=== PATIENT | female | born 1930 | race Caucasian/White ===

== ENCOUNTER → 2016-05-30 | Outpatient (CLI) | payer MEDICARE, OTHER ==
[~2016-05-30] MED LIST: AMLO5TAB2 PO; ASPI-587 PO; ATOR20TA66 PO; CARV25TA PO; CEFD300C3 PO; CHOL50003 PO; CYAN10007 PO; INDA1.25 PO; LINE600T5 PO; LISI-597 PO; LISI10TA2 PO; SIMV20TA3 PO
--- NOTE | 2016-05-31 19:24 | Diagnostic Imaging Report ---
INDICATION: Bilateral diagnostic mammogram. This study was compared to the prior exams of 11/12/15, 05/07/15 and 09/24/13. At this time, there are no current complaints. The current study was also evaluated with a Computer Aided Detection (CAD) system. FINDINGS: The screening mammogram performed on 05/07/15 noted increasing calcifications in the upper-outer aspect of the left breast. The subsequent diagnostic mammogram on 05/19/15 indicated that these calcifications did not have an aggressive appearance and are most likely benign. On this study, the calcifications in question do not seem to have changed significantly. I do suspect that they are benign. I would recommend that a six-month followup exam of both breasts be performed for continued evaluation, however. There are scattered fibroglandular densities in each breast which could obscure a lesion. When compared to the prior exam, there has been no significant change, however. There is no primary or secondary sign of malignancy noted. IMPRESSION: The calcifications in the upper-outer quadrants of each breast seen previously are again evident and do not appear to have changed significantly. Most likely, these are benign. Recommendations as above. ACR BI-RADS Category 3: Probably benign findings. Result letter will be mailed to the patient. Note: At least 10% of breast cancer is not imaged by mammography. Dictated by: Dictated on workstation # [id number]
== END ==
LOC: RAD 11:58
PROVIDERS: ATTEND Nurse Practitioner Family
DX: R92.1 Mammographic calcification found on diagnostic imaging of breast (principal)
CPT/HCPCS: 77066

== ENCOUNTER → 2016-12-19 | Outpatient (CLI) | payer MEDICARE, OTHER ==
--- NOTE | 2016-12-19 13:59 | Diagnostic Imaging Report ---
EXAMINATION: Bilateral diagnostic mammogram. The current study was also evaluated with a Computer Aided Detection (CAD) system. A tomographic evaluation was also performed. INDICATION: Calcifications in the upper outer aspect of each breast. COMPARISON: 05/30/2016. FINDINGS: The calcifications in the upper outer aspect of each breast appear unchanged from the prior exam with no focal mass identified. Allowing for technique and positional differences, no suspicious change is seen. IMPRESSION: No significant change. ACR BI-RADS Category 2: Benign findings. Result letter will be mailed to the patient. Note: At least 10% of breast cancer is not imaged by mammography. Dictated by: Dictated on workstation # [id number]
== END ==
LOC: RAD 12:36
PROVIDERS: ATTEND Family Medicine
DX: R92.8 Other abnormal and inconclusive findings on diagnostic imaging of breast (principal)
CPT/HCPCS: 77066

== ENCOUNTER 2017-02-19 16:31 | Emergency (ER) | payer MEDICARE, OTHER ==
[~2017-02-19] VITALS: Ht 157.5 cm; Wt 58.5 kg
--- OUTSIDE RECORDS SUMMARY | 2017-02-19 16:35 | XMS REPORT | Clinical Summary ---
Author Author [facility] Organization [facility] Address Unknown Phone Unavailable Care Team Providers Care Dry Cleaning Checker Name Role Phone PCP Unavailable Source Comments Some departments are not documenting in the electronic medical record. If you do not see the information that you expected, contact Release of Information in the Health Information Management department at [phone] for further assistance in locating additional records.[facility] Allergies Active Allergy Reactions Severity Noted Date Comments Amoxicillin-Pot RASH Medium 10/14/2014 Rash about 20-30 years Clavulanate ago per patient, tolerated ertapenem Nitrofurantoin UNKNOWN Low 09/05/2014 Macrocrystalline Current Medications Prescription Sig. Disp. Refills Start End Date Status Date fluticasone (FLONASE) 50 Apply 1 [place] to each Active mcg/actuation nasal spray nostril as directed daily. carvedilol (COREG) 25 mg Take 1 Tab by mouth twice 60 Tab 3 09/15/19 Active tablet daily. 15 amLODIPine (NORVASC) 5 mg Take 2 Tabs by mouth 30 Tab 3 09/15/19 Active tablet daily. 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 No evidence of recurrent retention. Voiding well. F/u w/ [facility] prn. Family History Medical History Relation Name Comments Heart Attack Mother Hypertension Mother Relation Name Status Comments Mother Social History Tobacco Use Types Packs/Day Years Used Date Never Smoker Smokeless Tobacco: Never Used Alcohol Use Drinks/Week oz/Week Comments No Sex Assigned at Date Recorded Not on file Last Filed Vital Signs Vital Sign Reading Time Taken Blood Pressure 150/62 10/14/2014 2:29 PM CDT Pulse 66 10/14/2014 2:29 PM CDT Temperature 36.5 C (97.7 F) 10/14/2014 1:08 PM CDT Respiratory Rate 12 10/14/2014 1:08 PM CDT Oxygen Saturation 94% 09/14/2014 3:15 PM CDT Inhaled Oxygen - - Concentration Weight 61.2 kg (135 lb) 10/14/2014 2:29 PM CDT Height 154.9 cm (5' 1") 10/14/2014 2:29 PM CDT Body Mass Index 25.51 10/14/2014 2:29 PM CDT Plan of Treatment Health Maintenance Due Date Last Done Comments PHYSICAL (COMPREHENSIVE) 04/29/1937 EXAM PERTUSSIS VACCINE 04/29/1942 TETANUS VACCINE 04/29/1948 SHINGLES VACCINE 1991 OSTEOPOROSIS SCREENING 04/29/1996 PREVNAR/PNEUMOVAX (#1) 04/29/1996 INFLUENZA VACCINE 09/27/2016 Results Not on filefrom Last 3 Months
--- OUTSIDE RECORDS SUMMARY | 2017-02-19 16:37 | XMS REPORT | Continuity of Care Document ---
Author Author [facility] Organization [facility] Address Unknown Phone Unavailable Allergies Active Description Code Type Severity Reaction Onset Reported/Identified Relationship to Patient Clinical Status Yes nitrofurantoin [id number] Drug Allergy Unknown N/A 10/28/2013 Medications There is no data. Problems Date Dx Coded Attending Type Code Diagnosis Diagnosed By 10/28/2013 YASMEEN TAYLOR APRN Ot 459.89 CIRCULATORY DISEASE NEC 10/28/2013 YASMEEN TAYLOR APRN Ot 729.5 PAIN IN LIMB 08/16/2014 TERRANCE NIEVES, LAKESHA Ewing Ot 288.60 LEUKOCYTOSIS, UNSPECIFIED 08/16/2014 LAKESHA CARLOS MD Ot 780.60 FEVER, UNSPECIFIED 08/16/2014 LAKESHA CARLOS MD Ot 784.0 HEADACHE 08/18/2014 MICHELE NIEVES, NELY Alves Ot 401.9 08/18/2014 MICHELE NIEVES, NELY Alves Ot 572.0 08/18/2014 MICHELE NIEVES, NELY Alves Ot V10.83 08/18/2014 MICHELE NIEVES, NELY A Ot V13.02 08/18/2014 MICHELE NIEVES, NELY A Ot 401.9 08/18/2014 MICHELE NIEVES, NELY Alves Ot 572.0 08/18/2014 MICHELE NIEVES, NELY A Ot V10.83 08/18/2014 MICHELE NIEVES, NELY A Ot V13.02 08/21/2014 MICHELE NIEVES, NELY A Ot 401.9 08/21/2014 MICHELE NIEVES, NELY Alves Ot 572.0 08/21/2014 MICHELE NIEVES, NELY A Ot V10.83 08/21/2014 MICHELE NIEVES, NLEY A Ot V13.02 08/22/2014 MICHELE NIEVES, NELY Alves Ot 401.9 HYPERTENSION NOS 08/22/2014 MICHELE NIEVES, NELY Alves Ot 572.0 ABSCESS OF LIVER 08/22/2014 MICHELE NIEVES, NELY A Ot V10.83 HX-SKIN MALIGNANCY NEC 08/22/2014 MICHELE NIEVES, NELY A Ot V13.02 PERSONAL HISTORY, URINARY (TRACT) INFECT 08/25/2014 MICHELE NIEVES, NELY A Ot 401.9 08/25/2014 MICHELE NIEVES, NELY A Ot 572.0 08/25/2014 MICHELE NIEVES, NELY A Ot V10.83 08/25/2014 MICHELE NIEVES, NELY A Ot V13.02 08/26/2014 MICHELE NIEVES, NELY A Ot 401.9 08/26/2014 MICHELE NIEVES, NELY A Ot 572.0 08/26/2014 MICHELE NIEVES, NELY A Ot V10.83 08/26/2014 MICHELE NIEVES, NELY A Ot V13.02 08/26/2014 MICHELE NIEVES, NELY A Ot 401.9 08/26/2014 MICHELE NIEVES, NELY A Ot 572.0 08/26/2014 MICHELE NIEVES, NELY A Ot V10.83 08/26/2014 MICHELE NIEVES, NELY A Ot V13.02 09/01/2014 MICHELE NIEVES, NELY A Ot 041.04 STREPTOCOCCUS INFECTION NOS, GROUP D (EN 09/01/2014 MICHELE NIEVES, NELY A Ot 276.8 HYPOPOTASSEMIA 09/01/2014 MICHELE NIEVES, NELY A Ot 285.9 ANEMIA NOS 09/01/2014 MICHELE NIEVES, NELY A Ot 401.9 HYPERTENSION NOS 09/01/2014 MICHELE NIEVES, NELY A Ot 572.0 ABSCESS OF LIVER 09/01/2014 MICHELE NIEVES, NELY A Ot V10.83 HX-SKIN MALIGNANCY NEC 09/01/2014 MICHELE NIEVES, NELY A Ot V13.02 PERSONAL HISTORY, URINARY (TRACT) INFECT 09/05/2014 TIKI NIEVES, JUAN DAVID T Ot 038.9 SEPTICEMIA NOS 09/05/2014 TIKI NIEVES, JUAN DAVID T Ot 401.9 HYPERTENSION NOS 09/05/2014 TIKI NIEVES, JUAN DAVID T Ot 572.0 ABSCESS OF LIVER 09/05/2014 JUAN DAVID FAIRBANKS MD T Ot 780.60 FEVER, UNSPECIFIED 09/05/2014 JUAN DAVID FAIRBANKS MD T Ot 784.0 HEADACHE 09/05/2014 TIKI NIEVES, JUAN DAVID Morales Ot 995.91 SEPSIS 09/05/2014 TIKI NIEVES, JUAN DAVID Morales Ot V58.69 OT MED,LT,CURRENT USE 09/18/2014 MICHELE NIEVES, NELY Alves Ot 285.9 ANEMIA NOS 09/18/2014 NELY BAUTISTA MD Ot 572.0 ABSCESS OF LIVER 10/14/2014 KIRK BROWN MD Ot 572.0 10/15/2014 KIRK BROWN MD Ot 572.0 10/16/2014 KARLA NIEVES, DONTRELL Alves Ot 572.0 10/16/2014 KARLA NIEVES, DONTRELL Alves Ot V58.62 10/24/2014 KARLA NIEVES, DONTRELL Alves Ot 572.0 10/24/2014 KARLA NIEVES, DONTRELL A Ot V58.62 10/28/2014 MICHELE NIEVES, NELY Alves Ot 285.9 10/28/2014 NELY BAUTISTA MD Ot 572.0 10/30/2014 KIRK BROWN MD Ot 285.9 10/30/2014 KIRK BROWN MD Ot 572.0 11/10/2014 KIRK BROWN MD Ot 572.0 11/11/2014 KARLA NIEVES, DONTRELL Alves Ot 572.0 11/13/2014 KARLA NIEVES, DONTRELL Alves Ot 572.0 11/13/2014 KARLA NIEVES, DONTRELL A Ot V58.62 01/01/2015 NELY BAUTISTA MD Ot M79.671 02/24/2015 ALBERT HUDDLESTON MD Ot S93.401A 02/24/2015 ALBERT HUDDLESTON MD Ot W18.49XA 02/24/2015 ALBERT HUDDLESTON MD Ot Y99.8 03/20/2015 ALBERT HUDDLESTON MD Ot S93.401A SPRAIN OF UNSPECIFIED LIGAMENT OF RIGHT 03/20/2015 ALBERT HUDDLESTON MD Ot W18.49XA OTH SLIPPING, TRIPPING AND STUMBLING W/O 03/20/2015 ALBERT HUDDLESTON MD Ot Y99.8 OTHER EXTERNAL CAUSE STATUS 05/07/2015 Ot V10.02 05/07/2015 Ot V76.12 05/07/2015 JACKI NIEVES, MICHAEL Mcconnell Ot 733.00 05/07/2015 JACKI NIEVES, MICHAEL M Ot V76.12 05/07/2015 JACKI NIEVES, MICHAEL M Ot 786.05 05/07/2015 JACKI NIEVES, MICAHEL M Ot V76.12 05/07/2015 STEPHANIE NIEVES, KIRK J Ot 572.0 05/07/2015 STEPHANIE NIEVES, KIRK J Ot 572.0 05/07/2015 KARLA NIEVES, DONTRELL A Ot 572.0 05/07/2015 KARLA NIEVES, DONTRELL A Ot V58.62 05/07/2015 KARLA NIEVES, DONTRELL A Ot 572.0 05/07/2015 KARLA NIEVES, DONTRELL A Ot V58.62 05/07/2015 STEPHANIE NIEVES, KIRK J Ot 285.9 05/07/2015 STEPHANIE NIEVES, KIRK J Ot 572.0 05/07/2015 MICHELE NIEVES, NELY A Ot 285.9 05/07/2015 MICHELE NIEVES, NELY A Ot 572.0 05/07/2015 STEPHANIE NIEVES, KIRK J Ot 572.0 05/07/2015 KARLA NIEVES, DONTRELL A Ot 572.0 05/07/2015 KARLA NIEVES, DONTRELL A Ot 572.0 05/07/2015 KARLA NIEVES, DONTRELL A Ot V58.62 05/07/2015 MICHELE NIEVES, NELY A Ot M79.671 05/11/2015 MICHELE NIEVES, NELY A Ot I51.7 05/11/2015 MICHELE NIEVES, NELY A Ot M85.80 05/11/2015 MICHELE NIEVES, NELY A Ot R92.8 05/11/2015 MICHELE NIEVES, NELY A Ot Z12.31 05/11/2015 MICHELE NIEVES, NELY A Ot I51.7 05/11/2015 MICHELE NIEVES, NELY A Ot M85.80 05/11/2015 MICHELE NIEVES, NELY A Ot R92.8 05/11/2015 MICHELE NIEVES, NELY A Ot Z12.31 05/20/2015 ANGELA BENDER Ot R92.8 06/02/2015 MICHELE NIEVES, NELY A Ot I51.7 06/02/2015 NELY BAUTISTA MD Ot M85.80 06/02/2015 NELY BAUTISTA MD A Ot R92.8 06/02/2015 NELY BAUTISTA MD Ot Z12.31 06/09/2015 YULIA ANGELA CONNORS Ot R92.8 08/28/2015 LAKESHA CARLOS MD Ot 288.60 LEUKOCYTOSIS, UNSPECIFIED 08/28/2015 LAKESHA CARLOS MD Ot 780.60 FEVER, UNSPECIFIED 08/28/2015 LAKESHA CARLOS MD Ot 784.0 HEADACHE 09/28/2015 KIRK BROWN MD Ot 285.9 ANEMIA NOS 09/28/2015 KIRK BROWN MD Ot 572.0 ABSCESS OF LIVER 11/12/2015 NELY BAUTISTA MD A Ot R92.2 INCONCLUSIVE MAMMOGRAM 11/13/2015 NELY BAUTISTA MD Ot R92.2 INCONCLUSIVE MAMMOGRAM 11/16/2015 NELY BAUTISTA MD Ot R92.2 INCONCLUSIVE MAMMOGRAM 11/25/2015 NELY BAUTISTA MD Ot R92.2 INCONCLUSIVE MAMMOGRAM 12/29/2015 LAKESHA CARLOS MD Ot 288.60 LEUKOCYTOSIS, UNSPECIFIED 12/29/2015 LAKESHA CARLOS MD Ot 780.60 FEVER, UNSPECIFIED 12/29/2015 LAKESHA CARLOS MD Ot 784.0 HEADACHE 05/30/2016 Ot V10.02 HX-ORAL/ PHARYNX MALG NEC 05/30/2016 Ot V76.12 OTH SCREEN MAMMO-MALIGN NEOPLASM OF RAJANI 05/30/2016 MICHAEL ECHEVERRIA MD Ot 733.00 OSTEOPOROSIS NOS 05/30/2016 MICHAEL ECHEVERRIA MD Ot V76.12 OTH SCREEN MAMMO-MALIGN NEOPLASM OF RAJANI 05/30/2016 MICHAEL ECHEVERRIA MD Ot 786.05 SHORTNESS OF BREATH 05/30/2016 MICHAEL ECHEVERRIA MD Ot V76.12 OTH SCREEN MAMMO-MALIGN NEOPLASM OF RAJANI 05/30/2016 KIRK BROWN MD Ot 572.0 ABSCESS OF LIVER 05/30/2016 KIRK BROWN MD Ot 572.0 ABSCESS OF LIVER 05/30/2016 DONTRELL ACOSTA MD A Ot 572.0 ABSCESS OF LIVER 05/30/2016 DONTRELL ACOSTA MD A Ot V58.62 ENCOUNT FOR LONG-TERM(CURRENT) USE OF AN 05/30/2016 DONTRELL ACOSTA MD A Ot 572.0 ABSCESS OF LIVER 05/30/2016 DONTRELL ACOSTA MD Ot V58.62 ENCOUNT FOR LONG-TERM(CURRENT) USE OF AN 05/30/2016 KIRK BROWN MD Ot 285.9 ANEMIA NOS 05/30/2016 KIRK BROWN MD J Ot 572.0 ABSCESS OF LIVER 05/30/2016 NELY BAUTISTA MD Ot 285.9 ANEMIA NOS 05/30/2016 NELY BAUTISTA MD Ot 572.0 ABSCESS OF LIVER 05/30/2016 KIRK BROWN MD Ot 572.0 ABSCESS OF LIVER 05/30/2016 DONTRELL ACOSTA MD A Ot 572.0 ABSCESS OF LIVER 05/30/2016 DONTRELL ACOSTA MD Ot 572.0 ABSCESS OF LIVER 05/30/2016 DONTRELL ACOSTA MD A Ot V58.62 ENCOUNT FOR LONG-TERM(CURRENT) USE OF AN 05/30/2016 NELY BAUTISTA MD Ot M79.671 PAIN IN RIGHT FOOT 05/30/2016 NELY BAUTISTA MD Ot I51.7 CARDIOMEGALY 05/30/2016 NELY BAUTISTA MD Ot M85.80 OTH DISRD OF BONE DENSITY AND STRUCTURE, 05/30/2016 NELY BAUTISTA MD Ot R92.8 OTH ABN AND INCONCLUSIVE FINDINGS ON DX 05/30/2016 NELY BAUTISTA MD Ot Z12.31 ENCNTR SCREEN MAMMOGRAM FOR MALIGNANT NE 05/30/2016 ANGELA BENDER Ot R92.8 OTH ABN AND INCONCLUSIVE FINDINGS ON DX 05/30/2016 NELY BAUTISTA MD Ot R92.2 INCONCLUSIVE MAMMOGRAM 05/30/2016 ANTHONY OROZCO APRN Ot R92.1 MAMMOGRAPHIC CALCIFCN FOUND ON DIAGNOSTI 05/30/2016 ANTHONY OROZCO APRN Ot R92.1 MAMMOGRAPHIC CALCIFCN FOUND ON DIAGNOSTI 05/31/2016 ANTHONY OROZCO APRN Ot R92.1 MAMMOGRAPHIC CALCIFCN FOUND ON DIAGNOSTI 07/01/2016 PAM ANTHONY Jayesh DIALYSIS CLINICAL MANAGER Ot R92.1 MAMMOGRAPHIC CALCIFCN FOUND ON DIAGNOSTI 12/19/2016 Ot V10.02 HX-ORAL/ PHARYNX MALG NEC 12/19/2016 Ot V76.12 OTH SCREEN MAMMO-MALIGN NEOPLASM OF RAJANI 12/19/2016 MICHAEL ECHEVERRIA MD Ot 733.00 OSTEOPOROSIS NOS 12/19/2016 MICHAEL ECHEVERRIA MD Ot V76.12 OTH SCREEN MAMMO-MALIGN NEOPLASM OF RAJANI 12/19/2016 MCIHAEL ECHEVERRIA MD Ot 786.05 SHORTNESS OF BREATH 12/19/2016 MICHAEL ECHEVERRIA MD Ot V76.12 OTH SCREEN MAMMO-MALIGN NEOPLASM OF RAJANI 12/19/2016 KIRK BROWN MD Ot 572.0 ABSCESS OF LIVER 12/19/2016 KIRK BROWN MD Ot 572.0 ABSCESS OF LIVER 12/19/2016 DONTRELL ACOSTA MD Ot 572.0 ABSCESS OF LIVER 12/19/2016 DONTRELL ACOSTA MD A Ot V58.62 ENCOUNT FOR LONG-TERM(CURRENT) USE OF AN 12/19/2016 DONTRELL ACOSTA MD Ot 572.0 ABSCESS OF LIVER 12/19/2016 DONTRELL ACOSTA MD Ot V58.62 ENCOUNT FOR LONG-TERM(CURRENT) USE OF AN 12/19/2016 KIRK BROWN MD Ot 285.9 ANEMIA NOS 12/19/2016 KIRK BROWN MD Ot 572.0 ABSCESS OF LIVER 12/19/2016 NELY BAUTISTA MD Ot 285.9 ANEMIA NOS 12/19/2016 NELY BAUTISTA MD Ot 572.0 ABSCESS OF LIVER 12/19/2016 KIRK BROWN MD Ot 572.0 ABSCESS OF LIVER 12/19/2016 DONTRELL ACOSTA MD A Ot 572.0 ABSCESS OF LIVER 12/19/2016 DONTRELL ACOSTA MD A Ot 572.0 ABSCESS OF LIVER 12/19/2016 DONTRELL ACOSTA MD A Ot V58.62 ENCOUNT FOR LONG-TERM(CURRENT) USE OF AN 12/19/2016 NELY BAUTISTA MD Ot M79.671 PAIN IN RIGHT FOOT 12/19/2016 NELY BAUTISTA MD Ot I51.7 CARDIOMEGALY 12/19/2016 NELY BAUTISTA MD Ot M85.80 OTH DISRD OF BONE DENSITY AND STRUCTURE, 12/19/2016 NELY BAUTISTA MD Ot R92.8 OTH ABN AND INCONCLUSIVE FINDINGS ON DX 12/19/2016 NELY BAUTISTA MD Ot Z12.31 ENCNTR SCREEN MAMMOGRAM FOR MALIGNANT NE 12/19/2016 ANGELA BENDER Ot R92.8 OTH ABN AND INCONCLUSIVE FINDINGS ON DX 12/19/2016 NELY BAUTISTA MD Ot R92.2 INCONCLUSIVE MAMMOGRAM 12/19/2016 ANTHONY OROZCO APRN Ot R92.1 MAMMOGRAPHIC CALCIFCN FOUND ON DIAGNOSTI 12/19/2016 NELY BAUTISTA MD Ot R92.8 OTH ABN AND INCONCLUSIVE FINDINGS ON DX 01/10/2017 NELY BAUTISTA MD Ot R92.8 OTH ABN AND INCONCLUSIVE FINDINGS ON DX Procedures Code Description Performed By Performed On 50.91 PERCUTAN LIVER ASPIRAT 08/18/2014 54.91 PERCUTANEOUS ABDOMINAL DRAINAGE 08/26/2014 Results There is no data. Encounters ACCT No. Visit Date/Time Discharge Status Pt. Type Provider Facility Loc./Unit Complaint [id number] 12/19/2016 12:36:00 12/19/2016 23:59:59 CLS Outpatient NELY BAUTISTA MD [facility] RAD 6 MO FOLLOW UP-ABN MAMMOGRAM [id number] 05/30/2016 11:58:00 05/30/2016 23:59:59 CLS Outpatient ANTHONY OROZCO APRN [facility] RAD 6 MO FOLLOW UP [id number] 11/12/2015 08:35:00 11/12/2015 23:59:59 CLS Outpatient NELY BAUTISTA MD [facility] RAD FOLLOW UP ABNORMAL MAMMO [id number] 05/19/2015 08:12:00 05/19/2015 23:59:59 CLS Outpatient ANGELA BENDER [facility] RAD ABNORMAL MAMMO [id number] 05/07/2015 10:11:00 05/07/2015 23:59:59 CLS Outpatient NELY BAUTISTA MD [facility] RAD SCREENING, OSTEOPENIA , [id number] 03/20/2015 12:56:00 03/20/2015 23:59:59 CLS Outpatient ALBERT HUDDLESTON MD [facility] REHAB SPRAIN OF LIGAMENT OF RIGHT ANKLE [id number] 12/10/2014 18:58:00 12/10/2014 23:59:59 CLS Outpatient NELY BAUTISTA MD [facility] RAD FOOT PAIN [id number] 10/23/2014 16:10:00 10/23/2014 23:59:59 CLS Outpatient DONTRELL ACOSTA MD [facility] LIVER ABSCESS, ANTIBIOTIC TX,KIDNEY AND LYTES EVIN [id number] 10/20/2014 14:53:00 10/20/2014 23:59:59 CLS Outpatient DONTRELL ACOSTA MD [facility] LIVER ABSCESS [id number] 10/13/2014 13:05:00 10/13/2014 23:59:59 CLS Outpatient KIRK BROWN MD [facility] LIVER ABSCESS [id number] 10/06/2014 13:40:00 10/06/2014 23:59:59 CLS Outpatient KIRK BROWN MD [facility] LIVER ABSCESS [id number] 10/06/2014 13:40:00 10/06/2014 23:59:59 CLS Outpatient ENLY BAUTISTA MD [facility] HH ANEMIA [id number] 09/29/2014 13:40:00 09/29/2014 23:59:59 CLS Outpatient DONTRELL ACOSTA MD [facility] LIVER ABSCESS, IV ABX [id number] 09/25/2014 17:00:00 09/25/2014 23:59:59 CLS Outpatient DONTRELL ACOSTA MD [facility] LIVER ABSCESS [id number] 09/23/2014 13:07:00 09/23/2014 23:59:59 CLS Outpatient KIRK BROWN MD [facility] LIVER ABSCESS [id number] 09/17/2014 17:07:00 09/18/2014 15:00:00 DIS Outpatient NELY BAUTISTA MD [facility] SDC ANEMIA [id number] 09/15/2014 13:00:00 09/15/2014 23:59:59 CLS Outpatient KIRK BROWN MD [facility] HH LIVER ABSCESS [id number] 09/04/2014 21:00:00 09/05/2014 03:07:00 DIS Emergency TIKI NIEVES, JUAN DAVID Morales [facility] ER WEAKNESS,FEVER, VOMITING [id number] 08/22/2014 09:37:00 09/01/2014 10:58:00 DIS Inpatient NELY BAUTISTA MD [facility] SURGICAL SWB HEPATIC ABSCESS [id number] 08/17/2014 19:14:00 08/22/2014 09:33:00 DIS Inpatient NELY BAUTISTA MD [facility] SURGICAL LIVER ABCESS/ LEUKOCYTOSIS [id number] 08/16/2014 15:07:00 08/16/2014 19:12:00 DIS Emergency TERRANCE NIEVES, LAKESHA Ewing [facility] ER FEVER,HEADACHE [id number] 10/28/2013 16:32:00 10/28/2013 18:51:00 DIS Emergency YASMEEN TAYLOR APRN [facility] ER R KNEE BRUISING [id number] 09/24/2013 10:20:00 09/24/2013 23:59:59 CLS Outpatient MCIHAEL ECHEVERRIA MD [facility] RAD SCREENING,SOB [id number] 08/10/2012 09:37:00 08/10/2012 23:59:59 CLS Outpatient MICHAEL ECHEVERRIA MD [facility] RAD SCREENING, OSTEOPOROSIS [id number] 07/18/2011 11:18:00 Document Registration
[2017-02-19] MEDS ORDERED: TETANUS,DIPTH,PERTUSS P/F (BOOSTRIX) 0.5 ML VIAL IM ONE (18:45)
--- NOTE | 2017-02-19 18:52 | Diagnostic Imaging Report ---
INDICATION: Trauma, second digit injury COMPARISON: None FINDINGS: 3 views of the hand second digit demonstrate no fracture or dislocation. Articular surfaces are age-appropriate. Diffuse osteopenia is noted. No bony erosion seen. No foreign body. IMPRESSION: No fracture or dislocation. Dictated by: Dictated on workstation # [id number]
--- NOTE | 2017-02-19 19:13 | ED Upper Extremity ---
General Chief Complaint: Upper Extremity Stated Complaint: R HAND FINGERS LAC Nursing Triage Note: Pt cut her right index finger in a spray blender. Laceration to distal finger noted. Nursing Sepsis Screen: No Definite Risk Allergies and Home Medications Allergies Coded Allergies: nitrofurantoin (Unverified Allergy, Unknown, 10/28/13) Home Medications Amlodipine Besylate 5 Mg Tablet, 10 MG PO DAILY, (Reported) Carvedilol 25 Mg Tablet, 25 MG PO BID, (Reported) Linezolid 600 Mg Tab, 600 MG PO BID, (Reported) Past Phrrztn-[id number]-Bbaetc Hx Patient Social History Alcohol Use: Denies Use Recreational Drug Use: No Smoking Status: Never a Smoker 2nd Hand Smoke Exposure: No Recent Foreign Travel: No Contact w/Someone Who Travel: No Recent Infectious Disease Expo: No Immunizations Up To Date Tetanus Booster (TDap): Less than 5yrs Date of Pneumonia Vaccine: Sep 04, 2014 Seasonal Allergies Seasonal Allergies: Yes Surgeries History of Surgeries: Yes (facial- cheek cancer) Surgeries: Section, Hysterectomy, Tonsillectomy Respiratory History of Respiratory Disorde: No Cardiovascular History of Cardiac Disorders: Yes Cardiac Disorders: Hypertension Neurological History of Neurological Disord: No Reproductive System Hx Reproductive Disorders: No Sexually Transmitted Disease: No HIV/AIDS: No Genitourinary Genitourinary Disorders: UTI-Chronic Gastrointestinal History of Gastrointestinal Di: No Musculoskeletal History of Musculoskeletal Dis: Yes (CARPUL TUNNEL ) Endocrine History of Endocrine Disorders: No HEENT HEENT Disorders: Cataract Cancer History of Cancer: Yes (skin inside of cheek) Cancer: Melanoma Psychosocial History of Psychiatric Problem: No Integumentary History of Skin or Integumenta: No Blood Transfusions History of Blood Disorders: No Adverse Reaction to a Blood Tr: No Family Medical History Significant Family History: No Pertinent Family Hx Family Medial History: Arthritis Cataracts Deafness or hearing loss Diabetes mellitus Hypertension Myocardial infarction Respiratory disorder No Family History of: AIDS Abdominal aortic aneurysm [place]'s disease Alcoholism Alzheimer's disease Aphasia Asthma Cancer of mouth Cardiovascular disease Colon cancer Completed stroke Congenital disease Congenital heart disease Coronary thrombosis Cystic fibrosis Dementia Drug abuse Dysphasia Fibrocystic disease of breast Gastroenteritis Glaucoma Headache disorder Hypercholesterolemia Infertility Kidney disease Neoplasm Not obtainable due to adoption Osteoporosis Parkinson's disease Prostate cancer Psychosocial problem Severe allergy Thyroid disease Tuberculosis Visual disorder Physical Exam Vital Signs Vital Sign - Last 12Hours 02/19/17 17:50 Temp 98.2 Pulse 82 Resp 16 B/P (MAP) 194/84 (120) Pulse Ox 98 Capillary Refill : Less Than 3 Seconds Progress/Results/Core Measures Results/Orders My Orders Orders - JUAN DAVID FAIRBANKS MD Finger(S) (02/19/17 18:33) Dipht,Pertuss(Acell),Tet Adult (Boostrix (02/19/17 18:45) Vital Signs/I&O Vital Sign - Last 12Hours 02/19/17 17:50 Temp 98.2 Pulse 82 Resp 16 B/P (MAP) 194/84 (120) Pulse Ox 98 Blood Pressure Mean: 120 Departure Impression Impression: Primary Impression: Laceration of finger Qualified Codes: S61.210A - Laceration without foreign body of right index finger without damage to nail, initial encounter Disposition: 01 HOME, SELF-CARE Condition: Improved Departure-Patient Inst. Decision time for Depature: 19:00 Referrals: NELY BAUTISTA MD (PCP/Family) Primary Care Physician Patient Instructions: Laceration Repair With Nicolette (DC) Add. Discharge Instructions: Monitor your wound for signs of infection such as increasing redness, swelling, pus-like swelling, increasing pain or fever greater than 100F. Return to care if you notice these symptoms. Cover with a bandaid to protect the wound. Keep clean and dry except for handwashing and showering. Do not submerge until stitches are removed. Have the stitches removed in 7-10 days. Return to care if you have any other problems or concerns. You may use antibiotic ointment to keep the wound from sticking to the bandaid. Your x-rays showed no injury to the bones. All discharge instructions reviewed with patient and/or family. Voiced understanding. JUAN DAVID FAIRBANKS MD Feb 19, 2017 19:13
[2017-02-19 19:25] VITALS: BP 162/90
== END 2017-02-19 19:25 | disposition home or self-care (01) ==
LOC: EDUNIT# 16:31 → ER 16:32
DX: S61.210A Laceration without foreign body of right index finger without damage to nail, initial encounter (principal); I10 Essential (primary) hypertension; Z87.440 Personal history of urinary (tract) infections; Z90.710 Acquired absence of both cervix and uterus; Z82.49 Family history of ischemic heart disease and other diseases of the circulatory system; Z23 Encounter for immunization; Z90.89 Acquired absence of other organs; Z87.59 Personal history of other complications of pregnancy, childbirth and the puerperium; Z85.820 Personal history of malignant melanoma of skin; W29.8XXA Contact with other powered hand tools and household machinery, initial encounter
CPT/HCPCS: 12001; 73140

== ENCOUNTER 2017-03-01 16:59 | Emergency (ER) | payer MEDICARE, OTHER ==
[~2017-03-01] VITALS: Ht 160 cm; Wt 61.2 kg
[2017-03-01 17:47] VITALS: BP 140/78
== END 2017-03-01 17:36 | disposition home or self-care (01) ==
LOC: EDUNIT# 16:59 → ER 17:00
DX: S61.211A Laceration without foreign body of left index finger without damage to nail, initial encounter (principal); X58.XXXA Exposure to other specified factors, initial encounter

== ENCOUNTER 2017-11-02 10:03 | Outpatient (RCR) | payer MEDICARE, OTHER | END 2017-11-26 | disposition home or self-care (01) | LOC: DSME 10:03 | PROVIDERS: ATTEND Allergy & Immunology | DX: E11.65 Type 2 diabetes mellitus with hyperglycemia (principal); I10 Essential (primary) hypertension; E66.9 Obesity, unspecified ==

== ENCOUNTER → 2017-12-28 | Outpatient (CLI) | payer MEDICARE, OTHER ==
--- NOTE | 2017-12-28 19:14 | Diagnostic Imaging Report ---
INDICATION: Routine screening. COMPARISON: Comparison is made with prior mammograms from 12/19/2016 and 05/30/2016 as well as 11/12/2015. TECHNIQUE: 2D and 3D bilateral screening mammography was performed with computer-aided detection (CAD) system. FINDINGS: Scattered fibroglandular densities are identified bilaterally. The parenchymal pattern is stable. Benign calcifications appear stable bilaterally. No mass or malignant appearing microcalcifications are seen. The axillae are unremarkable. IMPRESSION: No mammographic features suspicious for malignancy are identified. ACR BI-RADS Category 2: Benign findings. Result letter will be mailed to the patient. Note: At least 10% of breast cancer is not imaged by mammography. Dictated by: Dictated on workstation # [id number]
== END ==
LOC: RAD 11:01
PROVIDERS: ATTEND Nurse Practitioner Family
DX: Z12.31 Encounter for screening mammogram for malignant neoplasm of breast (principal)
CPT/HCPCS: 77067

== ENCOUNTER 2018-02-01 11:15 | Outpatient (RCR) | payer MEDICARE, OTHER | END 2018-03-13 | disposition home or self-care (01) | PROVIDERS: ATTEND Nurse Practitioner Family | DX: R29.898 Other symptoms and signs involving the musculoskeletal system (principal); M17.0 Bilateral primary osteoarthritis of knee ==

== ENCOUNTER → 2018-05-31 | Outpatient (CLI) | payer MEDICARE, OTHER | LOC: CARD 13:27 | PROVIDERS: ATTEND Internal Medicine Cardiovascular Disease | DX: E78.2 Mixed hyperlipidemia (principal); I10 Essential (primary) hypertension; Z83.3 Family history of diabetes mellitus; Z82.49 Family history of ischemic heart disease and other diseases of the circulatory system; I35.0 Nonrheumatic aortic (valve) stenosis | CPT/HCPCS: 93306 ==

== ENCOUNTER 2018-06-30 13:37 | Emergency (ER) | payer OTHER, MEDICARE ==
[~2018-06-30] VITALS: Ht 160 cm; Wt 58.2 kg
--- OUTSIDE RECORDS SUMMARY | 2018-06-30 13:42 | XMS REPORT | Clinical Summary ---
Author Author [facility] Organization [facility] Address Unknown Phone Unavailable Care Team Providers Care Web[employer] Commerce Developer Name Role Phone Berenice Cohen MD PCP Ericka Jaimes MD Unavailable Darren Power MD Unavailable Leyda Freire DO Unavailable Unavailable Tad Davis MD Unavailable Darvin Galvin PA-C Unavailable Nakita Michaud DO Unavailable Scott Xiong MD Unavailable Source Comments Some departments are not documenting in the electronic medical record. If you do not see the information that you expected, contact Release of Information in the Health Information Management department at [phone] for further assistance in locating additional records.[facility] Allergies Comments Active Allergy Reactions Severity Noted Date Rash about 20-30 years ago per patient, tolerated ertapenem Amoxicillin-Pot RASH Medium 10/14/2014 Clavulanate Nitrofurantoin UNKNOWN Low 09/05/2014 Macrocrystalline Medications End Date Status Medication Sig Dispensed Refills Start Date Active fluticasone (FLONASE) 50 Apply 1 [place] 0 mcg/actuation nasal spray to each nostril as directed daily. Active carvedilol (COREG) 25 mg Take 1 Tab by 60 Tab 3 tablet mouth twice 5 daily. Active amLODIPine (NORVASC) 5 mg Take 2 Tabs 30 Tab 3 tablet by mouth 5 daily. 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 No evidence of recurrent retention. Voiding well. F/u w/ [facility] prn. Family History Medical History Relation Name Comments Heart Attack Mother Hypertension Mother Relation Name Status Comments Mother Social History Date Tobacco Use Types Packs/Day Years Used Never Smoker Smokeless Tobacco: Never Used Alcohol Use Drinks/Week oz/Week Comments No Sex Assigned at Date Recorded Not on file Industry Job Start Date Occupation Not on file Not on file Not on file Travel End Travel History Travel Start No recent travel history available. Last Filed Vital Signs Time Taken Vital Sign Reading 10/14/2014 2:29 PM CDT Blood Pressure 150/62 10/14/2014 2:29 PM CDT Pulse 66 10/14/2014 1:08 PM CDT Temperature 36.5 C (97.7 F) 10/14/2014 1:08 PM CDT Respiratory Rate 12 09/14/2014 3:15 PM CDT Oxygen Saturation 94% - Inhaled Oxygen - Concentration 10/14/2014 2:29 PM CDT Weight 61.2 kg (135 lb) 10/14/2014 2:29 PM CDT Height 154.9 cm (5' 1") 10/14/2014 2:29 PM CDT Body Mass Index 25.51 Plan of Treatment Health Maintenance Due Date Last Done Comments PHYSICAL (COMPREHENSIVE) 04/29/1937 EXAM DTAP/TDAP VACCINES (1 - 04/29/1949 Tdap) SHINGLES RECOMBINANT 04/29/1981 VACCINE (1 of 2) OSTEOPOROSIS 04/29/1996 SCREENING/MONITORING PNEUMONIA (PCV13/PPSV23) 04/29/1996 VACCINES (1 of 2 - PCV13) INFLUENZA VACCINE 11/27/2018 Results Not on filefrom Last 3 Months Insurance Type Payer Benefit Subscriber ID Effective Phone Address Plan / Dates Group Indemnity GENERIC COMMERCIAL GENERIC xxxxxxxxx 1996-P COMMERCIAL resent Advance Directives Patient has advance care planning documents, and code status on file. For more information, please contact: [facility] [address] [place] [address] Date Inactivated Comments Code Status Date Activated 09/14/2014 6:41 PM Full Code 09/05/2014 6:28 AM Provider has discussed Code Status No, more discussion w/Patient or Family? needed
--- OUTSIDE RECORDS SUMMARY | 2018-06-30 13:45 | XMS REPORT | CCD ---
Author Author Berenice Cohen Organization Berenice Cohen MD, [facility] Address [address] [place] [address] Phone Care Team Providers Care Precision Machinist Name Role Phone PP Unavailable CCM Unavailable Summary Purpose Interface Exchange Insurance Providers Payer name Policy type / Coverage type Covered democrat ID Effective Begin Date Effective End Date eziCONEX Commercial Insurance [id number] Unknown Unknown Family history Son Diagnosis Age At Onset Hypertension Unknown Brother Diagnosis Age At Onset Diabetes Unknown Renal cell carcinoma Unknown Hypertension Unknown Brother Diagnosis Age At Onset Heart disease Unknown Father Diagnosis Age At Onset Hypertension Unknown Brother Diagnosis Age At Onset Heart disease Unknown Social History Social History Element Codes Description Effective Dates Marital status Unknown 08/14/2014 Number of children Unknown 2 08/14/2014 Employment Unknown Retired 08/14/[address]: 152513505 Never smoker 08/14/[address]: 645257537 Never drinks alcohol 08/14/2014 Allergies, Adverse Reactions, Alerts Substance Reaction Codes Entered Date Inactivated Date Status AUGMENTIN hives RxNorm: 408118 08/14/2014 No Inactive Date Active HEGPWZX-MRN-ASV REDUCTASE INHIBITORS myalgias Unknown 2015 No Inactive Date Active Past Medical History Illness Codes Condition Status Onset Date Resolved Date Otalgia, bilateral ICD -9: 388.70 ICD-10: H92.03 Active 08/02/2016 Unknown Other acute sinusitis ICD-9: 461.8 ICD-10: J01.80 Active 12/17/2015 Unknown Other allergic rhinitis ICD-9: 477.8 ICD-10: J30.89 Active 12/17/2015 Unknown Acute recurrent maxillary sinusitis ICD-9: 461.0 ICD-10: J01.01 Active 07/21/2016 Unknown Otalgia, right ear ICD -9: 388.70 ICD-10: H92.01 Active 07/21/2016 Unknown Dysuria ICD-9: 788.1 ICD-10: R30.0 Active 11/19/2015 Unknown Essential (primary) hypertension ICD-9: 401.1 ICD-10: I10 Active 12/23/2015 Unknown Mixed hyperlipidemia ICD-9: 272.2 ICD-10: E78.2 Active 06/14/2015 Unknown Essential (primary) hypertension ICD-9: 401.9 ICD-10: I10 Active 06/11/2015 04/06/2016 Laceration without foreign body of left hand, subsequent encounter ICD-9: V58.89 ICD-10: S61.412D Active 04/06/2016 Unknown Encounter for general adult medical examination with abnormal findings ICD-9: V70.0 ICD-10: Z00.01 Active 01/31/2016 Unknown 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 Active 01/24/2016 Unknown Encounter for immunization ICD-9: V04.81 ICD-10: Z23 Active 11/25/2015 Unknown Other abnormal glucose ICD-9: 790.29 ICD-10: R73.09 Active 11/25/2015 Unknown Bitten by dog, initial encounter ICD-9: 879.8 ICD-10: W54.0XXA Active 10/28/2015 Unknown Cellulitis of face ICD -9: 682.0 ICD-10: L03.211 Active 10/20/2015 Unknown Dry mouth, unspecified ICD-9: 527.7 ICD-10: R68.2 Active 06/14/2015 Unknown Edema, unspecified ICD -9: 782.3 ICD-10: R60.9 Active 05/18/2015 Unknown Mammographic microcalcification found on diagnostic imaging of breast ICD-9: 793.81 ICD-10: R92.0 Active 05/18/2015 Unknown Acute nasopharyngitis [common cold] ICD-9: 460 ICD-10: J00 Active 04/23/2015 Unknown Localized edema ICD-9 : 782.3 ICD-10: R60.0 Active 04/23/2015 Unknown Abscess of liver ICD-9 : 572.0 ICD-10: K75.0 Active 03/11/2015 Unknown Anemia, unspecified ICD-9: 285.9 ICD-10: D64.9 Active 03/11/2015 Unknown Candidal stomatitis ICD-9: 112.0 ICD-10: B37.0 Active 01/11/2015 Unknown Pain in unspecified knee ICD-9: 719.46 ICD-10: M25.569 Active 01/11/2015 Unknown Pain in right foot ICD -9: 729.5 ICD-10: M79.671 Active 12/10/2014 Unknown Hypo-osmolality and hyponatremia ICD-9: 276.1 ICD-10: E87.1 Active 11/30/2014 Unknown Hypertension Unknown Active 08/14/2014 Unknown Chronic maxillary sinusitis ICD-9: 473.0 Active 08/13/2014 Unknown ESSENTIAL HYPERTENSION ICD-9: 401.9 Active 08/13/2014 Unknown Problems Condition Codes Effective Dates Condition Status Otalgia, bilateral ICD -9: 388.70 ICD-10: H92.03 08/02/2016 Active Other acute sinusitis ICD-9: 461.8 ICD-10: J01.80 12/17/2015 Active Other allergic rhinitis ICD-9: 477.8 ICD-10: J30.89 12/17/2015 Active Acute recurrent maxillary sinusitis ICD-9: 461.0 ICD-10: J01.01 07/21/2016 Active Otalgia, right ear ICD -9: 388.70 ICD-10: H92.01 07/21/2016 Active Dysuria ICD-9: 788.1 ICD-10: R30.0 11/19/2015 Active Essential (primary) hypertension ICD-9: 401.1 ICD-10: I10 12/23/2015 Active Mixed hyperlipidemia ICD-9: 272.2 ICD-10: E78.2 06/14/2015 Active Essential (primary) hypertension ICD-9: 401.9 ICD-10: I10 06/11/2015 Active Laceration without foreign body of left hand, subsequent encounter ICD-9: V58.89 ICD-10: S61.412D 04/06/2016 Active Encounter for general adult medical examination with abnormal findings ICD-9: V70.0 ICD-10: Z00.01 01/31/2016 Active 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 01/24/2016 Active Encounter for immunization ICD-9: V04.81 ICD-10: Z23 11/25/2015 Active Other abnormal glucose ICD-9: 790.29 ICD-10: R73.09 11/25/2015 Active Bitten by dog, initial encounter ICD-9: 879.8 ICD-10: W54.0XXA 10/28/2015 Active Cellulitis of face ICD -9: 682.0 ICD-10: L03.211 10/20/2015 Active Dry mouth, unspecified ICD-9: 527.7 ICD-10: R68.2 06/14/2015 Active Edema, unspecified ICD -9: 782.3 ICD-10: R60.9 05/18/2015 Active Mammographic microcalcification found on diagnostic imaging of breast ICD-9: 793.81 ICD-10: R92.0 05/18/2015 Active Acute nasopharyngitis [common cold] ICD-9: 460 ICD-10: J00 04/23/2015 Active Localized edema ICD-9 : 782.3 ICD-10: R60.0 04/23/2015 Active Abscess of liver ICD-9 : 572.0 ICD-10: K75.0 03/11/2015 Active Anemia, unspecified ICD-9: 285.9 ICD-10: D64.9 03/11/2015 Active Candidal stomatitis ICD-9: 112.0 ICD-10: B37.0 01/11/2015 Active Pain in unspecified knee ICD-9: 719.46 ICD-10: M25.569 01/11/2015 Active Pain in right foot ICD -9: 729.5 ICD-10: M79.671 12/10/2014 Active Hypo-osmolality and hyponatremia ICD-9: 276.1 ICD-10: E87.1 11/30/2014 Active Hypertension Unknown 08/14/2014 Active Chronic maxillary sinusitis ICD-9: 473.0 08/13/2014 Active ESSENTIAL HYPERTENSION ICD-9: 401.9 08/13/2014 Active Medications Medication Codes Instructions Start Date Stop Date Status Fill Instructions guaifenesin 400 mg tablet RxNorm: 121300 1 Tablet(s) PO BID as needed 08/04/2016 No Stop Date Active cefdinir 300 mg capsule RxNorm: 395061 1 Capsule(s) PO BID started by Dr. Davila 08/04/2016 08/13/2016 Active amlodipine 10 mg tablet RxNorm: 420842 1 Tablet(s) PO daily 07/201607/27/2017 Active Keflex 500 mg capsule RxNorm: 766801 1 Capsule(s) PO TID 201607/27/2016 Inactive Xanax 0.25 mg tablet RxNorm: 907039 1 Tablet(s) PO TID as needed anxiety 07/01/2016 08/27/2016 Active Zyrtec 10 mg tablet RxNorm: 6012905 1 Tablet(s) PO daily 07/0107/30/2016 Inactive amlodipine 5 mg tablet RxNorm: 908242 1 Tablet(s) PO daily 06/201607/30/2016 Inactive Keflex 500 mg capsule RxNorm: 094500 1 Capsule(s) PO TID 201607/03/2016 Inactive Keflex 500 mg capsule RxNorm: 777473 1 Capsule(s) PO TID 201606/23/2016 Inactive Keflex 500 mg capsule RxNorm: 238656 1 Capsule(s) PO TID 201606/30/2016 Inactive Flonase Allergy Relief 50 mcg/actuation nasal spray, suspension RxNorm: 6108619 USE ONE SPRAY(S) IN EACH NOSTRIL TWICE DAILY 06/20/2016 05/15/2017 Active amlodipine 10 mg tablet RxNorm: 339859 1 Tablet(s) PO daily 04/201606/28/2016 Inactive Lipitor 10 mg tablet RxNorm: 509585 1 Tablet(s) PO QHS 201609/12/2016 Active Flonase Allergy Relief 50 mcg/actuation nasal spray, suspension RxNorm: 6921882 USE ONE SPRAY(S) IN EACH NOSTRIL TWICE DAILY 04/18/2016 05/17/2016 Inactive cephalexin 500 mg capsule RxNorm: 923376 1 Capsule(s) PO TID 04/05/2016 Inactive take with probiotics BID amlodipine 10 mg tablet RxNorm: 457686 1 Tablet(s) PO daily 02/201605/29/2016 Inactive Bactroban 2 % topical cream RxNorm: 167357 1 Application TOP BID 03/30/2016 04/08/2016 Inactive Zithromax Z-Dylan 250 mg tablet RxNorm: 710821 1 Tablet(s) PO UD 03/10/2016 05/15/2016 Inactive z pack as directed Keflex 500 mg capsule RxNorm: 507653 1 Capsule(s) PO TID 201502/25/2016 Inactive take with probiotics BID acyclovir 800 mg tablet RxNorm: 746777 1 Tablet(s) PO TID 01/2402/21/2016 Inactive Zithromax Z-Dylan 250 mg tablet RxNorm: 496390 1 Tablet(s) PO UD 01/19/2016 01/24/2016 Inactive z pack Flonase Allergy Relief 50 mcg/actuation nasal spray, suspension RxNorm: 0381648 USE ONE SPRAY(S) IN EACH NOSTRIL TWICE DAILY 12/28/2015 02/25/2016 Inactive Kenalog 40 mg/mL suspension for injection RxNorm: 3434898 Milliliter(s) Inj 12/18/2015 12/18/2015 Inactive Keflex 500 mg capsule RxNorm: 342199 1 Capsule(s) PO TID 201512/24/2015 Inactive meclizine 25 mg tablet RxNorm: 147369 1 Tablet(s) PO TID as needed 12/09/2015 02/26/2016 Inactive Zithromax Z-Dylan 250 mg tablet RxNorm: 387130 1 Tablet(s) PO UD 12/09/2015 12/23/2015 Inactive z pack meclizine 25 mg tablet RxNorm: 155887 1 Tablet(s) PO TID as needed 12/09/2015 12/08/2015 Inactive Keflex 500 mg capsule RxNorm: 963360 1 Capsule(s) PO TID 201511/22/2015 Inactive Cipro 500 mg tablet RxNorm: 824188 1 Tablet(s) PO BID 201511/13/2015 Inactive Keflex 500 mg capsule RxNorm: 858788 1 Capsule(s) PO TID 201510/30/2015 Inactive Xanax 0.25 mg tablet RxNorm: 584690 1 Tablet(s) PO TID as needed anxiety 09/18/2015 11/13/2015 Inactive Keflex 500 mg capsule RxNorm: 755222 1 Capsule(s) PO TID 201508/19/2015 Inactive losartan 50 mg tablet RxNorm: 889328 1 Tablet(s) PO daily 201507/07/2015 Inactive Pepcid 20 mg tablet RxNorm: 519411 1 Tablet(s) PO BID 201507/07/2015 Inactive Pepcid 20 mg tablet RxNorm: 667200 1 Tablet(s) PO BID 201501/31/2016 Inactive losartan 50 mg tablet RxNorm: 163904 1 Tablet(s) PO daily 201501/31/2016 Inactive prednisone 20 mg tablet RxNorm: 019574 2 Tablet(s) PO daily 06/22/2015 Inactive prednisone 20 mg tablet RxNorm: 699014 2 Tablet(s) PO daily 12/23/2015 Inactive Diflucan 100 mg tablet RxNorm: 913393 TAKE ONE TABLET BY MOUTH ONCE DAILY 06/12/2015 12/23/2015 Inactive Zithromax Z-Dylan 250 mg tablet RxNorm: 393625 1 Tablet(s) PO UD 06/05/2015 07/06/2015 Inactive z pack amlodipine 5 mg tablet RxNorm: 671894 1 Tablet(s) PO daily 03/29/2016 Inactive Zetia 10 mg tablet RxNorm: 642121 1 Tablet(s) PO daily 201506/14/2015 Inactive valsartan 160 mg tablet RxNorm: 056699 1 Tablet(s) PO daily 07/07/2015 Inactive Lipitor 10 mg tablet RxNorm: 087005 1 Tablet(s) PO QHS 201505/18/2015 Inactive Lipitor 10 mg tablet RxNorm: 147177 1 Tablet(s) PO QHS 201504/27/2015 Inactive Zithromax 250 mg tablet RxNorm: 411956 Tablet(s) PO UD 201504/28/2015 Inactive Keflex 500 mg capsule RxNorm: 989906 1 Capsule(s) PO TID 201503/22/2015 Inactive Keflex 500 mg capsule RxNorm: 941778 1 Capsule(s) PO TID 201504/01/2015 Inactive Xanax 0.25 mg tablet RxNorm: 619636 1 Tablet(s) PO TID as needed anxiety 03/12/2015 07/04/2016 Inactive carvedilol 25 mg tablet RxNorm: 790455 1 Tablet(s) PO BID 03/1201/31/2016 Inactive amlodipine 5 mg tablet RxNorm: 137918 1 Tablet(s) PO BID 201505/18/2015 Inactive Diflucan 100 mg tablet RxNorm: 689805 1 Tablet(s) PO daily 03/21/2015 Inactive Diflucan 100 mg tablet RxNorm: 852008 1 Tablet(s) PO daily 02/14/2015 Inactive Diflucan 100 mg tablet RxNorm: 087676 1 Tablet(s) PO daily 06/201401/05/2015 Inactive Diflucan 100 mg tablet RxNorm: 264534 1 Tablet(s) PO daily 06/201412/31/2014 Inactive nystatin 100,000 unit/mL oral suspension RxNorm: 011968 5 Milliliter(s) PO QID 12/24/2014 06/14/2015 Inactive nystatin 100,000 unit/mL oral suspension RxNorm: 505273 5 Milliliter(s) PO QID 12/24/2014 12/23/2014 Inactive Zithromax 250 mg tablet RxNorm: 843333 1 Tablet(s) PO daily 12/19/2014 Inactive Zithromax 250 mg tablet RxNorm: 313305 1 Tablet(s) PO daily 12/14/2014 Inactive Flonase Allergy Relief 50 mcg/actuation nasal spray, suspension RxNorm: 1 [place] NASAL BID 12/11/2014 12/10/2014 Inactive Flonase Allergy Relief 50 mcg/actuation nasal spray, suspension RxNorm: 9084083 1 [place] NASAL BID 12/11/20142015 Inactive amlodipine 5 mg tablet RxNorm: 651535 2 Tablet(s) PO daily 11/13/2014 Inactive amlodipine 5 mg tablet RxNorm: 896344 2 Tablet(s) PO daily 03/11/2015 Inactive Lotrisone 1 %-0.05 % topical cream RxNorm: 110058 1 TOP BID until healed 10/17/2014 10/30/2014 Inactive Lotrisone 1 %-0.05 % topical cream RxNorm: 446925 1 TOP BID until healed 10/16/2014 10/16/2014 Inactive Lotrisone 1 %-0.05 % topical cream RxNorm: 549708 1 TOP BID until healed 10/06/2014 10/15/2014 Inactive Keflex 500 mg capsule RxNorm: 251534 1 Capsule(s) PO TID 201408/11/2014 Inactive Keflex 500 mg capsule RxNorm: 655667 1 Capsule(s) PO TID 201408/18/2014 Inactive clotrimazole 1 % topical solution RxNorm: 744106 1 Drop(s) TOP BID No Start Date Active Vitamin D3 5,000 unit tablet RxNorm: 332335 1 Tablet(s) PO daily No Start Date Active aspirin 81 mg tablet RxNorm: 853074 1 Tablet(s) PO daily No Start Date Active guaifenesin 400 mg tablet RxNorm: 820283 1 Tablet(s) PO BID as needed No Start Date 08/03/2016 Inactive Lotrisone 1 %-0.05 % topical cream RxNorm: 296439 1 TOP BID until healed No Start Date 10/05/2014 Inactive lisinopril 40 mg tablet RxNorm: 648057 1 Tablet(s) PO daily No Start Date 05/18/2015 Inactive amlodipine 5 mg tablet RxNorm: 076296 1 Tablet(s) PO daily No Start Date 11/13/2014 Inactive indapamide 1.25 mg tablet RxNorm: 676212 1 Tablet(s) PO daily No Start Date 01/31/2016 Inactive Medication Administered Medication Codes Instructions Start Date Status Kenalog 40 mg/mL suspension for injection RxNorm: 1821343 Milliliter 12/18/2015 No longer Active Immunizations Vaccine Codes Date Status Influenza CVX: 141 11/26/2015 completed PPD Unknown 06/05/2015 completed Influenza CVX: 141 12/01/2014 completed Influenza CVX: 141 11/27/2012 completed Pneumococcal CVX: 33 11/28/2011 completed Assessments Condition Codes Effective Dates Other acute sinusitis ICD-10: J01.80 ICD-9: 461.8 08/02/2016 Other allergic rhinitis ICD-10: J30.89 ICD-9: 477.8 08/02/2016 Otalgia, bilateral ICD-10: H92.03 ICD-9: 388.70 08/02/2016 Acute recurrent maxillary sinusitis ICD-10: J01.01 ICD-9: 461.0 07/21/2016 Otalgia, right ear ICD-10: H92.01 ICD-9: 388.70 07/21/2016 Dysuria ICD-10: R30.0 ICD-9: 788.1 07/01/2016 Mixed hyperlipidemia ICD-10: E78.2 ICD-9: 272.2 05/16/2016 Essential (primary) hypertension ICD-10: I10 ICD-9: 401.1 05/16/2016 Essential (primary) hypertension ICD-10: I10 ICD-9: 401.9 04/06/2016 Laceration without foreign body of left hand, subsequent encounter ICD-10: S61.412D ICD-9: V58.89 04/06/2016 Encounter for general adult medical examination with abnormal findings ICD-10: Z00.01 ICD-9: V70.0 02/01/2016 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 01/25/2016 Encounter for immunization ICD-10: Z23 ICD-9: V04.81 11/26/2015 Other abnormal glucose ICD-10: R73.09 ICD-9: 790.29 11/26/2015 Bitten by dog, initial encounter ICD-10: W54.0XXA ICD-9: 879.8 10/29/2015 Cellulitis of face ICD-10: L03.211 ICD-9: 682.0 10/21/2015 Dry mouth, unspecified ICD-10: R68.2 ICD-9: 527.7 06/15/2015 Edema, unspecified ICD-10: R60.9 ICD-9: 782.3 05/19/2015 Mammographic microcalcification found on diagnostic imaging of breast ICD-10: R92.0 ICD-9: 793.81 05/19/2015 Localized edema ICD-10: R60.0 ICD-9: 782.3 04/24/2015 Acute nasopharyngitis [common cold] ICD-10: J00 ICD-9: 460 04/24/2015 Abscess of liver ICD-10: K75.0 ICD-9: 572.0 03/12/2015 Anemia, unspecified ICD-10: D64.9 ICD-9: 285.9 03/12/2015 Candidal stomatitis ICD-10: B37.0 ICD-9: 112.0 01/12/2015 Pain in unspecified knee ICD-10: M25.569 ICD-9: 719.46 01/12/2015 Pain in right foot ICD-10: M79.671 ICD-9: 729.5 12/11/2014 Hypo-osmolality and hyponatremia ICD-10: E87.1 ICD-9: 276.1 12/01/2014 ESSENTIAL HYPERTENSION ICD-9: 401.9 08/14 Chronic maxillary sinusitis ICD-9: 473.0 08/14/2014 Reason For Visit Reason For Visit Effective Dates Notes sinus congestion 08/02/2016 earache 07/21/2016 urinary urgency 07/01/2016 hypertension 05/16/2016 wound follow up 04/06/2016 earache 03/30/2016 Annual Medicare Wellness Exam 02/01/2016 earache 01/25/2016 hypertension 12/24/2015 cough 12/18/2015 hypertension 11/26/2015 skin lesion 10/21/2015 hypertension 06/15/2015 abnormal test results 05/19/2015 cough 04/24/2015 hypertension 03/12/2015 edema 01/12/2015 bone pain 12/11/2014 _ 12/01/2014 white spot in mouths sinus congestion 08/14/2014 Results Observation Observation Code Item Item Code Result Date Urine Culture Ucult Complete >100,000 col/ml aerobic growth sent to ref lab 06/25/2016 Urinalysis Ord28 U-Color Yellow 06/24/2016 Urinalysis Ord28 U-Clarity Cloudy 06/24/2016 Urinalysis Ord28 U-Gluc Negative 06/24/2016 Urinalysis Ord28 U-Bili Negative 06/24/2016 Urinalysis Ord28 U-Ketone Negative 06/24/2016 Urinalysis Ord28 U-SG 1.020 06/24/2016 Urinalysis Ord28 U-Blood Small 06/24/2016 Urinalysis Ord28 U-pH 5.5 06/24/2016 Urinalysis Ord28 U-Protein 100 mg/dL 06/24/2016 Urinalysis Ord28 U-Urobilin 0.2 E.U./dL E.U./dL 06/24/2016 Urinalysis Ord28 U-Nitrites Positive 06/24/2016 Urinalysis Ord28 U-Leuk Small 06/24/2016 Urinalysis Ord28 U-Bact 4+ 06/24/2016 Urinalysis Ord28 U-Squamous Epi None per/HPF 06/24/2016 Urinalysis Ord28 U-Crystal None per/HPF 06/24/2016 Urinalysis Ord28 U-Mucus None 06/24/2016 Urinalysis Ord28 U-Renal tubular epi None 06/24/2016 Urinalysis Ord28 U-RBC 5-10 per/HPF 06/24/2016 Urinalysis Ord28 U-Transitional epi None per/HPF 06/24/2016 Urinalysis Ord28 U-WBC TNTC per/HPF 06/24/2016 Urinalysis Ord28 U-Cast None per/HPF 06/24/2016 Urinalysis Ord28 U-VOL VOLUME SUFFICIENT (10mL) 06/24/2016 Urinalysis Ord28 U-Com Culture to follow 06/24/2016 Urinalysis Ord28 U-Yeast NEGATIVE 06/24/2016 Cbc With Differential Ord2 WBC 8.04 K/ul 04/12/2016 Cbc With Differential Ord2 RBC 4.16 M/ul 04/12/2016 Cbc With Differential Ord2 HGB 13.0 g/dl 04/12/2016 Cbc With Differential Ord2 Neut% 49.2 % 04/12/2016 Cbc With Differential Ord2 HCT 38.8 % 04/12/2016 Cbc With Differential Ord2 MCV 93.3 fl 04/12/2016 Cbc With Differential Ord2 Lymph% 35.4 % 04/12/2016 Cbc With Differential Ord2 MCH 31.3 pg 04/12/2016 Cbc With Differential Ord2 [place]% 13.3 % 04/12/2016 Cbc With Differential Ord2 MCHC 33.5 pg 04/12/2016 Cbc With Differential Ord2 Eos% 1.6 % 04/12/2016 Cbc With Differential Ord2 PLT 209 K/ul 04/12/2016 Cbc With Differential Ord2 Baso% 0.5 % 04/12/2016 Cbc With Differential Ord2 RDW 13.7 % 04/12/2016 Cbc With Differential Ord2 Neut ABS# 3.95 K/ul 04/12/2016 Cbc With Differential Ord2 Lymph ABS# 2.85 K/ul 04/12/2016 Cbc With Differential Ord2 [place] ABS# 1.1 K/ul 04/12/2016 Cbc With Differential Ord2 Eos ABS# 0.1 K/ul 04/12/2016 Cbc With Differential Ord2 Baso ABS# 0.0 K/ul 04/12/2016 Comp Metabolic Ici255 NA 129 mEq/L 04/12/2016 Comp Metabolic Lwi182 K 4.0 mEq/L 04/12/2016 Comp Metabolic Oxh436 CL 93 mEq/L 04/12/2016 Comp Metabolic Tmx154 CO2 29.0 mEq/L 04/12/2016 Comp Metabolic Ptr966 ANION GAP 11 04/12/2016 Comp Metabolic Ior215 GLUCOSE 100 mg/dL 04/12/2016 Comp Metabolic Fby224 Creat 1.0 mg/dL 04/12/2016 Comp Metabolic Ear575 eGFR 55 ml/min/1.73m2 04/12/2016 Comp Metabolic Njc138 BUN 19 mg/dL 04/12/2016 Comp Metabolic Cgk514 B/C Ratio 18.8 Ratio 04/12/2016 Comp Metabolic Fhc931 CALCIUM 9.3 mg/dL 04/12/2016 Comp Metabolic Sjm617 ALK PHOS 38 U/L 04/12/2016 Comp Metabolic Lxj071 AST(SGOT) 17 U/L 04/12/2016 Comp Metabolic Xgm656 ALT(SGPT) 11 U/L 04/12/2016 Comp Metabolic Rfb001 BILI T 1.0 mg/dL 04/12/2016 Comp Metabolic Jxs389 ALBUMIN 4.2 g/dL 04/12/2016 Comp Metabolic Age409 TPRO 6.6 g/dL 04/12/2016 Comp Metabolic Own765 GLOB 2.4 g/dL 04/12/2016 Comp Metabolic Wml573 A/G Ratio 1.8 Ratio 04/12/2016 Comp Metabolic Jhq286 Osmo 261 mOsmo 04/12/2016 Lipid Ord30 CHOL 265 mg/dL 04/12/2016 Lipid Ord30 HDL 42.0 mg/dl 04/12/2016 Lipid Ord30 TRIG 246 mg/dL 04/12/2016 Lipid Ord30 LDL 174 mg/dL 04/12/2016 Lipid Ord30 C/HDL 6.3 Ratio 04/12/2016 Tsh Ord6 hTSH II 2.49 uIU/mL 04/12/2016 Tsh Ord6 hTSH II 1.83 uIU/mL 06/12/2015 Comp Metabolic Joo384 NA 137 mEq/L 06/12/2015 Comp Metabolic Yqj659 K 4.4 mEq/L 06/12/2015 Comp Metabolic Ohz597 CL 103 mEq/L 06/12/2015 Comp Metabolic Yll486 CO2 27.0 mEq/L 06/12/2015 Comp Metabolic Uss450 ANION GAP 11 06/12/2015 Comp Metabolic Yri662 GLUCOSE 87 mg/dL 06/12/2015 Comp Metabolic Eal571 Creat 1.3 mg/dL 06/12/2015 Comp Metabolic Frq339 eGFR 43 ml/min/1.73m2 06/12/2015 Comp Metabolic Mpw809 BUN 32 mg/dL 06/12/2015 Comp Metabolic Fjf367 B/C Ratio 25.4 Ratio 06/12/2015 Comp Metabolic Akm938 CALCIUM 9.5 mg/dL 06/12/2015 Comp Metabolic Eew133 ALK PHOS 36 U/L 06/12/2015 Comp Metabolic Kfe828 AST(SGOT) 16 U/L 06/12/2015 Comp Metabolic Ndk426 ALT(SGPT) 17 U/L 06/12/2015 Comp Metabolic Qyn017 BILI T 1.0 mg/dL 06/12/2015 Comp Metabolic Ojy890 ALBUMIN 4.1 g/dL 06/12/2015 Comp Metabolic Nta791 TPRO 6.5 g/dL 06/12/2015 Comp Metabolic Ffz110 GLOB 2.5 g/dL 06/12/2015 Comp Metabolic Rej989 A/G Ratio 1.7 Ratio 06/12/2015 Comp Metabolic Qdp276 Osmo 280 mOsmo 06/12/2015 Lipid Ord30 CHOL 250 mg/dL 06/12/2015 Lipid Ord30 HDL 56.0 mg/dl 06/12/2015 Lipid Ord30 TRIG 144 mg/dL 06/12/2015 Lipid Ord30 LDL 165 mg/dL 06/12/2015 Lipid Ord30 C/HDL 4.5 Ratio 06/12/2015 Cbc With Differential Ord2 WBC 8.01 K/ul 06/12/2015 Cbc With Differential Ord2 RBC 3.96 M/ul 06/12/2015 Cbc With Differential Ord2 HGB 12.1 g/dl 06/12/2015 Cbc With Differential Ord2 HCT 36.6 % 06/12/2015 Cbc With Differential Ord2 Neut% 61.9 % 06/12/2015 Cbc With Differential Ord2 MCV 92.4 fl 06/12/2015 Cbc With Differential Ord2 Lymph% 24.5 % 06/12/2015 Cbc With Differential Ord2 MCH 30.6 pg 06/12/2015 Cbc With Differential Ord2 [place]% 11.0 % 06/12/2015 Cbc With Differential Ord2 MCHC 33.1 pg 06/12/2015 Cbc With Differential Ord2 Eos% 2.1 % 06/12/2015 Cbc With Differential Ord2 Baso% 0.5 % 06/12/2015 Cbc With Differential Ord2 PLT 191 K/ul 06/12/2015 Cbc With Differential Ord2 RDW 13.7 % 06/12/2015 Cbc With Differential Ord2 Neut ABS# 4.96 K/ul 06/12/2015 Cbc With Differential Ord2 Lymph ABS# 1.96 K/ul 06/12/2015 Cbc With Differential Ord2 [place] ABS# 0.9 K/ul 06/12/2015 Cbc With Differential Ord2 Eos ABS# 0.2 K/ul 06/12/2015 Cbc With Differential Ord2 Baso ABS# 0.0 K/ul 06/12/2015 Cbc With Differential Ord2 New Analyzer Notice Please note new ref ranges starting 03-11-2015 due to implemntation of new five part differential hematolgy analyzer. 06/12/2015 Cbc With Differential Ord2 WBC 9.13 K/ul 03/12/2015 Cbc With Differential Ord2 RBC 4.02 M/ul 03/12/2015 Cbc With Differential Ord2 HGB 12.2 g/dl 03/12/2015 Cbc With Differential Ord2 Neut% 66.2 % 03/12/2015 Cbc With Differential Ord2 HCT 38.0 % 03/12/2015 Cbc With Differential Ord2 MCV 94.5 fl 03/12/2015 Cbc With Differential Ord2 Lymph% 21.9 % 03/12/2015 Cbc With Differential Ord2 MCH 30.3 pg 03/12/2015 Cbc With Differential Ord2 [place]% 10.7 % 03/12/2015 Cbc With Differential Ord2 MCHC 32.1 pg 03/12/2015 Cbc With Differential Ord2 Eos% 1.0 % 03/12/2015 Cbc With Differential Ord2 PLT 244 K/ul 03/12/2015 Cbc With Differential Ord2 Baso% 0.2 % 03/12/2015 Cbc With Differential Ord2 RDW 14.2 % 03/12/2015 Cbc With Differential Ord2 Neut ABS# 6.04 K/ul 03/12/2015 Cbc With Differential Ord2 Lymph ABS# 2.00 K/ul 03/12/2015 Cbc With Differential Ord2 [place] ABS# 1.0 K/ul 03/12/2015 Cbc With Differential Ord2 Eos ABS# 0.1 K/ul 03/12/2015 Cbc With Differential Ord2 Baso ABS# 0.0 K/ul 03/12/2015 Cbc With Differential Ord2 New Analyzer Notice Please note new ref ranges starting 03-11-2015 due to implemntation of new five part differential hematolgy analyzer. 03/12/2015 Comp Metabolic Ery562 NA 139 mEq/L 03/12/2015 Comp Metabolic Kdc650 K 4.2 mEq/L 03/12/2015 Comp Metabolic Ikh796 CL 101 mEq/L 03/12/2015 Comp Metabolic Pxt939 CO2 28.0 mEq/L 03/12/2015 Comp Metabolic Nxk198 ANION GAP 14 03/12/2015 Comp Metabolic Txk839 GLUCOSE 78 mg/dL 03/12/2015 Comp Metabolic Emm961 Creat 1.1 mg/dL 03/12/2015 Comp Metabolic Fkd838 eGFR 51 ml/min/1.73m2 03/12/2015 Comp Metabolic Znr805 BUN 17 mg/dL 03/12/2015 Comp Metabolic Osv808 B/C Ratio 15.6 Ratio 03/12/2015 Comp Metabolic Pgn996 CALCIUM 9.4 mg/dL 03/12/2015 Comp Metabolic Sdt516 ALK PHOS 46 U/L 03/12/2015 Comp Metabolic Iwg423 AST(SGOT) 16 U/L 03/12/2015 Comp Metabolic Qgv035 ALT(SGPT) 12 U/L 03/12/2015 Comp Metabolic Dwm876 BILI T 0.8 mg/dL 03/12/2015 Comp Metabolic Cmp825 ALBUMIN 4.1 g/dL 03/12/2015 Comp Metabolic Mmm388 TPRO 6.6 g/dL 03/12/2015 Comp Metabolic Vhd378 GLOB 2.6 g/dL 03/12/2015 Comp Metabolic Yni027 A/G Ratio 1.6 Ratio 03/12/2015 Comp Metabolic Jwq780 Osmo 278 mOsmo 03/12/2015 Lipid Ord30 CHOL 289 mg/dL 03/12/2015 Lipid Ord30 HDL 52.0 mg/dl 03/12/2015 Lipid Ord30 TRIG 154 mg/dL 03/12/2015 Lipid Ord30 LDL 206 mg/dL 03/12/2015 Lipid Ord30 C/HDL 5.6 Ratio 03/12/2015 Cbc With Differential Ord2 WBC 6.7 K/uL 01/12/2015 Cbc With Differential Ord2 LYM 1.8 K/uL 01/12/2015 Cbc With Differential Ord2 LYM% 27.1 % 01/12/2015 Cbc With Differential Ord2 NEUT/GRAN 4.3 K/uL 01/12/2015 Cbc With Differential Ord2 NEUT/GRAN % 64.4 % 01/12/2015 Cbc With Differential Ord2 MID 0.6 K/uL 01/12/2015 Cbc With Differential Ord2 MID% 8.5 % 01/12/2015 Cbc With Differential Ord2 RBC 3.72 M/uL 01/12/2015 Cbc With Differential Ord2 HGB 11.1 g/dL 01/12/2015 Cbc With Differential Ord2 HCT 34.1 % 01/12/2015 Cbc With Differential Ord2 MCV 92 fL 01/12/2015 Cbc With Differential Ord2 MCH 30 pg 01/12/2015 Cbc With Differential Ord2 MCHC 33 g/dL 01/12/2015 Cbc With Differential Ord2 PLT 228 K/uL 01/12/2015 Cbc With Differential Ord2 RDW 14.2 % 01/12/2015 Cbc With Differential Ord2 WBC 11.8 K/uL 12/01/2014 Cbc With Differential Ord2 LYM 2.2 K/uL 12/01/2014 Cbc With Differential Ord2 LYM% 18.6 % 12/01/2014 Cbc With Differential Ord2 NEUT/GRAN 8.7 K/uL 12/01/2014 Cbc With Differential Ord2 NEUT/GRAN % 73.8 % 12/01/2014 Cbc With Differential Ord2 MID 0.9 K/uL 12/01/2014 Cbc With Differential Ord2 MID% 7.6 % 12/01/2014 Cbc With Differential Ord2 RBC 3.89 M/uL 12/01/2014 Cbc With Differential Ord2 HGB 11.1 g/dL 12/01/2014 Cbc With Differential Ord2 HCT 36.0 % 12/01/2014 Cbc With Differential Ord2 MCV 93 fL 12/01/2014 Cbc With Differential Ord2 MCH 29 pg 12/01/2014 Cbc With Differential Ord2 MCHC 31 g/dL 12/01/2014 Cbc With Differential Ord2 PLT 202 K/uL 12/01/2014 Cbc With Differential Ord2 RDW 17.7 % 12/01/2014 Tsh Ord6 hTSH II 3.15 uIU/mL 12/01/2014 Comp Metabolic Ydx580 NA 132 mEq/L 12/01/2014 Comp Metabolic Pwv380 K 4.4 mEq/L 12/01/2014 Comp Metabolic Ksa431 CL 99 mEq/L 12/01/2014 Comp Metabolic Tci802 CO2 27.0 mEq/L 12/01/2014 Comp Metabolic Tem690 ANION GAP 10 12/01/2014 Comp Metabolic Vph080 GLUCOSE 86 mg/dL 12/01/2014 Comp Metabolic Vho112 Creat 1.2 mg/dL 12/01/2014 Comp Metabolic Csn317 eGFR 46 ml/min/1.73m2 12/01/2014 Comp Metabolic Moo207 BUN 32 mg/dL 12/01/2014 Comp Metabolic Kxu699 B/C Ratio 27.1 Ratio 12/01/2014 Comp Metabolic Geb565 CALCIUM 9.4 mg/dL 12/01/2014 Comp Metabolic Ikk797 ALK PHOS 35 U/L 12/01/2014 Comp Metabolic Djp305 AST(SGOT) 14 U/L 12/01/2014 Comp Metabolic Iox199 ALT(SGPT) 13 U/L 12/01/2014 Comp Metabolic Zxx265 BILI T 0.8 mg/dL 12/01/2014 Comp Metabolic Iid399 ALBUMIN 4.0 g/dL 12/01/2014 Comp Metabolic Wjj392 TPRO 6.8 g/dL 12/01/2014 Comp Metabolic Tjx237 GLOB 2.8 g/dL 12/01/2014 Comp Metabolic Fws325 A/G Ratio 1.4 Ratio 12/01/2014 Comp Metabolic Jec942 Osmo 271 mOsmo 12/01/2014 Review of Systems System Result Effective Dates Constitutional recent illness 08/02/2016 Constitutional No chills 08/02/2016 Constitutional No diaphoresis 08/02/2016 Constitutional fatigue 08/02/2016 Constitutional No fever 08/02/2016 Eyes No eye erythema 08/02/2016 Ears/Nose/Throat/Neck nasal allergies 07/2016 Ears/Nose/Throat/Neck nasal discharge 07/2016 Ears/Nose/Throat/Neck otalgia 08/02/2016 Ears/Nose/Throat/Neck sinus congestion Ears/Nose/Throat/Neck postnasal drip 07/2016 Cardiovascular No chest pain/pressure 07/2016 Respiratory No dyspnea 08/02/2016 Gastrointestinal No abdominal pain 2016 Neurologic No alteration of consciousness 08/02/2016 Neurologic No mental status change 2016 Constitutional recent illness 07/21/2016 Constitutional No anorexia 07/21/2016 Constitutional No night sweats 2016 Constitutional No chills 07/21/2016 Constitutional No diaphoresis 07/21/2016 Constitutional fatigue 07/21/2016 Constitutional No fever 07/21/2016 Constitutional No insomnia 07/21/2016 Constitutional No malaise 07/21/2016 Constitutional No weight loss 07/21/2016 Constitutional No weight gain 07/21/2016 Eyes No blindness 07/21/2016 Ears/Nose/Throat/Neck nasal allergies Ears/Nose/Throat/Neck nasal discharge Ears/Nose/Throat/Neck postnasal drip Ears/Nose/Throat/Neck sinus congestion Cardiovascular No chest pain/pressure Respiratory No cough 07/21/2016 Neurologic No alteration of consciousness 07/21/2016 Neurologic No mental status change 2016 Ears/Nose/Throat/Neck otalgia 07/21/2016 Gastrointestinal No abdominal pain 2016 Genitourinary/Nephrology No dysuria 07/21 Musculoskeletal No joint complaint 2016 Dermatologic No rash 07/21/2016 Constitutional recent illness 07/01/2016 Constitutional No chills 07/01/2016 Constitutional No diaphoresis 07/01/2016 Constitutional No fever 07/01/2016 Eyes No eye erythema 07/01/2016 Ears/Nose/Throat/Neck nasal allergies 06/2016 Cardiovascular No chest pain/pressure 06/2016 Respiratory No cough 07/01/2016 Respiratory No dyspnea 07/01/2016 Gastrointestinal abdominal pain 2016 Genitourinary/Nephrology dysuria 2016 Neurologic No alteration of consciousness 07/01/2016 Neurologic No mental status change 2016 Constitutional No chills 05/16/2016 Constitutional No fatigue 05/16/2016 Constitutional No fever 05/16/2016 Constitutional No insomnia 05/16/2016 Constitutional No malaise 05/16/2016 Eyes No eye discharge 05/16/2016 Eyes No eye erythema 05/16/2016 Eyes No vision change 05/16/2016 Ears/Nose/Throat/Neck dental pain 2016 Ears/Nose/Throat/Neck No headache 2016 Ears/Nose/Throat/Neck No nasal discharge 05/16/2016 Ears/Nose/Throat/Neck postnasal drip Cardiovascular No chest pain/pressure Cardiovascular No dyspnea 05/16/2016 Cardiovascular edema 05/16/2016 Cardiovascular No near-syncope/dizziness 05/16/2016 Respiratory No chest congestion 2016 Respiratory No chest tightness 2016 Respiratory No cigarette smoking 2016 Respiratory No cough 05/16/2016 Gastrointestinal No abdominal pain 2016 Gastrointestinal No constipation 2016 Gastrointestinal No diarrhea 05/16/2016 Gastrointestinal No nausea 05/16/2016 Gastrointestinal No vomiting 05/16/2016 Musculoskeletal No stiffness 05/16/2016 Musculoskeletal No arthralgia(s) 2016 Dermatologic No rash 05/16/2016 Dermatologic No scar 05/16/2016 Neurologic No alteration of consciousness 05/16/2016 Psychiatric No anxiety 05/16/2016 Psychiatric No depression 05/16/2016 Constitutional No recent illness 2016 Constitutional No fever 04/06/2016 Eyes No eye erythema 04/06/2016 Ears/Nose/Throat/Neck No nasal allergies 04/06/2016 Ears/Nose/Throat/Neck No nasal discharge 04/06/2016 Cardiovascular No chest pain/pressure 09/2016 Cardiovascular No dyspnea 04/06/2016 Respiratory No cough 04/06/2016 Respiratory No dyspnea 04/06/2016 Dermatologic No erythema 04/06/2016 Dermatologic laceration 04/06/2016 Neurologic No alteration of consciousness 04/06/2016 Neurologic No mental status change 2016 Ears/Nose/Throat/Neck dental pain 2016 Ears/Nose/Throat/Neck postnasal drip 02/2016 Constitutional No chills 03/30/2016 Constitutional No fatigue 03/30/2016 Constitutional No fever 03/30/2016 Constitutional No insomnia 03/30/2016 Constitutional No malaise 03/30/2016 Eyes No eye discharge 03/30/2016 Eyes No eye erythema 03/30/2016 Eyes No vision change 03/30/2016 Ears/Nose/Throat/Neck No headache 2016 Ears/Nose/Throat/Neck No nasal discharge 03/30/2016 Cardiovascular No chest pain/pressure 02/2016 Cardiovascular No dyspnea 03/30/2016 Cardiovascular edema 03/30/2016 Cardiovascular No near-syncope/dizziness 03/30/2016 Respiratory No chest congestion 2016 Respiratory No chest tightness 2016 Respiratory No cigarette smoking 2016 Respiratory No cough 03/30/2016 Gastrointestinal No abdominal pain 2016 Gastrointestinal No constipation 2016 Gastrointestinal No diarrhea 03/30/2016 Gastrointestinal No nausea 03/30/2016 Gastrointestinal No vomiting 03/30/2016 Musculoskeletal No stiffness 03/30/2016 Musculoskeletal No arthralgia(s) 2016 Dermatologic No rash 03/30/2016 Dermatologic No scar 03/30/2016 Neurologic No alteration of consciousness 03/30/2016 Psychiatric No anxiety 03/30/2016 Psychiatric No depression 03/30/2016 Constitutional No diaphoresis 02/01/2016 Constitutional No chills 02/01/2016 Constitutional No fever 02/01/2016 Eyes No eye erythema 02/01/2016 Ears/Nose/Throat/Neck nasal allergies 06/2015 Cardiovascular No chest pain/pressure 06/2015 Cardiovascular No dyspnea 02/01/2016 Respiratory No cough 02/01/2016 Respiratory No chest congestion 2015 Gastrointestinal No abdominal pain 2015 Gastrointestinal No constipation 2015 Gastrointestinal No diarrhea 02/01/2016 Gastrointestinal No vomiting 02/01/2016 Gastrointestinal No nausea 02/01/2016 Musculoskeletal No joint complaint 2015 Dermatologic No rash 02/01/2016 Neurologic No alteration of consciousness 02/01/2016 Neurologic No mental status change 2015 Constitutional recent illness 01/25/2016 Constitutional No chills 01/25/2016 Constitutional No diaphoresis 01/25/2016 Eyes No blindness 01/25/2016 Ears/Nose/Throat/Neck nasal allergies Ears/Nose/Throat/Neck postnasal drip Ears/Nose/Throat/Neck sinus congestion Cardiovascular No chest pain/pressure Respiratory cough 01/25/2016 Neurologic No mental status change 2015 Ears/Nose/Throat/Neck dental pain 2015 Constitutional No chills 12/24/2015 Constitutional No fatigue 12/24/2015 Constitutional No fever 12/24/2015 Constitutional No insomnia 12/24/2015 Constitutional No malaise 12/24/2015 Eyes No eye discharge 12/24/2015 Eyes No eye erythema 12/24/2015 Eyes No vision change 12/24/2015 Ears/Nose/Throat/Neck No headache 2015 Ears/Nose/Throat/Neck No nasal discharge 12/24/2015 Cardiovascular No chest pain/pressure Cardiovascular No dyspnea 12/24/2015 Cardiovascular edema 12/24/2015 Cardiovascular No near-syncope/dizziness 12/24/2015 Respiratory No chest congestion 2015 Respiratory No chest tightness 2015 Respiratory No cigarette smoking 2015 Respiratory No cough 12/24/2015 Gastrointestinal No abdominal pain 2015 Gastrointestinal No constipation 2015 Gastrointestinal No diarrhea 12/24/2015 Gastrointestinal No nausea 12/24/2015 Gastrointestinal No vomiting 12/24/2015 Musculoskeletal No stiffness 12/24/2015 Musculoskeletal No arthralgia(s) 2015 Dermatologic No rash 12/24/2015 Dermatologic No scar 12/24/2015 Neurologic No alteration of consciousness 12/24/2015 Psychiatric No anxiety 12/24/2015 Psychiatric No depression 12/24/2015 Constitutional recent illness 12/18/2015 Constitutional No chills 12/18/2015 Constitutional No diaphoresis 12/18/2015 Eyes No eye erythema 12/18/2015 Ears/Nose/Throat/Neck nasal allergies Ears/Nose/Throat/Neck nasal discharge Ears/Nose/Throat/Neck sinus congestion Ears/Nose/Throat/Neck postnasal drip Cardiovascular No chest pain/pressure Respiratory cough 12/18/2015 Neurologic No alteration of consciousness 12/18/2015 Neurologic No mental status change 2015 Constitutional No chills 11/26/2015 Constitutional No fatigue 11/26/2015 Constitutional No fever 11/26/2015 Constitutional No insomnia 11/26/2015 Constitutional No malaise 11/26/2015 Eyes No eye discharge 11/26/2015 Eyes No eye erythema 11/26/2015 Eyes No vision change 11/26/2015 Ears/Nose/Throat/Neck No headache 2015 Ears/Nose/Throat/Neck No nasal discharge 11/26/2015 Cardiovascular No chest pain/pressure Cardiovascular No dyspnea 11/26/2015 Cardiovascular edema 11/26/2015 Cardiovascular No near-syncope/dizziness 11/26/2015 Respiratory No chest congestion 2015 Respiratory No chest tightness 2015 Respiratory No cigarette smoking 2015 Respiratory No cough 11/26/2015 Gastrointestinal No abdominal pain 2015 Gastrointestinal No constipation 2015 Gastrointestinal No diarrhea 11/26/2015 Gastrointestinal No nausea 11/26/2015 Gastrointestinal No vomiting 11/26/2015 Musculoskeletal No stiffness 11/26/2015 Musculoskeletal No arthralgia(s) 2015 Musculoskeletal joint complaint 2015 Dermatologic No rash 11/26/2015 Dermatologic No scar 11/26/2015 Neurologic No alteration of consciousness 11/26/2015 Psychiatric No anxiety 11/26/2015 Psychiatric No depression 11/26/2015 Constitutional No chills 10/21/2015 Constitutional No fever 10/21/2015 Eyes No eye discharge 10/21/2015 Eyes No eye erythema 10/21/2015 Cardiovascular No chest pain/pressure Cardiovascular No dyspnea 10/21/2015 Dermatologic No scar 10/21/2015 Neurologic No alteration of consciousness 10/21/2015 Constitutional No diaphoresis 10/21/2015 Ears/Nose/Throat/Neck facial pain 2015 Respiratory No cough 10/21/2015 Gastrointestinal No nausea 10/21/2015 Dermatologic sores 10/21/2015 Neurologic No mental status change 2015 Constitutional No chills 06/15/2015 Constitutional No fatigue 06/15/2015 Constitutional No fever 06/15/2015 Constitutional No insomnia 06/15/2015 Constitutional No malaise 06/15/2015 Eyes No eye discharge 06/15/2015 Eyes No eye erythema 06/15/2015 Eyes No vision change 06/15/2015 Ears/Nose/Throat/Neck No headache 2015 Ears/Nose/Throat/Neck No nasal discharge 06/15/2015 Ears/Nose/Throat/Neck oral pain 2015 Ears/Nose/Throat/Neck sore throat 2015 Cardiovascular No chest pain/pressure Cardiovascular No dyspnea 06/15/2015 Cardiovascular edema 06/15/2015 Cardiovascular No near-syncope/dizziness 06/15/2015 Respiratory No chest congestion 2015 Respiratory No chest tightness 2015 Respiratory No cigarette smoking 2015 Respiratory No cough 06/15/2015 Gastrointestinal No abdominal pain 2015 Gastrointestinal No constipation 2015 Gastrointestinal No diarrhea 06/15/2015 Gastrointestinal No nausea 06/15/2015 Gastrointestinal No vomiting 06/15/2015 Musculoskeletal No stiffness 06/15/2015 Musculoskeletal No arthralgia(s) 2015 Musculoskeletal joint complaint 2015 Dermatologic No rash 06/15/2015 Dermatologic No scar 06/15/2015 Neurologic No alteration of consciousness 06/15/2015 Psychiatric No anxiety 06/15/2015 Psychiatric No depression 06/15/2015 Constitutional No chills 05/19/2015 Constitutional No fatigue 05/19/2015 Constitutional No fever 05/19/2015 Constitutional No insomnia 05/19/2015 Constitutional No malaise 05/19/2015 Eyes No eye discharge 05/19/2015 Eyes No eye erythema 05/19/2015 Eyes No vision change 05/19/2015 Ears/Nose/Throat/Neck No headache 2015 Ears/Nose/Throat/Neck No nasal discharge 05/19/2015 Ears/Nose/Throat/Neck sore throat 2015 Ears/Nose/Throat/Neck oral pain 2015 Cardiovascular No chest pain/pressure Cardiovascular No dyspnea 05/19/2015 Cardiovascular edema 05/19/2015 Cardiovascular No near-syncope/dizziness 05/19/2015 Respiratory No chest congestion 2015 Respiratory No chest tightness 2015 Respiratory No cigarette smoking 2015 Respiratory No cough 05/19/2015 Gastrointestinal No abdominal pain 2015 Gastrointestinal No constipation 2015 Gastrointestinal No diarrhea 05/19/2015 Gastrointestinal No nausea 05/19/2015 Gastrointestinal No vomiting 05/19/2015 Musculoskeletal No stiffness 05/19/2015 Musculoskeletal No arthralgia(s) 2015 Dermatologic No rash 05/19/2015 Dermatologic No scar 05/19/2015 Neurologic No alteration of consciousness 05/19/2015 Psychiatric No anxiety 05/19/2015 Psychiatric No depression 05/19/2015 Musculoskeletal No joint complaint 2015 Constitutional No chills 04/24/2015 Constitutional No fatigue 04/24/2015 Constitutional No fever 04/24/2015 Constitutional No insomnia 04/24/2015 Constitutional No malaise 04/24/2015 Eyes No eye discharge 04/24/2015 Eyes No eye erythema 04/24/2015 Eyes No vision change 04/24/2015 Ears/Nose/Throat/Neck headache 2015 Ears/Nose/Throat/Neck nasal discharge Cardiovascular No chest pain/pressure Cardiovascular No dyspnea 04/24/2015 Respiratory chest congestion 04/24/2015 Respiratory chest tightness 04/24/2015 Respiratory cough 04/24/2015 Gastrointestinal No abdominal pain 2015 Gastrointestinal No constipation 2015 Gastrointestinal No diarrhea 04/24/2015 Gastrointestinal No nausea 04/24/2015 Gastrointestinal No vomiting 04/24/2015 Dermatologic No rash 04/24/2015 Dermatologic No scar 04/24/2015 Psychiatric No anxiety 04/24/2015 Psychiatric No depression 04/24/2015 Constitutional recent illness 04/24/2015 Ears/Nose/Throat/Neck nasal allergies Ears/Nose/Throat/Neck sinus congestion Ears/Nose/Throat/Neck postnasal drip Neurologic No mental status change 2015 Neurologic No alteration of consciousness 04/24/2015 Constitutional No chills 03/12/2015 Constitutional No fatigue 03/12/2015 Constitutional No fever 03/12/2015 Constitutional No insomnia 03/12/2015 Constitutional No malaise 03/12/2015 Eyes No eye discharge 03/12/2015 Eyes No eye erythema 03/12/2015 Eyes No vision change 03/12/2015 Ears/Nose/Throat/Neck No headache 2015 Ears/Nose/Throat/Neck No nasal discharge 03/12/2015 Ears/Nose/Throat/Neck oral pain 2015 Ears/Nose/Throat/Neck sore throat 2015 Cardiovascular No chest pain/pressure Cardiovascular No dyspnea 03/12/2015 Cardiovascular edema 03/12/2015 Cardiovascular No near-syncope/dizziness 03/12/2015 Respiratory No chest congestion 2015 Respiratory No chest tightness 2015 Respiratory No cigarette smoking 2015 Respiratory No cough 03/12/2015 Gastrointestinal No abdominal pain 2015 Gastrointestinal No constipation 2015 Gastrointestinal No diarrhea 03/12/2015 Gastrointestinal No nausea 03/12/2015 Gastrointestinal No vomiting 03/12/2015 Musculoskeletal No stiffness 03/12/2015 Musculoskeletal No arthralgia(s) 2015 Musculoskeletal joint complaint 2015 Dermatologic No rash 03/12/2015 Dermatologic No scar 03/12/2015 Neurologic No alteration of consciousness 03/12/2015 Psychiatric No anxiety 03/12/2015 Psychiatric No depression 03/12/2015 Constitutional No fatigue 01/12/2015 Constitutional No fever 01/12/2015 Constitutional No insomnia 01/12/2015 Constitutional No malaise 01/12/2015 Gastrointestinal No abdominal pain 2014 Gastrointestinal No constipation 2014 Gastrointestinal No diarrhea 01/12/2015 Psychiatric No anxiety 01/12/2015 Psychiatric No depression 01/12/2015 Eyes No eye discharge 01/12/2015 Eyes No eye erythema 01/12/2015 Ears/Nose/Throat/Neck No headache 2014 Ears/Nose/Throat/Neck oral pain 2014 Cardiovascular No chest pain/pressure Cardiovascular No dyspnea 01/12/2015 Cardiovascular edema 01/12/2015 Respiratory No cough 01/12/2015 Respiratory No chest congestion 2014 Musculoskeletal joint complaint 2014 Neurologic No alteration of consciousness 01/12/2015 Constitutional No chills 01/12/2015 Eyes No vision change 01/12/2015 Ears/Nose/Throat/Neck No nasal discharge 01/12/2015 Ears/Nose/Throat/Neck sore throat 2014 Cardiovascular No near-syncope/dizziness 01/12/2015 Respiratory No chest tightness 2014 Respiratory No cigarette smoking 2014 Musculoskeletal No stiffness 01/12/2015 Musculoskeletal No arthralgia(s) 2014 Dermatologic No rash 01/12/2015 Dermatologic No scar 01/12/2015 Gastrointestinal No nausea 01/12/2015 Gastrointestinal No vomiting 01/12/2015 Constitutional No recent illness 2014 Constitutional No chills 12/11/2014 Constitutional No fatigue 12/11/2014 Constitutional No fever 12/11/2014 Constitutional No insomnia 12/11/2014 Constitutional No malaise 12/11/2014 Psychiatric No anxiety 12/11/2014 Psychiatric No depression 12/11/2014 Gastrointestinal No hemorrhoids 2014 Gastrointestinal No abdominal pain 2014 Gastrointestinal No constipation 2014 Gastrointestinal No diarrhea 12/11/2014 Gastrointestinal No gastroesophageal reflux 12/11/2014 Gastrointestinal No melena 12/11/2014 Gastrointestinal No nausea 12/11/2014 Gastrointestinal No vomiting 12/11/2014 Constitutional recent illness 12/01/2014 Constitutional No anorexia 12/01/2014 Constitutional No chills 12/01/2014 Constitutional fatigue 12/01/2014 Constitutional No fever 12/01/2014 Constitutional No malaise 12/01/2014 Eyes No blindness 12/01/2014 Eyes No vision change 12/01/2014 Ears/Nose/Throat/Neck No facial pain 06/2014 Ears/Nose/Throat/Neck No headache 2014 Ears/Nose/Throat/Neck No hoarseness 12/01 Ears/Nose/Throat/Neck No nasal lesion 06/2014 Ears/Nose/Throat/Neck No nasal discharge 12/01/2014 Ears/Nose/Throat/Neck sore throat 2014 Ears/Nose/Throat/Neck oral lesion 2014 Cardiovascular No chest pain/pressure 06/2014 Cardiovascular No dyspnea 12/01/2014 Cardiovascular No edema 12/01/2014 Cardiovascular No exercise intolerance Cardiovascular No fatigue 12/01/2014 Cardiovascular No near-syncope/dizziness 12/01/2014 Respiratory No chest tightness 2014 Respiratory No cigarette smoking 2014 Respiratory No cough 12/01/2014 Respiratory No dyspnea 12/01/2014 Respiratory No pedal edema 12/01/2014 Respiratory No snoring 12/01/2014 Respiratory No wheezing 12/01/2014 Gastrointestinal No abdominal pain 2014 Gastrointestinal No anorexia 12/01/2014 Gastrointestinal No constipation 2014 Gastrointestinal No diarrhea 12/01/2014 Genitourinary/Nephrology No dysuria 12/01 Genitourinary/Nephrology No nocturia 06/2014 Genitourinary/Nephrology No urinary incontinence 12/01/2014 Musculoskeletal No stiffness 12/01/2014 Musculoskeletal No arthralgia(s) 2014 Dermatologic No rash 12/01/2014 Dermatologic No scar 12/01/2014 Neurologic No dizziness 12/01/2014 Neurologic No headache 12/01/2014 Neurologic No neck pain 12/01/2014 Neurologic No syncope 12/01/2014 Constitutional No recent illness 2014 Constitutional No chills 08/14/2014 Constitutional No fatigue 08/14/2014 Constitutional No fever 08/14/2014 Constitutional No insomnia 08/14/2014 Constitutional No malaise 08/14/2014 Eyes No blindness 08/14/2014 Eyes No vision change 08/14/2014 Ears/Nose/Throat/Neck No dental pain Ears/Nose/Throat/Neck No dizziness 2014 Ears/Nose/Throat/Neck No dysphagia 2014 Ears/Nose/Throat/Neck headache 2014 Ears/Nose/Throat/Neck No hearing loss Ears/Nose/Throat/Neck No nasal allergies 08/14/2014 Ears/Nose/Throat/Neck No sore throat Ears/Nose/Throat/Neck No postnasal drip 08/14/2014 Ears/Nose/Throat/Neck No sinus congestion 08/14/2014 Cardiovascular No chest pain/pressure Cardiovascular No dyspnea 08/14/2014 Cardiovascular No edema 08/14/2014 Cardiovascular No exercise intolerance Cardiovascular No fatigue 08/14/2014 Cardiovascular No near-syncope/dizziness 08/14/2014 Respiratory No chest tightness 2014 Respiratory No cough 08/14/2014 Respiratory No dyspnea 08/14/2014 Respiratory No pedal edema 08/14/2014 Gastrointestinal No abdominal pain 2014 Gastrointestinal No constipation 2014 Gastrointestinal No diarrhea 08/14/2014 Gastrointestinal No gastroesophageal reflux 08/14/2014 Gastrointestinal No nausea 08/14/2014 Gastrointestinal No vomiting 08/14/2014 Genitourinary/Nephrology No dysuria 08/14 Genitourinary/Nephrology No nocturia Genitourinary/Nephrology No urinary incontinence 08/14/2014 Musculoskeletal No stiffness 08/14/2014 Musculoskeletal No swelling 08/14/2014 Musculoskeletal No muscle weakness 2014 Musculoskeletal No myalgias 08/14/2014 Dermatologic No rash 08/14/2014 Dermatologic No sores 08/14/2014 Dermatologic No scar 08/14/2014 Neurologic No dizziness 08/14/2014 Neurologic No headache 08/14/2014 Neurologic No neck pain 08/14/2014 Neurologic No syncope 08/14/2014 Psychiatric No anxiety 08/14/2014 Psychiatric No depression 08/14/2014 Ears/Nose/Throat/Neck facial pain 2014 Physical Exam Exam Name System Name Item Name Status Result Effective Dates Notes Full Exam - ENT Constitutional general appearance Overall: well nourished 08/02/2016 None Full Exam - ENT Constitutional general appearance Overall: well developed 08/02/2016 None Full Exam - ENT Constitutional general appearance Overall: in no acute distress 08/02/2016 None Full Exam - ENT Ears/Nose/Throat lips/ teeth/gingiva Overall: benign lips 08/02/2016 None Full Exam - ENT Ears/Nose/Throat oropharynx Overall: oral mucosa clear 08/02/2016 None Full Exam - ENT Ears/Nose/Throat oropharynx Oral mucosa: dry 08/02/2016 None Full Exam - ENT Respiratory inspection Overall: no retractions 08/02/2016 None Full Exam - ENT Respiratory inspection Overall: normal rate 07/2016 None Full Exam - ENT Respiratory auscultation Overall: breath sounds clear bilaterally 08/02/2016 None Full Exam - ENT Cardiovascular auscultation of heart Overall: regular rate 08/02/2016 None Full Exam - ENT Cardiovascular auscultation of heart Overall: normal heart sounds 08/02/2016 None Full Exam - ENT Face and Head palpation Left maxillary sinus: tender 08/02/2016 None Full Exam - ENT Face and Head palpation Right maxillary sinus: tender 08/02/2016 None Full Exam - ENT Lymphatic palpation of lymph nodes Overall: anterior cervical chain benign 08/02/2016 None Full Exam - ENT Lymphatic palpation of lymph nodes Overall: posterior cervical chain benign 08/02/2016 None Full Exam - ENT Neurologic mood and affect Overall: normal mood 08/02/2016 None Full Exam - ENT Neurologic mood and affect Overall: normal affect 08/02/2016 None Full Exam - ENT Neurologic orientation Overall: oriented to person, place and time 08/02/2016 None Full Exam - ENT Ears/Nose/Throat otoscopic exam Overall: external auditory canals normal 08/02/2016 None Full Exam - ENT Ears/Nose/Throat otoscopic exam Left tympanic membrane: erythematous 08/02/2016 mild Full Exam - ENT Ears/Nose/Throat otoscopic exam Right tympanic membrane: erythematous 08/02/2016 mild Full Exam - ENT Constitutional general appearance Overall: well nourished 07/21/2016 None Full Exam - ENT Constitutional general appearance Overall: well developed 07/21/2016 None Full Exam - ENT Constitutional general appearance Overall: in no acute distress 07/21/2016 None Full Exam - ENT Ears/Nose/Throat oropharynx Overall: oral mucosa clear 07/21/2016 None Full Exam - ENT Ears/Nose/Throat oropharynx Posterior Pharynx: clear post nasal drainage 07/21/2016 None Full Exam - ENT Face and Head palpation Left maxillary sinus: tender 07/21/2016 None Full Exam - ENT Face and Head palpation Right maxillary sinus: tender 07/21/2016 None Full Exam - ENT Respiratory inspection Overall: no retractions 07/21/2016 None Full Exam - ENT Respiratory inspection Overall: normal rate None Full Exam - ENT Respiratory auscultation Overall: breath sounds clear bilaterally 07/21/2016 None Full Exam - ENT Cardiovascular auscultation of heart Overall: regular rate 07/21/2016 None Full Exam - ENT Cardiovascular auscultation of heart Overall: normal heart sounds 07/21/2016 None Full Exam - ENT Lymphatic palpation of lymph nodes Overall: anterior cervical chain benign 07/21/2016 None Full Exam - ENT Lymphatic palpation of lymph nodes Overall: posterior cervical chain benign 07/21/2016 None Full Exam - ENT Neurologic mood and affect Overall: normal mood 07/21/2016 None Full Exam - ENT Neurologic mood and affect Overall: normal affect 07/21/2016 None Full Exam - ENT Neurologic orientation Overall: oriented to person, place and time 07/21/2016 None Full Exam - ENT Ears/Nose/Throat otoscopic exam Left tympanic membrane: not visualized 07/21/2016 None Full Exam - ENT Ears/Nose/Throat otoscopic exam Right tympanic membrane: not visualized 07/21/2016 None Full Exam - ENT Ears/Nose/Throat otoscopic exam Left external auditory canal: partial cerumen occlusion 07/21/2016 None Full Exam - ENT Ears/Nose/Throat otoscopic exam Right external auditory canal: complete cerumen impaction 07/21/2016 None Full Exam - General 1994 Constitutional general appearance Overall: well developed 07/01/2016 None Full Exam - General 1994 Constitutional general appearance Overall: in no acute distress 07/01/2016 None Full Exam - General 1994 Constitutional general appearance Overall: well nourished 07/01/2016 None Full Exam - General 1994 Eyes conjunctiva /eyelids Overall: conjunctiva clear 07/01/2016 None Full Exam - General 1994 Eyes conjunctiva /eyelids Overall: eyelids normal 07/01/2016 None Full Exam - General 1994 Respiratory auscultation Overall: breath sounds clear bilaterally 07/01/2016 None Full Exam - General 1994 Respiratory respiratory effort/rhythm Overall: no retractions 07/01/2016 None Full Exam - General 1994 Respiratory respiratory effort/rhythm Overall: normal rate 07/01/2016 None Full Exam - General 1994 Cardiovascular auscultation of heart Overall: regular rate 07/01/2016 None Full Exam - General 1994 Cardiovascular auscultation of heart Overall: normal heart sounds 07/01/2016 None Full Exam - General 1994 Cardiovascular extremities Edema present: pitting 07/01/2016 None Full Exam - General 1994 Cardiovascular extremities Edema present: severity 1+ - 4 +: 1-2+ 07/01/2016 None Full Exam - General 1994 Cardiovascular extremities Edema present: bilateral 07/01/2016 None Full Exam - General 1994 Cardiovascular extremities Edema present: to leg 07/01/2016 None Full Exam - General 1994 Abdomen abdominal exam Suprapubic: tender to palpation 07/01/2016 None Full Exam - General 1994 Abdomen abdominal exam Suprapubic: dull pain 07/01/2016 None Full Exam - General 1994 Abdomen abdominal exam Suprapubic: no guarding 07/01/2016 None Full Exam - General 1994 Abdomen abdominal exam Suprapubic: no rebound tenderness 07/01/2016 None Full Exam - General 1994 Abdomen abdominal exam Suprapubic: soft 07/01/2016 None Full Exam - General 1994 Neurologic cranial nerves Overall: crainial nerves 2 - 12 grossly intact 07/01/2016 None Full Exam - General 1994 Psychiatric orientation/consciousness Overall: oriented to person, place and time 07/01/2016 None Full Exam - General 1994 Psychiatric mood and affect Overall: normal mood and affect 07/01/2016 None Full Exam - General 1994 Constitutional general appearance Development: appears stated age 0305/16/2016 None Full Exam - General 1994 Constitutional general appearance Overall: well developed 05/16/2016 None Full Exam - General 1994 Constitutional general appearance Overall: in no acute distress 05/16/2016 None Full Exam - General 1994 Constitutional general appearance Overall: well nourished 05/16/2016 None Full Exam - General 1994 Constitutional general appearance Hygiene/Attention to Grooming: good hygiene 05/16/2016 None Full Exam - General 1994 Eyes conjunctiva /eyelids Overall: conjunctiva clear 05/16/2016 None Full Exam - General 1994 Eyes conjunctiva /eyelids Overall: cornea clear 05/16/2016 None Full Exam - General 1994 Eyes conjunctiva /eyelids Overall: eyelids normal 05/16/2016 None Full Exam - General 1994 Eyes pupils and irises Overall: pupils equal, round, reactive to light and accomodation 05/16/2016 None Full Exam - General 1994 Ears/Nose/Throat otoscopic exam Overall: external auditory canals clear 05/16/2016 None Full Exam - General 1994 Ears/Nose/Throat otoscopic exam Overall: tympanic membranes clear 05/16/2016 None Full Exam - General 1994 Ears/Nose/Throat lips/teeth/gingiva Lips: ulceration 05/16/2016 None Full Exam - General 1994 Ears/Nose/Throat oral cavity/pharynx/larynx Overall: tonsils benign 05/16/2016 None Full Exam - General 1994 Ears/Nose/Throat oral cavity/pharynx/larynx Overall: no masses 05/16/2016 None Full Exam - General 1994 Ears/Nose/Throat oral cavity/pharynx/larynx Oral mucosa: dry 05/16/2016 None Full Exam - General 1994 Ears/Nose/Throat oral cavity/pharynx/larynx Oral mucosa: thrush 05/16/2016 None Full Exam - General 1994 Respiratory auscultation Overall: breath sounds clear bilaterally 05/16/2016 None Full Exam - General 1994 Respiratory respiratory effort/rhythm Overall: no retractions 05/16/2016 None Full Exam - General 1994 Respiratory respiratory effort/rhythm Overall: normal rate 05/16/2016 None Full Exam - General 1994 Cardiovascular extremities Overall: no clubbing 05/16/2016 None Full Exam - General 1994 Cardiovascular extremities Edema present: severity 1+ - 4 +: trace to 1 05/16/2016 None Full Exam - General 1994 Cardiovascular extremities Edema present: bilateral 05/16/2016 None Full Exam - General 1994 Cardiovascular extremities Edema present: to leg 05/16/2016 None Full Exam - General 1994 Cardiovascular auscultation of heart Overall: regular rate 05/16/2016 None Full Exam - General 1994 Cardiovascular auscultation of heart Overall: normal heart sounds 05/16/2016 None Full Exam - General 1994 Abdomen abdominal exam Overall: no tenderness 05/16/2016 None Full Exam - General 1994 Abdomen abdominal exam Overall: normal bowel sounds 05/16/2016 None Full Exam - General 1994 Musculoskeletal head and neck Overall: head atraumatic 05/16/2016 None Full Exam - General 1994 Musculoskeletal head and neck Overall: cervical spine benign 05/16/2016 None Full Exam - General 1994 Neurologic cranial nerves Overall: crainial nerves 2 - 12 grossly intact 05/16/2016 None Full Exam - General 1994 Psychiatric orientation/consciousness Overall: oriented to person, place and time 05/16/2016 None Full Exam - General 1994 Psychiatric mood and affect Overall: normal mood and affect 05/16/2016 None Full Exam - General 1994 Psychiatric appearance Overall: well-groomed, good eye contact 05/16/2016 None Full Exam - Dermatology Constitutional general appearance Overall: well nourished 04/06/2016 None Full Exam - Dermatology Constitutional general appearance Overall: well developed 04/06/2016 None Full Exam - Dermatology Constitutional general appearance Overall: in no acute distress 04/06/2016 None Full Exam - Dermatology Ears/Nose/Throat lips/teeth/gingiva Overall: benign lips 04/06/2016 None Full Exam - Dermatology Eyes conjunctiva/ eyelids Overall: clear conjunctiva bilaterally 04/06/2016 None Full Exam - Dermatology Respiratory respiratory effort/rhythm Overall: no retractions 04/06/2016 None Full Exam - Dermatology Respiratory respiratory effort/rhythm Overall: normal rate 04/06/2016 None Full Exam - Dermatology Integument insp & palp - left upper extremity Location: on the fingers 04/06/2016 healing laceration - no erythema, warmth, edema, or drainage noted. Full Exam - Dermatology Psychiatric orientation Overall: oriented to person, place and time 04/06/2016 None Full Exam - Dermatology Psychiatric mood and affect Overall: normal mood and affect 04/06/2016 None Full Exam - General 1994 Constitutional general appearance Development: appears stated age 0203/30/2016 None Full Exam - General 1994 Constitutional general appearance Overall: well developed 03/30/2016 None Full Exam - General 1994 Constitutional general appearance Overall: in no acute distress 03/30/2016 None Full Exam - General 1994 Constitutional general appearance Overall: well nourished 03/30/2016 None Full Exam - General 1994 Constitutional general appearance Hygiene/Attention to Grooming: good hygiene 03/30/2016 None Full Exam - General 1994 Eyes conjunctiva /eyelids Overall: conjunctiva clear 03/30/2016 None Full Exam - General 1994 Eyes conjunctiva /eyelids Overall: cornea clear 03/30/2016 None Full Exam - General 1994 Eyes conjunctiva /eyelids Overall: eyelids normal 03/30/2016 None Full Exam - General 1994 Eyes pupils and irises Overall: pupils equal, round, reactive to light and accomodation 03/30/2016 None Full Exam - General 1994 Ears/Nose/Throat otoscopic exam Overall: external auditory canals clear 03/30/2016 None Full Exam - General 1994 Ears/Nose/Throat otoscopic exam Overall: tympanic membranes clear 03/30/2016 None Full Exam - General 1994 Ears/Nose/Throat oral cavity/pharynx/larynx Overall: tonsils benign 03/30/2016 None Full Exam - General 1994 Ears/Nose/Throat oral cavity/pharynx/larynx Overall: no masses 03/30/2016 None Full Exam - General 1994 Ears/Nose/Throat oral cavity/pharynx/larynx Oral mucosa: dry 03/30/2016 None Full Exam - General 1994 Ears/Nose/Throat oral cavity/pharynx/larynx Oral mucosa: thrush 03/30/2016 None Full Exam - General 1994 Respiratory auscultation Overall: breath sounds clear bilaterally 03/30/2016 None Full Exam - General 1994 Respiratory respiratory effort/rhythm Overall: no retractions 03/30/2016 None Full Exam - General 1994 Respiratory respiratory effort/rhythm Overall: normal rate 03/30/2016 None Full Exam - General 1994 Cardiovascular extremities Overall: no clubbing 03/30/2016 None Full Exam - General 1994 Cardiovascular extremities Edema present: severity 1+ - 4 +: trace to 1 03/30/2016 None Full Exam - General 1994 Cardiovascular extremities Edema present: bilateral 03/30/2016 None Full Exam - General 1994 Cardiovascular extremities Edema present: to leg 03/30/2016 None Full Exam - General 1994 Cardiovascular auscultation of heart Overall: regular rate 03/30/2016 None Full Exam - General 1994 Cardiovascular auscultation of heart Overall: normal heart sounds 03/30/2016 None Full Exam - General 1994 Abdomen abdominal exam Overall: no tenderness 03/30/2016 None Full Exam - General 1994 Abdomen abdominal exam Overall: normal bowel sounds 03/30/2016 None Full Exam - General 1994 Lymphatic neck nodes Overall: anterior cervical chain benign 03/30/2016 None Full Exam - General 1994 Lymphatic neck nodes Overall: posterior cervical chain benign 03/30/2016 None Full Exam - General 1994 Musculoskeletal head and neck Overall: head atraumatic 03/30/2016 None Full Exam - General 1994 Musculoskeletal head and neck Overall: cervical spine benign 03/30/2016 None Full Exam - General 1994 Integument inspection of skin Overall: few scattered moles, no gross abnormalities 03/30/2016 None Full Exam - General 1994 Neurologic cranial nerves Overall: crainial nerves 2 - 12 grossly intact 03/30/2016 None Full Exam - General 1994 Psychiatric orientation/consciousness Overall: oriented to person, place and time 03/30/2016 None Full Exam - General 1994 Psychiatric mood and affect Overall: normal mood and affect 03/30/2016 None Full Exam - General 1994 Psychiatric appearance Overall: well-groomed, good eye contact 03/30/2016 None Full Exam - General 1994 Ears/Nose/Throat lips/teeth/gingiva Lips: ulceration 03/30/2016 None Full Exam - General 1994 Constitutional general appearance Overall: well developed 02/01/2016 None Full Exam - General 1994 Constitutional general appearance Overall: in no acute distress 02/01/2016 None Full Exam - General 1994 Constitutional general appearance Overall: well nourished 02/01/2016 None Full Exam - General 1994 Eyes conjunctiva /eyelids Overall: conjunctiva clear 02/01/2016 None Full Exam - General 1994 Eyes conjunctiva /eyelids Overall: eyelids normal 02/01/2016 None Full Exam - General 1994 Ears/Nose/Throat lips/teeth/gingiva Overall: benign lips 02/01/2016 None Full Exam - General 1994 Ears/Nose/Throat oral cavity/pharynx/larynx Oral mucosa: ulceration 02/01/2016 None Full Exam - General 1994 Respiratory auscultation Overall: breath sounds clear bilaterally 02/01/2016 None Full Exam - General 1994 Respiratory respiratory effort/rhythm Overall: no retractions 02/01/2016 None Full Exam - General 1994 Respiratory respiratory effort/rhythm Overall: normal rate 02/01/2016 None Full Exam - General 1994 Cardiovascular auscultation of heart Overall: regular rate 02/01/2016 None Full Exam - General 1994 Cardiovascular auscultation of heart Overall: normal heart sounds 02/01/2016 None Full Exam - General 1994 Cardiovascular extremities Overall: no clubbing 02/01/2016 None Full Exam - General 1994 Abdomen abdominal exam Overall: normal bowel sounds 02/01/2016 None Full Exam - General 1994 Musculoskeletal gait and station Overall: normal gait 02/01/2016 None Full Exam - General 1994 Musculoskeletal gait and station Overall: normal station 02/01/2016 None Full Exam - General 1994 Musculoskeletal head and neck Overall: head atraumatic 02/01/2016 None Full Exam - General 1994 Neurologic cranial nerves Overall: crainial nerves 2 - 12 grossly intact 02/01/2016 None Full Exam - General 1994 Psychiatric orientation/consciousness Overall: oriented to person, place and time 02/01/2016 None Full Exam - General 1994 Psychiatric mood and affect Overall: normal mood and affect 02/01/2016 None Full Exam - General 1994 Psychiatric appearance Overall: well-groomed, good eye contact 02/01/2016 None Full Exam - General 1994 Constitutional general appearance Development: appears stated age 1101/25/2016 None Full Exam - General 1994 Constitutional general appearance Overall: well developed 01/25/2016 None Full Exam - General 1994 Constitutional general appearance Overall: in no acute distress 01/25/2016 None Full Exam - General 1994 Constitutional general appearance Overall: well nourished 01/25/2016 None Full Exam - General 1994 Constitutional general appearance Hygiene/Attention to Grooming: good hygiene 01/25/2016 None Full Exam - General 1994 Eyes conjunctiva /eyelids Overall: conjunctiva clear 01/25/2016 None Full Exam - General 1994 Eyes conjunctiva /eyelids Overall: cornea clear 01/25/2016 None Full Exam - General 1994 Eyes conjunctiva /eyelids Overall: eyelids normal 01/25/2016 None Full Exam - General 1994 Eyes pupils and irises Overall: pupils equal, round, reactive to light and accomodation 01/25/2016 None Full Exam - General 1994 Ears/Nose/Throat otoscopic exam Overall: external auditory canals clear 01/25/2016 None Full Exam - General 1994 Ears/Nose/Throat otoscopic exam Overall: tympanic membranes clear 01/25/2016 None Full Exam - General 1994 Ears/Nose/Throat lips/teeth/gingiva Overall: benign lips 01/25/2016 deformity on the left lower jaw Full Exam - General 1994 Ears/Nose/Throat oral cavity/pharynx/larynx Overall: tonsils benign 01/25/2016 None Full Exam - General 1994 Ears/Nose/Throat oral cavity/pharynx/larynx Overall: no masses 01/25/2016 None Full Exam - General 1994 Ears/Nose/Throat oral cavity/pharynx/larynx Oral mucosa: dry 01/25/2016 None Full Exam - General 1994 Respiratory auscultation Overall: breath sounds clear bilaterally 01/25/2016 None Full Exam - General 1994 Respiratory respiratory effort/rhythm Overall: no retractions 01/25/2016 None Full Exam - General 1994 Respiratory respiratory effort/rhythm Overall: normal rate 01/25/2016 None Full Exam - General 1994 Cardiovascular extremities Overall: no clubbing 01/25/2016 None Full Exam - General 1994 Cardiovascular extremities Edema present: severity 1+ - 4 +: trace to 1 01/25/2016 None Full Exam - General 1994 Cardiovascular extremities Edema present: bilateral 01/25/2016 None Full Exam - General 1994 Cardiovascular extremities Edema present: to leg 01/25/2016 None Full Exam - General 1994 Cardiovascular auscultation of heart Overall: regular rate 01/25/2016 None Full Exam - General 1994 Cardiovascular auscultation of heart Overall: normal heart sounds 01/25/2016 None Full Exam - General 1994 Psychiatric orientation/consciousness Overall: oriented to person, place and time 01/25/2016 None Full Exam - General 1994 Psychiatric mood and affect Overall: normal mood and affect 01/25/2016 None Full Exam - General 1994 Psychiatric appearance Overall: well-groomed, good eye contact 01/25/2016 None Full Exam - General 1994 Constitutional general appearance Development: appears stated age 1012/24/2015 None Full Exam - General 1994 Constitutional general appearance Overall: well developed 12/24/2015 None Full Exam - General 1994 Constitutional general appearance Overall: in no acute distress 12/24/2015 None Full Exam - General 1994 Constitutional general appearance Overall: well nourished 12/24/2015 None Full Exam - General 1994 Constitutional general appearance Hygiene/Attention to Grooming: good hygiene 12/24/2015 None Full Exam - General 1994 Eyes conjunctiva /eyelids Overall: conjunctiva clear 12/24/2015 None Full Exam - General 1994 Eyes conjunctiva /eyelids Overall: cornea clear 12/24/2015 None Full Exam - General 1994 Eyes conjunctiva /eyelids Overall: eyelids normal 12/24/2015 None Full Exam - General 1994 Eyes pupils and irises Overall: pupils equal, round, reactive to light and accomodation 12/24/2015 None Full Exam - General 1994 Ears/Nose/Throat otoscopic exam Overall: external auditory canals clear 12/24/2015 None Full Exam - General 1994 Ears/Nose/Throat otoscopic exam Overall: tympanic membranes clear 12/24/2015 None Full Exam - General 1994 Ears/Nose/Throat lips/teeth/gingiva Overall: benign lips 12/24/2015 deformity on the left lower jaw Full Exam - General 1994 Ears/Nose/Throat oral cavity/pharynx/larynx Overall: tonsils benign 12/24/2015 None Full Exam - General 1994 Ears/Nose/Throat oral cavity/pharynx/larynx Overall: no masses 12/24/2015 None Full Exam - General 1994 Ears/Nose/Throat oral cavity/pharynx/larynx Oral mucosa: dry 12/24/2015 None Full Exam - General 1994 Ears/Nose/Throat oral cavity/pharynx/larynx Oral mucosa: thrush 12/24/2015 None Full Exam - General 1994 Respiratory auscultation Overall: breath sounds clear bilaterally 12/24/2015 None Full Exam - General 1994 Respiratory respiratory effort/rhythm Overall: no retractions 12/24/2015 None Full Exam - General 1994 Respiratory respiratory effort/rhythm Overall: normal rate 12/24/2015 None Full Exam - General 1994 Cardiovascular extremities Overall: no clubbing 12/24/2015 None Full Exam - General 1994 Cardiovascular extremities Edema present: severity 1+ - 4 +: trace to 1 12/24/2015 None Full Exam - General 1994 Cardiovascular extremities Edema present: bilateral 12/24/2015 None Full Exam - General 1994 Cardiovascular extremities Edema present: to leg 12/24/2015 None Full Exam - General 1994 Cardiovascular auscultation of heart Overall: regular rate 12/24/2015 None Full Exam - General 1994 Cardiovascular auscultation of heart Overall: normal heart sounds 12/24/2015 None Full Exam - General 1994 Abdomen abdominal exam Overall: no tenderness 12/24/2015 None Full Exam - General 1994 Abdomen abdominal exam Overall: normal bowel sounds 12/24/2015 None Full Exam - General 1994 Lymphatic neck nodes Overall: anterior cervical chain benign 12/24/2015 None Full Exam - General 1994 Lymphatic neck nodes Overall: posterior cervical chain benign 12/24/2015 None Full Exam - General 1994 Musculoskeletal head and neck Overall: head atraumatic 12/24/2015 None Full Exam - General 1994 Musculoskeletal head and neck Overall: cervical spine benign 12/24/2015 None Full Exam - General 1994 Integument inspection of skin Overall: few scattered moles, no gross abnormalities 12/24/2015 None Full Exam - General 1994 Neurologic cranial nerves Overall: crainial nerves 2 - 12 grossly intact 12/24/2015 None Full Exam - General 1994 Psychiatric orientation/consciousness Overall: oriented to person, place and time 12/24/2015 None Full Exam - General 1994 Psychiatric mood and affect Overall: normal mood and affect 12/24/2015 None Full Exam - General 1994 Psychiatric appearance Overall: well-groomed, good eye contact 12/24/2015 None Full Exam - ENT Constitutional general appearance Overall: well nourished 12/18/2015 None Full Exam - ENT Constitutional general appearance Overall: well developed 12/18/2015 None Full Exam - ENT Constitutional general appearance Overall: in no acute distress 12/18/2015 None Full Exam - ENT Ears/Nose/Throat otoscopic exam Overall: external auditory canals normal 12/18/2015 None Full Exam - ENT Ears/Nose/Throat otoscopic exam Left tympanic membrane: air -fluid level 12/18/2015 None Full Exam - ENT Ears/Nose/Throat otoscopic exam Right tympanic membrane: air-fluid level 12/18/2015 None Full Exam - ENT Ears/Nose/Throat oropharynx Overall: oral mucosa clear 12/18/2015 None Full Exam - ENT Ears/Nose/Throat oropharynx Posterior Pharynx: clear post nasal drainage 12/18/2015 None Full Exam - ENT Face and Head palpation Right maxillary sinus: tender 12/18/2015 None Full Exam - ENT Face and Head palpation Left maxillary sinus: tender 12/18/2015 None Full Exam - ENT Respiratory auscultation Overall: breath sounds clear bilaterally 12/18/2015 None Full Exam - ENT Respiratory inspection Overall: normal rate None Full Exam - ENT Respiratory inspection Overall: no retractions 12/18/2015 None Full Exam - ENT Cardiovascular auscultation of heart Overall: normal heart sounds 12/18/2015 None Full Exam - ENT Cardiovascular auscultation of heart Overall: regular rate 12/18/2015 None Full Exam - ENT Lymphatic palpation of lymph nodes Overall: posterior cervical chain benign 12/18/2015 None Full Exam - ENT Lymphatic palpation of lymph nodes Overall: anterior cervical chain benign 12/18/2015 None Full Exam - ENT Neurologic mood and affect Overall: normal affect 12/18/2015 None Full Exam - ENT Neurologic mood and affect Overall: normal mood 12/18/2015 None Full Exam - ENT Neurologic orientation Overall: oriented to person, place and time 12/18/2015 None Full Exam - General 1994 Constitutional general appearance Development: appears stated age 0911/26/2015 None Full Exam - General 1994 Constitutional general appearance Overall: well developed 11/26/2015 None Full Exam - General 1994 Constitutional general appearance Overall: in no acute distress 11/26/2015 None Full Exam - General 1994 Constitutional general appearance Overall: well nourished 11/26/2015 None Full Exam - General 1994 Constitutional general appearance Hygiene/Attention to Grooming: good hygiene 11/26/2015 None Full Exam - General 1994 Eyes conjunctiva /eyelids Overall: conjunctiva clear 11/26/2015 None Full Exam - General 1994 Eyes conjunctiva /eyelids Overall: cornea clear 11/26/2015 None Full Exam - General 1994 Eyes conjunctiva /eyelids Overall: eyelids normal 11/26/2015 None Full Exam - General 1994 Eyes pupils and irises Overall: pupils equal, round, reactive to light and accomodation 11/26/2015 None Full Exam - General 1994 Ears/Nose/Throat otoscopic exam Overall: external auditory canals clear 11/26/2015 None Full Exam - General 1994 Ears/Nose/Throat otoscopic exam Overall: tympanic membranes clear 11/26/2015 None Full Exam - General 1994 Ears/Nose/Throat lips/teeth/gingiva Overall: benign lips 11/26/2015 deformity on the left lower jaw Full Exam - General 1994 Ears/Nose/Throat oral cavity/pharynx/larynx Overall: tonsils benign 11/26/2015 None Full Exam - General 1994 Ears/Nose/Throat oral cavity/pharynx/larynx Overall: no masses 11/26/2015 None Full Exam - General 1994 Ears/Nose/Throat oral cavity/pharynx/larynx Oral mucosa: dry 11/26/2015 None Full Exam - General 1994 Ears/Nose/Throat oral cavity/pharynx/larynx Oral mucosa: thrush 11/26/2015 None Full Exam - General 1994 Respiratory auscultation Overall: breath sounds clear bilaterally 11/26/2015 None Full Exam - General 1994 Respiratory respiratory effort/rhythm Overall: no retractions 11/26/2015 None Full Exam - General 1994 Respiratory respiratory effort/rhythm Overall: normal rate 11/26/2015 None Full Exam - General 1994 Cardiovascular extremities Overall: no clubbing 11/26/2015 None Full Exam - General 1994 Cardiovascular extremities Edema present: severity 1+ - 4 +: trace to 1 11/26/2015 None Full Exam - General 1994 Cardiovascular extremities Edema present: bilateral 11/26/2015 None Full Exam - General 1994 Cardiovascular extremities Edema present: to leg 11/26/2015 None Full Exam - General 1994 Cardiovascular auscultation of heart Overall: regular rate 11/26/2015 None Full Exam - General 1994 Cardiovascular auscultation of heart Overall: normal heart sounds 11/26/2015 None Full Exam - General 1994 Abdomen abdominal exam Overall: no tenderness 11/26/2015 None Full Exam - General 1994 Abdomen abdominal exam Overall: normal bowel sounds 11/26/2015 None Full Exam - General 1994 Lymphatic neck nodes Overall: anterior cervical chain benign 11/26/2015 None Full Exam - General 1994 Lymphatic neck nodes Overall: posterior cervical chain benign 11/26/2015 None Full Exam - General 1994 Musculoskeletal lower extremity Palpation - knee: crepitus 11/26/2015 None Full Exam - General 1994 Musculoskeletal spine, ribs and pelvis Overall: good posture 11/26/2015 None Full Exam - General 1994 Musculoskeletal head and neck Overall: head atraumatic 11/26/2015 None Full Exam - General 1994 Musculoskeletal head and neck Overall: cervical spine benign 11/26/2015 None Full Exam - General 1994 Integument inspection of skin Overall: few scattered moles, no gross abnormalities 11/26/2015 None Full Exam - General 1994 Neurologic cranial nerves Overall: crainial nerves 2 - 12 grossly intact 11/26/2015 None Full Exam - General 1994 Psychiatric orientation/consciousness Overall: oriented to person, place and time 11/26/2015 None Full Exam - General 1994 Psychiatric mood and affect Overall: normal mood and affect 11/26/2015 None Full Exam - General 1994 Psychiatric appearance Overall: well-groomed, good eye contact 11/26/2015 None Full Exam - General 1994 Constitutional general appearance Overall: well developed 10/21/2015 None Full Exam - General 1994 Constitutional general appearance Overall: in no acute distress 10/21/2015 None Full Exam - General 1994 Constitutional general appearance Overall: well nourished 10/21/2015 None Full Exam - General 1994 Constitutional general appearance Hygiene/Attention to Grooming: good hygiene 10/21/2015 None Full Exam - General 1994 Eyes conjunctiva /eyelids Overall: conjunctiva clear 10/21/2015 None Full Exam - General 1994 Eyes conjunctiva /eyelids Overall: cornea clear 10/21/2015 None Full Exam - General 1994 Eyes conjunctiva /eyelids Overall: eyelids normal 10/21/2015 None Full Exam - General 1994 Ears/Nose/Throat lips/teeth/gingiva Overall: benign lips 10/21/2015 deformity on the left lower jaw Full Exam - General 1994 Respiratory respiratory effort/rhythm Overall: no retractions 10/21/2015 None Full Exam - General 1994 Respiratory respiratory effort/rhythm Overall: normal rate 10/21/2015 None Full Exam - General 1994 Cardiovascular extremities Overall: no clubbing 10/21/2015 None Full Exam - General 1994 Cardiovascular extremities Edema present: severity 1+ - 4 +: trace to 1 10/21/2015 None Full Exam - General 1994 Cardiovascular extremities Edema present: bilateral 10/21/2015 None Full Exam - General 1994 Cardiovascular extremities Edema present: to leg 10/21/2015 None Full Exam - General 1994 Musculoskeletal spine, ribs and pelvis Overall: good posture 10/21/2015 None Full Exam - General 1994 Neurologic cranial nerves Overall: crainial nerves 2 - 12 grossly intact 10/21/2015 None Full Exam - General 1994 Psychiatric orientation/consciousness Overall: oriented to person, place and time 10/21/2015 None Full Exam - General 1994 Psychiatric mood and affect Overall: normal mood and affect 10/21/2015 None Full Exam - General 1994 Psychiatric appearance Overall: well-groomed, good eye contact 10/21/2015 None Full Exam - General 1994 Integument inspection of skin Location: face 10/21/2015 right cheek Full Exam - General 1994 Integument inspection of skin Pigmentation: erythematous 10/21/2015 well approximated Full Exam - General 1994 Constitutional general appearance Development: appears stated age 0406/15/2015 None Full Exam - General 1994 Constitutional general appearance Overall: well developed 06/15/2015 None Full Exam - General 1994 Constitutional general appearance Overall: in no acute distress 06/15/2015 None Full Exam - General 1994 Constitutional general appearance Overall: well nourished 06/15/2015 None Full Exam - General 1994 Constitutional general appearance Hygiene/Attention to Grooming: good hygiene 06/15/2015 None Full Exam - General 1994 Eyes conjunctiva /eyelids Overall: conjunctiva clear 06/15/2015 None Full Exam - General 1994 Eyes conjunctiva /eyelids Overall: cornea clear 06/15/2015 None Full Exam - General 1994 Eyes conjunctiva /eyelids Overall: eyelids normal 06/15/2015 None Full Exam - General 1994 Eyes pupils and irises Overall: pupils equal, round, reactive to light and accomodation 06/15/2015 None Full Exam - General 1994 Ears/Nose/Throat otoscopic exam Overall: external auditory canals clear 06/15/2015 None Full Exam - General 1994 Ears/Nose/Throat otoscopic exam Overall: tympanic membranes clear 06/15/2015 None Full Exam - General 1994 Ears/Nose/Throat lips/teeth/gingiva Overall: benign lips 06/15/2015 deformity on the left lower jaw Full Exam - General 1994 Ears/Nose/Throat oral cavity/pharynx/larynx Overall: tonsils benign 06/15/2015 None Full Exam - General 1994 Ears/Nose/Throat oral cavity/pharynx/larynx Overall: no masses 06/15/2015 None Full Exam - General 1994 Ears/Nose/Throat oral cavity/pharynx/larynx Oral mucosa: dry 06/15/2015 None Full Exam - General 1994 Ears/Nose/Throat oral cavity/pharynx/larynx Oral mucosa: thrush 06/15/2015 None Full Exam - General 1994 Respiratory auscultation Overall: breath sounds clear bilaterally 06/15/2015 None Full Exam - General 1994 Respiratory respiratory effort/rhythm Overall: no retractions 06/15/2015 None Full Exam - General 1994 Respiratory respiratory effort/rhythm Overall: normal rate 06/15/2015 None Full Exam - General 1994 Cardiovascular extremities Overall: no clubbing 06/15/2015 None Full Exam - General 1994 Cardiovascular extremities Edema present: severity 1+ - 4 +: trace to 1 06/15/2015 None Full Exam - General 1994 Cardiovascular extremities Edema present: bilateral 06/15/2015 None Full Exam - General 1994 Cardiovascular extremities Edema present: to leg 06/15/2015 None Full Exam - General 1994 Cardiovascular auscultation of heart Overall: regular rate 06/15/2015 None Full Exam - General 1994 Cardiovascular auscultation of heart Overall: normal heart sounds 06/15/2015 None Full Exam - General 1994 Abdomen abdominal exam Overall: no tenderness 06/15/2015 None Full Exam - General 1994 Abdomen abdominal exam Overall: normal bowel sounds 06/15/2015 None Full Exam - General 1994 Lymphatic neck nodes Overall: anterior cervical chain benign 06/15/2015 None Full Exam - General 1994 Lymphatic neck nodes Overall: posterior cervical chain benign 06/15/2015 None Full Exam - General 1994 Musculoskeletal lower extremity Palpation - knee: crepitus 06/15/2015 None Full Exam - General 1994 Musculoskeletal spine, ribs and pelvis Overall: good posture 06/15/2015 None Full Exam - General 1994 Musculoskeletal head and neck Overall: head atraumatic 06/15/2015 None Full Exam - General 1994 Musculoskeletal head and neck Overall: cervical spine benign 06/15/2015 None Full Exam - General 1994 Integument inspection of skin Overall: few scattered moles, no gross abnormalities 06/15/2015 None Full Exam - General 1994 Neurologic cranial nerves Overall: crainial nerves 2 - 12 grossly intact 06/15/2015 None Full Exam - General 1994 Psychiatric orientation/consciousness Overall: oriented to person, place and time 06/15/2015 None Full Exam - General 1994 Psychiatric mood and affect Overall: normal mood and affect 06/15/2015 None Full Exam - General 1994 Psychiatric appearance Overall: well-groomed, good eye contact 06/15/2015 None Full Exam - General 1994 Constitutional general appearance Development: appears stated age 0305/19/2015 None Full Exam - General 1994 Constitutional general appearance Overall: well developed 05/19/2015 None Full Exam - General 1994 Constitutional general appearance Overall: in no acute distress 05/19/2015 None Full Exam - General 1994 Constitutional general appearance Overall: well nourished 05/19/2015 None Full Exam - General 1994 Constitutional general appearance Hygiene/Attention to Grooming: good hygiene 05/19/2015 None Full Exam - General 1994 Eyes conjunctiva /eyelids Overall: conjunctiva clear 05/19/2015 None Full Exam - General 1994 Eyes conjunctiva /eyelids Overall: cornea clear 05/19/2015 None Full Exam - General 1994 Eyes conjunctiva /eyelids Overall: eyelids normal 05/19/2015 None Full Exam - General 1994 Eyes pupils and irises Overall: pupils equal, round, reactive to light and accomodation 05/19/2015 None Full Exam - General 1994 Ears/Nose/Throat lips/teeth/gingiva Overall: benign lips 05/19/2015 deformity on the left lower jaw Full Exam - General 1994 Ears/Nose/Throat oral cavity/pharynx/larynx Overall: tonsils benign 05/19/2015 None Full Exam - General 1994 Ears/Nose/Throat oral cavity/pharynx/larynx Overall: no masses 05/19/2015 None Full Exam - General 1994 Ears/Nose/Throat oral cavity/pharynx/larynx Oral mucosa: dry 05/19/2015 None Full Exam - General 1994 Ears/Nose/Throat oral cavity/pharynx/larynx Oral mucosa: thrush 05/19/2015 None Full Exam - General 1994 Respiratory auscultation Overall: breath sounds clear bilaterally 05/19/2015 None Full Exam - General 1994 Respiratory respiratory effort/rhythm Overall: no retractions 05/19/2015 None Full Exam - General 1994 Respiratory respiratory effort/rhythm Overall: normal rate 05/19/2015 None Full Exam - General 1994 Cardiovascular extremities Overall: no clubbing 05/19/2015 None Full Exam - General 1994 Cardiovascular extremities Edema present: severity 1+ - 4 +: trace to 1 05/19/2015 None Full Exam - General 1994 Cardiovascular extremities Edema present: bilateral 05/19/2015 None Full Exam - General 1994 Cardiovascular extremities Edema present: to leg 05/19/2015 None Full Exam - General 1994 Cardiovascular auscultation of heart Overall: regular rate 05/19/2015 None Full Exam - General 1994 Cardiovascular auscultation of heart Overall: normal heart sounds 05/19/2015 None Full Exam - General 1994 Abdomen abdominal exam Overall: no tenderness 05/19/2015 None Full Exam - General 1994 Abdomen abdominal exam Overall: normal bowel sounds 05/19/2015 None Full Exam - General 1994 Lymphatic neck nodes Overall: anterior cervical chain benign 05/19/2015 None Full Exam - General 1994 Lymphatic neck nodes Overall: posterior cervical chain benign 05/19/2015 None Full Exam - General 1994 Musculoskeletal spine, ribs and pelvis Overall: good posture 05/19/2015 None Full Exam - General 1994 Musculoskeletal head and neck Overall: head atraumatic 05/19/2015 None Full Exam - General 1994 Musculoskeletal head and neck Overall: cervical spine benign 05/19/2015 None Full Exam - General 1994 Neurologic cranial nerves Overall: crainial nerves 2 - 12 grossly intact 05/19/2015 None Full Exam - General 1994 Psychiatric orientation/consciousness Overall: oriented to person, place and time 05/19/2015 None Full Exam - General 1994 Psychiatric mood and affect Overall: normal mood and affect 05/19/2015 None Full Exam - General 1994 Psychiatric appearance Overall: well-groomed, good eye contact 05/19/2015 None Full Exam - General 1994 Constitutional general appearance Development: appears stated age 0204/24/2015 None Full Exam - General 1994 Constitutional general appearance Overall: well developed 04/24/2015 None Full Exam - General 1994 Constitutional general appearance Overall: in no acute distress 04/24/2015 None Full Exam - General 1994 Constitutional general appearance Overall: well nourished 04/24/2015 None Full Exam - General 1994 Constitutional general appearance Hygiene/Attention to Grooming: good hygiene 04/24/2015 None Full Exam - General 1994 Eyes conjunctiva /eyelids Overall: conjunctiva clear 04/24/2015 None Full Exam - General 1994 Eyes conjunctiva /eyelids Overall: cornea clear 04/24/2015 None Full Exam - General 1994 Eyes conjunctiva /eyelids Overall: eyelids normal 04/24/2015 None Full Exam - General 1994 Eyes pupils and irises Overall: pupils equal, round, reactive to light and accomodation 04/24/2015 None Full Exam - General 1994 Ears/Nose/Throat lips/teeth/gingiva Overall: benign lips 04/24/2015 deformity on the left lower jaw Full Exam - General 1994 Ears/Nose/Throat oral cavity/pharynx/larynx Oral mucosa: dry 04/24/2015 None Full Exam - General 1994 Respiratory auscultation Overall: breath sounds clear bilaterally 04/24/2015 None Full Exam - General 1994 Respiratory respiratory effort/rhythm Overall: no retractions 04/24/2015 None Full Exam - General 1994 Respiratory respiratory effort/rhythm Overall: normal rate 04/24/2015 None Full Exam - General 1994 Cardiovascular extremities Overall: no clubbing 04/24/2015 None Full Exam - General 1994 Cardiovascular extremities Edema present: severity 1+ - 4 +: trace to 1 04/24/2015 None Full Exam - General 1994 Cardiovascular extremities Edema present: bilateral 04/24/2015 None Full Exam - General 1994 Cardiovascular extremities Edema present: to leg 04/24/2015 None Full Exam - General 1994 Cardiovascular auscultation of heart Overall: regular rate 04/24/2015 None Full Exam - General 1994 Cardiovascular auscultation of heart Overall: normal heart sounds 04/24/2015 None Full Exam - General 1994 Abdomen abdominal exam Overall: no tenderness 04/24/2015 None Full Exam - General 1994 Abdomen abdominal exam Overall: normal bowel sounds 04/24/2015 None Full Exam - General 1994 Lymphatic neck nodes Overall: anterior cervical chain benign 04/24/2015 None Full Exam - General 1994 Lymphatic neck nodes Overall: posterior cervical chain benign 04/24/2015 None Full Exam - General 1994 Musculoskeletal spine, ribs and pelvis Overall: good posture 04/24/2015 None Full Exam - General 1994 Musculoskeletal head and neck Overall: head atraumatic 04/24/2015 None Full Exam - General 1994 Musculoskeletal head and neck Overall: cervical spine benign 04/24/2015 None Full Exam - General 1994 Integument inspection of skin Overall: few scattered moles, no gross abnormalities 04/24/2015 None Full Exam - General 1994 Neurologic cranial nerves Overall: crainial nerves 2 - 12 grossly intact 04/24/2015 None Full Exam - General 1994 Psychiatric orientation/consciousness Overall: oriented to person, place and time 04/24/2015 None Full Exam - General 1994 Psychiatric mood and affect Overall: normal mood and affect 04/24/2015 None Full Exam - General 1994 Psychiatric appearance Overall: well-groomed, good eye contact 04/24/2015 None Full Exam - General 1994 Ears/Nose/Throat otoscopic exam Tympanic membrane: not visualized 04/24/2015 None Full Exam - General 1994 Ears/Nose/Throat otoscopic exam External auditory canal: complete cerumen impaction 04/24/2015 None Full Exam - General 1994 Ears/Nose/Throat otoscopic exam External auditory canal: minimal cerumen 04/24/2015 None Full Exam - General 1994 Ears/Nose/Throat otoscopic exam Tympanic membrane: air- fluid level 04/24/2015 None Full Exam - General 1994 Ears/Nose/Throat oral cavity/pharynx/larynx Posterior Pharynx: clear post nasal drainage 04/24/2015 None Full Exam - General 1994 Constitutional general appearance Development: appears stated age 0103/12/2015 None Full Exam - General 1994 Constitutional general appearance Overall: well developed 03/12/2015 None Full Exam - General 1994 Constitutional general appearance Overall: in no acute distress 03/12/2015 None Full Exam - General 1994 Constitutional general appearance Overall: well nourished 03/12/2015 None Full Exam - General 1994 Constitutional general appearance Hygiene/Attention to Grooming: good hygiene 03/12/2015 None Full Exam - General 1994 Eyes conjunctiva /eyelids Overall: conjunctiva clear 03/12/2015 None Full Exam - General 1994 Eyes conjunctiva /eyelids Overall: cornea clear 03/12/2015 None Full Exam - General 1994 Eyes conjunctiva /eyelids Overall: eyelids normal 03/12/2015 None Full Exam - General 1994 Eyes pupils and irises Overall: pupils equal, round, reactive to light and accomodation 03/12/2015 None Full Exam - General 1994 Ears/Nose/Throat otoscopic exam Overall: external auditory canals clear 03/12/2015 None Full Exam - General 1994 Ears/Nose/Throat otoscopic exam Overall: tympanic membranes clear 03/12/2015 None Full Exam - General 1994 Ears/Nose/Throat lips/teeth/gingiva Overall: benign lips 03/12/2015 deformity on the left lower jaw Full Exam - General 1994 Ears/Nose/Throat oral cavity/pharynx/larynx Overall: tonsils benign 03/12/2015 None Full Exam - General 1994 Ears/Nose/Throat oral cavity/pharynx/larynx Overall: no masses 03/12/2015 None Full Exam - General 1994 Ears/Nose/Throat oral cavity/pharynx/larynx Oral mucosa: dry 03/12/2015 None Full Exam - General 1994 Ears/Nose/Throat oral cavity/pharynx/larynx Oral mucosa: thrush 03/12/2015 None Full Exam - General 1994 Respiratory auscultation Overall: breath sounds clear bilaterally 03/12/2015 None Full Exam - General 1994 Respiratory respiratory effort/rhythm Overall: no retractions 03/12/2015 None Full Exam - General 1994 Respiratory respiratory effort/rhythm Overall: normal rate 03/12/2015 None Full Exam - General 1994 Cardiovascular extremities Overall: no clubbing 03/12/2015 None Full Exam - General 1994 Cardiovascular extremities Edema present: severity 1+ - 4 +: trace to 1 03/12/2015 None Full Exam - General 1994 Cardiovascular extremities Edema present: bilateral 03/12/2015 None Full Exam - General 1994 Cardiovascular extremities Edema present: to leg 03/12/2015 None Full Exam - General 1994 Cardiovascular auscultation of heart Overall: regular rate 03/12/2015 None Full Exam - General 1994 Cardiovascular auscultation of heart Overall: normal heart sounds 03/12/2015 None Full Exam - General 1994 Abdomen abdominal exam Overall: no tenderness 03/12/2015 None Full Exam - General 1994 Abdomen abdominal exam Overall: normal bowel sounds 03/12/2015 None Full Exam - General 1994 Lymphatic neck nodes Overall: anterior cervical chain benign 03/12/2015 None Full Exam - General 1994 Lymphatic neck nodes Overall: posterior cervical chain benign 03/12/2015 None Full Exam - General 1994 Musculoskeletal lower extremity Palpation - knee: crepitus 03/12/2015 None Full Exam - General 1994 Musculoskeletal spine, ribs and pelvis Overall: good posture 03/12/2015 None Full Exam - General 1994 Musculoskeletal head and neck Overall: head atraumatic 03/12/2015 None Full Exam - General 1994 Musculoskeletal head and neck Overall: cervical spine benign 03/12/2015 None Full Exam - General 1994 Integument inspection of skin Overall: few scattered moles, no gross abnormalities 03/12/2015 None Full Exam - General 1994 Neurologic cranial nerves Overall: crainial nerves 2 - 12 grossly intact 03/12/2015 None Full Exam - General 1994 Psychiatric orientation/consciousness Overall: oriented to person, place and time 03/12/2015 None Full Exam - General 1994 Psychiatric mood and affect Overall: normal mood and affect 03/12/2015 None Full Exam - General 1994 Psychiatric appearance Overall: well-groomed, good eye contact 03/12/2015 None Full Exam - General 1994 Constitutional general appearance Overall: well developed 01/12/2015 None Full Exam - General 1994 Constitutional general appearance Overall: in no acute distress 01/12/2015 None Full Exam - General 1994 Constitutional general appearance Overall: well nourished 01/12/2015 None Full Exam - General 1994 Musculoskeletal head and neck Overall: head atraumatic 01/12/2015 None Full Exam - General 1994 Musculoskeletal head and neck Overall: cervical spine benign 01/12/2015 None Full Exam - General 1994 Psychiatric orientation/consciousness Overall: oriented to person, place and time 01/12/2015 None Full Exam - General 1994 Psychiatric appearance Overall: well-groomed, good eye contact 01/12/2015 None Full Exam - General 1994 Ears/Nose/Throat otoscopic exam Overall: external auditory canals clear 01/12/2015 None Full Exam - General 1994 Ears/Nose/Throat otoscopic exam Overall: tympanic membranes clear 01/12/2015 None Full Exam - General 1994 Ears/Nose/Throat oral cavity/pharynx/larynx Oral mucosa: thrush 01/12/2015 None Full Exam - General 1994 Ears/Nose/Throat oral cavity/pharynx/larynx Overall: tonsils benign 01/12/2015 None Full Exam - General 1994 Respiratory auscultation Overall: breath sounds clear bilaterally 01/12/2015 None Full Exam - General 1994 Respiratory respiratory effort/rhythm Overall: no retractions 01/12/2015 None Full Exam - General 1994 Respiratory respiratory effort/rhythm Overall: normal rate 01/12/2015 None Full Exam - General 1994 Cardiovascular auscultation of heart Overall: regular rate 01/12/2015 None Full Exam - General 1994 Cardiovascular auscultation of heart Overall: normal heart sounds 01/12/2015 None Full Exam - General 1994 Cardiovascular extremities Edema present: severity 1+ - 4 +: trace to 1 01/12/2015 None Full Exam - General 1994 Cardiovascular extremities Edema present: bilateral 01/12/2015 None Full Exam - General 1994 Cardiovascular extremities Edema present: to leg 01/12/2015 None Full Exam - General 1994 Abdomen abdominal exam Overall: normal bowel sounds 01/12/2015 None Full Exam - General 1994 Abdomen abdominal exam Overall: no tenderness 01/12/2015 None Full Exam - General 1994 Neurologic cranial nerves Overall: crainial nerves 2 - 12 grossly intact 01/12/2015 None Full Exam - General 1994 Ears/Nose/Throat oral cavity/pharynx/larynx Oral mucosa: dry 01/12/2015 None Full Exam - General 1994 Constitutional general appearance Development: appears stated age 1101/12/2015 None Full Exam - General 1994 Constitutional general appearance Hygiene/Attention to Grooming: good hygiene 01/12/2015 None Full Exam - General 1994 Eyes conjunctiva /eyelids Overall: conjunctiva clear 01/12/2015 None Full Exam - General 1994 Eyes conjunctiva /eyelids Overall: cornea clear 01/12/2015 None Full Exam - General 1994 Eyes conjunctiva /eyelids Overall: eyelids normal 01/12/2015 None Full Exam - General 1994 Eyes pupils and irises Overall: pupils equal, round, reactive to light and accomodation 01/12/2015 None Full Exam - General 1994 Ears/Nose/Throat lips/teeth/gingiva Overall: benign lips 01/12/2015 deformity on the left lower jaw Full Exam - General 1994 Cardiovascular extremities Overall: no clubbing 01/12/2015 None Full Exam - General 1994 Lymphatic neck nodes Overall: anterior cervical chain benign 01/12/2015 None Full Exam - General 1994 Lymphatic neck nodes Overall: posterior cervical chain benign 01/12/2015 None Full Exam - General 1994 Musculoskeletal spine, ribs and pelvis Overall: good posture 01/12/2015 None Full Exam - General 1994 Integument inspection of skin Overall: few scattered moles, no gross abnormalities 01/12/2015 None Full Exam - General 1994 Psychiatric mood and affect Overall: normal mood and affect 01/12/2015 None Full Exam - General 1994 Ears/Nose/Throat oral cavity/pharynx/larynx Overall: no masses 01/12/2015 None Full Exam - General 1994 Musculoskeletal lower extremity Palpation - knee: crepitus 01/12/2015 None Full Exam - General 1994 Constitutional general appearance Overall: well nourished 12/11/2014 None Full Exam - General 1994 Constitutional general appearance Overall: well developed 12/11/2014 None Full Exam - General 1994 Constitutional general appearance Overall: in no acute distress 12/11/2014 None Full Exam - General 1994 Psychiatric orientation/consciousness Overall: oriented to person, place and time 12/11/2014 None Full Exam - General 1994 Psychiatric appearance Overall: well-groomed, good eye contact 12/11/2014 None Full Exam - General 1994 Musculoskeletal head and neck Overall: cervical spine benign 12/11/2014 None Full Exam - General 1994 Musculoskeletal head and neck Overall: head atraumatic 12/11/2014 None Full Exam - General 1994 Musculoskeletal lower extremity Overall: knee benign 12/11/2014 None Full Exam - General 1994 Musculoskeletal lower extremity Overall: ankle benign 12/11/2014 None Full Exam - General 1994 Musculoskeletal lower extremity Overall: foot benign 12/11/2014 None Full Exam - General 1994 Constitutional general appearance Development: well developed 12/01/2014 None Full Exam - General 1994 Constitutional general appearance Development: appears stated age 1012/01/2014 None Full Exam - General 1994 Constitutional general appearance Hygiene/Attention to Grooming: good hygiene 12/01/2014 None Full Exam - General 1994 Eyes conjunctiva /eyelids Overall: conjunctiva clear 12/01/2014 None Full Exam - General 1994 Eyes conjunctiva /eyelids Overall: cornea clear 12/01/2014 None Full Exam - General 1994 Eyes conjunctiva /eyelids Overall: eyelids normal 12/01/2014 None Full Exam - General 1994 Eyes pupils and irises Overall: pupils equal, round, reactive to light and accomodation 12/01/2014 None Full Exam - General 1994 Ears/Nose/Throat otoscopic exam Overall: external auditory canals clear 12/01/2014 None Full Exam - General 1994 Ears/Nose/Throat otoscopic exam Overall: tympanic membranes clear 12/01/2014 None Full Exam - General 1994 Ears/Nose/Throat lips/teeth/gingiva Overall: benign lips 12/01/2014 deformity on the left lower jaw Full Exam - General 1994 Ears/Nose/Throat oral cavity/pharynx/larynx Overall: oral mucosa clear 12/01/2014 None Full Exam - General 1994 Ears/Nose/Throat oral cavity/pharynx/larynx Overall: oropharyngeal mucosa clear 12/01/2014 None Full Exam - General 1994 Ears/Nose/Throat oral cavity/pharynx/larynx Overall: hypopharynx benign 12/01/2014 None Full Exam - General 1994 Ears/Nose/Throat oral cavity/pharynx/larynx Overall: no masses 12/01/2014 None Full Exam - General 1994 Respiratory auscultation Overall: breath sounds clear bilaterally 12/01/2014 None Full Exam - General 1994 Respiratory respiratory effort/rhythm Overall: no retractions 12/01/2014 None Full Exam - General 1994 Respiratory respiratory effort/rhythm Overall: normal rate 12/01/2014 None Full Exam - General 1994 Cardiovascular extremities Overall: no clubbing 12/01/2014 None Full Exam - General 1994 Cardiovascular auscultation of heart Overall: regular rate 12/01/2014 None Full Exam - General 1994 Cardiovascular auscultation of heart Overall: normal heart sounds 12/01/2014 None Full Exam - General 1994 Abdomen abdominal exam Overall: no tenderness 12/01/2014 None Full Exam - General 1994 Abdomen abdominal exam Overall: normal bowel sounds 12/01/2014 None Full Exam - General 1994 Lymphatic neck nodes Overall: anterior cervical chain benign 12/01/2014 None Full Exam - General 1994 Lymphatic neck nodes Overall: posterior cervical chain benign 12/01/2014 None Full Exam - General 1994 Musculoskeletal spine, ribs and pelvis Overall: spine benign 12/01/2014 None Full Exam - General 1994 Musculoskeletal spine, ribs and pelvis Overall: sacroiliac joint benign 12/01/2014 None Full Exam - General 1994 Musculoskeletal spine, ribs and pelvis Overall: good posture 12/01/2014 None Full Exam - General 1994 Musculoskeletal head and neck Overall: head atraumatic 12/01/2014 None Full Exam - General 1994 Musculoskeletal head and neck Overall: cervical spine benign 12/01/2014 None Full Exam - General 1994 Integument inspection of skin Overall: few scattered moles, no gross abnormalities 12/01/2014 None Full Exam - General 1994 Neurologic deep tendon reflexes Overall: deep tendon reflexes intact 12/01/2014 None Full Exam - General 1994 Neurologic cranial nerves Overall: crainial nerves 2 - 12 grossly intact 12/01/2014 None Full Exam - General 1994 Psychiatric orientation/consciousness Overall: oriented to person, place and time 12/01/2014 None Full Exam - General 1994 Psychiatric mood and affect Overall: normal mood and affect 12/01/2014 None Full Exam - General 1994 Ears/Nose/Throat oral cavity/pharynx/larynx Oral mucosa: dry 12/01/2014 None Full Exam - General 1994 Constitutional general appearance Development: well developed 08/14/2014 None Full Exam - General 1994 Constitutional general appearance Development: appears stated age 0608/14/2014 None Full Exam - General 1994 Constitutional general appearance Hygiene/Attention to Grooming: good hygiene 08/14/2014 None Full Exam - General 1994 Eyes conjunctiva /eyelids Overall: conjunctiva clear 08/14/2014 None Full Exam - General 1994 Eyes conjunctiva /eyelids Overall: cornea clear 08/14/2014 None Full Exam - General 1994 Eyes conjunctiva /eyelids Overall: eyelids normal 08/14/2014 None Full Exam - General 1994 Eyes pupils and irises Overall: pupils equal, round, reactive to light and accomodation 08/14/2014 None Full Exam - General 1994 Ears/Nose/Throat otoscopic exam Overall: external auditory canals clear 08/14/2014 None Full Exam - General 1994 Ears/Nose/Throat otoscopic exam Overall: tympanic membranes clear 08/14/2014 None Full Exam - General 1994 Ears/Nose/Throat oral cavity/pharynx/larynx Overall: oral mucosa clear 08/14/2014 None Full Exam - General 1994 Ears/Nose/Throat oral cavity/pharynx/larynx Overall: oropharyngeal mucosa clear 08/14/2014 None Full Exam - General 1994 Ears/Nose/Throat oral cavity/pharynx/larynx Overall: hypopharynx benign 08/14/2014 None Full Exam - General 1994 Ears/Nose/Throat oral cavity/pharynx/larynx Overall: no masses 08/14/2014 None Full Exam - General 1994 Respiratory auscultation Overall: breath sounds clear bilaterally 08/14/2014 None Full Exam - General 1994 Respiratory respiratory effort/rhythm Overall: no retractions 08/14/2014 None Full Exam - General 1994 Respiratory respiratory effort/rhythm Overall: normal rate 08/14/2014 None Full Exam - General 1994 Cardiovascular extremities Overall: no clubbing 08/14/2014 None Full Exam - General 1994 Cardiovascular auscultation of heart Overall: regular rate 08/14/2014 None Full Exam - General 1994 Cardiovascular auscultation of heart Overall: normal heart sounds 08/14/2014 None Full Exam - General 1994 Abdomen abdominal exam Overall: no tenderness 08/14/2014 None Full Exam - General 1994 Abdomen abdominal exam Overall: normal bowel sounds 08/14/2014 None Full Exam - General 1994 Lymphatic neck nodes Overall: anterior cervical chain benign 08/14/2014 None Full Exam - General 1994 Lymphatic neck nodes Overall: posterior cervical chain benign 08/14/2014 None Full Exam - General 1994 Musculoskeletal spine, ribs and pelvis Overall: spine benign 08/14/2014 None Full Exam - General 1994 Musculoskeletal spine, ribs and pelvis Overall: sacroiliac joint benign 08/14/2014 None Full Exam - General 1994 Musculoskeletal spine, ribs and pelvis Overall: good posture 08/14/2014 None Full Exam - General 1994 Musculoskeletal head and neck Overall: head atraumatic 08/14/2014 None Full Exam - General 1994 Musculoskeletal head and neck Overall: cervical spine benign 08/14/2014 None Full Exam - General 1994 Integument inspection of skin Overall: few scattered moles, no gross abnormalities 08/14/2014 None Full Exam - General 1994 Neurologic deep tendon reflexes Overall: deep tendon reflexes intact 08/14/2014 None Full Exam - General 1994 Neurologic cranial nerves Overall: crainial nerves 2 - 12 grossly intact 08/14/2014 None Full Exam - General 1994 Psychiatric orientation/consciousness Overall: oriented to person, place and time 08/14/2014 None Full Exam - General 1994 Psychiatric mood and affect Overall: normal mood and affect 08/14/2014 None Full Exam - General 1994 Ears/Nose/Throat lips/teeth/gingiva Overall: benign lips 08/14/2014 deformity on the left lower jaw Procedures Procedure Codes Date PPPS, SUBSEQ VISIT CPT-4: [id number] 06/2015 TRIAMCINOLONE ACET INJ NOS CPT-4: L6593Ztdhosm ADMIN INFLUENZA VIRUS VAC CPT-4: S3207Cgtwhin FLU VACC 4 GISELA 3 YRS PLUS IM Formatting Model/CDA Sections, Assigned to/Malina Mazariegos CT: [id number] CPT-4: 95117Cfbjotu 11/26/2015 URINALYSIS NONAUTO W/O SCOPE CPT-4: 26383Mtaqvrf URINALYSIS NONAUTO W/O SCOPE CPT-4: 19703Clugvug IMMUNIZATION ADMIN CPT-4: 25791Ierxawa 06/2014 FLU VACC 4 GISELA 3 YRS PLUS IM Formatting Model/CDA Sections, Assigned to/Malina Mazariegos CT: [id number] CPT-4: 29534Zmfxqdq 12/01/2014 Vital Signs Date Vital 08/02/2016 Blood Pressure 1: 160/62 Code : 8480-6 BMI: 25.3 Code : 80693-4 Heart Rate 1 : 67 bpm Height: 5'1" SpO2: 97% Weight: 134 lbs 07/21/2016 Blood Pressure 1: 148/66 Code : 8480-6 BMI: 25.9 Code : 86921-8 Heart Rate 1 : 71 bpm Height: 5'1" SpO2: 97% Temperature: 36.8 (C) / 98.2 (F) Weight: 137 lbs 07/01/2016 Blood Pressure 1: 142/72 Code : 8480-6 BMI: 26.5 Code : 55844-2 Heart Rate 1 : 68 bpm Height: 5'1" SpO2: 94% Weight: 140 lbs 05/16/2016 Blood Pressure 1: 162/76 Code : 8480-6 Blood Pressure 1: 138/68 Code: 8480-6 BMI: 25.7 Code: 79966-8 Heart Rate 1: 58 bpm Height: 5'1" SpO2: 98% Weight: 136 lbs 04/06/2016 Blood Pressure 1: 162/72 Code : 8480-6 Blood Pressure 1: 138/74 Code: 8480-6 BMI: 25.7 Code: 89595-4 Heart Rate 1: 75 bpm Height: 5'1" SpO2: 97% Weight: 136 lbs 03/30/2016 Blood Pressure 1: 188/80 Code : 8480-6 BMI: 26.3 Code : 60921-9 Heart Rate 1 : 75 bpm Height: 5'1" SpO2: 98% Weight: 139 lbs 02/01/2016 Blood Pressure 1: 140/72 Code : 8480-6 BMI: 25.3 Code : 40585-4 Heart Rate 1 : 65 bpm Height: 5'1" SpO2: 97% Waist Measure (cm): 84 cm Weight: 134 lbs 01/25/2016 Blood Pressure 1: 140/74 Code : 8480-6 BMI: 25.1 Code : 83280-9 Heart Rate 1 : 66 bpm Height: 5'1" SpO2: 98% Weight: 133 lbs 12/24/2015 Blood Pressure 1: 142/66 Code : 8480-6 BMI: 24.9 Code : 78007-1 Heart Rate 1 : 54 bpm Height: 5'1" SpO2: 97% Weight: 132 lbs 12/18/2015 Blood Pressure 1: 152/62 Code : 8480-6 BMI: 25.5 Code : 16400-0 Heart Rate 1 : 66 bpm Height: 5'1" SpO2: 96% Weight: 135 lbs 12/11/2015 Blood Pressure 1: 136/54 Code : 8480-6 Heart Rate 1: 72 bpm SpO2: 98% Weight: 137 lbs 11/26/2015 Blood Pressure 1: 142/70 Code : 8480-6 BMI: 25.3 Code : 02773-5 Heart Rate 1 : 64 bpm Height: 5'1" SpO2: 97% Weight: 134 lbs 11/20/2015 Blood Pressure 1: 154/70 Code : 8480-6 Heart Rate 1: 65 bpm SpO2: 98% 10/23/2015 Blood Pressure 1: 138/62 Code : 8480-6 Heart Rate 1: 55 bpm SpO2: 98% 10/21/2015 Blood Pressure 1: 142/68 Code : 8480-6 BMI: 25.7 Code : 24130-4 Heart Rate 1 : 73 bpm Height: 5'1" SpO2: 98% Weight: 136 lbs 07/15/2015 Blood Pressure 1: 130/60 Code : 8480-6 BMI: 26.6 Code : 75668-3 Heart Rate 1 : 70 bpm Height: 5'1" SpO2: 97% Weight: 141 lbs 06/15/2015 Blood Pressure 1: 118/64 Code : 8480-6 BMI: 24.9 Code : 21235-3 Heart Rate 1 : 66 bpm Height: 5'1" SpO2: 99% Weight: 132 lbs 06/05/2015 Blood Pressure 1: 142/60 Code : 8480-6 Blood Pressure 1: 135/58 Code: 8480-6 Heart Rate 1: 64 bpm SpO2: 99% 05/19/2015 Blood Pressure 1: 146/60 Code : 8480-6 BMI: 27.1 Code : 86332-1 Heart Rate 1 : 66 bpm Height: 5'1" SpO2: 97% Weight: 143 lbs 8 oz 04/24/2015 Blood Pressure 1: 148/58 Code : 8480-6 BMI: 25.9 Code : 18179-9 Heart Rate 1 : 61 bpm Height: 5'1" SpO2: 98% Weight: 137 lbs 03/12/2015 Blood Pressure 1: 140/72 Code : 8480-6 BMI: 25.1 Code : 05017-2 Heart Rate 1 : 68 bpm Height: 5'1" SpO2: 98% Weight: 133 lbs 01/12/2015 Blood Pressure 1: 146/60 Code : 8480-6 BMI: 25.7 Code : 71068-1 Heart Rate 1 : 48 bpm Height: 5'1" SpO2: 97% Weight: 136 lbs 12/11/2014 Blood Pressure 1: 144/56 Code : 8480-6 Blood Pressure 1: 125/65 Code: 8480-6 BMI: 25.1 Code: 54000-2 Heart Rate 1: 56 bpm Height: 5'1" SpO2: 96% Weight: 133 lbs 12/01/2014 Blood Pressure 1: 136/60 Code : 8480-6 Heart Rate 1: 56 bpm SpO2: 96% Weight: 131 lbs 5 oz 08/14/2014 Blood Pressure 1: 132/72 Code : 8480-6 BMI: 25.5 Code : 89997-4 Heart Rate 1 : 73 bpm Height: 5'1" SpO2: 94% Weight: 135 lbs Functional Status No Functional Status data History of Present Illness Symptom Name Status Result Effective Date Notes sinus congestion Location frontal sinuses 08/02/2016 None sinus congestion Quality constant 08/02/2016 None sinus congestion Quality fullness 08/02/2016 None sinus congestion Quality pain 08/02/2016 None sinus congestion Quality pressure 08/02/2016 None sinus congestion Onset and Resolution sudden in onset 08/02/2016 None sinus congestion Onset of Symptom 1 weeks ago 08/02/2016 None sinus congestion Frequency of Episodes daily 08/02/2016 None sinus congestion Pertinent Findings cough 08/02/2016 None sinus congestion Pertinent Findings decreased energy level 08/02/2016 None earache Location both ears 08/02/2016 None earache Onset and Resolution gradual in onset 08/02/2016 None earache Onset of Symptom 2 weeks ago 08/02/2016 None earache Frequency of Episodes daily 08/02/2016 None headache Location diffusely 08/02/2016 None headache Quality aching 08/02/2016 None headache Quality pressure 08/02/2016 None headache Onset and Resolution sudden in onset 08/02/2016 1 week headache Onset of Symptom 1 weeks ago 08/02/2016 None headache Frequency of Episodes daily 08/02/2016 None earache Location right ear 07/21/2016 None earache Quality acute 07/21/2016 None earache Onset and Resolution sudden in onset 07/21/2016 None earache Onset of Symptom 1 weeks ago 07/21/2016 None earache Triggers no known triggers 07/21/2016 None earache Severity mild 07/21/2016 None earache Frequency of Episodes decreasing 07/21/2016 None urinary urgency Quality constant 07/01/2016 None urinary urgency Onset and Resolution ongoing 07/01/2016 None urinary urgency Onset of Symptom 1 weeks ago 07/01/2016 None urinary urgency Pertinent Findings bladder pain 07/01/2016 None urinary urgency Pertinent Findings nocturia 07/01/2016 None hypertension Onset and Resolution ongoing 05/16/2016 None hypertension Onset of Symptom during adulthood 05/16/2016 None hypertension Blood Pressure Values not checking blood pressure at home 05/16/2016 None hypertension Alleviating Factors medication 05/16/2016 None hypertension Pertinent Findings Denies dizziness 05/16/2016 None hypertension Pertinent Findings Denies dyspnea 05/16/2016 None hypertension Pertinent Findings Denies edema 05/16/2016 None hypertension Pertinent Findings decreased energy 05/16/2016 None hypertension Exacerbating Factors stress 05/16/2016 None hypertension Quality intermittent 05/16/2016 None hypertension Severity mild 05/16/2016 None wound follow up Date of procedure 201604/06/2016 None wound follow up Additional Comments The patient is doing well. 04/06/2016 None wound follow up Pertinent Findings Denies fever 04/06/2016 None wound follow up Pertinent Findings Denies pain 04/06/2016 None wound follow up Pertinent Findings Denies hematoma 04/06/2016 None wound follow up Pertinent Findings Denies excess swelling 04/06/2016 None wound follow up Pertinent Findings Denies redness around the incision site 04/06/2016 None earache Location right ear 03/30/2016 None earache Quality acute 03/30/2016 None earache Onset and Resolution ongoing 03/30/2016 None earache Onset and Resolution sudden in onset 03/30/2016 None earache Onset of Symptom 1+ weeks ago 03/30/2016 None earache Frequency of Episodes daily 03/30/2016 None sores in the mouth Location mucous membranes 03/30/2016 None sores in the mouth Onset and Resolution sudden in onset 03/30/2016 None sores in the mouth Onset of Symptom 1+ weeks ago 03/30/2016 None sores in the mouth Quality acute 03/30/2016 None sores in the mouth Pertinent Findings Denies fever 03/30/2016 None sores in the mouth Frequency of Episodes decreasing 03/30/2016 None Annual Medicare Wellness Exam Alcohol Use does not drink any alcohol 02/01/2016 None Annual Medicare Wellness Exam Aspirin Use no 02/01/2016 None Annual Medicare Wellness Exam Blood Glucose (self reported) don't know 02/01/2016 None Annual Medicare Wellness Exam Blood Pressure (self reported ) borderline (120/80 - 139/89) 02/01/2016 None Annual Medicare Wellness Exam Cholesterol (self reported) borderline high (200-239) 02/01/2016 None Annual Medicare Wellness Exam Depression (last 6 months) almost never 02/01/2016 None Annual Medicare Wellness Exam Depression or Hopelessness almost never 02/01/2016 None Annual Medicare Wellness Exam Describe Your Health good 02/01/2016 None Annual Medicare Wellness Exam Exercise Habits does not exercise 02/01/2016 None Annual Medicare Wellness Exam Handling Stress usually kirstie effectively 02/01/2016 None Annual Medicare Wellness Exam Hemaglobin A-1C (self reported ) don't know 02/01/2016 None Annual Medicare Wellness Exam Hours of Sleep 6 02/01/2016 None Annual Medicare Wellness Exam Interaction with Friends yes 02/01/2016 None Annual Medicare Wellness Exam Interests & Pleasure some of the time 02/01/2016 None Annual Medicare Wellness Exam Life Satisfaction very satisfied 02/01/2016 None Annual Medicare Wellness Exam Motor Vehicle Safety always fastens seat belt: y 02/01/2016 None Annual Medicare Wellness Exam Motor Vehicle Safety drives after drinking: n 02/01/2016 None Annual Medicare Wellness Exam Motor Vehicle Safety rides with someone who has been drinking: n 2015 None Annual Medicare Wellness Exam Nutrition servings of fried food / high fat foods per day: 0 2015 None Annual Medicare Wellness Exam Nutrition servings of high fiber / whole grain per day: 1 02/01/2016 None Annual Medicare Wellness Exam Nutrition servings of vegetables / fruit per day: 3 02/01/2016 None Annual Medicare Wellness Exam Smoking and Tobacco Use non smoker 02/01/2016 None Annual Medicare Wellness Exam Social & Emotional Support sometimes 02/01/2016 None Annual Medicare Wellness Exam Stress almost never 02/01/2016 None Annual Medicare Wellness Exam Sun Exposure protects skin when outdoors: y 02/01/2016 None earache Location right ear 01/25/2016 None earache Quality acute 01/25/2016 None earache Onset and Resolution sudden in onset 01/25/2016 None earache Onset and Resolution ongoing 01/25/2016 None earache Onset of Symptom 1+ weeks ago 01/25/2016 None earache Frequency of Episodes daily 01/25/2016 None sores in the mouth Onset and Resolution sudden in onset 01/25/2016 None sores in the mouth Onset of Symptom 1+ weeks ago 01/25/2016 None sores in the mouth Quality acute 01/25/2016 None sores in the mouth Location mucous membranes 01/25/2016 None sores in the mouth Pertinent Findings Denies fever 01/25/2016 None hypertension Onset and Resolution ongoing 12/24/2015 None hypertension Onset of Symptom during adulthood 12/24/2015 None hypertension Blood Pressure Values not checking blood pressure at home 12/24/2015 None hypertension Alleviating Factors medication 12/24/2015 None hypertension Pertinent Findings Denies dizziness 12/24/2015 None hypertension Pertinent Findings Denies dyspnea 12/24/2015 None hypertension Pertinent Findings Denies edema 12/24/2015 None nasal allergies Location in both nares 12/24/2015 None nasal allergies Onset and Resolution ongoing 12/24/2015 None nasal allergies Onset of Symptom years ago 12/24/2015 None nasal allergies Triggers season change 12/24/2015 None cough Location in the throat 12/18/2015 None cough Quality constant 12/18/2015 None cough Quality hacking 12/18/2015 None cough Onset and Resolution sudden in onset 12/18/2015 None cough Onset of Symptom 2 weeks ago 12/18/2015 None sinus congestion Onset and Resolution sudden in onset 12/18/2015 None sinus congestion Onset of Symptom 1 weeks ago 12/18/2015 None headache Location diffusely 12/18/2015 None headache Quality aching 12/18/2015 None headache Onset and Resolution sudden in onset 12/18/2015 None headache Onset of Symptom 1 weeks ago 12/18/2015 None hypertension Onset and Resolution ongoing 11/26/2015 None hypertension Onset of Symptom during adulthood 11/26/2015 None hypertension Blood Pressure Values not checking blood pressure at home 11/26/2015 None hypertension Alleviating Factors medication 11/26/2015 None hypertension Pertinent Findings Denies dizziness 11/26/2015 None hypertension Pertinent Findings Denies dyspnea 11/26/2015 None hypertension Pertinent Findings Denies edema 11/26/2015 None abnormal test results Abnormal Indicator abnormal 11/26/2015 None skin lesion Location on the lower lip 10/21/2015 None skin lesion Onset and Resolution sudden in onset 10/21/2015 None skin lesion Onset of Symptom 2 days ago 10/21/2015 None hypertension Quality intermittent 06/15/2015 None hypertension Onset and Resolution ongoing 06/15/2015 None hypertension Blood Pressure Values not checking blood pressure at home 06/15/2015 None hypertension Severity mild 06/15/2015 None hypertension Pertinent Findings dizziness 06/15/2015 None hypertension Pertinent Findings Denies dyspnea 06/15/2015 None hypertension Alleviating Factors medication 06/15/2015 None hyperlipidemia Onset and Resolution ongoing 06/15/2015 None hyperlipidemia Onset of Symptom during adulthood 06/15/2015 None hyperlipidemia Alleviating Factors medication 06/15/2015 None hyperlipidemia Exacerbating Factors diet 06/15/2015 None abnormal test results Detailed Test Result(s) mammogram 05/19/2015 None abnormal test results Test Performed _ hours ago 05/19/2015 None abnormal test results Type of Test(s) mammography 05/19/2015 None cough Location in the throat 04/24/2015 None cough Quality dry None cough Onset and Resolution sudden in onset 04/24/2015 None cough Onset of Symptom 1 days ago 04/24/2015 None cough Frequency of Episodes daily 04/24/2015 None cough Pertinent Findings chest discomfort 04/24/2015 None cough Pertinent Findings hoarseness 04/24/2015 None cough Pertinent Findings nasal congestion 04/24/2015 None sinus congestion Location on both sides 04/24/2015 None sinus congestion Quality pressure 04/24/2015 None sinus congestion Onset and Resolution sudden in onset 04/24/2015 None sinus congestion Onset of Symptom 1 days ago 04/24/2015 None sinus congestion Frequency of Episodes daily 04/24/2015 None sinus congestion Pertinent Findings cough 04/24/2015 None sinus congestion Pertinent Findings hoarseness 04/24/2015 None earache Location both ears 04/24/2015 None earache Onset and Resolution sudden in onset 04/24/2015 None earache Onset of Symptom 1 days ago 04/24/2015 None hypertension Quality intermittent 03/12/2015 None hypertension Onset and Resolution ongoing 03/12/2015 None hypertension Blood Pressure Values not checking blood pressure at home 03/12/2015 None hypertension Pertinent Findings Denies dizziness 03/12/2015 None hypertension Pertinent Findings Denies dyspnea 03/12/2015 None hypertension Severity mild 03/12/2015 None edema Onset and Resolution gradual in onset 01/12/2015 None edema Onset of Symptom 6 months ago 01/12/2015 None edema Limitation on Activities does not limit activities 01/12/2015 None edema Frequency of Episodes daily 01/12/2015 None oral pain Location diffusely 01/12/2015 None oral pain Quality burning 01/12/2015 None oral pain Quality dull 01/12/2015 None oral pain Onset and Resolution gradual in onset 01/12/2015 None oral pain Onset of Symptom 3 weeks ago 01/12/2015 None oral pain Limitation on Activities does not limit oral intake 01/12/2015 None oral pain Frequency of Episodes daily 01/12/2015 None bone pain Onset of Symptom 1 weeks ago 12/11/2014 None bone pain Exacerbating Factors activity 12/11/2014 None bone pain Location on the right ankle 12/11/2014 None bone pain Quality aching 12/11/2014 None _ Onset and Resolution improved during the day 12/01/2014 - dry, irritated, white discharge in mouth - pt brushes it out in the morning - _ Onset of Symptom 4 days ago 12/01/2014 states it is not painful _ Location buccal areas of cheek 12/01/2014 None sinus congestion Quality improving 08/14/2014 None sinus congestion Onset of Symptom 4 days ago 08/14/2014 None sinus congestion Severity mild 08/14/2014 None sinus congestion Pertinent Findings fever 08/14/2014 low-grade Advance Directives No Advance Directive data Encounters Encounter Performer Location Codes Date 61318 EST. PATIENT, LEVEL III Diagnosis: Other acute sinusitis[ICD10: J01.80] Diagnosis: Other allergic rhinitis[ICD10: J30.89] Diagnosis: Otalgia, bilateral[ICD10: H92.03] [facility] CPT -4: 76779 08/02/2016 ([id number]) 18039 EST. PATIENT, LEVEL III Diagnosis: Acute recurrent maxillary sinusitis[ICD10: J01.01] Diagnosis: Otalgia, right ear[ICD10: H92.01] [facility] CPT-4: 78786 07/21/2016 [id number] EST. PATIENT, LEVEL III Diagnosis: Dysuria[ICD10: R30.0] Diagnosis: Other allergic rhinitis[ICD10: J30.89] Evelyn Cohen MD, [facility] CPT-4: 41049 07/01/2016 ([id number]) 52262 EST. PATIENT, LEVEL IV Diagnosis: Essential (primary) hypertension[ICD10: I10] Diagnosis: Mixed hyperlipidemia[ICD10: E78.2] Berenice Cohen MD, [facility] CPT-4: 78487 05/16/2016 19825 EST. PATIENT, LEVEL III Diagnosis: Mixed hyperlipidemia[ICD10: E78.2] Diagnosis: Essential (primary) hypertension[ICD10: I10] Diagnosis: Laceration without foreign body of left hand, subsequent encounter[ ICD10: S61.412D] Evelyn Cohen MD, [facility] CPT-4: 69641 04/06/2016 ([id number]) 79048 EST. PATIENT, LEVEL III Diagnosis: Essential (primary) hypertension[ICD10: I10] Berenice Cohen MD, [facility] CPT-4: 50598 03/30/2016 ([id number]) 84305 EST. 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 PATIENT, LEVEL III Diagnosis: Essential (primary) hypertension[ICD10: I10] Berenice Cohen MD, [facility] CPT-4: 51277 12/24/2015 41561 EST. PATIENT, LEVEL III Diagnosis: Other acute sinusitis[ICD10: J01.80] Diagnosis: Other allergic rhinitis[ICD10: J30.89] Evelyn Cohen MD, [facility] CPT-4: 38489 12/18/2015 ([id number]) Miscellaneous no charge Diagnosis: Essential (primary) hypertension[ICD10: I10] Evelyn Cohen MD, [facility] CPT-4: 33687 12/11/2015 ([id number]) 39831 EST. PATIENT, LEVEL IV Diagnosis: Essential (primary) hypertension[ICD10: I10] Diagnosis: Other abnormal glucose[ICD10: R73.09] Diagnosis: Encounter for immunization[ICD10: Z23] Berenice Cohen MD, [facility] CPT-4: 87558 11/26/2015 ([id number]) Miscellaneous no charge Diagnosis: Bitten by dog, initial encounter[ICD10: W54.0XXA] Evelyn Cohen MD [facility] CPT-4: 75391 10/29/2015 ([id number]) Miscellaneous no charge Diagnosis: Essential (primary) hypertension[ICD10: I10] Diagnosis: Bitten by dog, initial encounter[ICD10: W54.0XXA] Evelyn Cohen MD [facility] CPT-4: 43377 10/23/2015 71191 EST. PATIENT, LEVEL III Diagnosis: Cellulitis of face[ICD10: L03.211] Diagnosis: Bitten by dog, initial encounter[ICD10: W54.0XXA] Evelyn Cohen MD, [facility] CPT-4: 32243 10/21/2015 ([id number]) Miscellaneous no charge Diagnosis: Essential (primary) hypertension[ICD10: I10] Evelyn Cohen MD [facility] CPT-4: 91172 07/15/2015 ([id number]) 69746 EST. PATIENT, LEVEL IV Diagnosis: Essential (primary) hypertension[ICD10: I10] Diagnosis: Mixed hyperlipidemia[ICD10: E78.2] Diagnosis: Dry mouth, unspecified[ICD10: R68.2] Berenice Cohen MD, [facility] CPT-4: 41159 06/15/2015 ([id number]) Miscellaneous no charge Diagnosis: Essential (primary) hypertension[ICD10: I10] Doris Cohen MD [facility] CPT-4: 57303 06/05/2015 ([id number]) 08887 EST. PATIENT, LEVEL IV Diagnosis: Mammographic microcalcification found on diagnostic imaging of breast [ICD10: R92.0] Diagnosis: Edema, unspecified[ICD10: R60.9] Diagnosis: Essential (primary) hypertension[ICD10: I10] Berenice Cohen MD, [facility] CPT-4: 29270 05/19/2015 25109 EST. PATIENT, LEVEL IV Diagnosis: Other acute sinusitis[ICD10: J01.80] Diagnosis: Acute nasopharyngitis [common cold][ICD10: J00] Diagnosis: Other allergic rhinitis[ICD10: J30.89] Diagnosis: Localized edema[ICD10: R60.0] Diagnosis: Mixed hyperlipidemia[ICD10: E78.2] Evelyn Cohen MD, [facility] CPT-4: 00636 04/24/2015 ([id number]) 03369 EST. PATIENT, LEVEL IV Diagnosis: Essential (primary) hypertension[ICD10: I10] Diagnosis: Abscess of liver[ICD10: K75.0] Diagnosis: Anemia, unspecified[ICD10: D64.9] Berenice Cohen MD, [facility] CPT-4: 72026 03/12/2015 99426 EST. PATIENT, LEVEL IV Diagnosis: Essential (primary) hypertension[ICD10: I10] Diagnosis: Candidal stomatitis[ICD10: B37.0] Diagnosis: Pain in unspecified knee[ICD10: M25.569] Diagnosis: Edema, unspecified[ICD10: R60.9] Evelyn Cohen MD, [facility] CPT- 4: 35261 01/12/2015 ([id number]) 64876 EST. PATIENT, LEVEL III Diagnosis: Pain in right foot[ICD10: M79.671] Berenice Cohen MD [facility] CPT-4: 17141 12/11/2014 ([id number]) 07726 EST. PATIENT, LEVEL IV Diagnosis: Abscess of liver[ICD10: K75.0] Diagnosis: Hypo-osmolality and hyponatremia[ICD10: E87.1] Diagnosis: Essential (primary) hypertension[ICD10: I10] Diagnosis: VACCIN FOR INFLUENZA[ICD10: Z23] Berenice Cohen MD, [facility] CPT-4: 49732 12/01/2014 ([id number]) OFFICE VISIT, NEW - LEVEL 4 Diagnosis: ESSENTIAL HYPERTENSION[ICD9: 401.9] Diagnosis: Chronic maxillary sinusitis[ICD9: 473.0] Berenice Cohen MD, [facility] CPT-4: 62507 08/14/2014 Plan of Care Planned Activity Notes Codes Status Date Visit Plan: Allergies - chronic - recommended pt to use allergy medication as prescribed. Pt has been counseled as to the appropriate use of the medication. Pt to call if allergy symptoms are not controlled with the medication.Sinusitis - Pt has follow up appointment with Dr. Cheney - pain in face, maxillary region, Pt informed to use decongestant, sinus rinses also recommended. Call if symptoms do not show improvement. 08/02/2016 Appointment: Evelyn West WPtel: [phone] [facility] (30 min) Complex 08/02/2016 Patient Education: Patient Medication Summary Completed 08/02/2016 Appointment: Nurse Visit 07/27/2016 Visit Plan: Sinusitis - Pt has acute infection - pain in face, maxillary region , Pt informed to use decongestant, RX given to patient, sinus rinses also recommended. Call if symptoms do not show improvement.Earache-finish ear drops- start abx for sinus infection-return in 1 week for follow up and to have ear flushed 07/21/2016 Appointment: Doris Sheffield WPtel: [phone] [phone] (15 min) Moderate 07/21/2016 Patient Education: Patient Medication Summary Completed 07/21/2016 Visit Plan: Allergies - chronic - recommended pt to use allergy medication as prescribed. Pt has been counseled as to the appropriate use of the medication. Pt to call if allergy symptoms are not controlled with the medication.If using nasal spray, instructions as follows: Nasal spray- use twice daily, one spray per nostril twice daily, after 30 minutes, rinse out nose with saline spray.. Use opposite hand per nostril to spray in the nasal steroid allergy spray.UTI - symptoms improving - will extend RX - pt is to notify clinic is symptoms do not improve, if they worsen, or with any questions or concerns. 07/01/2016 Patient Education: Patient Medication Summary Completed 07/01/2016 Appointment: Lab Draw 06/24/2016 Patient Education: Patient Medication Summary Completed 06/24/2016 Visit Plan: Hypertension - well controlled - continue with current medications , continue with no added salt diet. Pt has been encouraged to exercise daily.The pt has been advised to call the office if there are any acute concerns about change in blood pressure readings at home.Hyperlipidemia - pt has been counseled about appropriate diet, exercise, and need for low fat food choices. I have discussed the need for the patient to take medications as prescribed. If the patient has negative side effects from the medication, they are to CALL the office and not abruptly discontinue the medication without discussion with a practitioner in the office. We will check labs in 3-6 months for follow up on the patient's chronic medical problem and to assure normal liver response to medications.Restart the lipitor at 10mg nightly. 05/16/2016 App[facility]ment: [phone] (15 min) Moderate 05/16/2016 Patient Education: Patient Medication Summary Completed 05/16/2016 Visit Plan: Hypertension - continue with current medications, continue with no added salt diet. Pt has been encouraged to exercise daily.The pt has been advised to call the office if there are any acute concerns about change in blood pressure readings at home.Hyperlipidemia - pt has been counseled about appropriate diet, exercise, and need for low fat food choices. I have discussed the need for the patient to take medications as prescribed. If the patient has negative side effects from the medication, they are to CALL the office and not abruptly discontinue the medication without discussion with a practitioner in the office. We will check labs in 3-6 months for follow up on the patient's chronic medical problem and to assure normal liver response to medications.Follow up on finger laceration - healing well, no erythema, warmth, or drainage noted. Pt is notify clinic with any questions or concerns. 2016 Appointment: [phone] [id number] (10 min) Simple 04/06/2016 Patient Education: Patient Medication Summary Completed 04/06/2016 Patient Education: Hypertension Completed 04/06/2016 Visit Plan: Hypertension - uncontrolled - the patient's medications have been modified as documented in the visit note. The patient has been counseled to cut back on salt in diet for a no added salt diet, low fat diet, start an exercise program with low weight bearing exercises and higher aerobic activity for heart health. The patient is to check blood pressure readings as an outpatient and either fax, call, or email the readings to the office next week for practitioner to review.The pt is to call for acute concerns.increase the amlodipine to 10mg daily - use two of your current amlodipine and then when your current supply of medication is done, then fill the new RX for 10mg of amlodipine.Skin lesion of mouthuse the bactroban cream on the skin twice daily. 03/30/2016 Appointment: Berenice Cohen WPtel: [address] [place], [place] [phone] (15 min) Moderate 03/30/2016 Patient Education: Patient Medication Summary Completed 03/30/2016 Appointment: Berenice Cohen WPtel: [address] [place], [place] [phone] (15 min) Moderate 03/24/2016 Visit Plan: Medicare Exam - today we discussed the patients past history, immunizations, preventative exams/evaluations - colonoscopy, fecal occult blood testing, routine labs for renal function, glucose, cholesterol, osteoporosis evaluations, cardiovascular testing and cancer screenings. We have also discussed mental health and the signs/symptoms of depression. The patient was advised of home safety evaluations and the need to make sure that as the aging process continues, we need to be aware of different ways to make the home a safer place to reside. The patient has also been counseled that exercise is necessary - and of utmost importance as we age to help decrease fall risk and to maintain independece in the home.Today we discussed the need for the patient to create paperwork for Advanced directives as well as for the patient to provide this office with a copy of her DOPA paperwork for health care surrogate. 02/01/2016 Appointment: Evelyn West WPtel: [address] [place], [place] [phone] [facility] - Annual Wellness Visit 02/01/2016 Patient Education: Patient Medication Summary Completed 02/01/2016 Visit Plan: Apthous ulcer - rx for acyclovir 800mg tid x7 daysSample of Voltaren gel to use on knees tid prn 01/25/2016 Appointment: Berenice Cohen WPtel: [address] [place], [place] [phone] (15 min) Moderate 01/25/2016 Patient Education: Patient Medication Summary Completed 01/25/2016 Visit Plan: Hypertension - well controlled - continue with current medications , continue with no added salt diet. Pt has been encouraged to exercise daily.The pt has been advised to call the office if there are any acute concerns about change in blood pressure readings at home. 12/24/2015 Appointment: Berenice Cohen WPtel: [address] [place], [place] [phone] (15 min) Moderate 12/24/2015 Patient Education: Patient Medication Summary Completed 12/24/2015 Visit Plan: Allergies - chronic - recommended pt to use allergy medication as prescribed. Pt has been counseled as to the appropriate use of the medication. Pt to call if allergy symptoms are not controlled with the medication.If using nasal spray, instructions as follows: Nasal spray- use twice daily, one spray per nostril twice daily, after 30 minutes, rinse out nose with saline spray.. Use opposite hand per nostril to spray in the nasal steroid allergy spray.Sinusitis - Pt has acute infection - pain in face, maxillary region, Pt informed to use decongestant, RX given to patient, sinus rinses also recommended. Call if symptoms do not show improvement. 12/18/2015 Appointment: Doris Sheffield WPtel: [facility] [place][note 2][phone] (15 min) Moderate 12/18/2015 Patient Education: Patient Medication Summary Completed 12/18/2015 Appointment: Nurse Visit 12/11/2015 Patient Education: Patient Medication Summary Completed 12/11/2015 Visit Plan: Hypertension - well controlled - continue with current medications , continue with no added salt diet. Pt has been encouraged to exercise daily.The pt has been advised to call the office if there are any acute concerns about change in blood pressure readings at home.Elevated glucose - recommended pt to check blood glucose levels as follows:Vary the times that you are checking your blood glucose levels - check your blood glucose at least TWO hours after a meal - 11/26/2015 Appointment: Berenice Cohen WPtel: [facility] [place][note 2]5 [facility] (15 min) Moderate 11/26/2015 Patient Education: Patient Medication Summary Completed 11/26/2015 Appointment: Nurse Visit 11/20/2015 Appointment: Nurse Visit 11/20/2015 Patient Education: Patient Medication Summary Completed 11/20/2015 Appointment: Lab Draw 11/13/2015 Patient Education: Patient Medication Summary Completed 11/13/2015 Care Plan: Urine Culture Pending 11/13/2015 Appointment: Nurse Visit 10/29/2015 Patient Education: Patient Medication Summary Completed 10/29/2015 Appointment: Nurse Visit 10/23/2015 Patient Education: Patient Medication Summary Completed 10/23/2015 Visit Plan: Cellulitis - The patient was instructed in appropriate wound care. The patient was instructed to use the antibiotic ointment as per RX. The patient is to call for any change in symptoms, increase in size of the lesion, increase in pain. 10/21/2015 Appointment: Doris Sheffield WPtel: [phone] [phone] [place] (15 min) Moderate 10/21/2015 Patient Education: Patient Medication Summary Completed 10/21/2015 Appointment: Nurse Visit 07/15/2015 Patient Education: Patient Medication Summary Completed 07/15/2015 Visit Plan: Hypertension - well controlled - continue with current medications , continue with no added salt diet. Pt has been encouraged to exercise daily.The pt has been advised to call the office if there are any acute concerns about change in blood pressure readings at home.Hyperlipidemia - pt unable to tolerate statin or zetia. continue with low fat diet. Increase activity.Dry mouth - pt again recommended to start on Biotene.centrum silver for women or a One a day for women - and STILL take the vitamin D3 5000 units daily.increase water intakekidney function is stableliver enzymes are normalcholesterol improved a littlered blood cells and white blood cells are fine.BIOTENE mouth spray 06/15/2015 Appointment: [phone] [facility] [place] (15 min) Moderate 06/15/2015 Patient Education: Patient Medication Summary Completed 06/15/2015 Patient Education: Patient Medication Summary Completed 06/12/2015 Appointment: Berenice Cohen WPtel: [facility] [place]note 2][facility] (15 min) Moderate 06/11/2015 Appointment: Nurse Visit 06/05/2015 Patient Education: Patient Medication Summary Completed 06/05/2015 Patient Education: Hypertension Completed 06/05/2015 Visit Plan: Hypertension - uncontrolled - the patient's medications have been modified as documented in the visit note. The patient has been counseled to cut back on salt in diet for a no added salt diet, low fat diet, start an exercise program with low weight bearing exercises and higher aerobic activity for heart health. The patient is to check blood pressure readings as an outpatient and either fax, call, or email the readings to the office next week for practitioner to review.The pt is to call for acute concerns.DECREASE THE AMLODIPINE TO 1 PILL DAILY.START ON VALSARTAN 160MG DAILYRETURN TO THE OFFICE FOR A BLOOD PRESSURE CHECK IN 2 WEEKSKEEP LEGS ELEVATED WHEN SEATEDEdema - should improve with the medication change of decrease of amlodipine, may end up stopping the amlodipine all together due to her significant edema.Mammographic abnormality - will follow recommendations by Radiologist and wait 6 months for repeat mammogram. Order given to staff today for the mammogram in 6 months. Patient Education: Patient Medication Summary Completed 05/19/2015 Patient Education: Hypertension Completed 05/19/2015 Visit Plan: Allergies - chronic - recommended pt to use allergy medication as prescribed. Pt has been counseled as to the appropriate use of the medication. Pt to call if allergy symptoms are not controlled with the medication.URI - Pt advised to increase fluids, vitamin C. Discussed natural and expected course of this diagnosis and need to alert me if symptoms do not follow expected course, or if any worse. RX sent to patient's pharmacy.Edema - pt has been advised to elevate legs to prevent dependent edema, compression has been recommended to help to naturally decrease peripheral edema. Diuretic use has been discussed and pt has been instructed in appropriate use of such medication as necessary to further attempt to reduce peripheral edema.Hyperlipidemia - pt has been counseled about appropriate diet, exercise, and need for low fat food choices. We will check labs in 3-6 months for follow up on the patient's chronic medical problem and to assure normal liver response to medications. 04/24/2015 Appointment: (30 min) Complex 04/24/2015 Patient Education: Patient Medication Summary Completed 04/24/2015 Visit Plan: Hypertension - uncontrolled - the patient's medications have been modified as documented in the visit note. The patient has been counseled to cut back on salt in diet for a no added salt diet, low fat diet, start an exercise program with low weight bearing exercises and higher aerobic activity for heart health. The patient is to check blood pressure readings as an outpatient and either fax, call, or email the readings to the office next week for practitioner to review.The pt is to call for acute concerns.HX of liver abscess - check lft's and cbc.Dry mouth - start biotene mouth wash and mouth spray prn during the day 03/12/2015 Appointment: [facility]Ptel[facility] [phone] [facility] (15 min) Moderate 03/12/2015 Patient Education: Patient Medication Summary Completed 03/12/2015 Patient Education: Hypertension Completed 03/12/2015 Visit Plan: Hypertension - well controlled - continue with current medications , continue with no added salt diet. Pt has been encouraged to exercise daily.The pt has been advised to call the office if there are any acute concerns about change in blood pressure readings at home.Knee pain - Pt sees ortho specialist for chronic knee problems, states that she has an appointment with then soon. Pt to try [place] rub on the knees to help reduce inflammation. Edema - pt has been advised to elevate legs to prevent dependent edema, compression has been recommended to help to naturally decrease peripheral edema. Diuretic use has been discussed and pt has been instructed in appropriate use of such medication as necessary to further attempt to reduce peripheral edema.Thrush - Pt has nystatin swish and swallow at home, Pt states that she was not taking this medication because she cannot take statin cholesterol medication. Education given to patient to start nystatin swish and swallow. Pt to stop medication if she notices any side effects or allergic type reactions. 01/12/2015 Appointment: (15 min) Moderate 01/12/2015 Patient Education: Patient Medication Summary Completed 01/12/2015 Patient Education: Hypertension Completed 01/12/2015 Visit Plan: No fracture of foot - recommended pt to use aspercreme to the foot where it is sore 12/11/2014 Appointment: Berenice Cohen WPtel: [facility] [place]note 2][facility] [place] (15 min) Moderate 12/11/2014 Patient Education: Patient Medication Summary Completed 12/11/2014 Visit Plan: Hypertension - well controlled - continue with current medications , continue with no added salt diet. Pt has been encouraged to exercise daily.The pt has been advised to call the office if there are any acute concerns about change in blood pressure readings at home.Hepatic abscess - pt to have follow up on the patient's liver profile, check labs today.Dry mouth - pt to start on biotene mouth wash/biotene toothpaste and call if symptoms of mouth discomfort not improving. 12/01/2014 Appointment: Berenice Cohen WPtel: [phone] [id number] (15 min) Moderate 12/01/2014 Patient Education: Patient Medication Summary Completed 12/01/2014 Patient Education: Hypertension Completed 12/01/2014 Appointment: Berenice Cohen WPtel: [facility] [place][note 2]5 [facility] (15 min) Moderate 09/15/2014 Visit Plan: Hypertension - well controlled - continue with current medications , continue with no added salt diet. Pt has been encouraged to exercise daily.The pt has been advised to call the office if there are any acute concerns about change in blood pressure readings at home.Chronic sinusitis with acute flair - recommended keflex, and antifungal therapy - pt has sustained surgery and radiation therapy to her face - the patient is to call if symptoms do not improve. 08/14/2014 Appointment: Berenice Cohen WPtel: [facility] [place][note 2]5 [facility] [place] ([place]) New Patient 08/14/2014 Patient Education: Patient Medication Summary Completed 08/14/2014 Patient Education: Hypertension Completed 08/14/2014 Instructions Comment increase the amlodipine to 10mg daily - use two of your current amlodipine and then when your current supply of medication is done, then fill the new RX for 10mg of amlodipine. use the bactroban cream on the skin twice daily. . Hypertension - uncontrolled - the patient's medications have been modified as documented in the visit note. The patient has been counseled to cut back on salt in diet for a no added salt diet, low fat diet, start an exercise program with low weight bearing exercises and higher aerobic activity for heart health. The patient is to check blood pressure readings as an outpatient and either fax , call, or email the readings to the office next week for practitioner to review. The pt is to call for acute concerns. increase the amlodipine to 10mg daily - use two of your current amlodipine and then when your current supply of medication is done, then fill the new RX for 10mg of amlodipine. Skin lesion of mouth use the bactroban cream on the skin twice daily. . Allergies - chronic - recommended pt to use allergy medication as prescribed. Pt has been counseled as to the appropriate use of the medication. Pt to call if allergy symptoms are not controlled with the medication. If using nasal spray, instructions as follows: Nasal spray- use twice daily, one spray per nostril twice daily, after 30 minutes, rinse out nose with saline spray.. Use opposite hand per nostril to spray in the nasal steroid allergy spray. UTI - symptoms improving - will extend RX - pt is to notify clinic is symptoms do not improve, if they worsen, or with any questions or concerns. . Apthous ulcer - rx for acyclovir 800mg tid x7 days Sample of Voltaren gel to use on knees tid prn Start srinivasa daily increase fluids, vitamin C elevate legs to prevent dependent swelling, compression has been recommended to help to naturally decrease peripheral edema Low salt diet Low fat, low cholesterol diet. . Allergies - chronic - recommended pt to use allergy medication as prescribed. Pt has been counseled as to the appropriate use of the medication. Pt to call if allergy symptoms are not controlled with the medication. URI - Pt advised to increase fluids, vitamin C. Discussed natural and expected course of this diagnosis and need to alert me if symptoms do not follow expected course, or if any worse. RX sent to patient's pharmacy. Edema - pt has been advised to elevate legs to prevent dependent edema, compression has been recommended to help to naturally decrease peripheral edema. Diuretic use has been discussed and pt has been instructed in appropriate use of such medication as necessary to further attempt to reduce peripheral edema. Hyperlipidemia - pt has been counseled about appropriate diet, exercise, and need for low fat food choices. We will check labs in 3-6 months for follow up on the patient's chronic medical problem and to assure normal liver response to medications. . Hypertension - well controlled - continue with current medications, continue with no added salt diet. Pt has been encouraged to exercise daily. The pt has been advised to call the office if there are any acute concerns about change in blood pressure readings at home. Hepatic abscess - pt to have follow up on the patient's liver profile, check labs today. Dry mouth - pt to start on biotene mouth wash/biotene toothpaste and call if symptoms of mouth discomfort not improving. change the amlodipine to one pill twice daily get BIOTENE mouth spray for moisture of the mouth - this should help improve the dry mouth and you can use this as often as you would like. . Hypertension - uncontrolled - the patient's medications have been modified as documented in the visit note. The patient has been counseled to cut back on salt in diet for a no added salt diet, low fat diet, start an exercise program with low weight bearing exercises and higher aerobic activity for heart health. The patient is to check blood pressure readings as an outpatient and either fax , call, or email the readings to the office next week for practitioner to review. The pt is to call for acute concerns. HX of liver abscess - check lft's and cbc. Dry mouth - start biotene mouth wash and mouth spray prn during the day No fracture of foot - recommended pt to use aspercreme to the foot where it is sore [employer] special tax auditor will contact you for a colon screen test - it is a colon cancer screening that you will do at home and send in to the special tax auditor. . No fracture of foot - recommended pt to use aspercreme to the foot where it is sore . Hypertension - continue with current medications, continue with no added salt diet. Pt has been encouraged to exercise daily. The pt has been advised to call the office if there are any acute concerns about change in blood pressure readings at home. Hyperlipidemia - pt has been counseled about appropriate diet, exercise, and need for low fat food choices. I have discussed the need for the patient to take medications as prescribed. If the patient has negative side effects from the medication, they are to CALL the office and not abruptly discontinue the medication without discussion with a practitioner in the office. We will check labs in 3-6 months for follow up on the patient's chronic medical problem and to assure normal liver response to medications. Follow up on finger laceration - healing well, no erythema, warmth, or drainage noted. Pt is notify clinic with any questions or concerns. DECREASE THE AMLODIPINE TO 1 PILL DAILY. START ON VALSARTAN 160MG DAILY RETURN TO THE OFFICE FOR A BLOOD PRESSURE CHECK IN 2 WEEKS KEEP LEGS ELEVATED WHEN SEATED . Hypertension - uncontrolled - the patient's medications have been modified as documented in the visit note. The patient has been counseled to cut back on salt in diet for a no added salt diet, low fat diet, start an exercise program with low weight bearing exercises and higher aerobic activity for heart health. The patient is to check blood pressure readings as an outpatient and either fax , call, or email the readings to the office next week for practitioner to review. The pt is to call for acute concerns. DECREASE THE AMLODIPINE TO 1 PILL DAILY. START ON VALSARTAN 160MG DAILY RETURN TO THE OFFICE FOR A BLOOD PRESSURE CHECK IN 2 WEEKS KEEP LEGS ELEVATED WHEN SEATED Edema - should improve with the medication change of decrease of amlodipine, may end up stopping the amlodipine all together due to her significant edema. Mammographic abnormality - will follow recommendations by Radiologist and wait 6 months for repeat mammogram. Order given to staff today for the mammogram in 6 months. . Hypertension - well controlled - continue with current medications, continue with no added salt diet. Pt has been encouraged to exercise daily. The pt has been advised to call the office if there are any acute concerns about change in blood pressure readings at home. . Medicare Exam - today we discussed the patients past history, immunizations, preventative exams/evaluations - colonoscopy, fecal occult blood testing, routine labs for renal function, glucose, cholesterol, osteoporosis evaluations, cardiovascular testing and cancer screenings. We have also discussed mental health and the signs/symptoms of depression. The patient was advised of home safety evaluations and the need to make sure that as the aging process continues, we need to be aware of different ways to make the home a safer place to reside. The patient has also been counseled that exercise is necessary - and of utmost importance as we age to help decrease fall risk and to maintain independece in the home. Today we discussed the need for the patient to create paperwork for Advanced directives as well as for the patient to provide this office with a copy of her [employer]OP[employer] paperwork for health care surrogate. Vary the times that you are checking your blood glucose levels - check your blood glucose at least TWO hours after a meal - . Hypertension - well controlled - continue with current medications, continue with no added salt diet. Pt has been encouraged to exercise daily. The pt has been advised to call the office if there are any acute concerns about change in blood pressure readings at home. Elevated glucose - recommended pt to check blood glucose levels as follows: Vary the times that you are checking your blood glucose levels - check your blood glucose at least TWO hours after a meal - try [place] on your knee. Decrease Salt in diet. Raise legs when sitting. Use compression stockings for swelling. Weigh yourself every morning. Use nystatin swish and swallow. . Hypertension - well controlled - continue with current medications, continue with no added salt diet. Pt has been encouraged to exercise daily. The pt has been advised to call the office if there are any acute concerns about change in blood pressure readings at home. Knee pain - Pt sees ortho specialist for chronic knee problems, states that she has an appointment with then soon. Pt to try [place] rub on the knees to help reduce inflammation. Edema - pt has been advised to elevate legs to prevent dependent edema, compression has been recommended to help to naturally decrease peripheral edema. Diuretic use has been discussed and pt has been instructed in appropriate use of such medication as necessary to further attempt to reduce peripheral edema. Thrush - Pt has nystatin swish and swallow at home, Pt states that she was not taking this medication because she cannot take statin cholesterol medication. Education given to patient to start nystatin swish and swallow. Pt to stop medication if she notices any side effects or allergic type reactions. . Allergies - chronic - recommended pt to use allergy medication as prescribed. Pt has been counseled as to the appropriate use of the medication. Pt to call if allergy symptoms are not controlled with the medication. Sinusitis - Pt has follow up appointment with Dr. Cheney - pain in face, maxillary region, Pt informed to use decongestant, sinus rinses also recommended. Call if symptoms do not show improvement. co-enzyme Q10 - Qunol - take daily - this may help to decrease the muscle aches that you can get from cholesterol medication.. Hypertension - well controlled - continue with current medications, continue with no added salt diet. Pt has been encouraged to exercise daily. The pt has been advised to call the office if there are any acute concerns about change in blood pressure readings at home. Hyperlipidemia - pt has been counseled about appropriate diet, exercise, and need for low fat food choices. I have discussed the need for the patient to take medications as prescribed. If the patient has negative side effects from the medication, they are to CALL the office and not abruptly discontinue the medication without discussion with a practitioner in the office. We will check labs in 3-6 months for follow up on the patient's chronic medical problem and to assure normal liver response to medications. Restart the lipitor at 10mg nightly. centrum silver for women or a One a day for women - and STILL take the vitamin D3 5000 units daily. increase water intake kidney function is stable liver enzymes are normal cholesterol improved a little red blood cells and white blood cells are fine. BIOTENE mouth spray . Hypertension - well controlled - continue with current medications, continue with no added salt diet. Pt has been encouraged to exercise daily. The pt has been advised to call the office if there are any acute concerns about change in blood pressure readings at home. Hyperlipidemia - pt unable to tolerate statin or zetia. continue with low fat diet. Increase activity. Dry mouth - pt again recommended to start on Biotene. centrum silver for women or a One a day for women - and STILL take the vitamin D3 5000 units daily. increase water intake kidney function is stable liver enzymes are normal cholesterol improved a little red blood cells and white blood cells are fine. BIOTENE mouth spray . Hypertension - well controlled - continue with current medications, continue with no added salt diet. Pt has been encouraged to exercise daily. The pt has been advised to call the office if there are any acute concerns about change in blood pressure readings at home. Chronic sinusitis with acute flair - recommended keflex, and antifungal therapy - pt has sustained surgery and radiation therapy to her face - the patient is to call if symptoms do not improve. . Allergies - chronic - recommended pt to use allergy medication as prescribed. Pt has been counseled as to the appropriate use of the medication. Pt to call if allergy symptoms are not controlled with the medication. If using nasal spray, instructions as follows: Nasal spray- use twice daily, one spray per nostril twice daily, after 30 minutes, rinse out nose with saline spray.. Use opposite hand per nostril to spray in the nasal steroid allergy spray. Sinusitis - Pt has acute infection - pain in face, maxillary region, Pt informed to use decongestant, RX given to patient, sinus rinses also recommended. Call if symptoms do not show improvement. RETURN IN 1 WEEK FOR EAR FLUSHING . Sinusitis - Pt has acute infection - pain in face, maxillary region, Pt informed to use decongestant, RX given to patient, sinus rinses also recommended. Call if symptoms do not show improvement. Earache-finish ear drops-start abx for sinus infection-return in 1 week for follow up and to have ear flushed . Cellulitis - The patient was instructed in appropriate wound care. The patient was instructed to use the antibiotic ointment as per RX. The patient is to call for any change in symptoms, increase in size of the lesion, increase in pain.
--- OUTSIDE RECORDS SUMMARY | 2018-06-30 13:47 | XMS REPORT | CCD ---
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 Unknown Unknown Family history Son Diagnosis Age [...] Unknown Retired 08/14/[address]: 709167328 Never smoker 08/14/[address]: 053465428 Never drinks alcohol 08/14/2014 Allergies, Adverse Reactions, Alerts Substance Reaction Codes Entered Date Inactivated Date Status AUGMENTIN hives RxNorm: 885207 08/14/2014 No Inactive Date Active MLMAPMT-SSR-DZQ REDUCTASE INHIBITORS myalgias Unknown 2015 No Inactive [...] Fill Instructions guaifenesin 400 mg tablet RxNorm: 292389 1 Tablet(s) PO BID as needed 08/04/2016 No Stop Date Active cefdinir 300 mg capsule RxNorm: 301763 1 Capsule(s) PO BID started by Dr. Davila 08/04/2016 08/13/2016 Active amlodipine 10 mg tablet RxNorm: 823043 1 Tablet(s) PO daily 07/201607/27/2017 Active Keflex 500 mg capsule RxNorm: 926979 1 Capsule(s) PO TID 201607/27/2016 Inactive Xanax 0.25 mg tablet RxNorm: 507336 1 Tablet(s) PO TID as needed anxiety 07/01/2016 08/27/2016 Active Zyrtec 10 mg tablet RxNorm: 1572894 1 Tablet(s) PO daily 07/0107/30/2016 Inactive amlodipine 5 mg tablet RxNorm: 061217 1 Tablet(s) PO daily 06/201607/30/2016 Inactive Keflex 500 mg capsule RxNorm: 707152 1 Capsule(s) PO TID 201607/03/2016 Inactive Keflex 500 mg capsule RxNorm: 203215 1 Capsule(s) PO TID 201606/23/2016 Inactive Keflex 500 mg capsule RxNorm: 447754 1 Capsule(s) PO TID 201606/30/2016 Inactive Flonase Allergy Relief 50 mcg/actuation nasal spray, suspension RxNorm: 3984947 USE ONE SPRAY(S) IN EACH NOSTRIL TWICE DAILY 06/20/2016 05/15/2017 Active amlodipine 10 mg tablet RxNorm: 808381 1 Tablet(s) PO daily 04/201606/28/2016 Inactive Lipitor 10 mg tablet RxNorm: 753730 1 Tablet(s) PO QHS 201609/12/2016 Active Flonase Allergy Relief 50 mcg/actuation nasal spray, suspension RxNorm: 5267437 USE ONE SPRAY(S) IN EACH NOSTRIL TWICE DAILY 04/18/2016 05/17/2016 Inactive cephalexin 500 mg capsule RxNorm: 142700 1 Capsule(s) PO TID 04/05/2016 Inactive take with probiotics BID amlodipine 10 mg tablet RxNorm: 275791 1 Tablet(s) PO daily 02/201605/29/2016 Inactive Bactroban 2 % topical cream RxNorm: 141664 1 Application TOP BID 03/30/2016 04/08/2016 Inactive Zithromax Z-Dylan 250 mg tablet RxNorm: 484874 1 Tablet(s) PO UD 03/10/2016 05/15/2016 Inactive z pack as directed Keflex 500 mg capsule RxNorm: 850611 1 Capsule(s) PO TID 201502/25/2016 Inactive take with probiotics BID acyclovir 800 mg tablet RxNorm: 074388 1 Tablet(s) PO TID 01/2402/21/2016 Inactive Zithromax Z-Dylan 250 mg tablet RxNorm: 524255 1 Tablet(s) PO UD 01/19/2016 01/24/2016 Inactive z pack Flonase Allergy Relief 50 mcg/actuation nasal spray, suspension RxNorm: 7856925 USE ONE SPRAY(S) IN EACH NOSTRIL TWICE DAILY 12/28/2015 02/25/2016 Inactive Kenalog 40 mg/mL suspension for injection RxNorm: 1869327 Milliliter(s) Inj 12/18/2015 12/18/2015 Inactive Keflex 500 mg capsule RxNorm: 459282 1 Capsule(s) PO TID 201512/24/2015 Inactive meclizine 25 mg tablet RxNorm: 023675 1 Tablet(s) PO TID as needed 12/09/2015 02/26/2016 Inactive Zithromax Z-Dylan 250 mg tablet RxNorm: 104169 1 Tablet(s) PO UD 12/09/2015 12/23/2015 Inactive z pack meclizine 25 mg tablet RxNorm: 555163 1 Tablet(s) PO TID as needed 12/09/2015 12/08/2015 Inactive Keflex 500 mg capsule RxNorm: 638035 1 Capsule(s) PO TID 201511/22/2015 Inactive Cipro 500 mg tablet RxNorm: 845446 1 Tablet(s) PO BID 201511/13/2015 Inactive Keflex 500 mg capsule RxNorm: 992189 1 Capsule(s) PO TID 201510/30/2015 Inactive Xanax 0.25 mg tablet RxNorm: 103509 1 Tablet(s) PO TID as needed anxiety 09/18/2015 11/13/2015 Inactive Keflex 500 mg capsule RxNorm: 894800 1 Capsule(s) PO TID 201508/19/2015 Inactive losartan 50 mg tablet RxNorm: 141579 1 Tablet(s) PO daily 201507/07/2015 Inactive Pepcid 20 mg tablet RxNorm: 032943 1 Tablet(s) PO BID 201507/07/2015 Inactive Pepcid 20 mg tablet RxNorm: 482566 1 Tablet(s) PO BID 201501/31/2016 Inactive losartan 50 mg tablet RxNorm: 550147 1 Tablet(s) PO daily 201501/31/2016 Inactive prednisone 20 mg tablet RxNorm: 227492 2 Tablet(s) PO daily 06/22/2015 Inactive prednisone 20 mg tablet RxNorm: 966102 2 Tablet(s) PO daily 12/23/2015 Inactive Diflucan 100 mg tablet RxNorm: 707021 TAKE ONE TABLET BY MOUTH ONCE DAILY 06/12/2015 12/23/2015 Inactive Zithromax Z-Dylan 250 mg tablet RxNorm: 727695 1 Tablet(s) PO UD 06/05/2015 07/06/2015 Inactive z pack amlodipine 5 mg tablet RxNorm: 962774 1 Tablet(s) PO daily 03/29/2016 Inactive Zetia 10 mg tablet RxNorm: 216574 1 Tablet(s) PO daily 201506/14/2015 Inactive valsartan 160 mg tablet RxNorm: 411150 1 Tablet(s) PO daily 07/07/2015 Inactive Lipitor 10 mg tablet RxNorm: 514288 1 Tablet(s) PO QHS 201505/18/2015 Inactive Lipitor 10 mg tablet RxNorm: 533477 1 Tablet(s) PO QHS 201504/27/2015 Inactive Zithromax 250 mg tablet RxNorm: 415755 Tablet(s) PO UD 201504/28/2015 Inactive Keflex 500 mg capsule RxNorm: 675412 1 Capsule(s) PO TID 201503/22/2015 Inactive Keflex 500 mg capsule RxNorm: 056024 1 Capsule(s) PO TID 201504/01/2015 Inactive Xanax 0.25 mg tablet RxNorm: 969377 1 Tablet(s) PO TID as needed anxiety 03/12/2015 07/04/2016 Inactive carvedilol 25 mg tablet RxNorm: 327065 1 Tablet(s) PO BID 03/1201/31/2016 Inactive amlodipine 5 mg tablet RxNorm: 548327 1 Tablet(s) PO BID 201505/18/2015 Inactive Diflucan 100 mg tablet RxNorm: 163448 1 Tablet(s) PO daily 03/21/2015 Inactive Diflucan 100 mg tablet RxNorm: 930819 1 Tablet(s) PO daily 02/14/2015 Inactive Diflucan 100 mg tablet RxNorm: 350572 1 Tablet(s) PO daily 06/201401/05/2015 Inactive Diflucan 100 mg tablet RxNorm: 445801 1 Tablet(s) PO daily 06/201412/31/2014 Inactive nystatin 100,000 unit/mL oral suspension RxNorm: 858642 5 Milliliter(s) PO QID 12/24/2014 06/14/2015 Inactive nystatin 100,000 unit/mL oral suspension RxNorm: 728517 5 Milliliter(s) PO QID 12/24/2014 12/23/2014 Inactive Zithromax 250 mg tablet RxNorm: 881865 1 Tablet(s) PO daily 12/19/2014 Inactive Zithromax 250 mg tablet RxNorm: 132719 1 Tablet(s) PO daily 12/14/2014 Inactive Flonase Allergy Relief 50 mcg/actuation nasal spray, suspension RxNorm: 1 [place] NASAL BID 12/11/2014 12/10/2014 Inactive Flonase Allergy Relief 50 mcg/actuation nasal spray, suspension RxNorm: 3771670 1 [place] NASAL BID 12/11/20142015 Inactive amlodipine 5 mg tablet RxNorm: 239731 2 Tablet(s) PO daily 11/13/2014 Inactive amlodipine 5 mg tablet RxNorm: 696157 2 Tablet(s) PO daily 03/11/2015 Inactive Lotrisone 1 %-0.05 % topical cream RxNorm: 871888 1 TOP BID until healed 10/17/2014 10/30/2014 Inactive Lotrisone 1 %-0.05 % topical cream RxNorm: 301478 1 TOP BID until healed 10/16/2014 10/16/2014 Inactive Lotrisone 1 %-0.05 % topical cream RxNorm: 043578 1 TOP BID until healed 10/06/2014 10/15/2014 Inactive Keflex 500 mg capsule RxNorm: 848528 1 Capsule(s) PO TID 201408/11/2014 Inactive Keflex 500 mg capsule RxNorm: 353575 1 Capsule(s) PO TID 201408/18/2014 Inactive clotrimazole 1 % topical solution RxNorm: 104406 1 Drop(s) TOP BID No Start Date Active Vitamin D3 5,000 unit tablet RxNorm: 225952 1 Tablet(s) PO daily No Start Date Active aspirin 81 mg tablet RxNorm: 272595 1 Tablet(s) PO daily No Start Date Active guaifenesin 400 mg tablet RxNorm: 655634 1 Tablet(s) PO BID as needed No Start Date 08/03/2016 Inactive Lotrisone 1 %-0.05 % topical cream RxNorm: 588335 1 TOP BID until healed No Start Date 10/05/2014 Inactive lisinopril 40 mg tablet RxNorm: 047533 1 Tablet(s) PO daily No Start Date 05/18/2015 Inactive amlodipine 5 mg tablet RxNorm: 958866 1 Tablet(s) PO daily No Start Date 11/13/2014 Inactive indapamide 1.25 mg tablet RxNorm: 161865 1 Tablet(s) PO daily No Start Date 01/31/2016 Inactive Medication Administered Medication Codes Instructions Start Date Status Kenalog 40 mg/mL suspension for injection RxNorm: 6931920 Milliliter 12/18/2015 No longer Active Immunizations Vaccine [...] 31.3 pg 04/12/2016 Cbc With Differential Ord2 [place]% 13.3 % 04/12/2016 Cbc With Differential Ord2 [...] 2.85 K/ul 04/12/2016 Cbc With Differential Ord2 [place] ABS# 1.1 K/ul 04/12/2016 Cbc With Differential Ord2 Eos ABS# 0.1 K/ul 04/12/2016 Cbc With Differential Ord2 Baso ABS# 0.0 K/ul 04/12/2016 Comp Metabolic Jip569 NA 129 mEq/L 04/12/2016 Comp Metabolic Smy343 K 4.0 mEq/L 04/12/2016 Comp Metabolic Nvf489 CL 93 mEq/L 04/12/2016 Comp Metabolic Vjv990 CO2 29.0 mEq/L 04/12/2016 Comp Metabolic Cbr284 ANION GAP 11 04/12/2016 Comp Metabolic Sfo046 GLUCOSE 100 mg/dL 04/12/2016 Comp Metabolic Ndw311 Creat 1.0 mg/dL 04/12/2016 Comp Metabolic Kxh030 eGFR 55 ml/min/1.73m2 04/12/2016 Comp Metabolic Lzj306 BUN 19 mg/dL 04/12/2016 Comp Metabolic Hfr042 B/C Ratio 18.8 Ratio 04/12/2016 Comp Metabolic Jbq883 CALCIUM 9.3 mg/dL 04/12/2016 Comp Metabolic Zbc680 ALK PHOS 38 U/L 04/12/2016 Comp Metabolic Rnv227 AST(SGOT) 17 U/L 04/12/2016 Comp Metabolic Won666 ALT(SGPT) 11 U/L 04/12/2016 Comp Metabolic Cnh595 BILI T 1.0 mg/dL 04/12/2016 Comp Metabolic Mkk240 ALBUMIN 4.2 g/dL 04/12/2016 Comp Metabolic Rfl753 TPRO 6.6 g/dL 04/12/2016 Comp Metabolic Lqn317 GLOB 2.4 g/dL 04/12/2016 Comp Metabolic Pgq244 A/G Ratio 1.8 Ratio 04/12/2016 Comp Metabolic Nhr195 Osmo 261 mOsmo 04/12/2016 Lipid Ord30 CHOL 265 mg/dL 04/12/2016 Lipid Ord30 HDL 42.0 mg/dl 04/12/2016 Lipid Ord30 TRIG 246 mg/dL 04/12/2016 Lipid Ord30 LDL 174 mg/dL 04/12/2016 Lipid Ord30 C/HDL 6.3 Ratio 04/12/2016 Tsh Ord6 hTSH II 2.49 uIU/mL 04/12/2016 Tsh Ord6 hTSH II 1.83 uIU/mL 06/12/2015 Comp Metabolic Bly741 NA 137 mEq/L 06/12/2015 Comp Metabolic Frz865 K 4.4 mEq/L 06/12/2015 Comp Metabolic Vos102 CL 103 mEq/L 06/12/2015 Comp Metabolic Zga075 CO2 27.0 mEq/L 06/12/2015 Comp Metabolic Tni895 ANION GAP 11 06/12/2015 Comp Metabolic Ply112 GLUCOSE 87 mg/dL 06/12/2015 Comp Metabolic Oqn573 Creat 1.3 mg/dL 06/12/2015 Comp Metabolic Dwf150 eGFR 43 ml/min/1.73m2 06/12/2015 Comp Metabolic Tus948 BUN 32 mg/dL 06/12/2015 Comp Metabolic Ilf410 B/C Ratio 25.4 Ratio 06/12/2015 Comp Metabolic Kue312 CALCIUM 9.5 mg/dL 06/12/2015 Comp Metabolic Pzl322 ALK PHOS 36 U/L 06/12/2015 Comp Metabolic Ros122 AST(SGOT) 16 U/L 06/12/2015 Comp Metabolic Cbx694 ALT(SGPT) 17 U/L 06/12/2015 Comp Metabolic Tae250 BILI T 1.0 mg/dL 06/12/2015 Comp Metabolic Cki854 ALBUMIN 4.1 g/dL 06/12/2015 Comp Metabolic Ntu994 TPRO 6.5 g/dL 06/12/2015 Comp Metabolic Pnl137 GLOB 2.5 g/dL 06/12/2015 Comp Metabolic Kuv814 A/G Ratio 1.7 Ratio 06/12/2015 Comp Metabolic Sqn058 Osmo 280 mOsmo 06/12/2015 Lipid Ord30 CHOL [...] 30.6 pg 06/12/2015 Cbc With Differential Ord2 [place]% 11.0 % 06/12/2015 Cbc With Differential Ord2 [...] 1.96 K/ul 06/12/2015 Cbc With Differential Ord2 [place] ABS# 0.9 K/ul 06/12/2015 Cbc With Differential [...] 30.3 pg 03/12/2015 Cbc With Differential Ord2 [place]% 10.7 % 03/12/2015 Cbc With Differential Ord2 [...] 2.00 K/ul 03/12/2015 Cbc With Differential Ord2 [place] ABS# 1.0 K/ul 03/12/2015 Cbc With Differential Ord2 Eos ABS# 0.1 K/ul 03/12/2015 Cbc With Differential Ord2 Baso ABS# 0.0 K/ul 03/12/2015 Cbc With Differential Ord2 New Analyzer Notice Please note new ref ranges starting 03-11-2015 due to implemntation of new five part differential hematolgy analyzer. 03/12/2015 Comp Metabolic Gfq774 NA 139 mEq/L 03/12/2015 Comp Metabolic Wvk788 K 4.2 mEq/L 03/12/2015 Comp Metabolic Ock142 CL 101 mEq/L 03/12/2015 Comp Metabolic Pub884 CO2 28.0 mEq/L 03/12/2015 Comp Metabolic Ref676 ANION GAP 14 03/12/2015 Comp Metabolic Rjz217 GLUCOSE 78 mg/dL 03/12/2015 Comp Metabolic Xen102 Creat 1.1 mg/dL 03/12/2015 Comp Metabolic Tzj017 eGFR 51 ml/min/1.73m2 03/12/2015 Comp Metabolic Msk580 BUN 17 mg/dL 03/12/2015 Comp Metabolic Msq445 B/C Ratio 15.6 Ratio 03/12/2015 Comp Metabolic Xbc968 CALCIUM 9.4 mg/dL 03/12/2015 Comp Metabolic Kng688 ALK PHOS 46 U/L 03/12/2015 Comp Metabolic Xnl299 AST(SGOT) 16 U/L 03/12/2015 Comp Metabolic Dyj464 ALT(SGPT) 12 U/L 03/12/2015 Comp Metabolic Dqr046 BILI T 0.8 mg/dL 03/12/2015 Comp Metabolic Rvo541 ALBUMIN 4.1 g/dL 03/12/2015 Comp Metabolic Lyy553 TPRO 6.6 g/dL 03/12/2015 Comp Metabolic Hkb983 GLOB 2.6 g/dL 03/12/2015 Comp Metabolic Awc673 A/G Ratio 1.6 Ratio 03/12/2015 Comp Metabolic Qeb658 Osmo 278 mOsmo 03/12/2015 Lipid Ord30 CHOL [...] hTSH II 3.15 uIU/mL 12/01/2014 Comp Metabolic Zdg667 NA 132 mEq/L 12/01/2014 Comp Metabolic Fdj136 K 4.4 mEq/L 12/01/2014 Comp Metabolic Xzm305 CL 99 mEq/L 12/01/2014 Comp Metabolic Lvq298 CO2 27.0 mEq/L 12/01/2014 Comp Metabolic Kfe978 ANION GAP 10 12/01/2014 Comp Metabolic Bpt780 GLUCOSE 86 mg/dL 12/01/2014 Comp Metabolic Ehe852 Creat 1.2 mg/dL 12/01/2014 Comp Metabolic Cpv556 eGFR 46 ml/min/1.73m2 12/01/2014 Comp Metabolic Wsx633 BUN 32 mg/dL 12/01/2014 Comp Metabolic Pee727 B/C Ratio 27.1 Ratio 12/01/2014 Comp Metabolic Mjv501 CALCIUM 9.4 mg/dL 12/01/2014 Comp Metabolic Xbu114 ALK PHOS 35 U/L 12/01/2014 Comp Metabolic Par172 AST(SGOT) 14 U/L 12/01/2014 Comp Metabolic Ptn765 ALT(SGPT) 13 U/L 12/01/2014 Comp Metabolic Zjo700 BILI T 0.8 mg/dL 12/01/2014 Comp Metabolic Pfv074 ALBUMIN 4.0 g/dL 12/01/2014 Comp Metabolic Nxb863 TPRO 6.8 g/dL 12/01/2014 Comp Metabolic Kam798 GLOB 2.8 g/dL 12/01/2014 Comp Metabolic Ubd925 A/G Ratio 1.4 Ratio 12/01/2014 Comp Metabolic Zqe368 Osmo 271 mOsmo 12/01/2014 Review of Systems [...] Procedure Codes Date PPPS, SUBSEQ VISIT CPT-4: M6991Utlithv 06/2015 TRIAMCINOLONE ACET INJ NOS CPT-4: J8821Hyiqyvz ADMIN INFLUENZA VIRUS VAC CPT-4: P9708Sekfwuk FLU VACC 4 GISELA 3 YRS PLUS IM Formatting Model/CDA Sections, Assigned to/Malina Mazariegos CT: [id number] CPT-4: 56693Zxyomsv 11/26/2015 URINALYSIS NONAUTO W/O SCOPE CPT-4: 56697Fptgodf URINALYSIS NONAUTO W/O SCOPE CPT-4: 01538Vpytewk IMMUNIZATION ADMIN CPT-4: 78106Jgvjnav 06/2014 FLU VACC 4 GISELA 3 YRS PLUS IM Formatting Model/CDA Sections, Assigned to/Malina Mazariegos CT: [id number] CPT-4: 97430Ubywskz 12/01/2014 Vital Signs Date Vital 08/02/2016 Blood Pressure 1: 160/62 Code : 8480-6 BMI: 25.3 Code : 82603-8 Heart Rate 1 : 67 bpm Height: 5'1" SpO2: 97% Weight: 134 lbs 07/21/2016 Blood Pressure 1: 148/66 Code : 8480-6 BMI: 25.9 Code : 13710-1 Heart Rate 1 : 71 bpm Height: 5'1" SpO2: 97% Temperature: 36.8 (C) / 98.2 (F) Weight: 137 lbs 07/01/2016 Blood Pressure 1: 142/72 Code : 8480-6 BMI: 26.5 Code : 51691-3 Heart Rate 1 : 68 bpm Height: 5'1" SpO2: 94% Weight: 140 lbs 05/16/2016 Blood Pressure 1: 162/76 Code : 8480-6 Blood Pressure 1: 138/68 Code: 8480-6 BMI: 25.7 Code: 77720-4 Heart Rate 1: 58 bpm Height: 5'1" SpO2: 98% Weight: 136 lbs 04/06/2016 Blood Pressure 1: 162/72 Code : 8480-6 Blood Pressure 1: 138/74 Code: 8480-6 BMI: 25.7 Code: 36791-2 Heart Rate 1: 75 bpm Height: 5'1" SpO2: 97% Weight: 136 lbs 03/30/2016 Blood Pressure 1: 188/80 Code : 8480-6 BMI: 26.3 Code : 02166-3 Heart Rate 1 : 75 bpm Height: 5'1" SpO2: 98% Weight: 139 lbs 02/01/2016 Blood Pressure 1: 140/72 Code : 8480-6 BMI: 25.3 Code : 49251-6 Heart Rate 1 : 65 bpm Height: 5'1" SpO2: 97% Waist Measure (cm): 84 cm Weight: 134 lbs 01/25/2016 Blood Pressure 1: 140/74 Code : 8480-6 BMI: 25.1 Code : 25957-9 Heart Rate 1 : 66 bpm Height: 5'1" SpO2: 98% Weight: 133 lbs 12/24/2015 Blood Pressure 1: 142/66 Code : 8480-6 BMI: 24.9 Code : 15382-2 Heart Rate 1 : 54 bpm Height: 5'1" SpO2: 97% Weight: 132 lbs 12/18/2015 Blood Pressure 1: 152/62 Code : 8480-6 BMI: 25.5 Code : 78204-4 Heart Rate 1 : 66 bpm Height: 5'1" SpO2: 96% Weight: 135 lbs 12/11/2015 Blood Pressure 1: 136/54 Code : 8480-6 Heart Rate 1: 72 bpm SpO2: 98% Weight: 137 lbs 11/26/2015 Blood Pressure 1: 142/70 Code : 8480-6 BMI: 25.3 Code : 02601-3 Heart Rate 1 : 64 bpm Height: 5'1" SpO2: 97% Weight: 134 lbs 11/20/2015 Blood Pressure 1: 154/70 Code : 8480-6 Heart Rate 1: 65 bpm SpO2: 98% 10/23/2015 Blood Pressure 1: 138/62 Code : 8480-6 Heart Rate 1: 55 bpm SpO2: 98% 10/21/2015 Blood Pressure 1: 142/68 Code : 8480-6 BMI: 25.7 Code : 10921-0 Heart Rate 1 : 73 bpm Height: 5'1" SpO2: 98% Weight: 136 lbs 07/15/2015 Blood Pressure 1: 130/60 Code : 8480-6 BMI: 26.6 Code : 43914-1 Heart Rate 1 : 70 bpm Height: 5'1" SpO2: 97% Weight: 141 lbs 06/15/2015 Blood Pressure 1: 118/64 Code : 8480-6 BMI: 24.9 Code : 36369-4 Heart Rate 1 : 66 bpm Height: 5'1" SpO2: 99% Weight: 132 lbs 06/05/2015 Blood Pressure 1: 142/60 Code : 8480-6 Blood Pressure 1: 135/58 Code: 8480-6 Heart Rate 1: 64 bpm SpO2: 99% 05/19/2015 Blood Pressure 1: 146/60 Code : 8480-6 BMI: 27.1 Code : 39361-1 Heart Rate 1 : 66 bpm Height: 5'1" SpO2: 97% Weight: 143 lbs 8 oz 04/24/2015 Blood Pressure 1: 148/58 Code : 8480-6 BMI: 25.9 Code : 14422-6 Heart Rate 1 : 61 bpm Height: 5'1" SpO2: 98% Weight: 137 lbs 03/12/2015 Blood Pressure 1: 140/72 Code : 8480-6 BMI: 25.1 Code : 42204-7 Heart Rate 1 : 68 bpm Height: 5'1" SpO2: 98% Weight: 133 lbs 01/12/2015 Blood Pressure 1: 146/60 Code : 8480-6 BMI: 25.7 Code : 37966-1 Heart Rate 1 : 48 bpm Height: 5'1" SpO2: 97% Weight: 136 lbs 12/11/2014 Blood Pressure 1: 144/56 Code : 8480-6 Blood Pressure 1: 125/65 Code: 8480-6 BMI: 25.1 Code: 45088-5 Heart Rate 1: 56 bpm Height: 5'1" SpO2: 96% Weight: 133 lbs 12/01/2014 Blood Pressure 1: 136/60 Code : 8480-6 Heart Rate 1: 56 bpm SpO2: 96% Weight: 131 lbs 5 oz 08/14/2014 Blood Pressure 1: 132/72 Code : 8480-6 BMI: 25.5 Code : 87301-3 Heart Rate 1 : 73 bpm Height: [...] data Encounters Encounter Performer Location Codes Date 09390 EST. PATIENT, LEVEL III Diagnosis: Other acute sinusitis[ICD10: J01.80] Diagnosis: Other allergic rhinitis[ICD10: J30.89] Diagnosis: Otalgia, bilateral[ICD10: H92.03] [facility] CPT -4: 91192 08/02/2016 ([id number]) 99256 EST. PATIENT, LEVEL III Diagnosis: Acute recurrent maxillary sinusitis[ICD10: J01.01] Diagnosis: Otalgia, right ear[ICD10: H92.01] [facility] CPT-4: 68311 07/21/2016 [id number] EST. PATIENT, LEVEL III Diagnosis: Dysuria[ICD10: R30.0] Diagnosis: Other allergic rhinitis[ICD10: J30.89] Evelyn Cohen MD, [facility] CPT-4: 78919 07/01/2016 ([id number]) 93037 EST. PATIENT, LEVEL IV Diagnosis: Essential (primary) hypertension[ICD10: I10] Diagnosis: Mixed hyperlipidemia[ICD10: E78.2] Berenice Cohen MD, [facility] CPT-4: 45174 05/16/2016 [id number] EST. PATIENT, LEVEL III Diagnosis: Mixed hyperlipidemia[ICD10: E78.2] Diagnosis: Essential (primary) hypertension[ICD10: I10] Diagnosis: Laceration without foreign body of left hand, subsequent encounter[ ICD10: S61.412D] Evelyn Cohen MD, [facility] CPT-4: 48863 04/06/2016 ([id number]) 38419 EST. PATIENT, LEVEL III Diagnosis: Essential (primary) hypertension[ICD10: I10] Berenice Cohen MD, [facility] CPT-4: 72756 03/30/2016 ([id number]) 41944 EST. 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 PATIENT, LEVEL III Diagnosis: Essential (primary) hypertension[ICD10: I10] Berenice Cohen MD, [facility] CPT-4: 45373 12/24/2015 [id number] EST. PATIENT, LEVEL III Diagnosis: Other acute sinusitis[ICD10: J01.80] Diagnosis: Other allergic rhinitis[ICD10: J30.89] Evelyn Cohen MD, [facility] CPT-4: 07147 12/18/2015 ([id number]) Miscellaneous no charge Diagnosis: Essential (primary) hypertension[ICD10: I10] Evelyn Cohen MD, [facility] CPT-4: 21133 12/11/2015 ([id number]) 60637 EST. PATIENT, LEVEL IV Diagnosis: Essential (primary) hypertension[ICD10: I10] Diagnosis: Other abnormal glucose[ICD10: R73.09] Diagnosis: Encounter for immunization[ICD10: Z23] Berenice Cohen MD, [facility] CPT-4: 80730 11/26/2015 ([id number]) Miscellaneous no charge Diagnosis: Bitten by dog, initial encounter[ICD10: W54.0XXA] Evelyn Cohen MD [facility] CPT-4: 35651 10/29/2015 ([id number]) Miscellaneous no charge Diagnosis: Essential (primary) hypertension[ICD10: I10] Diagnosis: Bitten by dog, initial encounter[ICD10: W54.0XXA] Evelyn Cohen MD [facility] CPT-4: 03258 10/23/2015 [id number] EST. PATIENT, LEVEL III Diagnosis: Cellulitis of face[ICD10: L03.211] Diagnosis: Bitten by dog, initial encounter[ICD10: W54.0XXA] Evelyn Cohen MD, [facility] CPT-4: 51886 10/21/2015 ([id number]) Miscellaneous no charge Diagnosis: Essential (primary) hypertension[ICD10: I10] Evelyn Cohen MD [facility] CPT-4: 35050 07/15/2015 ([id number]) 73049 EST. PATIENT, LEVEL IV Diagnosis: Essential (primary) hypertension[ICD10: I10] Diagnosis: Mixed hyperlipidemia[ICD10: E78.2] Diagnosis: Dry mouth, unspecified[ICD10: R68.2] Berenice Cohen MD, [facility] CPT-4: 67015 06/15/2015 ([id number]) Miscellaneous no charge Diagnosis: Essential (primary) hypertension[ICD10: I10] Doris Cohen MD [facility] CPT-4: 88682 06/05/2015 ([id number]) 26731 EST. PATIENT, LEVEL IV Diagnosis: Mammographic microcalcification found on diagnostic imaging of breast [ICD10: R92.0] Diagnosis: Edema, unspecified[ICD10: R60.9] Diagnosis: Essential (primary) hypertension[ICD10: I10] Berenice Cohen MD, [facility] CPT-4: 90461 05/19/2015 [id number] EST. PATIENT, LEVEL IV Diagnosis: Other acute sinusitis[ICD10: J01.80] Diagnosis: Acute nasopharyngitis [common cold][ICD10: J00] Diagnosis: Other allergic rhinitis[ICD10: J30.89] Diagnosis: Localized edema[ICD10: R60.0] Diagnosis: Mixed hyperlipidemia[ICD10: E78.2] Evelyn Cohen MD, [facility] CPT-4: 79779 04/24/2015 ([id number]) 04140 EST. PATIENT, LEVEL IV Diagnosis: Essential (primary) hypertension[ICD10: I10] Diagnosis: Abscess of liver[ICD10: K75.0] Diagnosis: Anemia, unspecified[ICD10: D64.9] Berenice Cohen MD, [facility] CPT-4: 44922 03/12/2015 [id number] EST. PATIENT, LEVEL IV Diagnosis: Essential (primary) hypertension[ICD10: I10] Diagnosis: Candidal stomatitis[ICD10: B37.0] Diagnosis: Pain in unspecified knee[ICD10: M25.569] Diagnosis: Edema, unspecified[ICD10: R60.9] Evelyn Cohen MD, [facility] CPT- 4: 27006 01/12/2015 ([id number]) 68609 EST. PATIENT, LEVEL III Diagnosis: Pain in right foot[ICD10: M79.671] Berenice Cohen MD [facility] CPT-4: 43420 12/11/2014 ([id number]) [id number] EST. PATIENT, LEVEL IV Diagnosis: Abscess of liver[ICD10: K75.0] Diagnosis: Hypo-osmolality and hyponatremia[ICD10: E87.1] Diagnosis: Essential (primary) hypertension[ICD10: I10] Diagnosis: VACCIN FOR INFLUENZA[ICD10: Z23] Berenice Cohen MD, [facility] CPT-4: 35247 12/01/2014 ([id number]) OFFICE VISIT, NEW - LEVEL 4 Diagnosis: ESSENTIAL HYPERTENSION[ICD9: 401.9] Diagnosis: Chronic maxillary sinusitis[ICD9: 473.0] Berenice Cohen MD, [facility] CPT-4: 30858 08/14/2014 Plan of Care Planned Activity Notes [...] show improvement. 08/02/2016 Appointment: Evelyn West WPtel: [phone] [id number] (30 min) Complex 08/02/2016 Patient Education: Patient [...] ear flushed 07/21/2016 Appointment: Doris Sheffield WPtel: [phone] [phone] (15 min) Moderate 07/21/2016 Patient Education: Patient [...] 10mg nightly. 05/16/2016 [phone] ([facility] min) Moderate 05/16/2016 Patient Education: Patient [...] any questions or concerns. 2016 [phone] (10 min) Simple 04/06/2016 Patient Education: Patient [...] twice daily. 03/30/2016 Appointment: Berenice Cohen WPtel: [address] [place], [place] [phone] (15 min) Moderate 03/30/2016 Patient Education: Patient Medication Summary Completed 03/30/2016 Appointment: Berenice Cohen WPtel: [address] [place], [place] [phone] (15 min) Moderate 03/24/2016 Visit Plan: Medicare [...] care surrogate. 02/01/2016 Appointment: Evelyn West WPtel: [address] [place], [place] [phone] [facility] - Annual Wellness Visit 02/01/2016 Patient Education: Patient Medication Summary Completed 02/01/2016 Visit Plan: Apthous ulcer - rx for acyclovir 800mg tid x7 daysSample of Voltaren gel to use on knees tid prn 01/25/2016 Appointment: Berenice Cohen WPtel: [address] [place], [place] [phone] (15 min) Moderate 01/25/2016 Patient Education: Patient Medication Summary Completed 01/25/2016 Visit Plan: Hypertension - well controlled - continue with current medications , continue with no added salt diet. Pt has been encouraged to exercise daily.The pt has been advised to call the office if there are any acute concerns about change in blood pressure readings at home. 12/24/2015 Appointment: Berenice Cohen WPtel: [address] [place], [place] [phone] (15 min) Moderate 12/24/2015 Patient Education: Patient [...] show improvement. 12/18/2015 Appointment: Doris Sheffield WPtel: [phone] (15 min) Moderate 12/18/2015 Patient Education: Patient [...] meal - 11/26/2015 Appointment: Berenice Cohen WPtel: [facility]5 [facility] (15 min) Moderate 11/26/2015 Patient Education: Patient [...] pain. 10/21/2015 Appointment: Doris Sheffield WPtel: [phone] [phone] [place] (15 min) Moderate 10/21/2015 Patient Education: [...] spray 06/15/2015 [facility]ment[phone] [place] (15 min) Moderate 06/15/2015 Patient Education: Patient Medication Summary Completed 06/15/2015 Patient Education: Patient Medication Summary Completed 06/12/2015 Appointment: Berenice Cohen WPtel: [id number] (15 min) Moderate 06/11/2015 Appointment: Nurse Visit [...] day 03/12/2015 Appointment: [facility] Cohen [facility]el[phone] [facility] (15 min) Moderate 03/12/2015 Patient Education: Patient [...] appointment with then soon. Pt to try Modesto Mcdermott rub on the knees to help reduce [...] is sore 12/11/2014 Appointment: Berenice Cohen WPtel: [facility] [place] (15 min) Moderate 12/11/2014 Patient Education: [...] improving. 12/01/2014 Appointment: Berenice Cohen WPtel: [phone] [facility] (15 min) Moderate 12/01/2014 Patient Education: Patient Medication Summary Completed 12/01/2014 Patient Education: Hypertension Completed 12/01/2014 Appointment: Berenice Cohen WPtel: [facility]5 [facility] (15 min) Moderate 09/15/2014 Visit [...] not improve. 08/14/2014 Appointment: Berenice Cohen WPtel: [facility]5 [facility] [place] (S) New Patient 08/14/2014 Patient Education: [...] foot where it is sore [employer] glass[employer]ver will contact you for a colon screen test - it is a colon cancer screening that you will do at home and send in to the glassware engraver. . No fracture of foot - recommended [...] TWO hours after a meal - try Modesto Mcdermott on your knee. Decrease Salt in diet. [...] appointment with then soon. Pt to try Modesto Mcdermott rub on the knees to help reduce [...]
--- OUTSIDE RECORDS SUMMARY | 2018-06-30 13:49 | XMS REPORT | CCD ---
Author Author Berenice Cohen Organization Berenice Cohen MD, [facility] Address [address] [place] [address] Phone Care Team Providers Care Test Manager Name Role Phone PP Unavailable CCM Unavailable Summary Purpose Interface Exchange Insurance Providers Payer name Policy type / Coverage type Covered libertarian ID Effective Begin Date Effective End Date [employer] [id number] Unknown Unknown Family history Son Diagnosis Age [...] Unknown Retired 08/14/[address]: 633124620 Never smoker 08/14/[address]: 036957693 Never drinks alcohol 08/14/2014 Allergies, Adverse Reactions, Alerts Substance Reaction Codes Entered Date Inactivated Date Status AUGMENTIN hives RxNorm: 062850 08/14/2014 No Inactive Date Active SEVTXLZ-COY-SPD REDUCTASE INHIBITORS myalgias Unknown 2015 No Inactive [...] Start Date Stop Date Status Fill Instructions amlodipine 10 mg tablet RxNorm: 854078 1 Tablet(s) PO daily 07/201607/27/2017 Active Keflex 500 mg capsule RxNorm: 105279 1 Capsule(s) PO TID 201607/27/2016 Inactive Xanax 0.25 mg tablet RxNorm: 225706 1 Tablet(s) PO TID as needed anxiety 07/01/2016 08/27/2016 Active Zyrtec 10 mg tablet RxNorm: 3895015 1 Tablet(s) PO daily 07/0107/30/2016 Inactive amlodipine 5 mg tablet RxNorm: 317332 1 Tablet(s) PO daily 06/201607/30/2016 Inactive Keflex 500 mg capsule RxNorm: 345540 1 Capsule(s) PO TID 201607/03/2016 Inactive Keflex 500 mg capsule RxNorm: 870136 1 Capsule(s) PO TID 201606/23/2016 Inactive Keflex 500 mg capsule RxNorm: 953699 1 Capsule(s) PO TID 201606/30/2016 Inactive Flonase Allergy Relief 50 mcg/actuation nasal spray, suspension RxNorm: 1151046 USE ONE SPRAY(S) IN EACH NOSTRIL TWICE DAILY 06/20/2016 05/15/2017 Active amlodipine 10 mg tablet RxNorm: 493703 1 Tablet(s) PO daily 04/201606/28/2016 Inactive Lipitor 10 mg tablet RxNorm: 244121 1 Tablet(s) PO QHS 201609/12/2016 Active Flonase Allergy Relief 50 mcg/actuation nasal spray, suspension RxNorm: 6413406 USE ONE SPRAY(S) IN EACH NOSTRIL TWICE DAILY 04/18/2016 05/17/2016 Inactive cephalexin 500 mg capsule RxNorm: 808555 1 Capsule(s) PO TID 04/05/2016 Inactive take with probiotics BID amlodipine 10 mg tablet RxNorm: 602687 1 Tablet(s) PO daily 02/201605/29/2016 Inactive Bactroban 2 % topical cream RxNorm: 616250 1 Application TOP BID 03/30/2016 04/08/2016 Inactive Zithromax Z-Dylan 250 mg tablet RxNorm: 843374 1 Tablet(s) PO UD 03/10/2016 05/15/2016 Inactive z pack as directed Keflex 500 mg capsule RxNorm: 243502 1 Capsule(s) PO TID 201502/25/2016 Inactive take with probiotics BID acyclovir 800 mg tablet RxNorm: 315052 1 Tablet(s) PO TID 01/2402/21/2016 Inactive Zithromax Z-Dylan 250 mg tablet RxNorm: 723027 1 Tablet(s) PO UD 01/19/2016 01/24/2016 Inactive z pack Flonase Allergy Relief 50 mcg/actuation nasal spray, suspension RxNorm: 5876613 USE ONE SPRAY(S) IN EACH NOSTRIL TWICE DAILY 12/28/2015 02/25/2016 Inactive Kenalog 40 mg/mL suspension for injection RxNorm: 8434251 Milliliter(s) Inj 12/18/2015 12/18/2015 Inactive Keflex 500 mg capsule RxNorm: 971190 1 Capsule(s) PO TID 201512/24/2015 Inactive meclizine 25 mg tablet RxNorm: 457095 1 Tablet(s) PO TID as needed 12/09/2015 02/26/2016 Inactive Zithromax Z-Dylan 250 mg tablet RxNorm: 418061 1 Tablet(s) PO UD 12/09/2015 12/23/2015 Inactive z pack meclizine 25 mg tablet RxNorm: 692780 1 Tablet(s) PO TID as needed 12/09/2015 12/08/2015 Inactive Keflex 500 mg capsule RxNorm: 837205 1 Capsule(s) PO TID 201511/22/2015 Inactive Cipro 500 mg tablet RxNorm: 474784 1 Tablet(s) PO BID 201511/13/2015 Inactive Keflex 500 mg capsule RxNorm: 884896 1 Capsule(s) PO TID 201510/30/2015 Inactive Xanax 0.25 mg tablet RxNorm: 117770 1 Tablet(s) PO TID as needed anxiety 09/18/2015 11/13/2015 Inactive Keflex 500 mg capsule RxNorm: 379443 1 Capsule(s) PO TID 201508/19/2015 Inactive losartan 50 mg tablet RxNorm: 266520 1 Tablet(s) PO daily 201507/07/2015 Inactive Pepcid 20 mg tablet RxNorm: 963793 1 Tablet(s) PO BID 201507/07/2015 Inactive Pepcid 20 mg tablet RxNorm: 541633 1 Tablet(s) PO BID 201501/31/2016 Inactive losartan 50 mg tablet RxNorm: 828814 1 Tablet(s) PO daily 201501/31/2016 Inactive prednisone 20 mg tablet RxNorm: 402783 2 Tablet(s) PO daily 06/22/2015 Inactive prednisone 20 mg tablet RxNorm: 269126 2 Tablet(s) PO daily 12/23/2015 Inactive Diflucan 100 mg tablet RxNorm: 513776 TAKE ONE TABLET BY MOUTH ONCE DAILY 06/12/2015 12/23/2015 Inactive Zithromax Z-Dylan 250 mg tablet RxNorm: 330304 1 Tablet(s) PO UD 06/05/2015 07/06/2015 Inactive z pack amlodipine 5 mg tablet RxNorm: 927193 1 Tablet(s) PO daily 03/29/2016 Inactive Zetia 10 mg tablet RxNorm: 713615 1 Tablet(s) PO daily 201506/14/2015 Inactive valsartan 160 mg tablet RxNorm: 520219 1 Tablet(s) PO daily 07/07/2015 Inactive Lipitor 10 mg tablet RxNorm: 912811 1 Tablet(s) PO QHS 201505/18/2015 Inactive Lipitor 10 mg tablet RxNorm: 089474 1 Tablet(s) PO QHS 201504/27/2015 Inactive Zithromax 250 mg tablet RxNorm: 819763 Tablet(s) PO UD 201504/28/2015 Inactive Keflex 500 mg capsule RxNorm: 224583 1 Capsule(s) PO TID 201503/22/2015 Inactive Keflex 500 mg capsule RxNorm: 482776 1 Capsule(s) PO TID 201504/01/2015 Inactive Xanax 0.25 mg tablet RxNorm: 121685 1 Tablet(s) PO TID as needed anxiety 03/12/2015 07/04/2016 Inactive carvedilol 25 mg tablet RxNorm: 693246 1 Tablet(s) PO BID 03/1201/31/2016 Inactive amlodipine 5 mg tablet RxNorm: 198945 1 Tablet(s) PO BID 201505/18/2015 Inactive Diflucan 100 mg tablet RxNorm: 075602 1 Tablet(s) PO daily 03/21/2015 Inactive Diflucan 100 mg tablet RxNorm: 971499 1 Tablet(s) PO daily 02/14/2015 Inactive Diflucan 100 mg tablet RxNorm: 417422 1 Tablet(s) PO daily 06/201401/05/2015 Inactive Diflucan 100 mg tablet RxNorm: 465242 1 Tablet(s) PO daily 06/201412/31/2014 Inactive nystatin 100,000 unit/mL oral suspension RxNorm: 354024 5 Milliliter(s) PO QID 12/24/2014 06/14/2015 Inactive nystatin 100,000 unit/mL oral suspension RxNorm: 305252 5 Milliliter(s) PO QID 12/24/2014 12/23/2014 Inactive Zithromax 250 mg tablet RxNorm: 800380 1 Tablet(s) PO daily 12/19/2014 Inactive Zithromax 250 mg tablet RxNorm: 519823 1 Tablet(s) PO daily 12/14/2014 Inactive Flonase Allergy Relief 50 mcg/actuation nasal spray, suspension RxNorm: 1 [place] NASAL BID 12/11/2014 12/10/2014 Inactive Flonase Allergy Relief 50 mcg/actuation nasal spray, suspension RxNorm: 8563088 1 [place] NASAL BID 12/11/20142015 Inactive amlodipine 5 mg tablet RxNorm: 657835 2 Tablet(s) PO daily 11/13/2014 Inactive amlodipine 5 mg tablet RxNorm: 745635 2 Tablet(s) PO daily 03/11/2015 Inactive Lotrisone 1 %-0.05 % topical cream RxNorm: 879075 1 TOP BID until healed 10/17/2014 10/30/2014 Inactive Lotrisone 1 %-0.05 % topical cream RxNorm: 357400 1 TOP BID until healed 10/16/2014 10/16/2014 Inactive Lotrisone 1 %-0.05 % topical cream RxNorm: 376506 1 TOP BID until healed 10/06/2014 10/15/2014 Inactive Keflex 500 mg capsule RxNorm: 947959 1 Capsule(s) PO TID 201408/11/2014 Inactive Keflex 500 mg capsule RxNorm: 342111 1 Capsule(s) PO TID 201408/18/2014 Inactive clotrimazole 1 % topical solution RxNorm: 947475 1 Drop(s) TOP BID No Start Date Active Vitamin D3 5,000 unit tablet RxNorm: 796867 1 Tablet(s) PO daily No Start Date Active aspirin 81 mg tablet RxNorm: 970208 1 Tablet(s) PO daily No Start Date Active Lotrisone 1 %-0.05 % topical cream RxNorm: 295051 1 TOP BID until healed No Start Date 10/05/2014 Inactive lisinopril 40 mg tablet RxNorm: 479657 1 Tablet(s) PO daily No Start Date 05/18/2015 Inactive amlodipine 5 mg tablet RxNorm: 029218 1 Tablet(s) PO daily No Start Date 11/13/2014 Inactive indapamide 1.25 mg tablet RxNorm: 691431 1 Tablet(s) PO daily No Start Date 01/31/2016 Inactive Medication Administered Medication Codes Instructions Start Date Status Kenalog 40 mg/mL suspension for injection RxNorm: 7673765 Milliliter 12/18/2015 No longer Active Immunizations Vaccine [...] 35.4 % 04/12/2016 Cbc With Differential Ord2 [place]% 13.3 % 04/12/2016 Cbc With Differential Ord2 MCH 31.3 pg 04/12/2016 Cbc With Differential Ord2 MCHC 33.5 pg 04/12/2016 Cbc With Differential Ord2 Eos% 1.6 % 04/12/2016 Cbc With Differential Ord2 Baso% 0.5 % 04/12/2016 Cbc With Differential Ord2 PLT 209 K/ul 04/12/2016 Cbc With Differential Ord2 Neut ABS# 3.95 K/ul 04/12/2016 Cbc With Differential Ord2 RDW 13.7 % 04/12/2016 Cbc With Differential Ord2 Lymph ABS# 2.85 K/ul 04/12/2016 Cbc With Differential Ord2 [place] ABS# 1.1 K/ul 04/12/2016 Cbc With Differential Ord2 Eos ABS# 0.1 K/ul 04/12/2016 Cbc With Differential Ord2 Baso ABS# 0.0 K/ul 04/12/2016 Comp Metabolic Kej460 NA 129 mEq/L 04/12/2016 Comp Metabolic Buw482 K 4.0 mEq/L 04/12/2016 Comp Metabolic Uaj755 CL 93 mEq/L 04/12/2016 Comp Metabolic Doy494 CO2 29.0 mEq/L 04/12/2016 Comp Metabolic Kkq608 ANION GAP 11 04/12/2016 Comp Metabolic Uac690 GLUCOSE 100 mg/dL 04/12/2016 Comp Metabolic Jpv746 Creat 1.0 mg/dL 04/12/2016 Comp Metabolic Vzb695 eGFR 55 ml/min/1.73m2 04/12/2016 Comp Metabolic Xwm240 BUN 19 mg/dL 04/12/2016 Comp Metabolic Oan127 B/C Ratio 18.8 Ratio 04/12/2016 Comp Metabolic Xey840 CALCIUM 9.3 mg/dL 04/12/2016 Comp Metabolic Ige618 ALK PHOS 38 U/L 04/12/2016 Comp Metabolic Jcc321 AST(SGOT) 17 U/L 04/12/2016 Comp Metabolic Gzf688 ALT(SGPT) 11 U/L 04/12/2016 Comp Metabolic Sbc462 BILI T 1.0 mg/dL 04/12/2016 Comp Metabolic Iwt465 ALBUMIN 4.2 g/dL 04/12/2016 Comp Metabolic Tle580 TPRO 6.6 g/dL 04/12/2016 Comp Metabolic Nsy901 GLOB 2.4 g/dL 04/12/2016 Comp Metabolic Cdj685 A/G Ratio 1.8 Ratio 04/12/2016 Comp Metabolic Vah630 Osmo 261 mOsmo 04/12/2016 Lipid Ord30 CHOL 265 mg/dL 04/12/2016 Lipid Ord30 HDL 42.0 mg/dl 04/12/2016 Lipid Ord30 TRIG 246 mg/dL 04/12/2016 Lipid Ord30 LDL 174 mg/dL 04/12/2016 Lipid Ord30 C/HDL 6.3 Ratio 04/12/2016 Tsh Ord6 hTSH II 2.49 uIU/mL 04/12/2016 Tsh Ord6 hTSH II 1.83 uIU/mL 06/12/2015 Comp Metabolic Vqc996 NA 137 mEq/L 06/12/2015 Comp Metabolic Dkc745 K 4.4 mEq/L 06/12/2015 Comp Metabolic Mzb700 CL 103 mEq/L 06/12/2015 Comp Metabolic Lux234 CO2 27.0 mEq/L 06/12/2015 Comp Metabolic Geg936 ANION GAP 11 06/12/2015 Comp Metabolic Gil406 GLUCOSE 87 mg/dL 06/12/2015 Comp Metabolic Bsu367 Creat 1.3 mg/dL 06/12/2015 Comp Metabolic Zkm743 eGFR 43 ml/min/1.73m2 06/12/2015 Comp Metabolic Giy937 BUN 32 mg/dL 06/12/2015 Comp Metabolic Eeg553 B/C Ratio 25.4 Ratio 06/12/2015 Comp Metabolic Gck079 CALCIUM 9.5 mg/dL 06/12/2015 Comp Metabolic Hcx088 ALK PHOS 36 U/L 06/12/2015 Comp Metabolic Txg042 AST(SGOT) 16 U/L 06/12/2015 Comp Metabolic Ahr805 ALT(SGPT) 17 U/L 06/12/2015 Comp Metabolic Obs073 BILI T 1.0 mg/dL 06/12/2015 Comp Metabolic Gfx124 ALBUMIN 4.1 g/dL 06/12/2015 Comp Metabolic Kks593 TPRO 6.5 g/dL 06/12/2015 Comp Metabolic Aof343 GLOB 2.5 g/dL 06/12/2015 Comp Metabolic Vvz170 A/G Ratio 1.7 Ratio 06/12/2015 Comp Metabolic Egg938 Osmo 280 mOsmo 06/12/2015 Lipid Ord30 CHOL [...] 61.9 % 06/12/2015 Cbc With Differential Ord2 Lymph% 24.5 % 06/12/2015 Cbc With Differential Ord2 MCV 92.4 fl 06/12/2015 Cbc With Differential Ord2 MCH 30.6 pg 06/12/2015 Cbc With Differential Ord2 [place]% 11.0 % 06/12/2015 Cbc With Differential Ord2 MCHC 33.1 pg 06/12/2015 Cbc With Differential Ord2 Eos% 2.1 % 06/12/2015 Cbc With Differential Ord2 PLT 191 K/ul 06/12/2015 Cbc With Differential Ord2 Baso% 0.5 % 06/12/2015 Cbc With Differential Ord2 RDW 13.7 % 06/12/2015 Cbc With Differential Ord2 Neut ABS# 4.96 K/ul 06/12/2015 Cbc With Differential Ord2 Lymph ABS# 1.96 K/ul 06/12/2015 Cbc With Differential Ord2 [place] ABS# 0.9 K/ul 06/12/2015 Cbc With Differential [...] 12.2 g/dl 03/12/2015 Cbc With Differential Ord2 HCT 38.0 % 03/12/2015 Cbc With Differential Ord2 Neut% 66.2 % 03/12/2015 Cbc With Differential Ord2 MCV 94.5 fl 03/12/2015 Cbc With Differential Ord2 Lymph% 21.9 % 03/12/2015 Cbc With Differential Ord2 MCH 30.3 pg 03/12/2015 Cbc With Differential Ord2 [place]% 10.7 % 03/12/2015 Cbc With Differential Ord2 Eos% 1.0 % 03/12/2015 Cbc With Differential Ord2 MCHC 32.1 pg 03/12/2015 Cbc With Differential Ord2 Baso% 0.2 % 03/12/2015 Cbc With Differential Ord2 PLT 244 K/ul 03/12/2015 Cbc With Differential Ord2 RDW 14.2 % 03/12/2015 Cbc With Differential Ord2 Neut ABS# 6.04 K/ul 03/12/2015 Cbc With Differential Ord2 Lymph ABS# 2.00 K/ul 03/12/2015 Cbc With Differential Ord2 [place] ABS# 1.0 K/ul 03/12/2015 Cbc With Differential Ord2 Eos ABS# 0.1 K/ul 03/12/2015 Cbc With Differential Ord2 Baso ABS# 0.0 K/ul 03/12/2015 Cbc With Differential Ord2 New Analyzer Notice Please note new ref ranges starting 03-11-2015 due to implemntation of new five part differential hematolgy analyzer. 03/12/2015 Comp Metabolic Fem384 NA 139 mEq/L 03/12/2015 Comp Metabolic Mfl062 K 4.2 mEq/L 03/12/2015 Comp Metabolic Mfx655 CL 101 mEq/L 03/12/2015 Comp Metabolic Gar271 CO2 28.0 mEq/L 03/12/2015 Comp Metabolic Obb841 ANION GAP 14 03/12/2015 Comp Metabolic Alg417 GLUCOSE 78 mg/dL 03/12/2015 Comp Metabolic Mhi290 Creat 1.1 mg/dL 03/12/2015 Comp Metabolic Huo464 eGFR 51 ml/min/1.73m2 03/12/2015 Comp Metabolic Dgf073 BUN 17 mg/dL 03/12/2015 Comp Metabolic Xyt558 B/C Ratio 15.6 Ratio 03/12/2015 Comp Metabolic Jpg088 CALCIUM 9.4 mg/dL 03/12/2015 Comp Metabolic Fkp508 ALK PHOS 46 U/L 03/12/2015 Comp Metabolic Zzx949 AST(SGOT) 16 U/L 03/12/2015 Comp Metabolic Fmq301 ALT(SGPT) 12 U/L 03/12/2015 Comp Metabolic Ctr079 BILI T 0.8 mg/dL 03/12/2015 Comp Metabolic Thj882 ALBUMIN 4.1 g/dL 03/12/2015 Comp Metabolic Dsn503 TPRO 6.6 g/dL 03/12/2015 Comp Metabolic Vvq260 GLOB 2.6 g/dL 03/12/2015 Comp Metabolic Rvh803 A/G Ratio 1.6 Ratio 03/12/2015 Comp Metabolic Amm453 Osmo 278 mOsmo 03/12/2015 Lipid Ord30 CHOL [...] hTSH II 3.15 uIU/mL 12/01/2014 Comp Metabolic Ntn666 NA 132 mEq/L 12/01/2014 Comp Metabolic Kme341 K 4.4 mEq/L 12/01/2014 Comp Metabolic Vck490 CL 99 mEq/L 12/01/2014 Comp Metabolic Slk092 CO2 27.0 mEq/L 12/01/2014 Comp Metabolic Sjl888 ANION GAP 10 12/01/2014 Comp Metabolic Pzh666 GLUCOSE 86 mg/dL 12/01/2014 Comp Metabolic Mxq922 Creat 1.2 mg/dL 12/01/2014 Comp Metabolic Wdk543 eGFR 46 ml/min/1.73m2 12/01/2014 Comp Metabolic Xko025 BUN 32 mg/dL 12/01/2014 Comp Metabolic Ayl640 B/C Ratio 27.1 Ratio 12/01/2014 Comp Metabolic Iqb716 CALCIUM 9.4 mg/dL 12/01/2014 Comp Metabolic Qqn859 ALK PHOS 35 U/L 12/01/2014 Comp Metabolic Onb182 AST(SGOT) 14 U/L 12/01/2014 Comp Metabolic Bht944 ALT(SGPT) 13 U/L 12/01/2014 Comp Metabolic Zeb728 BILI T 0.8 mg/dL 12/01/2014 Comp Metabolic Vqv110 ALBUMIN 4.0 g/dL 12/01/2014 Comp Metabolic Qld676 TPRO 6.8 g/dL 12/01/2014 Comp Metabolic Zhr394 GLOB 2.8 g/dL 12/01/2014 Comp Metabolic Orl158 A/G Ratio 1.4 Ratio 12/01/2014 Comp Metabolic Hef914 Osmo 271 mOsmo 12/01/2014 Review of Systems [...] Procedure Codes Date PPPS, SUBSEQ VISIT CPT-4: Z4286Hhkqscn 06/2015 TRIAMCINOLONE ACET INJ NOS CPT-4: N7159Uqaaujs ADMIN INFLUENZA VIRUS VAC CPT-4: C0717Cobaeim FLU VACC 4 GISELA 3 YRS PLUS IM Formatting Model/CDA Sections, Assigned to/Malina Mazariegos SNOMED CT: 25858933 CPT-4: 36532Wqyxjml 11/26/2015 URINALYSIS NONAUTO W/O SCOPE CPT-4: 34707Wdpuaxz URINALYSIS NONAUTO W/O SCOPE CPT-4: 66202Rsrccpu IMMUNIZATION ADMIN CPT-4: 83339Fuwezhz 06/2014 FLU VACC 4 GISELA 3 YRS PLUS IM Formatting Model/CDA Sections, Assigned to/Malina Mazariegos SNOMED CT: 88864234 CPT-4: 24660Pckcopc 12/01/2014 Vital Signs Date Vital 08/02/2016 Blood Pressure 1: 160/62 Code : 8480-6 BMI: 25.3 Code : 21188-8 Heart Rate 1 : 67 bpm Height: 5'1" SpO2: 97% Weight: 134 lbs 07/21/2016 Blood Pressure 1: 148/66 Code : 8480-6 BMI: 25.9 Code : 33870-2 Heart Rate 1 : 71 bpm Height: 5'1" SpO2: 97% Temperature: 36.8 (C) / 98.2 (F) Weight: 137 lbs 07/01/2016 Blood Pressure 1: 142/72 Code : 8480-6 BMI: 26.5 Code : 77625-9 Heart Rate 1 : 68 bpm Height: 5'1" SpO2: 94% Weight: 140 lbs 05/16/2016 Blood Pressure 1: 138/68 Code : 8480-6 Blood Pressure 1: 162/76 Code: 8480-6 BMI: 25.7 Code: 14512-0 Heart Rate 1: 58 bpm Height: 5'1" SpO2: 98% Weight: 136 lbs 04/06/2016 Blood Pressure 1: 162/72 Code : 8480-6 Blood Pressure 1: 138/74 Code: 8480-6 BMI: 25.7 Code: 29594-8 Heart Rate 1: 75 bpm Height: 5'1" SpO2: 97% Weight: 136 lbs 03/30/2016 Blood Pressure 1: 188/80 Code : 8480-6 BMI: 26.3 Code : 40817-9 Heart Rate 1 : 75 bpm Height: 5'1" SpO2: 98% Weight: 139 lbs 02/01/2016 Blood Pressure 1: 140/72 Code : 8480-6 BMI: 25.3 Code : 99562-2 Heart Rate 1 : 65 bpm Height: 5'1" SpO2: 97% Waist Measure (cm): 84 cm Weight: 134 lbs 01/25/2016 Blood Pressure 1: 140/74 Code : 8480-6 BMI: 25.1 Code : 76398-1 Heart Rate 1 : 66 bpm Height: 5'1" SpO2: 98% Weight: 133 lbs 12/24/2015 Blood Pressure 1: 142/66 Code : 8480-6 BMI: 24.9 Code : 18778-6 Heart Rate 1 : 54 bpm Height: 5'1" SpO2: 97% Weight: 132 lbs 12/18/2015 Blood Pressure 1: 152/62 Code : 8480-6 BMI: 25.5 Code : 46446-1 Heart Rate 1 : 66 bpm Height: 5'1" SpO2: 96% Weight: 135 lbs 12/11/2015 Blood Pressure 1: 136/54 Code : 8480-6 Heart Rate 1: 72 bpm SpO2: 98% Weight: 137 lbs 11/26/2015 Blood Pressure 1: 142/70 Code : 8480-6 BMI: 25.3 Code : 95735-4 Heart Rate 1 : 64 bpm Height: 5'1" SpO2: 97% Weight: 134 lbs 11/20/2015 Blood Pressure 1: 154/70 Code : 8480-6 Heart Rate 1: 65 bpm SpO2: 98% 10/23/2015 Blood Pressure 1: 138/62 Code : 8480-6 Heart Rate 1: 55 bpm SpO2: 98% 10/21/2015 Blood Pressure 1: 142/68 Code : 8480-6 BMI: 25.7 Code : 25806-0 Heart Rate 1 : 73 bpm Height: 5'1" SpO2: 98% Weight: 136 lbs 07/15/2015 Blood Pressure 1: 130/60 Code : 8480-6 BMI: 26.6 Code : 95909-3 Heart Rate 1 : 70 bpm Height: 5'1" SpO2: 97% Weight: 141 lbs 06/15/2015 Blood Pressure 1: 118/64 Code : 8480-6 BMI: 24.9 Code : 68869-5 Heart Rate 1 : 66 bpm Height: 5'1" SpO2: 99% Weight: 132 lbs 06/05/2015 Blood Pressure 1: 142/60 Code : 8480-6 Blood Pressure 1: 135/58 Code: 8480-6 Heart Rate 1: 64 bpm SpO2: 99% 05/19/2015 Blood Pressure 1: 146/60 Code : 8480-6 BMI: 27.1 Code : 51990-3 Heart Rate 1 : 66 bpm Height: 5'1" SpO2: 97% Weight: 143 lbs 8 oz 04/24/2015 Blood Pressure 1: 148/58 Code : 8480-6 BMI: 25.9 Code : 94592-0 Heart Rate 1 : 61 bpm Height: 5'1" SpO2: 98% Weight: 137 lbs 03/12/2015 Blood Pressure 1: 140/72 Code : 8480-6 BMI: 25.1 Code : 73929-4 Heart Rate 1 : 68 bpm Height: 5'1" SpO2: 98% Weight: 133 lbs 01/12/2015 Blood Pressure 1: 146/60 Code : 8480-6 BMI: 25.7 Code : 32342-9 Heart Rate 1 : 48 bpm Height: 5'1" SpO2: 97% Weight: 136 lbs 12/11/2014 Blood Pressure 1: 125/65 Code : 8480-6 Blood Pressure 1: 144/56 Code: 8480-6 BMI: 25.1 Code: 14143-4 Heart Rate 1: 56 bpm Height: 5'1" SpO2: 96% Weight: 133 lbs 12/01/2014 Blood Pressure 1: 136/60 Code : 8480-6 Heart Rate 1: 56 bpm SpO2: 96% Weight: 131 lbs 5 oz 08/14/2014 Blood Pressure 1: 132/72 Code : 8480-6 BMI: 25.5 Code : 51466-5 Heart Rate 1 : 73 bpm Height: [...] data Encounters Encounter Performer Location Codes Date 28937 EST. PATIENT, LEVEL III Diagnosis: Other acute sinusitis[ICD10: J01.80] Diagnosis: Other allergic rhinitis[ICD10: J30.89] Diagnosis: Otalgia, bilateral[ICD10: H92.03] Evelyn Cohen MD, [facility] CPT -4: 14055 08/02/2016 ([id number]) 61401 EST. PATIENT, LEVEL III Diagnosis: Acute recurrent maxillary sinusitis[ICD10: J01.01] Diagnosis: Otalgia, right ear[ICD10: H92.01] Doris Cohen MD, [facility] CPT-4: 50012 07/21/2016 [id number] EST. PATIENT, LEVEL III Diagnosis: Dysuria[ICD10: R30.0] Diagnosis: Other allergic rhinitis[ICD10: J30.89] [facility] CPT-4: 49218 07/01/2016 ([id number]) 45522 EST. PATIENT, LEVEL IV Diagnosis: Essential (primary) hypertension[ICD10: I10] Diagnosis: Mixed hyperlipidemia[ICD10: E78.2] Berenice Cohen MD, [facility] CPT-4: 86060 05/16/2016 42482 EST. PATIENT, LEVEL III Diagnosis: Mixed hyperlipidemia[ICD10: E78.2] Diagnosis: Essential (primary) hypertension[ICD10: I10] Diagnosis: Laceration without foreign body of left hand, subsequent encounter[ ICD10: S61.412D] Evelyn Cohen MD [facility] CPT-4: 38840 04/06/2016 ([id number]) 96896 EST. PATIENT, LEVEL III Diagnosis: Essential (primary) hypertension[ICD10: I10] Berenice Cohen MD [facility] CPT-4: 83176 03/30/2016 ([id number]) 61046 EST. 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 CPT-4: 08755 01/25/2016 ([id number]) 93062 EST. PATIENT, LEVEL III Diagnosis: Essential (primary) hypertension[ICD10: I10] Berenice Cohen MD [facility] CPT-4: 37359 12/24/2015 74546 EST. PATIENT, LEVEL III Diagnosis: Other acute sinusitis[ICD10: J01.80] Diagnosis: Other allergic rhinitis[ICD10: J30.89] Evelyn Cohen MD, [facility] CPT-4: 74016 12/18/2015 ([id number]) Miscellaneous no charge Diagnosis: Essential (primary) hypertension[ICD10: I10] Evelyn Cohen MD [facility] CPT-4: 50269 12/11/2015 ([id number]) 86785 EST. PATIENT, LEVEL IV Diagnosis: Essential (primary) hypertension[ICD10: I10] Diagnosis: Other abnormal glucose[ICD10: R73.09] Diagnosis: Encounter for immunization[ICD10: Z23] Berenice Cohen MD [facility] CPT-4: 52102 11/26/2015 ([id number]) Miscellaneous no charge Diagnosis: Bitten by dog, initial encounter[ICD10: W54.0XXA] Evelyn Cohen MD [facility] CPT-4: 93446 10/29/2015 ([id number]) Miscellaneous no charge Diagnosis: Essential (primary) hypertension[ICD10: I10] Diagnosis: Bitten by dog, initial encounter[ICD10: W54.0XXA] Evelyn Cohen MD, [facility] CPT-4: 13209 10/23/2015 [id number] EST. PATIENT, LEVEL III Diagnosis: Cellulitis of face[ICD10: L03.211] Diagnosis: Bitten by dog, initial encounter[ICD10: W54.0XXA] Evelyn Cohen MD, [facility] CPT-4: 55959 10/21/2015 ([id number]) Miscellaneous no charge Diagnosis: Essential (primary) hypertension[ICD10: I10] Evelyn Cohen MD, [facility] CPT-4: 28729 07/15/2015 ([id number]) 02332 EST. PATIENT, LEVEL IV Diagnosis: Essential (primary) hypertension[ICD10: I10] Diagnosis: Mixed hyperlipidemia[ICD10: E78.2] Diagnosis: Dry mouth, unspecified[ICD10: R68.2] Berenice Cohen MD, [facility] CPT-4: 62601 06/15/2015 ([id number]) Miscellaneous no charge Diagnosis: Essential (primary) hypertension[ICD10: I10] Doris Cohen MD, [facility] CPT-4: 35451 06/05/2015 ([id number]) 42809 EST. PATIENT, LEVEL IV Diagnosis: Mammographic microcalcification found on diagnostic imaging of breast [ICD10: R92.0] Diagnosis: Edema, unspecified[ICD10: R60.9] Diagnosis: Essential (primary) hypertension[ICD10: I10] Berenice Cohen MD, [facility] CPT-4: 83642 05/19/2015 [id number] EST. PATIENT, LEVEL IV Diagnosis: Other acute sinusitis[ICD10: J01.80] Diagnosis: Acute nasopharyngitis [common cold][ICD10: J00] Diagnosis: Other allergic rhinitis[ICD10: J30.89] Diagnosis: Localized edema[ICD10: R60.0] Diagnosis: Mixed hyperlipidemia[ICD10: E78.2] Evelyn Cohen MD, [facility] CPT-4: 79246 04/24/2015 ([id number]) 22023 EST. PATIENT, LEVEL IV Diagnosis: Essential (primary) hypertension[ICD10: I10] Diagnosis: Abscess of liver[ICD10: K75.0] Diagnosis: Anemia, unspecified[ICD10: D64.9] Berenice Cohen MD, [facility] CPT-4: 60586 03/12/2015 [id number] EST. PATIENT, LEVEL IV Diagnosis: Essential (primary) hypertension[ICD10: I10] Diagnosis: Candidal stomatitis[ICD10: B37.0] Diagnosis: Pain in unspecified knee[ICD10: M25.569] Diagnosis: Edema, unspecified[ICD10: R60.9] Evelyn Cohen MD, [facility] CPT- 4: 15298 01/12/2015 ([id number]) 25232 EST. PATIENT, LEVEL III Diagnosis: Pain in right foot[ICD10: M79.671] Berenice Cohen MD, [facility] CPT-4: 30069 12/11/2014 ([id number]) 18333 EST. PATIENT, LEVEL IV Diagnosis: Abscess of liver[ICD10: K75.0] Diagnosis: Hypo-osmolality and hyponatremia[ICD10: E87.1] Diagnosis: Essential (primary) hypertension[ICD10: I10] Diagnosis: VACCIN FOR INFLUENZA[ICD10: Z23] Berenice Cohen MD, [facility] CPT-4: 09295 12/01/2014 ([id number]) OFFICE VISIT, NEW - LEVEL 4 Diagnosis: ESSENTIAL HYPERTENSION[ICD9: 401.9] Diagnosis: Chronic maxillary sinusitis[ICD9: 473.0] Berenice Cohen MD, [facility] CPT-4: 03629 08/14/2014 Plan of Care Planned Activity Notes [...] show improvement. 08/02/2016 Appointment: Evelyn West WPtel: [facility]5 [id number] (30 min) [facility] 08/02/2016 Patient Education: Patient Medication Summary Completed [...] ear flushed 07/21/2016 Appointment: Doris Sheffield WPtel: [phone] [phone] (15 min) Moderate 07/21/2016 Patient Education: Patient [...] 10mg nightly. 05/16/2016 Appointment[phone] ([facility] min) Moderate 05/16/2016 Patient Education: Patient [...] or concerns. 2016 App[facility]ment: [phone] (10 min) Simple 04/06/2016 Patient Education: [...] twice daily. 03/30/2016 Appointment: [facility]el[phone] (15 min) Moderate 03/30/2016 Patient Education: Patient Medication Summary Completed 03/30/2016 Appointment: Berenice Cohen WPtel: [facility]7 [facility] (15 min) Moderate 03/24/2016 Visit Plan: Medicare [...] care surrogate. 02/01/2016 Appointment: Evelyn West WPtel: [facility]6 [id number] [place] [address] - Annual Wellness Visit 02/01/2016 Patient Education: Patient Medication Summary Completed 02/01/2016 Visit Plan: Apthous ulcer - rx for acyclovir 800mg tid x7 daysSample of Voltaren gel to use on knees tid prn 01/25/2016 Appointment: Berenice Cohen WPtel: [facility]7 [facility] (15 min) Moderate 01/25/2016 Patient Education: Patient Medication Summary Completed 01/25/2016 Visit Plan: Hypertension - well controlled - continue with current medications , continue with no added salt diet. Pt has been encouraged to exercise daily.The pt has been advised to call the office if there are any acute concerns about change in blood pressure readings at home. 12/24/2015 Appointment: Berenice Cohen WPtel: [facility] (15 min) Moderate 12/24/2015 Patient Education: Patient [...] show improvement. 12/18/2015 Appointment: Doris Sheffield WPtel: [phone] [phone] (15 min) Moderate 12/18/2015 Patient Education: Patient [...] meal - 11/26/2015 Appointment: Berenice Cohen WPtel: [phone] [facility] (15 min) Moderate 11/26/2015 Patient Education: [...] pain. 10/21/2015 Appointment: Doris Sheffield WPtel: [phone] [phone] (15 min) Moderate 10/21/2015 Patient Education: Patient [...] mouth spray 06/15/2015 Appointment: Berenice Cohen WPtel: [facility]5 [facility] (15 min) Moderate 06/15/2015 Patient Education: Patient Medication Summary Completed 06/15/2015 Patient Education: Patient Medication Summary Completed 06/12/2015 Appointment: Berenice Cohen WPtel: [phone] [facility] (15 min) Moderate 06/11/2015 Appointment: Nurse Visit [...] the day 03/12/2015 Appointment: Berenice Cohen WPtel: [address] [place], [place] [address] [place] (15 min) Moderate 03/12/2015 Patient Education: Patient [...] appointment with then soon. Pt to try [place] rub on the knees to help reduce [...] is sore 12/11/2014 Appointment: Berenice Cohen WPtel: [address] [place], [place] [id number] (15 min) Moderate 12/11/2014 Patient Education: Patient [...] not improving. 12/01/2014 Appointment: Berenice Cohen WPtel: [address] [place] [id number] (15 min) Moderate 12/01/2014 Patient Education: Patient Medication Summary Completed 12/01/2014 Patient Education: Hypertension Completed 12/01/2014 Appointment: MarmarthBerenice WPtel: [phone] [facility] (15 min) Moderate 09/15/2014 Visit Plan: Hypertension [...] not improve. 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 . No fracture of foot - recommended [...] TWO hours after a meal - try [place] on your knee. Decrease Salt in diet. [...] appointment with then soon. Pt to try [place] rub on the knees to help reduce [...]
--- OUTSIDE RECORDS SUMMARY | 2018-06-30 13:53 | XMS REPORT | CCD ---
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 Name Role Phone PP Unavailable CCM Unavailable Summary Purpose Interface Exchange Insurance Providers Payer name Policy type / Coverage type Covered alliance party ID Effective Begin Date Effective End Date Population Diagnostics Commercial Insurance [id number] Unknown Unknown Family history Son Diagnosis Age At Onset Hypertension Unknown Mother Diagnosis Age At Onset Heart disease Unknown Brother Diagnosis Age At Onset Diabetes Unknown Renal cell carcinoma Unknown Hypertension Unknown Brother Diagnosis Age At Onset Heart disease Unknown Father Diagnosis Age At Onset Hypertension Unknown Sister Diagnosis Age At Onset Heart disease Unknown Brother Diagnosis Age At Onset Heart disease Unknown Social History Social History Element Codes Description Effective Dates Marital status Unknown 08/14/2014 Number of children Unknown 2 08/14/2014 Employment Unknown Retired 08/14/[address]: 586009482 Never smoker 08/14/[address]: 928746608 Never drinks alcohol 08/14/2014 Allergies, Adverse Reactions, Alerts Substance Reaction Codes Entered Date Inactivated Date Status AUGMENTIN hives, RxNorm: 392662 08/14/2014 No Inactive Date Active [id number] REDUCTASE INHIBITORS myalgias, Unknown 2015 No Inactive Date Active Past Medical History Illness Codes Condition Status Onset Date Resolved Date Essential (primary) hypertension ICD-9: 401.1 ICD-10: I10 Active 12/23/2015 Unknown Localized edema ICD-9 : 782.3 ICD-10: R60.0 Active 04/23/2015 Unknown Unilateral primary osteoarthritis, left knee ICD-9: 715.96 ICD-10: M17.12 Active 05/22/2018 Unknown Essential (primary) hypertension ICD-9: 401.9 ICD-10: I10 Active 06/11/2015 Unknown Mixed hyperlipidemia ICD-9: 272.2 ICD-10: E78.2 Active 06/14/2015 Unknown Other abnormal glucose ICD-9: 790.29 ICD-10: R73.09 Active 11/25/2015 Unknown Vitamin D deficiency, unspecified ICD-9: 268.9 ICD-10: E55.9 Active 04/11/2018 Unknown Hypo-osmolality and hyponatremia ICD-9: 276.1 ICD-10: E87.1 Active 11/30/2014 Unknown Other acute sinusitis ICD-9: 461.8 ICD-10: J01.80 Active 12/17/2015 Unknown Other allergic rhinitis ICD-9: 477.8 ICD-10: J30.89 Active 12/17/2015 Unknown Encounter for screening mammogram for malignant neoplasm of breast ICD-9: V76.10 ICD-10: Z12.31 Active 12/29/2017 Unknown Acute recurrent maxillary sinusitis ICD-9: 461.0 ICD-10: J01.01 Active 07/21/2016 Unknown Chronic maxillary sinusitis ICD-9: 473.0 ICD-10: J32.0 Active 11/13/2017 Unknown VACCIN FOR INFLUENZA ICD-9: V04.81 ICD-10: Z23 Active 11/25/2015 Unknown Tinea corporis ICD-9: 110.5 ICD-10: B35.4 Active 08/29/2017 Unknown Otalgia, bilateral ICD -9: 388.70 ICD-10: H92.03 Active 08/02/2016 Unknown Pain in left knee ICD- 9: 719.46 ICD-10: M25.562 Active 06/20/2017 Unknown Pain in right knee ICD -9: 719.46 ICD-10: M25.561 Active 06/20/2017 Unknown Gastro-esophageal reflux disease without esophagitis ICD-9: 530.81 ICD-10: K21.9 Active 05/26/2017 Unknown Encounter for general adult medical examination with abnormal findings ICD-9: V70.0 ICD-10: Z00.01 Active 01/31/2016 Unknown Dysuria ICD-9: 788.1 ICD-10: R30.0 Active 11/19/2015 Unknown Otalgia, right ear ICD -9: 388.70 ICD-10: H92.01 Active 07/21/2016 Unknown Laceration without foreign body of left hand, subsequent encounter ICD-9: V58.89 ICD-10: S61.412D Active 04/06/2016 Unknown 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 Active 01/24/2016 Unknown Bitten by dog, initial encounter ICD-9: [...] ICD-9: 460 ICD-10: J00 Active 04/23/2015 Unknown Abscess of liver ICD-9 : 572.0 ICD-10: K75.0 Active 03/11/2015 Unknown Anemia, unspecified ICD-9: 285.9 ICD-10: D64.9 Active 03/11/2015 Unknown Candidal stomatitis ICD-9: 112.0 ICD-10: B37.0 Active 01/11/2015 Unknown Pain in unspecified knee ICD-9: 719.46 ICD-10: M25.569 Active 01/11/2015 Unknown Pain in right foot ICD -9: 729.5 ICD-10: M79.671 Active 12/10/2014 Unknown Hypertension Unknown Active 08/14/2014 Unknown Chronic maxillary sinusitis ICD-9: 473.0 Active 08/13/2014 Unknown ESSENTIAL HYPERTENSION ICD-9: 401.9 Active 08/13/2014 Unknown Problems Condition Codes Effective Dates Condition Status Essential (primary) hypertension ICD-9: 401.1 ICD-10: I10 12/23/2015 Active Localized edema ICD-9 : 782.3 ICD-10: R60.0 04/23/2015 Active Unilateral primary osteoarthritis, left knee ICD-9: 715.96 ICD-10: M17.12 05/22/2018 Active Essential (primary) hypertension ICD-9: 401.9 ICD-10: I10 06/11/2015 Active Mixed hyperlipidemia ICD-9: 272.2 ICD-10: E78.2 06/14/2015 Active Other abnormal glucose ICD-9: 790.29 ICD-10: R73.09 11/25/2015 Active Vitamin D deficiency, unspecified ICD-9: 268.9 ICD-10: E55.9 04/11/2018 Active Hypo-osmolality and hyponatremia ICD-9: 276.1 ICD-10: E87.1 11/30/2014 Active Other acute sinusitis ICD-9: 461.8 ICD-10: J01.80 12/17/2015 Active Other allergic rhinitis ICD-9: 477.8 ICD-10: J30.89 12/17/2015 Active Encounter for screening mammogram for malignant neoplasm of breast ICD-9: V76.10 ICD-10: Z12.31 12/29/2017 Active Acute recurrent maxillary sinusitis ICD-9: 461.0 ICD-10: J01.01 07/21/2016 Active Chronic maxillary sinusitis ICD-9: 473.0 ICD-10: J32.0 11/13/2017 Active VACCIN FOR INFLUENZA ICD-9: V04.81 ICD-10: Z23 11/25/2015 Active Tinea corporis ICD-9: 110.5 ICD-10: B35.4 08/29/2017 Active Otalgia, bilateral ICD -9: 388.70 ICD-10: H92.03 08/02/2016 Active Pain in left knee ICD- 9: 719.46 ICD-10: M25.562 06/20/2017 Active Pain in right knee ICD -9: 719.46 ICD-10: M25.561 06/20/2017 Active Gastro-esophageal reflux disease without esophagitis ICD-9: 530.81 ICD-10: K21.9 05/26/2017 Active Encounter for general adult medical examination with abnormal findings ICD-9: V70.0 ICD-10: Z00.01 01/31/2016 Active Dysuria ICD-9: 788.1 ICD-10: R30.0 11/19/2015 Active Otalgia, right ear ICD -9: 388.70 ICD-10: H92.01 07/21/2016 Active Laceration without foreign body of left hand, subsequent encounter ICD-9: V58.89 ICD-10: S61.412D 04/06/2016 Active 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 01/24/2016 Active Bitten by dog, initial encounter ICD-9: [...] cold] ICD-9: 460 ICD-10: J00 04/23/2015 Active Abscess of liver ICD-9 : 572.0 ICD-10: K75.0 03/11/2015 Active Anemia, unspecified ICD-9: 285.9 ICD-10: D64.9 03/11/2015 Active Candidal stomatitis ICD-9: 112.0 ICD-10: B37.0 01/11/2015 Active Pain in unspecified knee ICD-9: 719.46 ICD-10: M25.569 01/11/2015 Active Pain in right foot ICD -9: 729.5 ICD-10: M79.671 12/10/2014 Active Hypertension Unknown 08/14/2014 Active Chronic maxillary sinusitis ICD-9: 473.0 08/13/2014 Active ESSENTIAL HYPERTENSION ICD-9: 401.9 08/13/2014 Active Medications Medication Codes Instructions Start Date Stop Date Status Fill Instructions Lasix 20 mg tablet RxNorm: 927759 1 Tablet(s) PO daily as needed edema 06/14/2018 07/13/2018 Active potassium chloride ER 10 mEq tablet,extended release RxNorm: 292569 1 Tablet(s) PO daily as needed edema when taking lasix 06/14/2018 No Stop Date Active Keflex 500 mg capsule RxNorm: 051201 1 Capsule(s) PO TID and take a probiotic BID x7days 06/11/2018 06/17/2018 Inactive take with probiotic BID Lasix 40 mg tablet RxNorm: 598010 1 Tablet(s) PO daily 201806/09/2018 Inactive potassium chloride ER 20 mEq tablet,extended release RxNorm: 345496 1 Tablet(s) PO daily 06/07/2018 06/09/2018 Inactive Voltaren 1 % topical gel RxNorm: 103078 1 Application TOP QID as needed 06/04/2018 No Stop Date Active Carafate 1 gram tablet RxNorm: 575139 1 Tablet(s) PO QID as needed 05/25/2018 06/03/2018 Inactive Carafate 1 gram tablet RxNorm: 665520 1 Tablet(s) PO QID as needed 05/25/2018 05/24/2018 Inactive Zithromax Z-Dylan 250 mg tablet RxNorm: 343448 1 Tablet(s) PO UD 05/02/2018 06/03/2018 Inactive glipizide 5 mg tablet RxNorm: 150744 1 Tablet(s) PO BID 201808/15/2018 Active glipizide 5 mg tablet RxNorm: 629354 1 Tablet(s) PO BID 201804/17/2018 Inactive Xanax 0.25 mg tablet RxNorm: 163311 1 Tablet(s) PO TID as needed anxiety 04/11/2018 06/09/2018 Inactive Zithromax Z-Dylan 250 mg tablet RxNorm: 884682 1 Tablet(s) PO UD 02/06/2018 04/17/2018 Inactive Zyrtec 10 mg tablet RxNorm: 6601294 1 Tablet(s) PO daily 12/0801/06/2018 Inactive Zithromax Z-Dylan 250 mg tablet RxNorm: 407188 1 Tablet(s) PO UD 12/08/2017 02/05/2018 Inactive Lipitor 10 mg tablet RxNorm: 339678 1 Tablet(s) PO QHS 201706/21/2018 Active Lipitor 10 mg tablet RxNorm: 258386 TAKE 1 TABLET BY MOUTH EVERY DAY AT BEDTIME 11/24/2017 No Stop Date Active lisinopril 10 mg tablet RxNorm: 244950 1 Tablet(s) PO daily 08/17/2018 Active prednisone 20 mg tablet RxNorm: 131025 2 Tablet(s) PO daily 11/17/2017 Inactive Keflex 500 mg capsule RxNorm: 998946 1 Capsule(s) PO TID and take a probiotic BID x711/07/2017 11/13/2017 Inactive take with probiotic BID amlodipine 5 mg tablet RxNorm: 741683 1 Tablet(s) PO daily 10/06/2018 Active cefdinir 300 mg capsule RxNorm: 499395 1 Capsule(s) PO BID 09/23/2017 Inactive cefdinir 300 mg capsule RxNorm: 822097 1 Capsule(s) PO BID started by Dr. Davila 09/14/2017 09/13/2017 Inactive betamethasone dipropionate 0.05 % topical cream RxNorm: 569950 1 Application TOP BID 08/29/2017 10/09/2017 Inactive mix with clotrimazole and apply to affected area clotrimazole 1 % topical cream RxNorm: 733295 1 Application TOP BID 08/29/2017 10/09/2017 Inactive mix with betamethasone and apply to affected area nystatin 100,000 unit/mL oral suspension RxNorm: 089641 5 Milliliter(s) PO QID 08/29/2017 09/17/2017 Inactive lisinopril 10 mg tablet RxNorm: 236731 1 Tablet(s) PO daily 11/14/2017 Inactive Kenalog 40 mg/mL suspension for injection RxNorm: 5720211 1 Milliliter(s) Inj 07/28/2017 07/28/2017 Inactive nystatin 100,000 unit/mL oral suspension RxNorm: 398134 5 Milliliter(s) PO QID 07/28/2017 08/06/2017 Inactive Keflex 500 mg capsule RxNorm: 176140 1 Capsule(s) PO TID 201708/03/2017 Inactive Flonase Allergy Relief 50 mcg/actuation nasal spray, suspension RxNorm: 2094629 USE ONE SPRAY(S) IN EACH NOSTRIL TWICE DAILY 07/25/2017 No Stop Date Active meclizine 25 mg tablet RxNorm: 512555 TAKE ONE TABLET BY MOUTH THREE TIMES DAILY NEEDED 07/25/2017 No Stop Date Active Voltaren 1 % topical gel RxNorm: 138915 1 Application TOP QID as needed 06/20/2017 06/03/2018 Inactive Zithromax Z-Dylan 250 mg tablet RxNorm: 025618 1 Tablet(s) PO UD 06/20/2017 07/27/2017 Inactive z pack as directed Keflex 500 mg capsule RxNorm: 880802 1 Capsule(s) PO TID 201706/01/2017 Inactive Zithromax Z-Dylan 250 mg tablet RxNorm: 805460 1 Tablet(s) PO UD 04/27/2017 06/19/2017 Inactive z pack as directed lisinopril 10 mg tablet RxNorm: 886991 1 Tablet(s) PO daily 07/22/2017 Inactive Lipitor 10 mg tablet RxNorm: 927479 1 Tablet(s) PO QHS 201711/06/2017 Inactive Zithromax Z-Dylan 250 mg tablet RxNorm: 496769 1 Tablet(s) PO UD 02/15/2017 04/26/2017 Inactive z pack as directed meclizine 25 mg tablet RxNorm: 362438 TAKE ONE TABLET BY MOUTH THREE TIMES DAILY NEEDED 01/23/2017 07/24/2017 Inactive Zithromax Z-Dylan 250 mg tablet RxNorm: 766822 1 Tablet(s) PO UD 01/05/2017 02/14/2017 Inactive z pack as directed losartan 50 mg tablet RxNorm: 742252 1 Tablet(s) PO daily 201604/10/2017 Inactive amlodipine 5 mg tablet RxNorm: 456474 1 Tablet(s) PO daily 10/11/2017 Inactive Zithromax Z-Dylan 250 mg tablet RxNorm: 795545 1 Tablet(s) PO UD 12/16/2016 01/04/2017 Inactive z pack as directed Zyrtec 10 mg tablet RxNorm: 4191064 1 Tablet(s) PO daily 12/1601/14/2017 Inactive Lipitor 10 mg tablet RxNorm: 776580 1 Tablet(s) PO QHS 201602/22/2017 Inactive Zithromax Z-Dylan 250 mg tablet RxNorm: 106830 1 Tablet(s) PO UD 09/27/2016 12/15/2016 Inactive z pack as directed Lipitor 10 mg tablet RxNorm: 333351 1 Tablet(s) PO QHS 201610/25/2016 Inactive guaifenesin 400 mg tablet RxNorm: 242858 1 Tablet(s) PO BID as needed 08/04/2016 No Stop Date Active cefdinir 300 mg capsule RxNorm: 064410 1 Capsule(s) PO BID started by Dr. Davila 08/04/2016 08/13/2016 Inactive amlodipine 10 mg tablet RxNorm: 519719 1 Tablet(s) PO daily 07/201612/21/2016 Inactive Keflex 500 mg capsule RxNorm: 929067 1 Capsule(s) PO TID 201607/27/2016 Inactive Zyrtec 10 mg tablet RxNorm: 5995411 1 Tablet(s) PO daily 07/0107/30/2016 Inactive Xanax 0.25 mg tablet RxNorm: 442522 1 Tablet(s) PO TID as needed anxiety 07/01/2016 08/27/2016 Inactive amlodipine 5 mg tablet RxNorm: 480968 1 Tablet(s) PO daily 06/201607/30/2016 Inactive Keflex 500 mg capsule RxNorm: 796396 1 Capsule(s) PO TID 201607/03/2016 Inactive Keflex 500 mg capsule RxNorm: 902712 1 Capsule(s) PO TID 201606/23/2016 Inactive Keflex 500 mg capsule RxNorm: 067122 1 Capsule(s) PO TID 201606/30/2016 Inactive Flonase Allergy Relief 50 mcg/actuation nasal spray, suspension RxNorm: 1937967 USE ONE SPRAY(S) IN EACH NOSTRIL TWICE DAILY 06/20/2016 05/15/2017 Inactive amlodipine 10 mg tablet RxNorm: 499430 1 Tablet(s) PO daily 04/201606/28/2016 Inactive Lipitor 10 mg tablet RxNorm: 973761 1 Tablet(s) PO QHS 201608/14/2016 Inactive Flonase Allergy Relief 50 mcg/actuation nasal spray, suspension RxNorm: 1313013 USE ONE SPRAY(S) IN EACH NOSTRIL TWICE DAILY 04/18/2016 05/17/2016 Inactive cephalexin 500 mg capsule RxNorm: 910785 1 Capsule(s) PO TID 04/05/2016 Inactive take with probiotics BID amlodipine 10 mg tablet RxNorm: 046948 1 Tablet(s) PO daily 02/201605/29/2016 Inactive Bactroban 2 % topical cream RxNorm: 572573 1 Application TOP BID 03/30/2016 04/08/2016 Inactive Zithromax Z-Dylan 250 mg tablet RxNorm: 554370 1 Tablet(s) PO UD 03/10/2016 05/15/2016 Inactive z pack as directed Keflex 500 mg capsule RxNorm: 907608 1 Capsule(s) PO TID 201502/25/2016 Inactive take with probiotics BID acyclovir 800 mg tablet RxNorm: 575539 1 Tablet(s) PO TID 01/2402/21/2016 Inactive Zithromax Z-Dylan 250 mg tablet RxNorm: 930337 1 Tablet(s) PO UD 01/19/2016 01/24/2016 Inactive z pack Flonase Allergy Relief 50 mcg/actuation nasal spray, suspension RxNorm: 9558485 USE ONE SPRAY(S) IN EACH NOSTRIL TWICE DAILY 12/28/2015 02/25/2016 Inactive Kenalog 40 mg/mL suspension for injection RxNorm: 7452890 Milliliter(s) Inj 12/18/2015 12/18/2015 Inactive Keflex 500 mg capsule RxNorm: 766879 1 Capsule(s) PO TID 201512/24/2015 Inactive Zithromax Z-Dylan 250 mg tablet RxNorm: 375484 1 Tablet(s) PO UD 12/09/2015 12/23/2015 Inactive z pack meclizine 25 mg tablet RxNorm: 856886 1 Tablet(s) PO TID as needed 12/09/2015 12/08/2015 Inactive meclizine 25 mg tablet RxNorm: 956963 1 Tablet(s) PO TID as needed 12/09/2015 02/26/2016 Inactive Keflex 500 mg capsule RxNorm: 440350 1 Capsule(s) PO TID 201511/22/2015 Inactive Cipro 500 mg tablet RxNorm: 559192 1 Tablet(s) PO BID 201511/13/2015 Inactive Keflex 500 mg capsule RxNorm: 792697 1 Capsule(s) PO TID 201510/30/2015 Inactive Xanax 0.25 mg tablet RxNorm: 192753 1 Tablet(s) PO TID as needed anxiety 09/18/2015 11/13/2015 Inactive Keflex 500 mg capsule RxNorm: 506584 1 Capsule(s) PO TID 201508/19/2015 Inactive losartan 50 mg tablet RxNorm: 480702 1 Tablet(s) PO daily 201507/07/2015 Inactive Pepcid 20 mg tablet RxNorm: 867037 1 Tablet(s) PO BID 201507/07/2015 Inactive Pepcid 20 mg tablet RxNorm: 817021 1 Tablet(s) PO BID 201501/31/2016 Inactive losartan 50 mg tablet RxNorm: 022794 1 Tablet(s) PO daily 201501/31/2016 Inactive prednisone 20 mg tablet RxNorm: 804683 2 Tablet(s) PO daily 06/22/2015 Inactive prednisone 20 mg tablet RxNorm: 235578 2 Tablet(s) PO daily 12/23/2015 Inactive Diflucan 100 mg tablet RxNorm: 302024 TAKE ONE TABLET BY MOUTH ONCE DAILY 06/12/2015 12/23/2015 Inactive Zithromax Z-Dylan 250 mg tablet RxNorm: 872495 1 Tablet(s) PO UD 06/05/2015 07/06/2015 Inactive z pack amlodipine 5 mg tablet RxNorm: 899418 1 Tablet(s) PO daily 03/29/2016 Inactive Zetia 10 mg tablet RxNorm: 660406 1 Tablet(s) PO daily 201506/14/2015 Inactive valsartan 160 mg tablet RxNorm: 098708 1 Tablet(s) PO daily 07/07/2015 Inactive Lipitor 10 mg tablet RxNorm: 039510 1 Tablet(s) PO QHS 201505/18/2015 Inactive Lipitor 10 mg tablet RxNorm: 062801 1 Tablet(s) PO QHS 201504/27/2015 Inactive Zithromax 250 mg tablet RxNorm: 396939 Tablet(s) PO UD 201504/28/2015 Inactive Keflex 500 mg capsule RxNorm: 667881 1 Capsule(s) PO TID 201503/22/2015 Inactive Keflex 500 mg capsule RxNorm: 770334 1 Capsule(s) PO TID 201504/01/2015 Inactive Xanax 0.25 mg tablet RxNorm: 665971 1 Tablet(s) PO TID as needed anxiety 03/12/2015 07/04/2016 Inactive carvedilol 25 mg tablet RxNorm: 976529 1 Tablet(s) PO BID 03/1201/31/2016 Inactive amlodipine 5 mg tablet RxNorm: 051414 1 Tablet(s) PO BID 201505/18/2015 Inactive Diflucan 100 mg tablet RxNorm: 205485 1 Tablet(s) PO daily 03/21/2015 Inactive Diflucan 100 mg tablet RxNorm: 046277 1 Tablet(s) PO daily 02/14/2015 Inactive Diflucan 100 mg tablet RxNorm: 414897 1 Tablet(s) PO daily 06/201401/05/2015 Inactive Diflucan 100 mg tablet RxNorm: 939827 1 Tablet(s) PO daily 06/201412/31/2014 Inactive nystatin 100,000 unit/mL oral suspension RxNorm: 075321 5 Milliliter(s) PO QID 12/24/2014 06/14/2015 Inactive nystatin 100,000 unit/mL oral suspension RxNorm: 042650 5 Milliliter(s) PO QID 12/24/2014 12/23/2014 Inactive Zithromax 250 mg tablet RxNorm: 548991 1 Tablet(s) PO daily 12/19/2014 Inactive Zithromax 250 mg tablet RxNorm: 724039 1 Tablet(s) PO daily 12/14/2014 Inactive Flonase Allergy Relief 50 mcg/actuation nasal spray, suspension RxNorm: 1 [place] NASAL BID 12/11/2014 12/10/2014 Inactive Flonase Allergy Relief 50 mcg/actuation nasal spray, suspension RxNorm: 3010872 1 [place] NASAL BID 12/11/20142015 Inactive amlodipine 5 mg tablet RxNorm: 868435 2 Tablet(s) PO daily 11/13/2014 Inactive amlodipine 5 mg tablet RxNorm: 007527 2 Tablet(s) PO daily 03/11/2015 Inactive Lotrisone 1 %-0.05 % topical cream RxNorm: 064385 1 TOP BID until healed 10/17/2014 10/30/2014 Inactive Lotrisone 1 %-0.05 % topical cream RxNorm: 290362 1 TOP BID until healed 10/16/2014 10/16/2014 Inactive Lotrisone 1 %-0.05 % topical cream RxNorm: 568813 1 TOP BID until healed 10/06/2014 10/15/2014 Inactive Keflex 500 mg capsule RxNorm: 626413 1 Capsule(s) PO TID 201408/11/2014 Inactive Keflex 500 mg capsule RxNorm: 781473 1 Capsule(s) PO TID 201408/18/2014 Inactive clotrimazole 1 % topical solution RxNorm: 602742 1 Drop(s) TOP BID No Start Date Active Vitamin D3 5,000 unit tablet RxNorm: 716496 1 Tablet(s) PO daily No Start Date Active guaifenesin 400 mg tablet RxNorm: 910755 1 Tablet(s) PO BID as needed No Start Date 08/03/2016 Inactive Lotrisone 1 %-0.05 % topical cream RxNorm: 178069 1 TOP BID until healed No Start Date 10/05/2014 Inactive lisinopril 40 mg tablet RxNorm: 357524 1 Tablet(s) PO daily No Start Date 05/18/2015 Inactive amlodipine 5 mg tablet RxNorm: 402848 1 Tablet(s) PO daily No Start Date 11/13/2014 Inactive indapamide 1.25 mg tablet RxNorm: 864551 1 Tablet(s) PO daily No Start Date 01/31/2016 Inactive aspirin 81 mg tablet RxNorm: 299112 1 Tablet(s) PO daily No Start Date 02/07/2017 Inactive Medication Administered Medication Codes Instructions Start Date Status Kenalog 40 mg/mL suspension for injection RxNorm: 0053367 1Milliliter 07/28/2017 No longer Active Kenalog 40 mg/mL suspension for injection RxNorm: 6074779 Milliliter 12/18/2015 No longer Active Immunizations Vaccine Codes Date Status Influenza CVX: 141 11/13/2017 completed Influenza CVX: 141 12/05/2016 completed Influenza CVX: 141 11/26/2015 completed PPD Unknown 06/05/2015 completed Influenza CVX: 141 12/01/2014 completed Influenza CVX: 141 11/27/2012 completed Pneumococcal CVX: 33 11/28/2011 completed Assessments Condition Codes Effective Dates Essential (primary) hypertension ICD-10: I10 ICD-9: 401.1 06/14/2018 Localized edema ICD-10: R60.0 ICD-9: 782.3 06/14/2018 Unilateral primary osteoarthritis, left knee ICD-10: M17.12 ICD-9: 715.96 05/22/2018 Essential (primary) hypertension ICD-10: I10 ICD-9: 401.9 04/11/2018 Vitamin D deficiency, unspecified ICD-10: E55.9 ICD-9: 268.9 04/11/2018 Mixed hyperlipidemia ICD-10: E78.2 ICD-9: 272.2 04/11/2018 Other abnormal glucose ICD-10: R73.09 ICD-9: 790.29 04/11/2018 Hypo-osmolality and hyponatremia ICD-10: E87.1 ICD-9: 276.1 03/30/2018 Other acute sinusitis ICD-10: J01.80 ICD-9: 461.8 02/06/2018 Other allergic rhinitis ICD-10: J30.89 ICD-9: 477.8 02/06/2018 Encounter for screening mammogram for malignant neoplasm of breast ICD-10: Z12.31 ICD-9: V76.10 12/29/2017 VACCIN FOR INFLUENZA ICD-10: Z23 ICD-9: V04.81 11/13/2017 Chronic maxillary sinusitis ICD-10: J32.0 ICD-9: 473.0 11/13/2017 Tinea corporis ICD-10: B35.4 ICD-9: 110.5 08/29/2017 Acute recurrent maxillary sinusitis ICD-10: J01.01 ICD-9: 461.0 07/28/2017 Otalgia, bilateral ICD-10: H92.03 ICD-9: 388.70 06/20/2017 Pain in left knee ICD-10: M25.562 ICD-9: 719.46 06/20/2017 Pain in right knee ICD-10: M25.561 ICD-9: 719.46 06/20/2017 Gastro-esophageal reflux disease without esophagitis ICD-10 : K21.9 ICD-9: 530.81 05/26/2017 Encounter for general adult medical examination with abnormal findings ICD-10: Z00.01 ICD-9: V70.0 02/08/2017 Dysuria ICD-10: R30.0 ICD-9: 788.1 08/15/2016 Otalgia, right ear ICD-10: H92.01 ICD-9: 388.70 07/21/2016 Laceration without foreign body of left hand, subsequent encounter ICD-10: S61.412D ICD-9: V58.89 04/06/2016 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0 ICD-9: 112.0 01/12/2015 Pain in unspecified knee ICD-10: M25.569 ICD-9: 719.46 01/12/2015 Pain in right foot ICD-10: M79.671 ICD-9: 729.5 12/11/2014 ESSENTIAL HYPERTENSION ICD-9: 401.9 08/14 Chronic maxillary sinusitis ICD-9: 473.0 08/14/2014 Reason For Visit Reason For Visit Effective Dates Notes edema 06/14/2018 edema 06/07/2018 pre-op/surgery consult 05/22/2018 hypertension 04/11/2018 sinus congestion 02/06/2018 sinus congestion 12/08/2017 hypertension 11/13/2017 rash 08/29/2017 sinus pain 07/28/2017 sinus pain 06/20/2017 sinus congestion 05/26/2017 hypertension 04/24/2017 Annual Medicare Wellness Exam 02/08/2017 hypertension 12/22/2016 sinus congestion 12/16/2016 hypertension 08/15/2016 sinus congestion 08/02/2016 earache 07/21/2016 urinary urgency [...] Observation Code Item Item Code Result Date Cbc With Differential Ord2 WBC 9.05 K/ul 04/11/2018 Cbc With Differential Ord2 RBC 3.89 M/ul 04/11/2018 Cbc With Differential Ord2 HGB 12.0 g/dl 04/11/2018 Cbc With Differential Ord2 HCT 36.1 % 04/11/2018 Cbc With Differential Ord2 Neut% 49.8 % 04/11/2018 Cbc With Differential Ord2 MCV 92.8 fl 04/11/2018 Cbc With Differential Ord2 Lymph% 34.1 % 04/11/2018 Cbc With Differential Ord2 MCH 30.8 pg 04/11/2018 Cbc With Differential Ord2 [place]% 13.0 % 04/11/2018 Cbc With Differential Ord2 MCHC 33.2 pg 04/11/2018 Cbc With Differential Ord2 Eos% 2.3 % 04/11/2018 Cbc With Differential Ord2 PLT 244 K/ul 04/11/2018 Cbc With Differential Ord2 Baso% 0.8 % 04/11/2018 Cbc With Differential Ord2 RDW 12.7 % 04/11/2018 Cbc With Differential Ord2 Neut ABS# 4.50 K/ul 04/11/2018 Cbc With Differential Ord2 Lymph ABS# 3.09 K/ul 04/11/2018 Cbc With Differential Ord2 [place] ABS# 1.2 K/ul 04/11/2018 Cbc With Differential Ord2 Eos ABS# 0.2 K/ul 04/11/2018 Cbc With Differential Ord2 Baso ABS# 0.1 K/ul 04/11/2018 Tsh Ord6 TSH (3rd IS) 2.85 uIU/mL 04/11/2018 %Hba1C Fxl146 % HbA1c 06468-8 7.1 % 04/11/2018 %Hba1C Fcy206 Gluc Ave 157 mg/dL 04/11/2018 Lipid Ord30 CHOL 150 mg/dL 04/11/2018 Lipid Ord30 HDL 38.0 mg/dl 04/11/2018 Lipid Ord30 TRIG 203 mg/dL 04/11/2018 Lipid Ord30 LDL 71 mg/dL 04/11/2018 Lipid Ord30 C/HDL 3.9 Ratio 04/11/2018 Vitamin D 25 Oh [id number] VITAMIN D, 25 HYDROXY 48.86 ng/mL Comp Metabolic Xnp898 NA 138 mEq/L 04/11/2018 Comp Metabolic Ecz696 K 4.4 mEq/L 04/11/2018 Comp Metabolic Lva118 CL 101 mEq/L 04/11/2018 Comp Metabolic Kkr870 CO2 29.0 mEq/L 04/11/2018 Comp Metabolic Efb497 ANION GAP 12 04/11/2018 Comp Metabolic Iua111 GLUCOSE 120 mg/dL 04/11/2018 Comp Metabolic Orc051 Creat 1.2 mg/dL 04/11/2018 Comp Metabolic Fyg872 eGFR 47 ml/min/1.73m2 04/11/2018 Comp Metabolic Ljy480 BUN 23 mg/dL 04/11/2018 Comp Metabolic Quz882 B/C Ratio 19.7 Ratio 04/11/2018 Comp Metabolic Skd197 CALCIUM 10.3 mg/dL 04/11/2018 Comp Metabolic Ncg517 ALK PHOS 40 U/L 04/11/2018 Comp Metabolic Mta924 AST(SGOT) 15 U/L 04/11/2018 Comp Metabolic Rmn218 ALT(SGPT) 9 U/L 04/11/2018 Comp Metabolic Rwx520 BILI T 1.0 mg/dL 04/11/2018 Comp Metabolic Xfb996 ALBUMIN 4.3 g/dL 04/11/2018 Comp Metabolic Mgd196 TPRO 6.8 g/dL 04/11/2018 Comp Metabolic Rit584 GLOB 2.5 g/dL 04/11/2018 Comp Metabolic Ohg820 A/G Ratio 1.7 Ratio 04/11/2018 Comp Metabolic Upy443 Osmo 281 mOsmo 04/11/2018 %Hba1C Snv004 % HbA1c 91135-4 6.5 % 12/01/2016 %Hba1C Ezc388 Gluc Ave 140 mg/dL 12/01/2016 Lipid Ord30 CHOL 166 mg/dL 12/01/2016 Lipid Ord30 HDL 39.0 mg/dl 12/01/2016 Lipid Ord30 TRIG 169 mg/dL 12/01/2016 Lipid Ord30 LDL 93 mg/dL 12/01/2016 Lipid Ord30 C/HDL 4.3 Ratio 12/01/2016 Urine Culture Ucult Complete >100,000 col/ml aerobic [...] 13.0 g/dl 04/12/2016 Cbc With Differential Ord2 HCT 38.8 % 04/12/2016 Cbc With Differential Ord2 Neut% 49.2 % 04/12/2016 Cbc With Differential Ord2 MCV 93.3 fl 04/12/2016 Cbc With Differential Ord2 Lymph% 35.4 % 04/12/2016 Cbc With Differential Ord2 MCH 31.3 pg 04/12/2016 Cbc With Differential Ord2 [place]% 13.3 % 04/12/2016 Cbc With Differential Ord2 [...] 2.85 K/ul 04/12/2016 Cbc With Differential Ord2 [place] ABS# 1.1 K/ul 04/12/2016 Cbc With Differential Ord2 Eos ABS# 0.1 K/ul 04/12/2016 Cbc With Differential Ord2 Baso ABS# 0.0 K/ul 04/12/2016 Comp Metabolic Wja083 NA 129 mEq/L 04/12/2016 Comp Metabolic Gbb797 K 4.0 mEq/L 04/12/2016 Comp Metabolic Zry885 CL 93 mEq/L 04/12/2016 Comp Metabolic Yqn673 CO2 29.0 mEq/L 04/12/2016 Comp Metabolic Pim184 ANION GAP 11 04/12/2016 Comp Metabolic Yxa227 GLUCOSE 100 mg/dL 04/12/2016 Comp Metabolic Zfk523 Creat 1.0 mg/dL 04/12/2016 Comp Metabolic Vbs248 eGFR 55 ml/min/1.73m2 04/12/2016 Comp Metabolic Mtz169 BUN 19 mg/dL 04/12/2016 Comp Metabolic Fak562 B/C Ratio 18.8 Ratio 04/12/2016 Comp Metabolic Sdk921 CALCIUM 9.3 mg/dL 04/12/2016 Comp Metabolic Aru035 ALK PHOS 38 U/L 04/12/2016 Comp Metabolic Ggg784 AST(SGOT) 17 U/L 04/12/2016 Comp Metabolic Suh262 ALT(SGPT) 11 U/L 04/12/2016 Comp Metabolic Szg266 BILI T 1.0 mg/dL 04/12/2016 Comp Metabolic Cgg024 ALBUMIN 4.2 g/dL 04/12/2016 Comp Metabolic Ics253 TPRO 6.6 g/dL 04/12/2016 Comp Metabolic Zji928 GLOB 2.4 g/dL 04/12/2016 Comp Metabolic Ybn836 A/G Ratio 1.8 Ratio 04/12/2016 Comp Metabolic Sji479 Osmo 261 mOsmo 04/12/2016 Lipid Ord30 CHOL 265 mg/dL 04/12/2016 Lipid Ord30 HDL 42.0 mg/dl 04/12/2016 Lipid Ord30 TRIG 246 mg/dL 04/12/2016 Lipid Ord30 LDL 174 mg/dL 04/12/2016 Lipid Ord30 C/HDL 6.3 Ratio 04/12/2016 Tsh Ord6 hTSH II 2.49 uIU/mL 04/12/2016 Tsh Ord6 hTSH II 1.83 uIU/mL 06/12/2015 Comp Metabolic Mos788 NA 137 mEq/L 06/12/2015 Comp Metabolic Drs287 K 4.4 mEq/L 06/12/2015 Comp Metabolic Csv717 CL 103 mEq/L 06/12/2015 Comp Metabolic Iig554 CO2 27.0 mEq/L 06/12/2015 Comp Metabolic Soq796 ANION GAP 11 06/12/2015 Comp Metabolic Nuk621 GLUCOSE 87 mg/dL 06/12/2015 Comp Metabolic Dzi862 Creat 1.3 mg/dL 06/12/2015 Comp Metabolic Jwv656 eGFR 43 ml/min/1.73m2 06/12/2015 Comp Metabolic Wqn837 BUN 32 mg/dL 06/12/2015 Comp Metabolic Cbj585 B/C Ratio 25.4 Ratio 06/12/2015 Comp Metabolic Khm399 CALCIUM 9.5 mg/dL 06/12/2015 Comp Metabolic Ohk001 ALK PHOS 36 U/L 06/12/2015 Comp Metabolic Jcq613 AST(SGOT) 16 U/L 06/12/2015 Comp Metabolic Yyz752 ALT(SGPT) 17 U/L 06/12/2015 Comp Metabolic Fpc431 BILI T 1.0 mg/dL 06/12/2015 Comp Metabolic Pxj976 ALBUMIN 4.1 g/dL 06/12/2015 Comp Metabolic Dah159 TPRO 6.5 g/dL 06/12/2015 Comp Metabolic Rxu311 GLOB 2.5 g/dL 06/12/2015 Comp Metabolic Bkd212 A/G Ratio 1.7 Ratio 06/12/2015 Comp Metabolic Iox940 Osmo 280 mOsmo 06/12/2015 Lipid Ord30 CHOL [...] 30.6 pg 06/12/2015 Cbc With Differential Ord2 [place]% 11.0 % 06/12/2015 Cbc With Differential Ord2 [...] 1.96 K/ul 06/12/2015 Cbc With Differential Ord2 [place] ABS# 0.9 K/ul 06/12/2015 Cbc With Differential [...] 30.3 pg 03/12/2015 Cbc With Differential Ord2 [place]% 10.7 % 03/12/2015 Cbc With Differential Ord2 [...] 2.00 K/ul 03/12/2015 Cbc With Differential Ord2 [place] ABS# 1.0 K/ul 03/12/2015 Cbc With Differential Ord2 [place] ABS# 0.1 K/ul 03/12/2015 Cbc With Differential Ord2 Baso ABS# 0.0 K/ul 03/12/2015 Cbc With Differential Ord2 New Analyzer Notice Please note new ref ranges starting 03-11-2015 due to implemntation of new five part differential hematolgy analyzer. 03/12/2015 Comp Metabolic Lcu094 NA 139 mEq/L 03/12/2015 Comp Metabolic Cyx207 K 4.2 mEq/L 03/12/2015 Comp Metabolic Hcd838 CL 101 mEq/L 03/12/2015 Comp Metabolic Aza466 CO2 28.0 mEq/L 03/12/2015 Comp Metabolic Zvm787 ANION GAP 14 03/12/2015 Comp Metabolic Poq679 GLUCOSE 78 mg/dL 03/12/2015 Comp Metabolic Nlh496 Creat 1.1 mg/dL 03/12/2015 Comp Metabolic Uri691 eGFR 51 ml/min/1.73m2 03/12/2015 Comp Metabolic Aig972 BUN 17 mg/dL 03/12/2015 Comp Metabolic Rsl255 B/C Ratio 15.6 Ratio 03/12/2015 Comp Metabolic Hed515 CALCIUM 9.4 mg/dL 03/12/2015 Comp Metabolic Jqs227 ALK PHOS 46 U/L 03/12/2015 Comp Metabolic Zdn909 AST(SGOT) 16 U/L 03/12/2015 Comp Metabolic Hms508 ALT(SGPT) 12 U/L 03/12/2015 Comp Metabolic Kyt410 BILI T 0.8 mg/dL 03/12/2015 Comp Metabolic Gbu692 ALBUMIN 4.1 g/dL 03/12/2015 Comp Metabolic Ijj018 TPRO 6.6 g/dL 03/12/2015 Comp Metabolic Eyw648 GLOB 2.6 g/dL 03/12/2015 Comp Metabolic Fyb588 A/G Ratio 1.6 Ratio 03/12/2015 Comp Metabolic Fxp674 Osmo 278 mOsmo 03/12/2015 Lipid Ord30 CHOL [...] hTSH II 3.15 uIU/mL 12/01/2014 Comp Metabolic Ttp272 NA 132 mEq/L 12/01/2014 Comp Metabolic Zfu639 K 4.4 mEq/L 12/01/2014 Comp Metabolic Tqw820 CL 99 mEq/L 12/01/2014 Comp Metabolic Ipj372 CO2 27.0 mEq/L 12/01/2014 Comp Metabolic Asf151 ANION GAP 10 12/01/2014 Comp Metabolic Zsv254 GLUCOSE 86 mg/dL 12/01/2014 Comp Metabolic Fgq001 Creat 1.2 mg/dL 12/01/2014 Comp Metabolic Fyq845 eGFR 46 ml/min/1.73m2 12/01/2014 Comp Metabolic Rko541 BUN 32 mg/dL 12/01/2014 Comp Metabolic Jcs241 B/C Ratio 27.1 Ratio 12/01/2014 Comp Metabolic Tfd820 CALCIUM 9.4 mg/dL 12/01/2014 Comp Metabolic Lxc893 ALK PHOS 35 U/L 12/01/2014 Comp Metabolic Zwh848 AST(SGOT) 14 U/L 12/01/2014 Comp Metabolic Ppx855 ALT(SGPT) 13 U/L 12/01/2014 Comp Metabolic Acq456 BILI T 0.8 mg/dL 12/01/2014 Comp Metabolic Jhe368 ALBUMIN 4.0 g/dL 12/01/2014 Comp Metabolic Psb504 TPRO 6.8 g/dL 12/01/2014 Comp Metabolic Zje130 GLOB 2.8 g/dL 12/01/2014 Comp Metabolic Aqq132 A/G Ratio 1.4 Ratio 12/01/2014 Comp Metabolic Tlk794 Osmo 271 mOsmo 12/01/2014 Review of Systems System Result Effective Dates Constitutional No recent illness 2018 Constitutional No chills 06/14/2018 Constitutional No diaphoresis 06/14/2018 Constitutional No fever 06/14/2018 Eyes No eye erythema 06/14/2018 Ears/Nose/Throat/Neck No nasal discharge 06/14/2018 Cardiovascular No chest pain/pressure Cardiovascular No dyspnea 06/14/2018 Cardiovascular edema 06/14/2018 Respiratory No cough 06/14/2018 Respiratory No chest congestion 2018 Neurologic No alteration of consciousness 06/14/2018 Neurologic No mental status change 2018 Constitutional No recent illness 2018 Constitutional No chills 06/07/2018 Constitutional No diaphoresis 06/07/2018 Constitutional No fever 06/07/2018 Eyes No eye erythema 06/07/2018 Ears/Nose/Throat/Neck No nasal discharge 06/07/2018 Cardiovascular No chest pain/pressure 12/2018 Cardiovascular No dyspnea 06/07/2018 Cardiovascular edema 06/07/2018 Cardiovascular No near-syncope/dizziness 06/07/2018 Cardiovascular No palpitations 2018 Respiratory No cough 06/07/2018 Gastrointestinal No abdominal pain 2018 Neurologic No alteration of consciousness 06/07/2018 Neurologic No mental status change 2018 Constitutional No recent illness 2018 Constitutional No anorexia 05/22/2018 Constitutional No night sweats 2018 Constitutional No chills 05/22/2018 Constitutional No diaphoresis 05/22/2018 Constitutional fatigue 05/22/2018 Constitutional No fever 05/22/2018 Constitutional No insomnia 05/22/2018 Constitutional No malaise 05/22/2018 Constitutional No weight loss 05/22/2018 Constitutional No weight gain 05/22/2018 Eyes No eye discharge 05/22/2018 Ears/Nose/Throat/Neck dizziness 2018 Ears/Nose/Throat/Neck No headache 2018 Cardiovascular No chest pain/pressure Cardiovascular No dyspnea 05/22/2018 Cardiovascular No edema 05/22/2018 Respiratory No cough 05/22/2018 Gastrointestinal No abdominal pain 2018 Genitourinary/Nephrology No dysuria 05/22 Musculoskeletal joint complaint 2018 Dermatologic No rash 05/22/2018 Neurologic No alteration of consciousness 05/22/2018 Constitutional No recent illness 2018 Constitutional No chills 04/11/2018 Constitutional No diaphoresis 04/11/2018 Constitutional No fever 04/11/2018 Eyes No eye discharge 04/11/2018 Eyes No eye erythema 04/11/2018 Eyes No vision change 04/11/2018 Ears/Nose/Throat/Neck No nasal discharge 04/11/2018 Ears/Nose/Throat/Neck sinus congestion Cardiovascular No chest pain/pressure Cardiovascular No dyspnea 04/11/2018 Cardiovascular hypertension 04/11/2018 Cardiovascular No near-syncope/dizziness 04/11/2018 Respiratory No chest congestion 2018 Respiratory No cough 04/11/2018 Gastrointestinal No abdominal pain 2018 Gastrointestinal No constipation 2018 Gastrointestinal No diarrhea 04/11/2018 Gastrointestinal No nausea 04/11/2018 Gastrointestinal No vomiting 04/11/2018 Dermatologic No rash 04/11/2018 Dermatologic No scar 04/11/2018 Neurologic No alteration of consciousness 04/11/2018 Psychiatric No anxiety 04/11/2018 Psychiatric No depression 04/11/2018 Musculoskeletal stiffness 04/11/2018 Musculoskeletal joint complaint 2018 Constitutional recent illness 02/06/2018 Constitutional No chills 02/06/2018 Constitutional No diaphoresis 02/06/2018 Constitutional No fever 02/06/2018 Eyes No eye erythema 02/06/2018 Ears/Nose/Throat/Neck nasal allergies 12/2017 Ears/Nose/Throat/Neck nasal discharge 12/2017 Ears/Nose/Throat/Neck postnasal drip 12/2017 Ears/Nose/Throat/Neck sinus congestion Ears/Nose/Throat/Neck No sore throat 12/2017 Cardiovascular No chest pain/pressure 12/2017 Cardiovascular No dyspnea 02/06/2018 Respiratory No chest congestion 2017 Respiratory cough 02/06/2018 Respiratory No dyspnea 02/06/2018 Gastrointestinal No abdominal pain 2017 Gastrointestinal No constipation 2017 Gastrointestinal No diarrhea 02/06/2018 Gastrointestinal No nausea 02/06/2018 Gastrointestinal No vomiting 02/06/2018 Dermatologic No rash 02/06/2018 Neurologic No alteration of consciousness 02/06/2018 Neurologic No mental status change 2017 Eyes No eye erythema 12/08/2017 Ears/Nose/Throat/Neck nasal allergies 01/2018 Ears/Nose/Throat/Neck nasal discharge 01/2018 Ears/Nose/Throat/Neck otalgia 12/08/2017 Ears/Nose/Throat/Neck postnasal drip 01/2018 Ears/Nose/Throat/Neck sinus congestion Cardiovascular No chest pain/pressure 01/2018 Respiratory No cough 12/08/2017 Gastrointestinal No abdominal pain 2017 Genitourinary/Nephrology No dysuria 12/08 Musculoskeletal No joint complaint 2017 Dermatologic No rash 12/08/2017 Neurologic No alteration of consciousness 12/08/2017 Neurologic No mental status change 2017 Constitutional recent illness 12/08/2017 Constitutional No chills 12/08/2017 Constitutional No diaphoresis 12/08/2017 Constitutional No fever 12/08/2017 Constitutional No recent illness 2017 Constitutional No chills 11/13/2017 Constitutional No diaphoresis 11/13/2017 Constitutional No fever 11/13/2017 Eyes No eye discharge 11/13/2017 Eyes No eye erythema 11/13/2017 Eyes No vision change 11/13/2017 Ears/Nose/Throat/Neck No nasal discharge 11/13/2017 Cardiovascular No chest pain/pressure Cardiovascular No dyspnea 11/13/2017 Cardiovascular hypertension 11/13/2017 Cardiovascular No near-syncope/dizziness 11/13/2017 Respiratory No chest congestion 2017 Respiratory No cough 11/13/2017 Gastrointestinal No abdominal pain 2017 Gastrointestinal No constipation 2017 Gastrointestinal No diarrhea 11/13/2017 Gastrointestinal No nausea 11/13/2017 Gastrointestinal No vomiting 11/13/2017 Dermatologic No rash 11/13/2017 Dermatologic No scar 11/13/2017 Neurologic No alteration of consciousness 11/13/2017 Psychiatric No anxiety 11/13/2017 Psychiatric No depression 11/13/2017 Ears/Nose/Throat/Neck sinus congestion Constitutional No recent illness 2017 Constitutional No chills 08/29/2017 Constitutional No diaphoresis 08/29/2017 Constitutional No fever 08/29/2017 Eyes No blindness 08/29/2017 Ears/Nose/Throat/Neck No nasal discharge 08/29/2017 Cardiovascular No chest pain/pressure 04/2017 Cardiovascular No dyspnea 08/29/2017 Respiratory No cough 08/29/2017 Respiratory No dyspnea 08/29/2017 Neurologic No alteration of consciousness 08/29/2017 Neurologic No mental status change 2017 Dermatologic rash 08/29/2017 Musculoskeletal joint complaint 2017 Gastrointestinal No abdominal pain 2017 Genitourinary/Nephrology No dysuria 08/29 Constitutional recent illness 07/28/2017 Constitutional No anorexia 07/28/2017 Constitutional No night sweats 2017 Constitutional No chills 07/28/2017 Constitutional No diaphoresis 07/28/2017 Constitutional fatigue 07/28/2017 Constitutional No fever 07/28/2017 Constitutional No insomnia 07/28/2017 Constitutional No malaise 07/28/2017 Constitutional No weight loss 07/28/2017 Constitutional No weight gain 07/28/2017 Eyes No blindness 07/28/2017 Ears/Nose/Throat/Neck nasal allergies 02/2017 Ears/Nose/Throat/Neck nasal discharge 02/2017 Ears/Nose/Throat/Neck otalgia 07/28/2017 Ears/Nose/Throat/Neck postnasal drip 02/2017 Ears/Nose/Throat/Neck sinus congestion Cardiovascular No chest pain/pressure 02/2017 Respiratory No cough 07/28/2017 Gastrointestinal No abdominal pain 2017 Genitourinary/Nephrology No dysuria 07/28 Musculoskeletal No joint complaint 2017 Dermatologic No rash 07/28/2017 Neurologic No alteration of consciousness 07/28/2017 Neurologic No mental status change 2017 Constitutional recent illness 06/20/2017 Constitutional No chills 06/20/2017 Constitutional No diaphoresis 06/20/2017 Constitutional fatigue 06/20/2017 Constitutional No fever 06/20/2017 Eyes No eye erythema 06/20/2017 Ears/Nose/Throat/Neck nasal allergies Ears/Nose/Throat/Neck nasal discharge Ears/Nose/Throat/Neck otalgia 06/20/2017 Ears/Nose/Throat/Neck postnasal drip Ears/Nose/Throat/Neck sinus congestion Cardiovascular No chest pain/pressure Respiratory No dyspnea 06/20/2017 Gastrointestinal No abdominal pain 2017 Neurologic No alteration of consciousness 06/20/2017 Neurologic No mental status change 2017 Musculoskeletal joint complaint 2017 Constitutional recent illness 05/26/2017 Constitutional No chills 05/26/2017 Constitutional No diaphoresis 05/26/2017 Constitutional No fever 05/26/2017 Eyes No eye erythema 05/26/2017 Ears/Nose/Throat/Neck nasal allergies Ears/Nose/Throat/Neck nasal discharge Ears/Nose/Throat/Neck postnasal drip Ears/Nose/Throat/Neck sinus congestion Cardiovascular No chest pain/pressure Cardiovascular No dyspnea 05/26/2017 Respiratory No chest congestion 2017 Respiratory cough 05/26/2017 Respiratory No dyspnea 05/26/2017 Gastrointestinal No abdominal pain 2017 Gastrointestinal No constipation 2017 Gastrointestinal No diarrhea 05/26/2017 Gastrointestinal No nausea 05/26/2017 Gastrointestinal No vomiting 05/26/2017 Dermatologic No rash 05/26/2017 Neurologic No alteration of consciousness 05/26/2017 Neurologic No mental status change 2017 Constitutional No chills 04/24/2017 Constitutional No fever 04/24/2017 Eyes No eye discharge 04/24/2017 Eyes No eye erythema 04/24/2017 Eyes No vision change 04/24/2017 Ears/Nose/Throat/Neck No nasal discharge 04/24/2017 Cardiovascular No chest pain/pressure Cardiovascular No dyspnea 04/24/2017 Cardiovascular hypertension 04/24/2017 Cardiovascular No near-syncope/dizziness 04/24/2017 Respiratory No chest congestion 2017 Respiratory No cough 04/24/2017 Gastrointestinal No abdominal pain 2017 Gastrointestinal No constipation 2017 Gastrointestinal No diarrhea 04/24/2017 Gastrointestinal No nausea 04/24/2017 Gastrointestinal No vomiting 04/24/2017 Dermatologic No rash 04/24/2017 Dermatologic No scar 04/24/2017 Neurologic No alteration of consciousness 04/24/2017 Constitutional No recent illness 2017 Constitutional No diaphoresis 04/24/2017 Constitutional No recent illness 2016 Constitutional No chills 02/08/2017 Constitutional No diaphoresis 02/08/2017 Constitutional No fever 02/08/2017 Eyes No eye erythema 02/08/2017 Ears/Nose/Throat/Neck No nasal discharge 02/08/2017 Cardiovascular No chest pain/pressure Cardiovascular No dyspnea 02/08/2017 Respiratory No cough 02/08/2017 Respiratory No dyspnea 02/08/2017 Neurologic No alteration of consciousness 02/08/2017 Neurologic No mental status change 2016 Constitutional No chills 12/22/2016 Constitutional No fatigue 12/22/2016 Constitutional No fever 12/22/2016 Constitutional No insomnia 12/22/2016 Constitutional No malaise 12/22/2016 Eyes No eye discharge 12/22/2016 Eyes No eye erythema 12/22/2016 Eyes No vision change 12/22/2016 Ears/Nose/Throat/Neck No headache 2016 Ears/Nose/Throat/Neck No nasal discharge 12/22/2016 Cardiovascular No chest pain/pressure Cardiovascular No dyspnea 12/22/2016 Cardiovascular edema 12/22/2016 Cardiovascular No near-syncope/dizziness 12/22/2016 Respiratory No chest congestion 2016 Respiratory No chest tightness 2016 Respiratory No cigarette smoking 2016 Respiratory No cough 12/22/2016 Gastrointestinal No abdominal pain 2016 Gastrointestinal No constipation 2016 Gastrointestinal No diarrhea 12/22/2016 Gastrointestinal No nausea 12/22/2016 Gastrointestinal No vomiting 12/22/2016 Musculoskeletal No stiffness 12/22/2016 Musculoskeletal No arthralgia(s) 2016 Dermatologic No rash 12/22/2016 Dermatologic No scar 12/22/2016 Neurologic No alteration of consciousness 12/22/2016 Psychiatric No anxiety 12/22/2016 Psychiatric No depression 12/22/2016 Cardiovascular hypertension 12/22/2016 Constitutional recent illness 12/16/2016 Constitutional No chills 12/16/2016 Constitutional No diaphoresis 12/16/2016 Constitutional No fever 12/16/2016 Eyes No eye erythema 12/16/2016 Ears/Nose/Throat/Neck nasal allergies Ears/Nose/Throat/Neck nasal discharge Ears/Nose/Throat/Neck postnasal drip Ears/Nose/Throat/Neck sinus congestion Ears/Nose/Throat/Neck No sore throat Cardiovascular No chest pain/pressure Cardiovascular No dyspnea 12/16/2016 Respiratory No chest congestion 2016 Respiratory cough 12/16/2016 Respiratory No dyspnea 12/16/2016 Gastrointestinal No abdominal pain 2016 Gastrointestinal No constipation 2016 Gastrointestinal No diarrhea 12/16/2016 Gastrointestinal No nausea 12/16/2016 Gastrointestinal No vomiting 12/16/2016 Dermatologic No rash 12/16/2016 Neurologic No alteration of consciousness 12/16/2016 Neurologic No mental status change 2016 Constitutional No chills 08/15/2016 Constitutional No fatigue 08/15/2016 Constitutional No fever 08/15/2016 Constitutional No insomnia 08/15/2016 Constitutional No malaise 08/15/2016 Eyes No eye discharge 08/15/2016 Eyes No eye erythema 08/15/2016 Eyes No vision change 08/15/2016 Ears/Nose/Throat/Neck No headache 2016 Ears/Nose/Throat/Neck No nasal discharge 08/15/2016 Cardiovascular No chest pain/pressure Cardiovascular No dyspnea 08/15/2016 Cardiovascular edema 08/15/2016 Cardiovascular No near-syncope/dizziness 08/15/2016 Respiratory No chest congestion 2016 Respiratory No chest tightness 2016 Respiratory No cigarette smoking 2016 Respiratory No cough 08/15/2016 Gastrointestinal No abdominal pain 2016 Gastrointestinal No constipation 2016 Gastrointestinal No diarrhea 08/15/2016 Gastrointestinal No nausea 08/15/2016 Gastrointestinal No vomiting 08/15/2016 Musculoskeletal No stiffness 08/15/2016 Musculoskeletal No arthralgia(s) 2016 Dermatologic No rash 08/15/2016 Dermatologic No scar 08/15/2016 Neurologic No alteration of consciousness 08/15/2016 Psychiatric No anxiety 08/15/2016 Psychiatric No depression 08/15/2016 Constitutional recent illness 08/02/2016 Constitutional No chills [...] Result Effective Dates Notes Full Exam - General 1994 Constitutional general appearance Overall: well developed 06/14/2018 None Full Exam - General 1994 Constitutional general appearance Overall: in no acute distress 06/14/2018 None Full Exam - General 1994 Constitutional general appearance Overall: well nourished 06/14/2018 None Full Exam - General 1994 Eyes conjunctiva /eyelids Overall: eyelids normal 06/14/2018 None Full Exam - General 1994 Eyes conjunctiva /eyelids Overall: cornea clear 06/14/2018 None Full Exam - General 1994 Eyes conjunctiva /eyelids Overall: conjunctiva clear 06/14/2018 None Full Exam - General 1994 Ears/Nose/Throat lips/teeth/gingiva Overall: benign lips 06/14/2018 None Full Exam - General 1994 Ears/Nose/Throat oral cavity/pharynx/larynx Overall: oral mucosa clear 06/14/2018 None Full Exam - General 1994 Respiratory respiratory effort/rhythm Overall: normal rate 06/14/2018 None Full Exam - General 1994 Respiratory respiratory effort/rhythm Overall: no retractions 06/14/2018 None Full Exam - General 1994 Respiratory auscultation Overall: breath sounds clear bilaterally 06/14/2018 None Full Exam - General 1994 Cardiovascular auscultation of heart Overall: regular rate 06/14/2018 None Full Exam - General 1994 Cardiovascular extremities Edema present: pitting 06/14/2018 None Full Exam - General 1994 Cardiovascular extremities Edema present: severity 1+ - 4 +: trace 06/14/2018 None Full Exam - General 1994 Cardiovascular extremities Edema present: bilateral 06/14/2018 None Full Exam - General 1994 Cardiovascular extremities Edema present: to leg 06/14/2018 None Full Exam - General 1994 Musculoskeletal head and neck Overall: head atraumatic 06/14/2018 None Full Exam - General 1994 Neurologic cranial nerves Overall: crainial nerves 2 - 12 grossly intact 06/14/2018 None Full Exam - General 1994 Psychiatric orientation/consciousness Overall: oriented to person, place and time 06/14/2018 None Full Exam - General 1994 Psychiatric mood and affect Overall: normal mood and affect 06/14/2018 None Full Exam - General 1994 Constitutional general appearance Overall: well developed 06/07/2018 None Full Exam - General 1994 Constitutional general appearance Overall: in no acute distress 06/07/2018 None Full Exam - General 1994 Constitutional general appearance Overall: well nourished 06/07/2018 None Full Exam - General 1994 Eyes conjunctiva /eyelids Overall: eyelids normal 06/07/2018 None Full Exam - General 1994 Eyes conjunctiva /eyelids Overall: cornea clear 06/07/2018 None Full Exam - General 1994 Eyes conjunctiva /eyelids Overall: conjunctiva clear 06/07/2018 None Full Exam - General 1994 Ears/Nose/Throat oral cavity/pharynx/larynx Overall: oral mucosa clear 06/07/2018 None Full Exam - General 1994 Respiratory respiratory effort/rhythm Overall: normal rate 06/07/2018 None Full Exam - General 1994 Respiratory respiratory effort/rhythm Overall: no retractions 06/07/2018 None Full Exam - General 1994 Respiratory auscultation Overall: breath sounds clear bilaterally 06/07/2018 None Full Exam - General 1994 Cardiovascular auscultation of heart Overall: regular rate 06/07/2018 None Full Exam - General 1994 Cardiovascular auscultation of heart Overall: normal heart sounds 06/07/2018 None Full Exam - General 1994 Cardiovascular extremities Edema present: pitting 06/07/2018 None Full Exam - General 1994 Cardiovascular extremities Edema present: severity 1+ - 4 +: 3+ 06/07/2018 None Full Exam - General 1994 Cardiovascular extremities Edema present: bilateral 06/07/2018 None Full Exam - General 1994 Cardiovascular extremities Edema present: to thighs 06/07/2018 None Full Exam - General 1994 Musculoskeletal head and neck Overall: head atraumatic 06/07/2018 None Full Exam - General 1994 Neurologic cranial nerves Overall: crainial nerves 2 - 12 grossly intact 06/07/2018 None Full Exam - General 1994 Psychiatric orientation/consciousness Overall: oriented to person, place and time 06/07/2018 None Full Exam - General 1994 Psychiatric mood and affect Overall: normal mood and affect 06/07/2018 None Full Exam - General 1994 Constitutional general appearance Overall: well developed 05/22/2018 None Full Exam - General 1994 Constitutional general appearance Overall: in no acute distress 05/22/2018 None Full Exam - General 1994 Constitutional general appearance Overall: well nourished 05/22/2018 None Full Exam - General 1994 Constitutional general appearance Hygiene/Attention to Grooming: good hygiene 05/22/2018 None Full Exam - General 1994 Eyes conjunctiva /eyelids Overall: conjunctiva clear 05/22/2018 None Full Exam - General 1994 Eyes conjunctiva /eyelids Overall: cornea clear 05/22/2018 None Full Exam - General 1994 Eyes conjunctiva /eyelids Overall: eyelids normal 05/22/2018 None Full Exam - General 1994 Ears/Nose/Throat otoscopic exam Overall: external auditory canals clear 05/22/2018 None Full Exam - General 1994 Ears/Nose/Throat otoscopic exam Overall: tympanic membranes clear 05/22/2018 None Full Exam - General 1994 Ears/Nose/Throat oral cavity/pharynx/larynx Overall: oral mucosa clear 05/22/2018 None Full Exam - General 1994 Respiratory auscultation Overall: breath sounds clear bilaterally 05/22/2018 None Full Exam - General 1994 Respiratory respiratory effort/rhythm Overall: no retractions 05/22/2018 None Full Exam - General 1994 Respiratory respiratory effort/rhythm Overall: normal rate 05/22/2018 None Full Exam - General 1994 Cardiovascular auscultation of heart Overall: regular rate 05/22/2018 None Full Exam - General 1994 Cardiovascular auscultation of heart Overall: normal heart sounds 05/22/2018 None Full Exam - General 1994 Abdomen abdominal exam Overall: no tenderness 05/22/2018 None Full Exam - General 1994 Abdomen abdominal exam Overall: normal bowel sounds 05/22/2018 None Full Exam - General 1994 Lymphatic neck nodes Overall: anterior cervical chain benign 05/22/2018 None Full Exam - General 1994 Lymphatic neck nodes Overall: posterior cervical chain benign 05/22/2018 None Full Exam - General 1994 Musculoskeletal head and neck Overall: head atraumatic 05/22/2018 None Full Exam - General 1994 Neurologic cranial nerves Overall: crainial nerves 2 - 12 grossly intact 05/22/2018 None Full Exam - General 1994 Psychiatric orientation/consciousness Overall: oriented to person, place and time 05/22/2018 None Full Exam - General 1994 Psychiatric mood and affect Overall: normal mood and affect 05/22/2018 None Full Exam - General 1994 Psychiatric appearance Overall: well-groomed, good eye contact 05/22/2018 None Full Exam - General 1994 Constitutional general appearance Overall: well developed 04/11/2018 None Full Exam - General 1994 Constitutional general appearance Overall: in no acute distress 04/11/2018 None Full Exam - General 1994 Constitutional general appearance Overall: well nourished 04/11/2018 None Full Exam - General 1994 Constitutional general appearance Hygiene/Attention to Grooming: good hygiene 04/11/2018 None Full Exam - General 1994 Eyes conjunctiva /eyelids Overall: conjunctiva clear 04/11/2018 None Full Exam - General 1994 Eyes conjunctiva /eyelids Overall: cornea clear 04/11/2018 None Full Exam - General 1994 Eyes conjunctiva /eyelids Overall: eyelids normal 04/11/2018 None Full Exam - General 1994 Ears/Nose/Throat otoscopic exam Overall: external auditory canals clear 04/11/2018 None Full Exam - General 1994 Ears/Nose/Throat otoscopic exam Overall: tympanic membranes clear 04/11/2018 None Full Exam - General 1994 Ears/Nose/Throat internal nose Drainage: left 04/11/2018 None Full Exam - General 1994 Ears/Nose/Throat internal nose Drainage: right 04/11/2018 None Full Exam - General 1994 Ears/Nose/Throat internal nose Drainage: thick 04/11/2018 None Full Exam - General 1994 Ears/Nose/Throat lips/teeth/gingiva Lips: ulceration 04/11/2018 None Full Exam - General 1994 Ears/Nose/Throat oral cavity/pharynx/larynx Overall: oral mucosa clear 04/11/2018 None Full Exam - General 1994 Respiratory auscultation Overall: breath sounds clear bilaterally 04/11/2018 None Full Exam - General 1994 Respiratory respiratory effort/rhythm Overall: no retractions 04/11/2018 None Full Exam - General 1994 Respiratory respiratory effort/rhythm Overall: normal rate 04/11/2018 None Full Exam - General 1994 Cardiovascular auscultation of heart Overall: regular rate 04/11/2018 None Full Exam - General 1994 Cardiovascular auscultation of heart Overall: normal heart sounds 04/11/2018 None Full Exam - General 1994 Abdomen abdominal exam Overall: no tenderness 04/11/2018 None Full Exam - General 1994 Abdomen abdominal exam Overall: normal bowel sounds 04/11/2018 None Full Exam - General 1994 Lymphatic neck nodes Overall: anterior cervical chain benign 04/11/2018 None Full Exam - General 1994 Lymphatic neck nodes Overall: posterior cervical chain benign 04/11/2018 None Full Exam - General 1994 Musculoskeletal head and neck Overall: head atraumatic 04/11/2018 None Full Exam - General 1994 Neurologic cranial nerves Overall: crainial nerves 2 - 12 grossly intact 04/11/2018 None Full Exam - General 1994 Psychiatric orientation/consciousness Overall: oriented to person, place and time 04/11/2018 None Full Exam - General 1994 Psychiatric mood and affect Overall: normal mood and affect 04/11/2018 None Full Exam - General 1994 Psychiatric appearance Overall: well-groomed, good eye contact 04/11/2018 None Full Exam - ENT Constitutional general appearance Overall: well nourished 02/06/2018 None Full Exam - ENT Constitutional general appearance Overall: well developed 02/06/2018 None Full Exam - ENT Constitutional general appearance Overall: in no acute distress 02/06/2018 None Full Exam - ENT Ears/Nose/Throat otoscopic exam Left tympanic membrane: air -fluid level 02/06/2018 None Full Exam - ENT Ears/Nose/Throat otoscopic exam Right tympanic membrane: air-fluid level 02/06/2018 None Full Exam - ENT Ears/Nose/Throat nasal mucosa, septum, turbinates Drainage: clear 02/06/2018 None Full Exam - ENT Ears/Nose/Throat nasal mucosa, septum, turbinates Drainage: yellow 02/06/2018 None Full Exam - ENT Ears/Nose/Throat lips/ teeth/gingiva Overall: benign lips 02/06/2018 None Full Exam - ENT Ears/Nose/Throat oropharynx Posterior Pharynx: clear post nasal drainage 02/06/2018 None Full Exam - ENT Face and Head palpation Left maxillary sinus: tender 02/06/2018 None Full Exam - ENT Face and Head palpation Right maxillary sinus: tender 02/06/2018 None Full Exam - ENT Respiratory inspection Overall: no retractions 02/06/2018 None Full Exam - ENT Respiratory inspection Overall: normal rate 12/2017 None Full Exam - ENT Respiratory auscultation Overall: breath sounds clear bilaterally 02/06/2018 None Full Exam - ENT Cardiovascular auscultation of heart Overall: regular rate 02/06/2018 None Full Exam - ENT Cardiovascular auscultation of heart Overall: normal heart sounds 02/06/2018 None Full Exam - ENT Lymphatic palpation of lymph nodes Overall: anterior cervical chain benign 02/06/2018 None Full Exam - ENT Lymphatic palpation of lymph nodes Overall: posterior cervical chain benign 02/06/2018 None Full Exam - ENT Neurologic mood and affect Overall: normal mood 02/06/2018 None Full Exam - ENT Neurologic mood and affect Overall: normal affect 02/06/2018 None Full Exam - ENT Neurologic orientation Overall: oriented to person, place and time 02/06/2018 None Full Exam - ENT Ears/Nose/Throat otoscopic exam Left external auditory canal: partial cerumen occlusion 02/06/2018 None Full Exam - ENT Ears/Nose/Throat otoscopic exam Right external auditory canal: partial cerumen occlusion 02/06/2018 None Full Exam - ENT Constitutional general appearance Overall: well nourished 12/08/2017 None Full Exam - ENT Constitutional general appearance Overall: well developed 12/08/2017 None Full Exam - ENT Constitutional general appearance Overall: in no acute distress 12/08/2017 None Full Exam - ENT Ears/Nose/Throat otoscopic exam Left external auditory canal: partial cerumen occlusion 12/08/2017 None Full Exam - ENT Ears/Nose/Throat otoscopic exam Left tympanic membrane: not visualized 12/08/2017 None Full Exam - ENT Ears/Nose/Throat otoscopic exam Right tympanic membrane: not visualized 12/08/2017 None Full Exam - ENT Ears/Nose/Throat oropharynx Overall: oral mucosa clear 12/08/2017 None Full Exam - ENT Ears/Nose/Throat oropharynx Posterior Pharynx: clear post nasal drainage 12/08/2017 None Full Exam - ENT Face and Head palpation Left maxillary sinus: tender 12/08/2017 None Full Exam - ENT Face and Head palpation Right maxillary sinus: tender 12/08/2017 None Full Exam - ENT Respiratory inspection Overall: no retractions 12/08/2017 None Full Exam - ENT Respiratory inspection Overall: normal rate 01/2018 None Full Exam - ENT Respiratory auscultation Overall: breath sounds clear bilaterally 12/08/2017 None Full Exam - ENT Cardiovascular auscultation of heart Overall: regular rate 12/08/2017 None Full Exam - ENT Cardiovascular auscultation of heart Overall: normal heart sounds 12/08/2017 None Full Exam - ENT Lymphatic palpation of lymph nodes Overall: anterior cervical chain benign 12/08/2017 None Full Exam - ENT Lymphatic palpation of lymph nodes Overall: posterior cervical chain benign 12/08/2017 None Full Exam - ENT Neurologic mood and affect Overall: normal mood 12/08/2017 None Full Exam - ENT Neurologic mood and affect Overall: normal affect 12/08/2017 None Full Exam - ENT Neurologic orientation Overall: oriented to person, place and time 12/08/2017 None Full Exam - ENT Ears/Nose/Throat otoscopic exam Right external auditory canal: partial cerumen occlusion 12/08/2017 None Full Exam - General 1994 Constitutional general appearance Overall: well developed 11/13/2017 None Full Exam - General 1994 Constitutional general appearance Overall: in no acute distress 11/13/2017 None Full Exam - General 1994 Constitutional general appearance Overall: well nourished 11/13/2017 None Full Exam - General 1994 Constitutional general appearance Hygiene/Attention to Grooming: good hygiene 11/13/2017 None Full Exam - General 1994 Eyes conjunctiva /eyelids Overall: conjunctiva clear 11/13/2017 None Full Exam - General 1994 Eyes conjunctiva /eyelids Overall: cornea clear 11/13/2017 None Full Exam - General 1994 Eyes conjunctiva /eyelids Overall: eyelids normal 11/13/2017 None Full Exam - General 1994 Ears/Nose/Throat lips/teeth/gingiva Lips: ulceration 11/13/2017 None Full Exam - General 1994 Respiratory auscultation Overall: breath sounds clear bilaterally 11/13/2017 None Full Exam - General 1994 Respiratory respiratory effort/rhythm Overall: no retractions 11/13/2017 None Full Exam - General 1994 Respiratory respiratory effort/rhythm Overall: normal rate 11/13/2017 None Full Exam - General 1994 Cardiovascular auscultation of heart Overall: regular rate 11/13/2017 None Full Exam - General 1994 Cardiovascular auscultation of heart Overall: normal heart sounds 11/13/2017 None Full Exam - General 1994 Musculoskeletal head and neck Overall: head atraumatic 11/13/2017 None Full Exam - General 1994 Neurologic cranial nerves Overall: crainial nerves 2 - 12 grossly intact 11/13/2017 None Full Exam - General 1994 Psychiatric orientation/consciousness Overall: oriented to person, place and time 11/13/2017 None Full Exam - General 1994 Psychiatric mood and affect Overall: normal mood and affect 11/13/2017 None Full Exam - General 1994 Psychiatric appearance Overall: well-groomed, good eye contact 11/13/2017 None Full Exam - General 1994 Abdomen abdominal exam Overall: no tenderness 11/13/2017 None Full Exam - General 1994 Abdomen abdominal exam Overall: normal bowel sounds 11/13/2017 None Full Exam - General 1994 Lymphatic neck nodes Overall: anterior cervical chain benign 11/13/2017 None Full Exam - General 1994 Lymphatic neck nodes Overall: posterior cervical chain benign 11/13/2017 None Full Exam - General 1994 Ears/Nose/Throat otoscopic exam Overall: tympanic membranes clear 11/13/2017 None Full Exam - General 1994 Ears/Nose/Throat otoscopic exam Overall: external auditory canals clear 11/13/2017 None Full Exam - General 1994 Ears/Nose/Throat oral cavity/pharynx/larynx Overall: oral mucosa clear 11/13/2017 None Full Exam - General 1994 Ears/Nose/Throat internal nose Drainage: thick 11/13/2017 None Full Exam - General 1994 Ears/Nose/Throat internal nose Drainage: left 11/13/2017 None Full Exam - General 1994 Ears/Nose/Throat internal nose Drainage: right 11/13/2017 None Full Exam - General 1994 Constitutional general appearance Overall: well developed 08/29/2017 None Full Exam - General 1994 Constitutional general appearance Overall: in no acute distress 08/29/2017 None Full Exam - General 1994 Constitutional general appearance Overall: well nourished 08/29/2017 None Full Exam - General 1994 Eyes conjunctiva /eyelids Overall: conjunctiva clear 08/29/2017 None Full Exam - General 1994 Eyes conjunctiva /eyelids Overall: eyelids normal 08/29/2017 None Full Exam - General 1994 Respiratory respiratory effort/rhythm Overall: no retractions 08/29/2017 None Full Exam - General 1994 Respiratory respiratory effort/rhythm Overall: normal rate 08/29/2017 None Full Exam - General 1994 Musculoskeletal gait and station Overall: normal gait 08/29/2017 None Full Exam - General 1994 Musculoskeletal gait and station Overall: normal station 08/29/2017 None Full Exam - General 1994 Neurologic cranial nerves Overall: crainial nerves 2 - 12 grossly intact 08/29/2017 None Full Exam - General 1994 Psychiatric orientation/consciousness Overall: oriented to person, place and time 08/29/2017 None Full Exam - General 1994 Psychiatric mood and affect Overall: normal mood and affect 08/29/2017 None Full Exam - General 1994 Psychiatric appearance Overall: well-groomed, good eye contact 08/29/2017 None Full Exam - General 1994 Integument inspection of skin Location: inguinal area 08/29/2017 None Full Exam - General 1994 Integument inspection of skin Rash/Lesions: patch 08/29/2017 None Full Exam - General 1994 Integument inspection of skin Pigmentation: erythematous 08/29/2017 None Full Exam - ENT Constitutional general appearance Overall: well nourished 07/28/2017 None Full Exam - ENT Constitutional general appearance Overall: well developed 07/28/2017 None Full Exam - ENT Constitutional general appearance Overall: in no acute distress 07/28/2017 None Full Exam - ENT Ears/Nose/Throat otoscopic exam Left external auditory canal: partial cerumen occlusion 07/28/2017 None Full Exam - ENT Ears/Nose/Throat otoscopic exam Right external auditory canal: complete cerumen impaction 07/28/2017 None Full Exam - ENT Ears/Nose/Throat otoscopic exam Left tympanic membrane: not visualized 07/28/2017 None Full Exam - ENT Ears/Nose/Throat otoscopic exam Right tympanic membrane: not visualized 07/28/2017 None Full Exam - ENT Ears/Nose/Throat oropharynx Overall: oral mucosa clear 07/28/2017 None Full Exam - ENT Ears/Nose/Throat oropharynx Posterior Pharynx: clear post nasal drainage 07/28/2017 None Full Exam - ENT Face and Head palpation Left maxillary sinus: tender 07/28/2017 None Full Exam - ENT Face and Head palpation Right maxillary sinus: tender 07/28/2017 None Full Exam - ENT Respiratory inspection Overall: no retractions 07/28/2017 None Full Exam - ENT Respiratory inspection Overall: normal rate 02/2017 None Full Exam - ENT Respiratory auscultation Overall: breath sounds clear bilaterally 07/28/2017 None Full Exam - ENT Cardiovascular auscultation of heart Overall: regular rate 07/28/2017 None Full Exam - ENT Cardiovascular auscultation of heart Overall: normal heart sounds 07/28/2017 None Full Exam - ENT Lymphatic palpation of lymph nodes Overall: anterior cervical chain benign 07/28/2017 None Full Exam - ENT Lymphatic palpation of lymph nodes Overall: posterior cervical chain benign 07/28/2017 None Full Exam - ENT Neurologic mood and affect Overall: normal mood 07/28/2017 None Full Exam - ENT Neurologic mood and affect Overall: normal affect 07/28/2017 None Full Exam - ENT Neurologic orientation Overall: oriented to person, place and time 07/28/2017 None Full Exam - ENT Constitutional general appearance Overall: well nourished 06/20/2017 None Full Exam - ENT Constitutional general appearance Overall: well developed 06/20/2017 None Full Exam - ENT Constitutional general appearance Overall: in no acute distress 06/20/2017 None Full Exam - ENT Ears/Nose/Throat otoscopic exam Overall: external auditory canals normal 06/20/2017 None Full Exam - ENT Ears/Nose/Throat otoscopic exam Left tympanic membrane: erythematous 06/20/2017 mild Full Exam - ENT Ears/Nose/Throat otoscopic exam Right tympanic membrane: erythematous 06/20/2017 mild Full Exam - ENT Ears/Nose/Throat lips/ teeth/gingiva Overall: benign lips 06/20/2017 None Full Exam - ENT Ears/Nose/Throat oropharynx Overall: oral mucosa clear 06/20/2017 None Full Exam - ENT Ears/Nose/Throat oropharynx Oral mucosa: dry 06/20/2017 None Full Exam - ENT Face and Head palpation Left maxillary sinus: tender 06/20/2017 None Full Exam - ENT Face and Head palpation Right maxillary sinus: tender 06/20/2017 None Full Exam - ENT Respiratory inspection Overall: no retractions 06/20/2017 None Full Exam - ENT Respiratory inspection Overall: normal rate None Full Exam - ENT Respiratory auscultation Overall: breath sounds clear bilaterally 06/20/2017 None Full Exam - ENT Cardiovascular auscultation of heart Overall: regular rate 06/20/2017 None Full Exam - ENT Cardiovascular auscultation of heart Overall: normal heart sounds 06/20/2017 None Full Exam - ENT Lymphatic palpation of lymph nodes Overall: anterior cervical chain benign 06/20/2017 None Full Exam - ENT Lymphatic palpation of lymph nodes Overall: posterior cervical chain benign 06/20/2017 None Full Exam - ENT Neurologic mood and affect Overall: normal mood 06/20/2017 None Full Exam - ENT Neurologic mood and affect Overall: normal affect 06/20/2017 None Full Exam - ENT Neurologic orientation Overall: oriented to person, place and time 06/20/2017 None Full Exam - ENT Musculoskeletal right lower extremity Palpation - right knee: positive ballottement sign 06/20/2017 None Full Exam - ENT Musculoskeletal left lower extremity Palpation - left knee: crepitus 06/20/2017 None Full Exam - ENT Constitutional general appearance Overall: well nourished 05/26/2017 None Full Exam - ENT Constitutional general appearance Overall: well developed 05/26/2017 None Full Exam - ENT Constitutional general appearance Overall: in no acute distress 05/26/2017 None Full Exam - ENT Ears/Nose/Throat otoscopic exam Overall: external auditory canals normal 05/26/2017 None Full Exam - ENT Ears/Nose/Throat otoscopic exam Left tympanic membrane: air -fluid level 05/26/2017 None Full Exam - ENT Ears/Nose/Throat otoscopic exam Right tympanic membrane: air-fluid level 05/26/2017 None Full Exam - ENT Ears/Nose/Throat nasal mucosa, septum, turbinates Drainage: clear 05/26/2017 None Full Exam - ENT Ears/Nose/Throat nasal mucosa, septum, turbinates Drainage: yellow 05/26/2017 None Full Exam - ENT Ears/Nose/Throat oropharynx Oral mucosa: dry 05/26/2017 None Full Exam - ENT Ears/Nose/Throat oropharynx Posterior Pharynx: clear post nasal drainage 05/26/2017 None Full Exam - ENT Face and Head palpation Left maxillary sinus: tender 05/26/2017 None Full Exam - ENT Face and Head palpation Right maxillary sinus: tender 05/26/2017 None Full Exam - ENT Respiratory inspection Overall: no retractions 05/26/2017 None Full Exam - ENT Respiratory inspection Overall: normal rate None Full Exam - ENT Respiratory auscultation Overall: breath sounds clear bilaterally 05/26/2017 None Full Exam - ENT Cardiovascular auscultation of heart Overall: regular rate 05/26/2017 None Full Exam - ENT Cardiovascular auscultation of heart Overall: normal heart sounds 05/26/2017 None Full Exam - ENT Lymphatic palpation of lymph nodes Overall: anterior cervical chain benign 05/26/2017 None Full Exam - ENT Lymphatic palpation of lymph nodes Overall: posterior cervical chain benign 05/26/2017 None Full Exam - ENT Neurologic mood and affect Overall: normal mood 05/26/2017 None Full Exam - ENT Neurologic mood and affect Overall: normal affect 05/26/2017 None Full Exam - ENT Neurologic orientation Overall: oriented to person, place and time 05/26/2017 None Full Exam - General 1995 Constitutional general appearance Overall: well developed 04/24/2017 None Full Exam - General 1995 Constitutional general appearance Overall: in no acute distress 04/24/2017 None Full Exam - General 1994 Constitutional general appearance Overall: well nourished 04/24/2017 None Full Exam - General 1994 Constitutional general appearance Hygiene/Attention to Grooming: good hygiene 04/24/2017 None Full Exam - General 1994 Eyes conjunctiva /eyelids Overall: conjunctiva clear 04/24/2017 None Full Exam - General 1994 Eyes conjunctiva /eyelids Overall: cornea clear 04/24/2017 None Full Exam - General 1994 Eyes conjunctiva /eyelids Overall: eyelids normal 04/24/2017 None Full Exam - General 1994 Ears/Nose/Throat lips/teeth/gingiva Lips: ulceration 04/24/2017 None Full Exam - General 1994 Respiratory auscultation Overall: breath sounds clear bilaterally 04/24/2017 None Full Exam - General 1994 Respiratory respiratory effort/rhythm Overall: no retractions 04/24/2017 None Full Exam - General 1994 Respiratory respiratory effort/rhythm Overall: normal rate 04/24/2017 None Full Exam - General 1994 Cardiovascular auscultation of heart Overall: regular rate 04/24/2017 None Full Exam - General 1994 Cardiovascular auscultation of heart Overall: normal heart sounds 04/24/2017 None Full Exam - General 1994 Musculoskeletal head and neck Overall: head atraumatic 04/24/2017 None Full Exam - General 1994 Neurologic cranial nerves Overall: crainial nerves 2 - 12 grossly intact 04/24/2017 None Full Exam - General 1994 Psychiatric orientation/consciousness Overall: oriented to person, place and time 04/24/2017 None Full Exam - General 1994 Psychiatric mood and affect Overall: normal mood and affect 04/24/2017 None Full Exam - General 1994 Psychiatric appearance Overall: well-groomed, good eye contact 04/24/2017 None Full Exam - General 1994 Constitutional general appearance Overall: well developed 02/08/2017 None Full Exam - General 1994 Constitutional general appearance Overall: in no acute distress 02/08/2017 None Full Exam - General 1994 Constitutional general appearance Overall: well nourished 02/08/2017 None Full Exam - General 1994 Eyes conjunctiva /eyelids Overall: conjunctiva clear 02/08/2017 None Full Exam - General 1994 Eyes conjunctiva /eyelids Overall: eyelids normal 02/08/2017 None Full Exam - General 1994 Respiratory respiratory effort/rhythm Overall: no retractions 02/08/2017 None Full Exam - General 1994 Respiratory respiratory effort/rhythm Overall: normal rate 02/08/2017 None Full Exam - General 1994 Neurologic cranial nerves Overall: crainial nerves 2 - 12 grossly intact 02/08/2017 None Full Exam - General 1994 Psychiatric orientation/consciousness Overall: oriented to person, place and time 02/08/2017 None Full Exam - General 1994 Psychiatric mood and affect Overall: normal mood and affect 02/08/2017 None Full Exam - General 1994 Psychiatric appearance Overall: well-groomed, good eye contact 02/08/2017 None Full Exam - General 1994 Musculoskeletal gait and station Overall: normal station 02/08/2017 None Full Exam - General 1994 Musculoskeletal gait and station Overall: normal gait 02/08/2017 None Full Exam - General 1994 Constitutional general appearance Development: appears stated age 1012/22/2016 None Full Exam - General 1994 Constitutional general appearance Overall: well developed 12/22/2016 None Full Exam - General 1994 Constitutional general appearance Overall: in no acute distress 12/22/2016 None Full Exam - General 1994 Constitutional general appearance Overall: well nourished 12/22/2016 None Full Exam - General 1994 Constitutional general appearance Hygiene/Attention to Grooming: good hygiene 12/22/2016 None Full Exam - General 1994 Eyes conjunctiva /eyelids Overall: conjunctiva clear 12/22/2016 None Full Exam - General 1994 Eyes conjunctiva /eyelids Overall: cornea clear 12/22/2016 None Full Exam - General 1994 Eyes conjunctiva /eyelids Overall: eyelids normal 12/22/2016 None Full Exam - General 1994 Eyes pupils and irises Overall: pupils equal, round, reactive to light and accomodation 12/22/2016 None Full Exam - General 1994 Ears/Nose/Throat otoscopic exam Tympanic membrane: retracted 12/22/2016 None Full Exam - General 1994 Ears/Nose/Throat lips/teeth/gingiva Lips: ulceration 12/22/2016 None Full Exam - General 1994 Ears/Nose/Throat oral cavity/pharynx/larynx Overall: tonsils benign 12/22/2016 None Full Exam - General 1994 Ears/Nose/Throat oral cavity/pharynx/larynx Overall: no masses 12/22/2016 None Full Exam - General 1994 Ears/Nose/Throat oral cavity/pharynx/larynx Oral mucosa: dry 12/22/2016 None Full Exam - General 1994 Ears/Nose/Throat oral cavity/pharynx/larynx Oral mucosa: thrush 12/22/2016 None Full Exam - General 1994 Respiratory auscultation Overall: breath sounds clear bilaterally 12/22/2016 None Full Exam - General 1994 Respiratory respiratory effort/rhythm Overall: no retractions 12/22/2016 None Full Exam - General 1994 Respiratory respiratory effort/rhythm Overall: normal rate 12/22/2016 None Full Exam - General 1994 Cardiovascular extremities Overall: no clubbing 12/22/2016 None Full Exam - General 1994 Cardiovascular extremities Edema present: severity 1+ - 4 +: trace to 1 12/22/2016 None Full Exam - General 1994 Cardiovascular extremities Edema present: bilateral 12/22/2016 None Full Exam - General 1994 Cardiovascular extremities Edema present: to leg 12/22/2016 None Full Exam - General 1994 Cardiovascular auscultation of heart Overall: regular rate 12/22/2016 None Full Exam - General 1994 Cardiovascular auscultation of heart Overall: normal heart sounds 12/22/2016 None Full Exam - General 1994 Abdomen abdominal exam Overall: no tenderness 12/22/2016 None Full Exam - General 1994 Abdomen abdominal exam Overall: normal bowel sounds 12/22/2016 None Full Exam - General 1994 Musculoskeletal head and neck Overall: head atraumatic 12/22/2016 None Full Exam - General 1994 Musculoskeletal head and neck Overall: cervical spine benign 12/22/2016 None Full Exam - General 1994 Neurologic cranial nerves Overall: crainial nerves 2 - 12 grossly intact 12/22/2016 None Full Exam - General 1994 Psychiatric orientation/consciousness Overall: oriented to person, place and time 12/22/2016 None Full Exam - General 1994 Psychiatric mood and affect Overall: normal mood and affect 12/22/2016 None Full Exam - General 1994 Psychiatric appearance Overall: well-groomed, good eye contact 12/22/2016 None Full Exam - ENT Constitutional general appearance Overall: well nourished 12/16/2016 None Full Exam - ENT Constitutional general appearance Overall: well developed 12/16/2016 None Full Exam - ENT Constitutional general appearance Overall: in no acute distress 12/16/2016 None Full Exam - ENT Ears/Nose/Throat otoscopic exam Overall: external auditory canals normal 12/16/2016 None Full Exam - ENT Ears/Nose/Throat otoscopic exam Left tympanic membrane: air -fluid level 12/16/2016 None Full Exam - ENT Ears/Nose/Throat otoscopic exam Right tympanic membrane: air-fluid level 12/16/2016 None Full Exam - ENT Ears/Nose/Throat nasal mucosa, septum, turbinates Drainage: clear 12/16/2016 None Full Exam - ENT Ears/Nose/Throat nasal mucosa, septum, turbinates Drainage: yellow 12/16/2016 None Full Exam - ENT Ears/Nose/Throat lips/ teeth/gingiva Overall: benign lips 12/16/2016 None Full Exam - ENT Ears/Nose/Throat oropharynx Posterior Pharynx: clear post nasal drainage 12/16/2016 None Full Exam - ENT Face and Head palpation Left maxillary sinus: tender 12/16/2016 None Full Exam - ENT Face and Head palpation Right maxillary sinus: tender 12/16/2016 None Full Exam - ENT Respiratory inspection Overall: no retractions 12/16/2016 None Full Exam - ENT Respiratory inspection Overall: normal rate None Full Exam - ENT Respiratory auscultation Overall: breath sounds clear bilaterally 12/16/2016 None Full Exam - ENT Cardiovascular auscultation of heart Overall: regular rate 12/16/2016 None Full Exam - ENT Cardiovascular auscultation of heart Overall: normal heart sounds 12/16/2016 None Full Exam - ENT Lymphatic palpation of lymph nodes Overall: anterior cervical chain benign 12/16/2016 None Full Exam - ENT Lymphatic palpation of lymph nodes Overall: posterior cervical chain benign 12/16/2016 None Full Exam - ENT Neurologic mood and affect Overall: normal mood 12/16/2016 None Full Exam - ENT Neurologic mood and affect Overall: normal affect 12/16/2016 None Full Exam - ENT Neurologic orientation Overall: oriented to person, place and time 12/16/2016 None Full Exam - ENT Ears/Nose/Throat oropharynx Oral mucosa: dry 12/16/2016 None Full Exam - General 1995 Constitutional general appearance Development: appears stated age 0608/15/2016 None Full Exam - General 1994 Constitutional general appearance Overall: well developed 08/15/2016 None Full Exam - General 1994 Constitutional general appearance Overall: in no acute distress 08/15/2016 None Full Exam - General 1994 Constitutional general appearance Overall: well nourished 08/15/2016 None Full Exam - General 1994 Constitutional general appearance Hygiene/Attention to Grooming: good hygiene 08/15/2016 None Full Exam - General 1994 Eyes conjunctiva /eyelids Overall: conjunctiva clear 08/15/2016 None Full Exam - General 1994 Eyes conjunctiva /eyelids Overall: cornea clear 08/15/2016 None Full Exam - General 1994 Eyes conjunctiva /eyelids Overall: eyelids normal 08/15/2016 None Full Exam - General 1994 Eyes pupils and irises Overall: pupils equal, round, reactive to light and accomodation 08/15/2016 None Full Exam - General 1994 Ears/Nose/Throat lips/teeth/gingiva Lips: ulceration 08/15/2016 None Full Exam - General 1994 Ears/Nose/Throat oral cavity/pharynx/larynx Overall: tonsils benign 08/15/2016 None Full Exam - General 1994 Ears/Nose/Throat oral cavity/pharynx/larynx Overall: no masses 08/15/2016 None Full Exam - General 1994 Ears/Nose/Throat oral cavity/pharynx/larynx Oral mucosa: dry 08/15/2016 None Full Exam - General 1994 Ears/Nose/Throat oral cavity/pharynx/larynx Oral mucosa: thrush 08/15/2016 None Full Exam - General 1994 Respiratory auscultation Overall: breath sounds clear bilaterally 08/15/2016 None Full Exam - General 1994 Respiratory respiratory effort/rhythm Overall: no retractions 08/15/2016 None Full Exam - General 1994 Respiratory respiratory effort/rhythm Overall: normal rate 08/15/2016 None Full Exam - General 1994 Cardiovascular extremities Overall: no clubbing 08/15/2016 None Full Exam - General 1994 Cardiovascular extremities Edema present: severity 1+ - 4 +: trace to 1 08/15/2016 None Full Exam - General 1994 Cardiovascular extremities Edema present: bilateral 08/15/2016 None Full Exam - General 1994 Cardiovascular extremities Edema present: to leg 08/15/2016 None Full Exam - General 1994 Cardiovascular auscultation of heart Overall: regular rate 08/15/2016 None Full Exam - General 1994 Cardiovascular auscultation of heart Overall: normal heart sounds 08/15/2016 None Full Exam - General 1994 Abdomen abdominal exam Overall: no tenderness 08/15/2016 None Full Exam - General 1994 Abdomen abdominal exam Overall: normal bowel sounds 08/15/2016 None Full Exam - General 1994 Musculoskeletal head and neck Overall: head atraumatic 08/15/2016 None Full Exam - General 1994 Musculoskeletal head and neck Overall: cervical spine benign 08/15/2016 None Full Exam - General 1994 Neurologic cranial nerves Overall: crainial nerves 2 - 12 grossly intact 08/15/2016 None Full Exam - General 1994 Psychiatric orientation/consciousness Overall: oriented to person, place and time 08/15/2016 None Full Exam - General 1994 Psychiatric mood and affect Overall: normal mood and affect 08/15/2016 None Full Exam - General 1994 Psychiatric appearance Overall: well-groomed, good eye contact 08/15/2016 None Full Exam - General 1994 Ears/Nose/Throat otoscopic exam Tympanic membrane: retracted 08/15/2016 None Full Exam - ENT Constitutional general [...] left lower jaw Procedures Procedure Codes Date FLU VACC PRSV FREE INC ANTIG CPT-4: 95850 11/13/2017 ADMIN INFLUENZA VIRUS VAC CPT-4: G0008 11/13/2017 TRIAMCINOLONE ACET INJ NOS CPT-4: J3301 07/28/2017 PPPS, SUBSEQ VISIT CPT -4: G0439 02/08/2017 URINALYSIS NONAUTO W/O SCOPE CPT-4: 04777 08/15/2016 PPPS, SUBSEQ VISIT CPT -4: G0439 02/01/2016 TRIAMCINOLONE ACET INJ NOS CPT-4: J3301 12/18/2015 ADMIN INFLUENZA VIRUS VAC CPT-4: G0008 11/26/2015 FLU VACC 4 GISELA 3 YRS PLUS IM Formatting Model/CDA Sections, [facility]: [id number] CPT-4: 80759Adctryi 11/26/2015 URINALYSIS NONAUTO W/O SCOPE CPT-4: 90795 11/20/2015 URINALYSIS NONAUTO W/O SCOPE CPT-4: 46136 11/13/2015 IMMUNIZATION ADMIN CPT -4: 99320 12/01/2014 FLU VACC 4 GISELA 3 YRS PLUS IM Formatting Model/CDA Sections, [facility]: [id number] CPT-4: 16706Mcccsva 12/01/2014 Vital Signs Date Vital 06/14/2018 Blood Pressure 1: 142/68 Code : 8480-6 BMI: 23.0 Code : 85649-0 Heart Rate 1 : 65 bpm Height: 5'2" SpO2: 98% Weight: 126 lbs 06/07/2018 Blood Pressure 1: 134/72 Code : 8480-6 BMI: 24.3 Code : 55689-0 Heart Rate 1 : 72 bpm Height: 5'2" SpO2: 98% Weight: 133 lbs 05/22/2018 Blood Pressure 1: 128/50 Code : 8480-6 BMI: 24.6 Code : 56463-6 Heart Rate 1 : 76 bpm Height: 5'1" SpO2: 98% Weight: 130 lbs 04/11/2018 Blood Pressure 1: 142/56 Code : 8480-6 BMI: 25.1 Code : 33480-4 Heart Rate 1 : 68 bpm Height: 5'1" SpO2: 96% Weight: 133 lbs 02/06/2018 Blood Pressure 1: 142/60 Code : 8480-6 BMI: 25.3 Code : 97718-2 Heart Rate 1 : 68 bpm Height: 5'1" SpO2: 99% Temperature: 37.0 (C) / 98.6 (F) Weight: 134 lbs 12/08/2017 Blood Pressure 1: 140/52 Code : 8480-6 BMI: 25.5 Code : 93860-9 Heart Rate 1 : 77 bpm Height: 5'1" SpO2: 96% Temperature: 36.6 (C) / 97.9 (F) Weight: 135 lbs 11/13/2017 Blood Pressure 1: 134/54 Code : 8480-6 BMI: 24.8 Code : 70075-1 Heart Rate 1 : 73 bpm Height: 5'1" SpO2: 98% Weight: 131 lbs 08/29/2017 Blood Pressure 1: 162/64 Code : 8480-6 BMI: 24.9 Code : 09456-7 Heart Rate 1 : 61 bpm Height: 5'1" SpO2: 96% Weight: 132 lbs 07/28/2017 Blood Pressure 1: 148/62 Code : 8480-6 BMI: 25.1 Code : 47456-7 Heart Rate 1 : 67 bpm Height: 5'1" SpO2: 99% Temperature: 36.4 (C) / 97.5 (F) Weight: 133 lbs 06/20/2017 Blood Pressure 1: 140/52 Code : 8480-6 BMI: 25.3 Code : 12630-1 Heart Rate 1 : 64 bpm Height: 5'1" SpO2: 98% Weight: 134 lbs 05/26/2017 Blood Pressure 1: 140/56 Code : 8480-6 BMI: 25.7 Code : 45844-8 Heart Rate 1 : 74 bpm Height: 5'1" SpO2: 95% Weight: 136 lbs 04/24/2017 Blood Pressure 1: 140/68 Code : 8480-6 BMI: 24.6 Code : 80402-4 Heart Rate 1 : 67 bpm Height: 5'1" SpO2: 97% Weight: 130 lbs 02/08/2017 Blood Pressure 1: 134/76 Code : 8480-6 BMI: 24.9 Code : 53928-3 Heart Rate 1 : 67 bpm Height: 5'1" SpO2: 98% Waist Measure (cm): 03314 cm Weight: 132 lbs 12/22/2016 Blood Pressure 1: 156/80 Code : 8480-6 BMI: 24.2 Code : 42612-9 Heart Rate 1 : 65 bpm Height: 5'1" SpO2: 98% Weight: 128 lbs 12/16/2016 Blood Pressure 1: 138/62 Code : 8480-6 BMI: 23.8 Code : 82506-0 Heart Rate 1 : 63 bpm Height: 5'1" SpO2: 98% Weight: 126 lbs 08/15/2016 Blood Pressure 1: 130/60 Code : 8480-6 BMI: 25.3 Code : 53133-5 Heart Rate 1 : 72 bpm Height: 5'1" SpO2: 95% Weight: 134 lbs 08/02/2016 Blood Pressure 1: 160/62 Code : 8480-6 BMI: 25.3 Code : 75320-2 Heart Rate 1 : 67 bpm Height: 5'1" SpO2: 97% Weight: 134 lbs 07/21/2016 Blood Pressure 1: 148/66 Code : 8480-6 BMI: 25.9 Code : 07468-0 Heart Rate 1 : 71 bpm Height: 5'1" SpO2: 97% Temperature: 36.8 (C) / 98.2 (F) Weight: 137 lbs 07/01/2016 Blood Pressure 1: 142/72 Code : 8480-6 BMI: 26.5 Code : 97583-1 Heart Rate 1 : 68 bpm Height: 5'1" SpO2: 94% Weight: 140 lbs 05/16/2016 Blood Pressure 1: 162/76 Code : 8480-6 Blood Pressure 1: 138/68 Code: 8480-6 BMI: 25.7 Code: 09074-3 Heart Rate 1: 58 bpm Height: 5'1" SpO2: 98% Weight: 136 lbs 04/06/2016 Blood Pressure 1: 162/72 Code : 8480-6 Blood Pressure 1: 138/74 Code: 8480-6 BMI: 25.7 Code: 49599-6 Heart Rate 1: 75 bpm Height: 5'1" SpO2: 97% Weight: 136 lbs 03/30/2016 Blood Pressure 1: 188/80 Code : 8480-6 BMI: 26.3 Code : 92065-7 Heart Rate 1 : 75 bpm Height: 5'1" SpO2: 98% Weight: 139 lbs 02/01/2016 Blood Pressure 1: 140/72 Code : 8480-6 BMI: 25.3 Code : 58003-8 Heart Rate 1 : 65 bpm Height: 5'1" SpO2: 97% Waist Measure (cm): 84 cm Weight: 134 lbs 01/25/2016 Blood Pressure 1: 140/74 Code : 8480-6 BMI: 25.1 Code : 20213-4 Heart Rate 1 : 66 bpm Height: 5'1" SpO2: 98% Weight: 133 lbs 12/24/2015 Blood Pressure 1: 142/66 Code : 8480-6 BMI: 24.9 Code : 74412-2 Heart Rate 1 : 54 bpm Height: 5'1" SpO2: 97% Weight: 132 lbs 12/18/2015 Blood Pressure 1: 152/62 Code : 8480-6 BMI: 25.5 Code : 43537-8 Heart Rate 1 : 66 bpm Height: 5'1" SpO2: 96% Weight: 135 lbs 12/11/2015 Blood Pressure 1: 136/54 Code : 8480-6 Heart Rate 1: 72 bpm SpO2: 98% Weight: 137 lbs 11/26/2015 Blood Pressure 1: 142/70 Code : 8480-6 BMI: 25.3 Code : 85527-1 Heart Rate 1 : 64 bpm Height: 5'1" SpO2: 97% Weight: 134 lbs 11/20/2015 Blood Pressure 1: 154/70 Code : 8480-6 Heart Rate 1: 65 bpm SpO2: 98% 10/23/2015 Blood Pressure 1: 138/62 Code : 8480-6 Heart Rate 1: 55 bpm SpO2: 98% 10/21/2015 Blood Pressure 1: 142/68 Code : 8480-6 BMI: 25.7 Code : 96450-2 Heart Rate 1 : 73 bpm Height: 5'1" SpO2: 98% Weight: 136 lbs 07/15/2015 Blood Pressure 1: 130/60 Code : 8480-6 BMI: 26.6 Code : 56301-7 Heart Rate 1 : 70 bpm Height: 5'1" SpO2: 97% Weight: 141 lbs 06/15/2015 Blood Pressure 1: 118/64 Code : 8480-6 BMI: 24.9 Code : 61935-2 Heart Rate 1 : 66 bpm Height: 5'1" SpO2: 99% Weight: 132 lbs 06/05/2015 Blood Pressure 1: 142/60 Code : 8480-6 Blood Pressure 1: 135/58 Code: 8480-6 Heart Rate 1: 64 bpm SpO2: 99% 05/19/2015 Blood Pressure 1: 146/60 Code : 8480-6 BMI: 27.1 Code : 80375-3 Heart Rate 1 : 66 bpm Height: 5'1" SpO2: 97% Weight: 143 lbs 8 oz 04/24/2015 Blood Pressure 1: 148/58 Code : 8480-6 BMI: 25.9 Code : 03808-0 Heart Rate 1 : 61 bpm Height: 5'1" SpO2: 98% Weight: 137 lbs 03/12/2015 Blood Pressure 1: 140/72 Code : 8480-6 BMI: 25.1 Code : 84522-8 Heart Rate 1 : 68 bpm Height: 5'1" SpO2: 98% Weight: 133 lbs 01/12/2015 Blood Pressure 1: 146/60 Code : 8480-6 BMI: 25.7 Code : 06025-5 Heart Rate 1 : 48 bpm Height: 5'1" SpO2: 97% Weight: 136 lbs 12/11/2014 Blood Pressure 1: 144/56 Code : 8480-6 Blood Pressure 1: 125/65 Code: 8480-6 BMI: 25.1 Code: 88240-5 Heart Rate 1: 56 bpm Height: 5'1" SpO2: 96% Weight: 133 lbs 12/01/2014 Blood Pressure 1: 136/60 Code : 8480-6 Heart Rate 1: 56 bpm SpO2: 96% Weight: 131 lbs 5 oz 08/14/2014 Blood Pressure 1: 132/72 Code : 8480-6 BMI: 25.5 Code : 12748-4 Heart Rate 1 : 73 bpm Height: 5'1" SpO2: 94% Weight: 135 lbs Functional Status No Functional Status data History of Present Illness Symptom Name Status Result Effective Date Notes Onset and Resolution sudden in onset 06/14/2018 None Onset of Symptom 1 weeks ago 06/14/2018 None Frequency of Episodes daily 06/14/2018 None Length of Episodes 1 weeks 06/14/2018 None Onset and Resolution sudden in onset 06/07/2018 None Onset of Symptom 1 weeks ago 06/07/2018 None Frequency of Episodes daily 06/07/2018 None Length of Episodes 1 weeks 06/07/2018 None Prior Treatments surgery 05/22/2018 None Procedure to be performed knee replacement 05/22/2018 None Pre-operative instructions nothing to eat or drink after midnight the night before 05/22/2018 None Post-operative instructions physical activity restrictions 05/22/2018 None Risks/Informed Consent post-op bleeding 05/22/2018 None Risks/Informed Consent infection 05/22/2018 None Significant Medical Conditions diabetes 05/22/2018 None Significant Medical Conditions hypertension 05/22/2018 None Pertinent Findings pain 05/22/2018 None Quality chronic 04/11 None Quality primary hypertension 04/11/2018 None Onset and Resolution ongoing 04/11/2018 None Onset of Symptom during adulthood 04/11/2018 None Blood Pressure Values patient checking blood pressure at home - did not bring in readings 2018 None Alleviating Factors medication 04/11/2018 None Pertinent Findings dizziness 04/11/2018 None Pertinent Findings Denies dyspnea 04/11/2018 None Pertinent Findings Denies edema 04/11/2018 None Location frontal sinuses 02/06/2018 None Quality constant 12/2017 None Quality pressure 12/2017 None Onset and Resolution sudden in onset 02/06/2018 None Onset of Symptom 4 days ago 02/06/2018 None Location both ears None Onset and Resolution sudden in onset 02/06/2018 None Quality constant 12/2017 None Quality thick secretions 02/06/2018 None Onset and Resolution sudden in onset 02/06/2018 None Onset of Symptom 4 days ago 02/06/2018 None Pertinent Findings cough 02/06/2018 None Pertinent Findings decreased energy 02/06/2018 None Pertinent Findings nasal congestion 02/06/2018 None Pertinent Findings sinus congestion 02/06/2018 None Pertinent Findings sputum production 02/06/2018 None sinus congestion Location frontal sinuses 12/08/2017 None sinus congestion Quality constant 12/08/2017 None sinus congestion Quality fullness 12/08/2017 None sinus congestion Quality pressure 12/08/2017 None sinus congestion Onset and Resolution sudden in onset 12/08/2017 None sinus congestion Onset of Symptom 1 weeks ago 12/08/2017 None sinus congestion Frequency of Episodes daily 12/08/2017 None earache Location both ears 12/08/2017 None earache Onset and Resolution sudden in onset 12/08/2017 None earache Onset of Symptom 1 weeks ago 12/08/2017 None earache Frequency of Episodes daily 12/08/2017 None headache Location diffusely 12/08/2017 None headache Quality aching 12/08/2017 None headache Quality pressure 12/08/2017 None headache Onset and Resolution sudden in onset 12/08/2017 None headache Onset of Symptom 1 weeks ago 12/08/2017 None hypertension Quality chronic 11/13/2017 None hypertension Quality primary hypertension 11/13/2017 None hypertension Onset and Resolution ongoing 11/13/2017 None hypertension Onset of Symptom during adulthood 11/13/2017 None hypertension Alleviating Factors medication 11/13/2017 None hypertension Blood Pressure Values patient checking blood pressure at home - did not bring in readings 11/13/2017 None hypertension Pertinent Findings dizziness 11/13/2017 None hypertension Pertinent Findings Denies dyspnea 11/13/2017 None hypertension Pertinent Findings Denies edema 11/13/2017 None rash Location-Major on the legs 11/13/2017 None rash Quality acute None rash Quality pruritic 11/13/2017 None rash Color erythematous 11/13/2017 None rash Onset and Resolution sudden in onset 11/13/2017 None rash Triggers no known triggers 11/13/2017 None sinusitis Quality pressure 11/13/2017 None sinusitis Quality clear 11/13/2017 None sinusitis Onset and Resolution ongoing 11/13/2017 None sinusitis Quality acute 11/13/2017 None sinusitis Pertinent Findings cough 11/13/2017 None sinusitis Triggers no known associated factors 11/13/2017 None rash Location-Major in the groin area 08/29/2017 None rash Location-Trunk in the left groin area 08/29/2017 None rash Location-Trunk in the right groin area 08/29/2017 None rash Quality acute 04/2017 None rash Quality pruritic 08/29/2017 None rash Color red 2017 None rash Onset and Resolution sudden in onset 08/29/2017 None rash Onset of Symptom 1 week ago 08/29/2017 None rash Triggers no known triggers 08/29/2017 None rash Alleviating Factors treatment medication 08/29/2017 None rash Pertinent Findings history of similar rash 08/29/2017 None sinus pain Quality acute 07/28/2017 None sinus pain Quality clear 07/28/2017 None sinus pain Quality fullness 07/28/2017 None sinus pain Quality pain 07/28/2017 None sinus pain Quality pressure 07/28/2017 None sinus pain Onset and Resolution ongoing 07/28/2017 None sinus pain Frequency of Episodes daily 07/28/2017 None sinus pain Pertinent Findings cough 07/28/2017 None sinus pain Pertinent Findings Denies fever 07/28/2017 None sinus pain Pertinent Findings facial pain 07/28/2017 None sinus pain Quality pressure 06/20/2017 None sinus pain Location diffusely 06/20/2017 None sinus pain Quality constant 06/20/2017 None sinus pain Onset and Resolution sudden in onset 06/20/2017 None sinus pain Onset of Symptom 1 weeks ago 06/20/2017 None sinus pain Frequency of Episodes daily 06/20/2017 None earache Location both ears 06/20/2017 None earache Onset and Resolution sudden in onset 06/20/2017 None earache Onset of Symptom 1 weeks ago 06/20/2017 None knee pain Location on the left 06/20/2017 None knee pain Location on the right 06/20/2017 None sinus congestion Location frontal sinuses 05/26/2017 None sinus congestion Quality constant 05/26/2017 None sinus congestion Quality fullness 05/26/2017 None sinus congestion Onset and Resolution sudden in onset 05/26/2017 None sinus congestion Onset of Symptom 1 weeks ago 05/26/2017 None sinus congestion Frequency of Episodes daily 05/26/2017 None sore throat Location diffusely 05/26/2017 None sore throat Quality aching 05/26/2017 None sore throat Quality constant 05/26/2017 None sore throat Quality scratchy 05/26/2017 None sore throat Onset and Resolution sudden in onset 05/26/2017 None sore throat Onset of Symptom 1 weeks ago 05/26/2017 None sore throat Frequency of Episodes daily 05/26/2017 None hypertension Quality constant 04/24/2017 None hypertension Onset of Symptom during adulthood 04/24/2017 None Annual Medicare Wellness Exam Alcohol Use does not drink any alcohol 02/08/2017 None Annual Medicare Wellness Exam Aspirin Use no 02/08/2017 None Annual Medicare Wellness Exam Blood Glucose (self reported) borderline high (100-125) 02/08/2017 None Annual Medicare Wellness Exam Blood Pressure (self reported ) borderline (120/80 - 139/89) 02/08/2017 None Annual Medicare Wellness Exam Cholesterol (self reported) desireable (below 200) 02/08/2017 None Annual Medicare Wellness Exam Depression (last 6 months) almost never 02/08/2017 None Annual Medicare Wellness Exam Depression or Hopelessness almost never 02/08/2017 None Annual Medicare Wellness Exam Describe Your Health good 02/08/2017 None Annual Medicare Wellness Exam Exercise Habits does not exercise 02/08/2017 None Annual Medicare Wellness Exam Handling Stress usually kirstie effectively 02/08/2017 None Annual Medicare Wellness Exam Hemaglobin A-1C (self reported ) don't know 02/08/2017 None Annual Medicare Wellness Exam Hours of Sleep 9 02/08/2017 None Annual Medicare Wellness Exam Interaction with Friends no 02/08/2017 None Annual Medicare Wellness Exam Interests & Pleasure some of the time 02/08/2017 None Annual Medicare Wellness Exam Life Satisfaction very satisfied 02/08/2017 None Annual Medicare Wellness Exam Motor Vehicle Safety always fastens seat belt: y 02/08/2017 None Annual Medicare Wellness Exam Motor Vehicle Safety drives after drinking: n 02/08/2017 None Annual Medicare Wellness Exam Motor Vehicle Safety rides with someone who has been drinking: n 2016 None Annual Medicare Wellness Exam Nutrition servings of fried food / high fat foods per day: 1 2016 None Annual Medicare Wellness Exam Nutrition servings of high fiber / whole grain per day: 1 02/08/2017 None Annual Medicare Wellness Exam Nutrition servings of vegetables / fruit per day: 1 02/08/2017 None Annual Medicare Wellness Exam Smoking and Tobacco Use non smoker 02/08/2017 None Annual Medicare Wellness Exam Social & Emotional Support always 02/08/2017 None Annual Medicare Wellness Exam Stress almost never 02/08/2017 None Annual Medicare Wellness Exam Sun Exposure protects skin when outdoors: y 02/08/2017 None hypertension Onset and Resolution ongoing 12/22/2016 None hypertension Onset of Symptom during adulthood 12/22/2016 None hypertension Blood Pressure Values not checking blood pressure at home 12/22/2016 None hypertension Alleviating Factors medication 12/22/2016 None hypertension Pertinent Findings Denies dizziness 12/22/2016 None hypertension Pertinent Findings Denies dyspnea 12/22/2016 None hypertension Pertinent Findings Denies edema 12/22/2016 None abnormal test results Abnormal Indicator abnormal 12/22/2016 None abnormal test results Type of Test(s) Hgb A1c 12/22/2016 None sinus congestion Location frontal sinuses 12/16/2016 None sinus congestion Quality constant 12/16/2016 None sinus congestion Onset and Resolution sudden in onset 12/16/2016 None sinus congestion Onset of Symptom 3 days ago 12/16/2016 None sinus congestion Frequency of Episodes daily 12/16/2016 None chest congestion Quality constant 12/16/2016 None chest congestion Onset and Resolution sudden in onset 12/16/2016 None chest congestion Onset of Symptom 3 days ago 12/16/2016 None chest congestion Pertinent Findings cough 12/16/2016 None chest congestion Pertinent Findings sinus congestion 12/16/2016 None hypertension Onset and Resolution ongoing 08/15/2016 None hypertension Onset of Symptom during adulthood 08/15/2016 None hypertension Blood Pressure Values not checking blood pressure at home 08/15/2016 None hypertension Alleviating Factors medication 08/15/2016 None hypertension Pertinent Findings Denies dizziness 08/15/2016 None hypertension Pertinent Findings Denies dyspnea 08/15/2016 None hypertension Pertinent Findings Denies edema 08/15/2016 None sinus congestion Location frontal sinuses 08/02/2016 None [...] data Encounters Encounter Performer Location Codes Date 64826 EST. PATIENT, LEVEL III Diagnosis: Essential (primary) hypertension[ICD10: I10] Diagnosis: Localized edema[ICD10: R60.0] Evelyn Cohen MD, [facility] CPT-4 : 38088 06/14/2018 96982 EST. PATIENT, LEVEL III Diagnosis: Localized edema[ICD10: R60.0] Evelyn Cohen MD, [facility] CPT-4 : 53328 06/07/2018 ([id number]) 28939 EST. PATIENT, LEVEL III Diagnosis: Essential (primary) hypertension[ICD10: I10] Diagnosis: Unilateral primary osteoarthritis, left knee[ICD10: M17.12] Berenice Cohen MD , [facility] CPT-4: 09396 05/22/2018 ([id number]) 86607 EST. PATIENT, LEVEL IV Diagnosis: Essential (primary) hypertension[ICD10: I10] Diagnosis: Other abnormal glucose[ICD10: R73.09] Diagnosis: Mixed hyperlipidemia[ICD10: E78.2] Diagnosis: Vitamin D deficiency, unspecified[ICD10: E55.9] Berenice Cohen MD, [facility] CPT-4: 41947 04/11/2018 66712 EST. PATIENT, LEVEL IV Diagnosis: Other acute sinusitis[ICD10: J01.80] Diagnosis: Other allergic rhinitis[ICD10: J30.89] Evelyn Cohen MD, [facility] CPT-4: 81516 02/06/2018 61671 EST. PATIENT, LEVEL III Diagnosis: Other allergic rhinitis[ICD10: J30.89] Diagnosis: Other acute sinusitis[ICD10: J01.80] Evelyn Cohen MD, [facility] CPT-4: 09567 12/08/2017 ([id number]) 09089 EST. PATIENT, LEVEL IV Diagnosis: Essential (primary) hypertension[ICD10: I10] Diagnosis: Chronic maxillary sinusitis[ICD10: J32.0] Diagnosis: Mixed hyperlipidemia[ICD10: E78.2] Diagnosis: Other abnormal glucose[ICD10: R73.09] Berenice Cohen MD, [facility] CPT-4: 63687 11/13/2017 ([id number]) 71421 EST. PATIENT, LEVEL III Diagnosis: Tinea corporis[ICD10: B35.4] Diagnosis: Essential (primary) hypertension[ICD10: I10] Doris Cohen MD, [facility] CPT-4: 38623 08/29/2017 ([id number]) 18043 EST. PATIENT, LEVEL III Diagnosis: Acute recurrent maxillary sinusitis[ICD10: J01.01] Diagnosis: Other allergic rhinitis[ICD10: J30.89] Doris Cohen MD, [facility] CPT-4: 65997 07/28/2017 80866 EST. PATIENT, LEVEL IV Diagnosis: Other acute sinusitis[ICD10: J01.80] Diagnosis: Other allergic rhinitis[ICD10: J30.89] Diagnosis: Otalgia, bilateral[ICD10: H92.03] Diagnosis: Pain in right knee[ICD10: M25.561] Diagnosis: Pain in left knee[ICD10: M25.562] Evelyn Cohen MD, [facility] CPT -4: 77760 06/20/2017 13290 EST. PATIENT, LEVEL IV Diagnosis: Other acute sinusitis[ICD10: J01.80] Diagnosis: Other allergic rhinitis[ICD10: J30.89] Diagnosis: Gastro-esophageal reflux disease without esophagitis[ICD10: K21.9] Evelyn Cohen MD, [facility] CPT-4: 67546 05/26/2017 94284 EST. PATIENT, LEVEL III Diagnosis: Essential (primary) hypertension[ICD10: I10] Evelyn Cohen MD, [facility] CPT-4: 80409 04/24/2017 ([id number]) 60507 EST. PATIENT, LEVEL IV Diagnosis: Essential (primary) hypertension[ICD10: I10] Diagnosis: Other abnormal glucose[ICD10: R73.09] Diagnosis: Mixed hyperlipidemia[ICD10: E78.2] Berenice Cohen MD, [facility] CPT-4: 76437 12/22/2016 46239 EST. PATIENT, LEVEL IV Diagnosis: Other acute sinusitis[ICD10: J01.80] Diagnosis: Other allergic rhinitis[ICD10: J30.89] Evelyn Cohen MD, [facility] CPT-4: 98067 12/16/2016 ([id number]) 96039 EST. PATIENT, LEVEL IV Diagnosis: Essential (primary) hypertension[ICD10: I10] Diagnosis: Mixed hyperlipidemia[ICD10: E78.2] Diagnosis: Dysuria[ICD10: R30.0] Berenice Cohen MD, [facility] CPT-4: 71061 08/15/2016 91813 EST. PATIENT, LEVEL III Diagnosis: Other acute sinusitis[ICD10: J01.80] Diagnosis: Other allergic rhinitis[ICD10: J30.89] Diagnosis: Otalgia, bilateral[ICD10: H92.03] Evelyn Cohen MD, [facility] CPT -4: 15229 08/02/2016 ([id number]) 27486 EST. PATIENT, LEVEL III Diagnosis: Acute recurrent maxillary sinusitis[ICD10: J01.01] Diagnosis: Otalgia, right ear[ICD10: H92.01] Doris Cohen MD, [facility] CPT-4: 85814 07/21/2016 49127 EST. PATIENT, LEVEL III Diagnosis: Dysuria[ICD10: R30.0] Diagnosis: Other allergic rhinitis[ICD10: J30.89] Evelyn Cohen MD, [facility] CPT-4: 02835 07/01/2016 ([id number]) 76177 EST. PATIENT, LEVEL IV Diagnosis: Essential (primary) hypertension[ICD10: I10] Diagnosis: Mixed hyperlipidemia[ICD10: E78.2] Berenice Cohen MD [facility] CPT-4: 84332 05/16/2016 11243 EST. PATIENT, LEVEL III Diagnosis: Mixed hyperlipidemia[ICD10: E78.2] Diagnosis: Essential (primary) hypertension[ICD10: I10] Diagnosis: Laceration without foreign body of left hand, subsequent encounter[ ICD10: S61.412D] Evelyn Cohen MD [facility] CPT-4: 44185 04/06/2016 ([id number]) 61936 EST. PATIENT, LEVEL III Diagnosis: Essential (primary) hypertension[ICD10: I10] Berenice Cohen MD [facility] CPT-4: 12204 03/30/2016 ([id number]) 90742 EST. 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 PATIENT, LEVEL III Diagnosis: Essential (primary) hypertension[ICD10: I10] Berenice Cohen MD, [facility] CPT-4: 09188 12/24/2015 59237 EST. PATIENT, LEVEL III Diagnosis: Other acute sinusitis[ICD10: J01.80] Diagnosis: Other allergic rhinitis[ICD10: J30.89] Evelyn Cohen MD, [facility] CPT-4: 26460 12/18/2015 ([id number]) Miscellaneous no charge Diagnosis: Essential (primary) hypertension[ICD10: I10] Evelyn Cohen MD, [facility] CPT-4: 50090 12/11/2015 ([id number]) 98476 EST. PATIENT, LEVEL IV Diagnosis: Essential (primary) hypertension[ICD10: I10] Diagnosis: Other abnormal glucose[ICD10: R73.09] Diagnosis: Encounter for immunization[ICD10: Z23] Berenice Cohen MD, [facility] CPT-4: 36660 11/26/2015 ([id number]) Miscellaneous no charge Diagnosis: Bitten by dog, initial encounter[ICD10: W54.0XXA] Evelyn Cohen MD [facility] CPT-4: 47860 10/29/2015 ([id number]) Miscellaneous no charge Diagnosis: Essential (primary) hypertension[ICD10: I10] Diagnosis: Bitten by dog, initial encounter[ICD10: W54.0XXA] Evelyn Cohen MD, [facility] CPT-4: 72675 10/23/2015 36805 EST. PATIENT, LEVEL III Diagnosis: Cellulitis of face[ICD10: L03.211] Diagnosis: Bitten by dog, initial encounter[ICD10: W54.0XXA] Evelyn Cohen MD, [facility] CPT-4: 75608 10/21/2015 ([id number]) Miscellaneous no charge Diagnosis: Essential (primary) hypertension[ICD10: I10] Evelyn Cohen MD, [facility] CPT-4: 42705 07/15/2015 ([id number]) 63486 EST. PATIENT, LEVEL IV Diagnosis: Essential (primary) hypertension[ICD10: I10] Diagnosis: Mixed hyperlipidemia[ICD10: E78.2] Diagnosis: Dry mouth, unspecified[ICD10: R68.2] Berenice Cohen MD, [facility] CPT-4: 24752 06/15/2015 ([id number]) Miscellaneous no charge Diagnosis: Essential (primary) hypertension[ICD10: I10] Doris Cohen MD, [facility] CPT-4: 36522 06/05/2015 ([id number]) 95905 EST. PATIENT, LEVEL IV Diagnosis: Mammographic microcalcification found on diagnostic imaging of breast [ICD10: R92.0] Diagnosis: Edema, unspecified[ICD10: R60.9] Diagnosis: Essential (primary) hypertension[ICD10: I10] Berenice Cohen MD, [facility] CPT-4: 58279 05/19/2015 96394 EST. PATIENT, LEVEL IV Diagnosis: Other acute sinusitis[ICD10: J01.80] Diagnosis: Acute nasopharyngitis [common cold][ICD10: J00] Diagnosis: Other allergic rhinitis[ICD10: J30.89] Diagnosis: Localized edema[ICD10: R60.0] Diagnosis: Mixed hyperlipidemia[ICD10: E78.2] Evelyn Cohen MD, [facility] CPT-4: 23083 04/24/2015 ([id number]) 82611 EST. PATIENT, LEVEL IV Diagnosis: Essential (primary) hypertension[ICD10: I10] Diagnosis: Abscess of liver[ICD10: K75.0] Diagnosis: Anemia, unspecified[ICD10: D64.9] Berenice Cohen MD, [facility] CPT-4: 62912 03/12/2015 22773 EST. PATIENT, LEVEL IV Diagnosis: Essential (primary) hypertension[ICD10: I10] Diagnosis: Candidal stomatitis[ICD10: B37.0] Diagnosis: Pain in unspecified knee[ICD10: M25.569] Diagnosis: Edema, unspecified[ICD10: R60.9] Evelyn Cohen MD, [facility] CPT- 4: 04898 01/12/2015 ([id number]) 15536 EST. PATIENT, LEVEL III Diagnosis: Pain in right foot[ICD10: M79.671] Berenice Cohen MD [facility] CPT-4: 96665 12/11/2014 ([id number]) 15070 EST. PATIENT, LEVEL IV Diagnosis: Abscess of liver[ICD10: K75.0] Diagnosis: Hypo-osmolality and hyponatremia[ICD10: E87.1] Diagnosis: Essential (primary) hypertension[ICD10: I10] Diagnosis: VACCIN FOR INFLUENZA[ICD10: Z23] Berenice Cohen MD, [facility] CPT-4: 18919 12/01/2014 ([id number]) OFFICE VISIT, NEW - LEVEL 4 Diagnosis: ESSENTIAL HYPERTENSION[ICD9: 401.9] Diagnosis: Chronic maxillary sinusitis[ICD9: 473.0] Berenice Cohen MD, [facility] CPT-4: 55195 08/14/2014 Plan of Care Planned Activity Notes Codes Status Date Visit Plan: Hypertension - he patient has been counseled to cut back [...] pt is to call for acute concerns. Edema - pt has been advised to elevate legs to prevent dependent edema, compression has been recommended to help to naturally decrease peripheral edema. Diuretic use has been discussed and pt has been instructed in appropriate use of such medication as necessary to further attempt to reduce peripheral edema. 06/14/2018 Appointment: Evelyn West WPtel: [phone] [facility] (30 min) Complex 06/14/2018 Patient Education: Patient Medication Summary Completed 06/14/2018 Visit Plan: Edema - pt has been advised to elevate legs to prevent dependent edema, compression has been recommended to help to naturally decrease peripheral edema. Diuretic use has been discussed and pt has been instructed in appropriate use of such medication as necessary to further attempt to reduce peripheral edema. 06/07/2018 Appointment: Evelyn West WPtel: [phone] [facility] [place] (30 min) Complex 06/07/2018 Patient Education: Patient Medication Summary Completed 06/07/2018 Appointment: Berenice Cohen WPtel: [phone] [facility] [place] (15 min) Moderate 05/28/2018 Referral: Eduardo Suggs Referral info faxed. Patient informed to arrive at 2:00 PM for paperwork. Completed 05/28/2018 Visit Plan: Hypertension - well controlled - continue with current medications, continue with no added salt diet. Pt has been encouraged to exercise daily. The pt has been advised to call the office if there are any acute concerns about change in blood pressure readings at home. Left knee pain - patient is going to have knee replacement with Dr Rothman -will refer to Dr Suggs for cardiac clearance -Dr Cohen in to see patient and recommend that Marta have her surgery at [facility] so she can see her as well as any specialists if needed. RX for walker provided to help with stability and prevent falling. 05/22/2018 [facility]ment[phone] [place] (30 min) Complex 05/22/2018 Patient Education: Patient Medication Summary Completed 05/22/2018 Care Plan: Referral Order SNOMED-CT : [id number] Pending 05/22/2018 Visit Plan: Hypertension - well controlled - continue with current medications, continue with no added salt diet. Pt has been encouraged to exercise daily. The pt has been advised to call the office if there are any acute concerns about change in blood pressure readings at home. Abnormal glucose - check lab - hgba1c today Hyperlipidemia - pt has been counseled about [...] to assure normal liver response to medications. 04/11/2018 Appointment: Berenice Cohen WPtel: [facility] (15 min) Moderate 04/11/2018 Patient Education: Patient Medication Summary Completed 04/11/2018 Patient Education: Hypertension Completed 04/11/2018 Patient Education: Cholesterol Management Completed 04/11/2018 Patient Education: Patient Medication Summary Completed 03/30/2018 Care Plan: Comp Metabolic Pending 03/30/2018 Care Plan: Cbc With Differential Pending 03/30/2018 Care Plan: Tsh Pending 03/30/2018 Care Plan: Lipid Pending 03/30/2018 Appointment: Berenice Cohen WPtel: [facility] (15 min) Moderate 03/28/2018 Appointment: Berenice Cohen WPtel: [address] [place], [place] [id number] (15 min) Moderate 03/19/2018 Visit Plan: Sinusitis - Pt has acute infection - pain in face, maxillary region, Pt informed to use decongestant, RX given to patient, sinus rinses also recommended. Call if symptoms do not show improvement. Allergies - chronic - recommended pt to use allergy medication as prescribed. Pt has been counseled as to the appropriate use of the medication. Pt to call if allergy symptoms are not controlled with the medication. If using nasal spray , instructions as follows: Nasal spray- use twice daily, one spray per nostril twice daily, after 30 minutes, rinse out nose with saline spray.. Use opposite hand per nostril to spray in the nasal steroid allergy spray. 02/06/2018 Appointment: Evelyn West WPtel: [phone] (15 min) Moderate 02/06/2018 Patient Education: Patient Medication Summary Completed 02/06/2018 Patient Education: Patient Medication Summary Completed 12/29/2017 Care Plan: %Hba1C [facility] : [id number] Pending 12/11/2017 Visit Plan: Sinusitis - Pt has acute infection - pain in face, maxillary region, Pt informed to use decongestant, RX given to patient, sinus rinses also recommended. Call if symptoms do not show improvement. Allergies - chronic - recommended pt to use allergy medication as prescribed. Pt has been counseled as to the appropriate use of the medication. Pt to call if allergy symptoms are not controlled with the medication. If using nasal spray , instructions as follows: Nasal spray- use twice daily, one spray per nostril twice daily, after 30 minutes, rinse out nose with saline spray.. Use opposite hand per nostril to spray in the nasal steroid allergy spray. 12/08/2017 Appointment: Evelyn West WPtel: [phone] [facility] (15 min) Moderate 12/08/2017 Patient Education: Patient Medication Summary Completed 12/08/2017 Visit Plan: Hypertension - well controlled - continue with current medications, continue with no added salt diet. Pt has been encouraged to exercise daily. The pt has been advised to call the office if there are any acute concerns about change in blood pressure readings at home. Chronic Sinus congestion - Prednisone rx given to patient - monitor symptoms call if not improving. Elevated glucose - discussed with patient - need to cut back on bread , potatoes, pasta, starchy veggies, and increase activity. Hyperlipidemia - pt has been counseled about appropriate diet, exercise, and need for low fat food choices. We will check labs in 3-6 months for follow up on the patient's chronic medical problem and to assure normal liver response to medications. flu shot today 11/13/2017 Visit Plan: Hypertension - well controlled - continue with current medications, continue with no added salt diet. Pt has been encouraged to exercise daily. The pt has been advised to call the office if there are any acute concerns about change in blood pressure readings at home. Chronic Sinus congestion - Prednisone rx given to patient - monitor symptoms call if not improving. Elevated glucose - discussed with patient - need to cut back on bread , potatoes, pasta, starchy veggies, and increase activity. Hyperlipidemia - pt has been counseled about appropriate diet, exercise, and need for low fat food choices. We will check labs in 3-6 months for follow up on the patient's chronic medical problem and to assure normal liver response to medications. flu shot today 11/13/2017 Appointment: Berenice Cohen WPtel: [facility] (15 min) Moderate 11/13/2017 Patient Education: Patient Medication Summary Completed 11/13/2017 Patient Education: Cholesterol Management Completed 11/13/2017 Visit Plan: Tinea-rx sent to patient's pharmacy and instructed on use-keep groin clean/dry -call if symptoms do not resolve or if any worse HTN-elevated today-monitor and home and call if continues to be elevated 08/29/2017 Appointment: Doris Sheffield WPtel: [phone] [phone] (15 min) Moderate 08/29/2017 Patient Education: Patient Medication Summary Completed 08/29/2017 Visit Plan: Sinusitis - Pt has acute infection - pain in face, maxillary region, Pt informed to use decongestant, RX given to patient, sinus rinses also recommended. Call if symptoms do not show improvement. Cerumen -use sweet oil x 1 week and return to have ears flushes Oral pain-rx for nystatin provided and instructed to follow up in the office if symptoms do not resolve or if any worse 07/28/2017 Appointment: [phone] (30 min) Complex 07/28/2017 Patient Education: Patient Medication Summary Completed 07/28/2017 Visit Plan: Sinusitis - Pt has acute infection - pain in face, maxillary region, Pt informed to use decongestant, RX given to patient, sinus rinses also recommended. Call if symptoms do not show improvement. Allergies - chronic - recommended pt to use allergy medication as prescribed. Pt has been counseled as to the appropriate use of the medication. Pt to call if allergy symptoms are not controlled with the medication. If using nasal spray , instructions as follows: Nasal spray- use twice daily, one spray per nostril twice daily, after 30 minutes, rinse out nose with saline spray.. Use opposite hand per nostril to spray in the nasal steroid allergy spray. Bilateral knee pain - defer to Dr. Davila - will send RX - the patient was instructed in appropriate posture. The pt is to use prn antiinflammatories to manage acute pain. The patient is to call the office if the pain is worsening or does not improve. 06/20/2017 Appointment: [facility]el[phone] (15 min) Moderate 06/20/2017 Patient Education: Patient Medication Summary Completed 06/20/2017 Visit Plan: Sinusitis - Pt has acute infection - pain in face, maxillary region, Pt informed to use decongestant, RX given to patient, sinus rinses also recommended. Call if symptoms do not show improvement. Allergies - chronic - recommended pt to use allergy medication as prescribed. Pt has been counseled as to the appropriate use of the medication. Pt to call if allergy symptoms are not controlled with the medication. If using nasal spray , instructions as follows: Nasal spray- use twice daily, one spray per nostril twice daily, after 30 minutes, rinse out nose with saline spray.. Use opposite hand per nostril to spray in the nasal steroid allergy spray. Esophageal Reflux - the patient has been counseled against excessive intake of caffeine, spicy foods, peppermint, and cinnamon - all of which can exacerbate esophageal reflux. The patient is to take medications as prescribed and call the office if the symptoms are not improving. 05/26/2017 Appointment: [facility] West [facility]el[phone] (15 min) Moderate 05/26/2017 Patient Education: Patient Medication Summary Completed 05/26/2017 Visit Plan: Hypertension - uncontrolled - the [...] pt is to call for acute concerns. 04/24/2017 Appointment: Evelyn West WPtel: [phone] [facility] (30 min) Complex 04/24/2017 Patient Education: Patient Medication Summary Completed 04/24/2017 Visit Plan: Medicare Exam - today we [...] her DOPA paperwork for health care surrogate. 02/08/2017 Appointment: Evelyn West WPtel: [phone] [facility] [facility] - Annual Wellness Visit 02/08/2017 Patient Education: Patient Medication Summary Completed 02/08/2017 Visit Plan: Hypertension - well controlled - [...] to assure normal liver response to medications. Elevated glucose - cut back on carbohydrates. prevnar vaccine today 12/22/2016 Appointment: Berenice Cohen WPtel: [phone] [facility] (15 min) Moderate 12/22/2016 Patient Education: Patient Medication Summary Completed 12/22/2016 Visit Plan: Sinusitis - Pt has acute infection - pain in face, maxillary region, Pt informed to use decongestant, RX given to patient, sinus rinses also recommended. Call if symptoms do not show improvement. Allergies - chronic - recommended pt to use allergy medication as prescribed. Pt has been counseled as to the appropriate use of the medication. Pt to call if allergy symptoms are not controlled with the medication. If using nasal spray , instructions as follows: Nasal spray- use twice daily, one spray per nostril twice daily, after 30 minutes, rinse out nose with saline spray.. Use opposite hand per nostril to spray in the nasal steroid allergy spray. 12/16/2016 Appointment: Evelyn West WPtel: [phone] [phone] (30 min) Complex 12/16/2016 Patient Education: Patient Medication Summary Completed 12/16/2016 Appointment: Berenice Cohen WPtel: [phone] [facility] (15 min) Moderate 11/15/2016 Visit Plan: Hypertension - well controlled - [...] to assure normal liver response to medications. Elevated glucose - cut back on carbohydrates. 08/15/2016 Visit Plan: Hypertension - well controlled - [...] to assure normal liver response to medications. Elevated glucose - cut back on carbohydrates. 08/15/2016 Appointment: Berenice Cohen WPtel: [phone] (15 min) Moderate 08/15/2016 Patient Education: Patient Medication Summary Completed 08/15/2016 Appointment: Doris Sheffield WPtel: [phone] [phone] (15 min) Moderate 08/05/2016 Visit Plan: Allergies - chronic - recommended [...] show improvement. 08/02/2016 Appointment: Evelyn West WPtel: [phone] [facility] (30 min) Complex 08/02/2016 Patient Education: Patient Medication Summary Completed 08/02/2016 Appointment: Nurse Visit 07/27/2016 Visit Plan: Sinusitis - Pt has acute infection - pain in face, maxillary region, Pt informed to use decongestant, RX given to patient, sinus rinses also recommended. Call if symptoms do not show improvement. Earache -finish ear drops-start abx for sinus infection-return in 1 week for follow up and to have ear flushed 07/21/2016 Appointment: Doris Sheffield WPtel: [phone] [phone] (15 min) Moderate 07/21/2016 Patient Education: Patient [...] medications. Restart the lipitor at 10mg nightly. 05/16/2016 Appointment: Berenice Cohen WPtel: [facility] ([facility]) [facility] 05/16/2016 Patient Education: Patient Medication Summary Completed [...] notify clinic with any questions or concerns. 04/06/2016 Appointment: Evelyn West WPtel: [facility] (10 min) Simple 04/06/2016 Patient Education: Patient [...] twice daily. 03/30/2016 Appointment: Berenice Cohen WPtel: [facility] (15 min) Moderate 03/30/2016 Patient Education: Patient Medication Summary Completed 03/30/2016 Appointment: [facility] ([facility]) Moderate 03/24/2016 Visit Plan: Medicare [...] care surrogate. 02/01/2016 Appointment: Evelyn West WPtel: [phone] - Annual Wellness Visit 02/01/2016 Patient Education: Patient Medication Summary Completed 02/01/2016 Visit Plan: Apthous ulcer - rx for acyclovir 800mg tid x7 days Sample of Voltaren gel to use on knees tid prn 01/25/2016 Appointment: Berenice Cohen WPtel: [phone] (15 min) Moderate 01/25/2016 Patient Education: Patient Medication Summary Completed 01/25/2016 Visit Plan: Hypertension - well controlled - continue with current medications, continue with no added salt diet. Pt has been encouraged to exercise daily. The pt has been advised to call the office if there are any acute concerns about change in blood pressure readings at home. 12/24/2015 Appointment: Berenice Cohen WPtel: [phone] (15 min) Moderate 12/24/2015 Patient Education: Patient [...] show improvement. 12/18/2015 Appointment: Doris Sheffield WPtel: [phone] [phone] (15 min) Moderate 12/18/2015 Patient Education: Patient [...] meal - 11/26/2015 Appointment: Berenice Cohen WPtel: [phone] [facility] (15 min) Moderate 11/26/2015 Patient Education: [...] in pain. 10/21/2015 Appointment: [phone] (15 min) Moderate 10/21/2015 Patient Education: Patient [...] blood cells are fine. BIOTENE mouth spray 06/15/2015 Appointment: [phone] (15 min) Moderate 06/15/2015 Patient Education: Patient Medication Summary Completed 06/15/2015 Patient Education: Patient Medication Summary Completed 06/12/2015 Appointment: [phone] (15 min) Moderate 06/11/2015 Appointment: Nurse [...] today for the mammogram in 6 months. 05/19/2015 Patient Education: Patient Medication Summary Completed 05/19/2015 [...] - pt has been counseled about appropriate diet , exercise, and need for low fat food [...] the day 03/12/2015 Appointment: Berenice Cohen WPtel: [address] [place], [place] [id number] (15 min) Moderate 03/12/2015 Patient Education: Patient [...] appointment with then soon. Pt to try [place] rub on the knees to help reduce [...] is sore 12/11/2014 Appointment: Berenice Cohen WPtel: [facility] (15 min) Moderate 12/11/2014 Patient Education: Patient [...] not improving. 12/01/2014 Appointment: Berenice Cohen WPtel: [facility] (15 min) Moderate 12/01/2014 Patient Education: Patient Medication Summary Completed 12/01/2014 Patient Education: Hypertension Completed 12/01/2014 Appointment: Berenice Cohen WPtel: [facility] (15 min) Moderate 09/15/2014 Visit Plan: [...] not improve. 08/14/2014 Appointment: Berenice Cohen WPtel[facility] [place] New Patient 08/14/2014 Patient Education: Patient Medication Summary Completed 08/14/2014 Patient Education: Hypertension Completed 08/14/2014 Referral: Eduardo Suggs Referral Appointment Requested Instructions Comment Lasix - 40mg daily x 3 days potassium 20meq daily x 3 day compression stockings during day low salt diet keep legs up when weigh daily come back in 1 week for a follow up [employer] [place] to help track salt . Edema - pt has been advised to elevate legs to prevent dependent edema, compression has been recommended to help to naturally decrease peripheral edema. Diuretic use has been discussed and pt has been instructed in appropriate use of such medication as necessary to further attempt to reduce peripheral edema. change the amlodipine to 5mg at night and start on the new blood pressure pill of LOSARTAN 50ng in the morning. we will repeat your blood glucose check in October - this gives you 3 months to change your diet and cut out carbohydrates. . Hypertension - well controlled - continue [...] to assure normal liver response to medications. Elevated glucose - cut back on carbohydrates. prevnar vaccine today . Hypertension - well controlled - continue with current medications, continue with no added salt diet. Pt has been encouraged to exercise daily. The pt has been advised to call the office if there are any acute concerns about change in blood pressure readings at home. Abnormal glucose - check lab - hgba1c today Hyperlipidemia - pt has been counseled about [...] liver response to medications. . Hypertension - he patient has been counseled to cut back [...] pt is to call for acute concerns. Edema - pt has been advised to elevate legs to prevent dependent edema, compression has been recommended to help to naturally decrease peripheral edema. Diuretic use has been discussed and pt has been instructed in appropriate use of such medication as necessary to further attempt to reduce peripheral edema. increase the amlodipine to 10mg daily - [...] the skin twice daily. . Hypertension - well controlled - continue with current medications, continue with no added salt diet. Pt has been encouraged to exercise daily. The pt has been advised to call the office if there are any acute concerns about change in blood pressure readings at home. Chronic Sinus congestion - Prednisone rx given to patient - monitor symptoms call if not improving. Elevated glucose - discussed with patient - need to cut back on bread, potatoes , pasta, starchy veggies, and increase activity. Hyperlipidemia - pt has been counseled about appropriate diet, exercise, and need for low fat food choices. We will check labs in 3-6 months for follow up on the patient's chronic medical problem and to assure normal liver response to medications. flu shot today . Hypertension - well controlled - continue with current medications, continue with no added salt diet. Pt has been encouraged to exercise daily. The pt has been advised to call the office if there are any acute concerns about change in blood pressure readings at home. Chronic Sinus congestion - Prednisone rx given to patient - monitor symptoms call if not improving. Elevated glucose - discussed with patient - need to cut back on bread, potatoes , pasta, starchy veggies, and increase activity. Hyperlipidemia - pt has been counseled about appropriate diet, exercise, and need for low fat food choices. We will check labs in 3-6 months for follow up on the patient's chronic medical problem and to assure normal liver response to medications. flu shot today . Sinusitis - Pt has acute infection - pain in face, maxillary region, Pt informed to use decongestant, RX given to patient, sinus rinses also recommended. Call if symptoms do not show improvement. Allergies - chronic - recommended pt to [...] spray in the nasal steroid allergy spray. . Allergies - chronic - recommended pt [...] assure normal liver response to medications. . Sinusitis - Pt has acute infection - pain in face, maxillary region, Pt informed to use decongestant, RX given to patient, sinus rinses also recommended. Call if symptoms do not show improvement. Allergies - chronic - recommended pt to [...] spray in the nasal steroid allergy spray. Bilateral knee pain - defer to Dr. Davila - will send RX - the patient was instructed in appropriate posture. The pt is to use prn antiinflammatories to manage acute pain. The patient is to call the office if the pain is worsening or does not improve. . Hypertension - uncontrolled - the patient's [...] pt is to call for acute concerns. . 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 . No fracture of foot - recommended pt to use aspercreme to the foot where it is sore we will repeat your blood glucose check in October - this gives you 3 months to change your diet and cut out carbohydrates. . Hypertension - well controlled - continue [...] to assure normal liver response to medications. Elevated glucose - cut back on carbohydrates. we will repeat your blood glucose check in October - this gives you 3 months to change your diet and cut out carbohydrates. . Hypertension - well controlled - continue [...] to assure normal liver response to medications. Elevated glucose - cut back on carbohydrates. . Hypertension - continue with current medications, [...] notify clinic with any questions or concerns. 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 Hypertension - well controlled - continue with current medications, continue with no added salt diet. Pt has been encouraged to exercise daily. The pt has been advised to call the office if there are any acute concerns about change in blood pressure readings at home. Left knee pain -patient is going to have knee replacement with Dr Rothman - will refer to Dr Suggs for cardiac clearance -Dr Cohen in to see patient and recommend that Marta have her surgery at [facility] so she can see her as well as any specialists if needed. RX for walker provided to help with stability and prevent falling. DECREASE THE AMLODIPINE TO 1 PILL DAILY. [...] in blood pressure readings at home. . Sinusitis - Pt has acute infection - pain in face, maxillary region, Pt informed to use decongestant, RX given to patient, sinus rinses also recommended. Call if symptoms do not show improvement. Allergies - chronic - recommended pt to [...] spray in the nasal steroid allergy spray. . Medicare Exam - today we discussed [...] TWO hours after a meal - try [place] on your knee. Decrease Salt in diet. [...] appointment with then soon. Pt to try [place] rub on the knees to help reduce [...] side effects or allergic type reactions. . Tinea-rx sent to patient's pharmacy and instructed on use -keep groin clean/dry -call if symptoms do not resolve or if any worse HTN-elevated today-monitor and home and call if continues to be elevated . Allergies - chronic - recommended pt [...] Call if symptoms do not show improvement. . Sinusitis - Pt has acute infection - pain in face, maxillary region, Pt informed to use decongestant, RX given to patient, sinus rinses also recommended. Call if symptoms do not show improvement. Allergies - chronic - recommended pt to [...] spray in the nasal steroid allergy spray. start nexium over the counter for a couple weeks probiotic over the counter while on the antibiotics start zyrtec daily over the counter continue your flonase. . Sinusitis - Pt has acute infection - pain in face, maxillary region, Pt informed to use decongestant, RX given to patient, sinus rinses also recommended. Call if symptoms do not show improvement. Allergies - chronic - recommended pt to [...] spray in the nasal steroid allergy spray. Esophageal Reflux - the patient has been counseled against excessive intake of caffeine, spicy foods, peppermint, and cinnamon - all of which can exacerbate esophageal reflux. The patient is to take medications as prescribed and call the office if the symptoms are not improving. co-enzyme Q10 - Qunol - take daily [...] medications. Restart the lipitor at 10mg nightly. biotin sweet oil to right ear and then come back in to have ears flushed kenalog injection today . Sinusitis - Pt has acute infection - pain in face, maxillary region, Pt informed to use decongestant, RX given to patient, sinus rinses also recommended. Call if symptoms do not show improvement. Cerumen-use sweet oil x 1 week and return to have ears flushes Oral pain-rx for nystatin provided and instructed to follow up in the office if symptoms do not resolve or if any worse centrum silver for women or a One [...] cells are fine. BIOTENE mouth spray . Medicare Exam - today we discussed [...] her DOPA paperwork for health care surrogate. . Hypertension - well controlled - continue [...]
--- OUTSIDE RECORDS SUMMARY | 2018-06-30 13:57 | XMS REPORT | CCD ---
Author Author Berenice Cohen Organization Berenice Cohen MD, [facility] Address [address] [place] [address] Phone Care Team Providers Care Studio Designer Name Role Phone PP Unavailable CCM Unavailable Summary Purpose Interface Exchange Insurance Providers Payer name Policy type / Coverage type Covered green party ID Effective Begin Date Effective End Date [employer] Commercial Insurance [id number] Unknown Unknown Family history Son Diagnosis Age [...] Unknown Retired 08/14/[address]: 475633099 Never smoker 08/14/[address]: 050141550 Never drinks alcohol 08/14/2014 Allergies, Adverse Reactions, Alerts Substance Reaction Codes Entered Date Inactivated Date Status AUGMENTIN hives, RxNorm: 667056 08/14/2014 No Inactive Date Active [id number] REDUCTASE INHIBITORS myalgias, Unknown 2015 No Inactive Date Active Past Medical History Illness Codes Condition Status Onset Date Resolved Date Localized edema ICD-9 : 782.3 ICD-10: R60.0 Active 04/23/2015 Unknown Essential (primary) hypertension ICD-9: 401.1 ICD-10: I10 Active 12/23/2015 Unknown Unilateral primary osteoarthritis, left knee ICD-9: [...] Problems Condition Codes Effective Dates Condition Status Localized edema ICD-9 : 782.3 ICD-10: R60.0 04/23/2015 Active Essential (primary) hypertension ICD-9: 401.1 ICD-10: I10 12/23/2015 Active Unilateral primary osteoarthritis, left knee ICD-9: [...] Start Date Stop Date Status Fill Instructions Keflex 500 mg capsule RxNorm: 914322 1 Capsule(s) PO TID and take a probiotic BID x7days 06/11/2018 06/17/2018 Active take with probiotic BID Lasix 40 mg tablet RxNorm: 912991 1 Tablet(s) PO daily 201806/09/2018 Inactive potassium chloride ER 20 mEq tablet,extended release RxNorm: 069957 1 Tablet(s) PO daily 06/07/2018 06/09/2018 Inactive Voltaren 1 % topical gel RxNorm: 908410 1 Application TOP QID as needed 06/04/2018 No Stop Date Active Carafate 1 gram tablet RxNorm: 010941 1 Tablet(s) PO QID as needed 05/25/2018 06/03/2018 Inactive Carafate 1 gram tablet RxNorm: 403224 1 Tablet(s) PO QID as needed 05/25/2018 05/24/2018 Inactive Zithromax Z-Dylan 250 mg tablet RxNorm: 428161 1 Tablet(s) PO UD 05/02/2018 06/03/2018 Inactive glipizide 5 mg tablet RxNorm: 463709 1 Tablet(s) PO BID 201808/15/2018 Active glipizide 5 mg tablet RxNorm: 189548 1 Tablet(s) PO BID 201804/17/2018 Inactive Xanax 0.25 mg tablet RxNorm: 413915 1 Tablet(s) PO TID as needed anxiety 04/11/2018 06/09/2018 Inactive Zithromax Z-Dylan 250 mg tablet RxNorm: 501713 1 Tablet(s) PO UD 02/06/2018 04/17/2018 Inactive Zyrtec 10 mg tablet RxNorm: 9847899 1 Tablet(s) PO daily 12/0801/06/2018 Inactive Zithromax Z-Dylan 250 mg tablet RxNorm: 932455 1 Tablet(s) PO UD 12/08/2017 02/05/2018 Inactive Lipitor 10 mg tablet RxNorm: 975189 1 Tablet(s) PO QHS 201706/21/2018 Active Lipitor 10 mg tablet RxNorm: 581807 TAKE 1 TABLET BY MOUTH EVERY DAY AT BEDTIME 11/24/2017 No Stop Date Active lisinopril 10 mg tablet RxNorm: 177814 1 Tablet(s) PO daily 08/17/2018 Active prednisone 20 mg tablet RxNorm: 519583 2 Tablet(s) PO daily 11/17/2017 Inactive Keflex 500 mg capsule RxNorm: 001215 1 Capsule(s) PO TID and take a probiotic BID x7days 11/07/2017 11/13/2017 Inactive take with probiotic BID amlodipine 5 mg tablet RxNorm: 353302 1 Tablet(s) PO daily 10/06/2018 Active cefdinir 300 mg capsule RxNorm: 491793 1 Capsule(s) PO BID 09/23/2017 Inactive cefdinir 300 mg capsule RxNorm: 427759 1 Capsule(s) PO BID started by Dr. Davila 09/14/2017 09/13/2017 Inactive betamethasone dipropionate 0.05 % topical cream RxNorm: 587521 1 Application TOP BID 08/29/2017 10/09/2017 Inactive mix with clotrimazole and apply to affected area clotrimazole 1 % topical cream RxNorm: 089644 1 Application TOP BID 08/29/2017 10/09/2017 Inactive mix with betamethasone and apply to affected area nystatin 100,000 unit/mL oral suspension RxNorm: 641451 5 Milliliter(s) PO QID 08/29/2017 09/17/2017 Inactive lisinopril 10 mg tablet RxNorm: 583194 1 Tablet(s) PO daily 11/14/2017 Inactive Kenalog 40 mg/mL suspension for injection RxNorm: 0429700 1 Milliliter(s) Inj 07/28/2017 07/28/2017 Inactive nystatin 100,000 unit/mL oral suspension RxNorm: 226841 5 Milliliter(s) PO QID 07/28/2017 08/06/2017 Inactive Keflex 500 mg capsule RxNorm: 314463 1 Capsule(s) PO TID 201708/03/2017 Inactive Flonase Allergy Relief 50 mcg/actuation nasal spray, suspension RxNorm: 0193169 USE ONE SPRAY(S) IN EACH NOSTRIL TWICE DAILY 07/25/2017 No Stop Date Active meclizine 25 mg tablet RxNorm: 939755 TAKE ONE TABLET BY MOUTH THREE TIMES DAILY NEEDED 07/25/2017 No Stop Date Active Voltaren 1 % topical gel RxNorm: 814770 1 Application TOP QID as needed 06/20/2017 06/03/2018 Inactive Zithromax Z-Dylan 250 mg tablet RxNorm: 681724 1 Tablet(s) PO UD 06/20/2017 07/27/2017 Inactive z pack as directed Keflex 500 mg capsule RxNorm: 647444 1 Capsule(s) PO TID 201706/01/2017 Inactive Zithromax Z-Dylan 250 mg tablet RxNorm: 580041 1 Tablet(s) PO UD 04/27/2017 06/19/2017 Inactive z pack as directed lisinopril 10 mg tablet RxNorm: 588827 1 Tablet(s) PO daily 07/22/2017 Inactive Lipitor 10 mg tablet RxNorm: 532146 1 Tablet(s) PO QHS 201711/06/2017 Inactive Zithromax Z-Dylan 250 mg tablet RxNorm: 699458 1 Tablet(s) PO UD 02/15/2017 04/26/2017 Inactive z pack as directed meclizine 25 mg tablet RxNorm: 949617 TAKE ONE TABLET BY MOUTH THREE TIMES DAILY NEEDED 01/23/2017 07/24/2017 Inactive Zithromax Z-Dylan 250 mg tablet RxNorm: 435151 1 Tablet(s) PO UD 01/05/2017 02/14/2017 Inactive z pack as directed losartan 50 mg tablet RxNorm: 809843 1 Tablet(s) PO daily 201604/10/2017 Inactive amlodipine 5 mg tablet RxNorm: 644902 1 Tablet(s) PO daily 10/11/2017 Inactive Zithromax Z-Dylan 250 mg tablet RxNorm: 769408 1 Tablet(s) PO UD 12/16/2016 01/04/2017 Inactive z pack as directed Zyrtec 10 mg tablet RxNorm: 7307725 1 Tablet(s) PO daily 12/1601/14/2017 Inactive Lipitor 10 mg tablet RxNorm: 835335 1 Tablet(s) PO QHS 201602/22/2017 Inactive Zithromax Z-Dylan 250 mg tablet RxNorm: 795907 1 Tablet(s) PO UD 09/27/2016 12/15/2016 Inactive z pack as directed Lipitor 10 mg tablet RxNorm: 201862 1 Tablet(s) PO QHS 201610/25/2016 Inactive guaifenesin 400 mg tablet RxNorm: 817975 1 Tablet(s) PO BID as needed 08/04/2016 No Stop Date Active cefdinir 300 mg capsule RxNorm: 938697 1 Capsule(s) PO BID started by Dr. Davila 08/04/2016 08/13/2016 Inactive amlodipine 10 mg tablet RxNorm: 230914 1 Tablet(s) PO daily 07/201612/21/2016 Inactive Keflex 500 mg capsule RxNorm: 296844 1 Capsule(s) PO TID 201607/27/2016 Inactive Zyrtec 10 mg tablet RxNorm: 2226270 1 Tablet(s) PO daily 07/0107/30/2016 Inactive Xanax 0.25 mg tablet RxNorm: 731198 1 Tablet(s) PO TID as needed anxiety 07/01/2016 08/27/2016 Inactive amlodipine 5 mg tablet RxNorm: 442840 1 Tablet(s) PO daily 06/201607/30/2016 Inactive Keflex 500 mg capsule RxNorm: 097925 1 Capsule(s) PO TID 201607/03/2016 Inactive Keflex 500 mg capsule RxNorm: 314132 1 Capsule(s) PO TID 201606/23/2016 Inactive Keflex 500 mg capsule RxNorm: 591953 1 Capsule(s) PO TID 201606/30/2016 Inactive Flonase Allergy Relief 50 mcg/actuation nasal spray, suspension RxNorm: 7313245 USE ONE SPRAY(S) IN EACH NOSTRIL TWICE DAILY 06/20/2016 05/15/2017 Inactive amlodipine 10 mg tablet RxNorm: 681131 1 Tablet(s) PO daily 04/201606/28/2016 Inactive Lipitor 10 mg tablet RxNorm: 875213 1 Tablet(s) PO QHS 201608/14/2016 Inactive Flonase Allergy Relief 50 mcg/actuation nasal spray, suspension RxNorm: 5527234 USE ONE SPRAY(S) IN EACH NOSTRIL TWICE DAILY 04/18/2016 05/17/2016 Inactive cephalexin 500 mg capsule RxNorm: 070407 1 Capsule(s) PO TID 04/05/2016 Inactive take with probiotics BID amlodipine 10 mg tablet RxNorm: 898628 1 Tablet(s) PO daily 02/201605/29/2016 Inactive Bactroban 2 % topical cream RxNorm: 334390 1 Application TOP BID 03/30/2016 04/08/2016 Inactive Zithromax Z-Dylan 250 mg tablet RxNorm: 767691 1 Tablet(s) PO UD 03/10/2016 05/15/2016 Inactive z pack as directed Keflex 500 mg capsule RxNorm: 926352 1 Capsule(s) PO TID 201502/25/2016 Inactive take with probiotics BID acyclovir 800 mg tablet RxNorm: 726666 1 Tablet(s) PO TID 01/2402/21/2016 Inactive Zithromax Z-Dylan 250 mg tablet RxNorm: 568454 1 Tablet(s) PO UD 01/19/2016 01/24/2016 Inactive z pack Flonase Allergy Relief 50 mcg/actuation nasal spray, suspension RxNorm: 9562344 USE ONE SPRAY(S) IN EACH NOSTRIL TWICE DAILY 12/28/2015 02/25/2016 Inactive Kenalog 40 mg/mL suspension for injection RxNorm: 3261712 Milliliter(s) Inj 12/18/2015 12/18/2015 Inactive Keflex 500 mg capsule RxNorm: 528190 1 Capsule(s) PO TID 201512/24/2015 Inactive Zithromax Z-Dylan 250 mg tablet RxNorm: 928795 1 Tablet(s) PO UD 12/09/2015 12/23/2015 Inactive z pack meclizine 25 mg tablet RxNorm: 836838 1 Tablet(s) PO TID as needed 12/09/2015 12/08/2015 Inactive meclizine 25 mg tablet RxNorm: 371316 1 Tablet(s) PO TID as needed 12/09/2015 02/26/2016 Inactive Keflex 500 mg capsule RxNorm: 046530 1 Capsule(s) PO TID 201511/22/2015 Inactive Cipro 500 mg tablet RxNorm: 488280 1 Tablet(s) PO BID 201511/13/2015 Inactive Keflex 500 mg capsule RxNorm: 710527 1 Capsule(s) PO TID 201510/30/2015 Inactive Xanax 0.25 mg tablet RxNorm: 814322 1 Tablet(s) PO TID as needed anxiety 09/18/2015 11/13/2015 Inactive Keflex 500 mg capsule RxNorm: 324772 1 Capsule(s) PO TID 201508/19/2015 Inactive losartan 50 mg tablet RxNorm: 578933 1 Tablet(s) PO daily 201507/07/2015 Inactive Pepcid 20 mg tablet RxNorm: 098199 1 Tablet(s) PO BID 201507/07/2015 Inactive Pepcid 20 mg tablet RxNorm: 913021 1 Tablet(s) PO BID 201501/31/2016 Inactive losartan 50 mg tablet RxNorm: 366053 1 Tablet(s) PO daily 201501/31/2016 Inactive prednisone 20 mg tablet RxNorm: 038168 2 Tablet(s) PO daily 06/22/2015 Inactive prednisone 20 mg tablet RxNorm: 235844 2 Tablet(s) PO daily 12/23/2015 Inactive Diflucan 100 mg tablet RxNorm: 379243 TAKE ONE TABLET BY MOUTH ONCE DAILY 06/12/2015 12/23/2015 Inactive Zithromax Z-Dylan 250 mg tablet RxNorm: 549457 1 Tablet(s) PO UD 06/05/2015 07/06/2015 Inactive z pack amlodipine 5 mg tablet RxNorm: 877876 1 Tablet(s) PO daily 03/29/2016 Inactive Zetia 10 mg tablet RxNorm: 086008 1 Tablet(s) PO daily 201506/14/2015 Inactive valsartan 160 mg tablet RxNorm: 419450 1 Tablet(s) PO daily 07/07/2015 Inactive Lipitor 10 mg tablet RxNorm: 844751 1 Tablet(s) PO QHS 201505/18/2015 Inactive Lipitor 10 mg tablet RxNorm: 917720 1 Tablet(s) PO QHS 201504/27/2015 Inactive Zithromax 250 mg tablet RxNorm: 149667 Tablet(s) PO UD 201504/28/2015 Inactive Keflex 500 mg capsule RxNorm: 610737 1 Capsule(s) PO TID 201503/22/2015 Inactive Keflex 500 mg capsule RxNorm: 934673 1 Capsule(s) PO TID 201504/01/2015 Inactive Xanax 0.25 mg tablet RxNorm: 931029 1 Tablet(s) PO TID as needed anxiety 03/12/2015 07/04/2016 Inactive carvedilol 25 mg tablet RxNorm: 538528 1 Tablet(s) PO BID 03/1201/31/2016 Inactive amlodipine 5 mg tablet RxNorm: 680627 1 Tablet(s) PO BID 201505/18/2015 Inactive Diflucan 100 mg tablet RxNorm: 440740 1 Tablet(s) PO daily 03/21/2015 Inactive Diflucan 100 mg tablet RxNorm: 527808 1 Tablet(s) PO daily 02/14/2015 Inactive Diflucan 100 mg tablet RxNorm: 518984 1 Tablet(s) PO daily 06/201401/05/2015 Inactive Diflucan 100 mg tablet RxNorm: 035620 1 Tablet(s) PO daily 06/201412/31/2014 Inactive nystatin 100,000 unit/mL oral suspension RxNorm: 774933 5 Milliliter(s) PO QID 12/24/2014 06/14/2015 Inactive nystatin 100,000 unit/mL oral suspension RxNorm: 326591 5 Milliliter(s) PO QID 12/24/2014 12/23/2014 Inactive Zithromax 250 mg tablet RxNorm: 558844 1 Tablet(s) PO daily 12/19/2014 Inactive Zithromax 250 mg tablet RxNorm: 268602 1 Tablet(s) PO daily 12/14/2014 Inactive Flonase Allergy Relief 50 mcg/actuation nasal spray, suspension RxNorm: 1 [place] NASAL BID 12/11/2014 12/10/2014 Inactive Flonase Allergy Relief 50 mcg/actuation nasal spray, suspension RxNorm: 3191861 1 [employer] [place] NASAL BID 12/11/20142015 Inactive amlodipine 5 mg tablet RxNorm: 966349 2 Tablet(s) PO daily 11/13/2014 Inactive amlodipine 5 mg tablet RxNorm: 986397 2 Tablet(s) PO daily 03/11/2015 Inactive Lotrisone 1 %-0.05 % topical cream RxNorm: 703907 1 TOP BID until healed 10/17/2014 10/30/2014 Inactive Lotrisone 1 %-0.05 % topical cream RxNorm: 761473 1 TOP BID until healed 10/16/2014 10/16/2014 Inactive Lotrisone 1 %-0.05 % topical cream RxNorm: 723262 1 TOP BID until healed 10/06/2014 10/15/2014 Inactive Keflex 500 mg capsule RxNorm: 112532 1 Capsule(s) PO TID 201408/11/2014 Inactive Keflex 500 mg capsule RxNorm: 497821 1 Capsule(s) PO TID 201408/18/2014 Inactive clotrimazole 1 % topical solution RxNorm: 417736 1 Drop(s) TOP BID No Start Date Active Vitamin D3 5,000 unit tablet RxNorm: 694786 1 Tablet(s) PO daily No Start Date Active guaifenesin 400 mg tablet RxNorm: 329974 1 Tablet(s) PO BID as needed No Start Date 08/03/2016 Inactive Lotrisone 1 %-0.05 % topical cream RxNorm: 158449 1 TOP BID until healed No Start Date 10/05/2014 Inactive lisinopril 40 mg tablet RxNorm: 835358 1 Tablet(s) PO daily No Start Date 05/18/2015 Inactive amlodipine 5 mg tablet RxNorm: 092755 1 Tablet(s) PO daily No Start Date 11/13/2014 Inactive indapamide 1.25 mg tablet RxNorm: 160106 1 Tablet(s) PO daily No Start Date 01/31/2016 Inactive aspirin 81 mg tablet RxNorm: 573044 1 Tablet(s) PO daily No Start Date 02/07/2017 Inactive Medication Administered Medication Codes Instructions Start Date Status Kenalog 40 mg/mL suspension for injection RxNorm: 0615527 1Milliliter 07/28/2017 No longer Active Kenalog 40 mg/mL suspension for injection RxNorm: 5904270 Milliliter 12/18/2015 No longer Active Immunizations Vaccine Codes Date Status Influenza CVX: 141 11/13/2017 completed Influenza CVX: 141 12/05/2016 completed Influenza CVX: 141 11/26/2015 completed PPD Unknown 06/05/2015 completed Influenza CVX: 141 12/01/2014 completed Influenza CVX: 141 11/27/2012 completed Pneumococcal CVX: 33 11/28/2011 completed Assessments Condition Codes Effective Dates Localized edema ICD-10: R60.0 ICD-9: 782.3 06/07/2018 Essential (primary) hypertension ICD-10: I10 ICD-9: 401.1 05/22/2018 Unilateral primary osteoarthritis, left knee ICD-10: M17.12 [...] Reason For Visit Effective Dates Notes edema 06/07/2018 pre-op/surgery consult 05/22/2018 hypertension 04/11/2018 [...] 30.8 pg 04/11/2018 Cbc With Differential Ord2 Coleman% 13.0 % 04/11/2018 Cbc With Differential Ord2 [...] 3.09 K/ul 04/11/2018 Cbc With Differential Ord2 Coleman ABS# 1.2 K/ul 04/11/2018 Cbc With Differential Ord2 Eos ABS# 0.2 K/ul 04/11/2018 Cbc With Differential Ord2 Baso ABS# 0.1 K/ul 04/11/2018 Tsh Ord6 TSH (3rd IS) 2.85 uIU/mL 04/11/2018 %Hba1C Nhm628 % HbA1c 77957-1 7.1 % 04/11/2018 %Hba1C Cnx646 Gluc Ave 157 mg/dL 04/11/2018 Lipid Ord30 CHOL 150 mg/dL 04/11/2018 Lipid Ord30 HDL 38.0 mg/dl 04/11/2018 Lipid Ord30 TRIG 203 mg/dL 04/11/2018 Lipid Ord30 LDL 71 mg/dL 04/11/2018 Lipid Ord30 C/HDL 3.9 Ratio 04/11/2018 Vitamin D 25 Oh [id number] VITAMIN D, 25 HYDROXY 48.86 ng/mL Comp Metabolic Vfe764 NA 138 mEq/L 04/11/2018 Comp Metabolic Dyx264 K 4.4 mEq/L 04/11/2018 Comp Metabolic Oiy673 CL 101 mEq/L 04/11/2018 Comp Metabolic Nxl916 CO2 29.0 mEq/L 04/11/2018 Comp Metabolic Cxc349 ANION GAP 12 04/11/2018 Comp Metabolic Ryn665 GLUCOSE 120 mg/dL 04/11/2018 Comp Metabolic Qnj742 Creat 1.2 mg/dL 04/11/2018 Comp Metabolic Ogg226 eGFR 47 ml/min/1.73m2 04/11/2018 Comp Metabolic Blc943 BUN 23 mg/dL 04/11/2018 Comp Metabolic Hxu931 B/C Ratio 19.7 Ratio 04/11/2018 Comp Metabolic Hkc406 CALCIUM 10.3 mg/dL 04/11/2018 Comp Metabolic Jdn653 ALK PHOS 40 U/L 04/11/2018 Comp Metabolic Ilm754 AST(SGOT) 15 U/L 04/11/2018 Comp Metabolic Ddc767 ALT(SGPT) 9 U/L 04/11/2018 Comp Metabolic Wqg484 BILI T 1.0 mg/dL 04/11/2018 Comp Metabolic Afp632 ALBUMIN 4.3 g/dL 04/11/2018 Comp Metabolic Nmk166 TPRO 6.8 g/dL 04/11/2018 Comp Metabolic Fqf278 GLOB 2.5 g/dL 04/11/2018 Comp Metabolic Cgr570 A/G Ratio 1.7 Ratio 04/11/2018 Comp Metabolic Fte563 Osmo 281 mOsmo 04/11/2018 %Hba1C Ngh148 % HbA1c 62384-6 6.5 % 12/01/2016 %Hba1C Lko926 Gluc Ave 140 mg/dL 12/01/2016 Lipid Ord30 [...] 31.3 pg 04/12/2016 Cbc With Differential Ord2 Coleman% 13.3 % 04/12/2016 Cbc With Differential Ord2 [...] 2.85 K/ul 04/12/2016 Cbc With Differential Ord2 Coleman ABS# 1.1 K/ul 04/12/2016 Cbc With Differential Ord2 Eos ABS# 0.1 K/ul 04/12/2016 Cbc With Differential Ord2 Baso ABS# 0.0 K/ul 04/12/2016 Comp Metabolic Ycn377 NA 129 mEq/L 04/12/2016 Comp Metabolic Idi964 K 4.0 mEq/L 04/12/2016 Comp Metabolic Ilu340 CL 93 mEq/L 04/12/2016 Comp Metabolic Ruv709 CO2 29.0 mEq/L 04/12/2016 Comp Metabolic Wzn801 ANION GAP 11 04/12/2016 Comp Metabolic Uoe679 GLUCOSE 100 mg/dL 04/12/2016 Comp Metabolic Lck408 Creat 1.0 mg/dL 04/12/2016 Comp Metabolic Xlm114 eGFR 55 ml/min/1.73m2 04/12/2016 Comp Metabolic Bee692 BUN 19 mg/dL 04/12/2016 Comp Metabolic Zdv190 B/C Ratio 18.8 Ratio 04/12/2016 Comp Metabolic Ghc335 CALCIUM 9.3 mg/dL 04/12/2016 Comp Metabolic Toc683 ALK PHOS 38 U/L 04/12/2016 Comp Metabolic Teo025 AST(SGOT) 17 U/L 04/12/2016 Comp Metabolic Tex322 ALT(SGPT) 11 U/L 04/12/2016 Comp Metabolic Lfa329 BILI T 1.0 mg/dL 04/12/2016 Comp Metabolic Ljj028 ALBUMIN 4.2 g/dL 04/12/2016 Comp Metabolic Jri630 TPRO 6.6 g/dL 04/12/2016 Comp Metabolic Van280 GLOB 2.4 g/dL 04/12/2016 Comp Metabolic Nqj462 A/G Ratio 1.8 Ratio 04/12/2016 Comp Metabolic Jcy737 Osmo 261 mOsmo 04/12/2016 Lipid Ord30 CHOL 265 mg/dL 04/12/2016 Lipid Ord30 HDL 42.0 mg/dl 04/12/2016 Lipid Ord30 TRIG 246 mg/dL 04/12/2016 Lipid Ord30 LDL 174 mg/dL 04/12/2016 Lipid Ord30 C/HDL 6.3 Ratio 04/12/2016 Tsh Ord6 hTSH II 2.49 uIU/mL 04/12/2016 Tsh Ord6 hTSH II 1.83 uIU/mL 06/12/2015 Comp Metabolic Lea500 NA 137 mEq/L 06/12/2015 Comp Metabolic Poy813 K 4.4 mEq/L 06/12/2015 Comp Metabolic Zkm982 CL 103 mEq/L 06/12/2015 Comp Metabolic Dub029 CO2 27.0 mEq/L 06/12/2015 Comp Metabolic Wgv345 ANION GAP 11 06/12/2015 Comp Metabolic Frh353 GLUCOSE 87 mg/dL 06/12/2015 Comp Metabolic Ovy617 Creat 1.3 mg/dL 06/12/2015 Comp Metabolic Xer039 eGFR 43 ml/min/1.73m2 06/12/2015 Comp Metabolic Qdq582 BUN 32 mg/dL 06/12/2015 Comp Metabolic Dah777 B/C Ratio 25.4 Ratio 06/12/2015 Comp Metabolic Hok327 CALCIUM 9.5 mg/dL 06/12/2015 Comp Metabolic Mxb542 ALK PHOS 36 U/L 06/12/2015 Comp Metabolic Ycl705 AST(SGOT) 16 U/L 06/12/2015 Comp Metabolic Tcm867 ALT(SGPT) 17 U/L 06/12/2015 Comp Metabolic Hoa654 BILI T 1.0 mg/dL 06/12/2015 Comp Metabolic Prn336 ALBUMIN 4.1 g/dL 06/12/2015 Comp Metabolic Vks412 TPRO 6.5 g/dL 06/12/2015 Comp Metabolic Ugo116 GLOB 2.5 g/dL 06/12/2015 Comp Metabolic Ler913 A/G Ratio 1.7 Ratio 06/12/2015 Comp Metabolic Utc707 Osmo 280 mOsmo 06/12/2015 Lipid Ord30 CHOL [...] 30.6 pg 06/12/2015 Cbc With Differential Ord2 Coleman% 11.0 % 06/12/2015 Cbc With Differential Ord2 [...] 1.96 K/ul 06/12/2015 Cbc With Differential Ord2 [place] ABS# 0.9 K/ul 06/12/2015 Cbc With Differential [...] 30.3 pg 03/12/2015 Cbc With Differential Ord2 Coleman% 10.7 % 03/12/2015 Cbc With Differential Ord2 [...] 2.00 K/ul 03/12/2015 Cbc With Differential Ord2 [place] ABS# 1.0 K/ul 03/12/2015 Cbc With Differential Ord2 Eos ABS# 0.1 K/ul 03/12/2015 Cbc With Differential Ord2 Baso ABS# 0.0 K/ul 03/12/2015 Cbc With Differential Ord2 New Analyzer Notice Please note new ref ranges starting 03-11-2015 due to implemntation of new five part differential hematolgy analyzer. 03/12/2015 Comp Metabolic Pqg963 NA 139 mEq/L 03/12/2015 Comp Metabolic Fnw776 K 4.2 mEq/L 03/12/2015 Comp Metabolic Sct859 CL 101 mEq/L 03/12/2015 Comp Metabolic Fhn708 CO2 28.0 mEq/L 03/12/2015 Comp Metabolic Ktx350 ANION GAP 14 03/12/2015 Comp Metabolic Rhu562 GLUCOSE 78 mg/dL 03/12/2015 Comp Metabolic Rlo793 Creat 1.1 mg/dL 03/12/2015 Comp Metabolic Sbt476 eGFR 51 ml/min/1.73m2 03/12/2015 Comp Metabolic Vdk545 BUN 17 mg/dL 03/12/2015 Comp Metabolic Gwv638 B/C Ratio 15.6 Ratio 03/12/2015 Comp Metabolic Yhc499 CALCIUM 9.4 mg/dL 03/12/2015 Comp Metabolic Krg821 ALK PHOS 46 U/L 03/12/2015 Comp Metabolic Yuj471 AST(SGOT) 16 U/L 03/12/2015 Comp Metabolic Ogf931 ALT(SGPT) 12 U/L 03/12/2015 Comp Metabolic Tzn985 BILI T 0.8 mg/dL 03/12/2015 Comp Metabolic Yzw513 ALBUMIN 4.1 g/dL 03/12/2015 Comp Metabolic Mvs460 TPRO 6.6 g/dL 03/12/2015 Comp Metabolic Ptu395 GLOB 2.6 g/dL 03/12/2015 Comp Metabolic Gpt325 A/G Ratio 1.6 Ratio 03/12/2015 Comp Metabolic Jbd200 Osmo 278 mOsmo 03/12/2015 Lipid Ord30 CHOL [...] hTSH II 3.15 uIU/mL 12/01/2014 Comp Metabolic Jem390 NA 132 mEq/L 12/01/2014 Comp Metabolic Iyl980 K 4.4 mEq/L 12/01/2014 Comp Metabolic Wsv306 CL 99 mEq/L 12/01/2014 Comp Metabolic Unb740 CO2 27.0 mEq/L 12/01/2014 Comp Metabolic Jto130 ANION GAP 10 12/01/2014 Comp Metabolic Ine965 GLUCOSE 86 mg/dL 12/01/2014 Comp Metabolic Hah819 Creat 1.2 mg/dL 12/01/2014 Comp Metabolic Dau055 eGFR 46 ml/min/1.73m2 12/01/2014 Comp Metabolic Xnh005 BUN 32 mg/dL 12/01/2014 Comp Metabolic Cfr148 B/C Ratio 27.1 Ratio 12/01/2014 Comp Metabolic Uqp107 CALCIUM 9.4 mg/dL 12/01/2014 Comp Metabolic Ssn329 ALK PHOS 35 U/L 12/01/2014 Comp Metabolic Qdr267 AST(SGOT) 14 U/L 12/01/2014 Comp Metabolic Xzr751 ALT(SGPT) 13 U/L 12/01/2014 Comp Metabolic Nea668 BILI T 0.8 mg/dL 12/01/2014 Comp Metabolic Hmh602 ALBUMIN 4.0 g/dL 12/01/2014 Comp Metabolic Kqo499 TPRO 6.8 g/dL 12/01/2014 Comp Metabolic Ocx498 GLOB 2.8 g/dL 12/01/2014 Comp Metabolic Sna864 A/G Ratio 1.4 Ratio 12/01/2014 Comp Metabolic Iin355 Osmo 271 mOsmo 12/01/2014 Review of Systems [...] time 05/26/2017 None Full Exam - General 1994 Constitutional general appearance Overall: well developed 04/24/2017 None Full Exam - General 1994 Constitutional general appearance Overall: in no acute distress 04/24/2017 None Full Exam - General 1995 Constitutional general appearance Overall: well nourished 04/24/2017 None Full Exam - General 1994 Constitutional general appearance Hygiene/Attention to Grooming: good hygiene 04/24/2017 None Full Exam - General 1995 Eyes conjunctiva /eyelids Overall: conjunctiva clear 04/24/2017 None Full Exam - General 1995 Eyes conjunctiva /eyelids Overall: cornea clear 04/24/2017 [...] dry 12/16/2016 None Full Exam - General 1994 Constitutional [...] dry 03/30/2016 None Full Exam - General 1995 Ears/Nose/Throat oral cavity/pharynx/larynx Oral mucosa: thrush 03/30/2016 [...] FLU VACC PRSV FREE INC ANTIG CPT-4: 92222 11/13/2017 ADMIN INFLUENZA VIRUS VAC CPT-4: G0008 11/13/2017 TRIAMCINOLONE ACET INJ NOS CPT-4: J3301 07/28/2017 PPPS, SUBSEQ VISIT CPT -4: G0439 02/08/2017 URINALYSIS NONAUTO W/O SCOPE CPT-4: 73476 08/15/2016 PPPS, SUBSEQ VISIT CPT -4: G0439 02/01/2016 TRIAMCINOLONE ACET INJ NOS CPT-4: J3301 12/18/2015 ADMIN INFLUENZA VIRUS VAC CPT-4: G0008 11/26/2015 FLU VACC 4 GISELA 3 YRS PLUS IM Formatting Model/CDA Sections, Assigned to/Malina Mazariegos SNOMED CT: 47319819 CPT-4: 88176Pzcmkwz 11/26/2015 URINALYSIS NONAUTO W/O SCOPE CPT-4: 54361 11/20/2015 URINALYSIS NONAUTO W/O SCOPE CPT-4: 43058 11/13/2015 IMMUNIZATION ADMIN CPT -4: 14334 12/01/2014 FLU VACC 4 GISELA 3 YRS PLUS IM Formatting Model/CDA Sections, Assigned to/Malina Mazariegos SNOMED CT: 12461657 CPT-4: 21803Gxptdrj 12/01/2014 Vital Signs Date Vital 06/07/2018 Blood Pressure 1: 134/72 Code : 8480-6 BMI: 24.3 Code : 47452-1 Heart Rate 1 : 72 bpm Height: 5'2" SpO2: 98% Weight: 133 lbs 05/22/2018 Blood Pressure 1: 128/50 Code : 8480-6 BMI: 24.6 Code : 07736-4 Heart Rate 1 : 76 bpm Height: 5'1" SpO2: 98% Weight: 130 lbs 04/11/2018 Blood Pressure 1: 142/56 Code : 8480-6 BMI: 25.1 Code : 91656-0 Heart Rate 1 : 68 bpm Height: 5'1" SpO2: 96% Weight: 133 lbs 02/06/2018 Blood Pressure 1: 142/60 Code : 8480-6 BMI: 25.3 Code : 17019-3 Heart Rate 1 : 68 bpm Height: 5'1" SpO2: 99% Temperature: 37.0 (C) / 98.6 (F) Weight: 134 lbs 12/08/2017 Blood Pressure 1: 140/52 Code : 8480-6 BMI: 25.5 Code : 78015-6 Heart Rate 1 : 77 bpm Height: 5'1" SpO2: 96% Temperature: 36.6 (C) / 97.9 (F) Weight: 135 lbs 11/13/2017 Blood Pressure 1: 134/54 Code : 8480-6 BMI: 24.8 Code : 24937-2 Heart Rate 1 : 73 bpm Height: 5'1" SpO2: 98% Weight: 131 lbs 08/29/2017 Blood Pressure 1: 162/64 Code : 8480-6 BMI: 24.9 Code : 18570-8 Heart Rate 1 : 61 bpm Height: 5'1" SpO2: 96% Weight: 132 lbs 07/28/2017 Blood Pressure 1: 148/62 Code : 8480-6 BMI: 25.1 Code : 76025-8 Heart Rate 1 : 67 bpm Height: 5'1" SpO2: 99% Temperature: 36.4 (C) / 97.5 (F) Weight: 133 lbs 06/20/2017 Blood Pressure 1: 140/52 Code : 8480-6 BMI: 25.3 Code : 35158-8 Heart Rate 1 : 64 bpm Height: 5'1" SpO2: 98% Weight: 134 lbs 05/26/2017 Blood Pressure 1: 140/56 Code : 8480-6 BMI: 25.7 Code : 03067-2 Heart Rate 1 : 74 bpm Height: 5'1" SpO2: 95% Weight: 136 lbs 04/24/2017 Blood Pressure 1: 140/68 Code : 8480-6 BMI: 24.6 Code : 53860-9 Heart Rate 1 : 67 bpm Height: 5'1" SpO2: 97% Weight: 130 lbs 02/08/2017 Blood Pressure 1: 134/76 Code : 8480-6 BMI: 24.9 Code : 31139-6 Heart Rate 1 : 67 bpm Height: 5'1" SpO2: 98% Waist Measure (cm): 89121 cm Weight: 132 lbs 12/22/2016 Blood Pressure 1: 156/80 Code : 8480-6 BMI: 24.2 Code : 62467-4 Heart Rate 1 : 65 bpm Height: 5'1" SpO2: 98% Weight: 128 lbs 12/16/2016 Blood Pressure 1: 138/62 Code : 8480-6 BMI: 23.8 Code : 91686-6 Heart Rate 1 : 63 bpm Height: 5'1" SpO2: 98% Weight: 126 lbs 08/15/2016 Blood Pressure 1: 130/60 Code : 8480-6 BMI: 25.3 Code : 44028-4 Heart Rate 1 : 72 bpm Height: 5'1" SpO2: 95% Weight: 134 lbs 08/02/2016 Blood Pressure 1: 160/62 Code : 8480-6 BMI: 25.3 Code : 04897-8 Heart Rate 1 : 67 bpm Height: 5'1" SpO2: 97% Weight: 134 lbs 07/21/2016 Blood Pressure 1: 148/66 Code : 8480-6 BMI: 25.9 Code : 51953-9 Heart Rate 1 : 71 bpm Height: 5'1" SpO2: 97% Temperature: 36.8 (C) / 98.2 (F) Weight: 137 lbs 07/01/2016 Blood Pressure 1: 142/72 Code : 8480-6 BMI: 26.5 Code : 43664-6 Heart Rate 1 : 68 bpm Height: 5'1" SpO2: 94% Weight: 140 lbs 05/16/2016 Blood Pressure 1: 162/76 Code : 8480-6 Blood Pressure 1: 138/68 Code: 8480-6 BMI: 25.7 Code: 98502-7 Heart Rate 1: 58 bpm Height: 5'1" SpO2: 98% Weight: 136 lbs 04/06/2016 Blood Pressure 1: 162/72 Code : 8480-6 Blood Pressure 1: 138/74 Code: 8480-6 BMI: 25.7 Code: 57994-2 Heart Rate 1: 75 bpm Height: 5'1" SpO2: 97% Weight: 136 lbs 03/30/2016 Blood Pressure 1: 188/80 Code : 8480-6 BMI: 26.3 Code : 20573-1 Heart Rate 1 : 75 bpm Height: 5'1" SpO2: 98% Weight: 139 lbs 02/01/2016 Blood Pressure 1: 140/72 Code : 8480-6 BMI: 25.3 Code : 53148-9 Heart Rate 1 : 65 bpm Height: 5'1" SpO2: 97% Waist Measure (cm): 84 cm Weight: 134 lbs 01/25/2016 Blood Pressure 1: 140/74 Code : 8480-6 BMI: 25.1 Code : 50304-9 Heart Rate 1 : 66 bpm Height: 5'1" SpO2: 98% Weight: 133 lbs 12/24/2015 Blood Pressure 1: 142/66 Code : 8480-6 BMI: 24.9 Code : 06674-8 Heart Rate 1 : 54 bpm Height: 5'1" SpO2: 97% Weight: 132 lbs 12/18/2015 Blood Pressure 1: 152/62 Code : 8480-6 BMI: 25.5 Code : 95678-7 Heart Rate 1 : 66 bpm Height: 5'1" SpO2: 96% Weight: 135 lbs 12/11/2015 Blood Pressure 1: 136/54 Code : 8480-6 Heart Rate 1: 72 bpm SpO2: 98% Weight: 137 lbs 11/26/2015 Blood Pressure 1: 142/70 Code : 8480-6 BMI: 25.3 Code : 70798-0 Heart Rate 1 : 64 bpm Height: 5'1" SpO2: 97% Weight: 134 lbs 11/20/2015 Blood Pressure 1: 154/70 Code : 8480-6 Heart Rate 1: 65 bpm SpO2: 98% 10/23/2015 Blood Pressure 1: 138/62 Code : 8480-6 Heart Rate 1: 55 bpm SpO2: 98% 10/21/2015 Blood Pressure 1: 142/68 Code : 8480-6 BMI: 25.7 Code : 37450-9 Heart Rate 1 : 73 bpm Height: 5'1" SpO2: 98% Weight: 136 lbs 07/15/2015 Blood Pressure 1: 130/60 Code : 8480-6 BMI: 26.6 Code : 08248-3 Heart Rate 1 : 70 bpm Height: 5'1" SpO2: 97% Weight: 141 lbs 06/15/2015 Blood Pressure 1: 118/64 Code : 8480-6 BMI: 24.9 Code : 13000-8 Heart Rate 1 : 66 bpm Height: 5'1" SpO2: 99% Weight: 132 lbs 06/05/2015 Blood Pressure 1: 142/60 Code : 8480-6 Blood Pressure 1: 135/58 Code: 8480-6 Heart Rate 1: 64 bpm SpO2: 99% 05/19/2015 Blood Pressure 1: 146/60 Code : 8480-6 BMI: 27.1 Code : 25845-0 Heart Rate 1 : 66 bpm Height: 5'1" SpO2: 97% Weight: 143 lbs 8 oz 04/24/2015 Blood Pressure 1: 148/58 Code : 8480-6 BMI: 25.9 Code : 67158-2 Heart Rate 1 : 61 bpm Height: 5'1" SpO2: 98% Weight: 137 lbs 03/12/2015 Blood Pressure 1: 140/72 Code : 8480-6 BMI: 25.1 Code : 13714-3 Heart Rate 1 : 68 bpm Height: 5'1" SpO2: 98% Weight: 133 lbs 01/12/2015 Blood Pressure 1: 146/60 Code : 8480-6 BMI: 25.7 Code : 36254-9 Heart Rate 1 : 48 bpm Height: 5'1" SpO2: 97% Weight: 136 lbs 12/11/2014 Blood Pressure 1: 144/56 Code : 8480-6 Blood Pressure 1: 125/65 Code: 8480-6 BMI: 25.1 Code: 81142-0 Heart Rate 1: 56 bpm Height: 5'1" SpO2: 96% Weight: 133 lbs 12/01/2014 Blood Pressure 1: 136/60 Code : 8480-6 Heart Rate 1: 56 bpm SpO2: 96% Weight: 131 lbs 5 oz 08/14/2014 Blood Pressure 1: 132/72 Code : 8480-6 BMI: 25.5 Code : 55085-9 Heart Rate 1 : 73 bpm Height: 5'1" SpO2: 94% Weight: 135 lbs Functional Status No Functional Status data History of Present Illness Symptom Name Status Result Effective Date Notes Onset and Resolution sudden in onset 06/07/2018 [...] data Encounters Encounter Performer Location Codes Date 47421 EST. PATIENT, LEVEL III Diagnosis: Localized edema[ICD10: R60.0] [facility] CPT-4 : 75728 06/07/2018 ([id number]) 42912 EST. PATIENT, LEVEL III Diagnosis: Essential (primary) hypertension[ICD10: I10] Diagnosis: Unilateral primary osteoarthritis, left knee[ICD10: M17.12] Berenice Cohen MD , [facility] CPT-4: 34658 05/22/2018 ([id number]) 33551 EST. PATIENT, LEVEL IV Diagnosis: Essential (primary) hypertension[ICD10: I10] Diagnosis: Other abnormal glucose[ICD10: R73.09] Diagnosis: Mixed hyperlipidemia[ICD10: E78.2] Diagnosis: Vitamin D deficiency, unspecified[ICD10: E55.9] Berenice Cohen MD, [facility] CPT-4: 66217 04/11/2018 30888 EST. PATIENT, LEVEL IV Diagnosis: Other acute sinusitis[ICD10: J01.80] Diagnosis: Other allergic rhinitis[ICD10: J30.89] Evelyn Cohen MD, [facility] CPT-4: 09707 02/06/2018 59208 EST. PATIENT, LEVEL III Diagnosis: Other allergic rhinitis[ICD10: J30.89] Diagnosis: Other acute sinusitis[ICD10: J01.80] Evelyn Cohen MD, [facility] CPT-4: 68432 12/08/2017 ([id number]) 86817 EST. PATIENT, LEVEL IV Diagnosis: Essential (primary) hypertension[ICD10: I10] Diagnosis: Chronic maxillary sinusitis[ICD10: J32.0] Diagnosis: Mixed hyperlipidemia[ICD10: E78.2] Diagnosis: Other abnormal glucose[ICD10: R73.09] Berenice Cohen MD, [facility] CPT-4: 49084 11/13/2017 ([id number]) 28631 EST. PATIENT, LEVEL III Diagnosis: Tinea corporis[ICD10: B35.4] Diagnosis: Essential (primary) hypertension[ICD10: I10] Doris Cohen MD, [facility] CPT-4: 18856 08/29/2017 ([id number]) 85139 EST. PATIENT, LEVEL III Diagnosis: Acute recurrent maxillary sinusitis[ICD10: J01.01] Diagnosis: Other allergic rhinitis[ICD10: J30.89] Doris Cohen MD, [facility] CPT-4: 11757 07/28/2017 43359 EST. PATIENT, LEVEL IV Diagnosis: Other acute sinusitis[ICD10: J01.80] Diagnosis: Other allergic rhinitis[ICD10: J30.89] Diagnosis: Otalgia, bilateral[ICD10: H92.03] Diagnosis: Pain in right knee[ICD10: M25.561] Diagnosis: Pain in left knee[ICD10: M25.562] Evelyn Cohen MD, [facility] CPT -4: 22248 06/20/2017 19347 EST. PATIENT, LEVEL IV Diagnosis: Other acute sinusitis[ICD10: J01.80] Diagnosis: Other allergic rhinitis[ICD10: J30.89] Diagnosis: Gastro-esophageal reflux disease without esophagitis[ICD10: K21.9] Evelyn Cohen MD, [facility] CPT-4: 68406 05/26/2017 85783 EST. PATIENT, LEVEL III Diagnosis: Essential (primary) hypertension[ICD10: I10] Evelyn Cohen MD, [facility] CPT-4: 25872 04/24/2017 ([id number]) 07208 EST. PATIENT, LEVEL IV Diagnosis: Essential (primary) hypertension[ICD10: I10] Diagnosis: Other abnormal glucose[ICD10: R73.09] Diagnosis: Mixed hyperlipidemia[ICD10: E78.2] Berenice Cohen MD, [facility] CPT-4: 78062 12/22/2016 56787 EST. PATIENT, LEVEL IV Diagnosis: Other acute sinusitis[ICD10: J01.80] Diagnosis: Other allergic rhinitis[ICD10: J30.89] Evelyn Cohen MD, [facility] CPT-4: 52488 12/16/2016 ([id number]) 00415 EST. PATIENT, LEVEL IV Diagnosis: Essential (primary) hypertension[ICD10: I10] Diagnosis: Mixed hyperlipidemia[ICD10: E78.2] Diagnosis: Dysuria[ICD10: R30.0] Berenice Cohen MD, [facility] CPT-4: 11430 08/15/2016 73363 EST. PATIENT, LEVEL III Diagnosis: Other acute sinusitis[ICD10: J01.80] Diagnosis: Other allergic rhinitis[ICD10: J30.89] Diagnosis: Otalgia, bilateral[ICD10: H92.03] Evelyn Cohen MD, [facility] CPT -4: 02448 08/02/2016 ([id number]) 83699 EST. PATIENT, LEVEL III Diagnosis: Acute recurrent maxillary sinusitis[ICD10: J01.01] Diagnosis: Otalgia, right ear[ICD10: H92.01] Doris Cohen MD, [facility] CPT-4: 30359 07/21/2016 81983 EST. PATIENT, LEVEL III Diagnosis: Dysuria[ICD10: R30.0] Diagnosis: Other allergic rhinitis[ICD10: J30.89] Evelyn Cohen MD, [facility] CPT-4: 33428 07/01/2016 ([id number]) 45047 EST. PATIENT, LEVEL IV Diagnosis: Essential (primary) hypertension[ICD10: I10] Diagnosis: Mixed hyperlipidemia[ICD10: E78.2] Berenice Cohen MD, [facility] CPT-4: 03762 05/16/2016 67498 EST. PATIENT, LEVEL III Diagnosis: Mixed hyperlipidemia[ICD10: E78.2] Diagnosis: Essential (primary) hypertension[ICD10: I10] Diagnosis: Laceration without foreign body of left hand, subsequent encounter[ ICD10: S61.412D] Evelyn Cohen MD, [facility] CPT-4: 95237 04/06/2016 ([id number]) 86493 EST. PATIENT, LEVEL III Diagnosis: Essential (primary) hypertension[ICD10: I10] Berenice Cohen MD, [facility] CPT-4: 45114 03/30/2016 ([id number]) 09662 EST. 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 PATIENT, LEVEL III Diagnosis: Essential (primary) hypertension[ICD10: I10] Berenice Cohen MD, [facility] CPT-4: 13084 12/24/2015 17945 EST. PATIENT, LEVEL III Diagnosis: Other acute sinusitis[ICD10: J01.80] Diagnosis: Other allergic rhinitis[ICD10: J30.89] Evelyn Cohen MD, [facility] CPT-4: 24076 12/18/2015 ([id number]) Miscellaneous no charge Diagnosis: Essential (primary) hypertension[ICD10: I10] Evelyn Cohen MD, [facility] CPT-4: 75606 12/11/2015 ([id number]) 84781 EST. PATIENT, LEVEL IV Diagnosis: Essential (primary) hypertension[ICD10: I10] Diagnosis: Other abnormal glucose[ICD10: R73.09] Diagnosis: Encounter for immunization[ICD10: Z23] Berenice Cohen MD, [facility] CPT-4: 55146 11/26/2015 ([id number]) Miscellaneous no charge Diagnosis: Bitten by dog, initial encounter[ICD10: W54.0XXA] Evelyn Cohen MD, [facility] CPT-4: 16533 10/29/2015 ([id number]) Miscellaneous no charge Diagnosis: Essential (primary) hypertension[ICD10: I10] Diagnosis: Bitten by dog, initial encounter[ICD10: W54.0XXA] Evelyn Cohen MD, [facility] CPT-4: 86981 10/23/2015 60009 EST. PATIENT, LEVEL III Diagnosis: Cellulitis of face[ICD10: L03.211] Diagnosis: Bitten by dog, initial encounter[ICD10: W54.0XXA] Evelyn Cohen MD, [facility] CPT-4: 04387 10/21/2015 ([id number]) Miscellaneous no charge Diagnosis: Essential (primary) hypertension[ICD10: I10] Evelyn Cohen MD, [facility] CPT-4: 23898 07/15/2015 ([id number]) 21738 EST. PATIENT, LEVEL IV Diagnosis: Essential (primary) hypertension[ICD10: I10] Diagnosis: Mixed hyperlipidemia[ICD10: E78.2] Diagnosis: Dry mouth, unspecified[ICD10: R68.2] Berenice Cohen MD, [facility] CPT-4: 17848 06/15/2015 ([id number]) Miscellaneous no charge Diagnosis: Essential (primary) hypertension[ICD10: I10] Doris Cohen MD, [facility] CPT-4: 31098 06/05/2015 ([id number]) 08280 EST. PATIENT, LEVEL IV Diagnosis: Mammographic microcalcification found on diagnostic imaging of breast [ICD10: R92.0] Diagnosis: Edema, unspecified[ICD10: R60.9] Diagnosis: Essential (primary) hypertension[ICD10: I10] Berenice Cohen MD, [facility] CPT-4: 75458 05/19/2015 45808 EST. PATIENT, LEVEL IV Diagnosis: Other acute sinusitis[ICD10: J01.80] Diagnosis: Acute nasopharyngitis [common cold][ICD10: J00] Diagnosis: Other allergic rhinitis[ICD10: J30.89] Diagnosis: Localized edema[ICD10: R60.0] Diagnosis: Mixed hyperlipidemia[ICD10: E78.2] Evelyn Cohen MD, [facility] CPT-4: 20423 04/24/2015 ([id number]) 96943 EST. PATIENT, LEVEL IV Diagnosis: Essential (primary) hypertension[ICD10: I10] Diagnosis: Abscess of liver[ICD10: K75.0] Diagnosis: Anemia, unspecified[ICD10: D64.9] Berenice Cohen MD, [facility] CPT-4: 50085 03/12/2015 27374 EST. PATIENT, LEVEL IV Diagnosis: Essential (primary) hypertension[ICD10: I10] Diagnosis: Candidal stomatitis[ICD10: B37.0] Diagnosis: Pain in unspecified knee[ICD10: M25.569] Diagnosis: Edema, unspecified[ICD10: R60.9] Evelyn Cohen MD, [facility] CPT- 4: 60632 01/12/2015 ([id number]) 46226 EST. PATIENT, LEVEL III Diagnosis: Pain in right foot[ICD10: M79.671] Berenice Cohen MD, [facility] CPT-4: 67356 12/11/2014 ([id number]) 24168 EST. PATIENT, LEVEL IV Diagnosis: Abscess of liver[ICD10: K75.0] Diagnosis: Hypo-osmolality and hyponatremia[ICD10: E87.1] Diagnosis: Essential (primary) hypertension[ICD10: I10] Diagnosis: VACCIN FOR INFLUENZA[ICD10: Z23] [facility] CPT-4: 65055 12/01/2014 ([id number]) OFFICE VISIT, NEW - LEVEL 4 Diagnosis: ESSENTIAL HYPERTENSION[ICD9: 401.9] Diagnosis: Chronic maxillary sinusitis[ICD9: 473.0] [facility] CPT-4: 32348 08/14/2014 Plan of Care Planned Activity Notes Codes Status Date Visit Plan: Edema - pt has been advised to elevate legs to prevent dependent edema, compression has been recommended to help to naturally decrease peripheral edema. Diuretic use has been discussed and pt has been instructed in appropriate use of such medication as necessary to further attempt to reduce peripheral edema. 06/07/2018 [phone] ([facility] min[facility] Complex 06/07/2018 Patient Education: Patient Medication Summary Completed 06/07/2018 [phone] ([facility] min) Moderate 05/28/2018 Referral: Eduardo Suggs [...] that Marta have her surgery at [facility] so she can see her as well as any specialists if needed. RX for walker provided to help with stability and prevent falling. 05/22/2018 App[facility]ment: [phone] [phone] [place] (30 min) Complex 05/22/2018 Patient Education: Patient Medication Summary Completed 05/22/2018 Care Plan: Referral Order SNOMED-CT : [id number] Pending 05/22/2018 Visit Plan: Hypertension - well [...] to medications. 04/11/2018 Appointment: Berenice Cohen WPtel: [facility] (15 min) Moderate 04/11/2018 Patient Education: Patient Medication Summary Completed 04/11/2018 Patient Education: Hypertension Completed 04/11/2018 Patient Education: Cholesterol Management Completed 04/11/2018 Patient Education: Patient Medication Summary Completed 03/30/2018 Care Plan: Comp Metabolic Pending 03/30/2018 Care Plan: Cbc With Differential Pending 03/30/2018 Care Plan: Tsh Pending 03/30/2018 Care Plan: Lipid Pending 03/30/2018 Appointment: Berenice Cohen WPtel: [address] [place], [place] [phone] (15 min) Moderate 03/28/2018 Appointment: Berenice Cohen WPtel: [facility] (15 min) Moderate 03/19/2018 Visit Plan: Sinusitis [...] spray. 02/06/2018 Appointment: Evelyn West WPtel: [phone] [facility] (15 min) Moderate 02/06/2018 Patient Education: Patient Medication Summary Completed 02/06/2018 Patient Education: Patient Medication Summary Completed 12/29/2017 Care Plan: %Hba1C [facility] : 21828-5 Pending 12/11/2017 Visit Plan: Sinusitis - Pt [...] spray. 12/08/2017 Appointment: Evelyn West WPtel: [phone] [facility] (15 min) Moderate 12/08/2017 Patient Education: Patient [...] shot today 11/13/2017 Appointment: Berenice Cohen WPtel: [facility] (15 min) Moderate 11/13/2017 Patient Education: Patient Medication Summary Completed 11/13/2017 Patient Education: Cholesterol Management Completed 11/13/2017 Visit Plan: Tinea-rx sent to patient's pharmacy and instructed on use-keep groin clean/dry -call if symptoms do not resolve or if any worse HTN-elevated today-monitor and home and call if continues to be elevated 08/29/2017 Appointment: Doris Sheffield WPtel: [phone] (15 min) Moderate 08/29/2017 Patient Education: Patient [...] any worse 07/28/2017 Appointment: Doris Sheffield WPtel: [phone] (30 min) Complex 07/28/2017 Patient Education: Patient [...] improve. 06/20/2017 Appointment: [phone] ([facility] min) Moderate 06/20/2017 Patient Education: [...] improving. 05/26/2017 Appointment: [phone] (15 min) Moderate 05/26/2017 Patient Education: [...] acute concerns. 04/24/2017 Appointment: [phone] (30 min) Complex 04/24/2017 Patient Education: Patient [...] care surrogate. 02/08/2017 Appointment: [phone] [facility] [facility] - Annual Wellness Visit 02/08/2017 Patient [...] vaccine today 12/22/2016 Appointment: Berenice Cohen WPtel: [phone] [facility] (15 min) Moderate 12/22/2016 Patient Education: Patient [...] allergy spray. 12/16/2016 Appointment: Evelyn West WPtel: [phone] [facility] (30 min) Complex 12/16/2016 Patient Education: Patient Medication Summary Completed 12/16/2016 Appointment: Berenice Cohen WPtel: [phone] [facility] (15 min) Moderate 11/15/2016 Visit Plan: Hypertension [...] carbohydrates. 08/15/2016 Appointment: Berenice Cohen WPtel: [phone] [facility]66[facility] (15 min) Moderate 08/15/2016 Patient Education: Patient Medication Summary Completed 08/15/2016 Appointment: Doris Sheffield WPtel: [phone] [phone] (15 min) Moderate 08/05/2016 Visit Plan: Allergies [...] improvement. 08/02/2016 Appointment: Evelyn West WPtel: [phone] [facility] (30 min) Complex 08/02/2016 Patient Education: Patient [...] flushed 07/21/2016 Appointment: Doris Sheffield WPtel: [phone] [phone] [place] (15 min) Moderate 07/21/2016 Patient Education: Patient [...] 10mg nightly. 05/16/2016 Appointment: Berenice Cohen WPtel[facility] ([facility] min) Moderate 05/16/2016 Patient Education: [...] or concerns. 04/06/2016 Appointment: Evelyn West WPtel: [facility]0 [facility] (10 min) Simple 04/06/2016 Patient Education: Patient [...] twice daily. 03/30/2016 Appointment: Berenice Cohen WPtel: [facility] ([facility] min) Moderate 03/30/2016 Patient Education: Patient Medication Summary Completed 03/30/2016 Appointment: [facility]el[phone] [facility] (15 min) Moderate 03/24/2016 Visit Plan: [...] surrogate. 02/01/2016 Appointment: Evelyn West WPtel: [phone] [facility] [facility] - Annual Wellness Visit 02/01/2016 Patient Education: Patient Medication Summary Completed 02/01/2016 Visit Plan: Apthous ulcer - rx for acyclovir 800mg tid x7 days Sample of Voltaren gel to use on knees tid prn 01/25/2016 Appointment: Berenice Cohen WPtel: [facility]7 [facility] (15 min) Moderate 01/25/2016 Patient Education: Patient [...] home. 12/24/2015 Appointment: Berenice Cohen WPtel: [phone] [facility] (15 min) Moderate 12/24/2015 Patient Education: Patient [...] show improvement. 12/18/2015 Appointment: Doris Sheffield WPtel: [phone] [phone] (15 min) Moderate 12/18/2015 Patient Education: Patient [...] meal - 11/26/2015 Appointment: Berenice Cohen WPtel: [phone] [facility] (15 min) Moderate 11/26/2015 Patient Education: Patient [...] in pain. 10/21/2015 Appointment: Doris Sheffield WPtel: [phone] [phone] (15 min) Moderate 10/21/2015 Patient Education: Patient [...] mouth spray 06/15/2015 Appointment: Berenice Cohen WPtel: [phone] [facility] (15 min) Moderate 06/15/2015 Patient Education: Patient Medication Summary Completed 06/15/2015 Patient Education: Patient Medication Summary Completed 06/12/2015 Appointment: [phone] [facility] [place] (15 min) Moderate 06/11/2015 Appointment: Nurse Visit [...] the day 03/12/2015 Appointment: Berenice Cohen WPtel: [address] [place], [place] [address] (15 min) Moderate 03/12/2015 Patient Education: Patient [...] appointment with then soon. Pt to try [employer] rub on the knees to help reduce [...] is sore 12/11/2014 Appointment: Berenice Cohen WPtel: [address] [place] [address] (15 min) Moderate 12/11/2014 Patient Education: Patient [...] not improving. 12/01/2014 Appointment: Berenice Cohen WPtel: [address] [place], [place] [address] (15 min) Moderate 12/01/2014 Patient Education: Patient Medication Summary Completed 12/01/2014 Patient Education: Hypertension Completed 12/01/2014 Appointment: Berenice Cohen WPtel: [address] [place], [place] [phone] (15 min) Moderate 09/15/2014 Visit Plan: Hypertension [...] if symptoms do not improve. 08/14/2014 Appointment: CarsonBerenice WPtel: [facility] [place] ([place] New Patient 08/14/2014 Patient [...] to assure normal liver response to medications. increase the amlodipine to 10mg daily - [...] foot where it is sore [employer] will contact you for a colon screen test - it is a colon cancer screening that you will do at home and send in to the tubular products fabricator. . No fracture of foot - recommended [...] that Marta have her surgery at [facility] so she can see her as [...] TWO hours after a meal - try [place] on your knee. Decrease Salt in diet. [...] appointment with then soon. Pt to try [place] rub on the knees to help reduce [...]
[2018-06-30] MEDS ORDERED: fentaNYL INJECTION 100 MCG/2 ML AMP IVP STA (13:58)
--- OUTSIDE RECORDS SUMMARY | 2018-06-30 14:00 | XMS REPORT | CCD ---
Author Author Berenice Cohen Organization Berenice Cohen MD, [facility] Address [address] [place] [address] Phone Care Team Providers Care Credit Risk Manager Name Role Phone PP Unavailable CCM Unavailable Summary Purpose Interface Exchange Insurance Providers Payer name Policy type / Coverage type Covered libertarian ID Effective Begin Date Effective End Date [employer] Commercial Insurance [id number] Unknown Unknown Family history Son Diagnosis Age [...] Unknown Retired 08/14/[address]: 236659322 Never smoker 08/14/[address]: 983923584 Never drinks alcohol 08/14/2014 Allergies, Adverse Reactions, Alerts Substance Reaction Codes Entered Date Inactivated Date Status AUGMENTIN hives, RxNorm: 130209 08/14/2014 No Inactive Date Active [id number] REDUCTASE INHIBITORS myalgias, Unknown 2015 No Inactive [...] Date Stop Date Status Fill Instructions Lasix 40 mg tablet RxNorm: 043282 1 Tablet(s) PO daily 201806/09/2018 Active potassium chloride ER 20 mEq tablet,extended release RxNorm: 420072 1 Tablet(s) PO daily 06/07/2018 06/09/2018 Active Voltaren 1 % topical gel RxNorm: 813877 1 Application TOP QID as needed 06/04/2018 No Stop Date Active Carafate 1 gram tablet RxNorm: 480046 1 Tablet(s) PO QID as needed 05/25/2018 06/03/2018 Inactive Carafate 1 gram tablet RxNorm: 757887 1 Tablet(s) PO QID as needed 05/25/2018 05/24/2018 Inactive Zithromax Z-Dylan 250 mg tablet RxNorm: 655040 1 Tablet(s) PO UD 05/02/2018 06/03/2018 Inactive glipizide 5 mg tablet RxNorm: 735906 1 Tablet(s) PO BID 201808/15/2018 Active glipizide 5 mg tablet RxNorm: 489358 1 Tablet(s) PO BID 201804/17/2018 Inactive Xanax 0.25 mg tablet RxNorm: 530811 1 Tablet(s) PO TID as needed anxiety 04/11/2018 06/09/2018 Active Zithromax Z-Dylan 250 mg tablet RxNorm: 943777 1 Tablet(s) PO UD 02/06/2018 04/17/2018 Inactive Zyrtec 10 mg tablet RxNorm: 3746998 1 Tablet(s) PO daily 12/0801/06/2018 Inactive Zithromax Z-Dylan 250 mg tablet RxNorm: 248319 1 Tablet(s) PO UD 12/08/2017 02/05/2018 Inactive Lipitor 10 mg tablet RxNorm: 118530 1 Tablet(s) PO QHS 201706/21/2018 Active Lipitor 10 mg tablet RxNorm: 462093 TAKE 1 TABLET BY MOUTH EVERY DAY AT BEDTIME 11/24/2017 No Stop Date Active lisinopril 10 mg tablet RxNorm: 670572 1 Tablet(s) PO daily 08/17/2018 Active prednisone 20 mg tablet RxNorm: 682073 2 Tablet(s) PO daily 11/17/2017 Inactive Keflex 500 mg capsule RxNorm: 044863 1 Capsule(s) PO TID and take a probiotic BID x7days 11/07/2017 11/13/2017 Inactive take with probiotic BID amlodipine 5 mg tablet RxNorm: 571465 1 Tablet(s) PO daily 10/06/2018 Active cefdinir 300 mg capsule RxNorm: 282933 1 Capsule(s) PO BID 09/23/2017 Inactive cefdinir 300 mg capsule RxNorm: 308824 1 Capsule(s) PO BID started by Dr. Davila 09/14/2017 09/13/2017 Inactive betamethasone dipropionate 0.05 % topical cream RxNorm: 377425 1 Application TOP BID 08/29/2017 10/09/2017 Inactive mix with clotrimazole and apply to affected area clotrimazole 1 % topical cream RxNorm: 419184 1 Application TOP BID 08/29/2017 10/09/2017 Inactive mix with betamethasone and apply to affected area nystatin 100,000 unit/mL oral suspension RxNorm: 205976 5 Milliliter(s) PO QID 08/29/2017 09/17/2017 Inactive lisinopril 10 mg tablet RxNorm: 865328 1 Tablet(s) PO daily 11/14/2017 Inactive Kenalog 40 mg/mL suspension for injection RxNorm: 9509985 1 Milliliter(s) Inj 07/28/2017 07/28/2017 Inactive nystatin 100,000 unit/mL oral suspension RxNorm: 279945 5 Milliliter(s) PO QID 07/28/2017 08/06/2017 Inactive Keflex 500 mg capsule RxNorm: 316415 1 Capsule(s) PO TID 201708/03/2017 Inactive Flonase Allergy Relief 50 mcg/actuation nasal spray, suspension RxNorm: 5421116 USE ONE SPRAY(S) IN EACH NOSTRIL TWICE DAILY 07/25/2017 No Stop Date Active meclizine 25 mg tablet RxNorm: 107628 TAKE ONE TABLET BY MOUTH THREE TIMES DAILY NEEDED 07/25/2017 No Stop Date Active Voltaren 1 % topical gel RxNorm: 628116 1 Application TOP QID as needed 06/20/2017 06/03/2018 Inactive Zithromax Z-Dylan 250 mg tablet RxNorm: 403732 1 Tablet(s) PO UD 06/20/2017 07/27/2017 Inactive z pack as directed Keflex 500 mg capsule RxNorm: 537092 1 Capsule(s) PO TID 201706/01/2017 Inactive Zithromax Z-Dylan 250 mg tablet RxNorm: 946493 1 Tablet(s) PO UD 04/27/2017 06/19/2017 Inactive z pack as directed lisinopril 10 mg tablet RxNorm: 059434 1 Tablet(s) PO daily 07/22/2017 Inactive Lipitor 10 mg tablet RxNorm: 360821 1 Tablet(s) PO QHS 201711/06/2017 Inactive Zithromax Z-Dylan 250 mg tablet RxNorm: 859512 1 Tablet(s) PO UD 02/15/2017 04/26/2017 Inactive z pack as directed meclizine 25 mg tablet RxNorm: 187164 TAKE ONE TABLET BY MOUTH THREE TIMES DAILY NEEDED 01/23/2017 07/24/2017 Inactive Zithromax Z-Dylan 250 mg tablet RxNorm: 519405 1 Tablet(s) PO UD 01/05/2017 02/14/2017 Inactive z pack as directed losartan 50 mg tablet RxNorm: 565907 1 Tablet(s) PO daily 201604/10/2017 Inactive amlodipine 5 mg tablet RxNorm: 703258 1 Tablet(s) PO daily 10/11/2017 Inactive Zithromax Z-Dylan 250 mg tablet RxNorm: 798747 1 Tablet(s) PO UD 12/16/2016 01/04/2017 Inactive z pack as directed Zyrtec 10 mg tablet RxNorm: 9360761 1 Tablet(s) PO daily 12/1601/14/2017 Inactive Lipitor 10 mg tablet RxNorm: 937756 1 Tablet(s) PO QHS 201602/22/2017 Inactive Zithromax Z-Dylan 250 mg tablet RxNorm: 012808 1 Tablet(s) PO UD 09/27/2016 12/15/2016 Inactive z pack as directed Lipitor 10 mg tablet RxNorm: 428655 1 Tablet(s) PO QHS 201610/25/2016 Inactive guaifenesin 400 mg tablet RxNorm: 826677 1 Tablet(s) PO BID as needed 08/04/2016 No Stop Date Active cefdinir 300 mg capsule RxNorm: 723517 1 Capsule(s) PO BID started by Dr. Davila 08/04/2016 08/13/2016 Inactive amlodipine 10 mg tablet RxNorm: 593609 1 Tablet(s) PO daily 07/201612/21/2016 Inactive Keflex 500 mg capsule RxNorm: 648665 1 Capsule(s) PO TID 201607/27/2016 Inactive Zyrtec 10 mg tablet RxNorm: 0108213 1 Tablet(s) PO daily 07/0107/30/2016 Inactive Xanax 0.25 mg tablet RxNorm: 460426 1 Tablet(s) PO TID as needed anxiety 07/01/2016 08/27/2016 Inactive amlodipine 5 mg tablet RxNorm: 536368 1 Tablet(s) PO daily 06/201607/30/2016 Inactive Keflex 500 mg capsule RxNorm: 882712 1 Capsule(s) PO TID 201607/03/2016 Inactive Keflex 500 mg capsule RxNorm: 460432 1 Capsule(s) PO TID 201606/23/2016 Inactive Keflex 500 mg capsule RxNorm: 118016 1 Capsule(s) PO TID 201606/30/2016 Inactive Flonase Allergy Relief 50 mcg/actuation nasal spray, suspension RxNorm: 1040558 USE ONE SPRAY(S) IN EACH NOSTRIL TWICE DAILY 06/20/2016 05/15/2017 Inactive amlodipine 10 mg tablet RxNorm: 214573 1 Tablet(s) PO daily 04/201606/28/2016 Inactive Lipitor 10 mg tablet RxNorm: 495812 1 Tablet(s) PO QHS 201608/14/2016 Inactive Flonase Allergy Relief 50 mcg/actuation nasal spray, suspension RxNorm: 8666085 USE ONE SPRAY(S) IN EACH NOSTRIL TWICE DAILY 04/18/2016 05/17/2016 Inactive cephalexin 500 mg capsule RxNorm: 303500 1 Capsule(s) PO TID 04/05/2016 Inactive take with probiotics BID amlodipine 10 mg tablet RxNorm: 106834 1 Tablet(s) PO daily 02/201605/29/2016 Inactive Bactroban 2 % topical cream RxNorm: 461310 1 Application TOP BID 03/30/2016 04/08/2016 Inactive Zithromax Z-Dylan 250 mg tablet RxNorm: 935644 1 Tablet(s) PO UD 03/10/2016 05/15/2016 Inactive z pack as directed Keflex 500 mg capsule RxNorm: 423061 1 Capsule(s) PO TID 201502/25/2016 Inactive take with probiotics BID acyclovir 800 mg tablet RxNorm: 319508 1 Tablet(s) PO TID 01/2402/21/2016 Inactive Zithromax Z-Dylan 250 mg tablet RxNorm: 665050 1 Tablet(s) PO UD 01/19/2016 01/24/2016 Inactive z pack Flonase Allergy Relief 50 mcg/actuation nasal spray, suspension RxNorm: 3300563 USE ONE SPRAY(S) IN EACH NOSTRIL TWICE DAILY 12/28/2015 02/25/2016 Inactive Kenalog 40 mg/mL suspension for injection RxNorm: 3927213 Milliliter(s) Inj 12/18/2015 12/18/2015 Inactive Keflex 500 mg capsule RxNorm: 388006 1 Capsule(s) PO TID 201512/24/2015 Inactive Zithromax Z-Dylan 250 mg tablet RxNorm: 577055 1 Tablet(s) PO UD 12/09/2015 12/23/2015 Inactive z pack meclizine 25 mg tablet RxNorm: 828239 1 Tablet(s) PO TID as needed 12/09/2015 12/08/2015 Inactive meclizine 25 mg tablet RxNorm: 862552 1 Tablet(s) PO TID as needed 12/09/2015 02/26/2016 Inactive Keflex 500 mg capsule RxNorm: 466234 1 Capsule(s) PO TID 201511/22/2015 Inactive Cipro 500 mg tablet RxNorm: 148443 1 Tablet(s) PO BID 201511/13/2015 Inactive Keflex 500 mg capsule RxNorm: 825639 1 Capsule(s) PO TID 201510/30/2015 Inactive Xanax 0.25 mg tablet RxNorm: 330845 1 Tablet(s) PO TID as needed anxiety 09/18/2015 11/13/2015 Inactive Keflex 500 mg capsule RxNorm: 916360 1 Capsule(s) PO TID 201508/19/2015 Inactive losartan 50 mg tablet RxNorm: 707663 1 Tablet(s) PO daily 201507/07/2015 Inactive Pepcid 20 mg tablet RxNorm: 584806 1 Tablet(s) PO BID 201507/07/2015 Inactive Pepcid 20 mg tablet RxNorm: 740330 1 Tablet(s) PO BID 201501/31/2016 Inactive losartan 50 mg tablet RxNorm: 238276 1 Tablet(s) PO daily 201501/31/2016 Inactive prednisone 20 mg tablet RxNorm: 458377 2 Tablet(s) PO daily 06/22/2015 Inactive prednisone 20 mg tablet RxNorm: 677902 2 Tablet(s) PO daily 12/23/2015 Inactive Diflucan 100 mg tablet RxNorm: 020518 TAKE ONE TABLET BY MOUTH ONCE DAILY 06/12/2015 12/23/2015 Inactive Zithromax Z-Dylan 250 mg tablet RxNorm: 373629 1 Tablet(s) PO UD 06/05/2015 07/06/2015 Inactive z pack amlodipine 5 mg tablet RxNorm: 530971 1 Tablet(s) PO daily 03/29/2016 Inactive Zetia 10 mg tablet RxNorm: 019654 1 Tablet(s) PO daily 201506/14/2015 Inactive valsartan 160 mg tablet RxNorm: 472734 1 Tablet(s) PO daily 07/07/2015 Inactive Lipitor 10 mg tablet RxNorm: 686446 1 Tablet(s) PO QHS 201505/18/2015 Inactive Lipitor 10 mg tablet RxNorm: 991895 1 Tablet(s) PO QHS 201504/27/2015 Inactive Zithromax 250 mg tablet RxNorm: 024695 Tablet(s) PO UD 201504/28/2015 Inactive Keflex 500 mg capsule RxNorm: 950571 1 Capsule(s) PO TID 201503/22/2015 Inactive Keflex 500 mg capsule RxNorm: 408365 1 Capsule(s) PO TID 201504/01/2015 Inactive Xanax 0.25 mg tablet RxNorm: 658659 1 Tablet(s) PO TID as needed anxiety 03/12/2015 07/04/2016 Inactive carvedilol 25 mg tablet RxNorm: 643981 1 Tablet(s) PO BID 03/1201/31/2016 Inactive amlodipine 5 mg tablet RxNorm: 104968 1 Tablet(s) PO BID 201505/18/2015 Inactive Diflucan 100 mg tablet RxNorm: 402369 1 Tablet(s) PO daily 03/21/2015 Inactive Diflucan 100 mg tablet RxNorm: 677604 1 Tablet(s) PO daily 02/14/2015 Inactive Diflucan 100 mg tablet RxNorm: 628777 1 Tablet(s) PO daily 06/201401/05/2015 Inactive Diflucan 100 mg tablet RxNorm: 950336 1 Tablet(s) PO daily 06/201412/31/2014 Inactive nystatin 100,000 unit/mL oral suspension RxNorm: 993570 5 Milliliter(s) PO QID 12/24/2014 06/14/2015 Inactive nystatin 100,000 unit/mL oral suspension RxNorm: 326036 5 Milliliter(s) PO QID 12/24/2014 12/23/2014 Inactive Zithromax 250 mg tablet RxNorm: 535284 1 Tablet(s) PO daily 12/19/2014 Inactive Zithromax 250 mg tablet RxNorm: 500678 1 Tablet(s) PO daily 12/14/2014 Inactive Flonase Allergy Relief 50 mcg/actuation nasal spray, suspension RxNorm: 1 [place] NASAL BID 12/11/2014 12/10/2014 Inactive Flonase Allergy Relief 50 mcg/actuation nasal spray, suspension RxNorm: 6978254 1 [place] NASAL BID 12/11/20142015 Inactive amlodipine 5 mg tablet RxNorm: 994711 2 Tablet(s) PO daily 11/13/2014 Inactive amlodipine 5 mg tablet RxNorm: 568588 2 Tablet(s) PO daily 03/11/2015 Inactive Lotrisone 1 %-0.05 % topical cream RxNorm: 861349 1 TOP BID until healed 10/17/2014 10/30/2014 Inactive Lotrisone 1 %-0.05 % topical cream RxNorm: 390822 1 TOP BID until healed 10/16/2014 10/16/2014 Inactive Lotrisone 1 %-0.05 % topical cream RxNorm: 765649 1 TOP BID until healed 10/06/2014 10/15/2014 Inactive Keflex 500 mg capsule RxNorm: 613440 1 Capsule(s) PO TID 201408/11/2014 Inactive Keflex 500 mg capsule RxNorm: 951832 1 Capsule(s) PO TID 201408/18/2014 Inactive clotrimazole 1 % topical solution RxNorm: 012055 1 Drop(s) TOP BID No Start Date Active Vitamin D3 5,000 unit tablet RxNorm: 938717 1 Tablet(s) PO daily No Start Date Active guaifenesin 400 mg tablet RxNorm: 150683 1 Tablet(s) PO BID as needed No Start Date 08/03/2016 Inactive Lotrisone 1 %-0.05 % topical cream RxNorm: 404248 1 TOP BID until healed No Start Date 10/05/2014 Inactive lisinopril 40 mg tablet RxNorm: 400189 1 Tablet(s) PO daily No Start Date 05/18/2015 Inactive amlodipine 5 mg tablet RxNorm: 117722 1 Tablet(s) PO daily No Start Date 11/13/2014 Inactive indapamide 1.25 mg tablet RxNorm: 329337 1 Tablet(s) PO daily No Start Date 01/31/2016 Inactive aspirin 81 mg tablet RxNorm: 992842 1 Tablet(s) PO daily No Start Date 02/07/2017 Inactive Medication Administered Medication Codes Instructions Start Date Status Kenalog 40 mg/mL suspension for injection RxNorm: 5841883 1Milliliter 07/28/2017 No longer Active Kenalog 40 mg/mL suspension for injection RxNorm: 3606482 Milliliter 12/18/2015 No longer Active Immunizations Vaccine [...] 30.8 pg 04/11/2018 Cbc With Differential Ord2 [place]% 13.0 % 04/11/2018 Cbc With Differential Ord2 [...] 3.09 K/ul 04/11/2018 Cbc With Differential Ord2 [place] ABS# 1.2 K/ul 04/11/2018 Cbc With Differential Ord2 Eos ABS# 0.2 K/ul 04/11/2018 Cbc With Differential Ord2 Baso ABS# 0.1 K/ul 04/11/2018 Tsh Ord6 TSH (3rd IS) 2.85 uIU/mL 04/11/2018 %Hba1C Ecr133 % HbA1c 68638-0 7.1 % 04/11/2018 %Hba1C Kan225 Gluc Ave 157 mg/dL 04/11/2018 Lipid Ord30 CHOL 150 mg/dL 04/11/2018 Lipid Ord30 HDL 38.0 mg/dl 04/11/2018 Lipid Ord30 TRIG 203 mg/dL 04/11/2018 Lipid Ord30 LDL 71 mg/dL 04/11/2018 Lipid Ord30 C/HDL 3.9 Ratio 04/11/2018 Vitamin D 25 Oh Fyd3135 VITAMIN D, 25 HYDROXY 48.86 ng/mL Comp Metabolic Gel852 NA 138 mEq/L 04/11/2018 Comp Metabolic Rwo641 K 4.4 mEq/L 04/11/2018 Comp Metabolic Ilz482 CL 101 mEq/L 04/11/2018 Comp Metabolic Ljm544 CO2 29.0 mEq/L 04/11/2018 Comp Metabolic Ibx288 ANION GAP 12 04/11/2018 Comp Metabolic Ncy560 GLUCOSE 120 mg/dL 04/11/2018 Comp Metabolic Zgr927 Creat 1.2 mg/dL 04/11/2018 Comp Metabolic Udg271 eGFR 47 ml/min/1.73m2 04/11/2018 Comp Metabolic Edj843 BUN 23 mg/dL 04/11/2018 Comp Metabolic Kfb530 B/C Ratio 19.7 Ratio 04/11/2018 Comp Metabolic Glm483 CALCIUM 10.3 mg/dL 04/11/2018 Comp Metabolic Dba304 ALK PHOS 40 U/L 04/11/2018 Comp Metabolic Pbj049 AST(SGOT) 15 U/L 04/11/2018 Comp Metabolic Llp834 ALT(SGPT) 9 U/L 04/11/2018 Comp Metabolic Djg528 BILI T 1.0 mg/dL 04/11/2018 Comp Metabolic Qyh026 ALBUMIN 4.3 g/dL 04/11/2018 Comp Metabolic Wwx372 TPRO 6.8 g/dL 04/11/2018 Comp Metabolic Dup087 GLOB 2.5 g/dL 04/11/2018 Comp Metabolic Pay915 A/G Ratio 1.7 Ratio 04/11/2018 Comp Metabolic Yjd055 Osmo 281 mOsmo 04/11/2018 %Hba1C Lmi529 % HbA1c 55450-7 6.5 % 12/01/2016 %Hba1C Vjz253 Gluc Ave 140 mg/dL 12/01/2016 Lipid Ord30 [...] 31.3 pg 04/12/2016 Cbc With Differential Ord2 [place]% 13.3 % 04/12/2016 Cbc With Differential Ord2 [...] 2.85 K/ul 04/12/2016 Cbc With Differential Ord2 [place] ABS# 1.1 K/ul 04/12/2016 Cbc With Differential Ord2 Eos ABS# 0.1 K/ul 04/12/2016 Cbc With Differential Ord2 Baso ABS# 0.0 K/ul 04/12/2016 Comp Metabolic Kfw762 NA 129 mEq/L 04/12/2016 Comp Metabolic Tcs951 K 4.0 mEq/L 04/12/2016 Comp Metabolic Kbk303 CL 93 mEq/L 04/12/2016 Comp Metabolic Fqj494 CO2 29.0 mEq/L 04/12/2016 Comp Metabolic Aaw341 ANION GAP 11 04/12/2016 Comp Metabolic Njq106 GLUCOSE 100 mg/dL 04/12/2016 Comp Metabolic Klx686 Creat 1.0 mg/dL 04/12/2016 Comp Metabolic Big032 eGFR 55 ml/min/1.73m2 04/12/2016 Comp Metabolic Nhg640 BUN 19 mg/dL 04/12/2016 Comp Metabolic Dmg849 B/C Ratio 18.8 Ratio 04/12/2016 Comp Metabolic Dvm402 CALCIUM 9.3 mg/dL 04/12/2016 Comp Metabolic Qoy728 ALK PHOS 38 U/L 04/12/2016 Comp Metabolic Oql718 AST(SGOT) 17 U/L 04/12/2016 Comp Metabolic Cqa403 ALT(SGPT) 11 U/L 04/12/2016 Comp Metabolic Qxa505 BILI T 1.0 mg/dL 04/12/2016 Comp Metabolic Csb322 ALBUMIN 4.2 g/dL 04/12/2016 Comp Metabolic Vin401 TPRO 6.6 g/dL 04/12/2016 Comp Metabolic Rru289 GLOB 2.4 g/dL 04/12/2016 Comp Metabolic Xgb204 A/G Ratio 1.8 Ratio 04/12/2016 Comp Metabolic Ysb143 Osmo 261 mOsmo 04/12/2016 Lipid Ord30 CHOL 265 mg/dL 04/12/2016 Lipid Ord30 HDL 42.0 mg/dl 04/12/2016 Lipid Ord30 TRIG 246 mg/dL 04/12/2016 Lipid Ord30 LDL 174 mg/dL 04/12/2016 Lipid Ord30 C/HDL 6.3 Ratio 04/12/2016 Tsh Ord6 hTSH II 2.49 uIU/mL 04/12/2016 Tsh Ord6 hTSH II 1.83 uIU/mL 06/12/2015 Comp Metabolic Xkp678 NA 137 mEq/L 06/12/2015 Comp Metabolic Twq383 K 4.4 mEq/L 06/12/2015 Comp Metabolic Nnf817 CL 103 mEq/L 06/12/2015 Comp Metabolic Lks684 CO2 27.0 mEq/L 06/12/2015 Comp Metabolic Rkp273 ANION GAP 11 06/12/2015 Comp Metabolic Rcf429 GLUCOSE 87 mg/dL 06/12/2015 Comp Metabolic Hdk398 Creat 1.3 mg/dL 06/12/2015 Comp Metabolic Rkv165 eGFR 43 ml/min/1.73m2 06/12/2015 Comp Metabolic Nyg037 BUN 32 mg/dL 06/12/2015 Comp Metabolic Lky605 B/C Ratio 25.4 Ratio 06/12/2015 Comp Metabolic Tsm675 CALCIUM 9.5 mg/dL 06/12/2015 Comp Metabolic Ubs453 ALK PHOS 36 U/L 06/12/2015 Comp Metabolic Yol853 AST(SGOT) 16 U/L 06/12/2015 Comp Metabolic Oja709 ALT(SGPT) 17 U/L 06/12/2015 Comp Metabolic Fth048 BILI T 1.0 mg/dL 06/12/2015 Comp Metabolic Ico814 ALBUMIN 4.1 g/dL 06/12/2015 Comp Metabolic Cos222 TPRO 6.5 g/dL 06/12/2015 Comp Metabolic Ttb448 GLOB 2.5 g/dL 06/12/2015 Comp Metabolic Pvv312 A/G Ratio 1.7 Ratio 06/12/2015 Comp Metabolic Cyq640 Osmo 280 mOsmo 06/12/2015 Lipid Ord30 CHOL [...] 30.6 pg 06/12/2015 Cbc With Differential Ord2 [place]% 11.0 % 06/12/2015 Cbc With Differential Ord2 [...] 1.96 K/ul 06/12/2015 Cbc With Differential Ord2 [place] ABS# 0.9 K/ul 06/12/2015 Cbc With Differential [...] 30.3 pg 03/12/2015 Cbc With Differential Ord2 [place]% 10.7 % 03/12/2015 Cbc With Differential Ord2 [...] 2.00 K/ul 03/12/2015 Cbc With Differential Ord2 [place] ABS# 1.0 K/ul 03/12/2015 Cbc With Differential Ord2 Eos ABS# 0.1 K/ul 03/12/2015 Cbc With Differential Ord2 Baso ABS# 0.0 K/ul 03/12/2015 Cbc With Differential Ord2 New Analyzer Notice Please note new ref ranges starting 03-11-2015 due to implemntation of new five part differential hematolgy analyzer. 03/12/2015 Comp Metabolic Rsj666 NA 139 mEq/L 03/12/2015 Comp Metabolic Zta489 K 4.2 mEq/L 03/12/2015 Comp Metabolic Abp031 CL 101 mEq/L 03/12/2015 Comp Metabolic Uix455 CO2 28.0 mEq/L 03/12/2015 Comp Metabolic Rko707 ANION GAP 14 03/12/2015 Comp Metabolic Dxt192 GLUCOSE 78 mg/dL 03/12/2015 Comp Metabolic Apz472 Creat 1.1 mg/dL 03/12/2015 Comp Metabolic Sbg772 eGFR 51 ml/min/1.73m2 03/12/2015 Comp Metabolic Ugy232 BUN 17 mg/dL 03/12/2015 Comp Metabolic Ztg855 B/C Ratio 15.6 Ratio 03/12/2015 Comp Metabolic Pme952 CALCIUM 9.4 mg/dL 03/12/2015 Comp Metabolic Buz571 ALK PHOS 46 U/L 03/12/2015 Comp Metabolic Skc792 AST(SGOT) 16 U/L 03/12/2015 Comp Metabolic Oyr993 ALT(SGPT) 12 U/L 03/12/2015 Comp Metabolic Vfy213 BILI T 0.8 mg/dL 03/12/2015 Comp Metabolic Rvr003 ALBUMIN 4.1 g/dL 03/12/2015 Comp Metabolic Kqf679 TPRO 6.6 g/dL 03/12/2015 Comp Metabolic Hsw790 GLOB 2.6 g/dL 03/12/2015 Comp Metabolic Zwv509 A/G Ratio 1.6 Ratio 03/12/2015 Comp Metabolic Afe422 Osmo 278 mOsmo 03/12/2015 Lipid Ord30 CHOL [...] hTSH II 3.15 uIU/mL 12/01/2014 Comp Metabolic Apm618 NA 132 mEq/L 12/01/2014 Comp Metabolic Pdm543 K 4.4 mEq/L 12/01/2014 Comp Metabolic Dkv012 CL 99 mEq/L 12/01/2014 Comp Metabolic Jwa242 CO2 27.0 mEq/L 12/01/2014 Comp Metabolic Llx117 ANION GAP 10 12/01/2014 Comp Metabolic Pgy749 GLUCOSE 86 mg/dL 12/01/2014 Comp Metabolic Fbf905 Creat 1.2 mg/dL 12/01/2014 Comp Metabolic Myd547 eGFR 46 ml/min/1.73m2 12/01/2014 Comp Metabolic Rab019 BUN 32 mg/dL 12/01/2014 Comp Metabolic Qgl884 B/C Ratio 27.1 Ratio 12/01/2014 Comp Metabolic Mvr183 CALCIUM 9.4 mg/dL 12/01/2014 Comp Metabolic Phc091 ALK PHOS 35 U/L 12/01/2014 Comp Metabolic Mhl775 AST(SGOT) 14 U/L 12/01/2014 Comp Metabolic Etj653 ALT(SGPT) 13 U/L 12/01/2014 Comp Metabolic Vpi922 BILI T 0.8 mg/dL 12/01/2014 Comp Metabolic Bdx884 ALBUMIN 4.0 g/dL 12/01/2014 Comp Metabolic Dzx636 TPRO 6.8 g/dL 12/01/2014 Comp Metabolic Kpg633 GLOB 2.8 g/dL 12/01/2014 Comp Metabolic Aac453 A/G Ratio 1.4 Ratio 12/01/2014 Comp Metabolic Rxm096 Osmo 271 mOsmo 12/01/2014 Review of Systems [...] patch 08/29/2017 None Full Exam - General 1995 Integument inspection of skin Pigmentation: erythematous 08/29/2017 [...] contact 08/15/2016 None Full Exam - General 1995 Ears/Nose/Throat otoscopic exam Tympanic membrane: retracted 08/15/2016 [...] FLU VACC PRSV FREE INC ANTIG CPT-4: 15279 11/13/2017 ADMIN INFLUENZA VIRUS VAC CPT-4: G0008 11/13/2017 TRIAMCINOLONE ACET INJ NOS CPT-4: J3301 07/28/2017 PPPS, SUBSEQ VISIT CPT -4: G0439 02/08/2017 URINALYSIS NONAUTO W/O SCOPE CPT-4: 44274 08/15/2016 PPPS, SUBSEQ VISIT CPT -4: G0439 02/01/2016 TRIAMCINOLONE ACET INJ NOS CPT-4: J3301 12/18/2015 ADMIN INFLUENZA VIRUS VAC CPT-4: G0008 11/26/2015 FLU VACC 4 GISELA 3 YRS PLUS IM Formatting Model/CDA Sections, Assigned to/Malina Mazariegos SNOMED CT: [id number] CPT-4: 12268Aycvdbm 11/26/2015 URINALYSIS NONAUTO W/O SCOPE CPT-4: 01783 11/20/2015 URINALYSIS NONAUTO W/O SCOPE CPT-4: 48513 11/13/2015 IMMUNIZATION ADMIN CPT -4: 69102 12/01/2014 FLU VACC 4 GISELA 3 YRS PLUS IM Formatting Model/CDA Sections, Assigned to/Malina Mazariegos SNOMED CT: 22823641 CPT-4: 93132Fflwcev 12/01/2014 Vital Signs Date Vital 06/07/2018 Blood Pressure 1: 134/72 Code : 8480-6 BMI: 24.3 Code : 89676-9 Heart Rate 1 : 72 bpm Height: 5'2" SpO2: 98% Weight: 133 lbs 05/22/2018 Blood Pressure 1: 128/50 Code : 8480-6 BMI: 24.6 Code : 01620-4 Heart Rate 1 : 76 bpm Height: 5'1" SpO2: 98% Weight: 130 lbs 04/11/2018 Blood Pressure 1: 142/56 Code : 8480-6 BMI: 25.1 Code : 53332-2 Heart Rate 1 : 68 bpm Height: 5'1" SpO2: 96% Weight: 133 lbs 02/06/2018 Blood Pressure 1: 142/60 Code : 8480-6 BMI: 25.3 Code : 59196-9 Heart Rate 1 : 68 bpm Height: 5'1" SpO2: 99% Temperature: 37.0 (C) / 98.6 (F) Weight: 134 lbs 12/08/2017 Blood Pressure 1: 140/52 Code : 8480-6 BMI: 25.5 Code : 32634-0 Heart Rate 1 : 77 bpm Height: 5'1" SpO2: 96% Temperature: 36.6 (C) / 97.9 (F) Weight: 135 lbs 11/13/2017 Blood Pressure 1: 134/54 Code : 8480-6 BMI: 24.8 Code : 39455-2 Heart Rate 1 : 73 bpm Height: 5'1" SpO2: 98% Weight: 131 lbs 08/29/2017 Blood Pressure 1: 162/64 Code : 8480-6 BMI: 24.9 Code : 96873-1 Heart Rate 1 : 61 bpm Height: 5'1" SpO2: 96% Weight: 132 lbs 07/28/2017 Blood Pressure 1: 148/62 Code : 8480-6 BMI: 25.1 Code : 69815-6 Heart Rate 1 : 67 bpm Height: 5'1" SpO2: 99% Temperature: 36.4 (C) / 97.5 (F) Weight: 133 lbs 06/20/2017 Blood Pressure 1: 140/52 Code : 8480-6 BMI: 25.3 Code : 09650-6 Heart Rate 1 : 64 bpm Height: 5'1" SpO2: 98% Weight: 134 lbs 05/26/2017 Blood Pressure 1: 140/56 Code : 8480-6 BMI: 25.7 Code : 61784-1 Heart Rate 1 : 74 bpm Height: 5'1" SpO2: 95% Weight: 136 lbs 04/24/2017 Blood Pressure 1: 140/68 Code : 8480-6 BMI: 24.6 Code : 94677-0 Heart Rate 1 : 67 bpm Height: 5'1" SpO2: 97% Weight: 130 lbs 02/08/2017 Blood Pressure 1: 134/76 Code : 8480-6 BMI: 24.9 Code : 06546-5 Heart Rate 1 : 67 bpm Height: 5'1" SpO2: 98% Waist Measure (cm): 52609 cm Weight: 132 lbs 12/22/2016 Blood Pressure 1: 156/80 Code : 8480-6 BMI: 24.2 Code : 27815-8 Heart Rate 1 : 65 bpm Height: 5'1" SpO2: 98% Weight: 128 lbs 12/16/2016 Blood Pressure 1: 138/62 Code : 8480-6 BMI: 23.8 Code : 93366-8 Heart Rate 1 : 63 bpm Height: 5'1" SpO2: 98% Weight: 126 lbs 08/15/2016 Blood Pressure 1: 130/60 Code : 8480-6 BMI: 25.3 Code : 40955-3 Heart Rate 1 : 72 bpm Height: 5'1" SpO2: 95% Weight: 134 lbs 08/02/2016 Blood Pressure 1: 160/62 Code : 8480-6 BMI: 25.3 Code : 66503-0 Heart Rate 1 : 67 bpm Height: 5'1" SpO2: 97% Weight: 134 lbs 07/21/2016 Blood Pressure 1: 148/66 Code : 8480-6 BMI: 25.9 Code : 81792-3 Heart Rate 1 : 71 bpm Height: 5'1" SpO2: 97% Temperature: 36.8 (C) / 98.2 (F) Weight: 137 lbs 07/01/2016 Blood Pressure 1: 142/72 Code : 8480-6 BMI: 26.5 Code : 60729-8 Heart Rate 1 : 68 bpm Height: 5'1" SpO2: 94% Weight: 140 lbs 05/16/2016 Blood Pressure 1: 162/76 Code : 8480-6 Blood Pressure 1: 138/68 Code: 8480-6 BMI: 25.7 Code: 27312-1 Heart Rate 1: 58 bpm Height: 5'1" SpO2: 98% Weight: 136 lbs 04/06/2016 Blood Pressure 1: 162/72 Code : 8480-6 Blood Pressure 1: 138/74 Code: 8480-6 BMI: 25.7 Code: 70859-9 Heart Rate 1: 75 bpm Height: 5'1" SpO2: 97% Weight: 136 lbs 03/30/2016 Blood Pressure 1: 188/80 Code : 8480-6 BMI: 26.3 Code : 93298-1 Heart Rate 1 : 75 bpm Height: 5'1" SpO2: 98% Weight: 139 lbs 02/01/2016 Blood Pressure 1: 140/72 Code : 8480-6 BMI: 25.3 Code : 44440-8 Heart Rate 1 : 65 bpm Height: 5'1" SpO2: 97% Waist Measure (cm): 84 cm Weight: 134 lbs 01/25/2016 Blood Pressure 1: 140/74 Code : 8480-6 BMI: 25.1 Code : 68514-3 Heart Rate 1 : 66 bpm Height: 5'1" SpO2: 98% Weight: 133 lbs 12/24/2015 Blood Pressure 1: 142/66 Code : 8480-6 BMI: 24.9 Code : 82640-2 Heart Rate 1 : 54 bpm Height: 5'1" SpO2: 97% Weight: 132 lbs 12/18/2015 Blood Pressure 1: 152/62 Code : 8480-6 BMI: 25.5 Code : 23603-8 Heart Rate 1 : 66 bpm Height: 5'1" SpO2: 96% Weight: 135 lbs 12/11/2015 Blood Pressure 1: 136/54 Code : 8480-6 Heart Rate 1: 72 bpm SpO2: 98% Weight: 137 lbs 11/26/2015 Blood Pressure 1: 142/70 Code : 8480-6 BMI: 25.3 Code : 55670-2 Heart Rate 1 : 64 bpm Height: 5'1" SpO2: 97% Weight: 134 lbs 11/20/2015 Blood Pressure 1: 154/70 Code : 8480-6 Heart Rate 1: 65 bpm SpO2: 98% 10/23/2015 Blood Pressure 1: 138/62 Code : 8480-6 Heart Rate 1: 55 bpm SpO2: 98% 10/21/2015 Blood Pressure 1: 142/68 Code : 8480-6 BMI: 25.7 Code : 29388-8 Heart Rate 1 : 73 bpm Height: 5'1" SpO2: 98% Weight: 136 lbs 07/15/2015 Blood Pressure 1: 130/60 Code : 8480-6 BMI: 26.6 Code : 53309-6 Heart Rate 1 : 70 bpm Height: 5'1" SpO2: 97% Weight: 141 lbs 06/15/2015 Blood Pressure 1: 118/64 Code : 8480-6 BMI: 24.9 Code : 37148-5 Heart Rate 1 : 66 bpm Height: 5'1" SpO2: 99% Weight: 132 lbs 06/05/2015 Blood Pressure 1: 142/60 Code : 8480-6 Blood Pressure 1: 135/58 Code: 8480-6 Heart Rate 1: 64 bpm SpO2: 99% 05/19/2015 Blood Pressure 1: 146/60 Code : 8480-6 BMI: 27.1 Code : 20955-9 Heart Rate 1 : 66 bpm Height: 5'1" SpO2: 97% Weight: 143 lbs 8 oz 04/24/2015 Blood Pressure 1: 148/58 Code : 8480-6 BMI: 25.9 Code : 56326-9 Heart Rate 1 : 61 bpm Height: 5'1" SpO2: 98% Weight: 137 lbs 03/12/2015 Blood Pressure 1: 140/72 Code : 8480-6 BMI: 25.1 Code : 56598-0 Heart Rate 1 : 68 bpm Height: 5'1" SpO2: 98% Weight: 133 lbs 01/12/2015 Blood Pressure 1: 146/60 Code : 8480-6 BMI: 25.7 Code : 45594-4 Heart Rate 1 : 48 bpm Height: 5'1" SpO2: 97% Weight: 136 lbs 12/11/2014 Blood Pressure 1: 144/56 Code : 8480-6 Blood Pressure 1: 125/65 Code: 8480-6 BMI: 25.1 Code: 76110-1 Heart Rate 1: 56 bpm Height: 5'1" SpO2: 96% Weight: 133 lbs 12/01/2014 Blood Pressure 1: 136/60 Code : 8480-6 Heart Rate 1: 56 bpm SpO2: 96% Weight: 131 lbs 5 oz 08/14/2014 Blood Pressure 1: 132/72 Code : 8480-6 BMI: 25.5 Code : 80664-2 Heart Rate 1 : 73 bpm Height: [...] data Encounters Encounter Performer Location Codes Date EST. PATIENT, LEVEL III Diagnosis: Localized edema[ICD10: R60.0] [facility] CPT-4 : 74842 06/07/2018 ([id number]) 19653 EST. PATIENT, LEVEL III Diagnosis: Essential (primary) hypertension[ICD10: I10] Diagnosis: Unilateral primary osteoarthritis, left knee[ICD10: M17.12] Berenice Cohen MD , [facility] CPT-4: 11268 05/22/2018 ([id number]) 12268 EST. PATIENT, LEVEL IV Diagnosis: Essential (primary) hypertension[ICD10: I10] Diagnosis: Other abnormal glucose[ICD10: R73.09] Diagnosis: Mixed hyperlipidemia[ICD10: E78.2] Diagnosis: Vitamin D deficiency, unspecified[ICD10: E55.9] Berenice Cohen MD, [facility] CPT-4: 24930 04/11/2018 04499 EST. PATIENT, LEVEL IV Diagnosis: Other acute sinusitis[ICD10: J01.80] Diagnosis: Other allergic rhinitis[ICD10: J30.89] Evelyn Cohen MD, [facility] CPT-4: 81244 02/06/2018 [id number] EST. PATIENT, LEVEL III Diagnosis: Other allergic rhinitis[ICD10: J30.89] Diagnosis: Other acute sinusitis[ICD10: J01.80] Evelyn Cohen MD, [facility] CPT-4: 67986 12/08/2017 ([id number]) 64095 EST. PATIENT, LEVEL IV Diagnosis: Essential (primary) hypertension[ICD10: I10] Diagnosis: Chronic maxillary sinusitis[ICD10: J32.0] Diagnosis: Mixed hyperlipidemia[ICD10: E78.2] Diagnosis: Other abnormal glucose[ICD10: R73.09] Berenice Cohen MD, [facility] CPT-4: 78552 11/13/2017 ([id number]) 29507 EST. PATIENT, LEVEL III Diagnosis: Tinea corporis[ICD10: B35.4] Diagnosis: Essential (primary) hypertension[ICD10: I10] Doris Cohen MD, [facility] CPT-4: 64520 08/29/2017 ([id number]) 40739 EST. PATIENT, LEVEL III Diagnosis: Acute recurrent maxillary sinusitis[ICD10: J01.01] Diagnosis: Other allergic rhinitis[ICD10: J30.89] Doris Cohen MD, [facility] CPT-4: 37865 07/28/2017 99728 EST. PATIENT, LEVEL IV Diagnosis: Other acute sinusitis[ICD10: J01.80] Diagnosis: Other allergic rhinitis[ICD10: J30.89] Diagnosis: Otalgia, bilateral[ICD10: H92.03] Diagnosis: Pain in right knee[ICD10: M25.561] Diagnosis: Pain in left knee[ICD10: M25.562] Evelyn Cohen MD, [facility] CPT -4: 27619 06/20/2017 [id number] EST. PATIENT, LEVEL IV Diagnosis: Other acute sinusitis[ICD10: J01.80] Diagnosis: Other allergic rhinitis[ICD10: J30.89] Diagnosis: Gastro-esophageal reflux disease without esophagitis[ICD10: K21.9] Evelyn Cohen MD, [facility] CPT-4: 19955 05/26/2017 [id number] EST. PATIENT, LEVEL III Diagnosis: Essential (primary) hypertension[ICD10: I10] Evelyn Cohen MD, [facility] CPT-4: 43001 04/24/2017 ([id number]) 72884 EST. PATIENT, LEVEL IV Diagnosis: Essential (primary) hypertension[ICD10: I10] Diagnosis: Other abnormal glucose[ICD10: R73.09] Diagnosis: Mixed hyperlipidemia[ICD10: E78.2] Berenice Cohen MD, [facility] CPT-4: 96944 12/22/2016 [id number] EST. PATIENT, LEVEL IV Diagnosis: Other acute sinusitis[ICD10: J01.80] Diagnosis: Other allergic rhinitis[ICD10: J30.89] Evelyn Cohen MD, [facility] CPT-4: 35398 12/16/2016 ([id number]) 81139 EST. PATIENT, LEVEL IV Diagnosis: Essential (primary) hypertension[ICD10: I10] Diagnosis: Mixed hyperlipidemia[ICD10: E78.2] Diagnosis: Dysuria[ICD10: R30.0] Berenice Cohen MD, [facility] CPT-4: 28650 08/15/2016 [id number] EST. PATIENT, LEVEL III Diagnosis: Other acute sinusitis[ICD10: J01.80] Diagnosis: Other allergic rhinitis[ICD10: J30.89] Diagnosis: Otalgia, bilateral[ICD10: H92.03] Evelyn Cohen MD, [facility] CPT -4: 93804 08/02/2016 ([id number]) 16642 EST. PATIENT, LEVEL III Diagnosis: Acute recurrent maxillary sinusitis[ICD10: J01.01] Diagnosis: Otalgia, right ear[ICD10: H92.01] Doris Cohen MD, [facility] CPT-4: 47429 07/21/2016 [id number] EST. PATIENT, LEVEL III Diagnosis: Dysuria[ICD10: R30.0] Diagnosis: Other allergic rhinitis[ICD10: J30.89] Evelyn Cohen MD, [facility] CPT-4: 91617 07/01/2016 ([id number]) 34763 EST. PATIENT, LEVEL IV Diagnosis: Essential (primary) hypertension[ICD10: I10] Diagnosis: Mixed hyperlipidemia[ICD10: E78.2] Berenice Cohen MD, [facility] CPT-4: 97661 05/16/2016 81434 EST. PATIENT, LEVEL III Diagnosis: Mixed hyperlipidemia[ICD10: E78.2] Diagnosis: Essential (primary) hypertension[ICD10: I10] Diagnosis: Laceration without foreign body of left hand, subsequent encounter[ ICD10: S61.412D] Evelyn Cohen MD, [facility] CPT-4: 36070 04/06/2016 ([id number]) 79927 EST. PATIENT, LEVEL III Diagnosis: Essential (primary) hypertension[ICD10: I10] Berenice Cohen MD, [facility] CPT-4: 55346 03/30/2016 ([id number]) 64408 EST. 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 PATIENT, LEVEL III Diagnosis: Essential (primary) hypertension[ICD10: I10] Berenice Cohen MD, [facility] CPT-4: 26101 12/24/2015 64313 EST. PATIENT, LEVEL III Diagnosis: Other acute sinusitis[ICD10: J01.80] Diagnosis: Other allergic rhinitis[ICD10: J30.89] Evelyn Cohen MD, [facility] CPT-4: 64521 12/18/2015 ([id number]) Miscellaneous no charge Diagnosis: Essential (primary) hypertension[ICD10: I10] Evelyn Cohen MD, [facility] CPT-4: 07857 12/11/2015 ([id number]) 55742 EST. PATIENT, LEVEL IV Diagnosis: Essential (primary) hypertension[ICD10: I10] Diagnosis: Other abnormal glucose[ICD10: R73.09] Diagnosis: Encounter for immunization[ICD10: Z23] Berenice Cohen MD, [facility] CPT-4: 68805 11/26/2015 ([id number]) Miscellaneous no charge Diagnosis: Bitten by dog, initial encounter[ICD10: W54.0XXA] Evelyn Cohen MD, [facility] CPT-4: 83622 10/29/2015 ([id number]) Miscellaneous no charge Diagnosis: Essential (primary) hypertension[ICD10: I10] Diagnosis: Bitten by dog, initial encounter[ICD10: W54.0XXA] Evelyn Cohen MD, [facility] CPT-4: 64918 10/23/2015 99960 EST. PATIENT, LEVEL III Diagnosis: Cellulitis of face[ICD10: L03.211] Diagnosis: Bitten by dog, initial encounter[ICD10: W54.0XXA] Evelyn Cohen MD, [facility] CPT-4: 66628 10/21/2015 ([id number]) Miscellaneous no charge Diagnosis: Essential (primary) hypertension[ICD10: I10] Evelyn Cohen MD, [facility] CPT-4: 14251 07/15/2015 ([id number]) 94996 EST. PATIENT, LEVEL IV Diagnosis: Essential (primary) hypertension[ICD10: I10] Diagnosis: Mixed hyperlipidemia[ICD10: E78.2] Diagnosis: Dry mouth, unspecified[ICD10: R68.2] Berenice Cohen MD, [facility] CPT-4: 58693 06/15/2015 ([id number]) Miscellaneous no charge Diagnosis: Essential (primary) hypertension[ICD10: I10] Doris Cohen MD, [facility] CPT-4: 87211 06/05/2015 ([id number]) 08269 EST. PATIENT, LEVEL IV Diagnosis: Mammographic microcalcification found on diagnostic imaging of breast [ICD10: R92.0] Diagnosis: Edema, unspecified[ICD10: R60.9] Diagnosis: Essential (primary) hypertension[ICD10: I10] Berenice Cohen MD, [facility] CPT-4: 39817 05/19/2015 71621 EST. PATIENT, LEVEL IV Diagnosis: Other acute sinusitis[ICD10: J01.80] Diagnosis: Acute nasopharyngitis [common cold][ICD10: J00] Diagnosis: Other allergic rhinitis[ICD10: J30.89] Diagnosis: Localized edema[ICD10: R60.0] Diagnosis: Mixed hyperlipidemia[ICD10: E78.2] Evelyn Cohen MD, [facility] CPT-4: 49491 04/24/2015 ([id number]) 88623 EST. PATIENT, LEVEL IV Diagnosis: Essential (primary) hypertension[ICD10: I10] Diagnosis: Abscess of liver[ICD10: K75.0] Diagnosis: Anemia, unspecified[ICD10: D64.9] Berenice Cohen MD, [facility] CPT-4: 08234 03/12/2015 40380 EST. PATIENT, LEVEL IV Diagnosis: Essential (primary) hypertension[ICD10: I10] Diagnosis: Candidal stomatitis[ICD10: B37.0] Diagnosis: Pain in unspecified knee[ICD10: M25.569] Diagnosis: Edema, unspecified[ICD10: R60.9] Evelyn Cohen MD, [facility] CPT- 4: 18469 01/12/2015 ([id number]) 97538 EST. PATIENT, LEVEL III Diagnosis: Pain in right foot[ICD10: M79.671] Berenice Cohen MD, [facility] CPT-4: 30025 12/11/2014 ([id number]) 25685 EST. PATIENT, LEVEL IV Diagnosis: Abscess of liver[ICD10: K75.0] Diagnosis: Hypo-osmolality and hyponatremia[ICD10: E87.1] Diagnosis: Essential (primary) hypertension[ICD10: I10] Diagnosis: VACCIN FOR INFLUENZA[ICD10: Z23] Berenice Cohen MD, [facility] CPT-4: 56156 12/01/2014 ([id number]) OFFICE VISIT, NEW - LEVEL 4 Diagnosis: ESSENTIAL HYPERTENSION[ICD9: 401.9] Diagnosis: Chronic maxillary sinusitis[ICD9: 473.0] [facility] CPT-4: 12148 08/14/2014 Plan of Care Planned Activity Notes [...] peripheral edema. 06/07/2018 [phone] ([facility] Complex 06/07/2018 Patient Education: Patient Medication Summary Completed 06/07/2018 Appointment: Berenice Cohen WPtel: [phone] [facility] (15 min) Moderate 05/28/2018 Referral: Eduardo Suggs [...] that Marta have her surgery at [facility] so she can see her as well as any specialists if needed. RX for walker provided to help with stability and prevent falling. 05/22/2018 Appointment: [phone] [place] (30 min) Complex 05/22/2018 Patient Education: Patient Medication Summary Completed 05/22/2018 Care Plan: Referral Order SNOMED-CT : [id number] Pending 05/22/2018 Visit Plan: Hypertension - well [...] to medications. 04/11/2018 Appointment: Berenice Cohen WPtel: [phone] [facility] (15 min) Moderate 04/11/2018 Patient Education: Patient Medication Summary Completed 04/11/2018 Patient Education: Hypertension Completed 04/11/2018 Patient Education: Cholesterol Management Completed 04/11/2018 Patient Education: Patient Medication Summary Completed 03/30/2018 Care Plan: Comp Metabolic Pending 03/30/2018 Care Plan: Cbc With Differential Pending 03/30/2018 Care Plan: Tsh Pending 03/30/2018 Care Plan: Lipid Pending 03/30/2018 Appointment: Berenice Cohen WPtel: [facility]1 [facility] (15 min) Moderate 03/28/2018 Appointment: Berenice Cohen WPtel: [facility]4 [facility] (15 min) Moderate 03/19/2018 Visit Plan: Sinusitis [...] spray. 02/06/2018 Appointment: Evelyn West WPtel: [phone] [facility] (15 min) Moderate 02/06/2018 Patient Education: Patient Medication Summary Completed 02/06/2018 Patient Education: Patient Medication Summary Completed 12/29/2017 Care Plan: %Hba1C [facility] : [address]-5 Pending 12/11/2017 Visit Plan: Sinusitis - Pt [...] allergy spray. 12/08/2017 Appointment: Evelyn West WPtel: [address] [place], [place] [address] (15 min) Moderate 12/08/2017 Patient Education: Patient [...] shot today 11/13/2017 Appointment: Berenice Cohen WPtel: [phone] (15 min) Moderate 11/13/2017 Patient Education: Patient Medication Summary Completed 11/13/2017 Patient Education: Cholesterol Management Completed 11/13/2017 Visit Plan: Tinea-rx sent to patient's pharmacy and instructed on use-keep groin clean/dry -call if symptoms do not resolve or if any worse HTN-elevated today-monitor and home and call if continues to be elevated 08/29/2017 Appointment: Doris Sheffield WPtel: [phone] (15 min) Moderate 08/29/2017 Patient Education: Patient [...] any worse 07/28/2017 Appointment: Doris Sheffield WPtel: [facility]8 [address] (30 min) Complex 07/28/2017 Patient Education: Patient [...] improve. 06/20/2017 Appointment: [facility]el[phone] (15 min) Moderate 06/20/2017 Patient Education: Patient [...] the symptoms are not improving. 05/26/2017 Appointment: Evleyn West [facility]Ptel[phone] [facility] (15 min) Moderate 05/26/2017 Patient Education: Patient [...] concerns. 04/24/2017 Appointment: [facility] West [facility]Ptel[phone] (30 min) Complex 04/24/2017 Patient Education: Patient [...] care surrogate. 02/08/2017 Appointment: [facility] West [facility]Ptel[phone] [facility] - Annual Wellness Visit 02/08/2017 Patient Education: [...] vaccine today 12/22/2016 Appointment: [phone] ([facility] min) Moderate 12/22/2016 Patient Education: Patient [...] allergy spray. 12/16/2016 Appointment: Evelyn West WPtel: [phone] [facility] (30 min) Complex 12/16/2016 Patient Education: Patient Medication Summary Completed 12/16/2016 Appointment: [facility] Cohen [facility]Ptel: [phone] (15 min) Moderate 11/15/2016 Visit Plan: Hypertension [...] on carbohydrates. 08/15/2016 Appointment: Berenice Cohen WPtel: [facility] (15 min) Moderate 08/15/2016 Patient Education: Patient Medication Summary Completed 08/15/2016 Appointment: Doris Sheffield WPtel: [phone] (15 min) Moderate 08/05/2016 Visit Plan: Allergies [...] show improvement. 08/02/2016 Appointment: Evelyn West WPtel: [facility] [address] (30 min) Complex 08/02/2016 Patient Education: Patient [...] flushed 07/21/2016 Appointment: Doris Sheffield WPtel: [phone] [place] [phone] (15 min) Moderate 07/21/2016 Patient Education: Patient [...] 10mg nightly. 05/16/2016 Appointment: Berenice Cohen WPtel: [facility] (15 min) Moderate 05/16/2016 Patient Education: Patient [...] or concerns. 04/06/2016 Appointment: [facility]el[phone] (10 min) Simple 04/06/2016 Patient Education: Patient [...] twice daily. 03/30/2016 Appointment: Berenice Cohen WPtel: [phone] [facility] (15 min) Moderate 03/30/2016 Patient Education: Patient Medication Summary Completed 03/30/2016 Appointment: Berenice Cohen WPtel: [phone] [facility] (15 min) Moderate 03/24/2016 Visit Plan: Medicare [...] surrogate. 02/01/2016 Appointment: Evelyn West WPtel: [phone] [facility] [facility] - Annual Wellness Visit 02/01/2016 Patient Education: Patient Medication Summary Completed 02/01/2016 Visit Plan: Apthous ulcer - rx for acyclovir 800mg tid x7 days Sample of Voltaren gel to use on knees tid prn 01/25/2016 Appointment: Berenice Cohen WPtel: [phone] [facility] (15 min) Moderate 01/25/2016 Patient Education: Patient [...] home. 12/24/2015 Appointment: Berenice Cohen WPtel: [phone] [facility] (15 min) Moderate 12/24/2015 Patient Education: [...] improvement. 12/18/2015 Appointment: Doris Sheffield WPtel: [phone] [phone] (15 min) Moderate 12/18/2015 Patient [...] meal - 11/26/2015 Appointment: [facility]ren[facility] Cohen WPtel: [phone] (15 min) Moderate 11/26/2015 Patient Education: Patient [...] pain. 10/21/2015 Appointment: Dor[facility] Sheffield [facility]Ptel: [phone] (15 min) Moderate 10/21/2015 Patient Education: Patient [...] mouth spray 06/15/2015 Appointment: Berenice Cohen WPtel: [phone] [place] (15 min) Moderate 06/15/2015 Patient Education: Patient Medication Summary Completed 06/15/2015 Patient Education: Patient Medication Summary Completed 06/12/2015 Appointment: Berenice Cohen WPtel: [phone] [facility] [place] (15 min) Moderate 06/11/2015 Appointment: Nurse [...] the day 03/12/2015 Appointment: Berenice Cohen WPtel: [facility] (15 min) Moderate 03/12/2015 Patient Education: Patient [...] appointment with then soon. Pt to try [place] rub on the knees to help reduce [...] is sore 12/11/2014 Appointment: Berenice Cohen WPtel: [address] [place] [address] (15 min) Moderate 12/11/2014 Patient Education: Patient [...] not improving. 12/01/2014 Appointment: Berenice Cohen WPtel: [address] [place], [place] [phone] (15 min) Moderate 12/01/2014 Patient Education: Patient Medication Summary Completed 12/01/2014 Patient Education: Hypertension Completed 12/01/2014 Appointment: Berenice Cohen WPtel: [address] [place], [place] [phone] (15 min) Moderate 09/15/2014 Visit Plan: [...] not improve. 08/14/2014 Appointment: Berenice Cohen WPtel: [facility] [place] ([place] New Patient 08/14/2014 Patient Education: [...] cut back on carbohydrates. prevnar vaccine today DECREASE THE AMLODIPINE TO 1 PILL DAILY. [...] today for the mammogram in [address] SUGGS FOR CARDIAC CLEARANCE [...] that Marta have her surgery at [facility] so she can see her as well as any specialists if needed. RX for walker provided to help with stability and prevent falling. try [place] on your knee. Decrease Salt in diet. [...] appointment with then soon. Pt to try [place] rub on the knees to help reduce [...] side effects or allergic type reactions. . Hypertension - continue with current medications, [...] notify clinic with any questions or concerns. we will repeat your blood glucose check [...] Elevated glucose - cut back on carbohydrates. start nexium over the counter for a [...] office if the symptoms are not improving. we will repeat your blood glucose check [...] Elevated glucose - cut back on carbohydrates. No fracture of foot - recommended pt to use aspercreme to the foot where it is sore [employer] will contact you for a colon screen test - it is a colon cancer screening that you will do at home and send in to the chuck [facility] cook. . No fracture of foot - recommended pt to use aspercreme to the foot where it is sore biotin sweet oil to right ear and [...] do not resolve or if any worse change the amlodipine to one pill twice [...] and mouth spray prn during the day . Hypertension - well controlled - continue [...] if symptoms of mouth discomfort not improving. . Hypertension - uncontrolled - the patient's [...] is to call for acute concerns. . Sinusitis - Pt has acute infection [...] pain is worsening or does not improve. Start srinivasa daily increase fluids, vitamin C [...] assure normal liver response to medications. . Cellulitis - The patient was instructed in appropriate wound care. The patient was instructed to use the antibiotic ointment as per RX. The patient is to call for any change in symptoms, increase in size of the lesion, increase in pain. . Apthous ulcer - rx for acyclovir 800mg tid x7 days Sample of Voltaren gel to use on knees tid prn . Allergies - chronic - recommended pt [...] or with any questions or concerns. . Sinusitis - Pt has acute infection [...] in the nasal steroid allergy spray. . Hypertension - well controlled - continue [...] liver response to medications. flu shot today increase the amlodipine to 10mg daily - [...] assure normal liver response to medications. . Medicare Exam - today we discussed [...] DOPA paperwork for health care surrogate. . Sinusitis - Pt has acute infection [...] in the nasal steroid allergy spray. . Hypertension - well controlled - continue with current medications, continue with no added salt diet. Pt has been encouraged to exercise daily. The pt has been advised to call the office if there are any acute concerns about change in blood pressure readings at home. Vary the times that you are checking [...] TWO hours after a meal - . Tinea-rx sent to patient's pharmacy and [...] spray in the nasal steroid allergy spray. co-enzyme Q10 - Qunol - take daily [...]
--- OUTSIDE RECORDS SUMMARY | 2018-06-30 14:04 | XMS REPORT | CCD ---
Author Author Berenice Cohen Organization Berenice Cohen MD, [facility] Address [address] [place] [address] Phone Care Team Providers Care Substance Abuse Rn Name Role Phone PP Unavailable CCM Unavailable Summary Purpose Interface Exchange Insurance Providers Payer name Policy type / Coverage type Covered libertarian ID Effective Begin Date Effective End Date [employer] [id number] Unknown Unknown Family history Son Diagnosis Age [...] Unknown Retired 08/14/[address]: 429187870 Never smoker 08/14/[address]: 045328716 Never drinks alcohol 08/14/2014 Allergies, Adverse Reactions, Alerts Substance Reaction Codes Entered Date Inactivated Date Status AUGMENTIN hives, RxNorm: 750480 08/14/2014 No Inactive Date Active [id number] REDUCTASE INHIBITORS myalgias, Unknown 2015 No Inactive [...] Fill Instructions Lasix 40 mg tablet RxNorm: 301554 1 Tablet(s) PO daily 201806/09/2018 Active potassium chloride ER 20 mEq tablet,extended release RxNorm: 683743 1 Tablet(s) PO daily 06/07/2018 06/09/2018 Active Voltaren 1 % topical gel RxNorm: 429331 1 Application TOP QID as needed 06/04/2018 No Stop Date Active Carafate 1 gram tablet RxNorm: 797953 1 Tablet(s) PO QID as needed 05/25/2018 06/03/2018 Inactive Carafate 1 gram tablet RxNorm: 052760 1 Tablet(s) PO QID as needed 05/25/2018 05/24/2018 Inactive Zithromax Z-Dylan 250 mg tablet RxNorm: 833974 1 Tablet(s) PO UD 05/02/2018 06/03/2018 Inactive glipizide 5 mg tablet RxNorm: 346878 1 Tablet(s) PO BID 201808/15/2018 Active glipizide 5 mg tablet RxNorm: 447532 1 Tablet(s) PO BID 201804/17/2018 Inactive Xanax 0.25 mg tablet RxNorm: 405724 1 Tablet(s) PO TID as needed anxiety 04/11/2018 06/09/2018 Active Zithromax Z-Dylan 250 mg tablet RxNorm: 363633 1 Tablet(s) PO UD 02/06/2018 04/17/2018 Inactive Zyrtec 10 mg tablet RxNorm: 6623926 1 Tablet(s) PO daily 12/0801/06/2018 Inactive Zithromax Z-Dylan 250 mg tablet RxNorm: 867141 1 Tablet(s) PO UD 12/08/2017 02/05/2018 Inactive Lipitor 10 mg tablet RxNorm: 594467 1 Tablet(s) PO QHS 201706/21/2018 Active Lipitor 10 mg tablet RxNorm: 107902 TAKE 1 TABLET BY MOUTH EVERY DAY AT BEDTIME 11/24/2017 No Stop Date Active lisinopril 10 mg tablet RxNorm: 130196 1 Tablet(s) PO daily 08/17/2018 Active prednisone 20 mg tablet RxNorm: 965395 2 Tablet(s) PO daily 11/17/2017 Inactive Keflex 500 mg capsule RxNorm: 649996 1 Capsule(s) PO TID and take a probiotic BID x7days 11/07/2017 11/13/2017 Inactive take with probiotic BID amlodipine 5 mg tablet RxNorm: 210967 1 Tablet(s) PO daily 10/06/2018 Active cefdinir 300 mg capsule RxNorm: 411498 1 Capsule(s) PO BID 09/23/2017 Inactive cefdinir 300 mg capsule RxNorm: 591974 1 Capsule(s) PO BID started by Dr. Davila 09/14/2017 09/13/2017 Inactive betamethasone dipropionate 0.05 % topical cream RxNorm: 013499 1 Application TOP BID 08/29/2017 10/09/2017 Inactive mix with clotrimazole and apply to affected area clotrimazole 1 % topical cream RxNorm: 136161 1 Application TOP BID 08/29/2017 10/09/2017 Inactive mix with betamethasone and apply to affected area nystatin 100,000 unit/mL oral suspension RxNorm: 562238 5 Milliliter(s) PO QID 08/29/2017 09/17/2017 Inactive lisinopril 10 mg tablet RxNorm: 873526 1 Tablet(s) PO daily 11/14/2017 Inactive Kenalog 40 mg/mL suspension for injection RxNorm: 9009239 1 Milliliter(s) Inj 07/28/2017 07/28/2017 Inactive nystatin 100,000 unit/mL oral suspension RxNorm: 345177 5 Milliliter(s) PO QID 07/28/2017 08/06/2017 Inactive Keflex 500 mg capsule RxNorm: 431860 1 Capsule(s) PO TID 201708/03/2017 Inactive Flonase Allergy Relief 50 mcg/actuation nasal spray, suspension RxNorm: 9196761 USE ONE SPRAY(S) IN EACH NOSTRIL TWICE DAILY 07/25/2017 No Stop Date Active meclizine 25 mg tablet RxNorm: 607576 TAKE ONE TABLET BY MOUTH THREE TIMES DAILY NEEDED 07/25/2017 No Stop Date Active Voltaren 1 % topical gel RxNorm: 665259 1 Application TOP QID as needed 06/20/2017 06/03/2018 Inactive Zithromax Z-Dylan 250 mg tablet RxNorm: 253169 1 Tablet(s) PO UD 06/20/2017 07/27/2017 Inactive z pack as directed Keflex 500 mg capsule RxNorm: 459879 1 Capsule(s) PO TID 201706/01/2017 Inactive Zithromax Z-Dylan 250 mg tablet RxNorm: 325560 1 Tablet(s) PO UD 04/27/2017 06/19/2017 Inactive z pack as directed lisinopril 10 mg tablet RxNorm: 016541 1 Tablet(s) PO daily 07/22/2017 Inactive Lipitor 10 mg tablet RxNorm: 563990 1 Tablet(s) PO QHS 201711/06/2017 Inactive Zithromax Z-Dylan 250 mg tablet RxNorm: 995015 1 Tablet(s) PO UD 02/15/2017 04/26/2017 Inactive z pack as directed meclizine 25 mg tablet RxNorm: 819322 TAKE ONE TABLET BY MOUTH THREE TIMES DAILY NEEDED 01/23/2017 07/24/2017 Inactive Zithromax Z-Dylan 250 mg tablet RxNorm: 540760 1 Tablet(s) PO UD 01/05/2017 02/14/2017 Inactive z pack as directed losartan 50 mg tablet RxNorm: 899251 1 Tablet(s) PO daily 201604/10/2017 Inactive amlodipine 5 mg tablet RxNorm: 271137 1 Tablet(s) PO daily 10/11/2017 Inactive Zithromax Z-Dylan 250 mg tablet RxNorm: 683787 1 Tablet(s) PO UD 12/16/2016 01/04/2017 Inactive z pack as directed Zyrtec 10 mg tablet RxNorm: 0598670 1 Tablet(s) PO daily 12/1601/14/2017 Inactive Lipitor 10 mg tablet RxNorm: 300980 1 Tablet(s) PO QHS 201602/22/2017 Inactive Zithromax Z-Dylan 250 mg tablet RxNorm: 372290 1 Tablet(s) PO UD 09/27/2016 12/15/2016 Inactive z pack as directed Lipitor 10 mg tablet RxNorm: 615551 1 Tablet(s) PO QHS 201610/25/2016 Inactive guaifenesin 400 mg tablet RxNorm: 707358 1 Tablet(s) PO BID as needed 08/04/2016 No Stop Date Active cefdinir 300 mg capsule RxNorm: 948355 1 Capsule(s) PO BID started by Dr. Davila 08/04/2016 08/13/2016 Inactive amlodipine 10 mg tablet RxNorm: 525771 1 Tablet(s) PO daily 07/201612/21/2016 Inactive Keflex 500 mg capsule RxNorm: 703263 1 Capsule(s) PO TID 201607/27/2016 Inactive Zyrtec 10 mg tablet RxNorm: 5666115 1 Tablet(s) PO daily 07/0107/30/2016 Inactive Xanax 0.25 mg tablet RxNorm: 123669 1 Tablet(s) PO TID as needed anxiety 07/01/2016 08/27/2016 Inactive amlodipine 5 mg tablet RxNorm: 654734 1 Tablet(s) PO daily 06/201607/30/2016 Inactive Keflex 500 mg capsule RxNorm: 829956 1 Capsule(s) PO TID 201607/03/2016 Inactive Keflex 500 mg capsule RxNorm: 509370 1 Capsule(s) PO TID 201606/23/2016 Inactive Keflex 500 mg capsule RxNorm: 029675 1 Capsule(s) PO TID 201606/30/2016 Inactive Flonase Allergy Relief 50 mcg/actuation nasal spray, suspension RxNorm: 7960946 USE ONE SPRAY(S) IN EACH NOSTRIL TWICE DAILY 06/20/2016 05/15/2017 Inactive amlodipine 10 mg tablet RxNorm: 825705 1 Tablet(s) PO daily 04/201606/28/2016 Inactive Lipitor 10 mg tablet RxNorm: 699326 1 Tablet(s) PO QHS 201608/14/2016 Inactive Flonase Allergy Relief 50 mcg/actuation nasal spray, suspension RxNorm: 7073291 USE ONE SPRAY(S) IN EACH NOSTRIL TWICE DAILY 04/18/2016 05/17/2016 Inactive cephalexin 500 mg capsule RxNorm: 274816 1 Capsule(s) PO TID 04/05/2016 Inactive take with probiotics BID amlodipine 10 mg tablet RxNorm: 841087 1 Tablet(s) PO daily 02/201605/29/2016 Inactive Bactroban 2 % topical cream RxNorm: 066975 1 Application TOP BID 03/30/2016 04/08/2016 Inactive Zithromax Z-Dylan 250 mg tablet RxNorm: 603316 1 Tablet(s) PO UD 03/10/2016 05/15/2016 Inactive z pack as directed Keflex 500 mg capsule RxNorm: 169593 1 Capsule(s) PO TID 201502/25/2016 Inactive take with probiotics BID acyclovir 800 mg tablet RxNorm: 082555 1 Tablet(s) PO TID 01/2402/21/2016 Inactive Zithromax Z-Dylan 250 mg tablet RxNorm: 525791 1 Tablet(s) PO UD 01/19/2016 01/24/2016 Inactive z pack Flonase Allergy Relief 50 mcg/actuation nasal spray, suspension RxNorm: 7767320 USE ONE SPRAY(S) IN EACH NOSTRIL TWICE DAILY 12/28/2015 02/25/2016 Inactive Kenalog 40 mg/mL suspension for injection RxNorm: 0192571 Milliliter(s) Inj 12/18/2015 12/18/2015 Inactive Keflex 500 mg capsule RxNorm: 480744 1 Capsule(s) PO TID 201512/24/2015 Inactive Zithromax Z-Dylan 250 mg tablet RxNorm: 369634 1 Tablet(s) PO UD 12/09/2015 12/23/2015 Inactive z pack meclizine 25 mg tablet RxNorm: 885655 1 Tablet(s) PO TID as needed 12/09/2015 12/08/2015 Inactive meclizine 25 mg tablet RxNorm: 375205 1 Tablet(s) PO TID as needed 12/09/2015 02/26/2016 Inactive Keflex 500 mg capsule RxNorm: 860471 1 Capsule(s) PO TID 201511/22/2015 Inactive Cipro 500 mg tablet RxNorm: 628737 1 Tablet(s) PO BID 201511/13/2015 Inactive Keflex 500 mg capsule RxNorm: 931546 1 Capsule(s) PO TID 201510/30/2015 Inactive Xanax 0.25 mg tablet RxNorm: 541046 1 Tablet(s) PO TID as needed anxiety 09/18/2015 11/13/2015 Inactive Keflex 500 mg capsule RxNorm: 016363 1 Capsule(s) PO TID 201508/19/2015 Inactive losartan 50 mg tablet RxNorm: 825953 1 Tablet(s) PO daily 201507/07/2015 Inactive Pepcid 20 mg tablet RxNorm: 663609 1 Tablet(s) PO BID 201507/07/2015 Inactive Pepcid 20 mg tablet RxNorm: 646028 1 Tablet(s) PO BID 201501/31/2016 Inactive losartan 50 mg tablet RxNorm: 631210 1 Tablet(s) PO daily 201501/31/2016 Inactive prednisone 20 mg tablet RxNorm: 681934 2 Tablet(s) PO daily 06/22/2015 Inactive prednisone 20 mg tablet RxNorm: 823389 2 Tablet(s) PO daily 12/23/2015 Inactive Diflucan 100 mg tablet RxNorm: 130097 TAKE ONE TABLET BY MOUTH ONCE DAILY 06/12/2015 12/23/2015 Inactive Zithromax Z-Dylan 250 mg tablet RxNorm: 086955 1 Tablet(s) PO UD 06/05/2015 07/06/2015 Inactive z pack amlodipine 5 mg tablet RxNorm: 426323 1 Tablet(s) PO daily 03/29/2016 Inactive Zetia 10 mg tablet RxNorm: 843299 1 Tablet(s) PO daily 201506/14/2015 Inactive valsartan 160 mg tablet RxNorm: 009339 1 Tablet(s) PO daily 07/07/2015 Inactive Lipitor 10 mg tablet RxNorm: 797339 1 Tablet(s) PO QHS 201505/18/2015 Inactive Lipitor 10 mg tablet RxNorm: 747055 1 Tablet(s) PO QHS 201504/27/2015 Inactive Zithromax 250 mg tablet RxNorm: 844900 Tablet(s) PO UD 201504/28/2015 Inactive Keflex 500 mg capsule RxNorm: 753505 1 Capsule(s) PO TID 201503/22/2015 Inactive Keflex 500 mg capsule RxNorm: 576017 1 Capsule(s) PO TID 201504/01/2015 Inactive Xanax 0.25 mg tablet RxNorm: 228453 1 Tablet(s) PO TID as needed anxiety 03/12/2015 07/04/2016 Inactive carvedilol 25 mg tablet RxNorm: 097393 1 Tablet(s) PO BID 03/1201/31/2016 Inactive amlodipine 5 mg tablet RxNorm: 967952 1 Tablet(s) PO BID 201505/18/2015 Inactive Diflucan 100 mg tablet RxNorm: 298097 1 Tablet(s) PO daily 03/21/2015 Inactive Diflucan 100 mg tablet RxNorm: 717572 1 Tablet(s) PO daily 02/14/2015 Inactive Diflucan 100 mg tablet RxNorm: 153695 1 Tablet(s) PO daily 06/201401/05/2015 Inactive Diflucan 100 mg tablet RxNorm: 260959 1 Tablet(s) PO daily 06/201412/31/2014 Inactive nystatin 100,000 unit/mL oral suspension RxNorm: 923735 5 Milliliter(s) PO QID 12/24/2014 06/14/2015 Inactive nystatin 100,000 unit/mL oral suspension RxNorm: 522861 5 Milliliter(s) PO QID 12/24/2014 12/23/2014 Inactive Zithromax 250 mg tablet RxNorm: 893498 1 Tablet(s) PO daily 12/19/2014 Inactive Zithromax 250 mg tablet RxNorm: 260319 1 Tablet(s) PO daily 12/14/2014 Inactive Flonase Allergy Relief 50 mcg/actuation nasal spray, suspension RxNorm: 1 [place] NASAL BID 12/11/2014 12/10/2014 Inactive Flonase Allergy Relief 50 mcg/actuation nasal spray, suspension RxNorm: 8174865 1 [place] NASAL BID 12/11/20142015 Inactive amlodipine 5 mg tablet RxNorm: 088158 2 Tablet(s) PO daily 11/13/2014 Inactive amlodipine 5 mg tablet RxNorm: 147111 2 Tablet(s) PO daily 03/11/2015 Inactive Lotrisone 1 %-0.05 % topical cream RxNorm: 645377 1 TOP BID until healed 10/17/2014 10/30/2014 Inactive Lotrisone 1 %-0.05 % topical cream RxNorm: 051490 1 TOP BID until healed 10/16/2014 10/16/2014 Inactive Lotrisone 1 %-0.05 % topical cream RxNorm: 168581 1 TOP BID until healed 10/06/2014 10/15/2014 Inactive Keflex 500 mg capsule RxNorm: 496923 1 Capsule(s) PO TID 201408/11/2014 Inactive Keflex 500 mg capsule RxNorm: 554862 1 Capsule(s) PO TID 201408/18/2014 Inactive clotrimazole 1 % topical solution RxNorm: 791478 1 Drop(s) TOP BID No Start Date Active Vitamin D3 5,000 unit tablet RxNorm: 991749 1 Tablet(s) PO daily No Start Date Active guaifenesin 400 mg tablet RxNorm: 857428 1 Tablet(s) PO BID as needed No Start Date 08/03/2016 Inactive Lotrisone 1 %-0.05 % topical cream RxNorm: 892911 1 TOP BID until healed No Start Date 10/05/2014 Inactive lisinopril 40 mg tablet RxNorm: 358724 1 Tablet(s) PO daily No Start Date 05/18/2015 Inactive amlodipine 5 mg tablet RxNorm: 325850 1 Tablet(s) PO daily No Start Date 11/13/2014 Inactive indapamide 1.25 mg tablet RxNorm: 799146 1 Tablet(s) PO daily No Start Date 01/31/2016 Inactive aspirin 81 mg tablet RxNorm: 280718 1 Tablet(s) PO daily No Start Date 02/07/2017 Inactive Medication Administered Medication Codes Instructions Start Date Status Kenalog 40 mg/mL suspension for injection RxNorm: 2933006 1Milliliter 07/28/2017 No longer Active Kenalog 40 mg/mL suspension for injection RxNorm: 4107129 Milliliter 12/18/2015 No longer Active Immunizations Vaccine [...] 30.8 pg 04/11/2018 Cbc With Differential Ord2 [place]% 13.0 % 04/11/2018 Cbc With Differential Ord2 [...] 3.09 K/ul 04/11/2018 Cbc With Differential Ord2 [place] ABS# 1.2 K/ul 04/11/2018 Cbc With Differential Ord2 Eos ABS# 0.2 K/ul 04/11/2018 Cbc With Differential Ord2 Baso ABS# 0.1 K/ul 04/11/2018 Tsh Ord6 TSH (3rd IS) 2.85 uIU/mL 04/11/2018 %Hba1C Kot121 % HbA1c 80156-6 7.1 % 04/11/2018 %Hba1C Prl425 Gluc Ave 157 mg/dL 04/11/2018 Lipid Ord30 CHOL 150 mg/dL 04/11/2018 Lipid Ord30 HDL 38.0 mg/dl 04/11/2018 Lipid Ord30 TRIG 203 mg/dL 04/11/2018 Lipid Ord30 LDL 71 mg/dL 04/11/2018 Lipid Ord30 C/HDL 3.9 Ratio 04/11/2018 Vitamin D 25 Oh Ddm1800 VITAMIN D, 25 HYDROXY 48.86 ng/mL Comp Metabolic Wii520 NA 138 mEq/L 04/11/2018 Comp Metabolic Nec307 K 4.4 mEq/L 04/11/2018 Comp Metabolic Yzd864 CL 101 mEq/L 04/11/2018 Comp Metabolic Fut174 CO2 29.0 mEq/L 04/11/2018 Comp Metabolic Bvq062 ANION GAP 12 04/11/2018 Comp Metabolic Xql128 GLUCOSE 120 mg/dL 04/11/2018 Comp Metabolic Fjp292 Creat 1.2 mg/dL 04/11/2018 Comp Metabolic Kll718 eGFR 47 ml/min/1.73m2 04/11/2018 Comp Metabolic Mee284 BUN 23 mg/dL 04/11/2018 Comp Metabolic Xhn316 B/C Ratio 19.7 Ratio 04/11/2018 Comp Metabolic Sha998 CALCIUM 10.3 mg/dL 04/11/2018 Comp Metabolic Nzh089 ALK PHOS 40 U/L 04/11/2018 Comp Metabolic Ufj039 AST(SGOT) 15 U/L 04/11/2018 Comp Metabolic Fxa832 ALT(SGPT) 9 U/L 04/11/2018 Comp Metabolic Fvz134 BILI T 1.0 mg/dL 04/11/2018 Comp Metabolic Axp895 ALBUMIN 4.3 g/dL 04/11/2018 Comp Metabolic Sco177 TPRO 6.8 g/dL 04/11/2018 Comp Metabolic Dym529 GLOB 2.5 g/dL 04/11/2018 Comp Metabolic Mgw912 A/G Ratio 1.7 Ratio 04/11/2018 Comp Metabolic Eaj305 Osmo 281 mOsmo 04/11/2018 %Hba1C Euk884 % HbA1c 13339-0 6.5 % 12/01/2016 %Hba1C Chr316 Gluc Ave 140 mg/dL 12/01/2016 Lipid Ord30 [...] 31.3 pg 04/12/2016 Cbc With Differential Ord2 [place]% 13.3 % 04/12/2016 Cbc With Differential Ord2 [...] 2.85 K/ul 04/12/2016 Cbc With Differential Ord2 [place] ABS# 1.1 K/ul 04/12/2016 Cbc With Differential Ord2 Eos ABS# 0.1 K/ul 04/12/2016 Cbc With Differential Ord2 Baso ABS# 0.0 K/ul 04/12/2016 Comp Metabolic Nux041 NA 129 mEq/L 04/12/2016 Comp Metabolic Sfb829 K 4.0 mEq/L 04/12/2016 Comp Metabolic Wxg733 CL 93 mEq/L 04/12/2016 Comp Metabolic Fpb986 CO2 29.0 mEq/L 04/12/2016 Comp Metabolic Lfv465 ANION GAP 11 04/12/2016 Comp Metabolic Iij980 GLUCOSE 100 mg/dL 04/12/2016 Comp Metabolic Wrt580 Creat 1.0 mg/dL 04/12/2016 Comp Metabolic Ept826 eGFR 55 ml/min/1.73m2 04/12/2016 Comp Metabolic Mqf267 BUN 19 mg/dL 04/12/2016 Comp Metabolic Pko847 B/C Ratio 18.8 Ratio 04/12/2016 Comp Metabolic Uxl484 CALCIUM 9.3 mg/dL 04/12/2016 Comp Metabolic Rot190 ALK PHOS 38 U/L 04/12/2016 Comp Metabolic Axn053 AST(SGOT) 17 U/L 04/12/2016 Comp Metabolic Txu869 ALT(SGPT) 11 U/L 04/12/2016 Comp Metabolic Taq535 BILI T 1.0 mg/dL 04/12/2016 Comp Metabolic Vaz669 ALBUMIN 4.2 g/dL 04/12/2016 Comp Metabolic Mle713 TPRO 6.6 g/dL 04/12/2016 Comp Metabolic Srv759 GLOB 2.4 g/dL 04/12/2016 Comp Metabolic Oqk044 A/G Ratio 1.8 Ratio 04/12/2016 Comp Metabolic Mjv996 Osmo 261 mOsmo 04/12/2016 Lipid Ord30 CHOL 265 mg/dL 04/12/2016 Lipid Ord30 HDL 42.0 mg/dl 04/12/2016 Lipid Ord30 TRIG 246 mg/dL 04/12/2016 Lipid Ord30 LDL 174 mg/dL 04/12/2016 Lipid Ord30 C/HDL 6.3 Ratio 04/12/2016 Tsh Ord6 hTSH II 2.49 uIU/mL 04/12/2016 Tsh Ord6 hTSH II 1.83 uIU/mL 06/12/2015 Comp Metabolic Tlh110 NA 137 mEq/L 06/12/2015 Comp Metabolic Gmw317 K 4.4 mEq/L 06/12/2015 Comp Metabolic Fmf000 CL 103 mEq/L 06/12/2015 Comp Metabolic Evu520 CO2 27.0 mEq/L 06/12/2015 Comp Metabolic Mfs590 ANION GAP 11 06/12/2015 Comp Metabolic Ula699 GLUCOSE 87 mg/dL 06/12/2015 Comp Metabolic Lvq147 Creat 1.3 mg/dL 06/12/2015 Comp Metabolic Ujo757 eGFR 43 ml/min/1.73m2 06/12/2015 Comp Metabolic Ndo150 BUN 32 mg/dL 06/12/2015 Comp Metabolic Hmp319 B/C Ratio 25.4 Ratio 06/12/2015 Comp Metabolic Cap742 CALCIUM 9.5 mg/dL 06/12/2015 Comp Metabolic Lna207 ALK PHOS 36 U/L 06/12/2015 Comp Metabolic Snv081 AST(SGOT) 16 U/L 06/12/2015 Comp Metabolic Shq120 ALT(SGPT) 17 U/L 06/12/2015 Comp Metabolic Ltb856 BILI T 1.0 mg/dL 06/12/2015 Comp Metabolic Qda206 ALBUMIN 4.1 g/dL 06/12/2015 Comp Metabolic Hva114 TPRO 6.5 g/dL 06/12/2015 Comp Metabolic Ogi433 GLOB 2.5 g/dL 06/12/2015 Comp Metabolic Yqh759 A/G Ratio 1.7 Ratio 06/12/2015 Comp Metabolic Yfr252 Osmo 280 mOsmo 06/12/2015 Lipid Ord30 CHOL [...] 30.6 pg 06/12/2015 Cbc With Differential Ord2 [place]% 11.0 % 06/12/2015 Cbc With Differential Ord2 [...] 1.96 K/ul 06/12/2015 Cbc With Differential Ord2 [place] ABS# 0.9 K/ul 06/12/2015 Cbc With Differential [...] 30.3 pg 03/12/2015 Cbc With Differential Ord2 [place]% 10.7 % 03/12/2015 Cbc With Differential Ord2 [...] 2.00 K/ul 03/12/2015 Cbc With Differential Ord2 [place] ABS# 1.0 K/ul 03/12/2015 Cbc With Differential Ord2 Eos ABS# 0.1 K/ul 03/12/2015 Cbc With Differential Ord2 Baso ABS# 0.0 K/ul 03/12/2015 Cbc With Differential Ord2 New Analyzer Notice Please note new ref ranges starting 03-11-2015 due to implemntation of new five part differential hematolgy analyzer. 03/12/2015 Comp Metabolic Fwp881 NA 139 mEq/L 03/12/2015 Comp Metabolic Qcw135 K 4.2 mEq/L 03/12/2015 Comp Metabolic Cjp918 CL 101 mEq/L 03/12/2015 Comp Metabolic Taf872 CO2 28.0 mEq/L 03/12/2015 Comp Metabolic Esh706 ANION GAP 14 03/12/2015 Comp Metabolic Byn170 GLUCOSE 78 mg/dL 03/12/2015 Comp Metabolic Ytx324 Creat 1.1 mg/dL 03/12/2015 Comp Metabolic Jxy616 eGFR 51 ml/min/1.73m2 03/12/2015 Comp Metabolic Lrr149 BUN 17 mg/dL 03/12/2015 Comp Metabolic Mgz956 B/C Ratio 15.6 Ratio 03/12/2015 Comp Metabolic Crz366 CALCIUM 9.4 mg/dL 03/12/2015 Comp Metabolic Dkq238 ALK PHOS 46 U/L 03/12/2015 Comp Metabolic Tqc549 AST(SGOT) 16 U/L 03/12/2015 Comp Metabolic Grn220 ALT(SGPT) 12 U/L 03/12/2015 Comp Metabolic Pjw057 BILI T 0.8 mg/dL 03/12/2015 Comp Metabolic Haq986 ALBUMIN 4.1 g/dL 03/12/2015 Comp Metabolic Fnq436 TPRO 6.6 g/dL 03/12/2015 Comp Metabolic Aon816 GLOB 2.6 g/dL 03/12/2015 Comp Metabolic Mvv399 A/G Ratio 1.6 Ratio 03/12/2015 Comp Metabolic Dhu562 Osmo 278 mOsmo 03/12/2015 Lipid Ord30 CHOL [...] hTSH II 3.15 uIU/mL 12/01/2014 Comp Metabolic Iyo917 NA 132 mEq/L 12/01/2014 Comp Metabolic Suj257 K 4.4 mEq/L 12/01/2014 Comp Metabolic Zvr719 CL 99 mEq/L 12/01/2014 Comp Metabolic Oxw961 CO2 27.0 mEq/L 12/01/2014 Comp Metabolic Zct219 ANION GAP 10 12/01/2014 Comp Metabolic Zpl724 GLUCOSE 86 mg/dL 12/01/2014 Comp Metabolic Kab409 Creat 1.2 mg/dL 12/01/2014 Comp Metabolic Pac632 eGFR 46 ml/min/1.73m2 12/01/2014 Comp Metabolic Asr647 BUN 32 mg/dL 12/01/2014 Comp Metabolic Yet965 B/C Ratio 27.1 Ratio 12/01/2014 Comp Metabolic Wlz905 CALCIUM 9.4 mg/dL 12/01/2014 Comp Metabolic Nvr397 ALK PHOS 35 U/L 12/01/2014 Comp Metabolic Znd480 AST(SGOT) 14 U/L 12/01/2014 Comp Metabolic Zxr761 ALT(SGPT) 13 U/L 12/01/2014 Comp Metabolic Brl796 BILI T 0.8 mg/dL 12/01/2014 Comp Metabolic Msf718 ALBUMIN 4.0 g/dL 12/01/2014 Comp Metabolic Fxh779 TPRO 6.8 g/dL 12/01/2014 Comp Metabolic Fnv986 GLOB 2.8 g/dL 12/01/2014 Comp Metabolic Vqc959 A/G Ratio 1.4 Ratio 12/01/2014 Comp Metabolic Vrr621 Osmo 271 mOsmo 12/01/2014 Review of Systems [...] FLU VACC PRSV FREE INC ANTIG CPT-4: 21003 11/13/2017 ADMIN INFLUENZA VIRUS VAC CPT-4: G0008 11/13/2017 TRIAMCINOLONE ACET INJ NOS CPT-4: J3301 07/28/2017 PPPS, SUBSEQ VISIT CPT -4: G0439 02/08/2017 URINALYSIS NONAUTO W/O SCOPE CPT-4: 18597 08/15/2016 PPPS, SUBSEQ VISIT CPT -4: G0439 02/01/2016 TRIAMCINOLONE ACET INJ NOS CPT-4: J3301 12/18/2015 ADMIN INFLUENZA VIRUS VAC CPT-4: G0008 11/26/2015 FLU VACC 4 GISELA 3 YRS PLUS IM Formatting Model/CDA Sections, Assigned to/Malina Mazariegos SNOMED CT: [id number] CPT-4: 07930Gakcckg 11/26/2015 URINALYSIS NONAUTO W/O SCOPE CPT-4: 45653 11/20/2015 URINALYSIS NONAUTO W/O SCOPE CPT-4: 71107 11/13/2015 IMMUNIZATION ADMIN CPT -4: 25674 12/01/2014 FLU VACC 4 GISELA 3 YRS PLUS IM Formatting Model/CDA Sections, Assigned to/Malina Mazarigeos SNOMED CT: [id number] CPT-4: 41833Aiwkpgb 12/01/2014 Vital Signs Date Vital 06/07/2018 Blood Pressure 1: 134/72 Code : 8480-6 BMI: 24.3 Code : 44892-0 Heart Rate 1 : 72 bpm Height: 5'2" SpO2: 98% Weight: 133 lbs 05/22/2018 Blood Pressure 1: 128/50 Code : 8480-6 BMI: 24.6 Code : 94850-0 Heart Rate 1 : 76 bpm Height: 5'1" SpO2: 98% Weight: 130 lbs 04/11/2018 Blood Pressure 1: 142/56 Code : 8480-6 BMI: 25.1 Code : 55713-5 Heart Rate 1 : 68 bpm Height: 5'1" SpO2: 96% Weight: 133 lbs 02/06/2018 Blood Pressure 1: 142/60 Code : 8480-6 BMI: 25.3 Code : 58537-8 Heart Rate 1 : 68 bpm Height: 5'1" SpO2: 99% Temperature: 37.0 (C) / 98.6 (F) Weight: 134 lbs 12/08/2017 Blood Pressure 1: 140/52 Code : 8480-6 BMI: 25.5 Code : 91059-9 Heart Rate 1 : 77 bpm Height: 5'1" SpO2: 96% Temperature: 36.6 (C) / 97.9 (F) Weight: 135 lbs 11/13/2017 Blood Pressure 1: 134/54 Code : 8480-6 BMI: 24.8 Code : 29025-9 Heart Rate 1 : 73 bpm Height: 5'1" SpO2: 98% Weight: 131 lbs 08/29/2017 Blood Pressure 1: 162/64 Code : 8480-6 BMI: 24.9 Code : 86721-5 Heart Rate 1 : 61 bpm Height: 5'1" SpO2: 96% Weight: 132 lbs 07/28/2017 Blood Pressure 1: 148/62 Code : 8480-6 BMI: 25.1 Code : 86511-9 Heart Rate 1 : 67 bpm Height: 5'1" SpO2: 99% Temperature: 36.4 (C) / 97.5 (F) Weight: 133 lbs 06/20/2017 Blood Pressure 1: 140/52 Code : 8480-6 BMI: 25.3 Code : 58352-0 Heart Rate 1 : 64 bpm Height: 5'1" SpO2: 98% Weight: 134 lbs 05/26/2017 Blood Pressure 1: 140/56 Code : 8480-6 BMI: 25.7 Code : 68335-7 Heart Rate 1 : 74 bpm Height: 5'1" SpO2: 95% Weight: 136 lbs 04/24/2017 Blood Pressure 1: 140/68 Code : 8480-6 BMI: 24.6 Code : 06444-3 Heart Rate 1 : 67 bpm Height: 5'1" SpO2: 97% Weight: 130 lbs 02/08/2017 Blood Pressure 1: 134/76 Code : 8480-6 BMI: 24.9 Code : 08199-2 Heart Rate 1 : 67 bpm Height: 5'1" SpO2: 98% Waist Measure (cm): 13760 cm Weight: 132 lbs 12/22/2016 Blood Pressure 1: 156/80 Code : 8480-6 BMI: 24.2 Code : 68682-0 Heart Rate 1 : 65 bpm Height: 5'1" SpO2: 98% Weight: 128 lbs 12/16/2016 Blood Pressure 1: 138/62 Code : 8480-6 BMI: 23.8 Code : 99610-7 Heart Rate 1 : 63 bpm Height: 5'1" SpO2: 98% Weight: 126 lbs 08/15/2016 Blood Pressure 1: 130/60 Code : 8480-6 BMI: 25.3 Code : 03182-3 Heart Rate 1 : 72 bpm Height: 5'1" SpO2: 95% Weight: 134 lbs 08/02/2016 Blood Pressure 1: 160/62 Code : 8480-6 BMI: 25.3 Code : 21409-6 Heart Rate 1 : 67 bpm Height: 5'1" SpO2: 97% Weight: 134 lbs 07/21/2016 Blood Pressure 1: 148/66 Code : 8480-6 BMI: 25.9 Code : 84942-0 Heart Rate 1 : 71 bpm Height: 5'1" SpO2: 97% Temperature: 36.8 (C) / 98.2 (F) Weight: 137 lbs 07/01/2016 Blood Pressure 1: 142/72 Code : 8480-6 BMI: 26.5 Code : 07812-2 Heart Rate 1 : 68 bpm Height: 5'1" SpO2: 94% Weight: 140 lbs 05/16/2016 Blood Pressure 1: 162/76 Code : 8480-6 Blood Pressure 1: 138/68 Code: 8480-6 BMI: 25.7 Code: 11311-3 Heart Rate 1: 58 bpm Height: 5'1" SpO2: 98% Weight: 136 lbs 04/06/2016 Blood Pressure 1: 162/72 Code : 8480-6 Blood Pressure 1: 138/74 Code: 8480-6 BMI: 25.7 Code: 96535-0 Heart Rate 1: 75 bpm Height: 5'1" SpO2: 97% Weight: 136 lbs 03/30/2016 Blood Pressure 1: 188/80 Code : 8480-6 BMI: 26.3 Code : 99510-1 Heart Rate 1 : 75 bpm Height: 5'1" SpO2: 98% Weight: 139 lbs 02/01/2016 Blood Pressure 1: 140/72 Code : 8480-6 BMI: 25.3 Code : 45553-0 Heart Rate 1 : 65 bpm Height: 5'1" SpO2: 97% Waist Measure (cm): 84 cm Weight: 134 lbs 01/25/2016 Blood Pressure 1: 140/74 Code : 8480-6 BMI: 25.1 Code : 47514-7 Heart Rate 1 : 66 bpm Height: 5'1" SpO2: 98% Weight: 133 lbs 12/24/2015 Blood Pressure 1: 142/66 Code : 8480-6 BMI: 24.9 Code : 96715-6 Heart Rate 1 : 54 bpm Height: 5'1" SpO2: 97% Weight: 132 lbs 12/18/2015 Blood Pressure 1: 152/62 Code : 8480-6 BMI: 25.5 Code : 10068-7 Heart Rate 1 : 66 bpm Height: 5'1" SpO2: 96% Weight: 135 lbs 12/11/2015 Blood Pressure 1: 136/54 Code : 8480-6 Heart Rate 1: 72 bpm SpO2: 98% Weight: 137 lbs 11/26/2015 Blood Pressure 1: 142/70 Code : 8480-6 BMI: 25.3 Code : 33379-3 Heart Rate 1 : 64 bpm Height: 5'1" SpO2: 97% Weight: 134 lbs 11/20/2015 Blood Pressure 1: 154/70 Code : 8480-6 Heart Rate 1: 65 bpm SpO2: 98% 10/23/2015 Blood Pressure 1: 138/62 Code : 8480-6 Heart Rate 1: 55 bpm SpO2: 98% 10/21/2015 Blood Pressure 1: 142/68 Code : 8480-6 BMI: 25.7 Code : 27392-6 Heart Rate 1 : 73 bpm Height: 5'1" SpO2: 98% Weight: 136 lbs 07/15/2015 Blood Pressure 1: 130/60 Code : 8480-6 BMI: 26.6 Code : 15437-9 Heart Rate 1 : 70 bpm Height: 5'1" SpO2: 97% Weight: 141 lbs 06/15/2015 Blood Pressure 1: 118/64 Code : 8480-6 BMI: 24.9 Code : 39136-3 Heart Rate 1 : 66 bpm Height: 5'1" SpO2: 99% Weight: 132 lbs 06/05/2015 Blood Pressure 1: 142/60 Code : 8480-6 Blood Pressure 1: 135/58 Code: 8480-6 Heart Rate 1: 64 bpm SpO2: 99% 05/19/2015 Blood Pressure 1: 146/60 Code : 8480-6 BMI: 27.1 Code : 88391-9 Heart Rate 1 : 66 bpm Height: 5'1" SpO2: 97% Weight: 143 lbs 8 oz 04/24/2015 Blood Pressure 1: 148/58 Code : 8480-6 BMI: 25.9 Code : 91384-8 Heart Rate 1 : 61 bpm Height: 5'1" SpO2: 98% Weight: 137 lbs 03/12/2015 Blood Pressure 1: 140/72 Code : 8480-6 BMI: 25.1 Code : 65237-2 Heart Rate 1 : 68 bpm Height: 5'1" SpO2: 98% Weight: 133 lbs 01/12/2015 Blood Pressure 1: 146/60 Code : 8480-6 BMI: 25.7 Code : 99475-6 Heart Rate 1 : 48 bpm Height: 5'1" SpO2: 97% Weight: 136 lbs 12/11/2014 Blood Pressure 1: 144/56 Code : 8480-6 Blood Pressure 1: 125/65 Code: 8480-6 BMI: 25.1 Code: 08973-7 Heart Rate 1: 56 bpm Height: 5'1" SpO2: 96% Weight: 133 lbs 12/01/2014 Blood Pressure 1: 136/60 Code : 8480-6 Heart Rate 1: 56 bpm SpO2: 96% Weight: 131 lbs 5 oz 08/14/2014 Blood Pressure 1: 132/72 Code : 8480-6 BMI: 25.5 Code : 08793-6 Heart Rate 1 : 73 bpm Height: [...] R60.0] [facility] CPT-4 : 55589 06/07/2018 ([id number]) 45468 EST. PATIENT, LEVEL III Diagnosis: Essential (primary) hypertension[ICD10: I10] Diagnosis: Unilateral primary osteoarthritis, left knee[ICD10: M17.12] Berenice Cohen MD , [facility] CPT-4: 72572 05/22/2018 ([id number]) 98790 EST. PATIENT, LEVEL IV Diagnosis: Essential (primary) hypertension[ICD10: I10] Diagnosis: Other abnormal glucose[ICD10: R73.09] Diagnosis: Mixed hyperlipidemia[ICD10: E78.2] Diagnosis: Vitamin D deficiency, unspecified[ICD10: E55.9] Berenice Cohen MD, [facility] CPT-4: 80541 04/11/2018 62290 EST. PATIENT, LEVEL IV Diagnosis: Other acute sinusitis[ICD10: J01.80] Diagnosis: Other allergic rhinitis[ICD10: J30.89] Evelyn Cohen MD, [facility] CPT-4: 35565 02/06/2018 36168 EST. PATIENT, LEVEL III Diagnosis: Other allergic rhinitis[ICD10: J30.89] Diagnosis: Other acute sinusitis[ICD10: J01.80] Evelyn Cohne MD, [facility] CPT-4: 19056 12/08/2017 ([id number]) 75864 EST. PATIENT, LEVEL IV Diagnosis: Essential (primary) hypertension[ICD10: I10] Diagnosis: Chronic maxillary sinusitis[ICD10: J32.0] Diagnosis: Mixed hyperlipidemia[ICD10: E78.2] Diagnosis: Other abnormal glucose[ICD10: R73.09] Berenice Cohen MD, [facility] CPT-4: 78492 11/13/2017 ([id number]) 36945 EST. PATIENT, LEVEL III Diagnosis: Tinea corporis[ICD10: B35.4] Diagnosis: Essential (primary) hypertension[ICD10: I10] Doris Cohen MD, [facility] CPT-4: 55182 08/29/2017 ([id number]) 20865 EST. PATIENT, LEVEL III Diagnosis: Acute recurrent maxillary sinusitis[ICD10: J01.01] Diagnosis: Other allergic rhinitis[ICD10: J30.89] Doris Cohen MD, [facility] CPT-4: 88800 07/28/2017 61214 EST. PATIENT, LEVEL IV Diagnosis: Other acute sinusitis[ICD10: J01.80] Diagnosis: Other allergic rhinitis[ICD10: J30.89] Diagnosis: Otalgia, bilateral[ICD10: H92.03] Diagnosis: Pain in right knee[ICD10: M25.561] Diagnosis: Pain in left knee[ICD10: M25.562] Evelyn Cohen MD, [facility] CPT -4: 15616 06/20/2017 31118 EST. PATIENT, LEVEL IV Diagnosis: Other acute sinusitis[ICD10: J01.80] Diagnosis: Other allergic rhinitis[ICD10: J30.89] Diagnosis: Gastro-esophageal reflux disease without esophagitis[ICD10: K21.9] Evelyn Cohen MD, [facility] CPT-4: 97437 05/26/2017 [id number] EST. PATIENT, LEVEL III Diagnosis: Essential (primary) hypertension[ICD10: I10] Evelyn Cohen MD, [facility] CPT-4: 02955 04/24/2017 ([id number]) 19112 EST. PATIENT, LEVEL IV Diagnosis: Essential (primary) hypertension[ICD10: I10] Diagnosis: Other abnormal glucose[ICD10: R73.09] Diagnosis: Mixed hyperlipidemia[ICD10: E78.2] Berenice Cohen MD, [facility] CPT-4: 20387 12/22/2016 93888 EST. PATIENT, LEVEL IV Diagnosis: Other acute sinusitis[ICD10: J01.80] Diagnosis: Other allergic rhinitis[ICD10: J30.89] Evelyn Cohen MD, [facility] CPT-4: 32342 12/16/2016 ([id number]) 67519 EST. PATIENT, LEVEL IV Diagnosis: Essential (primary) hypertension[ICD10: I10] Diagnosis: Mixed hyperlipidemia[ICD10: E78.2] Diagnosis: Dysuria[ICD10: R30.0] Berenice Cohen MD, [facility] CPT-4: 88511 08/15/2016 80498 EST. PATIENT, LEVEL III Diagnosis: Other acute sinusitis[ICD10: J01.80] Diagnosis: Other allergic rhinitis[ICD10: J30.89] Diagnosis: Otalgia, bilateral[ICD10: H92.03] Evelyn Cohen MD, [facility] CPT -4: 90214 08/02/2016 ([id number]) 29766 EST. PATIENT, LEVEL III Diagnosis: Acute recurrent maxillary sinusitis[ICD10: J01.01] Diagnosis: Otalgia, right ear[ICD10: H92.01] Doris Cohen MD, [facility] CPT-4: 88423 07/21/2016 46000 EST. PATIENT, LEVEL III Diagnosis: Dysuria[ICD10: R30.0] Diagnosis: Other allergic rhinitis[ICD10: J30.89] Evelyn Cohen MD, [facility] CPT-4: 88087 07/01/2016 ([id number]) 62663 EST. PATIENT, LEVEL IV Diagnosis: Essential (primary) hypertension[ICD10: I10] Diagnosis: Mixed hyperlipidemia[ICD10: E78.2] Berenice Cohen MD, [facility] CPT-4: 39210 05/16/2016 08287 EST. PATIENT, LEVEL III Diagnosis: Mixed hyperlipidemia[ICD10: E78.2] Diagnosis: Essential (primary) hypertension[ICD10: I10] Diagnosis: Laceration without foreign body of left hand, subsequent encounter[ ICD10: S61.412D] Evelyn Cohen MD, [facility] CPT-4: 58974 04/06/2016 ([id number]) 73925 EST. PATIENT, LEVEL III Diagnosis: Essential (primary) hypertension[ICD10: I10] Berenice Cohen MD, [facility] CPT-4: 38959 03/30/2016 ([id number]) 86414 EST. 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 PATIENT, LEVEL III Diagnosis: Essential (primary) hypertension[ICD10: I10] Berenice Cohen MD, [facility] CPT-4: 08419 12/24/2015 62012 EST. PATIENT, LEVEL III Diagnosis: Other acute sinusitis[ICD10: J01.80] Diagnosis: Other allergic rhinitis[ICD10: J30.89] Evelyn Cohen MD, [facility] CPT-4: 36723 12/18/2015 ([id number]) Miscellaneous no charge Diagnosis: Essential (primary) hypertension[ICD10: I10] Evelyn Cohen MD, [facility] CPT-4: 01397 12/11/2015 ([id number]) 95762 EST. PATIENT, LEVEL IV Diagnosis: Essential (primary) hypertension[ICD10: I10] Diagnosis: Other abnormal glucose[ICD10: R73.09] Diagnosis: Encounter for immunization[ICD10: Z23] Berenice Cohen MD, [facility] CPT-4: 38515 11/26/2015 ([id number]) Miscellaneous no charge Diagnosis: Bitten by dog, initial encounter[ICD10: W54.0XXA] Evelyn Cohen MD, [facility] CPT-4: 33470 10/29/2015 ([id number]) Miscellaneous no charge Diagnosis: Essential (primary) hypertension[ICD10: I10] Diagnosis: Bitten by dog, initial encounter[ICD10: W54.0XXA] Evelyn Cohen MD, [facility] CPT-4: 59243 10/23/2015 95929 EST. PATIENT, LEVEL III Diagnosis: Cellulitis of face[ICD10: L03.211] Diagnosis: Bitten by dog, initial encounter[ICD10: W54.0XXA] Evelyn Cohen MD, [facility] CPT-4: 81209 10/21/2015 ([id number]) Miscellaneous no charge Diagnosis: Essential (primary) hypertension[ICD10: I10] Evelyn Cohen MD, [facility] CPT-4: 86546 07/15/2015 ([id number]) 46554 EST. PATIENT, LEVEL IV Diagnosis: Essential (primary) hypertension[ICD10: I10] Diagnosis: Mixed hyperlipidemia[ICD10: E78.2] Diagnosis: Dry mouth, unspecified[ICD10: R68.2] Berenice Cohen MD, [facility] CPT-4: 96998 06/15/2015 ([id number]) Miscellaneous no charge Diagnosis: Essential (primary) hypertension[ICD10: I10] Doris Cohen MD, [facility] CPT-4: 92768 06/05/2015 ([id number]) 97589 EST. PATIENT, LEVEL IV Diagnosis: Mammographic microcalcification found on diagnostic imaging of breast [ICD10: R92.0] Diagnosis: Edema, unspecified[ICD10: R60.9] Diagnosis: Essential (primary) hypertension[ICD10: I10] Berenice Cohen MD, [facility] CPT-4: 84156 05/19/2015 62948 EST. PATIENT, LEVEL IV Diagnosis: Other acute sinusitis[ICD10: J01.80] Diagnosis: Acute nasopharyngitis [common cold][ICD10: J00] Diagnosis: Other allergic rhinitis[ICD10: J30.89] Diagnosis: Localized edema[ICD10: R60.0] Diagnosis: Mixed hyperlipidemia[ICD10: E78.2] Evelyn Cohen MD, [facility] CPT-4: 49196 04/24/2015 ([id number]) 82021 EST. PATIENT, LEVEL IV Diagnosis: Essential (primary) hypertension[ICD10: I10] Diagnosis: Abscess of liver[ICD10: K75.0] Diagnosis: Anemia, unspecified[ICD10: D64.9] Berenice Cohen MD, [facility] CPT-4: 30655 03/12/2015 30332 EST. PATIENT, LEVEL IV Diagnosis: Essential (primary) hypertension[ICD10: I10] Diagnosis: Candidal stomatitis[ICD10: B37.0] Diagnosis: Pain in unspecified knee[ICD10: M25.569] Diagnosis: Edema, unspecified[ICD10: R60.9] Evelyn Cohen MD, [facility] CPT- 4: 33022 01/12/2015 ([id number]) 93750 EST. PATIENT, LEVEL III Diagnosis: Pain in right foot[ICD10: M79.671] Berenice Cohen MD, [facility] CPT-4: 58677 12/11/2014 ([id number]) 32633 EST. PATIENT, LEVEL IV Diagnosis: Abscess of liver[ICD10: K75.0] Diagnosis: Hypo-osmolality and hyponatremia[ICD10: E87.1] Diagnosis: Essential (primary) hypertension[ICD10: I10] Diagnosis: VACCIN FOR INFLUENZA[ICD10: Z23] Berenice Cohen MD, [facility] CPT-4: 76897 12/01/2014 ([id number]) OFFICE VISIT, NEW - LEVEL 4 Diagnosis: ESSENTIAL HYPERTENSION[ICD9: 401.9] Diagnosis: Chronic maxillary sinusitis[ICD9: 473.0] [facility] CPT-4: 07078 08/14/2014 Plan of Care Planned Activity Notes Codes Status Date Visit Plan: Edema - pt has been advised to elevate legs to prevent dependent edema, compression has been recommended to help to naturally decrease peripheral edema. Diuretic use has been discussed and pt has been instructed in appropriate use of such medication as necessary to further attempt to reduce peripheral edema. 06/07/2018 Patient Education: Patient Medication Summary Completed 06/07/2018 Appointment: [phone] (15 min) Moderate 05/28/2018 Referral: Eduardo Suggs [...] Marta have her surgery at [facility] [place] so she can see her as well as any specialists if needed. RX for walker provided to help with stability and prevent falling. 05/22/2018 App[facility]ment: [phone] (30 min) Complex 05/22/2018 Patient Education: Patient Medication Summary Completed 05/22/2018 Care Plan: Referral Order SNOMED-CT : [id number] Pending 05/22/2018 Visit Plan: Hypertension - well [...] medications. 04/11/2018 Appointment: Berenice Cohen WPtel: [phone] [facility] (15 min) Moderate 04/11/2018 Patient Education: Patient Medication Summary Completed 04/11/2018 Patient Education: Hypertension Completed 04/11/2018 Patient Education: Cholesterol Management Completed 04/11/2018 Patient Education: Patient Medication Summary Completed 03/30/2018 Care Plan: Comp Metabolic Pending 03/30/2018 Care Plan: Cbc With Differential Pending 03/30/2018 Care Plan: Tsh Pending 03/30/2018 Care Plan: Lipid Pending 03/30/2018 Appointment: Berenice Cohen WPtel: [phone] [facility] (15 min) Moderate 03/28/2018 Appointment: Berenice Cohen WPtel: [phone] [facility] (15 min) Moderate 03/19/2018 Visit Plan: Sinusitis [...] spray. 02/06/2018 Appointment: Evelyn West WPtel: [phone] [facility] (15 min) Moderate 02/06/2018 Patient Education: Patient Medication Summary Completed 02/06/2018 Patient Education: Patient Medication Summary Completed 12/29/2017 Care Plan: %Hba1C LOINC : 17036-3 Pending 12/11/2017 Visit Plan: Sinusitis - Pt [...] allergy spray. 12/08/2017 Appointment: Evelyn West WPtel: [address] [place], [place] [address] (15 min) Moderate 12/08/2017 Patient Education: Patient [...] shot today 11/13/2017 Appointment: Berenice Cohen WPtel: [facility] (15 min) Moderate 11/13/2017 Patient Education: Patient Medication Summary Completed 11/13/2017 Patient Education: Cholesterol Management Completed 11/13/2017 Visit Plan: Tinea-rx sent to patient's pharmacy and instructed on use-keep groin clean/dry -call if symptoms do not resolve or if any worse HTN-elevated today-monitor and home and call if continues to be elevated 08/29/2017 Appointment: Doris Sheffield WPtel: [facility] [address] (15 min) Moderate 08/29/2017 Patient Education: [...] any worse 07/28/2017 Appointment: Doris Sheffield WPtel: [phone] (30 min) Complex 07/28/2017 Patient Education: Patient [...] improve. 06/20/2017 Appointment: Evelyn West WPtel: [phone] [facility] (15 min) Moderate 06/20/2017 Patient Education: Patient [...] improving. 05/26/2017 Appointment: Evelyn West WPtel: [phone] [facility] (15 min) Moderate 05/26/2017 Patient Education: Patient [...] concerns. 04/24/2017 Appointment: Evelyn West WPtel: [phone] [facility] (30 min) Complex 04/24/2017 Patient Education: Patient [...] care surrogate. 02/08/2017 Appointment: Evelyn West WPtel: [phone] [facility] [facility] - Annual Wellness Visit 02/08/2017 Patient [...] vaccine today 12/22/2016 Appointment: [phone] (15 min) Moderate 12/22/2016 Patient Education: Patient [...] allergy spray. 12/16/2016 Appointment: [phone] [phone] ([facility] min) Complex 12/16/2016 Patient Education: Patient Medication Summary Completed 12/16/2016 Appointment: [phone] (15 min) Moderate 11/15/2016 Visit Plan: Hypertension [...] carbohydrates. 08/15/2016 Appointment: Berenice Cohen WPtel: [phone] [facility] (15 min) Moderate 08/15/2016 Patient Education: Patient Medication Summary Completed 08/15/2016 Appointment: Doris Sheffield WPtel: [phone] [phone] (15 min) Moderate 08/05/2016 Visit Plan: Allergies [...] show improvement. 08/02/2016 Appointment: Evelyn West WPtel: [facility] (30 min) Complex 08/02/2016 Patient Education: Patient [...] flushed 07/21/2016 Appointment: Doris Sheffield WPtel: [phone] [phone] (15 min) Moderate 07/21/2016 Patient Education: [...] 10mg nightly. 05/16/2016 Appointment: Berenice Cohen WPtel: [facility] (15 min) Moderate 05/16/2016 Patient Education: Patient [...] concerns. 04/06/2016 Appointment: [phone] (10 min) Simple 04/06/2016 Patient Education: [...] daily. 03/30/2016 Appointment: Berenice Cohen WPtel: [phone] [facility] (15 min) Moderate 03/30/2016 Patient Education: Patient Medication Summary Completed 03/30/2016 Appointment: [phone] [facility] (15 min) Moderate 03/24/2016 Visit Plan: Medicare [...] care surrogate. 02/01/2016 Appointment: Evelyn West WPtel: [facility] [facility] - Annual Wellness Visit 02/01/2016 Patient Education: Patient Medication Summary Completed 02/01/2016 Visit Plan: Apthous ulcer - rx for acyclovir 800mg tid x7 days Sample of Voltaren gel to use on knees tid prn 01/25/2016 Appointment: Berenice Cohen WPtel: [facility] (15 min) Moderate 01/25/2016 Patient Education: Patient Medication Summary Completed 01/25/2016 Visit Plan: Hypertension - well controlled - continue with current medications, continue with no added salt diet. Pt has been encouraged to exercise daily. The pt has been advised to call the office if there are any acute concerns about change in blood pressure readings at home. 12/24/2015 Appointment: Berenice Cohen WPtel: [facility] (15 min) Moderate 12/24/2015 Patient Education: Patient [...] show improvement. 12/18/2015 Appointment: Doris Sheffield WPtel: [phone] (15 min) Moderate 12/18/2015 Patient Education: [...] - 11/26/2015 Appointment: [phone] (15 min) Moderate 11/26/2015 Patient Education: Patient [...] pain. 10/21/2015 Appointment: [phone] (15 min) Moderate 10/21/2015 Patient Education: [...] spray 06/15/2015 Appointment: [facility]ren[facility] Cohen [facility]Ptel: [phone] [facility] [place] (15 min) Moderate 06/15/2015 Patient Education: Patient Medication Summary Completed 06/15/2015 Patient Education: Patient Medication Summary Completed 06/12/2015 Appointment: [facility]ren[facility] Cohen [facility]Ptel: [phone] [facility] [place] (15 min) Moderate 06/11/2015 Appointment: Nurse [...] the day 03/12/2015 Appointment: Berenice Cohen WPtel: [facility] (15 min) Moderate 03/12/2015 Patient Education: Patient [...] appointment with then soon. Pt to try [place] rub on the knees to help reduce [...] is sore 12/11/2014 Appointment: Berenice Cohen WPtel: [address] [place], [place] [phone] (15 min) Moderate 12/11/2014 Patient Education: Patient [...] not improving. 12/01/2014 Appointment: Berenice Cohen WPtel: [facility] (15 min) Moderate 12/01/2014 Patient Education: Patient Medication Summary Completed 12/01/2014 Patient Education: Hypertension Completed 12/01/2014 Appointment: Berenice Cohen WPtel: [address] [place], [place] [phone] (15 min) Moderate 09/15/2014 Visit Plan: Hypertension [...] not improve. 08/14/2014 Appointment: Berenice Cohen WPtel: [facility] [place] (S) New Patient 08/14/2014 Patient Education: [...] foot where it is sore [employer] kit calciner feeder will contact you for a colon screen test - it is a colon cancer screening that you will do at home and send in to the calciner feeder. . No fracture of foot - recommended [...] Marta have her surgery at [facility] [place] so she can see her as well [...] TWO hours after a meal - try [place] on your knee. Decrease Salt in diet. [...] appointment with then soon. Pt to try [place] rub on the knees to help reduce [...]
[2018-06-30 14:09] LABS: BASOPHILS % (AUTO) 0 % (0-10); EOSINOPHILS # (AUTO) 0.2 10^3/uL (0.0-0.3); EOSINOPHILS % (AUTO) 2 % (0-10); HEMATOCRIT 37 % (35-52); HEMOGLOBIN 12.1 G/DL (11.5-16.0); LYMPHOCYTES # (AUTO) 4.1 X 10^3 (1.0-4.0); LYMPHOCYTES % (AUTO) 32 % (12-44); MEAN CORPUSCULAR HEMOGLOBIN 30 PG (25-34); MEAN CORPUSCULAR HGB CONC 33 G/DL (32-36); MEAN CORPUSCULAR VOLUME 89 FL (80-99); MEAN PLATELET VOLUME 11.1 FL (7.4-10.4); MONOCYTES # (AUTO) 1.2 X 10^3 (0.0-1.0); MONOCYTES % (AUTO) 10 % (0-12); NEUTROPHILS # (AUTO) 7.3 X 10^3 (1.8-7.8); NEUTROPHILS % (AUTO) 57 % (42-75); PLATELET COUNT 218 10^3/uL (130-400); RED CELL DISTRIBUTION WIDTH 14.5 % (10.0-14.5); WHITE BLOOD COUNT 12.8 10^3/uL (4.3-11.0)
--- OUTSIDE RECORDS SUMMARY | 2018-06-30 14:09 | XMS REPORT | CCD ---
Author Author Berenice Cohen Organization Berenice Cohen MD, [facility] Address [address] [place] [address] Phone Care Team Providers Care Realtime Court Reporter Name Role Phone PP Unavailable CCM Unavailable Summary Purpose Interface Exchange Insurance Providers Payer name Policy type / Coverage type Covered green party ID Effective Begin Date Effective End Date [employer] [id number] Unknown Unknown Family history Son Diagnosis Age [...] Unknown Retired 08/14/[address]: 090440276 Never smoker 08/14/[address]: 001918611 Never drinks alcohol 08/14/2014 Allergies, Adverse Reactions, Alerts Substance Reaction Codes Entered Date Inactivated Date Status AUGMENTIN hives, RxNorm: 509190 08/14/2014 No Inactive Date Active SCFCOAR-DYU-FBF REDUCTASE INHIBITORS myalgias, Unknown 2015 No Inactive [...] Start Date Stop Date Status Fill Instructions Voltaren 1 % topical gel RxNorm: 134437 1 Application TOP QID as needed 06/04/2018 No Stop Date Active Carafate 1 gram tablet RxNorm: 532487 1 Tablet(s) PO QID as needed 05/25/2018 06/03/2018 Inactive Carafate 1 gram tablet RxNorm: 309665 1 Tablet(s) PO QID as needed 05/25/2018 05/24/2018 Inactive Zithromax Z-Dylan 250 mg tablet RxNorm: 009208 1 Tablet(s) PO UD 05/02/2018 06/03/2018 Inactive glipizide 5 mg tablet RxNorm: 141652 1 Tablet(s) PO BID 201808/15/2018 Active glipizide 5 mg tablet RxNorm: 078994 1 Tablet(s) PO BID 201804/17/2018 Inactive Xanax 0.25 mg tablet RxNorm: 189404 1 Tablet(s) PO TID as needed anxiety 04/11/2018 06/09/2018 Active Zithromax Z-Dylan 250 mg tablet RxNorm: 664760 1 Tablet(s) PO UD 02/06/2018 04/17/2018 Inactive Zyrtec 10 mg tablet RxNorm: 7322122 1 Tablet(s) PO daily 12/0801/06/2018 Inactive Zithromax Z-Dylan 250 mg tablet RxNorm: 930392 1 Tablet(s) PO UD 12/08/2017 02/05/2018 Inactive Lipitor 10 mg tablet RxNorm: 003153 1 Tablet(s) PO QHS 201706/21/2018 Active Lipitor 10 mg tablet RxNorm: 081470 TAKE 1 TABLET BY MOUTH EVERY DAY AT BEDTIME 11/24/2017 No Stop Date Active lisinopril 10 mg tablet RxNorm: 228789 1 Tablet(s) PO daily 08/17/2018 Active prednisone 20 mg tablet RxNorm: 821584 2 Tablet(s) PO daily 11/17/2017 Inactive Keflex 500 mg capsule RxNorm: 517070 1 Capsule(s) PO TID and take a probiotic BID x711/07/2017 11/13/2017 Inactive take with probiotic BID amlodipine 5 mg tablet RxNorm: 546753 1 Tablet(s) PO daily 10/06/2018 Active cefdinir 300 mg capsule RxNorm: 109750 1 Capsule(s) PO BID 09/23/2017 Inactive cefdinir 300 mg capsule RxNorm: 932462 1 Capsule(s) PO BID started by Dr. Davila 09/14/2017 09/13/2017 Inactive betamethasone dipropionate 0.05 % topical cream RxNorm: 665034 1 Application TOP BID 08/29/2017 10/09/2017 Inactive mix with clotrimazole and apply to affected area clotrimazole 1 % topical cream RxNorm: 253323 1 Application TOP BID 08/29/2017 10/09/2017 Inactive mix with betamethasone and apply to affected area nystatin 100,000 unit/mL oral suspension RxNorm: 129212 5 Milliliter(s) PO QID 08/29/2017 09/17/2017 Inactive lisinopril 10 mg tablet RxNorm: 552587 1 Tablet(s) PO daily 11/14/2017 Inactive Kenalog 40 mg/mL suspension for injection RxNorm: 6675231 1 Milliliter(s) Inj 07/28/2017 07/28/2017 Inactive nystatin 100,000 unit/mL oral suspension RxNorm: 002339 5 Milliliter(s) PO QID 07/28/2017 08/06/2017 Inactive Keflex 500 mg capsule RxNorm: 019611 1 Capsule(s) PO TID 201708/03/2017 Inactive Flonase Allergy Relief 50 mcg/actuation nasal spray, suspension RxNorm: 7206571 USE ONE SPRAY(S) IN EACH NOSTRIL TWICE DAILY 07/25/2017 No Stop Date Active meclizine 25 mg tablet RxNorm: 271426 TAKE ONE TABLET BY MOUTH THREE TIMES DAILY NEEDED 07/25/2017 No Stop Date Active Voltaren 1 % topical gel RxNorm: 664834 1 Application TOP QID as needed 06/20/2017 06/03/2018 Inactive Zithromax Z-Dylan 250 mg tablet RxNorm: 642244 1 Tablet(s) PO UD 06/20/2017 07/27/2017 Inactive z pack as directed Keflex 500 mg capsule RxNorm: 529964 1 Capsule(s) PO TID 201706/01/2017 Inactive Zithromax Z-Dylan 250 mg tablet RxNorm: 960727 1 Tablet(s) PO UD 04/27/2017 06/19/2017 Inactive z pack as directed lisinopril 10 mg tablet RxNorm: 727449 1 Tablet(s) PO daily 07/22/2017 Inactive Lipitor 10 mg tablet RxNorm: 308458 1 Tablet(s) PO QHS 201711/06/2017 Inactive Zithromax Z-Dylan 250 mg tablet RxNorm: 511506 1 Tablet(s) PO UD 02/15/2017 04/26/2017 Inactive z pack as directed meclizine 25 mg tablet RxNorm: 888622 TAKE ONE TABLET BY MOUTH THREE TIMES DAILY NEEDED 01/23/2017 07/24/2017 Inactive Zithromax Z-Dylan 250 mg tablet RxNorm: 567151 1 Tablet(s) PO UD 01/05/2017 02/14/2017 Inactive z pack as directed losartan 50 mg tablet RxNorm: 791412 1 Tablet(s) PO daily 201604/10/2017 Inactive amlodipine 5 mg tablet RxNorm: 850121 1 Tablet(s) PO daily 10/11/2017 Inactive Zithromax Z-Dylan 250 mg tablet RxNorm: 907121 1 Tablet(s) PO UD 12/16/2016 01/04/2017 Inactive z pack as directed Zyrtec 10 mg tablet RxNorm: 6489928 1 Tablet(s) PO daily 12/1601/14/2017 Inactive Lipitor 10 mg tablet RxNorm: 085274 1 Tablet(s) PO QHS 201602/22/2017 Inactive Zithromax Z-Dylan 250 mg tablet RxNorm: 382017 1 Tablet(s) PO UD 09/27/2016 12/15/2016 Inactive z pack as directed Lipitor 10 mg tablet RxNorm: 533312 1 Tablet(s) PO QHS 201610/25/2016 Inactive guaifenesin 400 mg tablet RxNorm: 153385 1 Tablet(s) PO BID as needed 08/04/2016 No Stop Date Active cefdinir 300 mg capsule RxNorm: 686503 1 Capsule(s) PO BID started by Dr. Davila 08/04/2016 08/13/2016 Inactive amlodipine 10 mg tablet RxNorm: 195899 1 Tablet(s) PO daily 07/201612/21/2016 Inactive Keflex 500 mg capsule RxNorm: 818843 1 Capsule(s) PO TID 201607/27/2016 Inactive Zyrtec 10 mg tablet RxNorm: 5647463 1 Tablet(s) PO daily 07/0107/30/2016 Inactive Xanax 0.25 mg tablet RxNorm: 531461 1 Tablet(s) PO TID as needed anxiety 07/01/2016 08/27/2016 Inactive amlodipine 5 mg tablet RxNorm: 366666 1 Tablet(s) PO daily 06/201607/30/2016 Inactive Keflex 500 mg capsule RxNorm: 350010 1 Capsule(s) PO TID 201607/03/2016 Inactive Keflex 500 mg capsule RxNorm: 503944 1 Capsule(s) PO TID 201606/23/2016 Inactive Keflex 500 mg capsule RxNorm: 794571 1 Capsule(s) PO TID 201606/30/2016 Inactive Flonase Allergy Relief 50 mcg/actuation nasal spray, suspension RxNorm: 0840688 USE ONE SPRAY(S) IN EACH NOSTRIL TWICE DAILY 06/20/2016 05/15/2017 Inactive amlodipine 10 mg tablet RxNorm: 046294 1 Tablet(s) PO daily 04/201606/28/2016 Inactive Lipitor 10 mg tablet RxNorm: 765093 1 Tablet(s) PO QHS 201608/14/2016 Inactive Flonase Allergy Relief 50 mcg/actuation nasal spray, suspension RxNorm: 8425340 USE ONE SPRAY(S) IN EACH NOSTRIL TWICE DAILY 04/18/2016 05/17/2016 Inactive cephalexin 500 mg capsule RxNorm: 405371 1 Capsule(s) PO TID 04/05/2016 Inactive take with probiotics BID amlodipine 10 mg tablet RxNorm: 254238 1 Tablet(s) PO daily 02/201605/29/2016 Inactive Bactroban 2 % topical cream RxNorm: 742294 1 Application TOP BID 03/30/2016 04/08/2016 Inactive Zithromax Z-Dylan 250 mg tablet RxNorm: 659036 1 Tablet(s) PO UD 03/10/2016 05/15/2016 Inactive z pack as directed Keflex 500 mg capsule RxNorm: 565036 1 Capsule(s) PO TID 201502/25/2016 Inactive take with probiotics BID acyclovir 800 mg tablet RxNorm: 832801 1 Tablet(s) PO TID 01/2402/21/2016 Inactive Zithromax Z-Dylan 250 mg tablet RxNorm: 708126 1 Tablet(s) PO UD 01/19/2016 01/24/2016 Inactive z pack Flonase Allergy Relief 50 mcg/actuation nasal spray, suspension RxNorm: 2054846 USE ONE SPRAY(S) IN EACH NOSTRIL TWICE DAILY 12/28/2015 02/25/2016 Inactive Kenalog 40 mg/mL suspension for injection RxNorm: 8051365 Milliliter(s) Inj 12/18/2015 12/18/2015 Inactive Keflex 500 mg capsule RxNorm: 601949 1 Capsule(s) PO TID 201512/24/2015 Inactive Zithromax Z-Dylan 250 mg tablet RxNorm: 783138 1 Tablet(s) PO UD 12/09/2015 12/23/2015 Inactive z pack meclizine 25 mg tablet RxNorm: 125576 1 Tablet(s) PO TID as needed 12/09/2015 12/08/2015 Inactive meclizine 25 mg tablet RxNorm: 926571 1 Tablet(s) PO TID as needed 12/09/2015 02/26/2016 Inactive Keflex 500 mg capsule RxNorm: 829013 1 Capsule(s) PO TID 201511/22/2015 Inactive Cipro 500 mg tablet RxNorm: 298206 1 Tablet(s) PO BID 201511/13/2015 Inactive Keflex 500 mg capsule RxNorm: 836378 1 Capsule(s) PO TID 201510/30/2015 Inactive Xanax 0.25 mg tablet RxNorm: 245186 1 Tablet(s) PO TID as needed anxiety 09/18/2015 11/13/2015 Inactive Keflex 500 mg capsule RxNorm: 007151 1 Capsule(s) PO TID 201508/19/2015 Inactive losartan 50 mg tablet RxNorm: 213485 1 Tablet(s) PO daily 201507/07/2015 Inactive Pepcid 20 mg tablet RxNorm: 135971 1 Tablet(s) PO BID 201507/07/2015 Inactive Pepcid 20 mg tablet RxNorm: 708456 1 Tablet(s) PO BID 201501/31/2016 Inactive losartan 50 mg tablet RxNorm: 426001 1 Tablet(s) PO daily 201501/31/2016 Inactive prednisone 20 mg tablet RxNorm: 550586 2 Tablet(s) PO daily 06/22/2015 Inactive prednisone 20 mg tablet RxNorm: 332030 2 Tablet(s) PO daily 12/23/2015 Inactive Diflucan 100 mg tablet RxNorm: 494857 TAKE ONE TABLET BY MOUTH ONCE DAILY 06/12/2015 12/23/2015 Inactive Zithromax Z-Dylan 250 mg tablet RxNorm: 190581 1 Tablet(s) PO UD 06/05/2015 07/06/2015 Inactive z pack amlodipine 5 mg tablet RxNorm: 173647 1 Tablet(s) PO daily 03/29/2016 Inactive Zetia 10 mg tablet RxNorm: 147730 1 Tablet(s) PO daily 201506/14/2015 Inactive valsartan 160 mg tablet RxNorm: 131072 1 Tablet(s) PO daily 07/07/2015 Inactive Lipitor 10 mg tablet RxNorm: 536633 1 Tablet(s) PO QHS 201505/18/2015 Inactive Lipitor 10 mg tablet RxNorm: 921325 1 Tablet(s) PO QHS 201504/27/2015 Inactive Zithromax 250 mg tablet RxNorm: 766492 Tablet(s) PO UD 201504/28/2015 Inactive Keflex 500 mg capsule RxNorm: 226188 1 Capsule(s) PO TID 201503/22/2015 Inactive Keflex 500 mg capsule RxNorm: 608456 1 Capsule(s) PO TID 201504/01/2015 Inactive Xanax 0.25 mg tablet RxNorm: 886498 1 Tablet(s) PO TID as needed anxiety 03/12/2015 07/04/2016 Inactive carvedilol 25 mg tablet RxNorm: 145726 1 Tablet(s) PO BID 03/1201/31/2016 Inactive amlodipine 5 mg tablet RxNorm: 279197 1 Tablet(s) PO BID 201505/18/2015 Inactive Diflucan 100 mg tablet RxNorm: 251730 1 Tablet(s) PO daily 03/21/2015 Inactive Diflucan 100 mg tablet RxNorm: 295464 1 Tablet(s) PO daily 02/14/2015 Inactive Diflucan 100 mg tablet RxNorm: 439228 1 Tablet(s) PO daily 06/201401/05/2015 Inactive Diflucan 100 mg tablet RxNorm: 948372 1 Tablet(s) PO daily 06/201412/31/2014 Inactive nystatin 100,000 unit/mL oral suspension RxNorm: 542657 5 Milliliter(s) PO QID 12/24/2014 06/14/2015 Inactive nystatin 100,000 unit/mL oral suspension RxNorm: 161584 5 Milliliter(s) PO QID 12/24/2014 12/23/2014 Inactive Zithromax 250 mg tablet RxNorm: 961935 1 Tablet(s) PO daily 12/19/2014 Inactive Zithromax 250 mg tablet RxNorm: 519071 1 Tablet(s) PO daily 12/14/2014 Inactive Flonase Allergy Relief 50 mcg/actuation nasal spray, suspension RxNorm: 1 [place] NASAL BID 12/11/2014 12/10/2014 Inactive Flonase Allergy Relief 50 mcg/actuation nasal spray, suspension RxNorm: 7623887 1 [place] NASAL BID 12/11/20142015 Inactive amlodipine 5 mg tablet RxNorm: 814316 2 Tablet(s) PO daily 11/13/2014 Inactive amlodipine 5 mg tablet RxNorm: 732276 2 Tablet(s) PO daily 03/11/2015 Inactive Lotrisone 1 %-0.05 % topical cream RxNorm: 722431 1 TOP BID until healed 10/17/2014 10/30/2014 Inactive Lotrisone 1 %-0.05 % topical cream RxNorm: 873108 1 TOP BID until healed 10/16/2014 10/16/2014 Inactive Lotrisone 1 %-0.05 % topical cream RxNorm: 895812 1 TOP BID until healed 10/06/2014 10/15/2014 Inactive Keflex 500 mg capsule RxNorm: 205546 1 Capsule(s) PO TID 201408/11/2014 Inactive Keflex 500 mg capsule RxNorm: 403604 1 Capsule(s) PO TID 201408/18/2014 Inactive clotrimazole 1 % topical solution RxNorm: 043008 1 Drop(s) TOP BID No Start Date Active Vitamin D3 5,000 unit tablet RxNorm: 213648 1 Tablet(s) PO daily No Start Date Active guaifenesin 400 mg tablet RxNorm: 857525 1 Tablet(s) PO BID as needed No Start Date 08/03/2016 Inactive Lotrisone 1 %-0.05 % topical cream RxNorm: 846840 1 TOP BID until healed No Start Date 10/05/2014 Inactive lisinopril 40 mg tablet RxNorm: 649074 1 Tablet(s) PO daily No Start Date 05/18/2015 Inactive amlodipine 5 mg tablet RxNorm: 613105 1 Tablet(s) PO daily No Start Date 11/13/2014 Inactive indapamide 1.25 mg tablet RxNorm: 054937 1 Tablet(s) PO daily No Start Date 01/31/2016 Inactive aspirin 81 mg tablet RxNorm: 732253 1 Tablet(s) PO daily No Start Date 02/07/2017 Inactive Medication Administered Medication Codes Instructions Start Date Status Kenalog 40 mg/mL suspension for injection RxNorm: 2736369 1Milliliter 07/28/2017 No longer Active Kenalog 40 mg/mL suspension for injection RxNorm: 5484355 Milliliter 12/18/2015 No longer Active Immunizations Vaccine [...] Visit Reason For Visit Effective Dates Notes pre-op/surgery consult 05/22/2018 hypertension 04/11/2018 sinus congestion [...] 30.8 pg 04/11/2018 Cbc With Differential Ord2 [place]% 13.0 % 04/11/2018 Cbc With Differential Ord2 [...] 3.09 K/ul 04/11/2018 Cbc With Differential Ord2 [place] ABS# 1.2 K/ul 04/11/2018 Cbc With Differential Ord2 Eos ABS# 0.2 K/ul 04/11/2018 Cbc With Differential Ord2 Baso ABS# 0.1 K/ul 04/11/2018 Tsh Ord6 TSH (3rd IS) 2.85 uIU/mL 04/11/2018 %Hba1C Ule363 % HbA1c 29847-4 7.1 % 04/11/2018 %Hba1C Ztr101 Gluc Ave 157 mg/dL 04/11/2018 Lipid Ord30 CHOL 150 mg/dL 04/11/2018 Lipid Ord30 HDL 38.0 mg/dl 04/11/2018 Lipid Ord30 TRIG 203 mg/dL 04/11/2018 Lipid Ord30 LDL 71 mg/dL 04/11/2018 Lipid Ord30 C/HDL 3.9 Ratio 04/11/2018 Vitamin D 25 Oh [id number] VITAMIN D, 25 HYDROXY 48.86 ng/mL Comp Metabolic Bfk920 NA 138 mEq/L 04/11/2018 Comp Metabolic Sux293 K 4.4 mEq/L 04/11/2018 Comp Metabolic Zzg880 CL 101 mEq/L 04/11/2018 Comp Metabolic Slz334 CO2 29.0 mEq/L 04/11/2018 Comp Metabolic Pgz202 ANION GAP 12 04/11/2018 Comp Metabolic Cnv580 GLUCOSE 120 mg/dL 04/11/2018 Comp Metabolic Mie162 Creat 1.2 mg/dL 04/11/2018 Comp Metabolic Pho927 eGFR 47 ml/min/1.73m2 04/11/2018 Comp Metabolic Ura215 BUN 23 mg/dL 04/11/2018 Comp Metabolic Vom521 B/C Ratio 19.7 Ratio 04/11/2018 Comp Metabolic Gqp876 CALCIUM 10.3 mg/dL 04/11/2018 Comp Metabolic Lsi364 ALK PHOS 40 U/L 04/11/2018 Comp Metabolic Nyq956 AST(SGOT) 15 U/L 04/11/2018 Comp Metabolic Odb448 ALT(SGPT) 9 U/L 04/11/2018 Comp Metabolic Lwd312 BILI T 1.0 mg/dL 04/11/2018 Comp Metabolic Oyu321 ALBUMIN 4.3 g/dL 04/11/2018 Comp Metabolic Abx664 TPRO 6.8 g/dL 04/11/2018 Comp Metabolic Rjl874 GLOB 2.5 g/dL 04/11/2018 Comp Metabolic Bda550 A/G Ratio 1.7 Ratio 04/11/2018 Comp Metabolic Jxs110 Osmo 281 mOsmo 04/11/2018 %Hba1C Smj701 % HbA1c 21992-2 6.5 % 12/01/2016 %Hba1C Cin633 Gluc Ave 140 mg/dL 12/01/2016 Lipid Ord30 [...] 31.3 pg 04/12/2016 Cbc With Differential Ord2 [place]% 13.3 % 04/12/2016 Cbc With Differential Ord2 [...] 2.85 K/ul 04/12/2016 Cbc With Differential Ord2 [place] ABS# 1.1 K/ul 04/12/2016 Cbc With Differential Ord2 Eos ABS# 0.1 K/ul 04/12/2016 Cbc With Differential Ord2 Baso ABS# 0.0 K/ul 04/12/2016 Comp Metabolic Xdt429 NA 129 mEq/L 04/12/2016 Comp Metabolic Coi323 K 4.0 mEq/L 04/12/2016 Comp Metabolic Rks788 CL 93 mEq/L 04/12/2016 Comp Metabolic Njb988 CO2 29.0 mEq/L 04/12/2016 Comp Metabolic Wdi192 ANION GAP 11 04/12/2016 Comp Metabolic Bxv971 GLUCOSE 100 mg/dL 04/12/2016 Comp Metabolic Mit679 Creat 1.0 mg/dL 04/12/2016 Comp Metabolic Wna359 eGFR 55 ml/min/1.73m2 04/12/2016 Comp Metabolic Zse852 BUN 19 mg/dL 04/12/2016 Comp Metabolic Pdx680 B/C Ratio 18.8 Ratio 04/12/2016 Comp Metabolic Osy151 CALCIUM 9.3 mg/dL 04/12/2016 Comp Metabolic Zoy596 ALK PHOS 38 U/L 04/12/2016 Comp Metabolic Ahl951 AST(SGOT) 17 U/L 04/12/2016 Comp Metabolic Rhr885 ALT(SGPT) 11 U/L 04/12/2016 Comp Metabolic Tlp207 BILI T 1.0 mg/dL 04/12/2016 Comp Metabolic Vso421 ALBUMIN 4.2 g/dL 04/12/2016 Comp Metabolic Ipt041 TPRO 6.6 g/dL 04/12/2016 Comp Metabolic Chf005 GLOB 2.4 g/dL 04/12/2016 Comp Metabolic Irz036 A/G Ratio 1.8 Ratio 04/12/2016 Comp Metabolic Pbl451 Osmo 261 mOsmo 04/12/2016 Lipid Ord30 CHOL 265 mg/dL 04/12/2016 Lipid Ord30 HDL 42.0 mg/dl 04/12/2016 Lipid Ord30 TRIG 246 mg/dL 04/12/2016 Lipid Ord30 LDL 174 mg/dL 04/12/2016 Lipid Ord30 C/HDL 6.3 Ratio 04/12/2016 Tsh Ord6 hTSH II 2.49 uIU/mL 04/12/2016 Tsh Ord6 hTSH II 1.83 uIU/mL 06/12/2015 Comp Metabolic Ozv720 NA 137 mEq/L 06/12/2015 Comp Metabolic Dca958 K 4.4 mEq/L 06/12/2015 Comp Metabolic Mks781 CL 103 mEq/L 06/12/2015 Comp Metabolic Tqc657 CO2 27.0 mEq/L 06/12/2015 Comp Metabolic Tlw330 ANION GAP 11 06/12/2015 Comp Metabolic Pej822 GLUCOSE 87 mg/dL 06/12/2015 Comp Metabolic Gro962 Creat 1.3 mg/dL 06/12/2015 Comp Metabolic Joa749 eGFR 43 ml/min/1.73m2 06/12/2015 Comp Metabolic Cnv838 BUN 32 mg/dL 06/12/2015 Comp Metabolic Mbh728 B/C Ratio 25.4 Ratio 06/12/2015 Comp Metabolic Hib017 CALCIUM 9.5 mg/dL 06/12/2015 Comp Metabolic Icq850 ALK PHOS 36 U/L 06/12/2015 Comp Metabolic Wxr393 AST(SGOT) 16 U/L 06/12/2015 Comp Metabolic Iny788 ALT(SGPT) 17 U/L 06/12/2015 Comp Metabolic Etx110 BILI T 1.0 mg/dL 06/12/2015 Comp Metabolic Zsp608 ALBUMIN 4.1 g/dL 06/12/2015 Comp Metabolic Qvj927 TPRO 6.5 g/dL 06/12/2015 Comp Metabolic Eil208 GLOB 2.5 g/dL 06/12/2015 Comp Metabolic Qcu497 A/G Ratio 1.7 Ratio 06/12/2015 Comp Metabolic Hno964 Osmo 280 mOsmo 06/12/2015 Lipid Ord30 CHOL [...] 30.6 pg 06/12/2015 Cbc With Differential Ord2 [place]% 11.0 % 06/12/2015 Cbc With Differential Ord2 [...] 1.96 K/ul 06/12/2015 Cbc With Differential Ord2 [place] ABS# 0.9 K/ul 06/12/2015 Cbc With Differential [...] 30.3 pg 03/12/2015 Cbc With Differential Ord2 [place]% 10.7 % 03/12/2015 Cbc With Differential Ord2 [...] 2.00 K/ul 03/12/2015 Cbc With Differential Ord2 [place] ABS# 1.0 K/ul 03/12/2015 Cbc With Differential Ord2 Eos ABS# 0.1 K/ul 03/12/2015 Cbc With Differential Ord2 Baso ABS# 0.0 K/ul 03/12/2015 Cbc With Differential Ord2 New Analyzer Notice Please note new ref ranges starting 03-11-2015 due to implemntation of new five part differential hematolgy analyzer. 03/12/2015 Comp Metabolic Gzb945 NA 139 mEq/L 03/12/2015 Comp Metabolic Dzu108 K 4.2 mEq/L 03/12/2015 Comp Metabolic Tak954 CL 101 mEq/L 03/12/2015 Comp Metabolic Qlf491 CO2 28.0 mEq/L 03/12/2015 Comp Metabolic Ypg080 ANION GAP 14 03/12/2015 Comp Metabolic Nje956 GLUCOSE 78 mg/dL 03/12/2015 Comp Metabolic Qmm165 Creat 1.1 mg/dL 03/12/2015 Comp Metabolic Pwh238 eGFR 51 ml/min/1.73m2 03/12/2015 Comp Metabolic Jhs757 BUN 17 mg/dL 03/12/2015 Comp Metabolic Shy310 B/C Ratio 15.6 Ratio 03/12/2015 Comp Metabolic Bwr870 CALCIUM 9.4 mg/dL 03/12/2015 Comp Metabolic Spf769 ALK PHOS 46 U/L 03/12/2015 Comp Metabolic Ctg426 AST(SGOT) 16 U/L 03/12/2015 Comp Metabolic Nqt016 ALT(SGPT) 12 U/L 03/12/2015 Comp Metabolic Hwg617 BILI T 0.8 mg/dL 03/12/2015 Comp Metabolic Mmv663 ALBUMIN 4.1 g/dL 03/12/2015 Comp Metabolic Mzm102 TPRO 6.6 g/dL 03/12/2015 Comp Metabolic Sva937 GLOB 2.6 g/dL 03/12/2015 Comp Metabolic Aux647 A/G Ratio 1.6 Ratio 03/12/2015 Comp Metabolic Nnv952 Osmo 278 mOsmo 03/12/2015 Lipid Ord30 CHOL [...] hTSH II 3.15 uIU/mL 12/01/2014 Comp Metabolic Idq733 NA 132 mEq/L 12/01/2014 Comp Metabolic Bfy226 K 4.4 mEq/L 12/01/2014 Comp Metabolic Kos872 CL 99 mEq/L 12/01/2014 Comp Metabolic Tih139 CO2 27.0 mEq/L 12/01/2014 Comp Metabolic Lfo483 ANION GAP 10 12/01/2014 Comp Metabolic Glv230 GLUCOSE 86 mg/dL 12/01/2014 Comp Metabolic Huu624 Creat 1.2 mg/dL 12/01/2014 Comp Metabolic Rlx060 eGFR 46 ml/min/1.73m2 12/01/2014 Comp Metabolic Xdy650 BUN 32 mg/dL 12/01/2014 Comp Metabolic Zxl313 B/C Ratio 27.1 Ratio 12/01/2014 Comp Metabolic Ahv250 CALCIUM 9.4 mg/dL 12/01/2014 Comp Metabolic Lel273 ALK PHOS 35 U/L 12/01/2014 Comp Metabolic Mtx187 AST(SGOT) 14 U/L 12/01/2014 Comp Metabolic Bmm262 ALT(SGPT) 13 U/L 12/01/2014 Comp Metabolic Mrl341 BILI T 0.8 mg/dL 12/01/2014 Comp Metabolic Ovz190 ALBUMIN 4.0 g/dL 12/01/2014 Comp Metabolic Njv527 TPRO 6.8 g/dL 12/01/2014 Comp Metabolic Lsg675 GLOB 2.8 g/dL 12/01/2014 Comp Metabolic Jyd679 A/G Ratio 1.4 Ratio 12/01/2014 Comp Metabolic Djn418 Osmo 271 mOsmo 12/01/2014 Review of Systems [...] clear 05/22/2018 None Full Exam - General 1995 Ears/Nose/Throat otoscopic exam Overall: tympanic membranes clear [...] normal 04/11/2018 None Full Exam - General 1995 Ears/Nose/Throat otoscopic exam Overall: external auditory canals clear 04/11/2018 None Full Exam - General 1994 Ears/Nose/Throat otoscopic exam Overall: tympanic membranes clear 04/11/2018 None Full Exam - General 1995 Ears/Nose/Throat internal nose Drainage: left 04/11/2018 None [...] hygiene 11/13/2017 None Full Exam - General 1995 Eyes conjunctiva /eyelids Overall: conjunctiva clear 11/13/2017 [...] benign 03/30/2016 None Full Exam - General 1995 Ears/Nose/Throat oral cavity/pharynx/larynx Overall: no masses 03/30/2016 [...] FLU VACC PRSV FREE INC ANTIG CPT-4: 12025 11/13/2017 ADMIN INFLUENZA VIRUS VAC CPT-4: G0008 11/13/2017 TRIAMCINOLONE ACET INJ NOS CPT-4: J3301 07/28/2017 PPPS, SUBSEQ VISIT CPT -4: G0439 02/08/2017 URINALYSIS NONAUTO W/O SCOPE CPT-4: 79983 08/15/2016 PPPS, SUBSEQ VISIT CPT -4: G0439 02/01/2016 TRIAMCINOLONE ACET INJ NOS CPT-4: J3301 12/18/2015 ADMIN INFLUENZA VIRUS VAC CPT-4: G0008 11/26/2015 FLU VACC 4 GISELA 3 YRS PLUS IM Formatting Model/CDA Sections, Assigned to/Malina Mazariegos SNOMED CT: 57583979 CPT-4: 59512Evlqmir 11/26/2015 URINALYSIS NONAUTO W/O SCOPE CPT-4: 94237 11/20/2015 URINALYSIS NONAUTO W/O SCOPE CPT-4: 33914 11/13/2015 IMMUNIZATION ADMIN CPT -4: 64529 12/01/2014 FLU VACC 4 GISELA 3 YRS PLUS IM Formatting Model/CDA Sections, Assigned to/Malina Mazariegos SNOMED CT: 93929754 CPT-4: 30068Kofefvd 12/01/2014 Vital Signs Date Vital 05/22/2018 Blood Pressure 1: 128/50 Code : 8480-6 BMI: 24.6 Code : 43103-0 Heart Rate 1 : 76 bpm Height: 5'1" SpO2: 98% Weight: 130 lbs 04/11/2018 Blood Pressure 1: 142/56 Code : 8480-6 BMI: 25.1 Code : 88862-7 Heart Rate 1 : 68 bpm Height: 5'1" SpO2: 96% Weight: 133 lbs 02/06/2018 Blood Pressure 1: 142/60 Code : 8480-6 BMI: 25.3 Code : 88752-2 Heart Rate 1 : 68 bpm Height: 5'1" SpO2: 99% Temperature: 37.0 (C) / 98.6 (F) Weight: 134 lbs 12/08/2017 Blood Pressure 1: 140/52 Code : 8480-6 BMI: 25.5 Code : 47216-7 Heart Rate 1 : 77 bpm Height: 5'1" SpO2: 96% Temperature: 36.6 (C) / 97.9 (F) Weight: 135 lbs 11/13/2017 Blood Pressure 1: 134/54 Code : 8480-6 BMI: 24.8 Code : 05146-9 Heart Rate 1 : 73 bpm Height: 5'1" SpO2: 98% Weight: 131 lbs 08/29/2017 Blood Pressure 1: 162/64 Code : 8480-6 BMI: 24.9 Code : 95808-8 Heart Rate 1 : 61 bpm Height: 5'1" SpO2: 96% Weight: 132 lbs 07/28/2017 Blood Pressure 1: 148/62 Code : 8480-6 BMI: 25.1 Code : 83640-9 Heart Rate 1 : 67 bpm Height: 5'1" SpO2: 99% Temperature: 36.4 (C) / 97.5 (F) Weight: 133 lbs 06/20/2017 Blood Pressure 1: 140/52 Code : 8480-6 BMI: 25.3 Code : 93875-5 Heart Rate 1 : 64 bpm Height: 5'1" SpO2: 98% Weight: 134 lbs 05/26/2017 Blood Pressure 1: 140/56 Code : 8480-6 BMI: 25.7 Code : 54104-1 Heart Rate 1 : 74 bpm Height: 5'1" SpO2: 95% Weight: 136 lbs 04/24/2017 Blood Pressure 1: 140/68 Code : 8480-6 BMI: 24.6 Code : 07547-8 Heart Rate 1 : 67 bpm Height: 5'1" SpO2: 97% Weight: 130 lbs 02/08/2017 Blood Pressure 1: 134/76 Code : 8480-6 BMI: 24.9 Code : 35447-9 Heart Rate 1 : 67 bpm Height: 5'1" SpO2: 98% Waist Measure (cm): 43794 cm Weight: 132 lbs 12/22/2016 Blood Pressure 1: 156/80 Code : 8480-6 BMI: 24.2 Code : 69984-0 Heart Rate 1 : 65 bpm Height: 5'1" SpO2: 98% Weight: 128 lbs 12/16/2016 Blood Pressure 1: 138/62 Code : 8480-6 BMI: 23.8 Code : 33009-9 Heart Rate 1 : 63 bpm Height: 5'1" SpO2: 98% Weight: 126 lbs 08/15/2016 Blood Pressure 1: 130/60 Code : 8480-6 BMI: 25.3 Code : 31399-8 Heart Rate 1 : 72 bpm Height: 5'1" SpO2: 95% Weight: 134 lbs 08/02/2016 Blood Pressure 1: 160/62 Code : 8480-6 BMI: 25.3 Code : 62810-2 Heart Rate 1 : 67 bpm Height: 5'1" SpO2: 97% Weight: 134 lbs 07/21/2016 Blood Pressure 1: 148/66 Code : 8480-6 BMI: 25.9 Code : 79035-3 Heart Rate 1 : 71 bpm Height: 5'1" SpO2: 97% Temperature: 36.8 (C) / 98.2 (F) Weight: 137 lbs 07/01/2016 Blood Pressure 1: 142/72 Code : 8480-6 BMI: 26.5 Code : 87593-8 Heart Rate 1 : 68 bpm Height: 5'1" SpO2: 94% Weight: 140 lbs 05/16/2016 Blood Pressure 1: 162/76 Code : 8480-6 Blood Pressure 1: 138/68 Code: 8480-6 BMI: 25.7 Code: 91830-1 Heart Rate 1: 58 bpm Height: 5'1" SpO2: 98% Weight: 136 lbs 04/06/2016 Blood Pressure 1: 162/72 Code : 8480-6 Blood Pressure 1: 138/74 Code: 8480-6 BMI: 25.7 Code: 35341-4 Heart Rate 1: 75 bpm Height: 5'1" SpO2: 97% Weight: 136 lbs 03/30/2016 Blood Pressure 1: 188/80 Code : 8480-6 BMI: 26.3 Code : 00877-9 Heart Rate 1 : 75 bpm Height: 5'1" SpO2: 98% Weight: 139 lbs 02/01/2016 Blood Pressure 1: 140/72 Code : 8480-6 BMI: 25.3 Code : 61094-3 Heart Rate 1 : 65 bpm Height: 5'1" SpO2: 97% Waist Measure (cm): 84 cm Weight: 134 lbs 01/25/2016 Blood Pressure 1: 140/74 Code : 8480-6 BMI: 25.1 Code : 83212-9 Heart Rate 1 : 66 bpm Height: 5'1" SpO2: 98% Weight: 133 lbs 12/24/2015 Blood Pressure 1: 142/66 Code : 8480-6 BMI: 24.9 Code : 68422-6 Heart Rate 1 : 54 bpm Height: 5'1" SpO2: 97% Weight: 132 lbs 12/18/2015 Blood Pressure 1: 152/62 Code : 8480-6 BMI: 25.5 Code : 15089-3 Heart Rate 1 : 66 bpm Height: 5'1" SpO2: 96% Weight: 135 lbs 12/11/2015 Blood Pressure 1: 136/54 Code : 8480-6 Heart Rate 1: 72 bpm SpO2: 98% Weight: 137 lbs 11/26/2015 Blood Pressure 1: 142/70 Code : 8480-6 BMI: 25.3 Code : 89338-6 Heart Rate 1 : 64 bpm Height: 5'1" SpO2: 97% Weight: 134 lbs 11/20/2015 Blood Pressure 1: 154/70 Code : 8480-6 Heart Rate 1: 65 bpm SpO2: 98% 10/23/2015 Blood Pressure 1: 138/62 Code : 8480-6 Heart Rate 1: 55 bpm SpO2: 98% 10/21/2015 Blood Pressure 1: 142/68 Code : 8480-6 BMI: 25.7 Code : 93720-9 Heart Rate 1 : 73 bpm Height: 5'1" SpO2: 98% Weight: 136 lbs 07/15/2015 Blood Pressure 1: 130/60 Code : 8480-6 BMI: 26.6 Code : 73390-4 Heart Rate 1 : 70 bpm Height: 5'1" SpO2: 97% Weight: 141 lbs 06/15/2015 Blood Pressure 1: 118/64 Code : 8480-6 BMI: 24.9 Code : 57446-5 Heart Rate 1 : 66 bpm Height: 5'1" SpO2: 99% Weight: 132 lbs 06/05/2015 Blood Pressure 1: 142/60 Code : 8480-6 Blood Pressure 1: 135/58 Code: 8480-6 Heart Rate 1: 64 bpm SpO2: 99% 05/19/2015 Blood Pressure 1: 146/60 Code : 8480-6 BMI: 27.1 Code : 15532-9 Heart Rate 1 : 66 bpm Height: 5'1" SpO2: 97% Weight: 143 lbs 8 oz 04/24/2015 Blood Pressure 1: 148/58 Code : 8480-6 BMI: 25.9 Code : 57144-9 Heart Rate 1 : 61 bpm Height: 5'1" SpO2: 98% Weight: 137 lbs 03/12/2015 Blood Pressure 1: 140/72 Code : 8480-6 BMI: 25.1 Code : 71644-7 Heart Rate 1 : 68 bpm Height: 5'1" SpO2: 98% Weight: 133 lbs 01/12/2015 Blood Pressure 1: 146/60 Code : 8480-6 BMI: 25.7 Code : 57204-6 Heart Rate 1 : 48 bpm Height: 5'1" SpO2: 97% Weight: 136 lbs 12/11/2014 Blood Pressure 1: 144/56 Code : 8480-6 Blood Pressure 1: 125/65 Code: 8480-6 BMI: 25.1 Code: 68022-5 Heart Rate 1: 56 bpm Height: 5'1" SpO2: 96% Weight: 133 lbs 12/01/2014 Blood Pressure 1: 136/60 Code : 8480-6 Heart Rate 1: 56 bpm SpO2: 96% Weight: 131 lbs 5 oz 08/14/2014 Blood Pressure 1: 132/72 Code : 8480-6 BMI: 25.5 Code : 90361-0 Heart Rate 1 : 73 bpm Height: 5'1" SpO2: 94% Weight: 135 lbs Functional Status No Functional Status data History of Present Illness Symptom Name Status Result Effective Date Notes Prior Treatments surgery 05/22/2018 None Procedure to [...] data Encounters Encounter Performer Location Codes Date () 61569 EST. PATIENT, LEVEL III Diagnosis: Essential (primary) hypertension[ICD10: I10] Diagnosis: Unilateral primary osteoarthritis, left knee[ICD10: M17.12] Berenice Cohen MD , [facility] CPT-4: 58830 05/22/2018 ([id number]) 17500 EST. PATIENT, LEVEL IV Diagnosis: Essential (primary) hypertension[ICD10: I10] Diagnosis: Other abnormal glucose[ICD10: R73.09] Diagnosis: Mixed hyperlipidemia[ICD10: E78.2] Diagnosis: Vitamin D deficiency, unspecified[ICD10: E55.9] Berenice Cohen MD, [facility] CPT-4: 46978 04/11/2018 83880 EST. PATIENT, LEVEL IV Diagnosis: Other acute sinusitis[ICD10: J01.80] Diagnosis: Other allergic rhinitis[ICD10: J30.89] Evelyn Cohen MD, [facility] CPT-4: 31479 02/06/2018 73795 EST. PATIENT, LEVEL III Diagnosis: Other allergic rhinitis[ICD10: J30.89] Diagnosis: Other acute sinusitis[ICD10: J01.80] Evelyn Cohen MD, [facility] CPT-4: 51362 12/08/2017 ([id number]) 67397 EST. PATIENT, LEVEL IV Diagnosis: Essential (primary) hypertension[ICD10: I10] Diagnosis: Chronic maxillary sinusitis[ICD10: J32.0] Diagnosis: Mixed hyperlipidemia[ICD10: E78.2] Diagnosis: Other abnormal glucose[ICD10: R73.09] Berenice Cohen MD, [facility] CPT-4: 56111 11/13/2017 ([id number]) 40675 EST. PATIENT, LEVEL III Diagnosis: Tinea corporis[ICD10: B35.4] Diagnosis: Essential (primary) hypertension[ICD10: I10] Doris Cohen MD, [facility] CPT-4: 95121 08/29/2017 ([id number]) 90378 EST. PATIENT, LEVEL III Diagnosis: Acute recurrent maxillary sinusitis[ICD10: J01.01] Diagnosis: Other allergic rhinitis[ICD10: J30.89] Doris Cohen MD, [facility] CPT-4: 53045 07/28/2017 70919 EST. PATIENT, LEVEL IV Diagnosis: Other acute sinusitis[ICD10: J01.80] Diagnosis: Other allergic rhinitis[ICD10: J30.89] Diagnosis: Otalgia, bilateral[ICD10: H92.03] Diagnosis: Pain in right knee[ICD10: M25.561] Diagnosis: Pain in left knee[ICD10: M25.562] Evelyn Cohen MD, [facility] CPT -4: 52387 06/20/2017 28112 EST. PATIENT, LEVEL IV Diagnosis: Other acute sinusitis[ICD10: J01.80] Diagnosis: Other allergic rhinitis[ICD10: J30.89] Diagnosis: Gastro-esophageal reflux disease without esophagitis[ICD10: K21.9] Evelyn Cohen MD, [facility] CPT-4: 37052 05/26/2017 43734 EST. PATIENT, LEVEL III Diagnosis: Essential (primary) hypertension[ICD10: I10] Evelyn Cohen MD, [facility] CPT-4: 46632 04/24/2017 ([id number]) 92868 EST. PATIENT, LEVEL IV Diagnosis: Essential (primary) hypertension[ICD10: I10] Diagnosis: Other abnormal glucose[ICD10: R73.09] Diagnosis: Mixed hyperlipidemia[ICD10: E78.2] Berenice Cohen MD, [facility] CPT-4: 60384 12/22/2016 23518 EST. PATIENT, LEVEL IV Diagnosis: Other acute sinusitis[ICD10: J01.80] Diagnosis: Other allergic rhinitis[ICD10: J30.89] Evelyn Cohen MD, [facility] CPT-4: 87623 12/16/2016 ([id number]) 63587 EST. PATIENT, LEVEL IV Diagnosis: Essential (primary) hypertension[ICD10: I10] Diagnosis: Mixed hyperlipidemia[ICD10: E78.2] Diagnosis: Dysuria[ICD10: R30.0] Berenice Cohen MD, [facility] CPT-4: 72494 08/15/2016 38063 EST. PATIENT, LEVEL III Diagnosis: Other acute sinusitis[ICD10: J01.80] Diagnosis: Other allergic rhinitis[ICD10: J30.89] Diagnosis: Otalgia, bilateral[ICD10: H92.03] Evelyn Cohen MD, [facility] CPT -4: 51707 08/02/2016 ([id number]) 46152 EST. PATIENT, LEVEL III Diagnosis: Acute recurrent maxillary sinusitis[ICD10: J01.01] Diagnosis: Otalgia, right ear[ICD10: H92.01] Doris Cohen MD, [facility] CPT-4: 92350 07/21/2016 08443 EST. PATIENT, LEVEL III Diagnosis: Dysuria[ICD10: R30.0] Diagnosis: Other allergic rhinitis[ICD10: J30.89] Evelyn Cohen MD, [facility] CPT-4: 06284 07/01/2016 ([id number]) 75520 EST. PATIENT, LEVEL IV Diagnosis: Essential (primary) hypertension[ICD10: I10] Diagnosis: Mixed hyperlipidemia[ICD10: E78.2] Berenice Cohen MD, [facility] CPT-4: 37384 05/16/2016 42081 EST. PATIENT, LEVEL III Diagnosis: Mixed hyperlipidemia[ICD10: E78.2] Diagnosis: Essential (primary) hypertension[ICD10: I10] Diagnosis: Laceration without foreign body of left hand, subsequent encounter[ ICD10: S61.412D] Evelyn Cohen MD, [facility] CPT-4: 58664 04/06/2016 ([id number]) 02460 EST. PATIENT, LEVEL III Diagnosis: Essential (primary) hypertension[ICD10: I10] Berenice Cohen MD [facility] CPT-4: 20644 03/30/2016 ([id number]) 88692 EST. 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 PATIENT, LEVEL III Diagnosis: Essential (primary) hypertension[ICD10: I10] Berenice Cohen MD [facility] CPT-4: 81790 12/24/2015 14901 EST. PATIENT, LEVEL III Diagnosis: Other acute sinusitis[ICD10: J01.80] Diagnosis: Other allergic rhinitis[ICD10: J30.89] Evelyn Cohen MD [facility] CPT-4: 36624 12/18/2015 ([id number]) Miscellaneous no charge Diagnosis: Essential (primary) hypertension[ICD10: I10] Evelyn Cohen MD [facility] CPT-4: 53555 12/11/2015 ([id number]) 90006 EST. PATIENT, LEVEL IV Diagnosis: Essential (primary) hypertension[ICD10: I10] Diagnosis: Other abnormal glucose[ICD10: R73.09] Diagnosis: Encounter for immunization[ICD10: Z23] Berenice Cohen MD [facility] CPT-4: 05974 11/26/2015 ([id number]) Miscellaneous no charge Diagnosis: Bitten by dog, initial encounter[ICD10: W54.0XXA] Evelyn Cohen MD [facility] CPT-4: 22707 10/29/2015 ([id number]) Miscellaneous no charge Diagnosis: Essential (primary) hypertension[ICD10: I10] Diagnosis: Bitten by dog, initial encounter[ICD10: W54.0XXA] Evelyn Cohen MD [facility] CPT-4: 29239 10/23/2015 76653 EST. PATIENT, LEVEL III Diagnosis: Cellulitis of face[ICD10: L03.211] Diagnosis: Bitten by dog, initial encounter[ICD10: W54.0XXA] Evelyn Cohen MD [facility] CPT-4: 07858 10/21/2015 ([id number]) Miscellaneous no charge Diagnosis: Essential (primary) hypertension[ICD10: I10] Evelyn Cohen MD, [facility] CPT-4: 25661 07/15/2015 ([id number]) 13924 EST. PATIENT, LEVEL IV Diagnosis: Essential (primary) hypertension[ICD10: I10] Diagnosis: Mixed hyperlipidemia[ICD10: E78.2] Diagnosis: Dry mouth, unspecified[ICD10: R68.2] Berenice Cohen MD, [facility] CPT-4: 57458 06/15/2015 ([id number]) Miscellaneous no charge Diagnosis: Essential (primary) hypertension[ICD10: I10] Doris Cohen MD, [facility] CPT-4: 17021 06/05/2015 ([id number]) 43126 EST. PATIENT, LEVEL IV Diagnosis: Mammographic microcalcification found on diagnostic imaging of breast [ICD10: R92.0] Diagnosis: Edema, unspecified[ICD10: R60.9] Diagnosis: Essential (primary) hypertension[ICD10: I10] Berenice Cohen MD, [facility] CPT-4: 43771 05/19/2015 22064 EST. PATIENT, LEVEL IV Diagnosis: Other acute sinusitis[ICD10: J01.80] Diagnosis: Acute nasopharyngitis [common cold][ICD10: J00] Diagnosis: Other allergic rhinitis[ICD10: J30.89] Diagnosis: Localized edema[ICD10: R60.0] Diagnosis: Mixed hyperlipidemia[ICD10: E78.2] Evelyn Cohen MD, [facility] CPT-4: 53458 04/24/2015 ([id number]) 69213 EST. PATIENT, LEVEL IV Diagnosis: Essential (primary) hypertension[ICD10: I10] Diagnosis: Abscess of liver[ICD10: K75.0] Diagnosis: Anemia, unspecified[ICD10: D64.9] Berenice Cohen MD, [facility] CPT-4: 25617 03/12/2015 26853 EST. PATIENT, LEVEL IV Diagnosis: Essential (primary) hypertension[ICD10: I10] Diagnosis: Candidal stomatitis[ICD10: B37.0] Diagnosis: Pain in unspecified knee[ICD10: M25.569] Diagnosis: Edema, unspecified[ICD10: R60.9] Evelyn Cohen MD, [facility] CPT- 4: 18825 01/12/2015 ([id number]) 17620 EST. PATIENT, LEVEL III Diagnosis: Pain in right foot[ICD10: M79.671] [facility] CPT-4: 10122 12/11/2014 ([id number]) 23761 EST. PATIENT, LEVEL IV Diagnosis: Abscess of liver[ICD10: K75.0] Diagnosis: Hypo-osmolality and hyponatremia[ICD10: E87.1] Diagnosis: Essential (primary) hypertension[ICD10: I10] Diagnosis: VACCIN FOR INFLUENZA[ICD10: Z23] Berenice Cohen MD, [facility] CPT-4: 84333 12/01/2014 ([id number]) OFFICE VISIT, NEW - LEVEL 4 Diagnosis: ESSENTIAL HYPERTENSION[ICD9: 401.9] Diagnosis: Chronic maxillary sinusitis[ICD9: 473.0] Berenice Cohen MD, [facility] CPT-4: 84424 08/14/2014 Plan of Care Planned Activity Notes Codes Status Date Appointment: [facility] [place] (15 min) Moderate 05/28/2018 Referral: Eduardo [...] falling. 05/22/2018 Appointment: [phone] [place] (30 min) Complex 05/22/2018 Patient Education: Patient Medication Summary Completed 05/22/2018 Care Plan: Referral Order SNOMED-CT : [id number] Pending 05/22/2018 Visit Plan: Hypertension - well [...] medications. 04/11/2018 Appointment: [phone] [facility] (15 min) Moderate 04/11/2018 Patient Education: Patient Medication Summary Completed 04/11/2018 Patient Education: Hypertension Completed 04/11/2018 Patient Education: Cholesterol Management Completed 04/11/2018 Patient Education: Patient Medication Summary Completed 03/30/2018 Care Plan: Comp Metabolic Pending 03/30/2018 Care Plan: Cbc With Differential Pending 03/30/2018 Care Plan: Tsh Pending 03/30/2018 Care Plan: Lipid Pending 03/30/2018 Appointment: Berenice Cohen WPtel: [phone] [facility] (15 min) Moderate 03/28/2018 Appointment: [phone] [facility] (15 min) Moderate 03/19/2018 Visit Plan: Sinusitis [...] allergy spray. 02/06/2018 Appointment: Evelyn West WPtel: [address] [place] [address] (15 min) Moderate 02/06/2018 Patient Education: Patient Medication Summary Completed 02/06/2018 Patient Education: Patient Medication Summary Completed 12/29/2017 Care Plan: %Hba1C [facility] : 53255-6 Pending 12/11/2017 Visit Plan: Sinusitis - Pt [...] allergy spray. 12/08/2017 Appointment: Evelyn West WPtel: [address] [place] [address] (15 min) Moderate 12/08/2017 Patient Education: Patient [...] shot today 11/13/2017 Appointment: Berenice Cohen WPtel: [facility]3 [facility] (15 min) Moderate 11/13/2017 Patient Education: Patient Medication Summary Completed 11/13/2017 Patient Education: Cholesterol Management Completed 11/13/2017 Visit Plan: Tinea-rx sent to patient's pharmacy and instructed on use-keep groin clean/dry -call if symptoms do not resolve or if any worse HTN-elevated today-monitor and home and call if continues to be elevated 08/29/2017 Appointment: Doris Sheffield WPtel: [address] [place], [place] [phone] (15 min) Moderate 08/29/2017 Patient Education: Patient [...] any worse 07/28/2017 Appointment: Doris Sheffield WPtel: [phone] (30 min) Complex 07/28/2017 Patient Education: Patient [...] not improve. 06/20/2017 Appointment: Evelyn West WPtel: [address] [place], [place] [phone] (15 min) Moderate 06/20/2017 Patient Education: Patient [...] improving. 05/26/2017 Appointment: [facility] West [phone] (15 min) Moderate 05/26/2017 Patient Education: Patient [...] concerns. 04/24/2017 Appointment: Evelyn West [facility]Ptel[phone] [facility] (30 min) Complex 04/24/2017 Patient Education: Patient [...] surrogate. 02/08/2017 Appointment: Evelyn West WPtel[phone] [facility] [facility] - Annual Wellness Visit 02/08/2017 Patient [...] vaccine today 12/22/2016 Appointment: Berenice Cohen WPtel: [phone] [facility] (15 min) Moderate 12/22/2016 Patient Education: Patient [...] spray. 12/16/2016 Appointment: Evelyn West WPtel: [phone] [facility] (30 min) Complex 12/16/2016 Patient Education: Patient Medication Summary Completed 12/16/2016 Appointment: Berenice Cohen WPtel: [phone] [facility] (15 min) Moderate 11/15/2016 Visit Plan: [...] on carbohydrates. 08/15/2016 Appointment: [phone] [facility] (15 min) Moderate 08/15/2016 Patient Education: Patient Medication Summary Completed 08/15/2016 Appointment: Doris Sheffield WPtel: [phone] [place] (15 min) Moderate 08/05/2016 Visit Plan: Allergies [...] improvement. 08/02/2016 Appointment: Evelyn West WPtel: [phone] [facility] (30 min) Complex 08/02/2016 Patient Education: Patient [...] and to have ear flushed 07/21/2016 Appointment: SheffieldDoris WPtel: [phone] [phone] (15 min) Moderate 07/21/2016 Patient Education: Patient [...] nightly. 05/16/2016 Appointment: [facility] [phone] [facility] (15 min) Moderate 05/16/2016 Patient Education: [...] or concerns. 04/06/2016 Appointment: Evelyn West WPtel: [address] [place], [place] [phone] (10 min) Simple 04/06/2016 Patient Education: Patient [...] twice daily. 03/30/2016 Appointment: Berenice Cohen WPtel: [facility]5 [facility] [place] (15 min) Moderate 03/30/2016 Patient Education: Patient Medication Summary Completed 03/30/2016 Appointment: Berenice Cohen WPtel: [facility]5 [facility] (15 min) Moderate 03/24/2016 Visit Plan: [...] care surrogate. 02/01/2016 Appointment: Evelyn West WPtel: [facility]9 [facility] [place] [address] - Annual Wellness Visit 02/01/2016 Patient Education: Patient Medication Summary Completed 02/01/2016 Visit Plan: Apthous ulcer - rx for acyclovir 800mg tid x7 days Sample of Voltaren gel to use on knees tid prn 01/25/2016 Appointment: Berenice Cohen WPtel: [facility]1 [facility] (15 min) Moderate 01/25/2016 Patient Education: Patient Medication Summary Completed 01/25/2016 Visit Plan: Hypertension - well controlled - continue with current medications, continue with no added salt diet. Pt has been encouraged to exercise daily. The pt has been advised to call the office if there are any acute concerns about change in blood pressure readings at home. 12/24/2015 Appointment: Berenice Cohen WPtel: [facility] (15 min) Moderate 12/24/2015 Patient Education: [...] improvement. 12/18/2015 Appointment: Doris Sheffield WPtel: [phone] [phone] (15 min) Moderate 12/18/2015 Patient Education: [...] meal - 11/26/2015 Appointment: Berenice Cohen WPtel: [facility]3 [facility] (15 min) Moderate 11/26/2015 Patient Education: Patient [...] in pain. 10/21/2015 Appointment: Doris Sheffield WPtel: [phone] [phone] [place] (15 min) Moderate 10/21/2015 Patient Education: [...] spray 06/15/2015 Appointment: Berenice Cohen WPtel: [phone] [facility] (15 min) Moderate 06/15/2015 Patient Education: Patient Medication Summary Completed 06/15/2015 Patient Education: Patient Medication Summary Completed 06/12/2015 Appointment: Berenice Cohen WPtel: [phone] [facility] (15 min) Moderate 06/11/2015 Appointment: Nurse [...] day 03/12/2015 Appointment: Berenice Cohen WPtel: [address] [place], [place] [address] (15 min) Moderate 03/12/2015 Patient Education: Patient [...] appointment with then soon. Pt to try [employer] [place] rub on the knees to help reduce [...] is sore 12/11/2014 Appointment: Berenice Cohen WPtel: [address] [place], [place] [phone] (15 min) Moderate 12/11/2014 Patient Education: Patient [...] not improving. 12/01/2014 Appointment: Berenice Cohen WPtel: [address] [place] [address] [place] (15 min) Moderate 12/01/2014 Patient Education: Patient Medication Summary Completed 12/01/2014 Patient Education: Hypertension Completed 12/01/2014 Appointment: Berenice Cohen WPtel: [address] [place] [address] (15 min) Moderate 09/15/2014 Visit Plan: Hypertension [...] if symptoms do not improve. 08/14/2014 Appointment: VickiBerenice WPtel: [facility] [place] ([place] New Patient 08/14/2014 Patient Education: Patient Medication Summary Completed 08/14/2014 Patient Education: Hypertension Completed 08/14/2014 Referral: Eduardo Suggs Referral Appointment Requested Instructions Comment change the amlodipine to 5mg at night [...] foot where it is sore [employer] floral merchandiser will contact you for a colon screen test - it is a colon cancer screening that you will do at home and send in to the floral merchandiser. . No fracture of foot - recommended [...] TWO hours after a meal - try [place] on your knee. Decrease Salt in diet. [...] appointment with then soon. Pt to try [employer] [place] rub on the knees to help reduce [...]
--- OUTSIDE RECORDS SUMMARY | 2018-06-30 14:14 | XMS REPORT | CCD ---
Author Author Berenice Cohen Organization Berenice Cohen MD, [facility] Address [address] [place] [address] Phone Care Team Providers Care Configuration Analyst Name Role Phone PP Unavailable CCM Unavailable Summary Purpose Interface Exchange Insurance Providers Payer name Policy type / Coverage type Covered republican ID Effective Begin Date Effective End Date Imaging Advantage Commercial Insurance [id number] Unknown Unknown Family history Son Diagnosis Age [...] Unknown Retired 08/14/[address]: 074630712 Never smoker 08/14/[address]: 054047117 Never drinks alcohol 08/14/2014 Allergies, Adverse Reactions, Alerts Substance Reaction Codes Entered Date Inactivated Date Status AUGMENTIN hives, RxNorm: 706932 08/14/2014 No Inactive Date Active [id number] REDUCTASE INHIBITORS myalgias, Unknown 2015 No Inactive [...] Start Date Stop Date Status Fill Instructions Carafate 1 gram tablet RxNorm: 150338 1 Tablet(s) PO QID as needed 05/25/2018 06/03/2018 Active Carafate 1 gram tablet RxNorm: 264397 1 Tablet(s) PO QID as needed 05/25/2018 05/24/2018 Inactive Zithromax Z-Dylan 250 mg tablet RxNorm: 881092 1 Tablet(s) PO UD 05/02/2018 No Stop Date Active glipizide 5 mg tablet RxNorm: 395889 1 Tablet(s) PO BID 201808/15/2018 Active glipizide 5 mg tablet RxNorm: 622138 1 Tablet(s) PO BID 201804/17/2018 Inactive Xanax 0.25 mg tablet RxNorm: 903630 1 Tablet(s) PO TID as needed anxiety 04/11/2018 06/09/2018 Active Zithromax Z-Dylan 250 mg tablet RxNorm: 713342 1 Tablet(s) PO UD 02/06/2018 04/17/2018 Inactive Zyrtec 10 mg tablet RxNorm: 3462519 1 Tablet(s) PO daily 12/0801/06/2018 Inactive Zithromax Z-Dylan 250 mg tablet RxNorm: 883228 1 Tablet(s) PO UD 12/08/2017 02/05/2018 Inactive Lipitor 10 mg tablet RxNorm: 250565 1 Tablet(s) PO QHS 201706/21/2018 Active Lipitor 10 mg tablet RxNorm: 148650 TAKE 1 TABLET BY MOUTH EVERY DAY AT BEDTIME 11/24/2017 No Stop Date Active lisinopril 10 mg tablet RxNorm: 658325 1 Tablet(s) PO daily 08/17/2018 Active prednisone 20 mg tablet RxNorm: 391160 2 Tablet(s) PO daily 11/17/2017 Inactive Keflex 500 mg capsule RxNorm: 202954 1 Capsule(s) PO TID and take a probiotic BID x7days 11/07/2017 11/13/2017 Inactive take with probiotic BID amlodipine 5 mg tablet RxNorm: 222125 1 Tablet(s) PO daily 10/06/2018 Active cefdinir 300 mg capsule RxNorm: 423766 1 Capsule(s) PO BID 09/23/2017 Inactive cefdinir 300 mg capsule RxNorm: 015358 1 Capsule(s) PO BID started by Dr. Davila 09/14/2017 09/13/2017 Inactive betamethasone dipropionate 0.05 % topical cream RxNorm: 615065 1 Application TOP BID 08/29/2017 10/09/2017 Inactive mix with clotrimazole and apply to affected area clotrimazole 1 % topical cream RxNorm: 825970 1 Application TOP BID 08/29/2017 10/09/2017 Inactive mix with betamethasone and apply to affected area nystatin 100,000 unit/mL oral suspension RxNorm: 036868 5 Milliliter(s) PO QID 08/29/2017 09/17/2017 Inactive lisinopril 10 mg tablet RxNorm: 111464 1 Tablet(s) PO daily 11/14/2017 Inactive Kenalog 40 mg/mL suspension for injection RxNorm: 6867210 1 Milliliter(s) Inj 07/28/2017 07/28/2017 Inactive nystatin 100,000 unit/mL oral suspension RxNorm: 230458 5 Milliliter(s) PO QID 07/28/2017 08/06/2017 Inactive Keflex 500 mg capsule RxNorm: 591533 1 Capsule(s) PO TID 201708/03/2017 Inactive Flonase Allergy Relief 50 mcg/actuation nasal spray, suspension RxNorm: 7535587 USE ONE SPRAY(S) IN EACH NOSTRIL TWICE DAILY 07/25/2017 No Stop Date Active meclizine 25 mg tablet RxNorm: 885567 TAKE ONE TABLET BY MOUTH THREE TIMES DAILY NEEDED 07/25/2017 No Stop Date Active Voltaren 1 % topical gel RxNorm: 774207 1 Application TOP QID as needed 06/20/2017 No Stop Date Active Zithromax Z-Dylan 250 mg tablet RxNorm: 136317 1 Tablet(s) PO UD 06/20/2017 07/27/2017 Inactive z pack as directed Keflex 500 mg capsule RxNorm: 283506 1 Capsule(s) PO TID 201706/01/2017 Inactive Zithromax Z-Dylan 250 mg tablet RxNorm: 130329 1 Tablet(s) PO UD 04/27/2017 06/19/2017 Inactive z pack as directed lisinopril 10 mg tablet RxNorm: 310457 1 Tablet(s) PO daily 07/22/2017 Inactive Lipitor 10 mg tablet RxNorm: 083788 1 Tablet(s) PO QHS 201711/06/2017 Inactive Zithromax Z-Dylan 250 mg tablet RxNorm: 739275 1 Tablet(s) PO UD 02/15/2017 04/26/2017 Inactive z pack as directed meclizine 25 mg tablet RxNorm: 147834 TAKE ONE TABLET BY MOUTH THREE TIMES DAILY NEEDED 01/23/2017 07/24/2017 Inactive Zithromax Z-Dylan 250 mg tablet RxNorm: 291650 1 Tablet(s) PO UD 01/05/2017 02/14/2017 Inactive z pack as directed losartan 50 mg tablet RxNorm: 679157 1 Tablet(s) PO daily 201604/10/2017 Inactive amlodipine 5 mg tablet RxNorm: 834035 1 Tablet(s) PO daily 10/11/2017 Inactive Zithromax Z-Dylan 250 mg tablet RxNorm: 728556 1 Tablet(s) PO UD 12/16/2016 01/04/2017 Inactive z pack as directed Zyrtec 10 mg tablet RxNorm: 9627696 1 Tablet(s) PO daily 12/1601/14/2017 Inactive Lipitor 10 mg tablet RxNorm: 564918 1 Tablet(s) PO QHS 201602/22/2017 Inactive Zithromax Z-Dylan 250 mg tablet RxNorm: 282488 1 Tablet(s) PO UD 09/27/2016 12/15/2016 Inactive z pack as directed Lipitor 10 mg tablet RxNorm: 594760 1 Tablet(s) PO QHS 201610/25/2016 Inactive guaifenesin 400 mg tablet RxNorm: 327570 1 Tablet(s) PO BID as needed 08/04/2016 No Stop Date Active cefdinir 300 mg capsule RxNorm: 475257 1 Capsule(s) PO BID started by Dr. Davila 08/04/2016 08/13/2016 Inactive amlodipine 10 mg tablet RxNorm: 443557 1 Tablet(s) PO daily 07/201612/21/2016 Inactive Keflex 500 mg capsule RxNorm: 817074 1 Capsule(s) PO TID 201607/27/2016 Inactive Zyrtec 10 mg tablet RxNorm: 1071359 1 Tablet(s) PO daily 07/0107/30/2016 Inactive Xanax 0.25 mg tablet RxNorm: 001804 1 Tablet(s) PO TID as needed anxiety 07/01/2016 08/27/2016 Inactive amlodipine 5 mg tablet RxNorm: 822658 1 Tablet(s) PO daily 06/201607/30/2016 Inactive Keflex 500 mg capsule RxNorm: 578271 1 Capsule(s) PO TID 201607/03/2016 Inactive Keflex 500 mg capsule RxNorm: 458516 1 Capsule(s) PO TID 201606/23/2016 Inactive Keflex 500 mg capsule RxNorm: 839800 1 Capsule(s) PO TID 201606/30/2016 Inactive Flonase Allergy Relief 50 mcg/actuation nasal spray, suspension RxNorm: 0959580 USE ONE SPRAY(S) IN EACH NOSTRIL TWICE DAILY 06/20/2016 05/15/2017 Inactive amlodipine 10 mg tablet RxNorm: 979010 1 Tablet(s) PO daily 04/201606/28/2016 Inactive Lipitor 10 mg tablet RxNorm: 356364 1 Tablet(s) PO QHS 201608/14/2016 Inactive Flonase Allergy Relief 50 mcg/actuation nasal spray, suspension RxNorm: 5966394 USE ONE SPRAY(S) IN EACH NOSTRIL TWICE DAILY 04/18/2016 05/17/2016 Inactive cephalexin 500 mg capsule RxNorm: 415304 1 Capsule(s) PO TID 04/05/2016 Inactive take with probiotics BID amlodipine 10 mg tablet RxNorm: 370472 1 Tablet(s) PO daily 02/201605/29/2016 Inactive Bactroban 2 % topical cream RxNorm: 973209 1 Application TOP BID 03/30/2016 04/08/2016 Inactive Zithromax Z-Dylan 250 mg tablet RxNorm: 278647 1 Tablet(s) PO UD 03/10/2016 05/15/2016 Inactive z pack as directed Keflex 500 mg capsule RxNorm: 238447 1 Capsule(s) PO TID 201502/25/2016 Inactive take with probiotics BID acyclovir 800 mg tablet RxNorm: 749195 1 Tablet(s) PO TID 01/2402/21/2016 Inactive Zithromax Z-Dylan 250 mg tablet RxNorm: 157426 1 Tablet(s) PO UD 01/19/2016 01/24/2016 Inactive z pack Flonase Allergy Relief 50 mcg/actuation nasal spray, suspension RxNorm: 7618080 USE ONE SPRAY(S) IN EACH NOSTRIL TWICE DAILY 12/28/2015 02/25/2016 Inactive Kenalog 40 mg/mL suspension for injection RxNorm: 4117307 Milliliter(s) Inj 12/18/2015 12/18/2015 Inactive Keflex 500 mg capsule RxNorm: 769959 1 Capsule(s) PO TID 201512/24/2015 Inactive Zithromax Z-Dylan 250 mg tablet RxNorm: 046704 1 Tablet(s) PO UD 12/09/2015 12/23/2015 Inactive z pack meclizine 25 mg tablet RxNorm: 890213 1 Tablet(s) PO TID as needed 12/09/2015 12/08/2015 Inactive meclizine 25 mg tablet RxNorm: 203717 1 Tablet(s) PO TID as needed 12/09/2015 02/26/2016 Inactive Keflex 500 mg capsule RxNorm: 297958 1 Capsule(s) PO TID 201511/22/2015 Inactive Cipro 500 mg tablet RxNorm: 903226 1 Tablet(s) PO BID 201511/13/2015 Inactive Keflex 500 mg capsule RxNorm: 892010 1 Capsule(s) PO TID 201510/30/2015 Inactive Xanax 0.25 mg tablet RxNorm: 419738 1 Tablet(s) PO TID as needed anxiety 09/18/2015 11/13/2015 Inactive Keflex 500 mg capsule RxNorm: 479358 1 Capsule(s) PO TID 201508/19/2015 Inactive losartan 50 mg tablet RxNorm: 493940 1 Tablet(s) PO daily 201507/07/2015 Inactive Pepcid 20 mg tablet RxNorm: 845102 1 Tablet(s) PO BID 201507/07/2015 Inactive Pepcid 20 mg tablet RxNorm: 587782 1 Tablet(s) PO BID 201501/31/2016 Inactive losartan 50 mg tablet RxNorm: 114336 1 Tablet(s) PO daily 201501/31/2016 Inactive prednisone 20 mg tablet RxNorm: 795222 2 Tablet(s) PO daily 06/22/2015 Inactive prednisone 20 mg tablet RxNorm: 457872 2 Tablet(s) PO daily 12/23/2015 Inactive Diflucan 100 mg tablet RxNorm: 492000 TAKE ONE TABLET BY MOUTH ONCE DAILY 06/12/2015 12/23/2015 Inactive Zithromax Z-Dylan 250 mg tablet RxNorm: 840738 1 Tablet(s) PO UD 06/05/2015 07/06/2015 Inactive z pack amlodipine 5 mg tablet RxNorm: 305215 1 Tablet(s) PO daily 03/29/2016 Inactive Zetia 10 mg tablet RxNorm: 051579 1 Tablet(s) PO daily 201506/14/2015 Inactive valsartan 160 mg tablet RxNorm: 350723 1 Tablet(s) PO daily 07/07/2015 Inactive Lipitor 10 mg tablet RxNorm: 381522 1 Tablet(s) PO QHS 201505/18/2015 Inactive Lipitor 10 mg tablet RxNorm: 085911 1 Tablet(s) PO QHS 201504/27/2015 Inactive Zithromax 250 mg tablet RxNorm: 721790 Tablet(s) PO UD 201504/28/2015 Inactive Keflex 500 mg capsule RxNorm: 420733 1 Capsule(s) PO TID 201503/22/2015 Inactive Keflex 500 mg capsule RxNorm: 321442 1 Capsule(s) PO TID 201504/01/2015 Inactive Xanax 0.25 mg tablet RxNorm: 141702 1 Tablet(s) PO TID as needed anxiety 03/12/2015 07/04/2016 Inactive carvedilol 25 mg tablet RxNorm: 149360 1 Tablet(s) PO BID 03/1201/31/2016 Inactive amlodipine 5 mg tablet RxNorm: 004125 1 Tablet(s) PO BID 201505/18/2015 Inactive Diflucan 100 mg tablet RxNorm: 082812 1 Tablet(s) PO daily 03/21/2015 Inactive Diflucan 100 mg tablet RxNorm: 298962 1 Tablet(s) PO daily 02/14/2015 Inactive Diflucan 100 mg tablet RxNorm: 482584 1 Tablet(s) PO daily 06/201401/05/2015 Inactive Diflucan 100 mg tablet RxNorm: 197753 1 Tablet(s) PO daily 06/201412/31/2014 Inactive nystatin 100,000 unit/mL oral suspension RxNorm: 880057 5 Milliliter(s) PO QID 12/24/2014 06/14/2015 Inactive nystatin 100,000 unit/mL oral suspension RxNorm: 257732 5 Milliliter(s) PO QID 12/24/2014 12/23/2014 Inactive Zithromax 250 mg tablet RxNorm: 188617 1 Tablet(s) PO daily 12/19/2014 Inactive Zithromax 250 mg tablet RxNorm: 523361 1 Tablet(s) PO daily 12/14/2014 Inactive Flonase Allergy Relief 50 mcg/actuation nasal spray, suspension RxNorm: 1 Phenix NASAL BID 12/11/2014 12/10/2014 Inactive Flonase Allergy Relief 50 mcg/actuation nasal spray, suspension RxNorm: 2551403 1 Phenix NASAL BID 12/11/20142015 Inactive amlodipine 5 mg tablet RxNorm: 009164 2 Tablet(s) PO daily 11/13/2014 Inactive amlodipine 5 mg tablet RxNorm: 420347 2 Tablet(s) PO daily 03/11/2015 Inactive Lotrisone 1 %-0.05 % topical cream RxNorm: 948637 1 TOP BID until healed 10/17/2014 10/30/2014 Inactive Lotrisone 1 %-0.05 % topical cream RxNorm: 816373 1 TOP BID until healed 10/16/2014 10/16/2014 Inactive Lotrisone 1 %-0.05 % topical cream RxNorm: 022416 1 TOP BID until healed 10/06/2014 10/15/2014 Inactive Keflex 500 mg capsule RxNorm: 058775 1 Capsule(s) PO TID 201408/11/2014 Inactive Keflex 500 mg capsule RxNorm: 367401 1 Capsule(s) PO TID 201408/18/2014 Inactive clotrimazole 1 % topical solution RxNorm: 430157 1 Drop(s) TOP BID No Start Date Active Vitamin D3 5,000 unit tablet RxNorm: 475222 1 Tablet(s) PO daily No Start Date Active guaifenesin 400 mg tablet RxNorm: 588877 1 Tablet(s) PO BID as needed No Start Date 08/03/2016 Inactive Lotrisone 1 %-0.05 % topical cream RxNorm: 217234 1 TOP BID until healed No Start Date 10/05/2014 Inactive lisinopril 40 mg tablet RxNorm: 144637 1 Tablet(s) PO daily No Start Date 05/18/2015 Inactive amlodipine 5 mg tablet RxNorm: 425675 1 Tablet(s) PO daily No Start Date 11/13/2014 Inactive indapamide 1.25 mg tablet RxNorm: 108790 1 Tablet(s) PO daily No Start Date 01/31/2016 Inactive aspirin 81 mg tablet RxNorm: 570482 1 Tablet(s) PO daily No Start Date 02/07/2017 Inactive Medication Administered Medication Codes Instructions Start Date Status Kenalog 40 mg/mL suspension for injection RxNorm: 0092456 1Milliliter 07/28/2017 No longer Active Kenalog 40 mg/mL suspension for injection RxNorm: 8126683 Milliliter 12/18/2015 No longer Active Immunizations Vaccine [...] 30.8 pg 04/11/2018 Cbc With Differential Ord2 [place]% 13.0 % 04/11/2018 Cbc With Differential Ord2 [...] 3.09 K/ul 04/11/2018 Cbc With Differential Ord2 [place] ABS# 1.2 K/ul 04/11/2018 Cbc With Differential Ord2 Eos ABS# 0.2 K/ul 04/11/2018 Cbc With Differential Ord2 Baso ABS# 0.1 K/ul 04/11/2018 Tsh Ord6 TSH (3rd IS) 2.85 uIU/mL 04/11/2018 %Hba1C Izc232 % HbA1c 28513-8 7.1 % 04/11/2018 %Hba1C Iqc866 Gluc Ave 157 mg/dL 04/11/2018 Lipid Ord30 CHOL 150 mg/dL 04/11/2018 Lipid Ord30 HDL 38.0 mg/dl 04/11/2018 Lipid Ord30 TRIG 203 mg/dL 04/11/2018 Lipid Ord30 LDL 71 mg/dL 04/11/2018 Lipid Ord30 C/HDL 3.9 Ratio 04/11/2018 Vitamin D 25 Oh Xob0566 VITAMIN D, 25 HYDROXY 48.86 ng/mL Comp Metabolic Vmp101 NA 138 mEq/L 04/11/2018 Comp Metabolic Gwb132 K 4.4 mEq/L 04/11/2018 Comp Metabolic Ezl863 CL 101 mEq/L 04/11/2018 Comp Metabolic Hlp916 CO2 29.0 mEq/L 04/11/2018 Comp Metabolic Sqv768 ANION GAP 12 04/11/2018 Comp Metabolic Prm086 GLUCOSE 120 mg/dL 04/11/2018 Comp Metabolic Pcl867 Creat 1.2 mg/dL 04/11/2018 Comp Metabolic Jzc123 eGFR 47 ml/min/1.73m2 04/11/2018 Comp Metabolic Fft013 BUN 23 mg/dL 04/11/2018 Comp Metabolic Nvr190 B/C Ratio 19.7 Ratio 04/11/2018 Comp Metabolic Tsv279 CALCIUM 10.3 mg/dL 04/11/2018 Comp Metabolic Enf318 ALK PHOS 40 U/L 04/11/2018 Comp Metabolic Img869 AST(SGOT) 15 U/L 04/11/2018 Comp Metabolic Wvc187 ALT(SGPT) 9 U/L 04/11/2018 Comp Metabolic Evb974 BILI T 1.0 mg/dL 04/11/2018 Comp Metabolic Dok061 ALBUMIN 4.3 g/dL 04/11/2018 Comp Metabolic Wif147 TPRO 6.8 g/dL 04/11/2018 Comp Metabolic Tkh234 GLOB 2.5 g/dL 04/11/2018 Comp Metabolic Vlt874 A/G Ratio 1.7 Ratio 04/11/2018 Comp Metabolic Tfv431 Osmo 281 mOsmo 04/11/2018 %Hba1C Bax866 % HbA1c 65320-8 6.5 % 12/01/2016 %Hba1C Ipp467 Gluc Ave 140 mg/dL 12/01/2016 Lipid Ord30 [...] 31.3 pg 04/12/2016 Cbc With Differential Ord2 [place]% 13.3 % 04/12/2016 Cbc With Differential Ord2 [...] 2.85 K/ul 04/12/2016 Cbc With Differential Ord2 [place] ABS# 1.1 K/ul 04/12/2016 Cbc With Differential Ord2 Eos ABS# 0.1 K/ul 04/12/2016 Cbc With Differential Ord2 Baso ABS# 0.0 K/ul 04/12/2016 Comp Metabolic Gjy189 NA 129 mEq/L 04/12/2016 Comp Metabolic Wzd993 K 4.0 mEq/L 04/12/2016 Comp Metabolic Dae474 CL 93 mEq/L 04/12/2016 Comp Metabolic Azt073 CO2 29.0 mEq/L 04/12/2016 Comp Metabolic Enj774 ANION GAP 11 04/12/2016 Comp Metabolic Wih759 GLUCOSE 100 mg/dL 04/12/2016 Comp Metabolic Yev486 Creat 1.0 mg/dL 04/12/2016 Comp Metabolic Smm758 eGFR 55 ml/min/1.73m2 04/12/2016 Comp Metabolic Otv257 BUN 19 mg/dL 04/12/2016 Comp Metabolic Nln401 B/C Ratio 18.8 Ratio 04/12/2016 Comp Metabolic Qgn144 CALCIUM 9.3 mg/dL 04/12/2016 Comp Metabolic Wwo043 ALK PHOS 38 U/L 04/12/2016 Comp Metabolic Izi895 AST(SGOT) 17 U/L 04/12/2016 Comp Metabolic Imr257 ALT(SGPT) 11 U/L 04/12/2016 Comp Metabolic Czr336 BILI T 1.0 mg/dL 04/12/2016 Comp Metabolic Fys379 ALBUMIN 4.2 g/dL 04/12/2016 Comp Metabolic Uch040 TPRO 6.6 g/dL 04/12/2016 Comp Metabolic Zkw390 GLOB 2.4 g/dL 04/12/2016 Comp Metabolic Gzw690 A/G Ratio 1.8 Ratio 04/12/2016 Comp Metabolic Yya294 Osmo 261 mOsmo 04/12/2016 Lipid Ord30 CHOL 265 mg/dL 04/12/2016 Lipid Ord30 HDL 42.0 mg/dl 04/12/2016 Lipid Ord30 TRIG 246 mg/dL 04/12/2016 Lipid Ord30 LDL 174 mg/dL 04/12/2016 Lipid Ord30 C/HDL 6.3 Ratio 04/12/2016 Tsh Ord6 hTSH II 2.49 uIU/mL 04/12/2016 Tsh Ord6 hTSH II 1.83 uIU/mL 06/12/2015 Comp Metabolic Zpn175 NA 137 mEq/L 06/12/2015 Comp Metabolic Coz504 K 4.4 mEq/L 06/12/2015 Comp Metabolic Qwa909 CL 103 mEq/L 06/12/2015 Comp Metabolic Bct088 CO2 27.0 mEq/L 06/12/2015 Comp Metabolic Zjs021 ANION GAP 11 06/12/2015 Comp Metabolic Php312 GLUCOSE 87 mg/dL 06/12/2015 Comp Metabolic Izy242 Creat 1.3 mg/dL 06/12/2015 Comp Metabolic Fqq952 eGFR 43 ml/min/1.73m2 06/12/2015 Comp Metabolic Tpu781 BUN 32 mg/dL 06/12/2015 Comp Metabolic Kaf550 B/C Ratio 25.4 Ratio 06/12/2015 Comp Metabolic Uyx201 CALCIUM 9.5 mg/dL 06/12/2015 Comp Metabolic Wbj210 ALK PHOS 36 U/L 06/12/2015 Comp Metabolic Jjv217 AST(SGOT) 16 U/L 06/12/2015 Comp Metabolic Rwy146 ALT(SGPT) 17 U/L 06/12/2015 Comp Metabolic Qsz934 BILI T 1.0 mg/dL 06/12/2015 Comp Metabolic Msn425 ALBUMIN 4.1 g/dL 06/12/2015 Comp Metabolic Xqy282 TPRO 6.5 g/dL 06/12/2015 Comp Metabolic Fom073 GLOB 2.5 g/dL 06/12/2015 Comp Metabolic Zih874 A/G Ratio 1.7 Ratio 06/12/2015 Comp Metabolic Cfa820 Osmo 280 mOsmo 06/12/2015 Lipid Ord30 CHOL [...] 30.6 pg 06/12/2015 Cbc With Differential Ord2 [place]% 11.0 % 06/12/2015 Cbc With Differential Ord2 [...] 1.96 K/ul 06/12/2015 Cbc With Differential Ord2 [place] ABS# 0.9 K/ul 06/12/2015 Cbc With Differential [...] 30.3 pg 03/12/2015 Cbc With Differential Ord2 [place]% 10.7 % 03/12/2015 Cbc With Differential Ord2 [...] 2.00 K/ul 03/12/2015 Cbc With Differential Ord2 [place] ABS# 1.0 K/ul 03/12/2015 Cbc With Differential Ord2 Eos ABS# 0.1 K/ul 03/12/2015 Cbc With Differential Ord2 Baso ABS# 0.0 K/ul 03/12/2015 Cbc With Differential Ord2 New Analyzer Notice Please note new ref ranges starting 03-11-2015 due to implemntation of new five part differential hematolgy analyzer. 03/12/2015 Comp Metabolic Lkn790 NA 139 mEq/L 03/12/2015 Comp Metabolic Bsx135 K 4.2 mEq/L 03/12/2015 Comp Metabolic Sjk649 CL 101 mEq/L 03/12/2015 Comp Metabolic Yln218 CO2 28.0 mEq/L 03/12/2015 Comp Metabolic Uyz178 ANION GAP 14 03/12/2015 Comp Metabolic Ntr727 GLUCOSE 78 mg/dL 03/12/2015 Comp Metabolic Pxt366 Creat 1.1 mg/dL 03/12/2015 Comp Metabolic Fpz455 eGFR 51 ml/min/1.73m2 03/12/2015 Comp Metabolic Ypi129 BUN 17 mg/dL 03/12/2015 Comp Metabolic Cla070 B/C Ratio 15.6 Ratio 03/12/2015 Comp Metabolic Ewu366 CALCIUM 9.4 mg/dL 03/12/2015 Comp Metabolic Nsx411 ALK PHOS 46 U/L 03/12/2015 Comp Metabolic Jeb100 AST(SGOT) 16 U/L 03/12/2015 Comp Metabolic Ssx619 ALT(SGPT) 12 U/L 03/12/2015 Comp Metabolic Alo388 BILI T 0.8 mg/dL 03/12/2015 Comp Metabolic Dzn311 ALBUMIN 4.1 g/dL 03/12/2015 Comp Metabolic Zhs677 TPRO 6.6 g/dL 03/12/2015 Comp Metabolic Jss356 GLOB 2.6 g/dL 03/12/2015 Comp Metabolic Ztq222 A/G Ratio 1.6 Ratio 03/12/2015 Comp Metabolic Hcp193 Osmo 278 mOsmo 03/12/2015 Lipid Ord30 CHOL [...] hTSH II 3.15 uIU/mL 12/01/2014 Comp Metabolic Qqk599 NA 132 mEq/L 12/01/2014 Comp Metabolic Kjh206 K 4.4 mEq/L 12/01/2014 Comp Metabolic Ffl489 CL 99 mEq/L 12/01/2014 Comp Metabolic Ens603 CO2 27.0 mEq/L 12/01/2014 Comp Metabolic Hvv868 ANION GAP 10 12/01/2014 Comp Metabolic Cnt858 GLUCOSE 86 mg/dL 12/01/2014 Comp Metabolic Rhq321 Creat 1.2 mg/dL 12/01/2014 Comp Metabolic Uvj844 eGFR 46 ml/min/1.73m2 12/01/2014 Comp Metabolic Cht513 BUN 32 mg/dL 12/01/2014 Comp Metabolic Fyw182 B/C Ratio 27.1 Ratio 12/01/2014 Comp Metabolic Ags869 CALCIUM 9.4 mg/dL 12/01/2014 Comp Metabolic Yix350 ALK PHOS 35 U/L 12/01/2014 Comp Metabolic Lhh164 AST(SGOT) 14 U/L 12/01/2014 Comp Metabolic Xdp676 ALT(SGPT) 13 U/L 12/01/2014 Comp Metabolic Yru514 BILI T 0.8 mg/dL 12/01/2014 Comp Metabolic Lti957 ALBUMIN 4.0 g/dL 12/01/2014 Comp Metabolic Oku927 TPRO 6.8 g/dL 12/01/2014 Comp Metabolic Fon775 GLOB 2.8 g/dL 12/01/2014 Comp Metabolic Izg508 A/G Ratio 1.4 Ratio 12/01/2014 Comp Metabolic Qqi995 Osmo 271 mOsmo 12/01/2014 Review of Systems [...] FLU VACC PRSV FREE INC ANTIG CPT-4: 45198 11/13/2017 ADMIN INFLUENZA VIRUS VAC CPT-4: G0008 11/13/2017 TRIAMCINOLONE ACET INJ NOS CPT-4: J3301 07/28/2017 PPPS, SUBSEQ VISIT CPT -4: G0439 02/08/2017 URINALYSIS NONAUTO W/O SCOPE CPT-4: 24211 08/15/2016 PPPS, SUBSEQ VISIT CPT -4: G0439 02/01/2016 TRIAMCINOLONE ACET INJ NOS CPT-4: J3301 12/18/2015 ADMIN INFLUENZA VIRUS VAC CPT-4: G0008 11/26/2015 FLU VACC 4 GISELA 3 YRS PLUS IM Formatting Model/CDA Sections, Assigned to/Malina Mazariegos CT: [id number] CPT-4: 96211Syxhyhv 11/26/2015 URINALYSIS NONAUTO W/O SCOPE CPT-4: 60237 11/20/2015 URINALYSIS NONAUTO W/O SCOPE CPT-4: 33380 11/13/2015 IMMUNIZATION ADMIN CPT -4: 80218 12/01/2014 FLU VACC 4 GISELA 3 YRS PLUS IM Formatting Model/CDA Sections, Assigned to/Malina Mazariegos CT: [id number] CPT-4: 10019Cdqpdqi 12/01/2014 Vital Signs Date Vital 05/22/2018 Blood Pressure 1: 128/50 Code : 8480-6 BMI: 24.6 Code : 78945-5 Heart Rate 1 : 76 bpm Height: 5'1" SpO2: 98% Weight: 130 lbs 04/11/2018 Blood Pressure 1: 142/56 Code : 8480-6 BMI: 25.1 Code : 97509-5 Heart Rate 1 : 68 bpm Height: 5'1" SpO2: 96% Weight: 133 lbs 02/06/2018 Blood Pressure 1: 142/60 Code : 8480-6 BMI: 25.3 Code : 89821-3 Heart Rate 1 : 68 bpm Height: 5'1" SpO2: 99% Temperature: 37.0 (C) / 98.6 (F) Weight: 134 lbs 12/08/2017 Blood Pressure 1: 140/52 Code : 8480-6 BMI: 25.5 Code : 24759-2 Heart Rate 1 : 77 bpm Height: 5'1" SpO2: 96% Temperature: 36.6 (C) / 97.9 (F) Weight: 135 lbs 11/13/2017 Blood Pressure 1: 134/54 Code : 8480-6 BMI: 24.8 Code : 71956-9 Heart Rate 1 : 73 bpm Height: 5'1" SpO2: 98% Weight: 131 lbs 08/29/2017 Blood Pressure 1: 162/64 Code : 8480-6 BMI: 24.9 Code : 79844-3 Heart Rate 1 : 61 bpm Height: 5'1" SpO2: 96% Weight: 132 lbs 07/28/2017 Blood Pressure 1: 148/62 Code : 8480-6 BMI: 25.1 Code : 49903-2 Heart Rate 1 : 67 bpm Height: 5'1" SpO2: 99% Temperature: 36.4 (C) / 97.5 (F) Weight: 133 lbs 06/20/2017 Blood Pressure 1: 140/52 Code : 8480-6 BMI: 25.3 Code : 10534-8 Heart Rate 1 : 64 bpm Height: 5'1" SpO2: 98% Weight: 134 lbs 05/26/2017 Blood Pressure 1: 140/56 Code : 8480-6 BMI: 25.7 Code : 70173-1 Heart Rate 1 : 74 bpm Height: 5'1" SpO2: 95% Weight: 136 lbs 04/24/2017 Blood Pressure 1: 140/68 Code : 8480-6 BMI: 24.6 Code : 42141-9 Heart Rate 1 : 67 bpm Height: 5'1" SpO2: 97% Weight: 130 lbs 02/08/2017 Blood Pressure 1: 134/76 Code : 8480-6 BMI: 24.9 Code : 65078-3 Heart Rate 1 : 67 bpm Height: 5'1" SpO2: 98% Waist Measure (cm): 06021 cm Weight: 132 lbs 12/22/2016 Blood Pressure 1: 156/80 Code : 8480-6 BMI: 24.2 Code : 84884-8 Heart Rate 1 : 65 bpm Height: 5'1" SpO2: 98% Weight: 128 lbs 12/16/2016 Blood Pressure 1: 138/62 Code : 8480-6 BMI: 23.8 Code : 91668-1 Heart Rate 1 : 63 bpm Height: 5'1" SpO2: 98% Weight: 126 lbs 08/15/2016 Blood Pressure 1: 130/60 Code : 8480-6 BMI: 25.3 Code : 79863-2 Heart Rate 1 : 72 bpm Height: 5'1" SpO2: 95% Weight: 134 lbs 08/02/2016 Blood Pressure 1: 160/62 Code : 8480-6 BMI: 25.3 Code : 59264-3 Heart Rate 1 : 67 bpm Height: 5'1" SpO2: 97% Weight: 134 lbs 07/21/2016 Blood Pressure 1: 148/66 Code : 8480-6 BMI: 25.9 Code : 25022-9 Heart Rate 1 : 71 bpm Height: 5'1" SpO2: 97% Temperature: 36.8 (C) / 98.2 (F) Weight: 137 lbs 07/01/2016 Blood Pressure 1: 142/72 Code : 8480-6 BMI: 26.5 Code : 76740-7 Heart Rate 1 : 68 bpm Height: 5'1" SpO2: 94% Weight: 140 lbs 05/16/2016 Blood Pressure 1: 162/76 Code : 8480-6 Blood Pressure 1: 138/68 Code: 8480-6 BMI: 25.7 Code: 17443-9 Heart Rate 1: 58 bpm Height: 5'1" SpO2: 98% Weight: 136 lbs 04/06/2016 Blood Pressure 1: 162/72 Code : 8480-6 Blood Pressure 1: 138/74 Code: 8480-6 BMI: 25.7 Code: 59797-2 Heart Rate 1: 75 bpm Height: 5'1" SpO2: 97% Weight: 136 lbs 03/30/2016 Blood Pressure 1: 188/80 Code : 8480-6 BMI: 26.3 Code : 74959-0 Heart Rate 1 : 75 bpm Height: 5'1" SpO2: 98% Weight: 139 lbs 02/01/2016 Blood Pressure 1: 140/72 Code : 8480-6 BMI: 25.3 Code : 36402-6 Heart Rate 1 : 65 bpm Height: 5'1" SpO2: 97% Waist Measure (cm): 84 cm Weight: 134 lbs 01/25/2016 Blood Pressure 1: 140/74 Code : 8480-6 BMI: 25.1 Code : 85937-3 Heart Rate 1 : 66 bpm Height: 5'1" SpO2: 98% Weight: 133 lbs 12/24/2015 Blood Pressure 1: 142/66 Code : 8480-6 BMI: 24.9 Code : 65825-8 Heart Rate 1 : 54 bpm Height: 5'1" SpO2: 97% Weight: 132 lbs 12/18/2015 Blood Pressure 1: 152/62 Code : 8480-6 BMI: 25.5 Code : 38331-3 Heart Rate 1 : 66 bpm Height: 5'1" SpO2: 96% Weight: 135 lbs 12/11/2015 Blood Pressure 1: 136/54 Code : 8480-6 Heart Rate 1: 72 bpm SpO2: 98% Weight: 137 lbs 11/26/2015 Blood Pressure 1: 142/70 Code : 8480-6 BMI: 25.3 Code : 58170-4 Heart Rate 1 : 64 bpm Height: 5'1" SpO2: 97% Weight: 134 lbs 11/20/2015 Blood Pressure 1: 154/70 Code : 8480-6 Heart Rate 1: 65 bpm SpO2: 98% 10/23/2015 Blood Pressure 1: 138/62 Code : 8480-6 Heart Rate 1: 55 bpm SpO2: 98% 10/21/2015 Blood Pressure 1: 142/68 Code : 8480-6 BMI: 25.7 Code : 34288-7 Heart Rate 1 : 73 bpm Height: 5'1" SpO2: 98% Weight: 136 lbs 07/15/2015 Blood Pressure 1: 130/60 Code : 8480-6 BMI: 26.6 Code : 62457-0 Heart Rate 1 : 70 bpm Height: 5'1" SpO2: 97% Weight: 141 lbs 06/15/2015 Blood Pressure 1: 118/64 Code : 8480-6 BMI: 24.9 Code : 85777-6 Heart Rate 1 : 66 bpm Height: 5'1" SpO2: 99% Weight: 132 lbs 06/05/2015 Blood Pressure 1: 142/60 Code : 8480-6 Blood Pressure 1: 135/58 Code: 8480-6 Heart Rate 1: 64 bpm SpO2: 99% 05/19/2015 Blood Pressure 1: 146/60 Code : 8480-6 BMI: 27.1 Code : 33371-3 Heart Rate 1 : 66 bpm Height: 5'1" SpO2: 97% Weight: 143 lbs 8 oz 04/24/2015 Blood Pressure 1: 148/58 Code : 8480-6 BMI: 25.9 Code : 46055-6 Heart Rate 1 : 61 bpm Height: 5'1" SpO2: 98% Weight: 137 lbs 03/12/2015 Blood Pressure 1: 140/72 Code : 8480-6 BMI: 25.1 Code : 31085-8 Heart Rate 1 : 68 bpm Height: 5'1" SpO2: 98% Weight: 133 lbs 01/12/2015 Blood Pressure 1: 146/60 Code : 8480-6 BMI: 25.7 Code : 98942-4 Heart Rate 1 : 48 bpm Height: 5'1" SpO2: 97% Weight: 136 lbs 12/11/2014 Blood Pressure 1: 144/56 Code : 8480-6 Blood Pressure 1: 125/65 Code: 8480-6 BMI: 25.1 Code: 48721-9 Heart Rate 1: 56 bpm Height: 5'1" SpO2: 96% Weight: 133 lbs 12/01/2014 Blood Pressure 1: 136/60 Code : 8480-6 Heart Rate 1: 56 bpm SpO2: 96% Weight: 131 lbs 5 oz 08/14/2014 Blood Pressure 1: 132/72 Code : 8480-6 BMI: 25.5 Code : 27159-6 Heart Rate 1 : 73 bpm Height: [...] data Encounters Encounter Performer Location Codes Date (213 EST. PATIENT, LEVEL III Diagnosis: Essential (primary) hypertension[ICD10: I10] Diagnosis: Unilateral primary osteoarthritis, left knee[ICD10: M17.12] Berenice Cohen MD , [facility] CPT-4: 58255 05/22/2018 ([id number]) 09871 EST. PATIENT, LEVEL IV Diagnosis: Essential (primary) hypertension[ICD10: I10] Diagnosis: Other abnormal glucose[ICD10: R73.09] Diagnosis: Mixed hyperlipidemia[ICD10: E78.2] Diagnosis: Vitamin D deficiency, unspecified[ICD10: E55.9] Berenice Cohen MD, [facility] CPT-4: 72047 04/11/2018 22455 EST. PATIENT, LEVEL IV Diagnosis: Other acute sinusitis[ICD10: J01.80] Diagnosis: Other allergic rhinitis[ICD10: J30.89] Evelyn Cohen MD, [facility] CPT-4: 78069 02/06/2018 11424 EST. PATIENT, LEVEL III Diagnosis: Other allergic rhinitis[ICD10: J30.89] Diagnosis: Other acute sinusitis[ICD10: J01.80] Evelyn Cohen MD, [facility] CPT-4: 62979 12/08/2017 ([id number]) 49073 EST. PATIENT, LEVEL IV Diagnosis: Essential (primary) hypertension[ICD10: I10] Diagnosis: Chronic maxillary sinusitis[ICD10: J32.0] Diagnosis: Mixed hyperlipidemia[ICD10: E78.2] Diagnosis: Other abnormal glucose[ICD10: R73.09] Berenice Cohen MD, [facility] CPT-4: 86934 11/13/2017 ([id number]) 98382 EST. PATIENT, LEVEL III Diagnosis: Tinea corporis[ICD10: B35.4] Diagnosis: Essential (primary) hypertension[ICD10: I10] Doris Cohen MD, [facility] CPT-4: 32228 08/29/2017 ([id number]) 92011 EST. PATIENT, LEVEL III Diagnosis: Acute recurrent maxillary sinusitis[ICD10: J01.01] Diagnosis: Other allergic rhinitis[ICD10: J30.89] Doris Cohen MD, [facility] CPT-4: 37770 07/28/2017 97810 EST. PATIENT, LEVEL IV Diagnosis: Other acute sinusitis[ICD10: J01.80] Diagnosis: Other allergic rhinitis[ICD10: J30.89] Diagnosis: Otalgia, bilateral[ICD10: H92.03] Diagnosis: Pain in right knee[ICD10: M25.561] Diagnosis: Pain in left knee[ICD10: M25.562] Evelyn Cohen MD, [facility] CPT -4: 33896 06/20/2017 97011 EST. PATIENT, LEVEL IV Diagnosis: Other acute sinusitis[ICD10: J01.80] Diagnosis: Other allergic rhinitis[ICD10: J30.89] Diagnosis: Gastro-esophageal reflux disease without esophagitis[ICD10: K21.9] Evelyn Cohen MD, [facility] CPT-4: 09631 05/26/2017 08269 EST. PATIENT, LEVEL III Diagnosis: Essential (primary) hypertension[ICD10: I10] Evelyn Cohen MD, [facility] CPT-4: 35106 04/24/2017 ([id number]) 80857 EST. PATIENT, LEVEL IV Diagnosis: Essential (primary) hypertension[ICD10: I10] Diagnosis: Other abnormal glucose[ICD10: R73.09] Diagnosis: Mixed hyperlipidemia[ICD10: E78.2] Berenice Cohen MD, [facility] CPT-4: 31473 12/22/2016 20909 EST. PATIENT, LEVEL IV Diagnosis: Other acute sinusitis[ICD10: J01.80] Diagnosis: Other allergic rhinitis[ICD10: J30.89] Evelyn Cohen MD, [facility] CPT-4: 07200 12/16/2016 ([id number]) 05493 EST. PATIENT, LEVEL IV Diagnosis: Essential (primary) hypertension[ICD10: I10] Diagnosis: Mixed hyperlipidemia[ICD10: E78.2] Diagnosis: Dysuria[ICD10: R30.0] Berenice Cohen MD, [facility] CPT-4: 61072 08/15/2016 28550 EST. PATIENT, LEVEL III Diagnosis: Other acute sinusitis[ICD10: J01.80] Diagnosis: Other allergic rhinitis[ICD10: J30.89] Diagnosis: Otalgia, bilateral[ICD10: H92.03] Evelyn Cohen MD, [facility] CPT -4: 72605 08/02/2016 ([id number]) 33345 EST. PATIENT, LEVEL III Diagnosis: Acute recurrent maxillary sinusitis[ICD10: J01.01] Diagnosis: Otalgia, right ear[ICD10: H92.01] Doris Cohen MD, [facility] CPT-4: 72048 07/21/2016 41075 EST. PATIENT, LEVEL III Diagnosis: Dysuria[ICD10: R30.0] Diagnosis: Other allergic rhinitis[ICD10: J30.89] Evelyn Cohen MD, [facility] CPT-4: 43335 07/01/2016 ([id number]) 67447 EST. PATIENT, LEVEL IV Diagnosis: Essential (primary) hypertension[ICD10: I10] Diagnosis: Mixed hyperlipidemia[ICD10: E78.2] Berenice Cohen MD, [facility] CPT-4: 64131 05/16/2016 59414 EST. PATIENT, LEVEL III Diagnosis: Mixed hyperlipidemia[ICD10: E78.2] Diagnosis: Essential (primary) hypertension[ICD10: I10] Diagnosis: Laceration without foreign body of left hand, subsequent encounter[ ICD10: S61.412D] Evelyn Cohen MD, [facility] CPT-4: 36238 04/06/2016 ([id number]) 01211 EST. PATIENT, LEVEL III Diagnosis: Essential (primary) hypertension[ICD10: I10] Berenice Cohen MD, [facility] CPT-4: 94498 03/30/2016 ([id number]) 05972 EST. 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 PATIENT, LEVEL III Diagnosis: Essential (primary) hypertension[ICD10: I10] [facility] CPT-4: 86438 12/24/2015 24317 EST. PATIENT, LEVEL III Diagnosis: Other acute sinusitis[ICD10: J01.80] Diagnosis: Other allergic rhinitis[ICD10: J30.89] Evelyn Cohen MD, [facility] CPT-4: 91085 12/18/2015 ([id number]) Miscellaneous no charge Diagnosis: Essential (primary) hypertension[ICD10: I10] Evelyn Cohen MD, [facility] CPT-4: 12190 12/11/2015 ([id number]) 19823 EST. PATIENT, LEVEL IV Diagnosis: Essential (primary) hypertension[ICD10: I10] Diagnosis: Other abnormal glucose[ICD10: R73.09] Diagnosis: Encounter for immunization[ICD10: Z23] Berenice Cohen MD, [facility] CPT-4: 12155 11/26/2015 ([id number]) Miscellaneous no charge Diagnosis: Bitten by dog, initial encounter[ICD10: W54.0XXA] Evelyn Cohen MD, [facility] CPT-4: 00826 10/29/2015 ([id number]) Miscellaneous no charge Diagnosis: Essential (primary) hypertension[ICD10: I10] Diagnosis: Bitten by dog, initial encounter[ICD10: W54.0XXA] [facility] CPT-4: 34209 10/23/2015 85630 EST. PATIENT, LEVEL III Diagnosis: Cellulitis of face[ICD10: L03.211] Diagnosis: Bitten by dog, initial encounter[ICD10: W54.0XXA] [facility] CPT-4: 52291 10/21/2015 ([id number]) Miscellaneous no charge Diagnosis: Essential (primary) hypertension[ICD10: I10] [facility] CPT-4: 41664 07/15/2015 ([id number]) 15521 EST. PATIENT, LEVEL IV Diagnosis: Essential (primary) hypertension[ICD10: I10] Diagnosis: Mixed hyperlipidemia[ICD10: E78.2] Diagnosis: Dry mouth, unspecified[ICD10: R68.2] Berenice Cohen MD, [facility] CPT-4: 34370 06/15/2015 ([id number]) Miscellaneous no charge Diagnosis: Essential (primary) hypertension[ICD10: I10] Doris Cohen MD, [facility] CPT-4: 94062 06/05/2015 ([id number]) 16198 EST. PATIENT, LEVEL IV Diagnosis: Mammographic microcalcification found on diagnostic imaging of breast [ICD10: R92.0] Diagnosis: Edema, unspecified[ICD10: R60.9] Diagnosis: Essential (primary) hypertension[ICD10: I10] Berenice Cohen MD, [facility] CPT-4: 18249 05/19/2015 22172 EST. PATIENT, LEVEL IV Diagnosis: Other acute sinusitis[ICD10: J01.80] Diagnosis: Acute nasopharyngitis [common cold][ICD10: J00] Diagnosis: Other allergic rhinitis[ICD10: J30.89] Diagnosis: Localized edema[ICD10: R60.0] Diagnosis: Mixed hyperlipidemia[ICD10: E78.2] Evelyn Cohen MD, [facility] CPT-4: 00267 04/24/2015 ([id number]) 54404 EST. PATIENT, LEVEL IV Diagnosis: Essential (primary) hypertension[ICD10: I10] Diagnosis: Abscess of liver[ICD10: K75.0] Diagnosis: Anemia, unspecified[ICD10: D64.9] Berenice Cohen MD, [facility] CPT-4: 02519 03/12/2015 25235 EST. PATIENT, LEVEL IV Diagnosis: Essential (primary) hypertension[ICD10: I10] Diagnosis: Candidal stomatitis[ICD10: B37.0] Diagnosis: Pain in unspecified knee[ICD10: M25.569] Diagnosis: Edema, unspecified[ICD10: R60.9] Evelyn Cohen MD, [facility] CPT- 4: 59496 01/12/2015 ([id number]) 62077 EST. PATIENT, LEVEL III Diagnosis: Pain in right foot[ICD10: M79.671] [facility] CPT-4: 34902 12/11/2014 ([id number]) 94477 EST. PATIENT, LEVEL IV Diagnosis: Abscess of liver[ICD10: K75.0] Diagnosis: Hypo-osmolality and hyponatremia[ICD10: E87.1] Diagnosis: Essential (primary) hypertension[ICD10: I10] Diagnosis: VACCIN FOR INFLUENZA[ICD10: Z23] [facility] CPT-4: 32711 12/01/2014 ([id number]) OFFICE VISIT, NEW - LEVEL 4 Diagnosis: ESSENTIAL HYPERTENSION[ICD9: 401.9] Diagnosis: Chronic maxillary sinusitis[ICD9: 473.0] [facility] CPT-4: 56993 08/14/2014 Plan of Care Planned Activity Notes Codes Status Date Referral: Eduardo Suggs Referral info faxed. Patient [...] prevent falling. 05/22/2018 Appointment: Doris Sheffield WPtel: [address] [place], [place] [phone] (30 min) [facility] 05/22/2018 Patient Education: Patient Medication Summary Completed 05/22/2018 Care Plan: Referral Order SNOMED-CT : [id number] Pending 05/22/2018 Visit Plan: Hypertension - well [...] to medications. 04/11/2018 Appointment: Berenice Cohen WPtel: [facility] (15 min) Moderate 04/11/2018 Patient Education: Patient Medication Summary Completed 04/11/2018 Patient Education: Hypertension Completed 04/11/2018 Patient Education: Cholesterol Management Completed 04/11/2018 Patient Education: Patient Medication Summary Completed 03/30/2018 Care Plan: Comp Metabolic Pending 03/30/2018 Care Plan: Cbc With Differential Pending 03/30/2018 Care Plan: Tsh Pending 03/30/2018 Care Plan: Lipid Pending 03/30/2018 Appointment: Berenice Cohen WPtel: [facility]9 [facility] (15 min) Moderate 03/28/2018 Appointment: Berenice Cohen WPtel: [facility]0 [facility] (15 min) Moderate 03/19/2018 Visit Plan: Sinusitis [...] spray. 02/06/2018 App[facility]ment[phone] [facility] (15 min) Moderate 02/06/2018 Patient Education: Patient Medication Summary Completed 02/06/2018 Patient Education: Patient Medication Summary Completed 12/29/2017 Care Plan: [facility] 85763-1 Pending 12/11/2017 Visit Plan: Sinusitis - Pt [...] spray. 12/08/2017 Appointment: [phone] [facility] (15 min) Moderate 12/08/2017 Patient Education: Patient [...] shot today 11/13/2017 Appointment: Berenice Cohen WPtel: [phone] [facility]66[facility] (15 min) Moderate 11/13/2017 Patient Education: Patient Medication Summary Completed 11/13/2017 Patient Education: Cholesterol Management Completed 11/13/2017 Visit Plan: Tinea-rx sent to patient's pharmacy and instructed on use-keep groin clean/dry -call if symptoms do not resolve or if any worse HTN-elevated today-monitor and home and call if continues to be elevated 08/29/2017 Appointment: Doris Sheffield WPtel: [phone] [phone] (15 min) Moderate 08/29/2017 Patient Education: Patient [...] any worse 07/28/2017 Appointment: Doris Sheffield WPtel: [phone] [phone] (30 min) Complex 07/28/2017 Patient Education: Patient [...] improve. 06/20/2017 Appointment: [facility]el[facility] [phone] [facility] (15 min) Moderate 06/20/2017 Patient Education: [...] not improving. 05/26/2017 Appointment: [facility] West [facility]Ptel[facility] [phone] [facility] (15 min) Moderate 05/26/2017 Patient Education: [...] concerns. 04/24/2017 Appointment: Ev[facility] West [facility]Ptel[facility] [phone] [facility] (30 min) Complex 04/24/2017 Patient Education: [...] care surrogate. 02/08/2017 Appointment: Evelyn West [facility]Ptel[facility] [phone] [facility] [facility] - Annual Wellness Visit 02/08/2017 [...] today 12/22/2016 Appointment: Berenice Cohen WPtel: [phone] [facility] (15 min) Moderate 12/22/2016 Patient Education: Patient [...] allergy spray. 12/16/2016 Appointment: Evelyn West WPtel: [facility]5 [facility] (30 min) Complex 12/16/2016 Patient Education: Patient Medication Summary Completed 12/16/2016 Appointment: Berenice Cohen WPtel: [facility]5 [facility] (15 min) Moderate 11/15/2016 Visit Plan: Hypertension [...] on carbohydrates. 08/15/2016 Appointment: Berenice Cohen WPtel: [facility] (15 min) Moderate 08/15/2016 Patient Education: Patient Medication Summary Completed 08/15/2016 Appointment: Doris Sheffield WPtel: [phone] (15 min) Moderate 08/05/2016 Visit Plan: [...] improvement. 08/02/2016 Appointment: Evelyn West WPtel: [facility]6 [address] (30 min) Complex 08/02/2016 Patient Education: [...] flushed 07/21/2016 Appointment: Doris Sheffield WPtel: [phone] [phone] (15 min) Moderate 07/21/2016 Patient Education: [...] 10mg nightly. 05/16/2016 Appointment: Berenice Cohen WPtel: [address] [place], [place] [address] (15 min) Moderate 05/16/2016 Patient Education: Patient [...] or concerns. 04/06/2016 Appointment: Evelyn West WPtel: [facility]5 [facility] (10 min) Simple 04/06/2016 Patient Education: Patient [...] twice daily. 03/30/2016 Appointment: Berenice Cohen WPtel: [facility]5 [facility] (15 min) Moderate 03/30/2016 Patient Education: Patient Medication Summary Completed 03/30/2016 Appointment: Berenice Cohen WPtel: [facility]5 [facility] (15 min) Moderate 03/24/2016 Visit Plan: Medicare [...] surrogate. 02/01/2016 Appointment: Evelyn West WPtel: [facility]2 [address] - Annual Wellness Visit 02/01/2016 Patient Education: Patient Medication Summary Completed 02/01/2016 Visit Plan: Apthous ulcer - rx for acyclovir 800mg tid x7 days Sample of Voltaren gel to use on knees tid prn 01/25/2016 Appointment: Berenice Cohen WPtel: [facility] [address] (15 min) Moderate 01/25/2016 Patient Education: [...] home. 12/24/2015 Appointment: Berenice Cohen WPtel: [facility] [address] (15 min) Moderate 12/24/2015 Patient Education: [...] do not show improvement. 12/18/2015 Appointment: Doris Sheffiled WPtel: [facility]3 [phone] (15 min) Moderate 12/18/2015 Patient Education: [...] meal - 11/26/2015 Appointment: Berenice Cohen WPtel: [phone] [facility] (15 min) Moderate 11/26/2015 Patient Education: Patient [...] pain. 10/21/2015 Appointment: Dor[facility] Sheffield [facility]Ptel[facility] [phone] [phone] (15 min) Moderate 10/21/2015 Patient Education: [...] mouth spray 06/15/2015 [facility]ment[phone] ([facility] min) Moderate 06/15/2015 Patient Education: Patient Medication Summary Completed 06/15/2015 Patient Education: Patient Medication Summary Completed 06/12/2015 Appointment: [facility]el[phone] [facility] [place] (15 min) Moderate 06/11/2015 Appointment: [...] the day 03/12/2015 Appointment: Berenice Cohen WPtel: [facility] (15 min) Moderate 03/12/2015 Patient Education: [...] appointment with then soon. Pt to try [place] Benedict rub on the knees to help reduce [...] is sore 12/11/2014 Appointment: Berenice Cohen WPtel: [address] [place], [place] [address] (15 min) Moderate 12/11/2014 Patient Education: [...] not improving. 12/01/2014 Appointment: Berenice Cohen WPtel: [address] [place], [place] [phone] (15 min) Moderate 12/01/2014 Patient Education: Patient Medication Summary Completed 12/01/2014 Patient Education: Hypertension Completed 12/01/2014 Appointment: Berenice Cohen WPtel: [address] [place], [place] [phone] (15 min) Moderate 09/15/2014 Visit Plan: [...] not improve. 08/14/2014 Appointment: Berenice Cohen WPtel: [facility] [place] [facility] New Patient 08/14/2014 Patient Education: Patient Medication Summary Completed 08/14/2014 Patient Education: Hypertension Completed 08/14/2014 Referral: Eduardo Suggs Referral Appointment Requested Instructions Comment REFERRAL TO DR SUGGS FOR CARDIAC CLEARANCE [...] to help with stability and prevent falling. . Hypertension - continue with current medications, [...] foot where it is sore COLOGUARD kit a p mechanic will contact you for a colon screen test - it is a colon cancer screening that you will do at home and send in to the a p mechanic. . No fracture of foot - recommended pt to use aspercreme to the foot where it is sore change the amlodipine to one pill twice [...] assure normal liver response to medications. . Apthous ulcer - rx for acyclovir [...] to assure normal liver response to medications. change the amlodipine to 5mg at night [...] back on carbohydrates. prevnar vaccine today . Sinusitis - Pt has acute [...] change in blood pressure readings at home. DECREASE THE AMLODIPINE TO 1 PILL DAILY. [...] for the mammogram in 6 months. . Medicare Exam - today we discussed [...] TWO hours after a meal - try [place] Benedict on your knee. Decrease Salt in diet. [...] appointment with then soon. Pt to try [place] Benedict rub on the knees to help reduce [...]
--- OUTSIDE RECORDS SUMMARY | 2018-06-30 14:20 | XMS REPORT | CCD ---
Author Author Berenice Cohen Organization Berenice Cohen MD, [facility] Address [address] [place] [address] Phone Care Team Providers Care It Security Analyst Name Role Phone PP Unavailable CCM Unavailable Summary Purpose Interface Exchange Insurance Providers Payer name Policy type / Coverage type Covered libertarian ID Effective Begin Date Effective End Date [email or web address] [id number] Unknown Unknown Family history Son Diagnosis Age [...] Unknown Retired 08/14/[address]: 151720195 Never smoker 08/14/[address]: 199528510 Never drinks alcohol 08/14/2014 Allergies, Adverse Reactions, Alerts Substance Reaction Codes Entered Date Inactivated Date Status AUGMENTIN hives, RxNorm: 630093 08/14/2014 No Inactive Date Active RDVOCIF-HSB-DEW REDUCTASE INHIBITORS myalgias, Unknown 2015 No Inactive [...] Fill Instructions Carafate 1 gram tablet RxNorm: 760242 1 Tablet(s) PO QID as needed 05/25/2018 06/03/2018 Active Carafate 1 gram tablet RxNorm: 846631 1 Tablet(s) PO QID as needed 05/25/2018 05/24/2018 Inactive Zithromax Z-Dylan 250 mg tablet RxNorm: 816286 1 Tablet(s) PO UD 05/02/2018 No Stop Date Active glipizide 5 mg tablet RxNorm: 370776 1 Tablet(s) PO BID 201808/15/2018 Active glipizide 5 mg tablet RxNorm: 381808 1 Tablet(s) PO BID 201804/17/2018 Inactive Xanax 0.25 mg tablet RxNorm: 565260 1 Tablet(s) PO TID as needed anxiety 04/11/2018 06/09/2018 Active Zithromax Z-Dylan 250 mg tablet RxNorm: 510946 1 Tablet(s) PO UD 02/06/2018 04/17/2018 Inactive Zyrtec 10 mg tablet RxNorm: 0257533 1 Tablet(s) PO daily 12/0801/06/2018 Inactive Zithromax Z-Dylan 250 mg tablet RxNorm: 111643 1 Tablet(s) PO UD 12/08/2017 02/05/2018 Inactive Lipitor 10 mg tablet RxNorm: 132925 1 Tablet(s) PO QHS 201706/21/2018 Active Lipitor 10 mg tablet RxNorm: 721854 TAKE 1 TABLET BY MOUTH EVERY DAY AT BEDTIME 11/24/2017 No Stop Date Active lisinopril 10 mg tablet RxNorm: 579445 1 Tablet(s) PO daily 08/17/2018 Active prednisone 20 mg tablet RxNorm: 291304 2 Tablet(s) PO daily 11/17/2017 Inactive Keflex 500 mg capsule RxNorm: 357625 1 Capsule(s) PO TID and take a probiotic BID x7days 11/07/2017 11/13/2017 Inactive take with probiotic BID amlodipine 5 mg tablet RxNorm: 018661 1 Tablet(s) PO daily 10/06/2018 Active cefdinir 300 mg capsule RxNorm: 184057 1 Capsule(s) PO BID 09/23/2017 Inactive cefdinir 300 mg capsule RxNorm: 805546 1 Capsule(s) PO BID started by Dr. Davila 09/14/2017 09/13/2017 Inactive betamethasone dipropionate 0.05 % topical cream RxNorm: 148146 1 Application TOP BID 08/29/2017 10/09/2017 Inactive mix with clotrimazole and apply to affected area clotrimazole 1 % topical cream RxNorm: 877167 1 Application TOP BID 08/29/2017 10/09/2017 Inactive mix with betamethasone and apply to affected area nystatin 100,000 unit/mL oral suspension RxNorm: 014377 5 Milliliter(s) PO QID 08/29/2017 09/17/2017 Inactive lisinopril 10 mg tablet RxNorm: 813009 1 Tablet(s) PO daily 11/14/2017 Inactive Kenalog 40 mg/mL suspension for injection RxNorm: 0863072 1 Milliliter(s) Inj 07/28/2017 07/28/2017 Inactive nystatin 100,000 unit/mL oral suspension RxNorm: 956054 5 Milliliter(s) PO QID 07/28/2017 08/06/2017 Inactive Keflex 500 mg capsule RxNorm: 903312 1 Capsule(s) PO TID 201708/03/2017 Inactive Flonase Allergy Relief 50 mcg/actuation nasal spray, suspension RxNorm: 6898351 USE ONE SPRAY(S) IN EACH NOSTRIL TWICE DAILY 07/25/2017 No Stop Date Active meclizine 25 mg tablet RxNorm: 747629 TAKE ONE TABLET BY MOUTH THREE TIMES DAILY NEEDED 07/25/2017 No Stop Date Active Voltaren 1 % topical gel RxNorm: 627691 1 Application TOP QID as needed 06/20/2017 No Stop Date Active Zithromax Z-Dylan 250 mg tablet RxNorm: 258862 1 Tablet(s) PO UD 06/20/2017 07/27/2017 Inactive z pack as directed Keflex 500 mg capsule RxNorm: 514813 1 Capsule(s) PO TID 201706/01/2017 Inactive Zithromax Z-Dylan 250 mg tablet RxNorm: 324597 1 Tablet(s) PO UD 04/27/2017 06/19/2017 Inactive z pack as directed lisinopril 10 mg tablet RxNorm: 811690 1 Tablet(s) PO daily 07/22/2017 Inactive Lipitor 10 mg tablet RxNorm: 070611 1 Tablet(s) PO QHS 201711/06/2017 Inactive Zithromax Z-Dylan 250 mg tablet RxNorm: 483950 1 Tablet(s) PO UD 02/15/2017 04/26/2017 Inactive z pack as directed meclizine 25 mg tablet RxNorm: 123439 TAKE ONE TABLET BY MOUTH THREE TIMES DAILY NEEDED 01/23/2017 07/24/2017 Inactive Zithromax Z-Dylan 250 mg tablet RxNorm: 116857 1 Tablet(s) PO UD 01/05/2017 02/14/2017 Inactive z pack as directed losartan 50 mg tablet RxNorm: 055882 1 Tablet(s) PO daily 201604/10/2017 Inactive amlodipine 5 mg tablet RxNorm: 624814 1 Tablet(s) PO daily 10/11/2017 Inactive Zithromax Z-Dylan 250 mg tablet RxNorm: 918992 1 Tablet(s) PO UD 12/16/2016 01/04/2017 Inactive z pack as directed Zyrtec 10 mg tablet RxNorm: 2472594 1 Tablet(s) PO daily 12/1601/14/2017 Inactive Lipitor 10 mg tablet RxNorm: 853319 1 Tablet(s) PO QHS 201602/22/2017 Inactive Zithromax Z-Dylan 250 mg tablet RxNorm: 114124 1 Tablet(s) PO UD 09/27/2016 12/15/2016 Inactive z pack as directed Lipitor 10 mg tablet RxNorm: 628704 1 Tablet(s) PO QHS 201610/25/2016 Inactive guaifenesin 400 mg tablet RxNorm: 047018 1 Tablet(s) PO BID as needed 08/04/2016 No Stop Date Active cefdinir 300 mg capsule RxNorm: 206006 1 Capsule(s) PO BID started by Dr. Davila 08/04/2016 08/13/2016 Inactive amlodipine 10 mg tablet RxNorm: 899760 1 Tablet(s) PO daily 07/201612/21/2016 Inactive Keflex 500 mg capsule RxNorm: 627892 1 Capsule(s) PO TID 201607/27/2016 Inactive Zyrtec 10 mg tablet RxNorm: 0967898 1 Tablet(s) PO daily 07/0107/30/2016 Inactive Xanax 0.25 mg tablet RxNorm: 482791 1 Tablet(s) PO TID as needed anxiety 07/01/2016 08/27/2016 Inactive amlodipine 5 mg tablet RxNorm: 612690 1 Tablet(s) PO daily 06/201607/30/2016 Inactive Keflex 500 mg capsule RxNorm: 147947 1 Capsule(s) PO TID 201607/03/2016 Inactive Keflex 500 mg capsule RxNorm: 975380 1 Capsule(s) PO TID 201606/23/2016 Inactive Keflex 500 mg capsule RxNorm: 008483 1 Capsule(s) PO TID 201606/30/2016 Inactive Flonase Allergy Relief 50 mcg/actuation nasal spray, suspension RxNorm: 3876876 USE ONE SPRAY(S) IN EACH NOSTRIL TWICE DAILY 06/20/2016 05/15/2017 Inactive amlodipine 10 mg tablet RxNorm: 572435 1 Tablet(s) PO daily 04/201606/28/2016 Inactive Lipitor 10 mg tablet RxNorm: 430065 1 Tablet(s) PO QHS 201608/14/2016 Inactive Flonase Allergy Relief 50 mcg/actuation nasal spray, suspension RxNorm: 5873090 USE ONE SPRAY(S) IN EACH NOSTRIL TWICE DAILY 04/18/2016 05/17/2016 Inactive cephalexin 500 mg capsule RxNorm: 588850 1 Capsule(s) PO TID 04/05/2016 Inactive take with probiotics BID amlodipine 10 mg tablet RxNorm: 396683 1 Tablet(s) PO daily 02/201605/29/2016 Inactive Bactroban 2 % topical cream RxNorm: 042361 1 Application TOP BID 03/30/2016 04/08/2016 Inactive Zithromax Z-Dylan 250 mg tablet RxNorm: 223471 1 Tablet(s) PO UD 03/10/2016 05/15/2016 Inactive z pack as directed Keflex 500 mg capsule RxNorm: 099644 1 Capsule(s) PO TID 201502/25/2016 Inactive take with probiotics BID acyclovir 800 mg tablet RxNorm: 490174 1 Tablet(s) PO TID 01/2402/21/2016 Inactive Zithromax Z-Dylan 250 mg tablet RxNorm: 067375 1 Tablet(s) PO UD 01/19/2016 01/24/2016 Inactive z pack Flonase Allergy Relief 50 mcg/actuation nasal spray, suspension RxNorm: 2500891 USE ONE SPRAY(S) IN EACH NOSTRIL TWICE DAILY 12/28/2015 02/25/2016 Inactive Kenalog 40 mg/mL suspension for injection RxNorm: 9955093 Milliliter(s) Inj 12/18/2015 12/18/2015 Inactive Keflex 500 mg capsule RxNorm: 035964 1 Capsule(s) PO TID 201512/24/2015 Inactive Zithromax Z-Dylan 250 mg tablet RxNorm: 120198 1 Tablet(s) PO UD 12/09/2015 12/23/2015 Inactive z pack meclizine 25 mg tablet RxNorm: 752649 1 Tablet(s) PO TID as needed 12/09/2015 12/08/2015 Inactive meclizine 25 mg tablet RxNorm: 579922 1 Tablet(s) PO TID as needed 12/09/2015 02/26/2016 Inactive Keflex 500 mg capsule RxNorm: 919594 1 Capsule(s) PO TID 201511/22/2015 Inactive Cipro 500 mg tablet RxNorm: 543913 1 Tablet(s) PO BID 201511/13/2015 Inactive Keflex 500 mg capsule RxNorm: 532850 1 Capsule(s) PO TID 201510/30/2015 Inactive Xanax 0.25 mg tablet RxNorm: 343778 1 Tablet(s) PO TID as needed anxiety 09/18/2015 11/13/2015 Inactive Keflex 500 mg capsule RxNorm: 493902 1 Capsule(s) PO TID 201508/19/2015 Inactive losartan 50 mg tablet RxNorm: 287007 1 Tablet(s) PO daily 201507/07/2015 Inactive Pepcid 20 mg tablet RxNorm: 231180 1 Tablet(s) PO BID 201507/07/2015 Inactive Pepcid 20 mg tablet RxNorm: 674668 1 Tablet(s) PO BID 201501/31/2016 Inactive losartan 50 mg tablet RxNorm: 952309 1 Tablet(s) PO daily 201501/31/2016 Inactive prednisone 20 mg tablet RxNorm: 506118 2 Tablet(s) PO daily 06/22/2015 Inactive prednisone 20 mg tablet RxNorm: 489327 2 Tablet(s) PO daily 12/23/2015 Inactive Diflucan 100 mg tablet RxNorm: 439391 TAKE ONE TABLET BY MOUTH ONCE DAILY 06/12/2015 12/23/2015 Inactive Zithromax Z-Dylan 250 mg tablet RxNorm: 635094 1 Tablet(s) PO UD 06/05/2015 07/06/2015 Inactive z pack amlodipine 5 mg tablet RxNorm: 905512 1 Tablet(s) PO daily 03/29/2016 Inactive Zetia 10 mg tablet RxNorm: 345656 1 Tablet(s) PO daily 201506/14/2015 Inactive valsartan 160 mg tablet RxNorm: 518650 1 Tablet(s) PO daily 07/07/2015 Inactive Lipitor 10 mg tablet RxNorm: 513259 1 Tablet(s) PO QHS 201505/18/2015 Inactive Lipitor 10 mg tablet RxNorm: 889429 1 Tablet(s) PO QHS 201504/27/2015 Inactive Zithromax 250 mg tablet RxNorm: 271715 Tablet(s) PO UD 201504/28/2015 Inactive Keflex 500 mg capsule RxNorm: 635137 1 Capsule(s) PO TID 201503/22/2015 Inactive Keflex 500 mg capsule RxNorm: 733365 1 Capsule(s) PO TID 201504/01/2015 Inactive Xanax 0.25 mg tablet RxNorm: 326421 1 Tablet(s) PO TID as needed anxiety 03/12/2015 07/04/2016 Inactive carvedilol 25 mg tablet RxNorm: 690723 1 Tablet(s) PO BID 03/1201/31/2016 Inactive amlodipine 5 mg tablet RxNorm: 305355 1 Tablet(s) PO BID 201505/18/2015 Inactive Diflucan 100 mg tablet RxNorm: 899083 1 Tablet(s) PO daily 03/21/2015 Inactive Diflucan 100 mg tablet RxNorm: 638371 1 Tablet(s) PO daily 02/14/2015 Inactive Diflucan 100 mg tablet RxNorm: 133332 1 Tablet(s) PO daily 06/201401/05/2015 Inactive Diflucan 100 mg tablet RxNorm: 403044 1 Tablet(s) PO daily 06/201412/31/2014 Inactive nystatin 100,000 unit/mL oral suspension RxNorm: 357023 5 Milliliter(s) PO QID 12/24/2014 06/14/2015 Inactive nystatin 100,000 unit/mL oral suspension RxNorm: 171493 5 Milliliter(s) PO QID 12/24/2014 12/23/2014 Inactive Zithromax 250 mg tablet RxNorm: 886417 1 Tablet(s) PO daily 12/19/2014 Inactive Zithromax 250 mg tablet RxNorm: 779176 1 Tablet(s) PO daily 12/14/2014 Inactive Flonase Allergy Relief 50 mcg/actuation nasal spray, suspension RxNorm: 1 Valdez NASAL BID 12/11/2014 12/10/2014 Inactive Flonase Allergy Relief 50 mcg/actuation nasal spray, suspension RxNorm: 5762213 1 [place]dez NASAL BID 12/11/20142015 Inactive amlodipine 5 mg tablet RxNorm: 574368 2 Tablet(s) PO daily 11/13/2014 Inactive amlodipine 5 mg tablet RxNorm: 033871 2 Tablet(s) PO daily 03/11/2015 Inactive Lotrisone 1 %-0.05 % topical cream RxNorm: 800844 1 TOP BID until healed 10/17/2014 10/30/2014 Inactive Lotrisone 1 %-0.05 % topical cream RxNorm: 232768 1 TOP BID until healed 10/16/2014 10/16/2014 Inactive Lotrisone 1 %-0.05 % topical cream RxNorm: 175644 1 TOP BID until healed 10/06/2014 10/15/2014 Inactive Keflex 500 mg capsule RxNorm: 437532 1 Capsule(s) PO TID 201408/11/2014 Inactive Keflex 500 mg capsule RxNorm: 399325 1 Capsule(s) PO TID 201408/18/2014 Inactive clotrimazole 1 % topical solution RxNorm: 167636 1 Drop(s) TOP BID No Start Date Active Vitamin D3 5,000 unit tablet RxNorm: 975583 1 Tablet(s) PO daily No Start Date Active guaifenesin 400 mg tablet RxNorm: 735213 1 Tablet(s) PO BID as needed No Start Date 08/03/2016 Inactive Lotrisone 1 %-0.05 % topical cream RxNorm: 422972 1 TOP BID until healed No Start Date 10/05/2014 Inactive lisinopril 40 mg tablet RxNorm: 635365 1 Tablet(s) PO daily No Start Date 05/18/2015 Inactive amlodipine 5 mg tablet RxNorm: 033218 1 Tablet(s) PO daily No Start Date 11/13/2014 Inactive indapamide 1.25 mg tablet RxNorm: 207129 1 Tablet(s) PO daily No Start Date 01/31/2016 Inactive aspirin 81 mg tablet RxNorm: 621083 1 Tablet(s) PO daily No Start Date 02/07/2017 Inactive Medication Administered Medication Codes Instructions Start Date Status Kenalog 40 mg/mL suspension for injection RxNorm: 3168641 1Milliliter 07/28/2017 No longer Active Kenalog 40 mg/mL suspension for injection RxNorm: 1228606 Milliliter 12/18/2015 No longer Active Immunizations Vaccine [...] 30.8 pg 04/11/2018 Cbc With Differential Ord2 Caroline% 13.0 % 04/11/2018 Cbc With Differential Ord2 [...] 3.09 K/ul 04/11/2018 Cbc With Differential Ord2 Caroline ABS# 1.2 K/ul 04/11/2018 Cbc With Differential Ord2 Eos ABS# 0.2 K/ul 04/11/2018 Cbc With Differential Ord2 Baso ABS# 0.1 K/ul 04/11/2018 Tsh Ord6 TSH (3rd IS) 2.85 uIU/mL 04/11/2018 %Hba1C Fkr101 % HbA1c 19429-5 7.1 % 04/11/2018 %Hba1C Hxt887 Gluc Ave 157 mg/dL 04/11/2018 Lipid Ord30 CHOL 150 mg/dL 04/11/2018 Lipid Ord30 HDL 38.0 mg/dl 04/11/2018 Lipid Ord30 TRIG 203 mg/dL 04/11/2018 Lipid Ord30 LDL 71 mg/dL 04/11/2018 Lipid Ord30 C/HDL 3.9 Ratio 04/11/2018 Vitamin D 25 Oh Erk3374 VITAMIN D, 25 HYDROXY 48.86 ng/mL Comp Metabolic Zip094 NA 138 mEq/L 04/11/2018 Comp Metabolic Fde325 K 4.4 mEq/L 04/11/2018 Comp Metabolic Tkq447 CL 101 mEq/L 04/11/2018 Comp Metabolic Icw705 CO2 29.0 mEq/L 04/11/2018 Comp Metabolic Lud773 ANION GAP 12 04/11/2018 Comp Metabolic Zem502 GLUCOSE 120 mg/dL 04/11/2018 Comp Metabolic Lbf621 Creat 1.2 mg/dL 04/11/2018 Comp Metabolic Izr606 eGFR 47 ml/min/1.73m2 04/11/2018 Comp Metabolic Hyu489 BUN 23 mg/dL 04/11/2018 Comp Metabolic Xbz702 B/C Ratio 19.7 Ratio 04/11/2018 Comp Metabolic Vhb915 CALCIUM 10.3 mg/dL 04/11/2018 Comp Metabolic Bst555 ALK PHOS 40 U/L 04/11/2018 Comp Metabolic Yvn780 AST(SGOT) 15 U/L 04/11/2018 Comp Metabolic Wru826 ALT(SGPT) 9 U/L 04/11/2018 Comp Metabolic Mud086 BILI T 1.0 mg/dL 04/11/2018 Comp Metabolic Bik598 ALBUMIN 4.3 g/dL 04/11/2018 Comp Metabolic Qnv502 TPRO 6.8 g/dL 04/11/2018 Comp Metabolic Bty157 GLOB 2.5 g/dL 04/11/2018 Comp Metabolic Bkr832 A/G Ratio 1.7 Ratio 04/11/2018 Comp Metabolic Cxg286 Osmo 281 mOsmo 04/11/2018 %Hba1C Vvi917 % HbA1c 03691-6 6.5 % 12/01/2016 %Hba1C Kud309 Gluc Ave 140 mg/dL 12/01/2016 Lipid Ord30 [...] 31.3 pg 04/12/2016 Cbc With Differential Ord2 Caroline% 13.3 % 04/12/2016 Cbc With Differential Ord2 [...] 2.85 K/ul 04/12/2016 Cbc With Differential Ord2 Caroline ABS# 1.1 K/ul 04/12/2016 Cbc With Differential Ord2 Eos ABS# 0.1 K/ul 04/12/2016 Cbc With Differential Ord2 Baso ABS# 0.0 K/ul 04/12/2016 Comp Metabolic Xya779 NA 129 mEq/L 04/12/2016 Comp Metabolic Rwg363 K 4.0 mEq/L 04/12/2016 Comp Metabolic Rwo855 CL 93 mEq/L 04/12/2016 Comp Metabolic Ook586 CO2 29.0 mEq/L 04/12/2016 Comp Metabolic Kkt588 ANION GAP 11 04/12/2016 Comp Metabolic Unm860 GLUCOSE 100 mg/dL 04/12/2016 Comp Metabolic Fws846 Creat 1.0 mg/dL 04/12/2016 Comp Metabolic Wpv267 eGFR 55 ml/min/1.73m2 04/12/2016 Comp Metabolic Hln690 BUN 19 mg/dL 04/12/2016 Comp Metabolic Nlt017 B/C Ratio 18.8 Ratio 04/12/2016 Comp Metabolic Hfs339 CALCIUM 9.3 mg/dL 04/12/2016 Comp Metabolic Jpn580 ALK PHOS 38 U/L 04/12/2016 Comp Metabolic Vpk363 AST(SGOT) 17 U/L 04/12/2016 Comp Metabolic Akn336 ALT(SGPT) 11 U/L 04/12/2016 Comp Metabolic Gsl786 BILI T 1.0 mg/dL 04/12/2016 Comp Metabolic Pep420 ALBUMIN 4.2 g/dL 04/12/2016 Comp Metabolic Ftz323 TPRO 6.6 g/dL 04/12/2016 Comp Metabolic Lcj959 GLOB 2.4 g/dL 04/12/2016 Comp Metabolic Jgi264 A/G Ratio 1.8 Ratio 04/12/2016 Comp Metabolic Wyk339 Osmo 261 mOsmo 04/12/2016 Lipid Ord30 CHOL 265 mg/dL 04/12/2016 Lipid Ord30 HDL 42.0 mg/dl 04/12/2016 Lipid Ord30 TRIG 246 mg/dL 04/12/2016 Lipid Ord30 LDL 174 mg/dL 04/12/2016 Lipid Ord30 C/HDL 6.3 Ratio 04/12/2016 Tsh Ord6 hTSH II 2.49 uIU/mL 04/12/2016 Tsh Ord6 hTSH II 1.83 uIU/mL 06/12/2015 Comp Metabolic Njv258 NA 137 mEq/L 06/12/2015 Comp Metabolic Caa449 K 4.4 mEq/L 06/12/2015 Comp Metabolic Mna514 CL 103 mEq/L 06/12/2015 Comp Metabolic Wgg788 CO2 27.0 mEq/L 06/12/2015 Comp Metabolic Azt259 ANION GAP 11 06/12/2015 Comp Metabolic Upe927 GLUCOSE 87 mg/dL 06/12/2015 Comp Metabolic Lvx381 Creat 1.3 mg/dL 06/12/2015 Comp Metabolic Xmf114 eGFR 43 ml/min/1.73m2 06/12/2015 Comp Metabolic Jel410 BUN 32 mg/dL 06/12/2015 Comp Metabolic Nmj479 B/C Ratio 25.4 Ratio 06/12/2015 Comp Metabolic Xyu762 CALCIUM 9.5 mg/dL 06/12/2015 Comp Metabolic Cmu792 ALK PHOS 36 U/L 06/12/2015 Comp Metabolic Txr177 AST(SGOT) 16 U/L 06/12/2015 Comp Metabolic Qxm048 ALT(SGPT) 17 U/L 06/12/2015 Comp Metabolic Wxr003 BILI T 1.0 mg/dL 06/12/2015 Comp Metabolic Mzg891 ALBUMIN 4.1 g/dL 06/12/2015 Comp Metabolic Nhe724 TPRO 6.5 g/dL 06/12/2015 Comp Metabolic Ydk866 GLOB 2.5 g/dL 06/12/2015 Comp Metabolic Kvk324 A/G Ratio 1.7 Ratio 06/12/2015 Comp Metabolic Cmu526 Osmo 280 mOsmo 06/12/2015 Lipid Ord30 CHOL [...] 30.6 pg 06/12/2015 Cbc With Differential Ord2 Caroline% 11.0 % 06/12/2015 Cbc With Differential Ord2 [...] 1.96 K/ul 06/12/2015 Cbc With Differential Ord2 Caroline ABS# 0.9 K/ul 06/12/2015 Cbc With Differential [...] 30.3 pg 03/12/2015 Cbc With Differential Ord2 Caroline% 10.7 % 03/12/2015 Cbc With Differential Ord2 [...] 2.00 K/ul 03/12/2015 Cbc With Differential Ord2 Caroline ABS# 1.0 K/ul 03/12/2015 Cbc With Differential Ord2 Eos ABS# 0.1 K/ul 03/12/2015 Cbc With Differential Ord2 Baso ABS# 0.0 K/ul 03/12/2015 Cbc With Differential Ord2 New Analyzer Notice Please note new ref ranges starting 03-11-2015 due to implemntation of new five part differential hematolgy analyzer. 03/12/2015 Comp Metabolic Zsd376 NA 139 mEq/L 03/12/2015 Comp Metabolic Bar994 K 4.2 mEq/L 03/12/2015 Comp Metabolic Yzk817 CL 101 mEq/L 03/12/2015 Comp Metabolic Rmd291 CO2 28.0 mEq/L 03/12/2015 Comp Metabolic Kmv399 ANION GAP 14 03/12/2015 Comp Metabolic Yvt662 GLUCOSE 78 mg/dL 03/12/2015 Comp Metabolic Mdl752 Creat 1.1 mg/dL 03/12/2015 Comp Metabolic Qsa516 eGFR 51 ml/min/1.73m2 03/12/2015 Comp Metabolic Scl869 BUN 17 mg/dL 03/12/2015 Comp Metabolic Cqu158 B/C Ratio 15.6 Ratio 03/12/2015 Comp Metabolic Knh478 CALCIUM 9.4 mg/dL 03/12/2015 Comp Metabolic Tbs488 ALK PHOS 46 U/L 03/12/2015 Comp Metabolic Aak861 AST(SGOT) 16 U/L 03/12/2015 Comp Metabolic Nbo493 ALT(SGPT) 12 U/L 03/12/2015 Comp Metabolic Etc205 BILI T 0.8 mg/dL 03/12/2015 Comp Metabolic Iqa808 ALBUMIN 4.1 g/dL 03/12/2015 Comp Metabolic Puf186 TPRO 6.6 g/dL 03/12/2015 Comp Metabolic Bfm098 GLOB 2.6 g/dL 03/12/2015 Comp Metabolic Aag486 A/G Ratio 1.6 Ratio 03/12/2015 Comp Metabolic Run370 Osmo 278 mOsmo 03/12/2015 Lipid Ord30 CHOL [...] hTSH II 3.15 uIU/mL 12/01/2014 Comp Metabolic Slf686 NA 132 mEq/L 12/01/2014 Comp Metabolic Olj204 K 4.4 mEq/L 12/01/2014 Comp Metabolic Zfo434 CL 99 mEq/L 12/01/2014 Comp Metabolic Yeq117 CO2 27.0 mEq/L 12/01/2014 Comp Metabolic Avk744 ANION GAP 10 12/01/2014 Comp Metabolic Nqa165 GLUCOSE 86 mg/dL 12/01/2014 Comp Metabolic Uvl705 Creat 1.2 mg/dL 12/01/2014 Comp Metabolic Rup752 eGFR 46 ml/min/1.73m2 12/01/2014 Comp Metabolic Ace198 BUN 32 mg/dL 12/01/2014 Comp Metabolic Xad465 B/C Ratio 27.1 Ratio 12/01/2014 Comp Metabolic Bia397 CALCIUM 9.4 mg/dL 12/01/2014 Comp Metabolic Bgl098 ALK PHOS 35 U/L 12/01/2014 Comp Metabolic Yol363 AST(SGOT) 14 U/L 12/01/2014 Comp Metabolic Uwp034 ALT(SGPT) 13 U/L 12/01/2014 Comp Metabolic Rsr931 BILI T 0.8 mg/dL 12/01/2014 Comp Metabolic Hiy338 ALBUMIN 4.0 g/dL 12/01/2014 Comp Metabolic Ufd539 TPRO 6.8 g/dL 12/01/2014 Comp Metabolic Dpx681 GLOB 2.8 g/dL 12/01/2014 Comp Metabolic Asc495 A/G Ratio 1.4 Ratio 12/01/2014 Comp Metabolic Yjl703 Osmo 271 mOsmo 12/01/2014 Review of Systems [...] FLU VACC PRSV FREE INC ANTIG CPT-4: 21180 11/13/2017 ADMIN INFLUENZA VIRUS VAC CPT-4: G0008 11/13/2017 TRIAMCINOLONE ACET INJ NOS CPT-4: J3301 07/28/2017 PPPS, SUBSEQ VISIT CPT -4: G0439 02/08/2017 URINALYSIS NONAUTO W/O SCOPE CPT-4: 97427 08/15/2016 PPPS, SUBSEQ VISIT CPT -4: G0439 02/01/2016 TRIAMCINOLONE ACET INJ NOS CPT-4: J3301 12/18/2015 ADMIN INFLUENZA VIRUS VAC CPT-4: G0008 11/26/2015 FLU VACC 4 GISELA 3 YRS PLUS IM Formatting Model/CDA Sections, Assigned to/Malina Mazariegos CT: [id number] CPT-4: 33423Nhellou 11/26/2015 URINALYSIS NONAUTO W/O SCOPE CPT-4: 07724 11/20/2015 URINALYSIS NONAUTO W/O SCOPE CPT-4: 31119 11/13/2015 IMMUNIZATION ADMIN CPT -4: 26691 12/01/2014 FLU VACC 4 GISELA 3 YRS PLUS IM Formatting Model/CDA Sections, Assigned to/Malina Mazariegos CT: [id number] CPT-4: 38103Usjptup 12/01/2014 Vital Signs Date Vital 05/22/2018 Blood Pressure 1: 128/50 Code : 8480-6 BMI: 24.6 Code : 70899-7 Heart Rate 1 : 76 bpm Height: 5'1" SpO2: 98% Weight: 130 lbs 04/11/2018 Blood Pressure 1: 142/56 Code : 8480-6 BMI: 25.1 Code : 34412-8 Heart Rate 1 : 68 bpm Height: 5'1" SpO2: 96% Weight: 133 lbs 02/06/2018 Blood Pressure 1: 142/60 Code : 8480-6 BMI: 25.3 Code : 82014-3 Heart Rate 1 : 68 bpm Height: 5'1" SpO2: 99% Temperature: 37.0 (C) / 98.6 (F) Weight: 134 lbs 12/08/2017 Blood Pressure 1: 140/52 Code : 8480-6 BMI: 25.5 Code : 39149-0 Heart Rate 1 : 77 bpm Height: 5'1" SpO2: 96% Temperature: 36.6 (C) / 97.9 (F) Weight: 135 lbs 11/13/2017 Blood Pressure 1: 134/54 Code : 8480-6 BMI: 24.8 Code : 49701-4 Heart Rate 1 : 73 bpm Height: 5'1" SpO2: 98% Weight: 131 lbs 08/29/2017 Blood Pressure 1: 162/64 Code : 8480-6 BMI: 24.9 Code : 28311-2 Heart Rate 1 : 61 bpm Height: 5'1" SpO2: 96% Weight: 132 lbs 07/28/2017 Blood Pressure 1: 148/62 Code : 8480-6 BMI: 25.1 Code : 40311-5 Heart Rate 1 : 67 bpm Height: 5'1" SpO2: 99% Temperature: 36.4 (C) / 97.5 (F) Weight: 133 lbs 06/20/2017 Blood Pressure 1: 140/52 Code : 8480-6 BMI: 25.3 Code : 83060-0 Heart Rate 1 : 64 bpm Height: 5'1" SpO2: 98% Weight: 134 lbs 05/26/2017 Blood Pressure 1: 140/56 Code : 8480-6 BMI: 25.7 Code : 38544-3 Heart Rate 1 : 74 bpm Height: 5'1" SpO2: 95% Weight: 136 lbs 04/24/2017 Blood Pressure 1: 140/68 Code : 8480-6 BMI: 24.6 Code : 46669-8 Heart Rate 1 : 67 bpm Height: 5'1" SpO2: 97% Weight: 130 lbs 02/08/2017 Blood Pressure 1: 134/76 Code : 8480-6 BMI: 24.9 Code : 49131-3 Heart Rate 1 : 67 bpm Height: 5'1" SpO2: 98% Waist Measure (cm): 80174 cm Weight: 132 lbs 12/22/2016 Blood Pressure 1: 156/80 Code : 8480-6 BMI: 24.2 Code : 07613-2 Heart Rate 1 : 65 bpm Height: 5'1" SpO2: 98% Weight: 128 lbs 12/16/2016 Blood Pressure 1: 138/62 Code : 8480-6 BMI: 23.8 Code : 07395-9 Heart Rate 1 : 63 bpm Height: 5'1" SpO2: 98% Weight: 126 lbs 08/15/2016 Blood Pressure 1: 130/60 Code : 8480-6 BMI: 25.3 Code : 70281-9 Heart Rate 1 : 72 bpm Height: 5'1" SpO2: 95% Weight: 134 lbs 08/02/2016 Blood Pressure 1: 160/62 Code : 8480-6 BMI: 25.3 Code : 56787-0 Heart Rate 1 : 67 bpm Height: 5'1" SpO2: 97% Weight: 134 lbs 07/21/2016 Blood Pressure 1: 148/66 Code : 8480-6 BMI: 25.9 Code : 47333-7 Heart Rate 1 : 71 bpm Height: 5'1" SpO2: 97% Temperature: 36.8 (C) / 98.2 (F) Weight: 137 lbs 07/01/2016 Blood Pressure 1: 142/72 Code : 8480-6 BMI: 26.5 Code : 74838-7 Heart Rate 1 : 68 bpm Height: 5'1" SpO2: 94% Weight: 140 lbs 05/16/2016 Blood Pressure 1: 162/76 Code : 8480-6 Blood Pressure 1: 138/68 Code: 8480-6 BMI: 25.7 Code: 89776-8 Heart Rate 1: 58 bpm Height: 5'1" SpO2: 98% Weight: 136 lbs 04/06/2016 Blood Pressure 1: 162/72 Code : 8480-6 Blood Pressure 1: 138/74 Code: 8480-6 BMI: 25.7 Code: 16156-1 Heart Rate 1: 75 bpm Height: 5'1" SpO2: 97% Weight: 136 lbs 03/30/2016 Blood Pressure 1: 188/80 Code : 8480-6 BMI: 26.3 Code : 49257-6 Heart Rate 1 : 75 bpm Height: 5'1" SpO2: 98% Weight: 139 lbs 02/01/2016 Blood Pressure 1: 140/72 Code : 8480-6 BMI: 25.3 Code : 36224-6 Heart Rate 1 : 65 bpm Height: 5'1" SpO2: 97% Waist Measure (cm): 84 cm Weight: 134 lbs 01/25/2016 Blood Pressure 1: 140/74 Code : 8480-6 BMI: 25.1 Code : 07259-4 Heart Rate 1 : 66 bpm Height: 5'1" SpO2: 98% Weight: 133 lbs 12/24/2015 Blood Pressure 1: 142/66 Code : 8480-6 BMI: 24.9 Code : 57677-7 Heart Rate 1 : 54 bpm Height: 5'1" SpO2: 97% Weight: 132 lbs 12/18/2015 Blood Pressure 1: 152/62 Code : 8480-6 BMI: 25.5 Code : 15460-7 Heart Rate 1 : 66 bpm Height: 5'1" SpO2: 96% Weight: 135 lbs 12/11/2015 Blood Pressure 1: 136/54 Code : 8480-6 Heart Rate 1: 72 bpm SpO2: 98% Weight: 137 lbs 11/26/2015 Blood Pressure 1: 142/70 Code : 8480-6 BMI: 25.3 Code : 84325-5 Heart Rate 1 : 64 bpm Height: 5'1" SpO2: 97% Weight: 134 lbs 11/20/2015 Blood Pressure 1: 154/70 Code : 8480-6 Heart Rate 1: 65 bpm SpO2: 98% 10/23/2015 Blood Pressure 1: 138/62 Code : 8480-6 Heart Rate 1: 55 bpm SpO2: 98% 10/21/2015 Blood Pressure 1: 142/68 Code : 8480-6 BMI: 25.7 Code : 85880-5 Heart Rate 1 : 73 bpm Height: 5'1" SpO2: 98% Weight: 136 lbs 07/15/2015 Blood Pressure 1: 130/60 Code : 8480-6 BMI: 26.6 Code : 43738-1 Heart Rate 1 : 70 bpm Height: 5'1" SpO2: 97% Weight: 141 lbs 06/15/2015 Blood Pressure 1: 118/64 Code : 8480-6 BMI: 24.9 Code : 56843-2 Heart Rate 1 : 66 bpm Height: 5'1" SpO2: 99% Weight: 132 lbs 06/05/2015 Blood Pressure 1: 142/60 Code : 8480-6 Blood Pressure 1: 135/58 Code: 8480-6 Heart Rate 1: 64 bpm SpO2: 99% 05/19/2015 Blood Pressure 1: 146/60 Code : 8480-6 BMI: 27.1 Code : 85886-6 Heart Rate 1 : 66 bpm Height: 5'1" SpO2: 97% Weight: 143 lbs 8 oz 04/24/2015 Blood Pressure 1: 148/58 Code : 8480-6 BMI: 25.9 Code : 61907-1 Heart Rate 1 : 61 bpm Height: 5'1" SpO2: 98% Weight: 137 lbs 03/12/2015 Blood Pressure 1: 140/72 Code : 8480-6 BMI: 25.1 Code : 01589-6 Heart Rate 1 : 68 bpm Height: 5'1" SpO2: 98% Weight: 133 lbs 01/12/2015 Blood Pressure 1: 146/60 Code : 8480-6 BMI: 25.7 Code : 29723-6 Heart Rate 1 : 48 bpm Height: 5'1" SpO2: 97% Weight: 136 lbs 12/11/2014 Blood Pressure 1: 144/56 Code : 8480-6 Blood Pressure 1: 125/65 Code: 8480-6 BMI: 25.1 Code: 15026-9 Heart Rate 1: 56 bpm Height: 5'1" SpO2: 96% Weight: 133 lbs 12/01/2014 Blood Pressure 1: 136/60 Code : 8480-6 Heart Rate 1: 56 bpm SpO2: 96% Weight: 131 lbs 5 oz 08/14/2014 Blood Pressure 1: 132/72 Code : 8480-6 BMI: 25.5 Code : 24247-6 Heart Rate 1 : 73 bpm Height: [...] Diagnosis: Unilateral primary osteoarthritis, left knee[ICD10: M17.12] Doris Cohen MD, [facility] CPT-4: 76895 05/22/2018 ([id number]) 54663 EST. PATIENT, LEVEL IV Diagnosis: Essential (primary) hypertension[ICD10: I10] Diagnosis: Other abnormal glucose[ICD10: R73.09] Diagnosis: Mixed hyperlipidemia[ICD10: E78.2] Diagnosis: Vitamin D deficiency, unspecified[ICD10: E55.9] Berenice Cohen MD, [facility] CPT-4: 17073 04/11/2018 08754 EST. PATIENT, LEVEL IV Diagnosis: Other acute sinusitis[ICD10: J01.80] Diagnosis: Other allergic rhinitis[ICD10: J30.89] Evelyn Cohen MD, [facility] CPT-4: 97822 02/06/2018 46443 EST. PATIENT, LEVEL III Diagnosis: Other allergic rhinitis[ICD10: J30.89] Diagnosis: Other acute sinusitis[ICD10: J01.80] Evelyn Cohen MD, [facility] CPT-4: 04015 12/08/2017 ([id number]) 76056 EST. PATIENT, LEVEL IV Diagnosis: Essential (primary) hypertension[ICD10: I10] Diagnosis: Chronic maxillary sinusitis[ICD10: J32.0] Diagnosis: Mixed hyperlipidemia[ICD10: E78.2] Diagnosis: Other abnormal glucose[ICD10: R73.09] Berenice Cohen MD, [facility] CPT-4: 34645 11/13/2017 ([id number]) 25443 EST. PATIENT, LEVEL III Diagnosis: Tinea corporis[ICD10: B35.4] Diagnosis: Essential (primary) hypertension[ICD10: I10] Doris Cohen MD, [facility] CPT-4: 83081 08/29/2017 ([id number]) 18316 EST. PATIENT, LEVEL III Diagnosis: Acute recurrent maxillary sinusitis[ICD10: J01.01] Diagnosis: Other allergic rhinitis[ICD10: J30.89] Doris Cohen MD, [facility] CPT-4: 92582 07/28/2017 21060 EST. PATIENT, LEVEL IV Diagnosis: Other acute sinusitis[ICD10: J01.80] Diagnosis: Other allergic rhinitis[ICD10: J30.89] Diagnosis: Otalgia, bilateral[ICD10: H92.03] Diagnosis: Pain in right knee[ICD10: M25.561] Diagnosis: Pain in left knee[ICD10: M25.562] Evelyn Cohen MD, [facility] CPT -4: 12459 06/20/2017 31050 EST. PATIENT, LEVEL IV Diagnosis: Other acute sinusitis[ICD10: J01.80] Diagnosis: Other allergic rhinitis[ICD10: J30.89] Diagnosis: Gastro-esophageal reflux disease without esophagitis[ICD10: K21.9] Evelyn Cohen MD, [facility] CPT-4: 94139 05/26/2017 01220 EST. PATIENT, LEVEL III Diagnosis: Essential (primary) hypertension[ICD10: I10] Evelyn Cohen MD, [facility] CPT-4: 11450 04/24/2017 ([id number]) 35702 EST. PATIENT, LEVEL IV Diagnosis: Essential (primary) hypertension[ICD10: I10] Diagnosis: Other abnormal glucose[ICD10: R73.09] Diagnosis: Mixed hyperlipidemia[ICD10: E78.2] Berenice Cohen MD, [facility] CPT-4: 69992 12/22/2016 23283 EST. PATIENT, LEVEL IV Diagnosis: Other acute sinusitis[ICD10: J01.80] Diagnosis: Other allergic rhinitis[ICD10: J30.89] Evelyn Cohen MD, [facility] CPT-4: 15448 12/16/2016 ([id number]) 64819 EST. PATIENT, LEVEL IV Diagnosis: Essential (primary) hypertension[ICD10: I10] Diagnosis: Mixed hyperlipidemia[ICD10: E78.2] Diagnosis: Dysuria[ICD10: R30.0] Berenice Cohen MD, [facility] CPT-4: 41895 08/15/2016 37172 EST. PATIENT, LEVEL III Diagnosis: Other acute sinusitis[ICD10: J01.80] Diagnosis: Other allergic rhinitis[ICD10: J30.89] Diagnosis: Otalgia, bilateral[ICD10: H92.03] Evelyn Cohen MD, [facility] CPT -4: 86067 08/02/2016 ([id number]) 59006 EST. PATIENT, LEVEL III Diagnosis: Acute recurrent maxillary sinusitis[ICD10: J01.01] Diagnosis: Otalgia, right ear[ICD10: H92.01] Doris Cohen MD, [facility] CPT-4: 06131 07/21/2016 18335 EST. PATIENT, LEVEL III Diagnosis: Dysuria[ICD10: R30.0] Diagnosis: Other allergic rhinitis[ICD10: J30.89] Evelyn Cohen MD, [facility] CPT-4: 56071 07/01/2016 ([id number]) 10732 EST. PATIENT, LEVEL IV Diagnosis: Essential (primary) hypertension[ICD10: I10] Diagnosis: Mixed hyperlipidemia[ICD10: E78.2] Berenice Cohen MD, [facility] CPT-4: 42292 05/16/2016 43637 EST. PATIENT, LEVEL III Diagnosis: Mixed hyperlipidemia[ICD10: E78.2] Diagnosis: Essential (primary) hypertension[ICD10: I10] Diagnosis: Laceration without foreign body of left hand, subsequent encounter[ ICD10: S61.412D] Evelyn Cohen MD, [facility] CPT-4: 59764 04/06/2016 ([id number]) 29702 EST. PATIENT, LEVEL III Diagnosis: Essential (primary) hypertension[ICD10: I10] Berenice Cohen MD, [facility] CPT-4: 58628 03/30/2016 ([id number]) 08929 EST. 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 PATIENT, LEVEL III Diagnosis: Essential (primary) hypertension[ICD10: I10] [facility] CPT-4: 93721 12/24/2015 63327 EST. PATIENT, LEVEL III Diagnosis: Other acute sinusitis[ICD10: J01.80] Diagnosis: Other allergic rhinitis[ICD10: J30.89] Evelyn Cohen MD, [facility] CPT-4: 84676 12/18/2015 ([id number]) Miscellaneous no charge Diagnosis: Essential (primary) hypertension[ICD10: I10] Evelyn Cohen MD, [facility] CPT-4: 83727 12/11/2015 ([id number]) 80131 EST. PATIENT, LEVEL IV Diagnosis: Essential (primary) hypertension[ICD10: I10] Diagnosis: Other abnormal glucose[ICD10: R73.09] Diagnosis: Encounter for immunization[ICD10: Z23] Berenice Cohen MD, [facility] CPT-4: 50281 11/26/2015 ([id number]) Miscellaneous no charge Diagnosis: Bitten by dog, initial encounter[ICD10: W54.0XXA] Evelyn Cohen MD, [facility] CPT-4: 15563 10/29/2015 ([id number]) Miscellaneous no charge Diagnosis: Essential (primary) hypertension[ICD10: I10] Diagnosis: Bitten by dog, initial encounter[ICD10: W54.0XXA] [facility] CPT-4: 55725 10/23/2015 26626 EST. PATIENT, LEVEL III Diagnosis: Cellulitis of face[ICD10: L03.211] Diagnosis: Bitten by dog, initial encounter[ICD10: W54.0XXA] [facility] CPT-4: 51411 10/21/2015 ([id number]) Miscellaneous no charge Diagnosis: Essential (primary) hypertension[ICD10: I10] [facility] CPT-4: 83838 07/15/2015 ([id number]) 17918 EST. PATIENT, LEVEL IV Diagnosis: Essential (primary) hypertension[ICD10: I10] Diagnosis: Mixed hyperlipidemia[ICD10: E78.2] Diagnosis: Dry mouth, unspecified[ICD10: R68.2] Berenice Cohen MD, [facility] CPT-4: 11923 06/15/2015 ([id number]) Miscellaneous no charge Diagnosis: Essential (primary) hypertension[ICD10: I10] Doris Cohen MD, [facility] CPT-4: 67446 06/05/2015 ([id number]) 66268 EST. PATIENT, LEVEL IV Diagnosis: Mammographic microcalcification found on diagnostic imaging of breast [ICD10: R92.0] Diagnosis: Edema, unspecified[ICD10: R60.9] Diagnosis: Essential (primary) hypertension[ICD10: I10] Berenice Cohen MD, [facility] CPT-4: 03158 05/19/2015 81400 EST. PATIENT, LEVEL IV Diagnosis: Other acute sinusitis[ICD10: J01.80] Diagnosis: Acute nasopharyngitis [common cold][ICD10: J00] Diagnosis: Other allergic rhinitis[ICD10: J30.89] Diagnosis: Localized edema[ICD10: R60.0] Diagnosis: Mixed hyperlipidemia[ICD10: E78.2] Evelyn Cohen MD, [facility] CPT-4: 60430 04/24/2015 ([id number]) 47849 EST. PATIENT, LEVEL IV Diagnosis: Essential (primary) hypertension[ICD10: I10] Diagnosis: Abscess of liver[ICD10: K75.0] Diagnosis: Anemia, unspecified[ICD10: D64.9] Berenice Cohen MD, [facility] CPT-4: 65842 03/12/2015 21165 EST. PATIENT, LEVEL IV Diagnosis: Essential (primary) hypertension[ICD10: I10] Diagnosis: Candidal stomatitis[ICD10: B37.0] Diagnosis: Pain in unspecified knee[ICD10: M25.569] Diagnosis: Edema, unspecified[ICD10: R60.9] Evelyn Cohen MD, [facility] CPT- 4: 19600 01/12/2015 ([id number]) 29246 EST. PATIENT, LEVEL III Diagnosis: Pain in right foot[ICD10: M79.671] [facility] CPT-4: 60642 12/11/2014 ([id number]) 73358 EST. PATIENT, LEVEL IV Diagnosis: Abscess of liver[ICD10: K75.0] Diagnosis: Hypo-osmolality and hyponatremia[ICD10: E87.1] Diagnosis: Essential (primary) hypertension[ICD10: I10] Diagnosis: VACCIN FOR INFLUENZA[ICD10: Z23] [facility] CPT-4: 20739 12/01/2014 ([id number]) OFFICE VISIT, NEW - LEVEL 4 Diagnosis: ESSENTIAL HYPERTENSION[ICD9: 401.9] Diagnosis: Chronic maxillary sinusitis[ICD9: 473.0] [facility] CPT-4: 47104 08/14/2014 Plan of Care Planned Activity Notes [...] that Marta have her surgery at [facility] so she can see her as well as any specialists if needed. RX for walker provided to help with stability and prevent falling. 05/22/2018 Appointment: Doris Sheffield WPtel: [address] [place], [place] [phone] (30 min) [facility] 05/22/2018 Patient Education: Patient Medication Summary Completed 05/22/2018 Care Plan: Referral Order SNOMED-CT : [id number] Pending 05/22/2018 Visit Plan: Hypertension - well [...] to medications. 04/11/2018 Appointment: Berenice Cohen WPtel: [facility] (15 min) Moderate 04/11/2018 Patient Education: Patient Medication Summary Completed 04/11/2018 Patient Education: Hypertension Completed 04/11/2018 Patient Education: Cholesterol Management Completed 04/11/2018 Patient Education: Patient Medication Summary Completed 03/30/2018 Care Plan: Comp Metabolic Pending 03/30/2018 Care Plan: Cbc With Differential Pending 03/30/2018 Care Plan: Tsh Pending 03/30/2018 Care Plan: Lipid Pending 03/30/2018 Appointment: Berenice Cohen WPtel: [facility] (15 min) Moderate 03/28/2018 Appointment: Berenice Cohen WPtel: [facility] (15 min) Moderate 03/19/2018 Visit Plan: [...] spray. 02/06/2018 [facility]ment[phone] (15 min) Moderate 02/06/2018 Patient Education: Patient Medication Summary Completed 02/06/2018 Patient Education: Patient Medication Summary Completed 12/29/2017 Care Plan: %Hba1C [facility] : 59140-1 Pending 12/11/2017 Visit Plan: Sinusitis - Pt [...] spray. 12/08/2017 Appointment: [phone] (15 min) Moderate 12/08/2017 Patient Education: Patient [...] today 11/13/2017 Appointment: Berenice Cohen WPtel: [phone] [facility]66[facility] (15 min) Moderate 11/13/2017 Patient Education: Patient Medication Summary Completed 11/13/2017 Patient Education: Cholesterol Management Completed 11/13/2017 Visit Plan: Tinea-rx sent to patient's pharmacy and instructed on use-keep groin clean/dry -call if symptoms do not resolve or if any worse HTN-elevated today-monitor and home and call if continues to be elevated 08/29/2017 Appointment: Doris Sheffield WPtel: [phone] [phone] (15 min) Moderate 08/29/2017 Patient Education: [...] worse 07/28/2017 Appointment: Doris Sheffield WPtel: [phone] [phone] (30 min) Complex 07/28/2017 Patient Education: [...] improve. 06/20/2017 Appointment: [phone] (15 min) Moderate 06/20/2017 Patient Education: Patient [...] improving. 05/26/2017 Appointment: [facility] West [facility]el[phone] (15 min) Moderate 05/26/2017 Patient Education: Patient [...] concerns. 04/24/2017 Appointment: [phone] (30 min) Complex 04/24/2017 Patient Education: Patient [...] care surrogate. 02/08/2017 Appointment: [facility]el[phone] [facility] [facility] - Annual Wellness Visit 02/08/2017 Patient Education: [...] today 12/22/2016 Appointment: Berenice Cohen WPtel: [phone] [facility] (15 min) Moderate 12/22/2016 Patient Education: [...] allergy spray. 12/16/2016 Appointment: Evelyn West WPtel: [facility] (30 min) Complex 12/16/2016 Patient Education: Patient Medication Summary Completed 12/16/2016 Appointment: Berenice Cohen WPtel: [facility] (15 min) Moderate 11/15/2016 Visit [...] on carbohydrates. 08/15/2016 Appointment: Berenice Cohen WPtel: [facility] (15 min) Moderate 08/15/2016 Patient Education: Patient Medication Summary Completed 08/15/2016 Appointment: Doris Sheffield WPtel: [phone] (15 min) Moderate 08/05/2016 Visit Plan: [...] show improvement. 08/02/2016 Appointment: Evelyn West WPtel: [facility] [address] (30 min) Complex 08/02/2016 Patient Education: [...] flushed 07/21/2016 Appointment: Doris Sheffield WPtel: [phone] [phone] (15 min) Moderate 07/21/2016 Patient Education: [...] 10mg nightly. 05/16/2016 Appointment: Berenice Cohen WPtel: [address] [place], [place] [address] (15 min) Moderate 05/16/2016 Patient Education: Patient [...] or concerns. 04/06/2016 Appointment: Evelyn West WPtel: [facility] (10 min) Simple 04/06/2016 Patient Education: [...] twice daily. 03/30/2016 Appointment: Berenice Cohen WPtel: [facility] (15 min) Moderate 03/30/2016 Patient Education: Patient Medication Summary Completed 03/30/2016 Appointment: Berenice Cohen WPtel: [facility] (15 min) Moderate 03/24/2016 Visit [...] care surrogate. 02/01/2016 Appointment: Evelyn West WPtel: [facility] [address] - Annual Wellness Visit 02/01/2016 Patient Education: Patient Medication Summary Completed 02/01/2016 Visit Plan: Apthous ulcer - rx for acyclovir 800mg tid x7 days Sample of Voltaren gel to use on knees tid prn 01/25/2016 Appointment: Berenice Cohen WPtel: [facility] [address] (15 min) Moderate 01/25/2016 Patient Education: [...] at home. 12/24/2015 Appointment: Berenice Cohen WPtel: [facility] [address] (15 min) Moderate 12/24/2015 Patient Education: [...] show improvement. 12/18/2015 Appointment: Doris Sheffield WPtel: [phone] (15 min) Moderate 12/18/2015 Patient Education: [...] - 11/26/2015 Appointment: Berenice Cohen WPtel: [phone] [facility] (15 min) Moderate 11/26/2015 Patient Education: [...] pain. 10/21/2015 Appointment: [phone] (15 min) Moderate 10/21/2015 Patient Education: Patient [...] mouth spray 06/15/2015 Appointment: [phone] (15 min) Moderate 06/15/2015 Patient Education: Patient Medication Summary Completed 06/15/2015 Patient Education: Patient Medication Summary Completed 06/12/2015 Appointment: Berenice Cohen WPtel: [address] [facility] [place] (15 min) Moderate 06/11/2015 Appointment: Nurse [...] the day 03/12/2015 Appointment: Berenice Cohen WPtel: [facility] (15 min) Moderate 03/12/2015 Patient Education: Patient [...] appointment with then soon. Pt to try [place] rub on the knees to help reduce [...] is sore 12/11/2014 Appointment: Berenice Cohen WPtel: [address] [place], [place] [phone] (15 min) Moderate 12/11/2014 Patient Education: Patient [...] not improving. 12/01/2014 Appointment: Berenice Cohen WPtel: [address] [place], [place] [phone] (15 min) Moderate 12/01/2014 Patient Education: Patient Medication Summary Completed 12/01/2014 Patient Education: Hypertension Completed 12/01/2014 Appointment: Berenice Cohen WPtel: [address] [place], [place] [phone] (15 min) Moderate 09/15/2014 Visit Plan: [...] do not improve. 08/14/2014 Appointment: VickiBerenice WPtel: [facility] [place] ([place] New Patient 08/14/2014 Patient Education: [...] foot where it is sore [employer] project scientist will contact you for a colon screen test - it is a colon cancer screening that you will do at home and send in to the project scientist. . No fracture of foot - recommended [...] that Marta have her surgery at [facility] so she can see her as well [...] TWO hours after a meal - try [place] on your knee. Decrease Salt in diet. [...] appointment with then soon. Pt to try [place] rub on the knees to help reduce [...]
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
--- OUTSIDE RECORDS SUMMARY | 2018-06-30 14:24 | XMS REPORT | CCD ---
Author Author Berenice Cohen Organization Berenice Cohen MD, [facility] Address [address] [place] [address] Phone Care Team Providers Care Axle Polisher Name Role Phone PP Unavailable CCM Unavailable Summary Purpose Interface Exchange Insurance Providers Payer name Policy type / Coverage type Covered republican ID Effective Begin Date Effective End Date [employer] Commercial Insurance [id number] Unknown Unknown Family history Son Diagnosis Age [...] Unknown Retired 08/14/[address]: 965932113 Never smoker 08/14/[address]: 891029820 Never drinks alcohol 08/14/2014 Allergies, Adverse Reactions, Alerts Substance Reaction Codes Entered Date Inactivated Date Status AUGMENTIN hives, RxNorm: 937366 08/14/2014 No Inactive Date Active MWEAREI-NID-WQZ REDUCTASE INHIBITORS myalgias, Unknown 2015 No Inactive [...] Start Date Stop Date Status Fill Instructions Zithromax Z-Dylan 250 mg tablet RxNorm: 860490 1 Tablet(s) PO UD 05/02/2018 No Stop Date Active glipizide 5 mg tablet RxNorm: 625834 1 Tablet(s) PO BID 201808/15/2018 Active glipizide 5 mg tablet RxNorm: 732968 1 Tablet(s) PO BID 201804/17/2018 Inactive Xanax 0.25 mg tablet RxNorm: 053301 1 Tablet(s) PO TID as needed anxiety 04/11/2018 06/09/2018 Active Zithromax Z-Dylan 250 mg tablet RxNorm: 601142 1 Tablet(s) PO UD 02/06/2018 04/17/2018 Inactive Zyrtec 10 mg tablet RxNorm: 0253175 1 Tablet(s) PO daily 12/0801/06/2018 Inactive Zithromax Z-Dylan 250 mg tablet RxNorm: 928419 1 Tablet(s) PO UD 12/08/2017 02/05/2018 Inactive Lipitor 10 mg tablet RxNorm: 174805 1 Tablet(s) PO QHS 201706/21/2018 Active Lipitor 10 mg tablet RxNorm: 906190 TAKE 1 TABLET BY MOUTH EVERY DAY AT BEDTIME 11/24/2017 No Stop Date Active lisinopril 10 mg tablet RxNorm: 283664 1 Tablet(s) PO daily 08/17/2018 Active prednisone 20 mg tablet RxNorm: 895017 2 Tablet(s) PO daily 11/17/2017 Inactive Keflex 500 mg capsule RxNorm: 419052 1 Capsule(s) PO TID and take a probiotic BID x711/07/2017 11/13/2017 Inactive take with probiotic BID amlodipine 5 mg tablet RxNorm: 071624 1 Tablet(s) PO daily 10/06/2018 Active cefdinir 300 mg capsule RxNorm: 860063 1 Capsule(s) PO BID 09/23/2017 Inactive cefdinir 300 mg capsule RxNorm: 622308 1 Capsule(s) PO BID started by Dr. Davila 09/14/2017 09/13/2017 Inactive betamethasone dipropionate 0.05 % topical cream RxNorm: 965309 1 Application TOP BID 08/29/2017 10/09/2017 Inactive mix with clotrimazole and apply to affected area clotrimazole 1 % topical cream RxNorm: 923233 1 Application TOP BID 08/29/2017 10/09/2017 Inactive mix with betamethasone and apply to affected area nystatin 100,000 unit/mL oral suspension RxNorm: 611546 5 Milliliter(s) PO QID 08/29/2017 09/17/2017 Inactive lisinopril 10 mg tablet RxNorm: 151607 1 Tablet(s) PO daily 11/14/2017 Inactive Kenalog 40 mg/mL suspension for injection RxNorm: 6722655 1 Milliliter(s) Inj 07/28/2017 07/28/2017 Inactive nystatin 100,000 unit/mL oral suspension RxNorm: 187973 5 Milliliter(s) PO QID 07/28/2017 08/06/2017 Inactive Keflex 500 mg capsule RxNorm: 827503 1 Capsule(s) PO TID 201708/03/2017 Inactive Flonase Allergy Relief 50 mcg/actuation nasal spray, suspension RxNorm: 0550056 USE ONE SPRAY(S) IN EACH NOSTRIL TWICE DAILY 07/25/2017 No Stop Date Active meclizine 25 mg tablet RxNorm: 172306 TAKE ONE TABLET BY MOUTH THREE TIMES DAILY NEEDED 07/25/2017 No Stop Date Active Voltaren 1 % topical gel RxNorm: 558794 1 Application TOP QID as needed 06/20/2017 No Stop Date Active Zithromax Z-Dylan 250 mg tablet RxNorm: 953396 1 Tablet(s) PO UD 06/20/2017 07/27/2017 Inactive z pack as directed Keflex 500 mg capsule RxNorm: 136734 1 Capsule(s) PO TID 201706/01/2017 Inactive Zithromax Z-Dylan 250 mg tablet RxNorm: 354918 1 Tablet(s) PO UD 04/27/2017 06/19/2017 Inactive z pack as directed lisinopril 10 mg tablet RxNorm: 774338 1 Tablet(s) PO daily 07/22/2017 Inactive Lipitor 10 mg tablet RxNorm: 226265 1 Tablet(s) PO QHS 201711/06/2017 Inactive Zithromax Z-Dylan 250 mg tablet RxNorm: 273118 1 Tablet(s) PO UD 02/15/2017 04/26/2017 Inactive z pack as directed meclizine 25 mg tablet RxNorm: 981619 TAKE ONE TABLET BY MOUTH THREE TIMES DAILY NEEDED 01/23/2017 07/24/2017 Inactive Zithromax Z-Dylan 250 mg tablet RxNorm: 471642 1 Tablet(s) PO UD 01/05/2017 02/14/2017 Inactive z pack as directed losartan 50 mg tablet RxNorm: 661328 1 Tablet(s) PO daily 201604/10/2017 Inactive amlodipine 5 mg tablet RxNorm: 889866 1 Tablet(s) PO daily 10/11/2017 Inactive Zithromax Z-Dylan 250 mg tablet RxNorm: 670367 1 Tablet(s) PO UD 12/16/2016 01/04/2017 Inactive z pack as directed Zyrtec 10 mg tablet RxNorm: 2889915 1 Tablet(s) PO daily 12/1601/14/2017 Inactive Lipitor 10 mg tablet RxNorm: 206081 1 Tablet(s) PO QHS 201602/22/2017 Inactive Zithromax Z-Dylan 250 mg tablet RxNorm: 785321 1 Tablet(s) PO UD 09/27/2016 12/15/2016 Inactive z pack as directed Lipitor 10 mg tablet RxNorm: 336006 1 Tablet(s) PO QHS 201610/25/2016 Inactive guaifenesin 400 mg tablet RxNorm: 868175 1 Tablet(s) PO BID as needed 08/04/2016 No Stop Date Active cefdinir 300 mg capsule RxNorm: 994026 1 Capsule(s) PO BID started by Dr. Davila 08/04/2016 08/13/2016 Inactive amlodipine 10 mg tablet RxNorm: 104986 1 Tablet(s) PO daily 07/201612/21/2016 Inactive Keflex 500 mg capsule RxNorm: 904517 1 Capsule(s) PO TID 201607/27/2016 Inactive Zyrtec 10 mg tablet RxNorm: 3300468 1 Tablet(s) PO daily 07/0107/30/2016 Inactive Xanax 0.25 mg tablet RxNorm: 006883 1 Tablet(s) PO TID as needed anxiety 07/01/2016 08/27/2016 Inactive amlodipine 5 mg tablet RxNorm: 960198 1 Tablet(s) PO daily 06/201607/30/2016 Inactive Keflex 500 mg capsule RxNorm: 766975 1 Capsule(s) PO TID 201607/03/2016 Inactive Keflex 500 mg capsule RxNorm: 371936 1 Capsule(s) PO TID 201606/23/2016 Inactive Keflex 500 mg capsule RxNorm: 796627 1 Capsule(s) PO TID 201606/30/2016 Inactive Flonase Allergy Relief 50 mcg/actuation nasal spray, suspension RxNorm: 5233229 USE ONE SPRAY(S) IN EACH NOSTRIL TWICE DAILY 06/20/2016 05/15/2017 Inactive amlodipine 10 mg tablet RxNorm: 473974 1 Tablet(s) PO daily 04/201606/28/2016 Inactive Lipitor 10 mg tablet RxNorm: 125030 1 Tablet(s) PO QHS 201608/14/2016 Inactive Flonase Allergy Relief 50 mcg/actuation nasal spray, suspension RxNorm: 6910940 USE ONE SPRAY(S) IN EACH NOSTRIL TWICE DAILY 04/18/2016 05/17/2016 Inactive cephalexin 500 mg capsule RxNorm: 053319 1 Capsule(s) PO TID 04/05/2016 Inactive take with probiotics BID amlodipine 10 mg tablet RxNorm: 110268 1 Tablet(s) PO daily 02/201605/29/2016 Inactive Bactroban 2 % topical cream RxNorm: 469584 1 Application TOP BID 03/30/2016 04/08/2016 Inactive Zithromax Z-Dylan 250 mg tablet RxNorm: 428255 1 Tablet(s) PO UD 03/10/2016 05/15/2016 Inactive z pack as directed Keflex 500 mg capsule RxNorm: 062305 1 Capsule(s) PO TID 201502/25/2016 Inactive take with probiotics BID acyclovir 800 mg tablet RxNorm: 510565 1 Tablet(s) PO TID 01/2402/21/2016 Inactive Zithromax Z-Dylan 250 mg tablet RxNorm: 691471 1 Tablet(s) PO UD 01/19/2016 01/24/2016 Inactive z pack Flonase Allergy Relief 50 mcg/actuation nasal spray, suspension RxNorm: 0183122 USE ONE SPRAY(S) IN EACH NOSTRIL TWICE DAILY 12/28/2015 02/25/2016 Inactive Kenalog 40 mg/mL suspension for injection RxNorm: 0776132 Milliliter(s) Inj 12/18/2015 12/18/2015 Inactive Keflex 500 mg capsule RxNorm: 669176 1 Capsule(s) PO TID 201512/24/2015 Inactive Zithromax Z-Dylan 250 mg tablet RxNorm: 185131 1 Tablet(s) PO UD 12/09/2015 12/23/2015 Inactive z pack meclizine 25 mg tablet RxNorm: 803409 1 Tablet(s) PO TID as needed 12/09/2015 12/08/2015 Inactive meclizine 25 mg tablet RxNorm: 814233 1 Tablet(s) PO TID as needed 12/09/2015 02/26/2016 Inactive Keflex 500 mg capsule RxNorm: 015592 1 Capsule(s) PO TID 201511/22/2015 Inactive Cipro 500 mg tablet RxNorm: 436384 1 Tablet(s) PO BID 201511/13/2015 Inactive Keflex 500 mg capsule RxNorm: 589689 1 Capsule(s) PO TID 201510/30/2015 Inactive Xanax 0.25 mg tablet RxNorm: 173192 1 Tablet(s) PO TID as needed anxiety 09/18/2015 11/13/2015 Inactive Keflex 500 mg capsule RxNorm: 672178 1 Capsule(s) PO TID 201508/19/2015 Inactive losartan 50 mg tablet RxNorm: 716862 1 Tablet(s) PO daily 201507/07/2015 Inactive Pepcid 20 mg tablet RxNorm: 564443 1 Tablet(s) PO BID 201507/07/2015 Inactive Pepcid 20 mg tablet RxNorm: 199856 1 Tablet(s) PO BID 201501/31/2016 Inactive losartan 50 mg tablet RxNorm: 969923 1 Tablet(s) PO daily 201501/31/2016 Inactive prednisone 20 mg tablet RxNorm: 755441 2 Tablet(s) PO daily 06/22/2015 Inactive prednisone 20 mg tablet RxNorm: 309417 2 Tablet(s) PO daily 12/23/2015 Inactive Diflucan 100 mg tablet RxNorm: 977198 TAKE ONE TABLET BY MOUTH ONCE DAILY 06/12/2015 12/23/2015 Inactive Zithromax Z-Dylan 250 mg tablet RxNorm: 069823 1 Tablet(s) PO UD 06/05/2015 07/06/2015 Inactive z pack amlodipine 5 mg tablet RxNorm: 631808 1 Tablet(s) PO daily 03/29/2016 Inactive Zetia 10 mg tablet RxNorm: 812552 1 Tablet(s) PO daily 201506/14/2015 Inactive valsartan 160 mg tablet RxNorm: 429405 1 Tablet(s) PO daily 07/07/2015 Inactive Lipitor 10 mg tablet RxNorm: 854561 1 Tablet(s) PO QHS 201505/18/2015 Inactive Lipitor 10 mg tablet RxNorm: 209176 1 Tablet(s) PO QHS 201504/27/2015 Inactive Zithromax 250 mg tablet RxNorm: 241683 Tablet(s) PO UD 201504/28/2015 Inactive Keflex 500 mg capsule RxNorm: 828717 1 Capsule(s) PO TID 201503/22/2015 Inactive Keflex 500 mg capsule RxNorm: 069253 1 Capsule(s) PO TID 201504/01/2015 Inactive Xanax 0.25 mg tablet RxNorm: 270921 1 Tablet(s) PO TID as needed anxiety 03/12/2015 07/04/2016 Inactive carvedilol 25 mg tablet RxNorm: 783875 1 Tablet(s) PO BID 03/1201/31/2016 Inactive amlodipine 5 mg tablet RxNorm: 067276 1 Tablet(s) PO BID 201505/18/2015 Inactive Diflucan 100 mg tablet RxNorm: 386950 1 Tablet(s) PO daily 03/21/2015 Inactive Diflucan 100 mg tablet RxNorm: 870105 1 Tablet(s) PO daily 02/14/2015 Inactive Diflucan 100 mg tablet RxNorm: 471881 1 Tablet(s) PO daily 06/201401/05/2015 Inactive Diflucan 100 mg tablet RxNorm: 542779 1 Tablet(s) PO daily 06/201412/31/2014 Inactive nystatin 100,000 unit/mL oral suspension RxNorm: 180219 5 Milliliter(s) PO QID 12/24/2014 06/14/2015 Inactive nystatin 100,000 unit/mL oral suspension RxNorm: 748694 5 Milliliter(s) PO QID 12/24/2014 12/23/2014 Inactive Zithromax 250 mg tablet RxNorm: 263097 1 Tablet(s) PO daily 12/19/2014 Inactive Zithromax 250 mg tablet RxNorm: 029937 1 Tablet(s) PO daily 12/14/2014 Inactive Flonase Allergy Relief 50 mcg/actuation nasal spray, suspension RxNorm: 1 [place] NASAL BID 12/11/2014 12/10/2014 Inactive Flonase Allergy Relief 50 mcg/actuation nasal spray, suspension RxNorm: 8710980 1 [place] NASAL BID 12/11/20142015 Inactive amlodipine 5 mg tablet RxNorm: 154800 2 Tablet(s) PO daily 11/13/2014 Inactive amlodipine 5 mg tablet RxNorm: 396548 2 Tablet(s) PO daily 03/11/2015 Inactive Lotrisone 1 %-0.05 % topical cream RxNorm: 372508 1 TOP BID until healed 10/17/2014 10/30/2014 Inactive Lotrisone 1 %-0.05 % topical cream RxNorm: 745070 1 TOP BID until healed 10/16/2014 10/16/2014 Inactive Lotrisone 1 %-0.05 % topical cream RxNorm: 822241 1 TOP BID until healed 10/06/2014 10/15/2014 Inactive Keflex 500 mg capsule RxNorm: 646534 1 Capsule(s) PO TID 201408/11/2014 Inactive Keflex 500 mg capsule RxNorm: 389003 1 Capsule(s) PO TID 201408/18/2014 Inactive clotrimazole 1 % topical solution RxNorm: 883775 1 Drop(s) TOP BID No Start Date Active Vitamin D3 5,000 unit tablet RxNorm: 043482 1 Tablet(s) PO daily No Start Date Active guaifenesin 400 mg tablet RxNorm: 910269 1 Tablet(s) PO BID as needed No Start Date 08/03/2016 Inactive Lotrisone 1 %-0.05 % topical cream RxNorm: 625727 1 TOP BID until healed No Start Date 10/05/2014 Inactive lisinopril 40 mg tablet RxNorm: 942706 1 Tablet(s) PO daily No Start Date 05/18/2015 Inactive amlodipine 5 mg tablet RxNorm: 558949 1 Tablet(s) PO daily No Start Date 11/13/2014 Inactive indapamide 1.25 mg tablet RxNorm: 238414 1 Tablet(s) PO daily No Start Date 01/31/2016 Inactive aspirin 81 mg tablet RxNorm: 981552 1 Tablet(s) PO daily No Start Date 02/07/2017 Inactive Medication Administered Medication Codes Instructions Start Date Status Kenalog 40 mg/mL suspension for injection RxNorm: 7167589 1Milliliter 07/28/2017 No longer Active Kenalog 40 mg/mL suspension for injection RxNorm: 5619461 Milliliter 12/18/2015 No longer Active Immunizations Vaccine [...] 30.8 pg 04/11/2018 Cbc With Differential Ord2 [place]% 13.0 % 04/11/2018 Cbc With Differential Ord2 [...] 3.09 K/ul 04/11/2018 Cbc With Differential Ord2 [place] ABS# 1.2 K/ul 04/11/2018 Cbc With Differential Ord2 Eos ABS# 0.2 K/ul 04/11/2018 Cbc With Differential Ord2 Baso ABS# 0.1 K/ul 04/11/2018 Tsh Ord6 TSH (3rd IS) 2.85 uIU/mL 04/11/2018 %Hba1C Ijk688 % HbA1c 36635-4 7.1 % 04/11/2018 %Hba1C Nov718 Gluc Ave 157 mg/dL 04/11/2018 Lipid Ord30 CHOL 150 mg/dL 04/11/2018 Lipid Ord30 HDL 38.0 mg/dl 04/11/2018 Lipid Ord30 TRIG 203 mg/dL 04/11/2018 Lipid Ord30 LDL 71 mg/dL 04/11/2018 Lipid Ord30 C/HDL 3.9 Ratio 04/11/2018 Vitamin D 25 Oh Vam4680 VITAMIN D, 25 HYDROXY 48.86 ng/mL Comp Metabolic Qhi564 NA 138 mEq/L 04/11/2018 Comp Metabolic Klw282 K 4.4 mEq/L 04/11/2018 Comp Metabolic Yrn888 CL 101 mEq/L 04/11/2018 Comp Metabolic Krd208 CO2 29.0 mEq/L 04/11/2018 Comp Metabolic Mit525 ANION GAP 12 04/11/2018 Comp Metabolic Jhf452 GLUCOSE 120 mg/dL 04/11/2018 Comp Metabolic Naf266 Creat 1.2 mg/dL 04/11/2018 Comp Metabolic Oug235 eGFR 47 ml/min/1.73m2 04/11/2018 Comp Metabolic Kbq646 BUN 23 mg/dL 04/11/2018 Comp Metabolic Olp483 B/C Ratio 19.7 Ratio 04/11/2018 Comp Metabolic Ihs435 CALCIUM 10.3 mg/dL 04/11/2018 Comp Metabolic Nbw372 ALK PHOS 40 U/L 04/11/2018 Comp Metabolic Keh223 AST(SGOT) 15 U/L 04/11/2018 Comp Metabolic Kyq321 ALT(SGPT) 9 U/L 04/11/2018 Comp Metabolic For898 BILI T 1.0 mg/dL 04/11/2018 Comp Metabolic Pwk207 ALBUMIN 4.3 g/dL 04/11/2018 Comp Metabolic Vue370 TPRO 6.8 g/dL 04/11/2018 Comp Metabolic Etk282 GLOB 2.5 g/dL 04/11/2018 Comp Metabolic Sjm380 A/G Ratio 1.7 Ratio 04/11/2018 Comp Metabolic Wvn481 Osmo 281 mOsmo 04/11/2018 %Hba1C Jcz341 % HbA1c 83006-6 6.5 % 12/01/2016 %Hba1C Zdn307 Gluc Ave 140 mg/dL 12/01/2016 Lipid Ord30 [...] 31.3 pg 04/12/2016 Cbc With Differential Ord2 [place]% 13.3 % 04/12/2016 Cbc With Differential Ord2 [...] 2.85 K/ul 04/12/2016 Cbc With Differential Ord2 [place] ABS# 1.1 K/ul 04/12/2016 Cbc With Differential Ord2 Eos ABS# 0.1 K/ul 04/12/2016 Cbc With Differential Ord2 Baso ABS# 0.0 K/ul 04/12/2016 Comp Metabolic Zva427 NA 129 mEq/L 04/12/2016 Comp Metabolic Xnv739 K 4.0 mEq/L 04/12/2016 Comp Metabolic Ygr441 CL 93 mEq/L 04/12/2016 Comp Metabolic Mxm654 CO2 29.0 mEq/L 04/12/2016 Comp Metabolic Syk913 ANION GAP 11 04/12/2016 Comp Metabolic Gng354 GLUCOSE 100 mg/dL 04/12/2016 Comp Metabolic Gdb981 Creat 1.0 mg/dL 04/12/2016 Comp Metabolic Kdz264 eGFR 55 ml/min/1.73m2 04/12/2016 Comp Metabolic Rnq232 BUN 19 mg/dL 04/12/2016 Comp Metabolic Upg897 B/C Ratio 18.8 Ratio 04/12/2016 Comp Metabolic Uyp187 CALCIUM 9.3 mg/dL 04/12/2016 Comp Metabolic Pgd027 ALK PHOS 38 U/L 04/12/2016 Comp Metabolic Kyv473 AST(SGOT) 17 U/L 04/12/2016 Comp Metabolic Fqa455 ALT(SGPT) 11 U/L 04/12/2016 Comp Metabolic Jdc144 BILI T 1.0 mg/dL 04/12/2016 Comp Metabolic Vyv658 ALBUMIN 4.2 g/dL 04/12/2016 Comp Metabolic Nec293 TPRO 6.6 g/dL 04/12/2016 Comp Metabolic Gwn014 GLOB 2.4 g/dL 04/12/2016 Comp Metabolic Hym711 A/G Ratio 1.8 Ratio 04/12/2016 Comp Metabolic Iec462 Osmo 261 mOsmo 04/12/2016 Lipid Ord30 CHOL 265 mg/dL 04/12/2016 Lipid Ord30 HDL 42.0 mg/dl 04/12/2016 Lipid Ord30 TRIG 246 mg/dL 04/12/2016 Lipid Ord30 LDL 174 mg/dL 04/12/2016 Lipid Ord30 C/HDL 6.3 Ratio 04/12/2016 Tsh Ord6 hTSH II 2.49 uIU/mL 04/12/2016 Tsh Ord6 hTSH II 1.83 uIU/mL 06/12/2015 Comp Metabolic Ozw978 NA 137 mEq/L 06/12/2015 Comp Metabolic Pen755 K 4.4 mEq/L 06/12/2015 Comp Metabolic Crk060 CL 103 mEq/L 06/12/2015 Comp Metabolic Sib158 CO2 27.0 mEq/L 06/12/2015 Comp Metabolic Xtp650 ANION GAP 11 06/12/2015 Comp Metabolic Buj326 GLUCOSE 87 mg/dL 06/12/2015 Comp Metabolic Rpc535 Creat 1.3 mg/dL 06/12/2015 Comp Metabolic Any370 eGFR 43 ml/min/1.73m2 06/12/2015 Comp Metabolic Pfg776 BUN 32 mg/dL 06/12/2015 Comp Metabolic Lnw621 B/C Ratio 25.4 Ratio 06/12/2015 Comp Metabolic Rzu679 CALCIUM 9.5 mg/dL 06/12/2015 Comp Metabolic Ztj269 ALK PHOS 36 U/L 06/12/2015 Comp Metabolic Sli305 AST(SGOT) 16 U/L 06/12/2015 Comp Metabolic Bkd114 ALT(SGPT) 17 U/L 06/12/2015 Comp Metabolic Frh634 BILI T 1.0 mg/dL 06/12/2015 Comp Metabolic Gqi394 ALBUMIN 4.1 g/dL 06/12/2015 Comp Metabolic Rro556 TPRO 6.5 g/dL 06/12/2015 Comp Metabolic Pdq838 GLOB 2.5 g/dL 06/12/2015 Comp Metabolic Nff115 A/G Ratio 1.7 Ratio 06/12/2015 Comp Metabolic Yxy536 Osmo 280 mOsmo 06/12/2015 Lipid Ord30 CHOL [...] 30.6 pg 06/12/2015 Cbc With Differential Ord2 [place]% 11.0 % 06/12/2015 Cbc With Differential Ord2 [...] 1.96 K/ul 06/12/2015 Cbc With Differential Ord2 [place] ABS# 0.9 K/ul 06/12/2015 Cbc With Differential [...] 30.3 pg 03/12/2015 Cbc With Differential Ord2 [place]% 10.7 % 03/12/2015 Cbc With Differential Ord2 [...] 2.00 K/ul 03/12/2015 Cbc With Differential Ord2 [place] ABS# 1.0 K/ul 03/12/2015 Cbc With Differential Ord2 Eos ABS# 0.1 K/ul 03/12/2015 Cbc With Differential Ord2 Baso ABS# 0.0 K/ul 03/12/2015 Cbc With Differential Ord2 New Analyzer Notice Please note new ref ranges starting 03-11-2015 due to implemntation of new five part differential hematolgy analyzer. 03/12/2015 Comp Metabolic Tzk016 NA 139 mEq/L 03/12/2015 Comp Metabolic Hkz234 K 4.2 mEq/L 03/12/2015 Comp Metabolic Psp895 CL 101 mEq/L 03/12/2015 Comp Metabolic Ylj753 CO2 28.0 mEq/L 03/12/2015 Comp Metabolic Vvj600 ANION GAP 14 03/12/2015 Comp Metabolic Qej853 GLUCOSE 78 mg/dL 03/12/2015 Comp Metabolic Ixn486 Creat 1.1 mg/dL 03/12/2015 Comp Metabolic Uxz888 eGFR 51 ml/min/1.73m2 03/12/2015 Comp Metabolic Rrn943 BUN 17 mg/dL 03/12/2015 Comp Metabolic Gdo650 B/C Ratio 15.6 Ratio 03/12/2015 Comp Metabolic Esp137 CALCIUM 9.4 mg/dL 03/12/2015 Comp Metabolic Usl061 ALK PHOS 46 U/L 03/12/2015 Comp Metabolic Ixp498 AST(SGOT) 16 U/L 03/12/2015 Comp Metabolic Wox753 ALT(SGPT) 12 U/L 03/12/2015 Comp Metabolic Pgg924 BILI T 0.8 mg/dL 03/12/2015 Comp Metabolic Dtm709 ALBUMIN 4.1 g/dL 03/12/2015 Comp Metabolic Nmn655 TPRO 6.6 g/dL 03/12/2015 Comp Metabolic Rfk746 GLOB 2.6 g/dL 03/12/2015 Comp Metabolic Ldp939 A/G Ratio 1.6 Ratio 03/12/2015 Comp Metabolic Jon104 Osmo 278 mOsmo 03/12/2015 Lipid Ord30 CHOL [...] hTSH II 3.15 uIU/mL 12/01/2014 Comp Metabolic Rog639 NA 132 mEq/L 12/01/2014 Comp Metabolic Cbd530 K 4.4 mEq/L 12/01/2014 Comp Metabolic Sae485 CL 99 mEq/L 12/01/2014 Comp Metabolic Fkg196 CO2 27.0 mEq/L 12/01/2014 Comp Metabolic Gpp022 ANION GAP 10 12/01/2014 Comp Metabolic Vuk085 GLUCOSE 86 mg/dL 12/01/2014 Comp Metabolic Jbj025 Creat 1.2 mg/dL 12/01/2014 Comp Metabolic Tmj956 eGFR 46 ml/min/1.73m2 12/01/2014 Comp Metabolic Tkn796 BUN 32 mg/dL 12/01/2014 Comp Metabolic Ymc561 B/C Ratio 27.1 Ratio 12/01/2014 Comp Metabolic Lna120 CALCIUM 9.4 mg/dL 12/01/2014 Comp Metabolic Jic352 ALK PHOS 35 U/L 12/01/2014 Comp Metabolic Vds409 AST(SGOT) 14 U/L 12/01/2014 Comp Metabolic Cvm961 ALT(SGPT) 13 U/L 12/01/2014 Comp Metabolic Jln350 BILI T 0.8 mg/dL 12/01/2014 Comp Metabolic Yxc713 ALBUMIN 4.0 g/dL 12/01/2014 Comp Metabolic Qgr284 TPRO 6.8 g/dL 12/01/2014 Comp Metabolic Nhm126 GLOB 2.8 g/dL 12/01/2014 Comp Metabolic Juk203 A/G Ratio 1.4 Ratio 12/01/2014 Comp Metabolic Dmh751 Osmo 271 mOsmo 12/01/2014 Review of Systems [...] FLU VACC PRSV FREE INC ANTIG CPT-4: 03722 11/13/2017 ADMIN INFLUENZA VIRUS VAC CPT-4: G0008 11/13/2017 TRIAMCINOLONE ACET INJ NOS CPT-4: J3301 07/28/2017 PPPS, SUBSEQ VISIT CPT -4: G0439 02/08/2017 URINALYSIS NONAUTO W/O SCOPE CPT-4: 22758 08/15/2016 PPPS, SUBSEQ VISIT CPT -4: G0439 02/01/2016 TRIAMCINOLONE ACET INJ NOS CPT-4: J3301 12/18/2015 ADMIN INFLUENZA VIRUS VAC CPT-4: G0008 11/26/2015 FLU VACC 4 GISELA 3 YRS PLUS IM Formatting Model/CDA Sections, Assigned to/Malina Mazariegos SNOMED CT: 00007027 CPT-4: 83203Fcjexun 11/26/2015 URINALYSIS NONAUTO W/O SCOPE CPT-4: 11065 11/20/2015 URINALYSIS NONAUTO W/O SCOPE CPT-4: 20075 11/13/2015 IMMUNIZATION ADMIN CPT -4: 59044 12/01/2014 FLU VACC 4 GISELA 3 YRS PLUS IM Formatting Model/CDA Sections, Assigned to/Malina Mazariegos SNOMED CT: 63326064 CPT-4: 70345Cwvnwas 12/01/2014 Vital Signs Date Vital 05/22/2018 Blood Pressure 1: 128/50 Code : 8480-6 BMI: 24.6 Code : 14375-6 Heart Rate 1 : 76 bpm Height: 5'1" SpO2: 98% Weight: 130 lbs 04/11/2018 Blood Pressure 1: 142/56 Code : 8480-6 BMI: 25.1 Code : 01826-4 Heart Rate 1 : 68 bpm Height: 5'1" SpO2: 96% Weight: 133 lbs 02/06/2018 Blood Pressure 1: 142/60 Code : 8480-6 BMI: 25.3 Code : 58271-2 Heart Rate 1 : 68 bpm Height: 5'1" SpO2: 99% Temperature: 37.0 (C) / 98.6 (F) Weight: 134 lbs 12/08/2017 Blood Pressure 1: 140/52 Code : 8480-6 BMI: 25.5 Code : 70399-1 Heart Rate 1 : 77 bpm Height: 5'1" SpO2: 96% Temperature: 36.6 (C) / 97.9 (F) Weight: 135 lbs 11/13/2017 Blood Pressure 1: 134/54 Code : 8480-6 BMI: 24.8 Code : 65814-9 Heart Rate 1 : 73 bpm Height: 5'1" SpO2: 98% Weight: 131 lbs 08/29/2017 Blood Pressure 1: 162/64 Code : 8480-6 BMI: 24.9 Code : 94728-4 Heart Rate 1 : 61 bpm Height: 5'1" SpO2: 96% Weight: 132 lbs 07/28/2017 Blood Pressure 1: 148/62 Code : 8480-6 BMI: 25.1 Code : 49412-6 Heart Rate 1 : 67 bpm Height: 5'1" SpO2: 99% Temperature: 36.4 (C) / 97.5 (F) Weight: 133 lbs 06/20/2017 Blood Pressure 1: 140/52 Code : 8480-6 BMI: 25.3 Code : 48694-8 Heart Rate 1 : 64 bpm Height: 5'1" SpO2: 98% Weight: 134 lbs 05/26/2017 Blood Pressure 1: 140/56 Code : 8480-6 BMI: 25.7 Code : 27886-8 Heart Rate 1 : 74 bpm Height: 5'1" SpO2: 95% Weight: 136 lbs 04/24/2017 Blood Pressure 1: 140/68 Code : 8480-6 BMI: 24.6 Code : 17480-8 Heart Rate 1 : 67 bpm Height: 5'1" SpO2: 97% Weight: 130 lbs 02/08/2017 Blood Pressure 1: 134/76 Code : 8480-6 BMI: 24.9 Code : 05287-6 Heart Rate 1 : 67 bpm Height: 5'1" SpO2: 98% Waist Measure (cm): 93641 cm Weight: 132 lbs 12/22/2016 Blood Pressure 1: 156/80 Code : 8480-6 BMI: 24.2 Code : 63264-7 Heart Rate 1 : 65 bpm Height: 5'1" SpO2: 98% Weight: 128 lbs 12/16/2016 Blood Pressure 1: 138/62 Code : 8480-6 BMI: 23.8 Code : 47485-1 Heart Rate 1 : 63 bpm Height: 5'1" SpO2: 98% Weight: 126 lbs 08/15/2016 Blood Pressure 1: 130/60 Code : 8480-6 BMI: 25.3 Code : 46873-2 Heart Rate 1 : 72 bpm Height: 5'1" SpO2: 95% Weight: 134 lbs 08/02/2016 Blood Pressure 1: 160/62 Code : 8480-6 BMI: 25.3 Code : 25621-2 Heart Rate 1 : 67 bpm Height: 5'1" SpO2: 97% Weight: 134 lbs 07/21/2016 Blood Pressure 1: 148/66 Code : 8480-6 BMI: 25.9 Code : 03600-0 Heart Rate 1 : 71 bpm Height: 5'1" SpO2: 97% Temperature: 36.8 (C) / 98.2 (F) Weight: 137 lbs 07/01/2016 Blood Pressure 1: 142/72 Code : 8480-6 BMI: 26.5 Code : 26658-4 Heart Rate 1 : 68 bpm Height: 5'1" SpO2: 94% Weight: 140 lbs 05/16/2016 Blood Pressure 1: 162/76 Code : 8480-6 Blood Pressure 1: 138/68 Code: 8480-6 BMI: 25.7 Code: 31739-1 Heart Rate 1: 58 bpm Height: 5'1" SpO2: 98% Weight: 136 lbs 04/06/2016 Blood Pressure 1: 162/72 Code : 8480-6 Blood Pressure 1: 138/74 Code: 8480-6 BMI: 25.7 Code: 09297-7 Heart Rate 1: 75 bpm Height: 5'1" SpO2: 97% Weight: 136 lbs 03/30/2016 Blood Pressure 1: 188/80 Code : 8480-6 BMI: 26.3 Code : 44618-1 Heart Rate 1 : 75 bpm Height: 5'1" SpO2: 98% Weight: 139 lbs 02/01/2016 Blood Pressure 1: 140/72 Code : 8480-6 BMI: 25.3 Code : 38293-1 Heart Rate 1 : 65 bpm Height: 5'1" SpO2: 97% Waist Measure (cm): 84 cm Weight: 134 lbs 01/25/2016 Blood Pressure 1: 140/74 Code : 8480-6 BMI: 25.1 Code : 74236-8 Heart Rate 1 : 66 bpm Height: 5'1" SpO2: 98% Weight: 133 lbs 12/24/2015 Blood Pressure 1: 142/66 Code : 8480-6 BMI: 24.9 Code : 40849-3 Heart Rate 1 : 54 bpm Height: 5'1" SpO2: 97% Weight: 132 lbs 12/18/2015 Blood Pressure 1: 152/62 Code : 8480-6 BMI: 25.5 Code : 01145-1 Heart Rate 1 : 66 bpm Height: 5'1" SpO2: 96% Weight: 135 lbs 12/11/2015 Blood Pressure 1: 136/54 Code : 8480-6 Heart Rate 1: 72 bpm SpO2: 98% Weight: 137 lbs 11/26/2015 Blood Pressure 1: 142/70 Code : 8480-6 BMI: 25.3 Code : 72187-2 Heart Rate 1 : 64 bpm Height: 5'1" SpO2: 97% Weight: 134 lbs 11/20/2015 Blood Pressure 1: 154/70 Code : 8480-6 Heart Rate 1: 65 bpm SpO2: 98% 10/23/2015 Blood Pressure 1: 138/62 Code : 8480-6 Heart Rate 1: 55 bpm SpO2: 98% 10/21/2015 Blood Pressure 1: 142/68 Code : 8480-6 BMI: 25.7 Code : 74637-4 Heart Rate 1 : 73 bpm Height: 5'1" SpO2: 98% Weight: 136 lbs 07/15/2015 Blood Pressure 1: 130/60 Code : 8480-6 BMI: 26.6 Code : 91862-3 Heart Rate 1 : 70 bpm Height: 5'1" SpO2: 97% Weight: 141 lbs 06/15/2015 Blood Pressure 1: 118/64 Code : 8480-6 BMI: 24.9 Code : 32806-7 Heart Rate 1 : 66 bpm Height: 5'1" SpO2: 99% Weight: 132 lbs 06/05/2015 Blood Pressure 1: 142/60 Code : 8480-6 Blood Pressure 1: 135/58 Code: 8480-6 Heart Rate 1: 64 bpm SpO2: 99% 05/19/2015 Blood Pressure 1: 146/60 Code : 8480-6 BMI: 27.1 Code : 09599-7 Heart Rate 1 : 66 bpm Height: 5'1" SpO2: 97% Weight: 143 lbs 8 oz 04/24/2015 Blood Pressure 1: 148/58 Code : 8480-6 BMI: 25.9 Code : 25689-2 Heart Rate 1 : 61 bpm Height: 5'1" SpO2: 98% Weight: 137 lbs 03/12/2015 Blood Pressure 1: 140/72 Code : 8480-6 BMI: 25.1 Code : 91630-8 Heart Rate 1 : 68 bpm Height: 5'1" SpO2: 98% Weight: 133 lbs 01/12/2015 Blood Pressure 1: 146/60 Code : 8480-6 BMI: 25.7 Code : 00929-0 Heart Rate 1 : 48 bpm Height: 5'1" SpO2: 97% Weight: 136 lbs 12/11/2014 Blood Pressure 1: 144/56 Code : 8480-6 Blood Pressure 1: 125/65 Code: 8480-6 BMI: 25.1 Code: 97325-8 Heart Rate 1: 56 bpm Height: 5'1" SpO2: 96% Weight: 133 lbs 12/01/2014 Blood Pressure 1: 136/60 Code : 8480-6 Heart Rate 1: 56 bpm SpO2: 96% Weight: 131 lbs 5 oz 08/14/2014 Blood Pressure 1: 132/72 Code : 8480-6 BMI: 25.5 Code : 48071-9 Heart Rate 1 : 73 bpm Height: [...] Encounters Encounter Performer Location Codes Date () 02491 EST. PATIENT, LEVEL III Diagnosis: Essential (primary) hypertension[ICD10: I10] Diagnosis: Unilateral primary osteoarthritis, left knee[ICD10: M17.12] Doris Cohen MD, [facility] CPT-4: 95512 05/22/2018 ([id number]) 69740 EST. PATIENT, LEVEL IV Diagnosis: Essential (primary) hypertension[ICD10: I10] Diagnosis: Other abnormal glucose[ICD10: R73.09] Diagnosis: Mixed hyperlipidemia[ICD10: E78.2] Diagnosis: Vitamin D deficiency, unspecified[ICD10: E55.9] Berenice Cohen MD, [facility] CPT-4: 94584 04/11/2018 71109 EST. PATIENT, LEVEL IV Diagnosis: Other acute sinusitis[ICD10: J01.80] Diagnosis: Other allergic rhinitis[ICD10: J30.89] Evelyn Cohen MD, [facility] CPT-4: 57290 02/06/2018 73246 EST. PATIENT, LEVEL III Diagnosis: Other allergic rhinitis[ICD10: J30.89] Diagnosis: Other acute sinusitis[ICD10: J01.80] Evelyn Cohen MD, [facility] CPT-4: 43807 12/08/2017 ([id number]) 68106 EST. PATIENT, LEVEL IV Diagnosis: Essential (primary) hypertension[ICD10: I10] Diagnosis: Chronic maxillary sinusitis[ICD10: J32.0] Diagnosis: Mixed hyperlipidemia[ICD10: E78.2] Diagnosis: Other abnormal glucose[ICD10: R73.09] Berenice Cohen MD, [facility] CPT-4: 16835 11/13/2017 ([id number]) 75945 EST. PATIENT, LEVEL III Diagnosis: Tinea corporis[ICD10: B35.4] Diagnosis: Essential (primary) hypertension[ICD10: I10] Doris Cohen MD, [facility] CPT-4: 81609 08/29/2017 ([id number]) 31655 EST. PATIENT, LEVEL III Diagnosis: Acute recurrent maxillary sinusitis[ICD10: J01.01] Diagnosis: Other allergic rhinitis[ICD10: J30.89] Doris Cohen MD, [facility] CPT-4: 43790 07/28/2017 57923 EST. PATIENT, LEVEL IV Diagnosis: Other acute sinusitis[ICD10: J01.80] Diagnosis: Other allergic rhinitis[ICD10: J30.89] Diagnosis: Otalgia, bilateral[ICD10: H92.03] Diagnosis: Pain in right knee[ICD10: M25.561] Diagnosis: Pain in left knee[ICD10: M25.562] Evelyn Cohen MD, [facility] CPT -4: 78731 06/20/2017 07610 EST. PATIENT, LEVEL IV Diagnosis: Other acute sinusitis[ICD10: J01.80] Diagnosis: Other allergic rhinitis[ICD10: J30.89] Diagnosis: Gastro-esophageal reflux disease without esophagitis[ICD10: K21.9] Evelyn Cohen MD, [facility] CPT-4: 36440 05/26/2017 69667 EST. PATIENT, LEVEL III Diagnosis: Essential (primary) hypertension[ICD10: I10] Evelyn Cohen MD, [facility] CPT-4: 39340 04/24/2017 ([id number]) 62262 EST. PATIENT, LEVEL IV Diagnosis: Essential (primary) hypertension[ICD10: I10] Diagnosis: Other abnormal glucose[ICD10: R73.09] Diagnosis: Mixed hyperlipidemia[ICD10: E78.2] Berenice Cohen MD, [facility] CPT-4: 38975 12/22/2016 95032 EST. PATIENT, LEVEL IV Diagnosis: Other acute sinusitis[ICD10: J01.80] Diagnosis: Other allergic rhinitis[ICD10: J30.89] Evelyn Cohen MD, [facility] CPT-4: 96652 12/16/2016 ([id number]) 37542 EST. PATIENT, LEVEL IV Diagnosis: Essential (primary) hypertension[ICD10: I10] Diagnosis: Mixed hyperlipidemia[ICD10: E78.2] Diagnosis: Dysuria[ICD10: R30.0] Berenice Cohen MD, [facility] CPT-4: 14038 08/15/2016 65628 EST. PATIENT, LEVEL III Diagnosis: Other acute sinusitis[ICD10: J01.80] Diagnosis: Other allergic rhinitis[ICD10: J30.89] Diagnosis: Otalgia, bilateral[ICD10: H92.03] Evelyn Cohen MD, [facility] CPT -4: 44667 08/02/2016 ([id number]) 53561 EST. PATIENT, LEVEL III Diagnosis: Acute recurrent maxillary sinusitis[ICD10: J01.01] Diagnosis: Otalgia, right ear[ICD10: H92.01] Doris Cohen MD, [facility] CPT-4: 36032 07/21/2016 68937 EST. PATIENT, LEVEL III Diagnosis: Dysuria[ICD10: R30.0] Diagnosis: Other allergic rhinitis[ICD10: J30.89] Evelyn Cohen MD, [facility] CPT-4: 12456 07/01/2016 ([id number]) 38893 EST. PATIENT, LEVEL IV Diagnosis: Essential (primary) hypertension[ICD10: I10] Diagnosis: Mixed hyperlipidemia[ICD10: E78.2] Berenice Cohen MD, [facility] CPT-4: 92011 05/16/2016 95724 EST. PATIENT, LEVEL III Diagnosis: Mixed hyperlipidemia[ICD10: E78.2] Diagnosis: Essential (primary) hypertension[ICD10: I10] Diagnosis: Laceration without foreign body of left hand, subsequent encounter[ ICD10: S61.412D] Evelyn Cohen MD, [facility] CPT-4: 22787 04/06/2016 ([id number]) 93341 EST. PATIENT, LEVEL III Diagnosis: Essential (primary) hypertension[ICD10: I10] Berenice Cohen MD, [facility] CPT-4: 53245 03/30/2016 ([id number]) 57480 EST. 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 PATIENT, LEVEL III Diagnosis: Essential (primary) hypertension[ICD10: I10] Berenice Cohen MD, [facility] CPT-4: 73434 12/24/2015 86682 EST. PATIENT, LEVEL III Diagnosis: Other acute sinusitis[ICD10: J01.80] Diagnosis: Other allergic rhinitis[ICD10: J30.89] Evelyn Cohen MD, [facility] CPT-4: 13903 12/18/2015 ([id number]) Miscellaneous no charge Diagnosis: Essential (primary) hypertension[ICD10: I10] Evelyn Cohen MD, [facility] CPT-4: 25910 12/11/2015 ([id number]) 49465 EST. PATIENT, LEVEL IV Diagnosis: Essential (primary) hypertension[ICD10: I10] Diagnosis: Other abnormal glucose[ICD10: R73.09] Diagnosis: Encounter for immunization[ICD10: Z23] Berenice Cohen MD, [facility] CPT-4: 33249 11/26/2015 ([id number]) Miscellaneous no charge Diagnosis: Bitten by dog, initial encounter[ICD10: W54.0XXA] Evelyn Cohen MD, [facility] CPT-4: 14226 10/29/2015 ([id number]) Miscellaneous no charge Diagnosis: Essential (primary) hypertension[ICD10: I10] Diagnosis: Bitten by dog, initial encounter[ICD10: W54.0XXA] Evelyn Cohen MD, [facility] CPT-4: 76273 10/23/2015 10427 EST. PATIENT, LEVEL III Diagnosis: Cellulitis of face[ICD10: L03.211] Diagnosis: Bitten by dog, initial encounter[ICD10: W54.0XXA] Evleyn Cohen MD, [facility] CPT-4: 49386 10/21/2015 ([id number]) Miscellaneous no charge Diagnosis: Essential (primary) hypertension[ICD10: I10] Evelyn Cohen MD, [facility] CPT-4: 77073 07/15/2015 ([id number]) 68477 EST. PATIENT, LEVEL IV Diagnosis: Essential (primary) hypertension[ICD10: I10] Diagnosis: Mixed hyperlipidemia[ICD10: E78.2] Diagnosis: Dry mouth, unspecified[ICD10: R68.2] Berenice Cohen MD, [facility] CPT-4: 41891 06/15/2015 ([id number]) Miscellaneous no charge Diagnosis: Essential (primary) hypertension[ICD10: I10] Doris Cohen MD, [facility] CPT-4: 09757 06/05/2015 ([id number]) 65392 EST. PATIENT, LEVEL IV Diagnosis: Mammographic microcalcification found on diagnostic imaging of breast [ICD10: R92.0] Diagnosis: Edema, unspecified[ICD10: R60.9] Diagnosis: Essential (primary) hypertension[ICD10: I10] Berenice Cohen MD, [facility] CPT-4: 70144 05/19/2015 27295 EST. PATIENT, LEVEL IV Diagnosis: Other acute sinusitis[ICD10: J01.80] Diagnosis: Acute nasopharyngitis [common cold][ICD10: J00] Diagnosis: Other allergic rhinitis[ICD10: J30.89] Diagnosis: Localized edema[ICD10: R60.0] Diagnosis: Mixed hyperlipidemia[ICD10: E78.2] Evelyn Cohen MD, [facility] CPT-4: 08582 04/24/2015 ([id number]) 21147 EST. PATIENT, LEVEL IV Diagnosis: Essential (primary) hypertension[ICD10: I10] Diagnosis: Abscess of liver[ICD10: K75.0] Diagnosis: Anemia, unspecified[ICD10: D64.9] Berenice Cohen MD, [facility] CPT-4: 88713 03/12/2015 01911 EST. PATIENT, LEVEL IV Diagnosis: Essential (primary) hypertension[ICD10: I10] Diagnosis: Candidal stomatitis[ICD10: B37.0] Diagnosis: Pain in unspecified knee[ICD10: M25.569] Diagnosis: Edema, unspecified[ICD10: R60.9] Evelyn Cohen MD, [facility] CPT- 4: 85290 01/12/2015 ([id number]) 83562 EST. PATIENT, LEVEL III Diagnosis: Pain in right foot[ICD10: M79.671] Berenice Cohen MD, [facility] CPT-4: 43323 12/11/2014 ([id number]) 28057 EST. PATIENT, LEVEL IV Diagnosis: Abscess of liver[ICD10: K75.0] Diagnosis: Hypo-osmolality and hyponatremia[ICD10: E87.1] Diagnosis: Essential (primary) hypertension[ICD10: I10] Diagnosis: VACCIN FOR INFLUENZA[ICD10: Z23] [facility] CPT-4: 70468 12/01/2014 ([id number]) OFFICE VISIT, NEW - LEVEL 4 Diagnosis: ESSENTIAL HYPERTENSION[ICD9: 401.9] Diagnosis: Chronic maxillary sinusitis[ICD9: 473.0] [facility] CPT-4: 08602 08/14/2014 Plan of Care Planned Activity Notes Codes Status Date Visit Plan: Hypertension - well controlled - [...] that Marta have her surgery at [facility] so she can see her as well as any specialists if needed. RX for walker provided to help with stability and prevent falling. 05/22/2018 Patient Education: Patient Medication Summary Completed 05/22/2018 Care Plan: Referral Order SNOMED-CT : [id number] Pending 05/22/2018 Visit Plan: Hypertension - well [...] to medications. 04/11/2018 Appointment: Berenice Cohen WPtel: [address] [place], [place] [phone] (15 min) Moderate 04/11/2018 Patient Education: Patient Medication Summary Completed 04/11/2018 Patient Education: Hypertension Completed 04/11/2018 Patient Education: Cholesterol Management Completed 04/11/2018 Patient Education: Patient Medication Summary Completed 03/30/2018 Care Plan: Comp Metabolic Pending 03/30/2018 Care Plan: Cbc With Differential Pending 03/30/2018 Care Plan: Tsh Pending 03/30/2018 Care Plan: Lipid Pending 03/30/2018 Appointment: Berenice Cohen WPtel: [facility]5 [facility] (15 min) Moderate 03/28/2018 Appointment: Berenice Cohen WPtel: [facility]5 [facility] (15 min) Moderate 03/19/2018 Visit Plan: Sinusitis [...] allergy spray. 02/06/2018 Appointment: Evelyn West WPtel: [facility]5 [facility] (15 min) Moderate 02/06/2018 Patient Education: Patient Medication Summary Completed 02/06/2018 Patient Education: Patient Medication Summary Completed 12/29/2017 Care Plan: %Hba1C LOINC : 44735-2 Pending 12/11/2017 Visit Plan: Sinusitis - Pt [...] allergy spray. 12/08/2017 App[facility]ment[phone] [facility] (15 min) Moderate 12/08/2017 Patient Education: Patient [...] shot today 11/13/2017 App[facility]ment: [phone] (15 min) Moderate 11/13/2017 Patient Education: Patient Medication Summary Completed 11/13/2017 Patient Education: Cholesterol Management Completed 11/13/2017 Visit Plan: Tinea-rx sent to patient's pharmacy and instructed on use-keep groin clean/dry -call if symptoms do not resolve or if any worse HTN-elevated today-monitor and home and call if continues to be elevated 08/29/2017 Appointment: Doris Sheffield WPtel: [phone] [place] [phone] (15 min) Moderate 08/29/2017 Patient Education: Patient [...] any worse 07/28/2017 Appointment: Doris Sheffield WPtel: [facility] [place] [phone] (30 min) Complex 07/28/2017 Patient Education: Patient [...] improve. 06/20/2017 Appointment: Evelyn West WPtel: [phone] (15 min) Moderate 06/20/2017 Patient Education: Patient [...] improving. 05/26/2017 Appointment: Evelyn West WPtel: [phone] [facility] (15 min) Moderate 05/26/2017 Patient Education: Patient [...] concerns. 04/24/2017 Appointment: [facility]Ptel[phone] [facility] (30 min) Complex 04/24/2017 Patient Education: Patient [...] surrogate. 02/08/2017 Appointment: Evelyn West WPtel: [phone] [facility] [facility] - Annual Wellness Visit 02/08/2017 Patient [...] vaccine today 12/22/2016 Appointment: Berenice Cohen WPtel: [phone] [facility] (15 min) Moderate 12/22/2016 Patient Education: Patient [...] spray. 12/16/2016 Appointment: Ev[facility] West WPtel[facility] [phone] [facility] (30 min) Complex 12/16/2016 Patient Education: Patient Medication Summary Completed 12/16/2016 Appointment: [facility] Cohen [facility]el[phone] [facility] (15 min) Moderate 11/15/2016 Visit Plan: Hypertension [...] on carbohydrates. 08/15/2016 Appointment: [facility]Ptel[phone] [facility] (15 min) Moderate 08/15/2016 Patient Education: Patient Medication Summary Completed 08/15/2016 Appointment: Doris Sheffield WPtel: [phone] (15 min) Moderate 08/05/2016 Visit Plan: Allergies [...] show improvement. 08/02/2016 Appointment: Evelyn West WPtel: [facility] (30 min) Complex 08/02/2016 Patient Education: [...] ear flushed 07/21/2016 Appointment: Doris Sheffield WPtel: [facility]9 [phone] (15 min) Moderate 07/21/2016 Patient Education: [...] nightly. 05/16/2016 Appointment: Berenice Cohen WPtel: [phone] (15 min) Moderate 05/16/2016 Patient [...] concerns. 04/06/2016 Appointment: [facility] West [facility]Ptel[phone] [facility] (10 min) Simple 04/06/2016 Patient Education: Patient [...] daily. 03/30/2016 Appointment: Berenice Cohen WPtel: [phone] [facility] (15 min) Moderate 03/30/2016 Patient Education: Patient Medication Summary Completed 03/30/2016 Appointment: Berenice Cohen WPtel: [phone] [facility] (15 min) Moderate 03/24/2016 Visit Plan: Medicare [...] surrogate. 02/01/2016 Appointment: Evelyn West WPtel: [phone] [facility] [facility] - Annual Wellness Visit 02/01/2016 Patient Education: Patient Medication Summary Completed 02/01/2016 Visit Plan: Apthous ulcer - rx for acyclovir 800mg tid x7 days Sample of Voltaren gel to use on knees tid prn 01/25/2016 Appointment: Berenice Cohen WPtel: [phone] [facility] (15 min) Moderate 01/25/2016 Patient [...] home. 12/24/2015 Appointment: Berenice Cohen WPtel: [phone] [facility] (15 min) Moderate 12/24/2015 Patient [...] show improvement. 12/18/2015 Appointment: Doris Sheffield WPtel: [phone] [phone] [place] (15 min) Moderate 12/18/2015 Patient Education: Patient [...] - 11/26/2015 Appointment: Berenice Cohen WPtel: [phone] [facility] (15 min) Moderate 11/26/2015 Patient Education: Patient [...] pain. 10/21/2015 Appointment: Doris Sheffield WPtel: [phone] [phone] (15 min) Moderate 10/21/2015 Patient Education: Patient [...] spray 06/15/2015 Appointment: Beren[facility] Cohen [facility]Ptel: [phone] (15 min) Moderate 06/15/2015 Patient Education: Patient Medication Summary Completed 06/15/2015 Patient Education: Patient Medication Summary Completed 06/12/2015 Appointment: Berenice Cohen WPtel: [facility] (15 min) Moderate 06/11/2015 Appointment: Nurse Visit [...] the day 03/12/2015 Appointment: Berenice Cohen WPtel: [address] [place], [place] [address] (15 min) Moderate 03/12/2015 Patient Education: Patient [...] appointment with then soon. Pt to try [place] rub on the knees to help reduce [...] is sore 12/11/2014 Appointment: Berenice Cohen WPtel: [facility]0 [facility] (15 min) Moderate 12/11/2014 Patient Education: Patient [...] not improving. 12/01/2014 Appointment: Berenice Cohen WPtel: [facility]0 [facility] (15 min) Moderate 12/01/2014 Patient Education: Patient Medication Summary Completed 12/01/2014 Patient Education: Hypertension Completed 12/01/2014 Appointment: Berenice Cohen WPtel: [facility]9 [facility] (15 min) Moderate 09/15/2014 Visit Plan: Hypertension [...] not improve. 08/14/2014 Appointment: Berenice Cohen WPtel: [facility] [place] ([place]) New Patient 08/14/2014 [...] foot where it is sore [employer] registered vascular technologist (rvt) will contact you for a colon screen test - it is a colon cancer screening that you will do at home and send in to the registered vascular technologist (rvt). . No fracture of foot - recommended [...] that Marta have her surgery at [facility] so she can see her as well [...] TWO hours after a meal - try [place] on your knee. Decrease Salt in diet. [...] appointment with then soon. Pt to try [place] rub on the knees to help reduce [...]
[2018-06-30 14:29] LABS: ALBUMIN 4.3 GM/DL (3.2-4.5); BILIRUBIN,TOTAL 0.9 MG/DL (0.1-1.0); CALCIUM 9.8 MG/DL (8.5-10.1); CREATININE SERUM 1.04 MG/DL (0.60-1.30); POTASSIUM 4.1 MMOL/L (3.6-5.0); TOTAL PROTEIN 7.2 GM/DL (6.4-8.2)
--- OUTSIDE RECORDS SUMMARY | 2018-06-30 14:29 | XMS REPORT | CCD ---
Author Author Berenice Cohen Organization Berenice Cohen MD, [facility] Address [address] [place] [address] Phone Care Team Providers Care University Extension Specialist Name Role Phone PP Unavailable CCM Unavailable Summary Purpose Interface Exchange Insurance Providers Payer name Policy type / Coverage type Covered green party ID Effective Begin Date Effective End Date Et3arraf Commercial Insurance [id number] Unknown Unknown Family history Son Diagnosis Age [...] Unknown Retired 08/14/[address]: 211146140 Never smoker 08/14/[address]: 348022727 Never drinks alcohol 08/14/2014 Allergies, Adverse Reactions, Alerts Substance Reaction Codes Entered Date Inactivated Date Status AUGMENTIN hives, RxNorm: 550951 08/14/2014 No Inactive Date Active [id number] REDUCTASE INHIBITORS myalgias, Unknown 2015 No Inactive Date Active Past Medical History Illness Codes Condition Status Onset Date Resolved Date Essential (primary) hypertension ICD-9: 401.9 ICD-10: I10 Active 06/11/2015 Unknown Mixed hyperlipidemia ICD-9: 272.2 ICD-10: E78.2 Active 06/14/2015 Unknown Other abnormal glucose ICD-9: 790.29 ICD-10: R73.09 Active 11/25/2015 Unknown Vitamin D deficiency, unspecified ICD-9: 268.9 ICD-10: E55.9 Active 04/11/2018 Unknown Essential (primary) hypertension ICD-9: 401.1 ICD-10: I10 Active 12/23/2015 Unknown Hypo-osmolality and hyponatremia ICD-9: 276.1 ICD-10: [...] Dates Condition Status Essential (primary) hypertension ICD-9: 401.9 ICD-10: I10 06/11/2015 Active Mixed hyperlipidemia ICD-9: 272.2 ICD-10: E78.2 06/14/2015 Active Other abnormal glucose ICD-9: 790.29 ICD-10: R73.09 11/25/2015 Active Vitamin D deficiency, unspecified ICD-9: 268.9 ICD-10: E55.9 04/11/2018 Active Essential (primary) hypertension ICD-9: 401.1 ICD-10: I10 12/23/2015 Active Hypo-osmolality and hyponatremia ICD-9: 276.1 ICD-10: [...] Instructions Zithromax Z-Dylan 250 mg tablet RxNorm: 474354 1 Tablet(s) PO UD 05/02/2018 No Stop Date Active glipizide 5 mg tablet RxNorm: 554345 1 Tablet(s) PO BID 201808/15/2018 Active glipizide 5 mg tablet RxNorm: 131755 1 Tablet(s) PO BID 201804/17/2018 Inactive Xanax 0.25 mg tablet RxNorm: 376517 1 Tablet(s) PO TID as needed anxiety 04/11/2018 06/09/2018 Active Zithromax Z-Dylan 250 mg tablet RxNorm: 321968 1 Tablet(s) PO UD 02/06/2018 04/17/2018 Inactive Zyrtec 10 mg tablet RxNorm: 2641474 1 Tablet(s) PO daily 12/0801/06/2018 Inactive Zithromax Z-Dylan 250 mg tablet RxNorm: 250490 1 Tablet(s) PO UD 12/08/2017 02/05/2018 Inactive Lipitor 10 mg tablet RxNorm: 244107 1 Tablet(s) PO QHS 201706/21/2018 Active Lipitor 10 mg tablet RxNorm: 868513 TAKE 1 TABLET BY MOUTH EVERY DAY AT BEDTIME 11/24/2017 No Stop Date Active lisinopril 10 mg tablet RxNorm: 068387 1 Tablet(s) PO daily 08/17/2018 Active prednisone 20 mg tablet RxNorm: 132825 2 Tablet(s) PO daily 11/17/2017 Inactive Keflex 500 mg capsule RxNorm: 669912 1 Capsule(s) PO TID and take a probiotic BID x7days 11/07/2017 11/13/2017 Inactive take with probiotic BID amlodipine 5 mg tablet RxNorm: 430019 1 Tablet(s) PO daily 10/06/2018 Active cefdinir 300 mg capsule RxNorm: 871458 1 Capsule(s) PO BID 09/23/2017 Inactive cefdinir 300 mg capsule RxNorm: 305523 1 Capsule(s) PO BID started by Dr. Davila 09/14/2017 09/13/2017 Inactive betamethasone dipropionate 0.05 % topical cream RxNorm: 394354 1 Application TOP BID 08/29/2017 10/09/2017 Inactive mix with clotrimazole and apply to affected area clotrimazole 1 % topical cream RxNorm: 436770 1 Application TOP BID 08/29/2017 10/09/2017 Inactive mix with betamethasone and apply to affected area nystatin 100,000 unit/mL oral suspension RxNorm: 542649 5 Milliliter(s) PO QID 08/29/2017 09/17/2017 Inactive lisinopril 10 mg tablet RxNorm: 146075 1 Tablet(s) PO daily 11/14/2017 Inactive Kenalog 40 mg/mL suspension for injection RxNorm: 9230345 1 Milliliter(s) Inj 07/28/2017 07/28/2017 Inactive nystatin 100,000 unit/mL oral suspension RxNorm: 124276 5 Milliliter(s) PO QID 07/28/2017 08/06/2017 Inactive Keflex 500 mg capsule RxNorm: 341455 1 Capsule(s) PO TID 201708/03/2017 Inactive Flonase Allergy Relief 50 mcg/actuation nasal spray, suspension RxNorm: 2351752 USE ONE SPRAY(S) IN EACH NOSTRIL TWICE DAILY 07/25/2017 No Stop Date Active meclizine 25 mg tablet RxNorm: 496036 TAKE ONE TABLET BY MOUTH THREE TIMES DAILY NEEDED 07/25/2017 No Stop Date Active Voltaren 1 % topical gel RxNorm: 390483 1 Application TOP QID as needed 06/20/2017 No Stop Date Active Zithromax Z-Dylan 250 mg tablet RxNorm: 740087 1 Tablet(s) PO UD 06/20/2017 07/27/2017 Inactive z pack as directed Keflex 500 mg capsule RxNorm: 416518 1 Capsule(s) PO TID 201706/01/2017 Inactive Zithromax Z-Dylan 250 mg tablet RxNorm: 053580 1 Tablet(s) PO UD 04/27/2017 06/19/2017 Inactive z pack as directed lisinopril 10 mg tablet RxNorm: 012832 1 Tablet(s) PO daily 07/22/2017 Inactive Lipitor 10 mg tablet RxNorm: 395249 1 Tablet(s) PO QHS 201711/06/2017 Inactive Zithromax Z-Dylan 250 mg tablet RxNorm: 686834 1 Tablet(s) PO UD 02/15/2017 04/26/2017 Inactive z pack as directed meclizine 25 mg tablet RxNorm: 517529 TAKE ONE TABLET BY MOUTH THREE TIMES DAILY NEEDED 01/23/2017 07/24/2017 Inactive Zithromax Z-Dylan 250 mg tablet RxNorm: 077691 1 Tablet(s) PO UD 01/05/2017 02/14/2017 Inactive z pack as directed losartan 50 mg tablet RxNorm: 132900 1 Tablet(s) PO daily 201604/10/2017 Inactive amlodipine 5 mg tablet RxNorm: 583076 1 Tablet(s) PO daily 10/11/2017 Inactive Zithromax Z-Dylan 250 mg tablet RxNorm: 402632 1 Tablet(s) PO UD 12/16/2016 01/04/2017 Inactive z pack as directed Zyrtec 10 mg tablet RxNorm: 8639340 1 Tablet(s) PO daily 12/1601/14/2017 Inactive Lipitor 10 mg tablet RxNorm: 530817 1 Tablet(s) PO QHS 201602/22/2017 Inactive Zithromax Z-Dylan 250 mg tablet RxNorm: 588683 1 Tablet(s) PO UD 09/27/2016 12/15/2016 Inactive z pack as directed Lipitor 10 mg tablet RxNorm: 815628 1 Tablet(s) PO QHS 201610/25/2016 Inactive guaifenesin 400 mg tablet RxNorm: 233397 1 Tablet(s) PO BID as needed 08/04/2016 No Stop Date Active cefdinir 300 mg capsule RxNorm: 915856 1 Capsule(s) PO BID started by Dr. Davila 08/04/2016 08/13/2016 Inactive amlodipine 10 mg tablet RxNorm: 988403 1 Tablet(s) PO daily 07/201612/21/2016 Inactive Keflex 500 mg capsule RxNorm: 556560 1 Capsule(s) PO TID 201607/27/2016 Inactive Zyrtec 10 mg tablet RxNorm: 4180838 1 Tablet(s) PO daily 07/0107/30/2016 Inactive Xanax 0.25 mg tablet RxNorm: 049796 1 Tablet(s) PO TID as needed anxiety 07/01/2016 08/27/2016 Inactive amlodipine 5 mg tablet RxNorm: 941515 1 Tablet(s) PO daily 06/201607/30/2016 Inactive Keflex 500 mg capsule RxNorm: 883139 1 Capsule(s) PO TID 201607/03/2016 Inactive Keflex 500 mg capsule RxNorm: 418433 1 Capsule(s) PO TID 201606/23/2016 Inactive Keflex 500 mg capsule RxNorm: 485545 1 Capsule(s) PO TID 201606/30/2016 Inactive Flonase Allergy Relief 50 mcg/actuation nasal spray, suspension RxNorm: 6372613 USE ONE SPRAY(S) IN EACH NOSTRIL TWICE DAILY 06/20/2016 05/15/2017 Inactive amlodipine 10 mg tablet RxNorm: 009900 1 Tablet(s) PO daily 04/201606/28/2016 Inactive Lipitor 10 mg tablet RxNorm: 975091 1 Tablet(s) PO QHS 201608/14/2016 Inactive Flonase Allergy Relief 50 mcg/actuation nasal spray, suspension RxNorm: 7085285 USE ONE SPRAY(S) IN EACH NOSTRIL TWICE DAILY 04/18/2016 05/17/2016 Inactive cephalexin 500 mg capsule RxNorm: 085981 1 Capsule(s) PO TID 04/05/2016 Inactive take with probiotics BID amlodipine 10 mg tablet RxNorm: 993663 1 Tablet(s) PO daily 02/201605/29/2016 Inactive Bactroban 2 % topical cream RxNorm: 266471 1 Application TOP BID 03/30/2016 04/08/2016 Inactive Zithromax Z-Dylan 250 mg tablet RxNorm: 870322 1 Tablet(s) PO UD 03/10/2016 05/15/2016 Inactive z pack as directed Keflex 500 mg capsule RxNorm: 072906 1 Capsule(s) PO TID 201502/25/2016 Inactive take with probiotics BID acyclovir 800 mg tablet RxNorm: 440485 1 Tablet(s) PO TID 01/2402/21/2016 Inactive Zithromax Z-Dylan 250 mg tablet RxNorm: 841284 1 Tablet(s) PO UD 01/19/2016 01/24/2016 Inactive z pack Flonase Allergy Relief 50 mcg/actuation nasal spray, suspension RxNorm: 8836314 USE ONE SPRAY(S) IN EACH NOSTRIL TWICE DAILY 12/28/2015 02/25/2016 Inactive Kenalog 40 mg/mL suspension for injection RxNorm: 2781776 Milliliter(s) Inj 12/18/2015 12/18/2015 Inactive Keflex 500 mg capsule RxNorm: 636626 1 Capsule(s) PO TID 201512/24/2015 Inactive Zithromax Z-Dylan 250 mg tablet RxNorm: 003982 1 Tablet(s) PO UD 12/09/2015 12/23/2015 Inactive z pack meclizine 25 mg tablet RxNorm: 968586 1 Tablet(s) PO TID as needed 12/09/2015 12/08/2015 Inactive meclizine 25 mg tablet RxNorm: 999473 1 Tablet(s) PO TID as needed 12/09/2015 02/26/2016 Inactive Keflex 500 mg capsule RxNorm: 588591 1 Capsule(s) PO TID 201511/22/2015 Inactive Cipro 500 mg tablet RxNorm: 550758 1 Tablet(s) PO BID 201511/13/2015 Inactive Keflex 500 mg capsule RxNorm: 878159 1 Capsule(s) PO TID 201510/30/2015 Inactive Xanax 0.25 mg tablet RxNorm: 280571 1 Tablet(s) PO TID as needed anxiety 09/18/2015 11/13/2015 Inactive Keflex 500 mg capsule RxNorm: 761943 1 Capsule(s) PO TID 201508/19/2015 Inactive losartan 50 mg tablet RxNorm: 669485 1 Tablet(s) PO daily 201507/07/2015 Inactive Pepcid 20 mg tablet RxNorm: 477767 1 Tablet(s) PO BID 201507/07/2015 Inactive Pepcid 20 mg tablet RxNorm: 143700 1 Tablet(s) PO BID 201501/31/2016 Inactive losartan 50 mg tablet RxNorm: 276046 1 Tablet(s) PO daily 201501/31/2016 Inactive prednisone 20 mg tablet RxNorm: 995433 2 Tablet(s) PO daily 06/22/2015 Inactive prednisone 20 mg tablet RxNorm: 933560 2 Tablet(s) PO daily 12/23/2015 Inactive Diflucan 100 mg tablet RxNorm: 829298 TAKE ONE TABLET BY MOUTH ONCE DAILY 06/12/2015 12/23/2015 Inactive Zithromax Z-Dylan 250 mg tablet RxNorm: 726380 1 Tablet(s) PO UD 06/05/2015 07/06/2015 Inactive z pack amlodipine 5 mg tablet RxNorm: 090237 1 Tablet(s) PO daily 03/29/2016 Inactive Zetia 10 mg tablet RxNorm: 512856 1 Tablet(s) PO daily 201506/14/2015 Inactive valsartan 160 mg tablet RxNorm: 775765 1 Tablet(s) PO daily 07/07/2015 Inactive Lipitor 10 mg tablet RxNorm: 567803 1 Tablet(s) PO QHS 201505/18/2015 Inactive Lipitor 10 mg tablet RxNorm: 513936 1 Tablet(s) PO QHS 201504/27/2015 Inactive Zithromax 250 mg tablet RxNorm: 017506 Tablet(s) PO UD 201504/28/2015 Inactive Keflex 500 mg capsule RxNorm: 095046 1 Capsule(s) PO TID 201503/22/2015 Inactive Keflex 500 mg capsule RxNorm: 055198 1 Capsule(s) PO TID 201504/01/2015 Inactive Xanax 0.25 mg tablet RxNorm: 429737 1 Tablet(s) PO TID as needed anxiety 03/12/2015 07/04/2016 Inactive carvedilol 25 mg tablet RxNorm: 026036 1 Tablet(s) PO BID 03/1201/31/2016 Inactive amlodipine 5 mg tablet RxNorm: 844503 1 Tablet(s) PO BID 201505/18/2015 Inactive Diflucan 100 mg tablet RxNorm: 525561 1 Tablet(s) PO daily 03/21/2015 Inactive Diflucan 100 mg tablet RxNorm: 648623 1 Tablet(s) PO daily 02/14/2015 Inactive Diflucan 100 mg tablet RxNorm: 340673 1 Tablet(s) PO daily 06/201401/05/2015 Inactive Diflucan 100 mg tablet RxNorm: 841005 1 Tablet(s) PO daily 06/201412/31/2014 Inactive nystatin 100,000 unit/mL oral suspension RxNorm: 430241 5 Milliliter(s) PO QID 12/24/2014 06/14/2015 Inactive nystatin 100,000 unit/mL oral suspension RxNorm: 980329 5 Milliliter(s) PO QID 12/24/2014 12/23/2014 Inactive Zithromax 250 mg tablet RxNorm: 765411 1 Tablet(s) PO daily 12/19/2014 Inactive Zithromax 250 mg tablet RxNorm: 423504 1 Tablet(s) PO daily 12/14/2014 Inactive Flonase Allergy Relief 50 mcg/actuation nasal spray, suspension RxNorm: 1 [place] NASAL BID 12/11/2014 12/10/2014 Inactive Flonase Allergy Relief 50 mcg/actuation nasal spray, suspension RxNorm: 4720986 1 [place] NASAL BID 12/11/20142015 Inactive amlodipine 5 mg tablet RxNorm: 163843 2 Tablet(s) PO daily 11/13/2014 Inactive amlodipine 5 mg tablet RxNorm: 287517 2 Tablet(s) PO daily 03/11/2015 Inactive Lotrisone 1 %-0.05 % topical cream RxNorm: 175388 1 TOP BID until healed 10/17/2014 10/30/2014 Inactive Lotrisone 1 %-0.05 % topical cream RxNorm: 291748 1 TOP BID until healed 10/16/2014 10/16/2014 Inactive Lotrisone 1 %-0.05 % topical cream RxNorm: 391388 1 TOP BID until healed 10/06/2014 10/15/2014 Inactive Keflex 500 mg capsule RxNorm: 469072 1 Capsule(s) PO TID 201408/11/2014 Inactive Keflex 500 mg capsule RxNorm: 462530 1 Capsule(s) PO TID 201408/18/2014 Inactive clotrimazole 1 % topical solution RxNorm: 895242 1 Drop(s) TOP BID No Start Date Active Vitamin D3 5,000 unit tablet RxNorm: 899595 1 Tablet(s) PO daily No Start Date Active guaifenesin 400 mg tablet RxNorm: 357959 1 Tablet(s) PO BID as needed No Start Date 08/03/2016 Inactive Lotrisone 1 %-0.05 % topical cream RxNorm: 307061 1 TOP BID until healed No Start Date 10/05/2014 Inactive lisinopril 40 mg tablet RxNorm: 844338 1 Tablet(s) PO daily No Start Date 05/18/2015 Inactive amlodipine 5 mg tablet RxNorm: 472624 1 Tablet(s) PO daily No Start Date 11/13/2014 Inactive indapamide 1.25 mg tablet RxNorm: 533491 1 Tablet(s) PO daily No Start Date 01/31/2016 Inactive aspirin 81 mg tablet RxNorm: 830868 1 Tablet(s) PO daily No Start Date 02/07/2017 Inactive Medication Administered Medication Codes Instructions Start Date Status Kenalog 40 mg/mL suspension for injection RxNorm: 3248159 1Milliliter 07/28/2017 No longer Active Kenalog 40 mg/mL suspension for injection RxNorm: 3979200 Milliliter 12/18/2015 No longer Active Immunizations Vaccine Codes Date Status Influenza CVX: 141 11/13/2017 completed Influenza CVX: 141 12/05/2016 completed Influenza CVX: 141 11/26/2015 completed PPD Unknown 06/05/2015 completed Influenza CVX: 141 12/01/2014 completed Influenza CVX: 141 11/27/2012 completed Pneumococcal CVX: 33 11/28/2011 completed Assessments Condition Codes Effective Dates Essential (primary) hypertension ICD-10: I10 ICD-9: 401.9 04/11/2018 Vitamin D deficiency, unspecified ICD-10: E55.9 ICD-9: 268.9 04/11/2018 Mixed hyperlipidemia ICD-10: E78.2 ICD-9: 272.2 04/11/2018 Other abnormal glucose ICD-10: R73.09 ICD-9: 790.29 04/11/2018 Hypo-osmolality and hyponatremia ICD-10: E87.1 ICD-9: 276.1 03/30/2018 Essential (primary) hypertension ICD-10: I10 ICD-9: 401.1 03/30/2018 Other acute sinusitis ICD-10: J01.80 ICD-9: [...] Visit Reason For Visit Effective Dates Notes hypertension 04/11/2018 sinus congestion 02/06/2018 sinus congestion [...] Observation Code Item Item Code Result Date Tsh Ord6 TSH (3rd IS) 2.85 uIU/mL 04/11/2018 Comp Metabolic Hoe950 NA 138 mEq/L 04/11/2018 Comp Metabolic Rgl219 K 4.4 mEq/L 04/11/2018 Comp Metabolic Bzn496 CL 101 mEq/L 04/11/2018 Comp Metabolic Iff909 CO2 29.0 mEq/L 04/11/2018 Comp Metabolic Bjq864 ANION GAP 12 04/11/2018 Comp Metabolic Inz453 GLUCOSE 120 mg/dL 04/11/2018 Comp Metabolic Ysp742 Creat 1.2 mg/dL 04/11/2018 Comp Metabolic Fvw743 eGFR 47 ml/min/1.73m2 04/11/2018 Comp Metabolic Jzd612 BUN 23 mg/dL 04/11/2018 Comp Metabolic Wgi482 B/C Ratio 19.7 Ratio 04/11/2018 Comp Metabolic Lxl537 CALCIUM 10.3 mg/dL 04/11/2018 Comp Metabolic Qhe936 ALK PHOS 40 U/L 04/11/2018 Comp Metabolic Yez004 AST(SGOT) 15 U/L 04/11/2018 Comp Metabolic Tgq471 ALT(SGPT) 9 U/L 04/11/2018 Comp Metabolic Zni125 BILI T 1.0 mg/dL 04/11/2018 Comp Metabolic Tpq475 ALBUMIN 4.3 g/dL 04/11/2018 Comp Metabolic Pms917 TPRO 6.8 g/dL 04/11/2018 Comp Metabolic Zlr881 GLOB 2.5 g/dL 04/11/2018 Comp Metabolic Kgi956 A/G Ratio 1.7 Ratio 04/11/2018 Comp Metabolic Wlw601 Osmo 281 mOsmo 04/11/2018 Vitamin D 25 Oh Rkv6022 VITAMIN D, 25 HYDROXY 48.86 ng/mL Lipid Ord30 CHOL 150 mg/dL 04/11/2018 Lipid Ord30 HDL 38.0 mg/dl 04/11/2018 Lipid Ord30 TRIG 203 mg/dL 04/11/2018 Lipid Ord30 LDL 71 mg/dL 04/11/2018 Lipid Ord30 C/HDL 3.9 Ratio 04/11/2018 %Hba1C Iox705 % HbA1c 98106-0 7.1 % 04/11/2018 %Hba1C Vca801 Gluc Ave 157 mg/dL 04/11/2018 Cbc With Differential Ord2 WBC 9.05 K/ul [...] 30.8 pg 04/11/2018 Cbc With Differential Ord2 [place]% 13.0 % 04/11/2018 Cbc With Differential Ord2 [...] 3.09 K/ul 04/11/2018 Cbc With Differential Ord2 [place] ABS# 1.2 K/ul 04/11/2018 Cbc With Differential Ord2 Eos ABS# 0.2 K/ul 04/11/2018 Cbc With Differential Ord2 Baso ABS# 0.1 K/ul 04/11/2018 %Hba1C Bnd579 % HbA1c 74329-7 6.5 % 12/01/2016 %Hba1C Vpl548 Gluc Ave 140 mg/dL 12/01/2016 Lipid Ord30 [...] follow 06/24/2016 Urinalysis Ord28 U-Yeast NEGATIVE 06/24/2016 Lipid Ord30 CHOL 265 mg/dL 04/12/2016 Lipid Ord30 HDL 42.0 mg/dl 04/12/2016 Lipid Ord30 TRIG 246 mg/dL 04/12/2016 Lipid Ord30 LDL 174 mg/dL 04/12/2016 Lipid Ord30 C/HDL 6.3 Ratio 04/12/2016 Cbc With Differential Ord2 WBC 8.04 K/ul [...] 31.3 pg 04/12/2016 Cbc With Differential Ord2 [place]% 13.3 % 04/12/2016 Cbc With Differential Ord2 [...] 2.85 K/ul 04/12/2016 Cbc With Differential Ord2 [place] ABS# 1.1 K/ul 04/12/2016 Cbc With Differential Ord2 Eos ABS# 0.1 K/ul 04/12/2016 Cbc With Differential Ord2 Baso ABS# 0.0 K/ul 04/12/2016 Comp Metabolic Xag137 NA 129 mEq/L 04/12/2016 Comp Metabolic Mjn508 K 4.0 mEq/L 04/12/2016 Comp Metabolic Rzm284 CL 93 mEq/L 04/12/2016 Comp Metabolic Xkg408 CO2 29.0 mEq/L 04/12/2016 Comp Metabolic Xef675 ANION GAP 11 04/12/2016 Comp Metabolic Kly894 GLUCOSE 100 mg/dL 04/12/2016 Comp Metabolic Mkw604 Creat 1.0 mg/dL 04/12/2016 Comp Metabolic Hon887 eGFR 55 ml/min/1.73m2 04/12/2016 Comp Metabolic Hdv815 BUN 19 mg/dL 04/12/2016 Comp Metabolic Tbn579 B/C Ratio 18.8 Ratio 04/12/2016 Comp Metabolic Cmr379 CALCIUM 9.3 mg/dL 04/12/2016 Comp Metabolic Uci379 ALK PHOS 38 U/L 04/12/2016 Comp Metabolic Jhi990 AST(SGOT) 17 U/L 04/12/2016 Comp Metabolic Awl786 ALT(SGPT) 11 U/L 04/12/2016 Comp Metabolic Onx756 BILI T 1.0 mg/dL 04/12/2016 Comp Metabolic Hnv406 ALBUMIN 4.2 g/dL 04/12/2016 Comp Metabolic Yjc038 TPRO 6.6 g/dL 04/12/2016 Comp Metabolic Kvf426 GLOB 2.4 g/dL 04/12/2016 Comp Metabolic Srk874 A/G Ratio 1.8 Ratio 04/12/2016 Comp Metabolic Qkr099 Osmo 261 mOsmo 04/12/2016 Tsh Ord6 hTSH II 2.49 uIU/mL 04/12/2016 Lipid Ord30 CHOL 250 mg/dL 06/12/2015 Lipid [...] 30.6 pg 06/12/2015 Cbc With Differential Ord2 [place]% 11.0 % 06/12/2015 Cbc With Differential Ord2 [...] 1.96 K/ul 06/12/2015 Cbc With Differential Ord2 [place] ABS# 0.9 K/ul 06/12/2015 Cbc With Differential Ord2 Eos ABS# 0.2 K/ul 06/12/2015 Cbc With Differential Ord2 Baso ABS# 0.0 K/ul 06/12/2015 Cbc With Differential Ord2 New Analyzer Notice Please note new ref ranges starting 03-11-2015 due to implemntation of new five part differential hematolgy analyzer. 06/12/2015 Comp Metabolic Xhb279 NA 137 mEq/L 06/12/2015 Comp Metabolic Kuh037 K 4.4 mEq/L 06/12/2015 Comp Metabolic Svz827 CL 103 mEq/L 06/12/2015 Comp Metabolic Zxn699 CO2 27.0 mEq/L 06/12/2015 Comp Metabolic Lds318 ANION GAP 11 06/12/2015 Comp Metabolic Ooz214 GLUCOSE 87 mg/dL 06/12/2015 Comp Metabolic Ure717 Creat 1.3 mg/dL 06/12/2015 Comp Metabolic Gby979 eGFR 43 ml/min/1.73m2 06/12/2015 Comp Metabolic Wxz448 BUN 32 mg/dL 06/12/2015 Comp Metabolic Tkg106 B/C Ratio 25.4 Ratio 06/12/2015 Comp Metabolic Gnp758 CALCIUM 9.5 mg/dL 06/12/2015 Comp Metabolic Txw585 ALK PHOS 36 U/L 06/12/2015 Comp Metabolic Krr788 AST(SGOT) 16 U/L 06/12/2015 Comp Metabolic Odm894 ALT(SGPT) 17 U/L 06/12/2015 Comp Metabolic Nwm164 BILI T 1.0 mg/dL 06/12/2015 Comp Metabolic Led373 ALBUMIN 4.1 g/dL 06/12/2015 Comp Metabolic Npd573 TPRO 6.5 g/dL 06/12/2015 Comp Metabolic Twx360 GLOB 2.5 g/dL 06/12/2015 Comp Metabolic Kur084 A/G Ratio 1.7 Ratio 06/12/2015 Comp Metabolic Pca567 Osmo 280 mOsmo 06/12/2015 Tsh Ord6 hTSH II 1.83 uIU/mL 06/12/2015 Comp Metabolic Azw570 NA 139 mEq/L 03/12/2015 Comp Metabolic Bvr608 K 4.2 mEq/L 03/12/2015 Comp Metabolic Dgk049 CL 101 mEq/L 03/12/2015 Comp Metabolic Ops258 CO2 28.0 mEq/L 03/12/2015 Comp Metabolic Bpu867 ANION GAP 14 03/12/2015 Comp Metabolic Cqz297 GLUCOSE 78 mg/dL 03/12/2015 Comp Metabolic Lsn853 Creat 1.1 mg/dL 03/12/2015 Comp Metabolic Oqv623 eGFR 51 ml/min/1.73m2 03/12/2015 Comp Metabolic Goy334 BUN 17 mg/dL 03/12/2015 Comp Metabolic Wny450 B/C Ratio 15.6 Ratio 03/12/2015 Comp Metabolic Hhk948 CALCIUM 9.4 mg/dL 03/12/2015 Comp Metabolic Vkh508 ALK PHOS 46 U/L 03/12/2015 Comp Metabolic Hyn836 AST(SGOT) 16 U/L 03/12/2015 Comp Metabolic Bcy998 ALT(SGPT) 12 U/L 03/12/2015 Comp Metabolic Cmq234 BILI T 0.8 mg/dL 03/12/2015 Comp Metabolic Yvo740 ALBUMIN 4.1 g/dL 03/12/2015 Comp Metabolic Tpc405 TPRO 6.6 g/dL 03/12/2015 Comp Metabolic Ksy769 GLOB 2.6 g/dL 03/12/2015 Comp Metabolic Nei176 A/G Ratio 1.6 Ratio 03/12/2015 Comp Metabolic Uyb034 Osmo 278 mOsmo 03/12/2015 Cbc With Differential Ord2 WBC 9.13 K/ul [...] 30.3 pg 03/12/2015 Cbc With Differential Ord2 [place]% 10.7 % 03/12/2015 Cbc With Differential Ord2 [...] 2.00 K/ul 03/12/2015 Cbc With Differential Ord2 [place] ABS# 1.0 K/ul 03/12/2015 Cbc With Differential Ord2 Eos ABS# 0.1 K/ul 03/12/2015 Cbc With Differential Ord2 Baso ABS# 0.0 K/ul 03/12/2015 Cbc With Differential Ord2 New Analyzer Notice Please note new ref ranges starting 03-11-2015 due to implemntation of new five part differential hematolgy analyzer. 03/12/2015 Lipid Ord30 CHOL 289 mg/dL 03/12/2015 [...] With Differential Ord2 RDW 14.2 % 01/12/2015 Comp Metabolic Mbq207 NA 132 mEq/L 12/01/2014 Comp Metabolic Ena807 K 4.4 mEq/L 12/01/2014 Comp Metabolic Xaf000 CL 99 mEq/L 12/01/2014 Comp Metabolic Quz779 CO2 27.0 mEq/L 12/01/2014 Comp Metabolic Ynl618 ANION GAP 10 12/01/2014 Comp Metabolic Rdu737 GLUCOSE 86 mg/dL 12/01/2014 Comp Metabolic Toq328 Creat 1.2 mg/dL 12/01/2014 Comp Metabolic Joa899 eGFR 46 ml/min/1.73m2 12/01/2014 Comp Metabolic Hsj534 BUN 32 mg/dL 12/01/2014 Comp Metabolic Atp758 B/C Ratio 27.1 Ratio 12/01/2014 Comp Metabolic Thz645 CALCIUM 9.4 mg/dL 12/01/2014 Comp Metabolic Kww227 ALK PHOS 35 U/L 12/01/2014 Comp Metabolic Mqu586 AST(SGOT) 14 U/L 12/01/2014 Comp Metabolic Qfd030 ALT(SGPT) 13 U/L 12/01/2014 Comp Metabolic Vrv167 BILI T 0.8 mg/dL 12/01/2014 Comp Metabolic Bcn199 ALBUMIN 4.0 g/dL 12/01/2014 Comp Metabolic Xdl732 TPRO 6.8 g/dL 12/01/2014 Comp Metabolic Osh929 GLOB 2.8 g/dL 12/01/2014 Comp Metabolic Uxu170 A/G Ratio 1.4 Ratio 12/01/2014 Comp Metabolic Zbw450 Osmo 271 mOsmo 12/01/2014 Tsh Ord6 hTSH II 3.15 uIU/mL 12/01/2014 Cbc With Differential Ord2 WBC 11.8 K/uL [...] With Differential Ord2 RDW 17.7 % 12/01/2014 Review of Systems System Result Effective [...] FLU VACC PRSV FREE INC ANTIG CPT-4: 61145 11/13/2017 ADMIN INFLUENZA VIRUS VAC CPT-4: G0008 11/13/2017 TRIAMCINOLONE ACET INJ NOS CPT-4: J3301 07/28/2017 PPPS, SUBSEQ VISIT CPT -4: G0439 02/08/2017 URINALYSIS NONAUTO W/O SCOPE CPT-4: 70275 08/15/2016 PPPS, SUBSEQ VISIT CPT -4: G0439 02/01/2016 TRIAMCINOLONE ACET INJ NOS CPT-4: J3301 12/18/2015 ADMIN INFLUENZA VIRUS VAC CPT-4: G0008 11/26/2015 FLU VACC 4 GISELA 3 YRS PLUS IM Formatting Model/CDA Sections, Assigned to/Malina Mazariegos SNOMED CT: 00278237 CPT-4: 63462Nyesgzg 11/26/2015 URINALYSIS NONAUTO W/O SCOPE CPT-4: 95133 11/20/2015 URINALYSIS NONAUTO W/O SCOPE CPT-4: 08931 11/13/2015 IMMUNIZATION ADMIN CPT -4: 49914 12/01/2014 FLU VACC 4 GISELA 3 YRS PLUS IM Formatting Model/CDA Sections, Assigned to/Malina Mazariegos SNOMED CT: [id number] CPT-4: 29931Erdzchb 12/01/2014 Vital Signs Date Vital 04/11/2018 Blood Pressure 1: 142/56 Code : 8480-6 BMI: 25.1 Code : 78919-2 Heart Rate 1 : 68 bpm Height: 5'1" SpO2: 96% Weight: 133 lbs 02/06/2018 Blood Pressure 1: 142/60 Code : 8480-6 BMI: 25.3 Code : 71632-2 Heart Rate 1 : 68 bpm Height: 5'1" SpO2: 99% Temperature: 37.0 (C) / 98.6 (F) Weight: 134 lbs 12/08/2017 Blood Pressure 1: 140/52 Code : 8480-6 BMI: 25.5 Code : 88670-2 Heart Rate 1 : 77 bpm Height: 5'1" SpO2: 96% Temperature: 36.6 (C) / 97.9 (F) Weight: 135 lbs 11/13/2017 Blood Pressure 1: 134/54 Code : 8480-6 BMI: 24.8 Code : 07813-1 Heart Rate 1 : 73 bpm Height: 5'1" SpO2: 98% Weight: 131 lbs 08/29/2017 Blood Pressure 1: 162/64 Code : 8480-6 BMI: 24.9 Code : 46803-2 Heart Rate 1 : 61 bpm Height: 5'1" SpO2: 96% Weight: 132 lbs 07/28/2017 Blood Pressure 1: 148/62 Code : 8480-6 BMI: 25.1 Code : 40907-2 Heart Rate 1 : 67 bpm Height: 5'1" SpO2: 99% Temperature: 36.4 (C) / 97.5 (F) Weight: 133 lbs 06/20/2017 Blood Pressure 1: 140/52 Code : 8480-6 BMI: 25.3 Code : 66421-6 Heart Rate 1 : 64 bpm Height: 5'1" SpO2: 98% Weight: 134 lbs 05/26/2017 Blood Pressure 1: 140/56 Code : 8480-6 BMI: 25.7 Code : 20000-7 Heart Rate 1 : 74 bpm Height: 5'1" SpO2: 95% Weight: 136 lbs 04/24/2017 Blood Pressure 1: 140/68 Code : 8480-6 BMI: 24.6 Code : 85272-9 Heart Rate 1 : 67 bpm Height: 5'1" SpO2: 97% Weight: 130 lbs 02/08/2017 Blood Pressure 1: 134/76 Code : 8480-6 BMI: 24.9 Code : 09720-5 Heart Rate 1 : 67 bpm Height: 5'1" SpO2: 98% Waist Measure (cm): 42833 cm Weight: 132 lbs 12/22/2016 Blood Pressure 1: 156/80 Code : 8480-6 BMI: 24.2 Code : 79796-7 Heart Rate 1 : 65 bpm Height: 5'1" SpO2: 98% Weight: 128 lbs 12/16/2016 Blood Pressure 1: 138/62 Code : 8480-6 BMI: 23.8 Code : 67546-4 Heart Rate 1 : 63 bpm Height: 5'1" SpO2: 98% Weight: 126 lbs 08/15/2016 Blood Pressure 1: 130/60 Code : 8480-6 BMI: 25.3 Code : 30880-6 Heart Rate 1 : 72 bpm Height: 5'1" SpO2: 95% Weight: 134 lbs 08/02/2016 Blood Pressure 1: 160/62 Code : 8480-6 BMI: 25.3 Code : 63915-3 Heart Rate 1 : 67 bpm Height: 5'1" SpO2: 97% Weight: 134 lbs 07/21/2016 Blood Pressure 1: 148/66 Code : 8480-6 BMI: 25.9 Code : 90137-6 Heart Rate 1 : 71 bpm Height: 5'1" SpO2: 97% Temperature: 36.8 (C) / 98.2 (F) Weight: 137 lbs 07/01/2016 Blood Pressure 1: 142/72 Code : 8480-6 BMI: 26.5 Code : 24979-2 Heart Rate 1 : 68 bpm Height: 5'1" SpO2: 94% Weight: 140 lbs 05/16/2016 Blood Pressure 1: 162/76 Code : 8480-6 Blood Pressure 1: 138/68 Code: 8480-6 BMI: 25.7 Code: 18096-6 Heart Rate 1: 58 bpm Height: 5'1" SpO2: 98% Weight: 136 lbs 04/06/2016 Blood Pressure 1: 162/72 Code : 8480-6 Blood Pressure 1: 138/74 Code: 8480-6 BMI: 25.7 Code: 96567-3 Heart Rate 1: 75 bpm Height: 5'1" SpO2: 97% Weight: 136 lbs 03/30/2016 Blood Pressure 1: 188/80 Code : 8480-6 BMI: 26.3 Code : 67968-9 Heart Rate 1 : 75 bpm Height: 5'1" SpO2: 98% Weight: 139 lbs 02/01/2016 Blood Pressure 1: 140/72 Code : 8480-6 BMI: 25.3 Code : 68838-7 Heart Rate 1 : 65 bpm Height: 5'1" SpO2: 97% Waist Measure (cm): 84 cm Weight: 134 lbs 01/25/2016 Blood Pressure 1: 140/74 Code : 8480-6 BMI: 25.1 Code : 12239-3 Heart Rate 1 : 66 bpm Height: 5'1" SpO2: 98% Weight: 133 lbs 12/24/2015 Blood Pressure 1: 142/66 Code : 8480-6 BMI: 24.9 Code : 75655-2 Heart Rate 1 : 54 bpm Height: 5'1" SpO2: 97% Weight: 132 lbs 12/18/2015 Blood Pressure 1: 152/62 Code : 8480-6 BMI: 25.5 Code : 86593-0 Heart Rate 1 : 66 bpm Height: 5'1" SpO2: 96% Weight: 135 lbs 12/11/2015 Blood Pressure 1: 136/54 Code : 8480-6 Heart Rate 1: 72 bpm SpO2: 98% Weight: 137 lbs 11/26/2015 Blood Pressure 1: 142/70 Code : 8480-6 BMI: 25.3 Code : 34580-0 Heart Rate 1 : 64 bpm Height: 5'1" SpO2: 97% Weight: 134 lbs 11/20/2015 Blood Pressure 1: 154/70 Code : 8480-6 Heart Rate 1: 65 bpm SpO2: 98% 10/23/2015 Blood Pressure 1: 138/62 Code : 8480-6 Heart Rate 1: 55 bpm SpO2: 98% 10/21/2015 Blood Pressure 1: 142/68 Code : 8480-6 BMI: 25.7 Code : 83391-5 Heart Rate 1 : 73 bpm Height: 5'1" SpO2: 98% Weight: 136 lbs 07/15/2015 Blood Pressure 1: 130/60 Code : 8480-6 BMI: 26.6 Code : 58813-1 Heart Rate 1 : 70 bpm Height: 5'1" SpO2: 97% Weight: 141 lbs 06/15/2015 Blood Pressure 1: 118/64 Code : 8480-6 BMI: 24.9 Code : 04808-9 Heart Rate 1 : 66 bpm Height: 5'1" SpO2: 99% Weight: 132 lbs 06/05/2015 Blood Pressure 1: 142/60 Code : 8480-6 Blood Pressure 1: 135/58 Code: 8480-6 Heart Rate 1: 64 bpm SpO2: 99% 05/19/2015 Blood Pressure 1: 146/60 Code : 8480-6 BMI: 27.1 Code : 51219-7 Heart Rate 1 : 66 bpm Height: 5'1" SpO2: 97% Weight: 143 lbs 8 oz 04/24/2015 Blood Pressure 1: 148/58 Code : 8480-6 BMI: 25.9 Code : 25711-3 Heart Rate 1 : 61 bpm Height: 5'1" SpO2: 98% Weight: 137 lbs 03/12/2015 Blood Pressure 1: 140/72 Code : 8480-6 BMI: 25.1 Code : 97314-4 Heart Rate 1 : 68 bpm Height: 5'1" SpO2: 98% Weight: 133 lbs 01/12/2015 Blood Pressure 1: 146/60 Code : 8480-6 BMI: 25.7 Code : 81655-2 Heart Rate 1 : 48 bpm Height: 5'1" SpO2: 97% Weight: 136 lbs 12/11/2014 Blood Pressure 1: 144/56 Code : 8480-6 Blood Pressure 1: 125/65 Code: 8480-6 BMI: 25.1 Code: 86739-5 Heart Rate 1: 56 bpm Height: 5'1" SpO2: 96% Weight: 133 lbs 12/01/2014 Blood Pressure 1: 136/60 Code : 8480-6 Heart Rate 1: 56 bpm SpO2: 96% Weight: 131 lbs 5 oz 08/14/2014 Blood Pressure 1: 132/72 Code : 8480-6 BMI: 25.5 Code : 62469-7 Heart Rate 1 : 73 bpm Height: 5'1" SpO2: 94% Weight: 135 lbs Functional Status No Functional Status data History of Present Illness Symptom Name Status Result Effective Date Notes Quality chronic 04/11 None Quality primary hypertension [...] Annual Medicare Wellness Exam Handling Stress usually kisrtie effectively 02/08/2017 None Annual Medicare Wellness Exam [...] Encounters Encounter Performer Location Codes Date () 29335 EST. PATIENT, LEVEL IV Diagnosis: Essential (primary) hypertension[ICD10: I10] Diagnosis: Other abnormal glucose[ICD10: R73.09] Diagnosis: Mixed hyperlipidemia[ICD10: E78.2] Diagnosis: Vitamin D deficiency, unspecified[ICD10: E55.9] Berenice Cohen MD, [facility] CPT-4: 34114 04/11/2018 91349 EST. PATIENT, LEVEL IV Diagnosis: Other acute sinusitis[ICD10: J01.80] Diagnosis: Other allergic rhinitis[ICD10: J30.89] Evelyn Cohen MD, [facility] CPT-4: 28150 02/06/2018 70994 EST. PATIENT, LEVEL III Diagnosis: Other allergic rhinitis[ICD10: J30.89] Diagnosis: Other acute sinusitis[ICD10: J01.80] Evelyn Cohen MD, [facility] CPT-4: 23907 12/08/2017 ([id number]) 26063 EST. PATIENT, LEVEL IV Diagnosis: Essential (primary) hypertension[ICD10: I10] Diagnosis: Chronic maxillary sinusitis[ICD10: J32.0] Diagnosis: Mixed hyperlipidemia[ICD10: E78.2] Diagnosis: Other abnormal glucose[ICD10: R73.09] Berenice Cohen MD, [facility] CPT-4: 71482 11/13/2017 ([id number]) 86145 EST. PATIENT, LEVEL III Diagnosis: Tinea corporis[ICD10: B35.4] Diagnosis: Essential (primary) hypertension[ICD10: I10] Doris Cohen MD, [facility] CPT-4: 10383 08/29/2017 ([id number]) 25798 EST. PATIENT, LEVEL III Diagnosis: Acute recurrent maxillary sinusitis[ICD10: J01.01] Diagnosis: Other allergic rhinitis[ICD10: J30.89] Doris Cohen MD, [facility] CPT-4: 79810 07/28/2017 82165 EST. PATIENT, LEVEL IV Diagnosis: Other acute sinusitis[ICD10: J01.80] Diagnosis: Other allergic rhinitis[ICD10: J30.89] Diagnosis: Otalgia, bilateral[ICD10: H92.03] Diagnosis: Pain in right knee[ICD10: M25.561] Diagnosis: Pain in left knee[ICD10: M25.562] Evelyn Cohen MD, [facility] CPT -4: 10761 06/20/2017 79995 EST. PATIENT, LEVEL IV Diagnosis: Other acute sinusitis[ICD10: J01.80] Diagnosis: Other allergic rhinitis[ICD10: J30.89] Diagnosis: Gastro-esophageal reflux disease without esophagitis[ICD10: K21.9] Evelyn Cohen MD, [facility] CPT-4: 41524 05/26/2017 43899 EST. PATIENT, LEVEL III Diagnosis: Essential (primary) hypertension[ICD10: I10] Evelyn Cohen MD, [facility] CPT-4: 50439 04/24/2017 ([id number]) 55044 EST. PATIENT, LEVEL IV Diagnosis: Essential (primary) hypertension[ICD10: I10] Diagnosis: Other abnormal glucose[ICD10: R73.09] Diagnosis: Mixed hyperlipidemia[ICD10: E78.2] Berenice Cohen MD, [facility] CPT-4: 02412 12/22/2016 98566 EST. PATIENT, LEVEL IV Diagnosis: Other acute sinusitis[ICD10: J01.80] Diagnosis: Other allergic rhinitis[ICD10: J30.89] Evelyn Cohen MD, [facility] CPT-4: 59505 12/16/2016 ([id number]) 68317 EST. PATIENT, LEVEL IV Diagnosis: Essential (primary) hypertension[ICD10: I10] Diagnosis: Mixed hyperlipidemia[ICD10: E78.2] Diagnosis: Dysuria[ICD10: R30.0] Berenice Cohen MD, [facility] CPT-4: 84312 08/15/2016 95615 EST. PATIENT, LEVEL III Diagnosis: Other acute sinusitis[ICD10: J01.80] Diagnosis: Other allergic rhinitis[ICD10: J30.89] Diagnosis: Otalgia, bilateral[ICD10: H92.03] Evelyn Cohen MD, [facility] CPT -4: 72558 08/02/2016 ([id number]) 00255 EST. PATIENT, LEVEL III Diagnosis: Acute recurrent maxillary sinusitis[ICD10: J01.01] Diagnosis: Otalgia, right ear[ICD10: H92.01] Doris Cohen MD, [facility] CPT-4: 21607 07/21/2016 60095 EST. PATIENT, LEVEL III Diagnosis: Dysuria[ICD10: R30.0] Diagnosis: Other allergic rhinitis[ICD10: J30.89] Evelyn Cohen MD, [facility] CPT-4: 67203 07/01/2016 ([id number]) 22976 EST. PATIENT, LEVEL IV Diagnosis: Essential (primary) hypertension[ICD10: I10] Diagnosis: Mixed hyperlipidemia[ICD10: E78.2] Berenice Cohen MD, [facility] CPT-4: 06381 05/16/2016 21343 EST. PATIENT, LEVEL III Diagnosis: Mixed hyperlipidemia[ICD10: E78.2] Diagnosis: Essential (primary) hypertension[ICD10: I10] Diagnosis: Laceration without foreign body of left hand, subsequent encounter[ ICD10: S61.412D] Evelyn Cohen MD, [facility] CPT-4: 40445 04/06/2016 ([id number]) 41233 EST. PATIENT, LEVEL III Diagnosis: Essential (primary) hypertension[ICD10: I10] Berenice Cohen MD, [facility] CPT-4: 44459 03/30/2016 ([id number]) 93963 EST. 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 PATIENT, LEVEL III Diagnosis: Essential (primary) hypertension[ICD10: I10] Berenice Cohen MD, [facility] CPT-4: 95838 12/24/2015 33868 EST. PATIENT, LEVEL III Diagnosis: Other acute sinusitis[ICD10: J01.80] Diagnosis: Other allergic rhinitis[ICD10: J30.89] Evelyn Cohen MD, [facility] CPT-4: 14799 12/18/2015 ([id number]) Miscellaneous no charge Diagnosis: Essential (primary) hypertension[ICD10: I10] Evelyn Cohne MD [facility] CPT-4: 63936 12/11/2015 ([id number]) 51514 EST. PATIENT, LEVEL IV Diagnosis: Essential (primary) hypertension[ICD10: I10] Diagnosis: Other abnormal glucose[ICD10: R73.09] Diagnosis: Encounter for immunization[ICD10: Z23] Berenice Cohen MD, [facility] CPT-4: 24885 11/26/2015 ([id number]) Miscellaneous no charge Diagnosis: Bitten by dog, initial encounter[ICD10: W54.0XXA] Evelyn Cohen MD [facility] CPT-4: 95277 10/29/2015 ([id number]) Miscellaneous no charge Diagnosis: Essential (primary) hypertension[ICD10: I10] Diagnosis: Bitten by dog, initial encounter[ICD10: W54.0XXA] Evelyn Cohen MD [facility] CPT-4: 46776 10/23/2015 32362 EST. PATIENT, LEVEL III Diagnosis: Cellulitis of face[ICD10: L03.211] Diagnosis: Bitten by dog, initial encounter[ICD10: W54.0XXA] Evelyn Cohen MD, [facility] CPT-4: 66477 10/21/2015 ([id number]) Miscellaneous no charge Diagnosis: Essential (primary) hypertension[ICD10: I10] Evelyn Cohen MD [facility] CPT-4: 06504 07/15/2015 ([id number]) 11100 EST. PATIENT, LEVEL IV Diagnosis: Essential (primary) hypertension[ICD10: I10] Diagnosis: Mixed hyperlipidemia[ICD10: E78.2] Diagnosis: Dry mouth, unspecified[ICD10: R68.2] Berenice Cohen MD, [facility] CPT-4: 30946 06/15/2015 ([id number]) Miscellaneous no charge Diagnosis: Essential (primary) hypertension[ICD10: I10] Doris Cohen MD, [facility] CPT-4: 96512 06/05/2015 ([id number]) 14520 EST. PATIENT, LEVEL IV Diagnosis: Mammographic microcalcification found on diagnostic imaging of breast [ICD10: R92.0] Diagnosis: Edema, unspecified[ICD10: R60.9] Diagnosis: Essential (primary) hypertension[ICD10: I10] Berenice Cohen MD, [facility] CPT-4: 41899 05/19/2015 08772 EST. PATIENT, LEVEL IV Diagnosis: Other acute sinusitis[ICD10: J01.80] Diagnosis: Acute nasopharyngitis [common cold][ICD10: J00] Diagnosis: Other allergic rhinitis[ICD10: J30.89] Diagnosis: Localized edema[ICD10: R60.0] Diagnosis: Mixed hyperlipidemia[ICD10: E78.2] Evelyn Cohen MD, [facility] CPT-4: 10591 04/24/2015 ([id number]) 78835 EST. PATIENT, LEVEL IV Diagnosis: Essential (primary) hypertension[ICD10: I10] Diagnosis: Abscess of liver[ICD10: K75.0] Diagnosis: Anemia, unspecified[ICD10: D64.9] Berenice Cohen MD, [facility] CPT-4: 46515 03/12/2015 45056 EST. PATIENT, LEVEL IV Diagnosis: Essential (primary) hypertension[ICD10: I10] Diagnosis: Candidal stomatitis[ICD10: B37.0] Diagnosis: Pain in unspecified knee[ICD10: M25.569] Diagnosis: Edema, unspecified[ICD10: R60.9] Evelyn Cohen MD, [facility] CPT- 4: 37091 01/12/2015 ([id number]) 89832 EST. PATIENT, LEVEL III Diagnosis: Pain in right foot[ICD10: M79.671] Berenice Cohen MD, [facility] CPT-4: 03259 12/11/2014 ([id number]) 55739 EST. PATIENT, LEVEL IV Diagnosis: Abscess of liver[ICD10: K75.0] Diagnosis: Hypo-osmolality and hyponatremia[ICD10: E87.1] Diagnosis: Essential (primary) hypertension[ICD10: I10] Diagnosis: VACCIN FOR INFLUENZA[ICD10: Z23] Berenice Cohen MD, [facility] CPT-4: 54738 12/01/2014 ([id number]) OFFICE VISIT, NEW - LEVEL 4 Diagnosis: ESSENTIAL HYPERTENSION[ICD9: 401.9] Diagnosis: Chronic maxillary sinusitis[ICD9: 473.0] [facility] CPT-4: 39663 08/14/2014 Plan of Care Planned Activity Notes [...] to medications. 04/11/2018 Appointment: Berenice Cohen WPtel: [facility]5 [phone] (15 min) Moderate 04/11/2018 Patient Education: Patient Medication Summary Completed 04/11/2018 Patient Education: Hypertension Completed 04/11/2018 Patient Education: Cholesterol Management Completed 04/11/2018 Patient Education: Patient Medication Summary Completed 03/30/2018 Care Plan: Comp Metabolic Pending 03/30/2018 Care Plan: Cbc With Differential Pending 03/30/2018 Care Plan: Tsh Pending 03/30/2018 Care Plan: Lipid Pending 03/30/2018 Appointment: Berenice Cohen WPtel[facility] (15 min) Moderate 03/28/2018 Appointment: Berenice Cohen WPtel: [facility] (15 min) Moderate 03/19/2018 Visit Plan: Sinusitis [...] allergy spray. 02/06/2018 Appointment: Evelyn West WPtel: [address] [place] [address] (15 min) Moderate 02/06/2018 Patient Education: Patient Medication Summary Completed 02/06/2018 Patient Education: Patient Medication Summary Completed 12/29/2017 Care Plan: %Hba1C [facility] : 10545-1 Pending 12/11/2017 Visit Plan: Sinusitis - Pt [...] allergy spray. 12/08/2017 Appointment: Evelyn West WPtel: [facility] (15 min) Moderate 12/08/2017 Patient Education: Patient [...] today 11/13/2017 Appointment: Berenice Cohen WPtel: [phone] [facility] (15 min) Moderate 11/13/2017 Patient Education: Patient Medication Summary Completed 11/13/2017 Patient Education: Cholesterol Management Completed 11/13/2017 Visit Plan: Tinea-rx sent to patient's pharmacy and instructed on use-keep groin clean/dry -call if symptoms do not resolve or if any worse HTN-elevated today-monitor and home and call if continues to be elevated 08/29/2017 Appointment: Doris Sheffield WPtel: [phone] [phone] (15 min) Moderate 08/29/2017 Patient Education: [...] worse 07/28/2017 Appointment: Doris Sheffield WPtel: [phone] [phone] (30 min) Complex 07/28/2017 Patient Education: [...] not improve. 06/20/2017 Appointment: Evelyn West WPtel: [facility]5 [facility] (15 min) Moderate 06/20/2017 Patient Education: Patient [...] not improving. 05/26/2017 Appointment: Evelyn West WPtel: [facility]7 [facility] (15 min) Moderate 05/26/2017 Patient Education: Patient [...] acute concerns. 04/24/2017 Appointment: Evelyn West WPtel: [phone] [facility]66[facility] (30 min) Complex 04/24/2017 Patient Education: Patient [...] surrogate. 02/08/2017 Appointment: Evelyn West WPtel: [phone] [facility] [facility] - Annual Wellness Visit 02/08/2017 Patient [...] vaccine today 12/22/2016 Appointment: Berenice Cohen WPtel: [facility] (15 min) Moderate 12/22/2016 Patient Education: Patient [...] allergy spray. 12/16/2016 Appointment: Evelyn West WPtel: [facility]6 [facility] (30 min) Complex 12/16/2016 Patient Education: Patient Medication Summary Completed 12/16/2016 Appointment: Berenice Cohen WPtel: [facility]3 [facility] (15 min) Moderate 11/15/2016 Visit Plan: Hypertension [...] carbohydrates. 08/15/2016 Appointment: Berenice Cohen WPtel: [phone] [facility] (15 min) Moderate 08/15/2016 Patient Education: Patient Medication Summary Completed 08/15/2016 Appointment: Doris Sheffield WPtel: [facility]7 [phone] (15 min) Moderate 08/05/2016 Visit Plan: [...] improvement. 08/02/2016 Appointment: [phone] (30 min) Complex 08/02/2016 Patient Education: Patient [...] ear flushed 07/21/2016 Appointment: [facility]el[phone] (15 min) Moderate 07/21/2016 Patient Education: Patient [...] 10mg nightly. 05/16/2016 Appointment: [facility]el[phone] (15 min) Moderate [...] or concerns. 04/06/2016 Appointment: Evelyn West WPtel: [facility]6 [facility] (10 min) Simple 04/06/2016 Patient Education: [...] daily. 03/30/2016 Appointment: Berenice Cohen WPtel: [phone] [facility] (15 min) Moderate 03/30/2016 Patient Education: Patient Medication Summary Completed 03/30/2016 Appointment: Berenice Cohen WPtel: [phone] [facility] (15 min) Moderate 03/24/2016 Visit Plan: Medicare [...] care surrogate. 02/01/2016 Appointment: Evelyn West WPtel: [facility]3 [facility] [place] [address] - Annual Wellness Visit 02/01/2016 Patient Education: Patient Medication Summary Completed 02/01/2016 Visit Plan: Apthous ulcer - rx for acyclovir 800mg tid x7 days Sample of Voltaren gel to use on knees tid prn 01/25/2016 Appointment: Berenice Cohen WPtel: [facility]1 [phone] (15 min) Moderate 01/25/2016 Patient Education: Patient Medication Summary Completed 01/25/2016 Visit Plan: Hypertension - well controlled - continue with current medications, continue with no added salt diet. Pt has been encouraged to exercise daily. The pt has been advised to call the office if there are any acute concerns about change in blood pressure readings at home. 12/24/2015 Appointment: Breenice Cohen WPtel: [phone] (15 min) Moderate 12/24/2015 Patient Education: Patient [...] improvement. 12/18/2015 Appointment: Doris Sheffield WPtel: [phone] [phone] (15 min) Moderate 12/18/2015 Patient Education: [...] - 11/26/2015 Appointment: Berenice Cohen WPtel: [phone] [facility] (15 min) [...] pain. 10/21/2015 Appointment: Doris Sheffield WPtel: [phone] [place] [phone] [place] (15 min) Moderate 10/21/2015 Patient Education: [...] [phone] [facility] (15 min) Moderate 06/15/2015 Patient Education: Patient Medication Summary Completed 06/15/2015 Patient Education: Patient Medication Summary Completed 06/12/2015 Appointment: Beren[facility] Cohen [facility]Ptel: [phone] [facility] (15 min) Moderate [...] the day 03/12/2015 Appointment: Berenice Cohen WPtel: [facility] (15 min) Moderate [...] appointment with then soon. Pt to try Alvarado Alcova rub on the knees to help reduce [...] is sore 12/11/2014 Appointment: Berenice Cohen WPtel: [address] [place] [address] (15 min) Moderate 12/11/2014 Patient Education: Patient [...] not improving. 12/01/2014 Appointment: Berenice Cohen WPtel: [address] [place], [place] [address] (15 min) Moderate 12/01/2014 Patient Education: Patient Medication Summary Completed 12/01/2014 Patient Education: Hypertension Completed 12/01/2014 Appointment: Berenice Cohen WPtel: [phone] [facility] (15 min) Moderate 09/15/2014 Visit Plan: Hypertension [...] not improve. 08/14/2014 Appointment: Berenice Cohen WPtel: [phone] [facility] [place] ([place]) New Patient 08/14/2014 Patient Education: Patient Medication Summary Completed 08/14/2014 Patient Education: Hypertension Completed 08/14/2014 Instructions Comment . Hypertension - well controlled - continue [...] liver response to medications. flu shot today Start srinivasa daily increase fluids, vitamin C [...] pain is worsening or does not improve. 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 . No fracture of foot - recommended [...] pt is to call for acute concerns. co-enzyme Q10 - Qunol - take daily [...] medications. Restart the lipitor at 10mg nightly. . Apthous ulcer - rx for acyclovir [...] or with any questions or concerns. . Medicare Exam - today we discussed [...] cut back on carbohydrates. prevnar vaccine today Vary the times that you are checking [...] TWO hours after a meal - . Medicare Exam - today we discussed [...] mammogram in 6 months. . Hypertension - continue with current medications, [...] notify clinic with any questions or concerns. try Alvarado Alcova on your knee. Decrease Salt in diet. [...] appointment with then soon. Pt to try Alvarado Alcova rub on the knees to help reduce [...] office if the symptoms are not improving. biotin sweet oil to right ear and [...]
--- OUTSIDE RECORDS SUMMARY | 2018-06-30 14:34 | XMS REPORT | CCD ---
Author Author Berenice Cohen Organization Berenice Cohen MD, 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 Name Role Phone PP Unavailable CCM Unavailable Summary Purpose Interface Exchange Insurance Providers Payer name Policy type / Coverage type Covered constitution party ID Effective Begin Date Effective End Date [employer] Commercial [employer] [id number] Unknown Unknown Family history Son Diagnosis Age [...] Unknown Retired 08/14/[address]: 764986658 Never smoker 08/14/[address]: 896461852 Never drinks alcohol 08/14/2014 Allergies, Adverse Reactions, Alerts Substance Reaction Codes Entered Date Inactivated Date Status AUGMENTIN hives, RxNorm: 349974 08/14/2014 No Inactive Date Active [id number] REDUCTASE INHIBITORS myalgias, Unknown 2015 No Inactive [...] Start Date Stop Date Status Fill Instructions glipizide 5 mg tablet RxNorm: 071736 1 Tablet(s) PO BID 201808/15/2018 Active glipizide 5 mg tablet RxNorm: 354588 1 Tablet(s) PO BID 201804/17/2018 Inactive Xanax 0.25 mg tablet RxNorm: 961283 1 Tablet(s) PO TID as needed anxiety 04/11/2018 06/09/2018 Active Zithromax Z-Dylan 250 mg tablet RxNorm: 050720 1 Tablet(s) PO UD 02/06/2018 04/17/2018 Inactive Zyrtec 10 mg tablet RxNorm: 8804591 1 Tablet(s) PO daily 12/0801/06/2018 Inactive Zithromax Z-Dylan 250 mg tablet RxNorm: 785416 1 Tablet(s) PO UD 12/08/2017 02/05/2018 Inactive Lipitor 10 mg tablet RxNorm: 247301 1 Tablet(s) PO QHS 201706/21/2018 Active Lipitor 10 mg tablet RxNorm: 438666 TAKE 1 TABLET BY MOUTH EVERY DAY AT BEDTIME 11/24/2017 No Stop Date Active lisinopril 10 mg tablet RxNorm: 605669 1 Tablet(s) PO daily 08/17/2018 Active prednisone 20 mg tablet RxNorm: 692824 2 Tablet(s) PO daily 11/17/2017 Inactive Keflex 500 mg capsule RxNorm: 694254 1 Capsule(s) PO TID and take a probiotic BID x7days 11/07/2017 11/13/2017 Inactive take with probiotic BID amlodipine 5 mg tablet RxNorm: 276979 1 Tablet(s) PO daily 10/06/2018 Active cefdinir 300 mg capsule RxNorm: 057292 1 Capsule(s) PO BID 09/23/2017 Inactive cefdinir 300 mg capsule RxNorm: 484225 1 Capsule(s) PO BID started by Dr. Davila 09/14/2017 09/13/2017 Inactive betamethasone dipropionate 0.05 % topical cream RxNorm: 211589 1 Application TOP BID 08/29/2017 10/09/2017 Inactive mix with clotrimazole and apply to affected area clotrimazole 1 % topical cream RxNorm: 163357 1 Application TOP BID 08/29/2017 10/09/2017 Inactive mix with betamethasone and apply to affected area nystatin 100,000 unit/mL oral suspension RxNorm: 437445 5 Milliliter(s) PO QID 08/29/2017 09/17/2017 Inactive lisinopril 10 mg tablet RxNorm: 189823 1 Tablet(s) PO daily 11/14/2017 Inactive Kenalog 40 mg/mL suspension for injection RxNorm: 9400792 1 Milliliter(s) Inj 07/28/2017 07/28/2017 Inactive nystatin 100,000 unit/mL oral suspension RxNorm: 194082 5 Milliliter(s) PO QID 07/28/2017 08/06/2017 Inactive Keflex 500 mg capsule RxNorm: 878985 1 Capsule(s) PO TID 201708/03/2017 Inactive Flonase Allergy Relief 50 mcg/actuation nasal spray, suspension RxNorm: 1109833 USE ONE SPRAY(S) IN EACH NOSTRIL TWICE DAILY 07/25/2017 No Stop Date Active meclizine 25 mg tablet RxNorm: 755461 TAKE ONE TABLET BY MOUTH THREE TIMES DAILY NEEDED 07/25/2017 No Stop Date Active Voltaren 1 % topical gel RxNorm: 806699 1 Application TOP QID as needed 06/20/2017 No Stop Date Active Zithromax Z-Dylan 250 mg tablet RxNorm: 484851 1 Tablet(s) PO UD 06/20/2017 07/27/2017 Inactive z pack as directed Keflex 500 mg capsule RxNorm: 835516 1 Capsule(s) PO TID 201706/01/2017 Inactive Zithromax Z-Dylan 250 mg tablet RxNorm: 351337 1 Tablet(s) PO UD 04/27/2017 06/19/2017 Inactive z pack as directed lisinopril 10 mg tablet RxNorm: 748077 1 Tablet(s) PO daily 07/22/2017 Inactive Lipitor 10 mg tablet RxNorm: 018299 1 Tablet(s) PO QHS 201711/06/2017 Inactive Zithromax Z-Dylan 250 mg tablet RxNorm: 078924 1 Tablet(s) PO UD 02/15/2017 04/26/2017 Inactive z pack as directed meclizine 25 mg tablet RxNorm: 930959 TAKE ONE TABLET BY MOUTH THREE TIMES DAILY NEEDED 01/23/2017 07/24/2017 Inactive Zithromax Z-Dylan 250 mg tablet RxNorm: 223599 1 Tablet(s) PO UD 01/05/2017 02/14/2017 Inactive z pack as directed losartan 50 mg tablet RxNorm: 411252 1 Tablet(s) PO daily 201604/10/2017 Inactive amlodipine 5 mg tablet RxNorm: 366845 1 Tablet(s) PO daily 10/11/2017 Inactive Zithromax Z-Dylan 250 mg tablet RxNorm: 387055 1 Tablet(s) PO UD 12/16/2016 01/04/2017 Inactive z pack as directed Zyrtec 10 mg tablet RxNorm: 3701688 1 Tablet(s) PO daily 12/1601/14/2017 Inactive Lipitor 10 mg tablet RxNorm: 839252 1 Tablet(s) PO QHS 201602/22/2017 Inactive Zithromax Z-Dylan 250 mg tablet RxNorm: 224568 1 Tablet(s) PO UD 09/27/2016 12/15/2016 Inactive z pack as directed Lipitor 10 mg tablet RxNorm: 053440 1 Tablet(s) PO QHS 201610/25/2016 Inactive guaifenesin 400 mg tablet RxNorm: 360249 1 Tablet(s) PO BID as needed 08/04/2016 No Stop Date Active cefdinir 300 mg capsule RxNorm: 096785 1 Capsule(s) PO BID started by Dr. Davila 08/04/2016 08/13/2016 Inactive amlodipine 10 mg tablet RxNorm: 576917 1 Tablet(s) PO daily 07/201612/21/2016 Inactive Keflex 500 mg capsule RxNorm: 072477 1 Capsule(s) PO TID 201607/27/2016 Inactive Zyrtec 10 mg tablet RxNorm: 8615914 1 Tablet(s) PO daily 07/0107/30/2016 Inactive Xanax 0.25 mg tablet RxNorm: 562269 1 Tablet(s) PO TID as needed anxiety 07/01/2016 08/27/2016 Inactive amlodipine 5 mg tablet RxNorm: 694073 1 Tablet(s) PO daily 06/201607/30/2016 Inactive Keflex 500 mg capsule RxNorm: 364380 1 Capsule(s) PO TID 201607/03/2016 Inactive Keflex 500 mg capsule RxNorm: 757445 1 Capsule(s) PO TID 201606/23/2016 Inactive Keflex 500 mg capsule RxNorm: 534510 1 Capsule(s) PO TID 201606/30/2016 Inactive Flonase Allergy Relief 50 mcg/actuation nasal spray, suspension RxNorm: 3242475 USE ONE SPRAY(S) IN EACH NOSTRIL TWICE DAILY 06/20/2016 05/15/2017 Inactive amlodipine 10 mg tablet RxNorm: 056732 1 Tablet(s) PO daily 04/201606/28/2016 Inactive Lipitor 10 mg tablet RxNorm: 329804 1 Tablet(s) PO QHS 201608/14/2016 Inactive Flonase Allergy Relief 50 mcg/actuation nasal spray, suspension RxNorm: 4952925 USE ONE SPRAY(S) IN EACH NOSTRIL TWICE DAILY 04/18/2016 05/17/2016 Inactive cephalexin 500 mg capsule RxNorm: 843252 1 Capsule(s) PO TID 04/05/2016 Inactive take with probiotics BID amlodipine 10 mg tablet RxNorm: 340173 1 Tablet(s) PO daily 02/201605/29/2016 Inactive Bactroban 2 % topical cream RxNorm: 649066 1 Application TOP BID 03/30/2016 04/08/2016 Inactive Zithromax Z-Dylan 250 mg tablet RxNorm: 575329 1 Tablet(s) PO UD 03/10/2016 05/15/2016 Inactive z pack as directed Keflex 500 mg capsule RxNorm: 693704 1 Capsule(s) PO TID 201502/25/2016 Inactive take with probiotics BID acyclovir 800 mg tablet RxNorm: 358426 1 Tablet(s) PO TID 01/2402/21/2016 Inactive Zithromax Z-Dylan 250 mg tablet RxNorm: 166751 1 Tablet(s) PO UD 01/19/2016 01/24/2016 Inactive z pack Flonase Allergy Relief 50 mcg/actuation nasal spray, suspension RxNorm: 3141170 USE ONE SPRAY(S) IN EACH NOSTRIL TWICE DAILY 12/28/2015 02/25/2016 Inactive Kenalog 40 mg/mL suspension for injection RxNorm: 6764701 Milliliter(s) Inj 12/18/2015 12/18/2015 Inactive Keflex 500 mg capsule RxNorm: 185483 1 Capsule(s) PO TID 201512/24/2015 Inactive Zithromax Z-Dylan 250 mg tablet RxNorm: 863757 1 Tablet(s) PO UD 12/09/2015 12/23/2015 Inactive z pack meclizine 25 mg tablet RxNorm: 773860 1 Tablet(s) PO TID as needed 12/09/2015 12/08/2015 Inactive meclizine 25 mg tablet RxNorm: 210905 1 Tablet(s) PO TID as needed 12/09/2015 02/26/2016 Inactive Keflex 500 mg capsule RxNorm: 512111 1 Capsule(s) PO TID 201511/22/2015 Inactive Cipro 500 mg tablet RxNorm: 755563 1 Tablet(s) PO BID 201511/13/2015 Inactive Keflex 500 mg capsule RxNorm: 248529 1 Capsule(s) PO TID 201510/30/2015 Inactive Xanax 0.25 mg tablet RxNorm: 498760 1 Tablet(s) PO TID as needed anxiety 09/18/2015 11/13/2015 Inactive Keflex 500 mg capsule RxNorm: 713083 1 Capsule(s) PO TID 201508/19/2015 Inactive losartan 50 mg tablet RxNorm: 445198 1 Tablet(s) PO daily 201507/07/2015 Inactive Pepcid 20 mg tablet RxNorm: 841012 1 Tablet(s) PO BID 201507/07/2015 Inactive Pepcid 20 mg tablet RxNorm: 596669 1 Tablet(s) PO BID 201501/31/2016 Inactive losartan 50 mg tablet RxNorm: 600775 1 Tablet(s) PO daily 201501/31/2016 Inactive prednisone 20 mg tablet RxNorm: 593155 2 Tablet(s) PO daily 06/22/2015 Inactive prednisone 20 mg tablet RxNorm: 022628 2 Tablet(s) PO daily 12/23/2015 Inactive Diflucan 100 mg tablet RxNorm: 939189 TAKE ONE TABLET BY MOUTH ONCE DAILY 06/12/2015 12/23/2015 Inactive Zithromax Z-Dylan 250 mg tablet RxNorm: 155462 1 Tablet(s) PO UD 06/05/2015 07/06/2015 Inactive z pack amlodipine 5 mg tablet RxNorm: 338266 1 Tablet(s) PO daily 03/29/2016 Inactive Zetia 10 mg tablet RxNorm: 626347 1 Tablet(s) PO daily 201506/14/2015 Inactive valsartan 160 mg tablet RxNorm: 635453 1 Tablet(s) PO daily 07/07/2015 Inactive Lipitor 10 mg tablet RxNorm: 252731 1 Tablet(s) PO QHS 201505/18/2015 Inactive Lipitor 10 mg tablet RxNorm: 739887 1 Tablet(s) PO QHS 201504/27/2015 Inactive Zithromax 250 mg tablet RxNorm: 431668 Tablet(s) PO UD 201504/28/2015 Inactive Keflex 500 mg capsule RxNorm: 915193 1 Capsule(s) PO TID 201503/22/2015 Inactive Keflex 500 mg capsule RxNorm: 188966 1 Capsule(s) PO TID 201504/01/2015 Inactive Xanax 0.25 mg tablet RxNorm: 386416 1 Tablet(s) PO TID as needed anxiety 03/12/2015 07/04/2016 Inactive carvedilol 25 mg tablet RxNorm: 299709 1 Tablet(s) PO BID 03/1201/31/2016 Inactive amlodipine 5 mg tablet RxNorm: 622976 1 Tablet(s) PO BID 201505/18/2015 Inactive Diflucan 100 mg tablet RxNorm: 493825 1 Tablet(s) PO daily 03/21/2015 Inactive Diflucan 100 mg tablet RxNorm: 649884 1 Tablet(s) PO daily 02/14/2015 Inactive Diflucan 100 mg tablet RxNorm: 781355 1 Tablet(s) PO daily 06/201401/05/2015 Inactive Diflucan 100 mg tablet RxNorm: 059131 1 Tablet(s) PO daily 06/201412/31/2014 Inactive nystatin 100,000 unit/mL oral suspension RxNorm: 298185 5 Milliliter(s) PO QID 12/24/2014 06/14/2015 Inactive nystatin 100,000 unit/mL oral suspension RxNorm: 287500 5 Milliliter(s) PO QID 12/24/2014 12/23/2014 Inactive Zithromax 250 mg tablet RxNorm: 017398 1 Tablet(s) PO daily 12/19/2014 Inactive Zithromax 250 mg tablet RxNorm: 281553 1 Tablet(s) PO daily 12/14/2014 Inactive Flonase Allergy Relief 50 mcg/actuation nasal spray, suspension RxNorm: 1 [place] NASAL BID 12/11/2014 12/10/2014 Inactive Flonase Allergy Relief 50 mcg/actuation nasal spray, suspension RxNorm: 1789956 1 [place] NASAL BID 12/11/20142015 Inactive amlodipine 5 mg tablet RxNorm: 529924 2 Tablet(s) PO daily 11/13/2014 Inactive amlodipine 5 mg tablet RxNorm: 862997 2 Tablet(s) PO daily 03/11/2015 Inactive Lotrisone 1 %-0.05 % topical cream RxNorm: 169814 1 TOP BID until healed 10/17/2014 10/30/2014 Inactive Lotrisone 1 %-0.05 % topical cream RxNorm: 021364 1 TOP BID until healed 10/16/2014 10/16/2014 Inactive Lotrisone 1 %-0.05 % topical cream RxNorm: 256276 1 TOP BID until healed 10/06/2014 10/15/2014 Inactive Keflex 500 mg capsule RxNorm: 947693 1 Capsule(s) PO TID 201408/11/2014 Inactive Keflex 500 mg capsule RxNorm: 851343 1 Capsule(s) PO TID 201408/18/2014 Inactive clotrimazole 1 % topical solution RxNorm: 074772 1 Drop(s) TOP BID No Start Date Active Vitamin D3 5,000 unit tablet RxNorm: 256182 1 Tablet(s) PO daily No Start Date Active guaifenesin 400 mg tablet RxNorm: 161237 1 Tablet(s) PO BID as needed No Start Date 08/03/2016 Inactive Lotrisone 1 %-0.05 % topical cream RxNorm: 122131 1 TOP BID until healed No Start Date 10/05/2014 Inactive lisinopril 40 mg tablet RxNorm: 305839 1 Tablet(s) PO daily No Start Date 05/18/2015 Inactive amlodipine 5 mg tablet RxNorm: 619904 1 Tablet(s) PO daily No Start Date 11/13/2014 Inactive indapamide 1.25 mg tablet RxNorm: 373657 1 Tablet(s) PO daily No Start Date 01/31/2016 Inactive aspirin 81 mg tablet RxNorm: 647591 1 Tablet(s) PO daily No Start Date 02/07/2017 Inactive Medication Administered Medication Codes Instructions Start Date Status Kenalog 40 mg/mL suspension for injection RxNorm: 6600952 1Milliliter 07/28/2017 No longer Active Kenalog 40 mg/mL suspension for injection RxNorm: 6369242 Milliliter 12/18/2015 No longer Active Immunizations Vaccine [...] hypertension ICD-10: I10 ICD-9: 401.1 03/30/2018 Other allergic rhinitis ICD-10: J30.89 ICD-9: 477.8 02/06/2018 Other acute sinusitis ICD-10: J01.80 ICD-9: 461.8 02/06/2018 Encounter for screening mammogram for malignant [...] mouth, unspecified ICD-10: R68.2 ICD-9: 527.7 06/15/2015 Mammographic microcalcification found on diagnostic imaging of breast ICD-10: R92.0 ICD-9: 793.81 05/19/2015 Edema, unspecified ICD-10: R60.9 ICD-9: 782.3 05/19/2015 Acute nasopharyngitis [common cold] ICD-10: J00 ICD-9: 460 04/24/2015 Localized edema ICD-10: R60.0 ICD-9: 782.3 04/24/2015 Abscess of liver ICD-10: K75.0 ICD-9: [...] 30.8 pg 04/11/2018 Cbc With Differential Ord2 [place]% 13.0 % 04/11/2018 Cbc With Differential Ord2 [...] 3.09 K/ul 04/11/2018 Cbc With Differential Ord2 [place] ABS# 1.2 K/ul 04/11/2018 Cbc With Differential Ord2 Eos ABS# 0.2 K/ul 04/11/2018 Cbc With Differential Ord2 Baso ABS# 0.1 K/ul 04/11/2018 Tsh Ord6 TSH (3rd IS) 2.85 uIU/mL 04/11/2018 %Hba1C Tcx821 % HbA1c 68141-6 7.1 % 04/11/2018 %Hba1C Nsn684 Gluc Ave 157 mg/dL 04/11/2018 Lipid Ord30 CHOL 150 mg/dL 04/11/2018 Lipid Ord30 HDL 38.0 mg/dl 04/11/2018 Lipid Ord30 TRIG 203 mg/dL 04/11/2018 Lipid Ord30 LDL 71 mg/dL 04/11/2018 Lipid Ord30 C/HDL 3.9 Ratio 04/11/2018 Vitamin D 25 Oh Ons4390 VITAMIN D, 25 HYDROXY 48.86 ng/mL Comp Metabolic Vvs332 NA 138 mEq/L 04/11/2018 Comp Metabolic Gwt586 K 4.4 mEq/L 04/11/2018 Comp Metabolic Rgg022 CL 101 mEq/L 04/11/2018 Comp Metabolic Vlh514 CO2 29.0 mEq/L 04/11/2018 Comp Metabolic Agr875 ANION GAP 12 04/11/2018 Comp Metabolic Lvl895 GLUCOSE 120 mg/dL 04/11/2018 Comp Metabolic Ohx922 Creat 1.2 mg/dL 04/11/2018 Comp Metabolic Fde691 eGFR 47 ml/min/1.73m2 04/11/2018 Comp Metabolic Gxc744 BUN 23 mg/dL 04/11/2018 Comp Metabolic Ikc272 B/C Ratio 19.7 Ratio 04/11/2018 Comp Metabolic Teq051 CALCIUM 10.3 mg/dL 04/11/2018 Comp Metabolic Ecg809 ALK PHOS 40 U/L 04/11/2018 Comp Metabolic Ryi795 AST(SGOT) 15 U/L 04/11/2018 Comp Metabolic Jtf690 ALT(SGPT) 9 U/L 04/11/2018 Comp Metabolic Kzk539 BILI T 1.0 mg/dL 04/11/2018 Comp Metabolic Twk239 ALBUMIN 4.3 g/dL 04/11/2018 Comp Metabolic Jxx460 TPRO 6.8 g/dL 04/11/2018 Comp Metabolic Bbq752 GLOB 2.5 g/dL 04/11/2018 Comp Metabolic Rrt334 A/G Ratio 1.7 Ratio 04/11/2018 Comp Metabolic Vbf283 Osmo 281 mOsmo 04/11/2018 %Hba1C Yhm506 % HbA1c 46904-9 6.5 % 12/01/2016 %Hba1C Gnv758 Gluc Ave 140 mg/dL 12/01/2016 Lipid Ord30 [...] 31.3 pg 04/12/2016 Cbc With Differential Ord2 [place]% 13.3 % 04/12/2016 Cbc With Differential Ord2 [...] 2.85 K/ul 04/12/2016 Cbc With Differential Ord2 [place] ABS# 1.1 K/ul 04/12/2016 Cbc With Differential Ord2 Eos ABS# 0.1 K/ul 04/12/2016 Cbc With Differential Ord2 Baso ABS# 0.0 K/ul 04/12/2016 Comp Metabolic Hbo900 NA 129 mEq/L 04/12/2016 Comp Metabolic Hhy844 K 4.0 mEq/L 04/12/2016 Comp Metabolic Xhe018 CL 93 mEq/L 04/12/2016 Comp Metabolic Aen325 CO2 29.0 mEq/L 04/12/2016 Comp Metabolic Pcj058 ANION GAP 11 04/12/2016 Comp Metabolic Lok458 GLUCOSE 100 mg/dL 04/12/2016 Comp Metabolic Cos198 Creat 1.0 mg/dL 04/12/2016 Comp Metabolic Xvb750 eGFR 55 ml/min/1.73m2 04/12/2016 Comp Metabolic Xvm722 BUN 19 mg/dL 04/12/2016 Comp Metabolic Fqa317 B/C Ratio 18.8 Ratio 04/12/2016 Comp Metabolic Uzi110 CALCIUM 9.3 mg/dL 04/12/2016 Comp Metabolic Dzi198 ALK PHOS 38 U/L 04/12/2016 Comp Metabolic Jqe935 AST(SGOT) 17 U/L 04/12/2016 Comp Metabolic Wfj978 ALT(SGPT) 11 U/L 04/12/2016 Comp Metabolic Uyl553 BILI T 1.0 mg/dL 04/12/2016 Comp Metabolic Fin305 ALBUMIN 4.2 g/dL 04/12/2016 Comp Metabolic Ujw845 TPRO 6.6 g/dL 04/12/2016 Comp Metabolic Vws902 GLOB 2.4 g/dL 04/12/2016 Comp Metabolic Bfe661 A/G Ratio 1.8 Ratio 04/12/2016 Comp Metabolic Ttk552 Osmo 261 mOsmo 04/12/2016 Lipid Ord30 CHOL 265 mg/dL 04/12/2016 Lipid Ord30 HDL 42.0 mg/dl 04/12/2016 Lipid Ord30 TRIG 246 mg/dL 04/12/2016 Lipid Ord30 LDL 174 mg/dL 04/12/2016 Lipid Ord30 C/HDL 6.3 Ratio 04/12/2016 Tsh Ord6 hTSH II 2.49 uIU/mL 04/12/2016 Tsh Ord6 hTSH II 1.83 uIU/mL 06/12/2015 Comp Metabolic Yfb704 NA 137 mEq/L 06/12/2015 Comp Metabolic Qkw301 K 4.4 mEq/L 06/12/2015 Comp Metabolic Bci509 CL 103 mEq/L 06/12/2015 Comp Metabolic Roe893 CO2 27.0 mEq/L 06/12/2015 Comp Metabolic Usb430 ANION GAP 11 06/12/2015 Comp Metabolic Fkd862 GLUCOSE 87 mg/dL 06/12/2015 Comp Metabolic Htt515 Creat 1.3 mg/dL 06/12/2015 Comp Metabolic Qjb458 eGFR 43 ml/min/1.73m2 06/12/2015 Comp Metabolic Zhh511 BUN 32 mg/dL 06/12/2015 Comp Metabolic Eny659 B/C Ratio 25.4 Ratio 06/12/2015 Comp Metabolic Mnm557 CALCIUM 9.5 mg/dL 06/12/2015 Comp Metabolic Wqw901 ALK PHOS 36 U/L 06/12/2015 Comp Metabolic Yun733 AST(SGOT) 16 U/L 06/12/2015 Comp Metabolic Xzi677 ALT(SGPT) 17 U/L 06/12/2015 Comp Metabolic Dsg002 BILI T 1.0 mg/dL 06/12/2015 Comp Metabolic Ija182 ALBUMIN 4.1 g/dL 06/12/2015 Comp Metabolic Kad815 TPRO 6.5 g/dL 06/12/2015 Comp Metabolic Gkr693 GLOB 2.5 g/dL 06/12/2015 Comp Metabolic Cco806 A/G Ratio 1.7 Ratio 06/12/2015 Comp Metabolic Qic743 Osmo 280 mOsmo 06/12/2015 Lipid Ord30 CHOL [...] 30.6 pg 06/12/2015 Cbc With Differential Ord2 [place]% 11.0 % 06/12/2015 Cbc With Differential Ord2 [...] 1.96 K/ul 06/12/2015 Cbc With Differential Ord2 [place] ABS# 0.9 K/ul 06/12/2015 Cbc With Differential [...] 30.3 pg 03/12/2015 Cbc With Differential Ord2 [place]% 10.7 % 03/12/2015 Cbc With Differential Ord2 [...] 2.00 K/ul 03/12/2015 Cbc With Differential Ord2 [place] ABS# 1.0 K/ul 03/12/2015 Cbc With Differential Ord2 Eos ABS# 0.1 K/ul 03/12/2015 Cbc With Differential Ord2 Baso ABS# 0.0 K/ul 03/12/2015 Cbc With Differential Ord2 New Analyzer Notice Please note new ref ranges starting 03-11-2015 due to implemntation of new five part differential hematolgy analyzer. 03/12/2015 Comp Metabolic Cil131 NA 139 mEq/L 03/12/2015 Comp Metabolic Oii829 K 4.2 mEq/L 03/12/2015 Comp Metabolic Fmq172 CL 101 mEq/L 03/12/2015 Comp Metabolic Gca361 CO2 28.0 mEq/L 03/12/2015 Comp Metabolic Qka517 ANION GAP 14 03/12/2015 Comp Metabolic Cyz022 GLUCOSE 78 mg/dL 03/12/2015 Comp Metabolic Vis643 Creat 1.1 mg/dL 03/12/2015 Comp Metabolic Utz248 eGFR 51 ml/min/1.73m2 03/12/2015 Comp Metabolic Blx557 BUN 17 mg/dL 03/12/2015 Comp Metabolic Kbl293 B/C Ratio 15.6 Ratio 03/12/2015 Comp Metabolic Kwa232 CALCIUM 9.4 mg/dL 03/12/2015 Comp Metabolic Rjb253 ALK PHOS 46 U/L 03/12/2015 Comp Metabolic Vrn361 AST(SGOT) 16 U/L 03/12/2015 Comp Metabolic Npv258 ALT(SGPT) 12 U/L 03/12/2015 Comp Metabolic Dza970 BILI T 0.8 mg/dL 03/12/2015 Comp Metabolic Zez717 ALBUMIN 4.1 g/dL 03/12/2015 Comp Metabolic Beh437 TPRO 6.6 g/dL 03/12/2015 Comp Metabolic Osx991 GLOB 2.6 g/dL 03/12/2015 Comp Metabolic Tzd017 A/G Ratio 1.6 Ratio 03/12/2015 Comp Metabolic Uuc561 Osmo 278 mOsmo 03/12/2015 Lipid Ord30 CHOL [...] hTSH II 3.15 uIU/mL 12/01/2014 Comp Metabolic Ddk529 NA 132 mEq/L 12/01/2014 Comp Metabolic Akf776 K 4.4 mEq/L 12/01/2014 Comp Metabolic Bhj356 CL 99 mEq/L 12/01/2014 Comp Metabolic Gom763 CO2 27.0 mEq/L 12/01/2014 Comp Metabolic Dft749 ANION GAP 10 12/01/2014 Comp Metabolic Yqz493 GLUCOSE 86 mg/dL 12/01/2014 Comp Metabolic Xkn267 Creat 1.2 mg/dL 12/01/2014 Comp Metabolic Ttg718 eGFR 46 ml/min/1.73m2 12/01/2014 Comp Metabolic Qyg742 BUN 32 mg/dL 12/01/2014 Comp Metabolic Mbv314 B/C Ratio 27.1 Ratio 12/01/2014 Comp Metabolic Hgo890 CALCIUM 9.4 mg/dL 12/01/2014 Comp Metabolic Hwo366 ALK PHOS 35 U/L 12/01/2014 Comp Metabolic Ygc502 AST(SGOT) 14 U/L 12/01/2014 Comp Metabolic Eof377 ALT(SGPT) 13 U/L 12/01/2014 Comp Metabolic Uqh919 BILI T 0.8 mg/dL 12/01/2014 Comp Metabolic Coo768 ALBUMIN 4.0 g/dL 12/01/2014 Comp Metabolic Ihz014 TPRO 6.8 g/dL 12/01/2014 Comp Metabolic Odk541 GLOB 2.8 g/dL 12/01/2014 Comp Metabolic Uvi044 A/G Ratio 1.4 Ratio 12/01/2014 Comp Metabolic Bmt969 Osmo 271 mOsmo 12/01/2014 Review of Systems [...] FLU VACC PRSV FREE INC ANTIG CPT-4: 52366 11/13/2017 ADMIN INFLUENZA VIRUS VAC CPT-4: G0008 11/13/2017 TRIAMCINOLONE ACET INJ NOS CPT-4: J3301 07/28/2017 PPPS, SUBSEQ VISIT CPT -4: G0439 02/08/2017 URINALYSIS NONAUTO W/O SCOPE CPT-4: 36990 08/15/2016 PPPS, SUBSEQ VISIT CPT -4: G0439 02/01/2016 TRIAMCINOLONE ACET INJ NOS CPT-4: J3301 12/18/2015 ADMIN INFLUENZA VIRUS VAC CPT-4: G0008 11/26/2015 FLU VACC 4 GISELA 3 YRS PLUS IM Formatting Model/CDA Sections, Assigned to/Malina Mazariegos SNOMED CT: 73353026 CPT-4: 97557Fmpdfuh 11/26/2015 URINALYSIS NONAUTO W/O SCOPE CPT-4: 73933 11/20/2015 URINALYSIS NONAUTO W/O SCOPE CPT-4: 31233 11/13/2015 IMMUNIZATION ADMIN CPT -4: 22578 12/01/2014 FLU VACC 4 GISELA 3 YRS PLUS IM Formatting Model/CDA Sections, Assigned to/Malina Mazariegos SNOMED CT: 93078413 CPT-4: 92382Uwedmzf 12/01/2014 Vital Signs Date Vital 04/11/2018 Blood Pressure 1: 142/56 Code : 8480-6 BMI: 25.1 Code : 57659-8 Heart Rate 1 : 68 bpm Height: 5'1" SpO2: 96% Weight: 133 lbs 02/06/2018 Blood Pressure 1: 142/60 Code : 8480-6 BMI: 25.3 Code : 45135-5 Heart Rate 1 : 68 bpm Height: 5'1" SpO2: 99% Temperature: 37.0 (C) / 98.6 (F) Weight: 134 lbs 12/08/2017 Blood Pressure 1: 140/52 Code : 8480-6 BMI: 25.5 Code : 92017-3 Heart Rate 1 : 77 bpm Height: 5'1" SpO2: 96% Temperature: 36.6 (C) / 97.9 (F) Weight: 135 lbs 11/13/2017 Blood Pressure 1: 134/54 Code : 8480-6 BMI: 24.8 Code : 64906-5 Heart Rate 1 : 73 bpm Height: 5'1" SpO2: 98% Weight: 131 lbs 08/29/2017 Blood Pressure 1: 162/64 Code : 8480-6 BMI: 24.9 Code : 10841-7 Heart Rate 1 : 61 bpm Height: 5'1" SpO2: 96% Weight: 132 lbs 07/28/2017 Blood Pressure 1: 148/62 Code : 8480-6 BMI: 25.1 Code : 31145-5 Heart Rate 1 : 67 bpm Height: 5'1" SpO2: 99% Temperature: 36.4 (C) / 97.5 (F) Weight: 133 lbs 06/20/2017 Blood Pressure 1: 140/52 Code : 8480-6 BMI: 25.3 Code : 23451-0 Heart Rate 1 : 64 bpm Height: 5'1" SpO2: 98% Weight: 134 lbs 05/26/2017 Blood Pressure 1: 140/56 Code : 8480-6 BMI: 25.7 Code : 20833-2 Heart Rate 1 : 74 bpm Height: 5'1" SpO2: 95% Weight: 136 lbs 04/24/2017 Blood Pressure 1: 140/68 Code : 8480-6 BMI: 24.6 Code : 28504-7 Heart Rate 1 : 67 bpm Height: 5'1" SpO2: 97% Weight: 130 lbs 02/08/2017 Blood Pressure 1: 134/76 Code : 8480-6 BMI: 24.9 Code : 69926-8 Heart Rate 1 : 67 bpm Height: 5'1" SpO2: 98% Waist Measure (cm): 15813 cm Weight: 132 lbs 12/22/2016 Blood Pressure 1: 156/80 Code : 8480-6 BMI: 24.2 Code : 42882-9 Heart Rate 1 : 65 bpm Height: 5'1" SpO2: 98% Weight: 128 lbs 12/16/2016 Blood Pressure 1: 138/62 Code : 8480-6 BMI: 23.8 Code : 85696-7 Heart Rate 1 : 63 bpm Height: 5'1" SpO2: 98% Weight: 126 lbs 08/15/2016 Blood Pressure 1: 130/60 Code : 8480-6 BMI: 25.3 Code : 21748-1 Heart Rate 1 : 72 bpm Height: 5'1" SpO2: 95% Weight: 134 lbs 08/02/2016 Blood Pressure 1: 160/62 Code : 8480-6 BMI: 25.3 Code : 21191-0 Heart Rate 1 : 67 bpm Height: 5'1" SpO2: 97% Weight: 134 lbs 07/21/2016 Blood Pressure 1: 148/66 Code : 8480-6 BMI: 25.9 Code : 40041-1 Heart Rate 1 : 71 bpm Height: 5'1" SpO2: 97% Temperature: 36.8 (C) / 98.2 (F) Weight: 137 lbs 07/01/2016 Blood Pressure 1: 142/72 Code : 8480-6 BMI: 26.5 Code : 75500-1 Heart Rate 1 : 68 bpm Height: 5'1" SpO2: 94% Weight: 140 lbs 05/16/2016 Blood Pressure 1: 162/76 Code : 8480-6 Blood Pressure 1: 138/68 Code: 8480-6 BMI: 25.7 Code: 56246-2 Heart Rate 1: 58 bpm Height: 5'1" SpO2: 98% Weight: 136 lbs 04/06/2016 Blood Pressure 1: 162/72 Code : 8480-6 Blood Pressure 1: 138/74 Code: 8480-6 BMI: 25.7 Code: 07180-1 Heart Rate 1: 75 bpm Height: 5'1" SpO2: 97% Weight: 136 lbs 03/30/2016 Blood Pressure 1: 188/80 Code : 8480-6 BMI: 26.3 Code : 62892-5 Heart Rate 1 : 75 bpm Height: 5'1" SpO2: 98% Weight: 139 lbs 02/01/2016 Blood Pressure 1: 140/72 Code : 8480-6 BMI: 25.3 Code : 16982-9 Heart Rate 1 : 65 bpm Height: 5'1" SpO2: 97% Waist Measure (cm): 84 cm Weight: 134 lbs 01/25/2016 Blood Pressure 1: 140/74 Code : 8480-6 BMI: 25.1 Code : 57592-8 Heart Rate 1 : 66 bpm Height: 5'1" SpO2: 98% Weight: 133 lbs 12/24/2015 Blood Pressure 1: 142/66 Code : 8480-6 BMI: 24.9 Code : 72076-2 Heart Rate 1 : 54 bpm Height: 5'1" SpO2: 97% Weight: 132 lbs 12/18/2015 Blood Pressure 1: 152/62 Code : 8480-6 BMI: 25.5 Code : 88249-0 Heart Rate 1 : 66 bpm Height: 5'1" SpO2: 96% Weight: 135 lbs 12/11/2015 Blood Pressure 1: 136/54 Code : 8480-6 Heart Rate 1: 72 bpm SpO2: 98% Weight: 137 lbs 11/26/2015 Blood Pressure 1: 142/70 Code : 8480-6 BMI: 25.3 Code : 17324-0 Heart Rate 1 : 64 bpm Height: 5'1" SpO2: 97% Weight: 134 lbs 11/20/2015 Blood Pressure 1: 154/70 Code : 8480-6 Heart Rate 1: 65 bpm SpO2: 98% 10/23/2015 Blood Pressure 1: 138/62 Code : 8480-6 Heart Rate 1: 55 bpm SpO2: 98% 10/21/2015 Blood Pressure 1: 142/68 Code : 8480-6 BMI: 25.7 Code : 75079-7 Heart Rate 1 : 73 bpm Height: 5'1" SpO2: 98% Weight: 136 lbs 07/15/2015 Blood Pressure 1: 130/60 Code : 8480-6 BMI: 26.6 Code : 18983-2 Heart Rate 1 : 70 bpm Height: 5'1" SpO2: 97% Weight: 141 lbs 06/15/2015 Blood Pressure 1: 118/64 Code : 8480-6 BMI: 24.9 Code : 10221-8 Heart Rate 1 : 66 bpm Height: 5'1" SpO2: 99% Weight: 132 lbs 06/05/2015 Blood Pressure 1: 142/60 Code : 8480-6 Blood Pressure 1: 135/58 Code: 8480-6 Heart Rate 1: 64 bpm SpO2: 99% 05/19/2015 Blood Pressure 1: 146/60 Code : 8480-6 BMI: 27.1 Code : 04778-8 Heart Rate 1 : 66 bpm Height: 5'1" SpO2: 97% Weight: 143 lbs 8 oz 04/24/2015 Blood Pressure 1: 148/58 Code : 8480-6 BMI: 25.9 Code : 43121-7 Heart Rate 1 : 61 bpm Height: 5'1" SpO2: 98% Weight: 137 lbs 03/12/2015 Blood Pressure 1: 140/72 Code : 8480-6 BMI: 25.1 Code : 91565-0 Heart Rate 1 : 68 bpm Height: 5'1" SpO2: 98% Weight: 133 lbs 01/12/2015 Blood Pressure 1: 146/60 Code : 8480-6 BMI: 25.7 Code : 65015-3 Heart Rate 1 : 48 bpm Height: 5'1" SpO2: 97% Weight: 136 lbs 12/11/2014 Blood Pressure 1: 144/56 Code : 8480-6 Blood Pressure 1: 125/65 Code: 8480-6 BMI: 25.1 Code: 27432-3 Heart Rate 1: 56 bpm Height: 5'1" SpO2: 96% Weight: 133 lbs 12/01/2014 Blood Pressure 1: 136/60 Code : 8480-6 Heart Rate 1: 56 bpm SpO2: 96% Weight: 131 lbs 5 oz 08/14/2014 Blood Pressure 1: 132/72 Code : 8480-6 BMI: 25.5 Code : 32660-8 Heart Rate 1 : 73 bpm Height: [...] data Encounters Encounter Performer Location Codes Date ( 52708 EST. PATIENT, LEVEL IV Diagnosis: Essential (primary) hypertension[ICD10: I10] Diagnosis: Other abnormal glucose[ICD10: R73.09] Diagnosis: Mixed hyperlipidemia[ICD10: E78.2] Diagnosis: Vitamin D deficiency, unspecified[ICD10: E55.9] Berenice Cohen MD, [facility] CPT-4: 98869 04/11/2018 58111 EST. PATIENT, LEVEL IV Diagnosis: Other acute sinusitis[ICD10: J01.80] Diagnosis: Other allergic rhinitis[ICD10: J30.89] Evelyn Cohen MD, [facility] CPT-4: 73684 02/06/2018 [id number] EST. PATIENT, LEVEL III Diagnosis: Other allergic rhinitis[ICD10: J30.89] Diagnosis: Other acute sinusitis[ICD10: J01.80] Evelyn Cohen MD, [facility] CPT-4: 30226 12/08/2017 ([id number]) 98552 EST. PATIENT, LEVEL IV Diagnosis: Essential (primary) hypertension[ICD10: I10] Diagnosis: Chronic maxillary sinusitis[ICD10: J32.0] Diagnosis: Mixed hyperlipidemia[ICD10: E78.2] Diagnosis: Other abnormal glucose[ICD10: R73.09] Berenice Cohen MD, [facility] CPT-4: 64333 11/13/2017 ([id number]) 16372 EST. PATIENT, LEVEL III Diagnosis: Tinea corporis[ICD10: B35.4] Diagnosis: Essential (primary) hypertension[ICD10: I10] Doris Cohen MD, [facility] CPT-4: 16986 08/29/2017 ([id number]) 45101 EST. PATIENT, LEVEL III Diagnosis: Acute recurrent maxillary sinusitis[ICD10: J01.01] Diagnosis: Other allergic rhinitis[ICD10: J30.89] Doris Cohen MD, [facility] CPT-4: 18705 07/28/2017 63589 EST. PATIENT, LEVEL IV Diagnosis: Other acute sinusitis[ICD10: J01.80] Diagnosis: Other allergic rhinitis[ICD10: J30.89] Diagnosis: Otalgia, bilateral[ICD10: H92.03] Diagnosis: Pain in right knee[ICD10: M25.561] Diagnosis: Pain in left knee[ICD10: M25.562] Evelyn Cohen MD, [facility] CPT -4: 34698 06/20/2017 19670 EST. PATIENT, LEVEL IV Diagnosis: Other acute sinusitis[ICD10: J01.80] Diagnosis: Other allergic rhinitis[ICD10: J30.89] Diagnosis: Gastro-esophageal reflux disease without esophagitis[ICD10: K21.9] Evelyn Cohen MD, [facility] CPT-4: 90264 05/26/2017 37576 EST. PATIENT, LEVEL III Diagnosis: Essential (primary) hypertension[ICD10: I10] Evelyn Cohen MD, [facility] CPT-4: 84192 04/24/2017 ([id number]) 67155 EST. PATIENT, LEVEL IV Diagnosis: Essential (primary) hypertension[ICD10: I10] Diagnosis: Other abnormal glucose[ICD10: R73.09] Diagnosis: Mixed hyperlipidemia[ICD10: E78.2] Berenice Cohen MD, [facility] CPT-4: 69020 12/22/2016 40669 EST. PATIENT, LEVEL IV Diagnosis: Other acute sinusitis[ICD10: J01.80] Diagnosis: Other allergic rhinitis[ICD10: J30.89] Evelyn Cohen MD, [facility] CPT-4: 68568 12/16/2016 ([id number]) 28083 EST. PATIENT, LEVEL IV Diagnosis: Essential (primary) hypertension[ICD10: I10] Diagnosis: Mixed hyperlipidemia[ICD10: E78.2] Diagnosis: Dysuria[ICD10: R30.0] Berenice Cohen MD, [facility] CPT-4: 78865 08/15/2016 30714 EST. PATIENT, LEVEL III Diagnosis: Other acute sinusitis[ICD10: J01.80] Diagnosis: Other allergic rhinitis[ICD10: J30.89] Diagnosis: Otalgia, bilateral[ICD10: H92.03] Evelyn Cohen MD, [facility] CPT -4: 96301 08/02/2016 ([id number]) 24181 EST. PATIENT, LEVEL III Diagnosis: Acute recurrent maxillary sinusitis[ICD10: J01.01] Diagnosis: Otalgia, right ear[ICD10: H92.01] Doris Cohen MD, [facility] CPT-4: 18705 07/21/2016 11478 EST. PATIENT, LEVEL III Diagnosis: Dysuria[ICD10: R30.0] Diagnosis: Other allergic rhinitis[ICD10: J30.89] Evelyn Cohen MD, [facility] CPT-4: 79473 07/01/2016 ([id number]) 39132 EST. PATIENT, LEVEL IV Diagnosis: Essential (primary) hypertension[ICD10: I10] Diagnosis: Mixed hyperlipidemia[ICD10: E78.2] Berenice Cohen MD, [facility] CPT-4: 91904 05/16/2016 32294 EST. PATIENT, LEVEL III Diagnosis: Mixed hyperlipidemia[ICD10: E78.2] Diagnosis: Essential (primary) hypertension[ICD10: I10] Diagnosis: Laceration without foreign body of left hand, subsequent encounter[ ICD10: S61.412D] Evelyn Cohen MD, [facility] CPT-4: 63612 04/06/2016 ([id number]) 60854 EST. PATIENT, LEVEL III Diagnosis: Essential (primary) hypertension[ICD10: I10] Berenice Cohen MD, [facility] CPT-4: 32630 03/30/2016 ([id number]) 13208 EST. 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 CPT-4: 22231 01/25/2016 ([id number]) 76401 EST. PATIENT, LEVEL III Diagnosis: Essential (primary) hypertension[ICD10: I10] Berenice Cohen MD, [facility] CPT-4: 21289 12/24/2015 48001 EST. PATIENT, LEVEL III Diagnosis: Other acute sinusitis[ICD10: J01.80] Diagnosis: Other allergic rhinitis[ICD10: J30.89] Evelyn Cohen MD, [facility] CPT-4: 87331 12/18/2015 ([id number]) Miscellaneous no charge Diagnosis: Essential (primary) hypertension[ICD10: I10] Evelyn Cohen MD, [facility] CPT-4: 40395 12/11/2015 ([id number]) 41691 EST. PATIENT, LEVEL IV Diagnosis: Essential (primary) hypertension[ICD10: I10] Diagnosis: Other abnormal glucose[ICD10: R73.09] Diagnosis: Encounter for immunization[ICD10: Z23] Berenice Cohen MD, [facility] CPT-4: 40207 11/26/2015 ([id number]) Miscellaneous no charge Diagnosis: Bitten by dog, initial encounter[ICD10: W54.0XXA] Evelyn Cohen MD, [facility] CPT-4: 20226 10/29/2015 ([id number]) Miscellaneous no charge Diagnosis: Essential (primary) hypertension[ICD10: I10] Diagnosis: Bitten by dog, initial encounter[ICD10: W54.0XXA] Evelyn Cohen MD, [facility] CPT-4: 66235 10/23/2015 11087 EST. PATIENT, LEVEL III Diagnosis: Cellulitis of face[ICD10: L03.211] Diagnosis: Bitten by dog, initial encounter[ICD10: W54.0XXA] Evelyn Cohen MD, [facility] CPT-4: 89219 10/21/2015 ([id number]) Miscellaneous no charge Diagnosis: Essential (primary) hypertension[ICD10: I10] Evelyn Cohen MD, [facility] CPT-4: 46642 07/15/2015 ([id number]) 59031 EST. PATIENT, LEVEL IV Diagnosis: Essential (primary) hypertension[ICD10: I10] Diagnosis: Mixed hyperlipidemia[ICD10: E78.2] Diagnosis: Dry mouth, unspecified[ICD10: R68.2] Berenice Cohen MD, [facility] CPT-4: 51242 06/15/2015 ([id number]) Miscellaneous no charge Diagnosis: Essential (primary) hypertension[ICD10: I10] Doris Cohen MD, [facility] CPT-4: 44556 06/05/2015 ([id number]) 82394 EST. PATIENT, LEVEL IV Diagnosis: Mammographic microcalcification found on diagnostic imaging of breast [ICD10: R92.0] Diagnosis: Edema, unspecified[ICD10: R60.9] Diagnosis: Essential (primary) hypertension[ICD10: I10] Berenice Cohen MD, [facility] CPT-4: 64882 05/19/2015 72320 EST. PATIENT, LEVEL IV Diagnosis: Other acute sinusitis[ICD10: J01.80] Diagnosis: Acute nasopharyngitis [common cold][ICD10: J00] Diagnosis: Other allergic rhinitis[ICD10: J30.89] Diagnosis: Localized edema[ICD10: R60.0] Diagnosis: Mixed hyperlipidemia[ICD10: E78.2] Evelyn Cohen MD, [facility] CPT-4: 99597 04/24/2015 ([id number]) 71144 EST. PATIENT, LEVEL IV Diagnosis: Essential (primary) hypertension[ICD10: I10] Diagnosis: Abscess of liver[ICD10: K75.0] Diagnosis: Anemia, unspecified[ICD10: D64.9] Berenice Cohen MD, [facility] CPT-4: 37453 03/12/2015 03519 EST. PATIENT, LEVEL IV Diagnosis: Essential (primary) hypertension[ICD10: I10] Diagnosis: Candidal stomatitis[ICD10: B37.0] Diagnosis: Pain in unspecified knee[ICD10: M25.569] Diagnosis: Edema, unspecified[ICD10: R60.9] Evelyn Cohen MD, [facility] CPT- 4: 60438 01/12/2015 ([id number]) 57624 EST. PATIENT, LEVEL III Diagnosis: Pain in right foot[ICD10: M79.671] Berenice Cohen MD, [facility] CPT-4: 20517 12/11/2014 ([id number]) 96555 EST. PATIENT, LEVEL IV Diagnosis: Abscess of liver[ICD10: K75.0] Diagnosis: Hypo-osmolality and hyponatremia[ICD10: E87.1] Diagnosis: Essential (primary) hypertension[ICD10: I10] Diagnosis: VACCIN FOR INFLUENZA[ICD10: Z23] Berenice Cohen MD, [facility] CPT-4: 72007 12/01/2014 ([id number]) OFFICE VISIT, NEW - LEVEL 4 Diagnosis: ESSENTIAL HYPERTENSION[ICD9: 401.9] Diagnosis: Chronic maxillary sinusitis[ICD9: 473.0] [facility] CPT-4: 74194 08/14/2014 Plan of Care Planned Activity Notes [...] to medications. 04/11/2018 Appointment: Berenice Cohen WPtel: [facility]8 [facility] (15 min) Moderate 04/11/2018 Patient Education: Patient Medication Summary Completed 04/11/2018 Patient Education: Hypertension Completed 04/11/2018 Patient Education: Cholesterol Management Completed 04/11/2018 Patient Education: Patient Medication Summary Completed 03/30/2018 Care Plan: Comp Metabolic Pending 03/30/2018 Care Plan: Cbc With Differential Pending 03/30/2018 Care Plan: Tsh Pending 03/30/2018 Care Plan: Lipid Pending 03/30/2018 Appointment: [facility] ([facility] min) Moderate 03/28/2018 Appointment: Beren[facility] Cohen [facility]Ptel[facility] (15 min) Moderate 03/19/2018 Visit Plan: Sinusitis [...] allergy spray. 02/06/2018 Appointment: Evelyn West WPtel: [address] [place] [address] (15 min) Moderate 02/06/2018 Patient Education: Patient Medication Summary Completed 02/06/2018 Patient Education: Patient Medication Summary Completed 12/29/2017 Care Plan: %Hba1C [facility] : 68943-2 Pending 12/11/2017 Visit Plan: Sinusitis - Pt [...] allergy spray. 12/08/2017 Appointment: Evelyn West WPtel: [address] [place] [address] (15 min) Moderate 12/08/2017 Patient Education: Patient [...] shot today 11/13/2017 Appointment: Berenice Cohen WPtel: [facility] (15 min) Moderate 11/13/2017 Patient Education: Patient Medication Summary Completed 11/13/2017 Patient Education: Cholesterol Management Completed 11/13/2017 Visit Plan: Tinea-rx sent to patient's pharmacy and instructed on use-keep groin clean/dry -call if symptoms do not resolve or if any worse HTN-elevated today-monitor and home and call if continues to be elevated 08/29/2017 Appointment: Doris Sheffield WPtel: [facility] [place] [phone] (15 min) Moderate 08/29/2017 Patient Education: Patient [...] any worse 07/28/2017 Appointment: Doris Sheffield WPtel: [phone] [phone] (30 min) Complex 07/28/2017 Patient [...] improve. 06/20/2017 Appointment: Evelyn West WPtel: [phone] [facility] (15 min) Moderate 06/20/2017 Patient Education: [...] not improving. 05/26/2017 [facility]ment[phone] (15 min) Moderate 05/26/2017 Patient Education: Patient [...] concerns. 04/24/2017 Appointment: [phone] (30 min) Complex 04/24/2017 Patient Education: Patient [...] surrogate. 02/08/2017 Appointment: [phone] [facility] [facility] - Annual Wellness Visit 02/08/2017 Patient Education: [...] vaccine today 12/22/2016 Appointment: Berenice Cohen WPtel: [phone] [facility] (15 min) Moderate 12/22/2016 Patient Education: Patient [...] allergy spray. 12/16/2016 Appointment: Evelyn West WPtel: [phone] [facility] (30 min) Complex 12/16/2016 Patient Education: Patient Medication Summary Completed 12/16/2016 Appointment: Berenice Cohen WPtel: [phone] [facility] (15 min) Moderate 11/15/2016 Visit Plan: Hypertension [...] on carbohydrates. 08/15/2016 Appointment: Berenice Cohen WPtel: [phone] [facility] (15 min) Moderate 08/15/2016 Patient Education: Patient Medication Summary Completed 08/15/2016 Appointment: [phone] (15 min) Moderate 08/05/2016 Visit Plan: Allergies [...] show improvement. 08/02/2016 Appointment: [facility] West [phone] [facility] (30 min) Complex 08/02/2016 Patient Education: Patient [...] and to have ear flushed 07/21/2016 Appointment: SheffieldLyleie [facility]el[phone] [phone] (15 min) Moderate 07/21/2016 Patient Education: Patient [...] nightly. 05/16/2016 Appointment: [phone] (15 min) Moderate 05/16/2016 Patient Education: Patient [...] or concerns. 04/06/2016 Appointment: Evelyn West WPtel: [facility] (10 min) Simple 04/06/2016 Patient [...] twice daily. 03/30/2016 Appointment: Berenice Cohen WPtel: [facility]1 [facility] [place] (15 min) Moderate 03/30/2016 Patient Education: Patient Medication Summary Completed 03/30/2016 Appointment: Berenice Cohen WPtel: [facility]4 [facility] (15 min) Moderate 03/24/2016 Visit Plan: Medicare [...] care surrogate. 02/01/2016 Appointment: Evelyn West WPtel: [facility]6 [facility] [facility] - Annual Wellness Visit 02/01/2016 Patient Education: Patient Medication Summary Completed 02/01/2016 Visit Plan: Apthous ulcer - rx for acyclovir 800mg tid x7 days Sample of Voltaren gel to use on knees tid prn 01/25/2016 Appointment: Berenice Cohen WPtel: [facility]6 [facility] (15 min) Moderate 01/25/2016 Patient Education: Patient Medication Summary Completed 01/25/2016 Visit Plan: Hypertension - well controlled - continue with current medications, continue with no added salt diet. Pt has been encouraged to exercise daily. The pt has been advised to call the office if there are any acute concerns about change in blood pressure readings at home. 12/24/2015 Appointment: Berenice Cohen WPtel: [facility] (15 min) Moderate 12/24/2015 Patient Education: Patient [...] improvement. 12/18/2015 Appointment: Doris Sheffield WPtel: [phone] [phone] (15 min) Moderate 12/18/2015 Patient [...] - 11/26/2015 Appointment: Berenice Cohen WPtel: [phone] [facility] (15 min) Moderate 11/26/2015 Patient Education: Patient [...] pain. 10/21/2015 Appointment: Doris Sheffield WPtel: [phone] [phone] [place] (15 min) Moderate 10/21/2015 Patient [...] mouth spray 06/15/2015 Appointment: Berenice Cohen WPtel: [phone] [facility] (15 min) Moderate 06/15/2015 Patient Education: Patient Medication Summary Completed 06/15/2015 Patient Education: Patient Medication Summary Completed 06/12/2015 Appointment: [phone] (15 min) Moderate 06/11/2015 Appointment: Nurse Visit [...] the day 03/12/2015 Appointment: Berenice Cohen WPtel: [address] [place], [place] [address] (15 min) Moderate 03/12/2015 Patient Education: Patient [...] appointment with then soon. Pt to try Jasper Bowerston rub on the knees to help reduce [...] sore 12/11/2014 Appointment: Berenice Cohen WPtel: [address] [place], [place] [phone] (15 min) Moderate 12/11/2014 Patient [...] not improving. 12/01/2014 Appointment: Berenice Cohen WPtel: [facility]8 [facility] (15 min) Moderate 12/01/2014 Patient Education: Patient Medication Summary Completed 12/01/2014 Patient Education: Hypertension Completed 12/01/2014 Appointment: Berenice Cohen WPtel: [facility]3 [facility] (15 min) Moderate 09/15/2014 Visit Plan: Hypertension [...] not improve. 08/14/2014 Appointment: Berenice Cohen WPtel: [facility] [place] ([place] New Patient 08/14/2014 Patient Education: Patient Medication Summary Completed 08/14/2014 Patient Education: Hypertension Completed 08/14/2014 Instructions Comment change the amlodipine to 5mg [...] foot where it is sore [employer] key holder will contact you for a colon screen test - it is a colon cancer screening that you will do at home and send in to the key holder. . No fracture of foot - recommended [...] TWO hours after a meal - try Jasper [place] on your knee. Decrease Salt in diet. [...] appointment with then soon. Pt to try Jasper Bower[place] rub on the knees to help reduce [...]
--- OUTSIDE RECORDS SUMMARY | 2018-06-30 14:39 | XMS REPORT | CCD ---
Author Author Berenice Cohen Organization Berenice Cohen MD, [facility] Address [address] [place] [address] Phone Care Team Providers Care Forensic Scientist Name Role Phone PP Unavailable CCM Unavailable Summary Purpose Interface Exchange Insurance Providers Payer name Policy type / Coverage type Covered republican ID Effective Begin Date Effective End Date [employer] [id number] Unknown Unknown Family history Son Diagnosis Age [...] Unknown Retired 08/14/[address]: 105022352 Never smoker 08/14/[address]: 272826487 Never drinks alcohol 08/14/2014 Allergies, Adverse Reactions, Alerts Substance Reaction Codes Entered Date Inactivated Date Status AUGMENTIN hives, RxNorm: 118003 08/14/2014 No Inactive Date Active [id number] REDUCTASE INHIBITORS myalgias, Unknown 2015 No Inactive [...] Start Date Stop Date Status Fill Instructions Xanax 0.25 mg tablet RxNorm: 628951 1 Tablet(s) PO TID as needed anxiety 04/11/2018 06/09/2018 Active Zithromax Z-Dylan 250 mg tablet RxNorm: 510463 1 Tablet(s) PO UD 02/06/2018 No Stop Date Active Zyrtec 10 mg tablet RxNorm: 6592189 1 Tablet(s) PO daily 12/0801/06/2018 Inactive Zithromax Z-Dylan 250 mg tablet RxNorm: 866389 1 Tablet(s) PO UD 12/08/2017 02/05/2018 Inactive Lipitor 10 mg tablet RxNorm: 982004 1 Tablet(s) PO QHS 201706/21/2018 Active Lipitor 10 mg tablet RxNorm: 043680 TAKE 1 TABLET BY MOUTH EVERY DAY AT BEDTIME 11/24/2017 No Stop Date Active lisinopril 10 mg tablet RxNorm: 697593 1 Tablet(s) PO daily 08/17/2018 Active prednisone 20 mg tablet RxNorm: 487889 2 Tablet(s) PO daily 11/17/2017 Inactive Keflex 500 mg capsule RxNorm: 091196 1 Capsule(s) PO TID and take a probiotic BID x7days 11/07/2017 11/13/2017 Inactive take with probiotic BID amlodipine 5 mg tablet RxNorm: 914485 1 Tablet(s) PO daily 10/06/2018 Active cefdinir 300 mg capsule RxNorm: 310953 1 Capsule(s) PO BID 09/23/2017 Inactive cefdinir 300 mg capsule RxNorm: 717972 1 Capsule(s) PO BID started by Dr. Davila 09/14/2017 09/13/2017 Inactive betamethasone dipropionate 0.05 % topical cream RxNorm: 819797 1 Application TOP BID 08/29/2017 10/09/2017 Inactive mix with clotrimazole and apply to affected area clotrimazole 1 % topical cream RxNorm: 407809 1 Application TOP BID 08/29/2017 10/09/2017 Inactive mix with betamethasone and apply to affected area nystatin 100,000 unit/mL oral suspension RxNorm: 763970 5 Milliliter(s) PO QID 08/29/2017 09/17/2017 Inactive lisinopril 10 mg tablet RxNorm: 467596 1 Tablet(s) PO daily 11/14/2017 Inactive Kenalog 40 mg/mL suspension for injection RxNorm: 2328640 1 Milliliter(s) Inj 07/28/2017 07/28/2017 Inactive nystatin 100,000 unit/mL oral suspension RxNorm: 559577 5 Milliliter(s) PO QID 07/28/2017 08/06/2017 Inactive Keflex 500 mg capsule RxNorm: 143913 1 Capsule(s) PO TID 201708/03/2017 Inactive Flonase Allergy Relief 50 mcg/actuation nasal spray, suspension RxNorm: 6553218 USE ONE SPRAY(S) IN EACH NOSTRIL TWICE DAILY 07/25/2017 No Stop Date Active meclizine 25 mg tablet RxNorm: 007616 TAKE ONE TABLET BY MOUTH THREE TIMES DAILY NEEDED 07/25/2017 No Stop Date Active Voltaren 1 % topical gel RxNorm: 947143 1 Application TOP QID as needed 06/20/2017 No Stop Date Active Zithromax Z-Dylan 250 mg tablet RxNorm: 917059 1 Tablet(s) PO UD 06/20/2017 07/27/2017 Inactive z pack as directed Keflex 500 mg capsule RxNorm: 620160 1 Capsule(s) PO TID 201706/01/2017 Inactive Zithromax Z-Dylan 250 mg tablet RxNorm: 204626 1 Tablet(s) PO UD 04/27/2017 06/19/2017 Inactive z pack as directed lisinopril 10 mg tablet RxNorm: 485648 1 Tablet(s) PO daily 07/22/2017 Inactive Lipitor 10 mg tablet RxNorm: 118193 1 Tablet(s) PO QHS 201711/06/2017 Inactive Zithromax Z-Dylan 250 mg tablet RxNorm: 436162 1 Tablet(s) PO UD 02/15/2017 04/26/2017 Inactive z pack as directed meclizine 25 mg tablet RxNorm: 002070 TAKE ONE TABLET BY MOUTH THREE TIMES DAILY NEEDED 01/23/2017 07/24/2017 Inactive Zithromax Z-Dylan 250 mg tablet RxNorm: 218895 1 Tablet(s) PO UD 01/05/2017 02/14/2017 Inactive z pack as directed losartan 50 mg tablet RxNorm: 513251 1 Tablet(s) PO daily 201604/10/2017 Inactive amlodipine 5 mg tablet RxNorm: 713989 1 Tablet(s) PO daily 10/11/2017 Inactive Zithromax Z-Dylna 250 mg tablet RxNorm: 283763 1 Tablet(s) PO UD 12/16/2016 01/04/2017 Inactive z pack as directed Zyrtec 10 mg tablet RxNorm: 3679860 1 Tablet(s) PO daily 12/1601/14/2017 Inactive Lipitor 10 mg tablet RxNorm: 442999 1 Tablet(s) PO QHS 201602/22/2017 Inactive Zithromax Z-Dylan 250 mg tablet RxNorm: 483017 1 Tablet(s) PO UD 09/27/2016 12/15/2016 Inactive z pack as directed Lipitor 10 mg tablet RxNorm: 865933 1 Tablet(s) PO QHS 201610/25/2016 Inactive guaifenesin 400 mg tablet RxNorm: 373918 1 Tablet(s) PO BID as needed 08/04/2016 No Stop Date Active cefdinir 300 mg capsule RxNorm: 329764 1 Capsule(s) PO BID started by Dr. Davila 08/04/2016 08/13/2016 Inactive amlodipine 10 mg tablet RxNorm: 616459 1 Tablet(s) PO daily 07/201612/21/2016 Inactive Keflex 500 mg capsule RxNorm: 038111 1 Capsule(s) PO TID 201607/27/2016 Inactive Zyrtec 10 mg tablet RxNorm: 3975371 1 Tablet(s) PO daily 07/0107/30/2016 Inactive Xanax 0.25 mg tablet RxNorm: 016136 1 Tablet(s) PO TID as needed anxiety 07/01/2016 08/27/2016 Inactive amlodipine 5 mg tablet RxNorm: 335384 1 Tablet(s) PO daily 06/201607/30/2016 Inactive Keflex 500 mg capsule RxNorm: 745673 1 Capsule(s) PO TID 201607/03/2016 Inactive Keflex 500 mg capsule RxNorm: 429300 1 Capsule(s) PO TID 201606/23/2016 Inactive Keflex 500 mg capsule RxNorm: 401827 1 Capsule(s) PO TID 201606/30/2016 Inactive Flonase Allergy Relief 50 mcg/actuation nasal spray, suspension RxNorm: 3980156 USE ONE SPRAY(S) IN EACH NOSTRIL TWICE DAILY 06/20/2016 05/15/2017 Inactive amlodipine 10 mg tablet RxNorm: 794267 1 Tablet(s) PO daily 04/201606/28/2016 Inactive Lipitor 10 mg tablet RxNorm: 533327 1 Tablet(s) PO QHS 201608/14/2016 Inactive Flonase Allergy Relief 50 mcg/actuation nasal spray, suspension RxNorm: 2889858 USE ONE SPRAY(S) IN EACH NOSTRIL TWICE DAILY 04/18/2016 05/17/2016 Inactive cephalexin 500 mg capsule RxNorm: 687129 1 Capsule(s) PO TID 04/05/2016 Inactive take with probiotics BID amlodipine 10 mg tablet RxNorm: 896013 1 Tablet(s) PO daily 02/201605/29/2016 Inactive Bactroban 2 % topical cream RxNorm: 416911 1 Application TOP BID 03/30/2016 04/08/2016 Inactive Zithromax Z-Dylan 250 mg tablet RxNorm: 798173 1 Tablet(s) PO UD 03/10/2016 05/15/2016 Inactive z pack as directed Keflex 500 mg capsule RxNorm: 523640 1 Capsule(s) PO TID 201502/25/2016 Inactive take with probiotics BID acyclovir 800 mg tablet RxNorm: 900090 1 Tablet(s) PO TID 01/2402/21/2016 Inactive Zithromax Z-Dylan 250 mg tablet RxNorm: 092129 1 Tablet(s) PO UD 01/19/2016 01/24/2016 Inactive z pack Flonase Allergy Relief 50 mcg/actuation nasal spray, suspension RxNorm: 0679075 USE ONE SPRAY(S) IN EACH NOSTRIL TWICE DAILY 12/28/2015 02/25/2016 Inactive Kenalog 40 mg/mL suspension for injection RxNorm: 3535703 Milliliter(s) Inj 12/18/2015 12/18/2015 Inactive Keflex 500 mg capsule RxNorm: 699972 1 Capsule(s) PO TID 201512/24/2015 Inactive Zithromax Z-Dylan 250 mg tablet RxNorm: 831346 1 Tablet(s) PO UD 12/09/2015 12/23/2015 Inactive z pack meclizine 25 mg tablet RxNorm: 184875 1 Tablet(s) PO TID as needed 12/09/2015 12/08/2015 Inactive meclizine 25 mg tablet RxNorm: 677618 1 Tablet(s) PO TID as needed 12/09/2015 02/26/2016 Inactive Keflex 500 mg capsule RxNorm: 291775 1 Capsule(s) PO TID 201511/22/2015 Inactive Cipro 500 mg tablet RxNorm: 599148 1 Tablet(s) PO BID 201511/13/2015 Inactive Keflex 500 mg capsule RxNorm: 472183 1 Capsule(s) PO TID 201510/30/2015 Inactive Xanax 0.25 mg tablet RxNorm: 971877 1 Tablet(s) PO TID as needed anxiety 09/18/2015 11/13/2015 Inactive Keflex 500 mg capsule RxNorm: 667114 1 Capsule(s) PO TID 201508/19/2015 Inactive losartan 50 mg tablet RxNorm: 082607 1 Tablet(s) PO daily 201507/07/2015 Inactive Pepcid 20 mg tablet RxNorm: 299285 1 Tablet(s) PO BID 201507/07/2015 Inactive Pepcid 20 mg tablet RxNorm: 838251 1 Tablet(s) PO BID 201501/31/2016 Inactive losartan 50 mg tablet RxNorm: 631678 1 Tablet(s) PO daily 201501/31/2016 Inactive prednisone 20 mg tablet RxNorm: 501560 2 Tablet(s) PO daily 06/22/2015 Inactive prednisone 20 mg tablet RxNorm: 468469 2 Tablet(s) PO daily 12/23/2015 Inactive Diflucan 100 mg tablet RxNorm: 264790 TAKE ONE TABLET BY MOUTH ONCE DAILY 06/12/2015 12/23/2015 Inactive Zithromax Z-Dylan 250 mg tablet RxNorm: 660369 1 Tablet(s) PO UD 06/05/2015 07/06/2015 Inactive z pack amlodipine 5 mg tablet RxNorm: 009282 1 Tablet(s) PO daily 03/29/2016 Inactive Zetia 10 mg tablet RxNorm: 961188 1 Tablet(s) PO daily 201506/14/2015 Inactive valsartan 160 mg tablet RxNorm: 075417 1 Tablet(s) PO daily 07/07/2015 Inactive Lipitor 10 mg tablet RxNorm: 432306 1 Tablet(s) PO QHS 201505/18/2015 Inactive Lipitor 10 mg tablet RxNorm: 398478 1 Tablet(s) PO QHS 201504/27/2015 Inactive Zithromax 250 mg tablet RxNorm: 330533 Tablet(s) PO UD 201504/28/2015 Inactive Keflex 500 mg capsule RxNorm: 237211 1 Capsule(s) PO TID 201503/22/2015 Inactive Keflex 500 mg capsule RxNorm: 622436 1 Capsule(s) PO TID 201504/01/2015 Inactive Xanax 0.25 mg tablet RxNorm: 713727 1 Tablet(s) PO TID as needed anxiety 03/12/2015 07/04/2016 Inactive carvedilol 25 mg tablet RxNorm: 104684 1 Tablet(s) PO BID 03/1201/31/2016 Inactive amlodipine 5 mg tablet RxNorm: 183773 1 Tablet(s) PO BID 201505/18/2015 Inactive Diflucan 100 mg tablet RxNorm: 456142 1 Tablet(s) PO daily 03/21/2015 Inactive Diflucan 100 mg tablet RxNorm: 160450 1 Tablet(s) PO daily 02/14/2015 Inactive Diflucan 100 mg tablet RxNorm: 274160 1 Tablet(s) PO daily 06/201401/05/2015 Inactive Diflucan 100 mg tablet RxNorm: 462133 1 Tablet(s) PO daily 06/201412/31/2014 Inactive nystatin 100,000 unit/mL oral suspension RxNorm: 410958 5 Milliliter(s) PO QID 12/24/2014 06/14/2015 Inactive nystatin 100,000 unit/mL oral suspension RxNorm: 470785 5 Milliliter(s) PO QID 12/24/2014 12/23/2014 Inactive Zithromax 250 mg tablet RxNorm: 009100 1 Tablet(s) PO daily 12/19/2014 Inactive Zithromax 250 mg tablet RxNorm: 048301 1 Tablet(s) PO daily 12/14/2014 Inactive Flonase Allergy Relief 50 mcg/actuation nasal spray, suspension RxNorm: 1 [place] NASAL BID 12/11/2014 12/10/2014 Inactive Flonase Allergy Relief 50 mcg/actuation nasal spray, suspension RxNorm: 7485556 1 [place] NASAL BID 12/11/20142015 Inactive amlodipine 5 mg tablet RxNorm: 135705 2 Tablet(s) PO daily 11/13/2014 Inactive amlodipine 5 mg tablet RxNorm: 605129 2 Tablet(s) PO daily 03/11/2015 Inactive Lotrisone 1 %-0.05 % topical cream RxNorm: 912733 1 TOP BID until healed 10/17/2014 10/30/2014 Inactive Lotrisone 1 %-0.05 % topical cream RxNorm: 278561 1 TOP BID until healed 10/16/2014 10/16/2014 Inactive Lotrisone 1 %-0.05 % topical cream RxNorm: 930211 1 TOP BID until healed 10/06/2014 10/15/2014 Inactive Keflex 500 mg capsule RxNorm: 993741 1 Capsule(s) PO TID 201408/11/2014 Inactive Keflex 500 mg capsule RxNorm: 549693 1 Capsule(s) PO TID 201408/18/2014 Inactive clotrimazole 1 % topical solution RxNorm: 416486 1 Drop(s) TOP BID No Start Date Active Vitamin D3 5,000 unit tablet RxNorm: 926762 1 Tablet(s) PO daily No Start Date Active guaifenesin 400 mg tablet RxNorm: 915348 1 Tablet(s) PO BID as needed No Start Date 08/03/2016 Inactive Lotrisone 1 %-0.05 % topical cream RxNorm: 181277 1 TOP BID until healed No Start Date 10/05/2014 Inactive lisinopril 40 mg tablet RxNorm: 381381 1 Tablet(s) PO daily No Start Date 05/18/2015 Inactive amlodipine 5 mg tablet RxNorm: 181497 1 Tablet(s) PO daily No Start Date 11/13/2014 Inactive indapamide 1.25 mg tablet RxNorm: 271570 1 Tablet(s) PO daily No Start Date 01/31/2016 Inactive aspirin 81 mg tablet RxNorm: 017699 1 Tablet(s) PO daily No Start Date 02/07/2017 Inactive Medication Administered Medication Codes Instructions Start Date Status Kenalog 40 mg/mL suspension for injection RxNorm: 3588262 1Milliliter 07/28/2017 No longer Active Kenalog 40 mg/mL suspension for injection RxNorm: 6304391 Milliliter 12/18/2015 No longer Active Immunizations Vaccine [...] 30.8 pg 04/11/2018 Cbc With Differential Ord2 [place]% 13.0 % 04/11/2018 Cbc With Differential Ord2 [...] 3.09 K/ul 04/11/2018 Cbc With Differential Ord2 [place] ABS# 1.2 K/ul 04/11/2018 Cbc With Differential Ord2 Eos ABS# 0.2 K/ul 04/11/2018 Cbc With Differential Ord2 Baso ABS# 0.1 K/ul 04/11/2018 Tsh Ord6 TSH (3rd IS) 2.85 uIU/mL 04/11/2018 %Hba1C Bhr479 % HbA1c 45656-8 7.1 % 04/11/2018 %Hba1C Drs182 Gluc Ave 157 mg/dL 04/11/2018 Lipid Ord30 CHOL 150 mg/dL 04/11/2018 Lipid Ord30 HDL 38.0 mg/dl 04/11/2018 Lipid Ord30 TRIG 203 mg/dL 04/11/2018 Lipid Ord30 LDL 71 mg/dL 04/11/2018 Lipid Ord30 C/HDL 3.9 Ratio 04/11/2018 Vitamin D 25 Oh Bny1889 VITAMIN D, 25 HYDROXY 48.86 ng/mL Comp Metabolic Kvm316 NA 138 mEq/L 04/11/2018 Comp Metabolic Pbs467 K 4.4 mEq/L 04/11/2018 Comp Metabolic Jxa063 CL 101 mEq/L 04/11/2018 Comp Metabolic Cji939 CO2 29.0 mEq/L 04/11/2018 Comp Metabolic Qud848 ANION GAP 12 04/11/2018 Comp Metabolic Qed336 GLUCOSE 120 mg/dL 04/11/2018 Comp Metabolic Cqb283 Creat 1.2 mg/dL 04/11/2018 Comp Metabolic Hfa000 eGFR 47 ml/min/1.73m2 04/11/2018 Comp Metabolic Plu774 BUN 23 mg/dL 04/11/2018 Comp Metabolic Fbo562 B/C Ratio 19.7 Ratio 04/11/2018 Comp Metabolic Ncy045 CALCIUM 10.3 mg/dL 04/11/2018 Comp Metabolic Ulq641 ALK PHOS 40 U/L 04/11/2018 Comp Metabolic Llx842 AST(SGOT) 15 U/L 04/11/2018 Comp Metabolic Vtr644 ALT(SGPT) 9 U/L 04/11/2018 Comp Metabolic Zay604 BILI T 1.0 mg/dL 04/11/2018 Comp Metabolic Klw180 ALBUMIN 4.3 g/dL 04/11/2018 Comp Metabolic Jcw954 TPRO 6.8 g/dL 04/11/2018 Comp Metabolic Vcn375 GLOB 2.5 g/dL 04/11/2018 Comp Metabolic Uoq575 A/G Ratio 1.7 Ratio 04/11/2018 Comp Metabolic Vph197 Osmo 281 mOsmo 04/11/2018 %Hba1C Otn491 % HbA1c 13344-9 6.5 % 12/01/2016 %Hba1C Mhx980 Gluc Ave 140 mg/dL 12/01/2016 Lipid Ord30 [...] 49.2 % 04/12/2016 Cbc With Differential Ord2 Lymph% 35.4 % 04/12/2016 Cbc With Differential Ord2 MCV 93.3 fl 04/12/2016 Cbc With Differential Ord2 [place]% 13.3 % 04/12/2016 Cbc With Differential Ord2 MCH 31.3 pg 04/12/2016 Cbc With Differential Ord2 Eos% 1.6 % 04/12/2016 Cbc With Differential Ord2 MCHC 33.5 pg 04/12/2016 Cbc With Differential Ord2 PLT 209 K/ul 04/12/2016 Cbc With Differential Ord2 Baso% 0.5 % 04/12/2016 Cbc With Differential Ord2 RDW 13.7 % 04/12/2016 Cbc With Differential Ord2 Neut ABS# 3.95 K/ul 04/12/2016 Cbc With Differential Ord2 Lymph ABS# 2.85 K/ul 04/12/2016 Cbc With Differential Ord2 [place] ABS# 1.1 K/ul 04/12/2016 Cbc With Differential Ord2 Eos ABS# 0.1 K/ul 04/12/2016 Cbc With Differential Ord2 Baso ABS# 0.0 K/ul 04/12/2016 Comp Metabolic Akv743 NA 129 mEq/L 04/12/2016 Comp Metabolic Uqj594 K 4.0 mEq/L 04/12/2016 Comp Metabolic Mlk034 CL 93 mEq/L 04/12/2016 Comp Metabolic Xon288 CO2 29.0 mEq/L 04/12/2016 Comp Metabolic Bcx275 ANION GAP 11 04/12/2016 Comp Metabolic Dgd284 GLUCOSE 100 mg/dL 04/12/2016 Comp Metabolic Whm919 Creat 1.0 mg/dL 04/12/2016 Comp Metabolic Nva687 eGFR 55 ml/min/1.73m2 04/12/2016 Comp Metabolic Pnc405 BUN 19 mg/dL 04/12/2016 Comp Metabolic Rrz742 B/C Ratio 18.8 Ratio 04/12/2016 Comp Metabolic Tmn744 CALCIUM 9.3 mg/dL 04/12/2016 Comp Metabolic Nnq804 ALK PHOS 38 U/L 04/12/2016 Comp Metabolic Bai668 AST(SGOT) 17 U/L 04/12/2016 Comp Metabolic Ljv587 ALT(SGPT) 11 U/L 04/12/2016 Comp Metabolic Exo447 BILI T 1.0 mg/dL 04/12/2016 Comp Metabolic Anz865 ALBUMIN 4.2 g/dL 04/12/2016 Comp Metabolic Taa656 TPRO 6.6 g/dL 04/12/2016 Comp Metabolic Tfv697 GLOB 2.4 g/dL 04/12/2016 Comp Metabolic Jlv580 A/G Ratio 1.8 Ratio 04/12/2016 Comp Metabolic Fcw149 Osmo 261 mOsmo 04/12/2016 Lipid Ord30 CHOL 265 mg/dL 04/12/2016 Lipid Ord30 HDL 42.0 mg/dl 04/12/2016 Lipid Ord30 TRIG 246 mg/dL 04/12/2016 Lipid Ord30 LDL 174 mg/dL 04/12/2016 Lipid Ord30 C/HDL 6.3 Ratio 04/12/2016 Tsh Ord6 hTSH II 2.49 uIU/mL 04/12/2016 Tsh Ord6 hTSH II 1.83 uIU/mL 06/12/2015 Comp Metabolic Rln852 NA 137 mEq/L 06/12/2015 Comp Metabolic Qpu963 K 4.4 mEq/L 06/12/2015 Comp Metabolic Aco522 CL 103 mEq/L 06/12/2015 Comp Metabolic Iat401 CO2 27.0 mEq/L 06/12/2015 Comp Metabolic Rsj795 ANION GAP 11 06/12/2015 Comp Metabolic Qld702 GLUCOSE 87 mg/dL 06/12/2015 Comp Metabolic Vfq502 Creat 1.3 mg/dL 06/12/2015 Comp Metabolic Kml592 eGFR 43 ml/min/1.73m2 06/12/2015 Comp Metabolic Swk790 BUN 32 mg/dL 06/12/2015 Comp Metabolic Biq132 B/C Ratio 25.4 Ratio 06/12/2015 Comp Metabolic Nmx029 CALCIUM 9.5 mg/dL 06/12/2015 Comp Metabolic Gwf295 ALK PHOS 36 U/L 06/12/2015 Comp Metabolic Dku212 AST(SGOT) 16 U/L 06/12/2015 Comp Metabolic Wmy024 ALT(SGPT) 17 U/L 06/12/2015 Comp Metabolic Keo231 BILI T 1.0 mg/dL 06/12/2015 Comp Metabolic Afn941 ALBUMIN 4.1 g/dL 06/12/2015 Comp Metabolic Jsm209 TPRO 6.5 g/dL 06/12/2015 Comp Metabolic Gxz767 GLOB 2.5 g/dL 06/12/2015 Comp Metabolic Qlo872 A/G Ratio 1.7 Ratio 06/12/2015 Comp Metabolic Ava307 Osmo 280 mOsmo 06/12/2015 Lipid Ord30 CHOL 250 mg/dL 06/12/2015 Lipid Ord30 HDL 56.0 mg/dl 06/12/2015 Lipid Ord30 TRIG 144 mg/dL 06/12/2015 Lipid Ord30 LDL 165 mg/dL 06/12/2015 Lipid Ord30 C/HDL 4.5 Ratio 06/12/2015 Cbc With Differential Ord2 WBC 8.01 K/ul 06/12/2015 Cbc With Differential Ord2 RBC 3.96 M/ul 06/12/2015 Cbc With Differential Ord2 HGB 12.1 g/dl 06/12/2015 Cbc With Differential Ord2 Neut% 61.9 % 06/12/2015 Cbc With Differential Ord2 HCT 36.6 % 06/12/2015 Cbc With Differential Ord2 Lymph% 24.5 % 06/12/2015 Cbc With Differential Ord2 MCV 92.4 fl 06/12/2015 Cbc With Differential Ord2 MCH 30.6 pg 06/12/2015 Cbc With Differential Ord2 [place]% 11.0 % 06/12/2015 Cbc With Differential Ord2 [...] 1.96 K/ul 06/12/2015 Cbc With Differential Ord2 [place] ABS# 0.9 K/ul 06/12/2015 Cbc With Differential [...] 38.0 % 03/12/2015 Cbc With Differential Ord2 Lymph% 21.9 % 03/12/2015 Cbc With Differential Ord2 MCV 94.5 fl 03/12/2015 Cbc With Differential Ord2 [place]% 10.7 % 03/12/2015 Cbc With Differential Ord2 MCH 30.3 pg 03/12/2015 Cbc With Differential Ord2 Eos% [...] 2.00 K/ul 03/12/2015 Cbc With Differential Ord2 [place] ABS# 1.0 K/ul 03/12/2015 Cbc With Differential Ord2 Eos ABS# 0.1 K/ul 03/12/2015 Cbc With Differential Ord2 Baso ABS# 0.0 K/ul 03/12/2015 Cbc With Differential Ord2 New Analyzer Notice Please note new ref ranges starting 03-11-2015 due to implemntation of new five part differential hematolgy analyzer. 03/12/2015 Comp Metabolic Atb878 NA 139 mEq/L 03/12/2015 Comp Metabolic Qbi568 K 4.2 mEq/L 03/12/2015 Comp Metabolic Koc065 CL 101 mEq/L 03/12/2015 Comp Metabolic Rfe605 CO2 28.0 mEq/L 03/12/2015 Comp Metabolic Gff247 ANION GAP 14 03/12/2015 Comp Metabolic Wca700 GLUCOSE 78 mg/dL 03/12/2015 Comp Metabolic Ekd289 Creat 1.1 mg/dL 03/12/2015 Comp Metabolic Brt464 eGFR 51 ml/min/1.73m2 03/12/2015 Comp Metabolic Zki691 BUN 17 mg/dL 03/12/2015 Comp Metabolic Har029 B/C Ratio 15.6 Ratio 03/12/2015 Comp Metabolic Pnh750 CALCIUM 9.4 mg/dL 03/12/2015 Comp Metabolic Hjx820 ALK PHOS 46 U/L 03/12/2015 Comp Metabolic Sei189 AST(SGOT) 16 U/L 03/12/2015 Comp Metabolic Jwz872 ALT(SGPT) 12 U/L 03/12/2015 Comp Metabolic Bik232 BILI T 0.8 mg/dL 03/12/2015 Comp Metabolic Hcm557 ALBUMIN 4.1 g/dL 03/12/2015 Comp Metabolic Wyl197 TPRO 6.6 g/dL 03/12/2015 Comp Metabolic Sfw711 GLOB 2.6 g/dL 03/12/2015 Comp Metabolic Xbp310 A/G Ratio 1.6 Ratio 03/12/2015 Comp Metabolic Xyg587 Osmo 278 mOsmo 03/12/2015 Lipid Ord30 CHOL [...] hTSH II 3.15 uIU/mL 12/01/2014 Comp Metabolic Cly571 NA 132 mEq/L 12/01/2014 Comp Metabolic Gnc899 K 4.4 mEq/L 12/01/2014 Comp Metabolic Egn729 CL 99 mEq/L 12/01/2014 Comp Metabolic Xcy837 CO2 27.0 mEq/L 12/01/2014 Comp Metabolic Uwq596 ANION GAP 10 12/01/2014 Comp Metabolic Iph219 GLUCOSE 86 mg/dL 12/01/2014 Comp Metabolic Vun770 Creat 1.2 mg/dL 12/01/2014 Comp Metabolic Jkq773 eGFR 46 ml/min/1.73m2 12/01/2014 Comp Metabolic Jxd583 BUN 32 mg/dL 12/01/2014 Comp Metabolic Hhk090 B/C Ratio 27.1 Ratio 12/01/2014 Comp Metabolic Buy767 CALCIUM 9.4 mg/dL 12/01/2014 Comp Metabolic Fdt586 ALK PHOS 35 U/L 12/01/2014 Comp Metabolic Uaw445 AST(SGOT) 14 U/L 12/01/2014 Comp Metabolic Kiq331 ALT(SGPT) 13 U/L 12/01/2014 Comp Metabolic Pkg434 BILI T 0.8 mg/dL 12/01/2014 Comp Metabolic Xny051 ALBUMIN 4.0 g/dL 12/01/2014 Comp Metabolic Flb232 TPRO 6.8 g/dL 12/01/2014 Comp Metabolic Gmt859 GLOB 2.8 g/dL 12/01/2014 Comp Metabolic Mcq890 A/G Ratio 1.4 Ratio 12/01/2014 Comp Metabolic Ohh026 Osmo 271 mOsmo 12/01/2014 Review of Systems [...] left 04/11/2018 None Full Exam - General 1995 Ears/Nose/Throat internal nose Drainage: right 04/11/2018 None [...] FLU VACC PRSV FREE INC ANTIG CPT-4: 39811 11/13/2017 ADMIN INFLUENZA VIRUS VAC CPT-4: G0008 11/13/2017 TRIAMCINOLONE ACET INJ NOS CPT-4: J3301 07/28/2017 PPPS, SUBSEQ VISIT CPT -4: G0439 02/08/2017 URINALYSIS NONAUTO W/O SCOPE CPT-4: 36384 08/15/2016 PPPS, SUBSEQ VISIT CPT -4: G0439 02/01/2016 TRIAMCINOLONE ACET INJ NOS CPT-4: J3301 12/18/2015 ADMIN INFLUENZA VIRUS VAC CPT-4: G0008 11/26/2015 FLU VACC 4 GISELA 3 YRS PLUS IM Formatting Model/CDA Sections, Assigned to/YairMalina SNOMED CT: 35843260 CPT-4: 59545Mqotqng 11/26/2015 URINALYSIS NONAUTO W/O SCOPE CPT-4: 34884 11/20/2015 URINALYSIS NONAUTO W/O SCOPE CPT-4: 49092 11/13/2015 IMMUNIZATION ADMIN CPT -4: 65504 12/01/2014 FLU VACC 4 GISELA 3 YRS PLUS IM Formatting Model/CDA Sections, Assigned to/Malina Mazariegos SNOMED CT: 45845967 CPT-4: 16080Axijcpd 12/01/2014 Vital Signs Date Vital 04/11/2018 Blood Pressure 1: 142/56 Code : 8480-6 BMI: 25.1 Code : 01563-1 Heart Rate 1 : 68 bpm Height: 5'1" SpO2: 96% Weight: 133 lbs 02/06/2018 Blood Pressure 1: 142/60 Code : 8480-6 BMI: 25.3 Code : 79994-0 Heart Rate 1 : 68 bpm Height: 5'1" SpO2: 99% Temperature: 37.0 (C) / 98.6 (F) Weight: 134 lbs 12/08/2017 Blood Pressure 1: 140/52 Code : 8480-6 BMI: 25.5 Code : 73721-7 Heart Rate 1 : 77 bpm Height: 5'1" SpO2: 96% Temperature: 36.6 (C) / 97.9 (F) Weight: 135 lbs 11/13/2017 Blood Pressure 1: 134/54 Code : 8480-6 BMI: 24.8 Code : 05208-9 Heart Rate 1 : 73 bpm Height: 5'1" SpO2: 98% Weight: 131 lbs 08/29/2017 Blood Pressure 1: 162/64 Code : 8480-6 BMI: 24.9 Code : 17021-2 Heart Rate 1 : 61 bpm Height: 5'1" SpO2: 96% Weight: 132 lbs 07/28/2017 Blood Pressure 1: 148/62 Code : 8480-6 BMI: 25.1 Code : 37563-3 Heart Rate 1 : 67 bpm Height: 5'1" SpO2: 99% Temperature: 36.4 (C) / 97.5 (F) Weight: 133 lbs 06/20/2017 Blood Pressure 1: 140/52 Code : 8480-6 BMI: 25.3 Code : 11511-7 Heart Rate 1 : 64 bpm Height: 5'1" SpO2: 98% Weight: 134 lbs 05/26/2017 Blood Pressure 1: 140/56 Code : 8480-6 BMI: 25.7 Code : 72207-6 Heart Rate 1 : 74 bpm Height: 5'1" SpO2: 95% Weight: 136 lbs 04/24/2017 Blood Pressure 1: 140/68 Code : 8480-6 BMI: 24.6 Code : 15359-9 Heart Rate 1 : 67 bpm Height: 5'1" SpO2: 97% Weight: 130 lbs 02/08/2017 Blood Pressure 1: 134/76 Code : 8480-6 BMI: 24.9 Code : 93563-9 Heart Rate 1 : 67 bpm Height: 5'1" SpO2: 98% Waist Measure (cm): 86512 cm Weight: 132 lbs 12/22/2016 Blood Pressure 1: 156/80 Code : 8480-6 BMI: 24.2 Code : 88502-5 Heart Rate 1 : 65 bpm Height: 5'1" SpO2: 98% Weight: 128 lbs 12/16/2016 Blood Pressure 1: 138/62 Code : 8480-6 BMI: 23.8 Code : 11509-1 Heart Rate 1 : 63 bpm Height: 5'1" SpO2: 98% Weight: 126 lbs 08/15/2016 Blood Pressure 1: 130/60 Code : 8480-6 BMI: 25.3 Code : 62824-4 Heart Rate 1 : 72 bpm Height: 5'1" SpO2: 95% Weight: 134 lbs 08/02/2016 Blood Pressure 1: 160/62 Code : 8480-6 BMI: 25.3 Code : 39238-8 Heart Rate 1 : 67 bpm Height: 5'1" SpO2: 97% Weight: 134 lbs 07/21/2016 Blood Pressure 1: 148/66 Code : 8480-6 BMI: 25.9 Code : 46918-8 Heart Rate 1 : 71 bpm Height: 5'1" SpO2: 97% Temperature: 36.8 (C) / 98.2 (F) Weight: 137 lbs 07/01/2016 Blood Pressure 1: 142/72 Code : 8480-6 BMI: 26.5 Code : 15504-2 Heart Rate 1 : 68 bpm Height: 5'1" SpO2: 94% Weight: 140 lbs 05/16/2016 Blood Pressure 1: 138/68 Code : 8480-6 Blood Pressure 1: 162/76 Code: 8480-6 BMI: 25.7 Code: 60947-1 Heart Rate 1: 58 bpm Height: 5'1" SpO2: 98% Weight: 136 lbs 04/06/2016 Blood Pressure 1: 138/74 Code : 8480-6 Blood Pressure 1: 162/72 Code: 8480-6 BMI: 25.7 Code: 01634-9 Heart Rate 1: 75 bpm Height: 5'1" SpO2: 97% Weight: 136 lbs 03/30/2016 Blood Pressure 1: 188/80 Code : 8480-6 BMI: 26.3 Code : 87989-0 Heart Rate 1 : 75 bpm Height: 5'1" SpO2: 98% Weight: 139 lbs 02/01/2016 Blood Pressure 1: 140/72 Code : 8480-6 BMI: 25.3 Code : 48909-0 Heart Rate 1 : 65 bpm Height: 5'1" SpO2: 97% Waist Measure (cm): 84 cm Weight: 134 lbs 01/25/2016 Blood Pressure 1: 140/74 Code : 8480-6 BMI: 25.1 Code : 67320-5 Heart Rate 1 : 66 bpm Height: 5'1" SpO2: 98% Weight: 133 lbs 12/24/2015 Blood Pressure 1: 142/66 Code : 8480-6 BMI: 24.9 Code : 95541-2 Heart Rate 1 : 54 bpm Height: 5'1" SpO2: 97% Weight: 132 lbs 12/18/2015 Blood Pressure 1: 152/62 Code : 8480-6 BMI: 25.5 Code : 20965-6 Heart Rate 1 : 66 bpm Height: 5'1" SpO2: 96% Weight: 135 lbs 12/11/2015 Blood Pressure 1: 136/54 Code : 8480-6 Heart Rate 1: 72 bpm SpO2: 98% Weight: 137 lbs 11/26/2015 Blood Pressure 1: 142/70 Code : 8480-6 BMI: 25.3 Code : 02410-5 Heart Rate 1 : 64 bpm Height: 5'1" SpO2: 97% Weight: 134 lbs 11/20/2015 Blood Pressure 1: 154/70 Code : 8480-6 Heart Rate 1: 65 bpm SpO2: 98% 10/23/2015 Blood Pressure 1: 138/62 Code : 8480-6 Heart Rate 1: 55 bpm SpO2: 98% 10/21/2015 Blood Pressure 1: 142/68 Code : 8480-6 BMI: 25.7 Code : 68981-3 Heart Rate 1 : 73 bpm Height: 5'1" SpO2: 98% Weight: 136 lbs 07/15/2015 Blood Pressure 1: 130/60 Code : 8480-6 BMI: 26.6 Code : 66606-7 Heart Rate 1 : 70 bpm Height: 5'1" SpO2: 97% Weight: 141 lbs 06/15/2015 Blood Pressure 1: 118/64 Code : 8480-6 BMI: 24.9 Code : 37880-1 Heart Rate 1 : 66 bpm Height: 5'1" SpO2: 99% Weight: 132 lbs 06/05/2015 Blood Pressure 1: 142/60 Code : 8480-6 Blood Pressure 1: 135/58 Code: 8480-6 Heart Rate 1: 64 bpm SpO2: 99% 05/19/2015 Blood Pressure 1: 146/60 Code : 8480-6 BMI: 27.1 Code : 21894-2 Heart Rate 1 : 66 bpm Height: 5'1" SpO2: 97% Weight: 143 lbs 8 oz 04/24/2015 Blood Pressure 1: 148/58 Code : 8480-6 BMI: 25.9 Code : 67378-1 Heart Rate 1 : 61 bpm Height: 5'1" SpO2: 98% Weight: 137 lbs 03/12/2015 Blood Pressure 1: 140/72 Code : 8480-6 BMI: 25.1 Code : 26180-1 Heart Rate 1 : 68 bpm Height: 5'1" SpO2: 98% Weight: 133 lbs 01/12/2015 Blood Pressure 1: 146/60 Code : 8480-6 BMI: 25.7 Code : 50786-6 Heart Rate 1 : 48 bpm Height: 5'1" SpO2: 97% Weight: 136 lbs 12/11/2014 Blood Pressure 1: 125/65 Code : 8480-6 Blood Pressure 1: 144/56 Code: 8480-6 BMI: 25.1 Code: 24315-7 Heart Rate 1: 56 bpm Height: 5'1" SpO2: 96% Weight: 133 lbs 12/01/2014 Blood Pressure 1: 136/60 Code : 8480-6 Heart Rate 1: 56 bpm SpO2: 96% Weight: 131 lbs 5 oz 08/14/2014 Blood Pressure 1: 132/72 Code : 8480-6 BMI: 25.5 Code : 96281-2 Heart Rate 1 : 73 bpm Height: [...] data Encounters Encounter Performer Location Codes Date ([id number]) 06822 EST. PATIENT, LEVEL IV Diagnosis: Essential (primary) hypertension[ICD10: I10] Diagnosis: Other abnormal glucose[ICD10: R73.09] Diagnosis: Mixed hyperlipidemia[ICD10: E78.2] Diagnosis: Vitamin D deficiency, unspecified[ICD10: E55.9] Berenice Cohen MD, [facility] CPT-4: 01246 04/11/2018 12508 EST. PATIENT, LEVEL IV Diagnosis: Other acute sinusitis[ICD10: J01.80] Diagnosis: Other allergic rhinitis[ICD10: J30.89] Evelyn Cohen MD, [facility] CPT-4: 16440 02/06/2018 [id number] EST. PATIENT, LEVEL III Diagnosis: Other allergic rhinitis[ICD10: J30.89] Diagnosis: Other acute sinusitis[ICD10: J01.80] Evelyn Cohen MD, [facility] CPT-4: 57124 12/08/2017 ([id number]) 16457 EST. PATIENT, LEVEL IV Diagnosis: Essential (primary) hypertension[ICD10: I10] Diagnosis: Chronic maxillary sinusitis[ICD10: J32.0] Diagnosis: Mixed hyperlipidemia[ICD10: E78.2] Diagnosis: Other abnormal glucose[ICD10: R73.09] Berenice Cohen MD, [facility] CPT-4: 34138 11/13/2017 ([id number]) 55780 EST. PATIENT, LEVEL III Diagnosis: Tinea corporis[ICD10: B35.4] Diagnosis: Essential (primary) hypertension[ICD10: I10] Drois Cohen MD, [facility] CPT-4: 17729 08/29/2017 ([id number]) 89759 EST. PATIENT, LEVEL III Diagnosis: Acute recurrent maxillary sinusitis[ICD10: J01.01] Diagnosis: Other allergic rhinitis[ICD10: J30.89] Doris Cohen MD, [facility] CPT-4: 50683 07/28/2017 44813 EST. PATIENT, LEVEL IV Diagnosis: Other acute sinusitis[ICD10: J01.80] Diagnosis: Other allergic rhinitis[ICD10: J30.89] Diagnosis: Otalgia, bilateral[ICD10: H92.03] Diagnosis: Pain in right knee[ICD10: M25.561] Diagnosis: Pain in left knee[ICD10: M25.562] Evelyn Cohen MD, [facility] CPT -4: 24784 06/20/2017 30244 EST. PATIENT, LEVEL IV Diagnosis: Other acute sinusitis[ICD10: J01.80] Diagnosis: Other allergic rhinitis[ICD10: J30.89] Diagnosis: Gastro-esophageal reflux disease without esophagitis[ICD10: K21.9] Evelyn Cohen MD, [facility] CPT-4: 86526 05/26/2017 70378 EST. PATIENT, LEVEL III Diagnosis: Essential (primary) hypertension[ICD10: I10] Evelyn Cohen MD, [facility] CPT-4: 37759 04/24/2017 ([id number]) 26250 EST. PATIENT, LEVEL IV Diagnosis: Essential (primary) hypertension[ICD10: I10] Diagnosis: Other abnormal glucose[ICD10: R73.09] Diagnosis: Mixed hyperlipidemia[ICD10: E78.2] Berenice Cohen MD, [facility] CPT-4: 08409 12/22/2016 99569 EST. PATIENT, LEVEL IV Diagnosis: Other acute sinusitis[ICD10: J01.80] Diagnosis: Other allergic rhinitis[ICD10: J30.89] Evelyn Cohen MD, [facility] CPT-4: 73374 12/16/2016 ([id number]) 18244 EST. PATIENT, LEVEL IV Diagnosis: Essential (primary) hypertension[ICD10: I10] Diagnosis: Mixed hyperlipidemia[ICD10: E78.2] Diagnosis: Dysuria[ICD10: R30.0] Berenice Cohen MD, [facility] CPT-4: 49911 08/15/2016 42823 EST. PATIENT, LEVEL III Diagnosis: Other acute sinusitis[ICD10: J01.80] Diagnosis: Other allergic rhinitis[ICD10: J30.89] Diagnosis: Otalgia, bilateral[ICD10: H92.03] Evelyn Cohen MD, [facility] CPT -4: 11650 08/02/2016 ([id number]) 85265 EST. PATIENT, LEVEL III Diagnosis: Acute recurrent maxillary sinusitis[ICD10: J01.01] Diagnosis: Otalgia, right ear[ICD10: H92.01] Doris Cohen MD, [facility] CPT-4: 78731 07/21/2016 04357 EST. PATIENT, LEVEL III Diagnosis: Dysuria[ICD10: R30.0] Diagnosis: Other allergic rhinitis[ICD10: J30.89] Evelyn Cohen MD [facility] CPT-4: 42206 07/01/2016 ([id number]) 45252 EST. PATIENT, LEVEL IV Diagnosis: Essential (primary) hypertension[ICD10: I10] Diagnosis: Mixed hyperlipidemia[ICD10: E78.2] Berenice Cohen MD [facility] CPT-4: 23235 05/16/2016 76808 EST. PATIENT, LEVEL III Diagnosis: Mixed hyperlipidemia[ICD10: E78.2] Diagnosis: Essential (primary) hypertension[ICD10: I10] Diagnosis: Laceration without foreign body of left hand, subsequent encounter[ ICD10: S61.412D] Evelyn Cohen MD [facility] CPT-4: 42732 04/06/2016 ([id number]) 11727 EST. PATIENT, LEVEL III Diagnosis: Essential (primary) hypertension[ICD10: I10] Berenice Cohen MD [facility] CPT-4: 50444 03/30/2016 ([id number]) 54982 EST. 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 PATIENT, LEVEL III Diagnosis: Essential (primary) hypertension[ICD10: I10] Berenice Cohen MD [facility] CPT-4: 45736 12/24/2015 49491 EST. PATIENT, LEVEL III Diagnosis: Other acute sinusitis[ICD10: J01.80] Diagnosis: Other allergic rhinitis[ICD10: J30.89] Evelyn Cohen MD [facility] CPT-4: 09147 12/18/2015 ([id number]) Miscellaneous no charge Diagnosis: Essential (primary) hypertension[ICD10: I10] Evelyn Cohen MD [facility] CPT-4: 64175 12/11/2015 ([id number]) 85761 EST. PATIENT, LEVEL IV Diagnosis: Essential (primary) hypertension[ICD10: I10] Diagnosis: Other abnormal glucose[ICD10: R73.09] Diagnosis: Encounter for immunization[ICD10: Z23] Berenice Cohen MD, [facility] CPT-4: 86170 11/26/2015 ([id number]) Miscellaneous no charge Diagnosis: Bitten by dog, initial encounter[ICD10: W54.0XXA] Evelyn Cohen MD, [facility] CPT-4: 51402 10/29/2015 ([id number]) Miscellaneous no charge Diagnosis: Essential (primary) hypertension[ICD10: I10] Diagnosis: Bitten by dog, initial encounter[ICD10: W54.0XXA] Evelyn Cohen MD, [facility] CPT-4: 03336 10/23/2015 28862 EST. PATIENT, LEVEL III Diagnosis: Cellulitis of face[ICD10: L03.211] Diagnosis: Bitten by dog, initial encounter[ICD10: W54.0XXA] Evelyn Cohen MD, [facility] CPT-4: 70077 10/21/2015 ([id number]) Miscellaneous no charge Diagnosis: Essential (primary) hypertension[ICD10: I10] Evelyn Cohen MD, [facility] CPT-4: 98891 07/15/2015 ([id number]) 32541 EST. PATIENT, LEVEL IV Diagnosis: Essential (primary) hypertension[ICD10: I10] Diagnosis: Mixed hyperlipidemia[ICD10: E78.2] Diagnosis: Dry mouth, unspecified[ICD10: R68.2] Berenice Cohen MD, [facility] CPT-4: 51623 06/15/2015 ([id number]) Miscellaneous no charge Diagnosis: Essential (primary) hypertension[ICD10: I10] Doris Cohen MD, [facility] CPT-4: 61820 06/05/2015 ([id number]) 03110 EST. PATIENT, LEVEL IV Diagnosis: Mammographic microcalcification found on diagnostic imaging of breast [ICD10: R92.0] Diagnosis: Edema, unspecified[ICD10: R60.9] Diagnosis: Essential (primary) hypertension[ICD10: I10] Berenice Cohen MD, [facility] CPT-4: 74953 05/19/2015 67105 EST. PATIENT, LEVEL IV Diagnosis: Other acute sinusitis[ICD10: J01.80] Diagnosis: Acute nasopharyngitis [common cold][ICD10: J00] Diagnosis: Other allergic rhinitis[ICD10: J30.89] Diagnosis: Localized edema[ICD10: R60.0] Diagnosis: Mixed hyperlipidemia[ICD10: E78.2] Evelyn Cohen MD, [facility] CPT-4: 38953 04/24/2015 ([id number]) 99306 EST. PATIENT, LEVEL IV Diagnosis: Essential (primary) hypertension[ICD10: I10] Diagnosis: Abscess of liver[ICD10: K75.0] Diagnosis: Anemia, unspecified[ICD10: D64.9] Berenice Cohen MD, [facility] CPT-4: 35263 03/12/2015 29365 EST. PATIENT, LEVEL IV Diagnosis: Essential (primary) hypertension[ICD10: I10] Diagnosis: Candidal stomatitis[ICD10: B37.0] Diagnosis: Pain in unspecified knee[ICD10: M25.569] Diagnosis: Edema, unspecified[ICD10: R60.9] Evelyn Cohen MD, [facility] CPT- 4: 10349 01/12/2015 ([id number]) 82522 EST. PATIENT, LEVEL III Diagnosis: Pain in right foot[ICD10: M79.671] Berenice Cohen MD, [facility] CPT-4: 18156 12/11/2014 ([id number]) 23459 EST. PATIENT, LEVEL IV Diagnosis: Abscess of liver[ICD10: K75.0] Diagnosis: Hypo-osmolality and hyponatremia[ICD10: E87.1] Diagnosis: Essential (primary) hypertension[ICD10: I10] Diagnosis: VACCIN FOR INFLUENZA[ICD10: Z23] [facility] CPT-4: 99764 12/01/2014 ([id number]) OFFICE VISIT, NEW - LEVEL 4 Diagnosis: ESSENTIAL HYPERTENSION[ICD9: 401.9] Diagnosis: Chronic maxillary sinusitis[ICD9: 473.0] Berenice Cohen MD, [facility] CPT-4: 29588 08/14/2014 Plan of Care Planned Activity Notes [...] assure normal liver response to medications. 04/11/2018 Patient Education: Patient Medication Summary Completed 04/11/2018 Patient Education: Hypertension Completed 04/11/2018 Patient Education: Cholesterol Management Completed 04/11/2018 Patient Education: Patient Medication Summary Completed 03/30/2018 Care Plan: Comp Metabolic Pending 03/30/2018 Care Plan: Cbc With Differential Pending 03/30/2018 Care Plan: Tsh Pending 03/30/2018 Care Plan: Lipid Pending 03/30/2018 Appointment: Berenice Cohen WPtel: [facility]5 [facility] (15 min) Moderate 03/28/2018 Appointment: Berenice Cohen WPtel: [address] [place], [place] [phone] (15 min) Moderate 03/19/2018 Visit Plan: [...] allergy spray. 02/06/2018 Appointment: Evelyn West WPtel: [phone] [facility] (15 min) Moderate 02/06/2018 Patient Education: Patient Medication Summary Completed 02/06/2018 Patient Education: Patient Medication Summary Completed 12/29/2017 Care Plan: %Hba1C [facility] : 58670-9 Pending 12/11/2017 Visit Plan: Sinusitis - Pt [...] allergy spray. 12/08/2017 Appointment: Evelyn West WPtel: [address] [place], [place] [phone] (15 min) Moderate 12/08/2017 Patient Education: Patient [...] today 11/13/2017 Appointment: Berenice Cohen WPtel: [phone] (15 min) Moderate 11/13/2017 Patient Education: Patient Medication Summary Completed 11/13/2017 Patient Education: Cholesterol Management Completed 11/13/2017 Visit Plan: Tinea-rx sent to patient's pharmacy and instructed on use-keep groin clean/dry -call if symptoms do not resolve or if any worse HTN-elevated today-monitor and home and call if continues to be elevated 08/29/2017 Appointment: Doris Sheffield WPtel: [facility] [facility]9 [address] (15 min) Moderate 08/29/2017 Patient Education: [...] any worse 07/28/2017 Appointment: Doris Sheffield WPtel: [facility] [place] [facility]2 [place] [phone] (30 min) Complex 07/28/2017 Patient Education: Patient [...] improve. 06/20/2017 Appointment: Evelyn West WPtel: [phone] [facility] (15 min) Moderate 06/20/2017 Patient Education: Patient [...] not improving. 05/26/2017 Appointment: Evelyn West WPtel: [phone] [facility] (15 min) Moderate 05/26/2017 Patient Education: Patient [...] acute concerns. 04/24/2017 [facility]ment: [phone] (30 min) Complex 04/24/2017 Patient Education: [...] care surrogate. 02/08/2017 Appointment: Evelyn West WPtel: [phone] [facility] [facility] - Annual Wellness Visit 02/08/2017 [...] today 12/22/2016 App[facility]ment: [phone] (15 min) Moderate 12/22/2016 Patient Education: Patient [...] allergy spray. 12/16/2016 Appointment: [facility]Ptel[phone] (30 min) Complex 12/16/2016 Patient Education: Patient Medication Summary Completed 12/16/2016 Appointment: [phone] (15 min) Moderate 11/15/2016 Visit Plan: Hypertension [...] carbohydrates. 08/15/2016 Appointment: Berenice Cohen WPtel: [phone] [facility]66[facility] (15 min) Moderate 08/15/2016 Patient Education: Patient Medication Summary Completed 08/15/2016 Appointment: Doris Sheffield WPtel: [phone] [phone] (15 min) Moderate 08/05/2016 Visit Plan: Allergies [...] improvement. 08/02/2016 Appointment: Evelyn West WPtel: [phone] (30 min) Complex 08/02/2016 Patient Education: [...] flushed 07/21/2016 Appointment: Doris Sheffield WPtel: [phone] [phone] (15 min) Moderate 07/21/2016 Patient Education: Patient [...] 10mg nightly. 05/16/2016 Appointment: Berenice Cohen WPtel: [address] [place], [place] [address] (15 min) Moderate 05/16/2016 Patient Education: Patient [...] concerns. 04/06/2016 Appointment: [facility]Ptel[phone] (10 min) Simple 04/06/2016 Patient Education: [...] daily. 03/30/2016 Appointment: [facility]el[phone] [facility] (15 min) Moderate 03/30/2016 Patient Education: Patient Medication Summary Completed 03/30/2016 Appointment: [phone] (15 min) Moderate 03/24/2016 Visit Plan: Medicare [...] surrogate. 02/01/2016 Appointment: Evelyn West WPtel: [phone] [facility] [facility] - Annual Wellness Visit 02/01/2016 Patient Education: Patient Medication Summary Completed 02/01/2016 Visit Plan: Apthous ulcer - rx for acyclovir 800mg tid x7 days Sample of Voltaren gel to use on knees tid prn 01/25/2016 Appointment: Berenice Cohen WPtel: [phone] [facility] (15 min) Moderate 01/25/2016 Patient Education: Patient [...] home. 12/24/2015 Appointment: Berenice Cohen WPtel: [phone] [facility] (15 min) Moderate 12/24/2015 Patient Education: Patient [...] improvement. 12/18/2015 Appointment: Doris Sheffield WPtel: [phone] [phone] [place] (15 min) Moderate 12/18/2015 Patient Education: [...] - 11/26/2015 Appointment: [facility] Cohen [facility]el[phone] (15 min) Moderate 11/26/2015 Patient Education: Patient [...] pain. 10/21/2015 Appointment: Doris Sheffield [facility]Ptel[phone] (15 min) Moderate 10/21/2015 Patient Education: [...] are fine. BIOTENE mouth spray 06/15/2015 Appointment: Vicki Berenice WPtel: [phone] [facility] [place] (15 min) Moderate 06/15/2015 Patient Education: Patient Medication Summary Completed 06/15/2015 Patient Education: Patient Medication Summary Completed 06/12/2015 Appointment: Berenice Cohen WPtel: [phone] [facility] [place] (15 min) Moderate 06/11/2015 Appointment: Nurse [...] the day 03/12/2015 Appointment: Berenice Cohen WPtel: [address] [place], [place] [address] (15 min) Moderate 03/12/2015 Patient Education: Patient [...] appointment with then soon. Pt to try [place] rub on the knees to help reduce [...] is sore 12/11/2014 Appointment: Berenice Cohen WPtel: [address] [place], [place] [phone] (15 min) Moderate 12/11/2014 Patient Education: [...] not improving. 12/01/2014 Appointment: Berenice Cohen WPtel: [address] [place], [place] [phone] (15 min) Moderate 12/01/2014 Patient Education: Patient Medication Summary Completed 12/01/2014 Patient Education: Hypertension Completed 12/01/2014 Appointment: Berenice Cohen WPtel: [address] [place], [place] [phone] (15 min) Moderate 09/15/2014 Visit [...] not improve. 08/14/2014 Appointment: Berenice Cohen WPtel: [address] [place], [place] [phone] [place] (S) New Patient 08/14/2014 Patient Education: [...] spray in the nasal steroid allergy spray. increase the amlodipine to 10mg daily - [...] cream on the skin twice daily. . Sinusitis - Pt has acute infection [...] spray in the nasal steroid allergy spray. change the amlodipine to 5mg at night [...] back on carbohydrates. prevnar vaccine today . Tinea-rx sent to patient's pharmacy and instructed on use -keep groin clean/dry -call if symptoms do not resolve or if any worse HTN-elevated today-monitor and home and call if continues to be elevated try [place] on your knee. Decrease Salt in diet. [...] appointment with then soon. Pt to try [place] rub on the knees to help reduce [...] any side effects or allergic type reactions. Vary the times that you are checking [...] foot where it is sore [employer] spanish translator will contact you for a colon screen test - it is a colon cancer screening that you will do at home and send in to the spanish translator. . No fracture of foot - recommended [...] or with any questions or concerns. . Allergies - chronic - recommended pt [...] Call if symptoms do not show improvement. biotin sweet oil to right ear and [...] call if symptoms do not improve. . Sinusitis - Pt has acute infection [...] size of the lesion, increase in pain. start nexium over the counter for a [...]
--- OUTSIDE RECORDS SUMMARY | 2018-06-30 14:44 | XMS REPORT | CCD ---
Author Author Berenice Cohen Organization Berenice Cohen MD, [facility] Address [address] [place] [address] Phone Care Team Providers Care Lacing Presser Name Role Phone PP Unavailable CCM Unavailable Summary Purpose Interface Exchange Insurance Providers Payer name Policy type / Coverage type Covered constitution party ID Effective Begin Date Effective End Date [employer] Commercial Insurance [id number] Unknown Unknown Family history Son Diagnosis Age [...] Unknown Retired 08/14/[address]: 642020806 Never smoker 08/14/[address]: 937101738 Never drinks alcohol 08/14/2014 Allergies, Adverse Reactions, Alerts Substance Reaction Codes Entered Date Inactivated Date Status AUGMENTIN hives, RxNorm: 239645 08/14/2014 No Inactive Date Active [id number] REDUCTASE INHIBITORS myalgias, Unknown 2015 No Inactive Date Active Past Medical History Illness Codes Condition Status Onset Date Resolved Date Essential (primary) hypertension ICD-9: 401.1 ICD-10: I10 Active 12/23/2015 Unknown Hypo-osmolality and hyponatremia ICD-9: 276.1 ICD-10: E87.1 Active 11/30/2014 Unknown Mixed hyperlipidemia ICD-9: 272.2 ICD-10: E78.2 Active 06/14/2015 Unknown Other acute sinusitis ICD-9: 461.8 ICD-10: J01.80 Active 12/17/2015 Unknown Other allergic rhinitis ICD-9: 477.8 ICD-10: J30.89 Active 12/17/2015 Unknown Encounter for screening mammogram for malignant neoplasm of breast ICD-9: V76.10 ICD-10: Z12.31 Active 12/29/2017 Unknown Acute recurrent maxillary sinusitis ICD-9: 461.0 ICD-10: J01.01 Active 07/21/2016 Unknown Chronic maxillary sinusitis ICD-9: 473.0 ICD-10: J32.0 Active 11/13/2017 Unknown Other abnormal glucose ICD-9: 790.29 ICD-10: R73.09 Active 11/25/2015 Unknown VACCIN FOR INFLUENZA ICD-9: V04.81 ICD-10: [...] -9: 388.70 ICD-10: H92.01 Active 07/21/2016 Unknown Essential (primary) hypertension ICD-9: 401.9 ICD-10: I10 Active 06/11/2015 Unknown Laceration without foreign body of left [...] hyponatremia ICD-9: 276.1 ICD-10: E87.1 11/30/2014 Active Mixed hyperlipidemia ICD-9: 272.2 ICD-10: E78.2 06/14/2015 Active Other acute sinusitis ICD-9: 461.8 ICD-10: J01.80 12/17/2015 Active Other allergic rhinitis ICD-9: 477.8 ICD-10: J30.89 12/17/2015 Active Encounter for screening mammogram for malignant neoplasm of breast ICD-9: V76.10 ICD-10: Z12.31 12/29/2017 Active Acute recurrent maxillary sinusitis ICD-9: 461.0 ICD-10: J01.01 07/21/2016 Active Chronic maxillary sinusitis ICD-9: 473.0 ICD-10: J32.0 11/13/2017 Active Other abnormal glucose ICD-9: 790.29 ICD-10: R73.09 11/25/2015 Active VACCIN FOR INFLUENZA ICD-9: V04.81 ICD-10: [...] ICD -9: 388.70 ICD-10: H92.01 07/21/2016 Active Essential (primary) hypertension ICD-9: 401.9 ICD-10: [...] Instructions Zithromax Z-Dylan 250 mg tablet RxNorm: 187124 1 Tablet(s) PO UD 02/06/2018 No Stop Date Active Zyrtec 10 mg tablet RxNorm: 5340642 1 Tablet(s) PO daily 12/0801/06/2018 Inactive Zithromax Z-Dylan 250 mg tablet RxNorm: 128450 1 Tablet(s) PO UD 12/08/2017 02/05/2018 Inactive Lipitor 10 mg tablet RxNorm: 468718 1 Tablet(s) PO QHS 201706/21/2018 Active Lipitor 10 mg tablet RxNorm: 130573 TAKE 1 TABLET BY MOUTH EVERY DAY AT BEDTIME 11/24/2017 No Stop Date Active lisinopril 10 mg tablet RxNorm: 889818 1 Tablet(s) PO daily 08/17/2018 Active prednisone 20 mg tablet RxNorm: 216876 2 Tablet(s) PO daily 11/17/2017 Inactive Keflex 500 mg capsule RxNorm: 532877 1 Capsule(s) PO TID and take a probiotic BID x7days 11/07/2017 11/13/2017 Inactive take with probiotic BID amlodipine 5 mg tablet RxNorm: 375898 1 Tablet(s) PO daily 10/06/2018 Active cefdinir 300 mg capsule RxNorm: 680507 1 Capsule(s) PO BID 09/23/2017 Inactive cefdinir 300 mg capsule RxNorm: 115497 1 Capsule(s) PO BID started by Dr. Davila 09/14/2017 09/13/2017 Inactive betamethasone dipropionate 0.05 % topical cream RxNorm: 914568 1 Application TOP BID 08/29/2017 10/09/2017 Inactive mix with clotrimazole and apply to affected area clotrimazole 1 % topical cream RxNorm: 188360 1 Application TOP BID 08/29/2017 10/09/2017 Inactive mix with betamethasone and apply to affected area nystatin 100,000 unit/mL oral suspension RxNorm: 102723 5 Milliliter(s) PO QID 08/29/2017 09/17/2017 Inactive lisinopril 10 mg tablet RxNorm: 430562 1 Tablet(s) PO daily 11/14/2017 Inactive Kenalog 40 mg/mL suspension for injection RxNorm: 1443409 1 Milliliter(s) Inj 07/28/2017 07/28/2017 Inactive nystatin 100,000 unit/mL oral suspension RxNorm: 462480 5 Milliliter(s) PO QID 07/28/2017 08/06/2017 Inactive Keflex 500 mg capsule RxNorm: 638227 1 Capsule(s) PO TID 201708/03/2017 Inactive Flonase Allergy Relief 50 mcg/actuation nasal spray, suspension RxNorm: 9924111 USE ONE SPRAY(S) IN EACH NOSTRIL TWICE DAILY 07/25/2017 No Stop Date Active meclizine 25 mg tablet RxNorm: 033166 TAKE ONE TABLET BY MOUTH THREE TIMES DAILY NEEDED 07/25/2017 No Stop Date Active Voltaren 1 % topical gel RxNorm: 817493 1 Application TOP QID as needed 06/20/2017 No Stop Date Active Zithromax Z-Dylan 250 mg tablet RxNorm: 852433 1 Tablet(s) PO UD 06/20/2017 07/27/2017 Inactive z pack as directed Keflex 500 mg capsule RxNorm: 387291 1 Capsule(s) PO TID 201706/01/2017 Inactive Zithromax Z-Dylan 250 mg tablet RxNorm: 768278 1 Tablet(s) PO UD 04/27/2017 06/19/2017 Inactive z pack as directed lisinopril 10 mg tablet RxNorm: 556095 1 Tablet(s) PO daily 07/22/2017 Inactive Lipitor 10 mg tablet RxNorm: 855953 1 Tablet(s) PO QHS 201711/06/2017 Inactive Zithromax Z-Dylan 250 mg tablet RxNorm: 874862 1 Tablet(s) PO UD 02/15/2017 04/26/2017 Inactive z pack as directed meclizine 25 mg tablet RxNorm: 154912 TAKE ONE TABLET BY MOUTH THREE TIMES DAILY NEEDED 01/23/2017 07/24/2017 Inactive Zithromax Z-Dylan 250 mg tablet RxNorm: 578018 1 Tablet(s) PO UD 01/05/2017 02/14/2017 Inactive z pack as directed losartan 50 mg tablet RxNorm: 475037 1 Tablet(s) PO daily 201604/10/2017 Inactive amlodipine 5 mg tablet RxNorm: 295324 1 Tablet(s) PO daily 10/11/2017 Inactive Zithromax Z-Dylan 250 mg tablet RxNorm: 504844 1 Tablet(s) PO UD 12/16/2016 01/04/2017 Inactive z pack as directed Zyrtec 10 mg tablet RxNorm: 5289091 1 Tablet(s) PO daily 12/1601/14/2017 Inactive Lipitor 10 mg tablet RxNorm: 266674 1 Tablet(s) PO QHS 201602/22/2017 Inactive Zithromax Z-Dylan 250 mg tablet RxNorm: 439996 1 Tablet(s) PO UD 09/27/2016 12/15/2016 Inactive z pack as directed Lipitor 10 mg tablet RxNorm: 009193 1 Tablet(s) PO QHS 201610/25/2016 Inactive guaifenesin 400 mg tablet RxNorm: 979066 1 Tablet(s) PO BID as needed 08/04/2016 No Stop Date Active cefdinir 300 mg capsule RxNorm: 738728 1 Capsule(s) PO BID started by Dr. Davila 08/04/2016 08/13/2016 Inactive amlodipine 10 mg tablet RxNorm: 035574 1 Tablet(s) PO daily 07/201612/21/2016 Inactive Keflex 500 mg capsule RxNorm: 121428 1 Capsule(s) PO TID 201607/27/2016 Inactive Xanax 0.25 mg tablet RxNorm: 164468 1 Tablet(s) PO TID as needed anxiety 07/01/2016 08/27/2016 Inactive Zyrtec 10 mg tablet RxNorm: 4663572 1 Tablet(s) PO daily 07/0107/30/2016 Inactive amlodipine 5 mg tablet RxNorm: 927996 1 Tablet(s) PO daily 06/201607/30/2016 Inactive Keflex 500 mg capsule RxNorm: 571878 1 Capsule(s) PO TID 201607/03/2016 Inactive Keflex 500 mg capsule RxNorm: 037689 1 Capsule(s) PO TID 201606/23/2016 Inactive Keflex 500 mg capsule RxNorm: 575513 1 Capsule(s) PO TID 201606/30/2016 Inactive Flonase Allergy Relief 50 mcg/actuation nasal spray, suspension RxNorm: 4046077 USE ONE SPRAY(S) IN EACH NOSTRIL TWICE DAILY 06/20/2016 05/15/2017 Inactive amlodipine 10 mg tablet RxNorm: 161903 1 Tablet(s) PO daily 04/201606/28/2016 Inactive Lipitor 10 mg tablet RxNorm: 295051 1 Tablet(s) PO QHS 201608/14/2016 Inactive Flonase Allergy Relief 50 mcg/actuation nasal spray, suspension RxNorm: 1135668 USE ONE SPRAY(S) IN EACH NOSTRIL TWICE DAILY 04/18/2016 05/17/2016 Inactive cephalexin 500 mg capsule RxNorm: 369830 1 Capsule(s) PO TID 04/05/2016 Inactive take with probiotics BID amlodipine 10 mg tablet RxNorm: 976494 1 Tablet(s) PO daily 02/201605/29/2016 Inactive Bactroban 2 % topical cream RxNorm: 381109 1 Application TOP BID 03/30/2016 04/08/2016 Inactive Zithromax Z-Dylan 250 mg tablet RxNorm: 166113 1 Tablet(s) PO UD 03/10/2016 05/15/2016 Inactive z pack as directed Keflex 500 mg capsule RxNorm: 829160 1 Capsule(s) PO TID 201502/25/2016 Inactive take with probiotics BID acyclovir 800 mg tablet RxNorm: 817344 1 Tablet(s) PO TID 01/2402/21/2016 Inactive Zithromax Z-Dylan 250 mg tablet RxNorm: 724786 1 Tablet(s) PO UD 01/19/2016 01/24/2016 Inactive z pack Flonase Allergy Relief 50 mcg/actuation nasal spray, suspension RxNorm: 8413262 USE ONE SPRAY(S) IN EACH NOSTRIL TWICE DAILY 12/28/2015 02/25/2016 Inactive Kenalog 40 mg/mL suspension for injection RxNorm: 3447165 Milliliter(s) Inj 12/18/2015 12/18/2015 Inactive Keflex 500 mg capsule RxNorm: 842864 1 Capsule(s) PO TID 201512/24/2015 Inactive Zithromax Z-Dylan 250 mg tablet RxNorm: 384801 1 Tablet(s) PO UD 12/09/2015 12/23/2015 Inactive z pack meclizine 25 mg tablet RxNorm: 331308 1 Tablet(s) PO TID as needed 12/09/2015 12/08/2015 Inactive meclizine 25 mg tablet RxNorm: 071153 1 Tablet(s) PO TID as needed 12/09/2015 02/26/2016 Inactive Keflex 500 mg capsule RxNorm: 287557 1 Capsule(s) PO TID 201511/22/2015 Inactive Cipro 500 mg tablet RxNorm: 381782 1 Tablet(s) PO BID 201511/13/2015 Inactive Keflex 500 mg capsule RxNorm: 379639 1 Capsule(s) PO TID 201510/30/2015 Inactive Xanax 0.25 mg tablet RxNorm: 381833 1 Tablet(s) PO TID as needed anxiety 09/18/2015 11/13/2015 Inactive Keflex 500 mg capsule RxNorm: 015560 1 Capsule(s) PO TID 201508/19/2015 Inactive losartan 50 mg tablet RxNorm: 073197 1 Tablet(s) PO daily 201507/07/2015 Inactive Pepcid 20 mg tablet RxNorm: 563954 1 Tablet(s) PO BID 201507/07/2015 Inactive Pepcid 20 mg tablet RxNorm: 247597 1 Tablet(s) PO BID 201501/31/2016 Inactive losartan 50 mg tablet RxNorm: 816907 1 Tablet(s) PO daily 201501/31/2016 Inactive prednisone 20 mg tablet RxNorm: 858290 2 Tablet(s) PO daily 06/22/2015 Inactive prednisone 20 mg tablet RxNorm: 928265 2 Tablet(s) PO daily 12/23/2015 Inactive Diflucan 100 mg tablet RxNorm: 145862 TAKE ONE TABLET BY MOUTH ONCE DAILY 06/12/2015 12/23/2015 Inactive Zithromax Z-Dylan 250 mg tablet RxNorm: 908646 1 Tablet(s) PO UD 06/05/2015 07/06/2015 Inactive z pack amlodipine 5 mg tablet RxNorm: 715266 1 Tablet(s) PO daily 03/29/2016 Inactive Zetia 10 mg tablet RxNorm: 316483 1 Tablet(s) PO daily 201506/14/2015 Inactive valsartan 160 mg tablet RxNorm: 312246 1 Tablet(s) PO daily 07/07/2015 Inactive Lipitor 10 mg tablet RxNorm: 017178 1 Tablet(s) PO QHS 201505/18/2015 Inactive Lipitor 10 mg tablet RxNorm: 650629 1 Tablet(s) PO QHS 201504/27/2015 Inactive Zithromax 250 mg tablet RxNorm: 608876 Tablet(s) PO UD 201504/28/2015 Inactive Keflex 500 mg capsule RxNorm: 224841 1 Capsule(s) PO TID 201503/22/2015 Inactive Keflex 500 mg capsule RxNorm: 158866 1 Capsule(s) PO TID 201504/01/2015 Inactive Xanax 0.25 mg tablet RxNorm: 765216 1 Tablet(s) PO TID as needed anxiety 03/12/2015 07/04/2016 Inactive carvedilol 25 mg tablet RxNorm: 874837 1 Tablet(s) PO BID 03/1201/31/2016 Inactive amlodipine 5 mg tablet RxNorm: 691887 1 Tablet(s) PO BID 201505/18/2015 Inactive Diflucan 100 mg tablet RxNorm: 791126 1 Tablet(s) PO daily 03/21/2015 Inactive Diflucan 100 mg tablet RxNorm: 926015 1 Tablet(s) PO daily 02/14/2015 Inactive Diflucan 100 mg tablet RxNorm: 411483 1 Tablet(s) PO daily 06/201401/05/2015 Inactive Diflucan 100 mg tablet RxNorm: 982857 1 Tablet(s) PO daily 06/201412/31/2014 Inactive nystatin 100,000 unit/mL oral suspension RxNorm: 854576 5 Milliliter(s) PO QID 12/24/2014 06/14/2015 Inactive nystatin 100,000 unit/mL oral suspension RxNorm: 398306 5 Milliliter(s) PO QID 12/24/2014 12/23/2014 Inactive Zithromax 250 mg tablet RxNorm: 032017 1 Tablet(s) PO daily 12/19/2014 Inactive Zithromax 250 mg tablet RxNorm: 325930 1 Tablet(s) PO daily 12/14/2014 Inactive Flonase Allergy Relief 50 mcg/actuation nasal spray, suspension RxNorm: 1 [place] NASAL BID 12/11/2014 12/10/2014 Inactive Flonase Allergy Relief 50 mcg/actuation nasal spray, suspension RxNorm: 3990487 1 [place] NASAL BID 12/11/20142015 Inactive amlodipine 5 mg tablet RxNorm: 440017 2 Tablet(s) PO daily 11/13/2014 Inactive amlodipine 5 mg tablet RxNorm: 269267 2 Tablet(s) PO daily 03/11/2015 Inactive Lotrisone 1 %-0.05 % topical cream RxNorm: 743095 1 TOP BID until healed 10/17/2014 10/30/2014 Inactive Lotrisone 1 %-0.05 % topical cream RxNorm: 269774 1 TOP BID until healed 10/16/2014 10/16/2014 Inactive Lotrisone 1 %-0.05 % topical cream RxNorm: 571324 1 TOP BID until healed 10/06/2014 10/15/2014 Inactive Keflex 500 mg capsule RxNorm: 704266 1 Capsule(s) PO TID 201408/11/2014 Inactive Keflex 500 mg capsule RxNorm: 811234 1 Capsule(s) PO TID 201408/18/2014 Inactive clotrimazole 1 % topical solution RxNorm: 941600 1 Drop(s) TOP BID No Start Date Active Vitamin D3 5,000 unit tablet RxNorm: 051099 1 Tablet(s) PO daily No Start Date Active guaifenesin 400 mg tablet RxNorm: 704714 1 Tablet(s) PO BID as needed No Start Date 08/03/2016 Inactive Lotrisone 1 %-0.05 % topical cream RxNorm: 299734 1 TOP BID until healed No Start Date 10/05/2014 Inactive lisinopril 40 mg tablet RxNorm: 084697 1 Tablet(s) PO daily No Start Date 05/18/2015 Inactive amlodipine 5 mg tablet RxNorm: 732519 1 Tablet(s) PO daily No Start Date 11/13/2014 Inactive indapamide 1.25 mg tablet RxNorm: 700393 1 Tablet(s) PO daily No Start Date 01/31/2016 Inactive aspirin 81 mg tablet RxNorm: 409303 1 Tablet(s) PO daily No Start Date 02/07/2017 Inactive Medication Administered Medication Codes Instructions Start Date Status Kenalog 40 mg/mL suspension for injection RxNorm: 1950892 1Milliliter 07/28/2017 No longer Active Kenalog 40 mg/mL suspension for injection RxNorm: 2188203 Milliliter 12/18/2015 No longer Active Immunizations Vaccine Codes Date Status Influenza CVX: 141 11/13/2017 completed Influenza CVX: 141 12/05/2016 completed Influenza CVX: 141 11/26/2015 completed PPD Unknown 06/05/2015 completed Influenza CVX: 141 12/01/2014 completed Influenza CVX: 141 11/27/2012 completed Pneumococcal CVX: 33 11/28/2011 completed Assessments Condition Codes Effective Dates Mixed hyperlipidemia ICD-10: E78.2 ICD-9: 272.2 03/30/2018 Hypo-osmolality and hyponatremia ICD-10: E87.1 ICD-9: 276.1 03/30/2018 Essential (primary) hypertension ICD-10: I10 ICD-9: 401.1 03/30/2018 Other acute sinusitis ICD-10: J01.80 ICD-9: 461.8 02/06/2018 Other allergic rhinitis ICD-10: J30.89 ICD-9: 477.8 02/06/2018 Encounter for screening mammogram for malignant neoplasm of breast ICD-10: Z12.31 ICD-9: V76.10 12/29/2017 VACCIN FOR INFLUENZA ICD-10: Z23 ICD-9: V04.81 11/13/2017 Chronic maxillary sinusitis ICD-10: J32.0 ICD-9: 473.0 11/13/2017 Other abnormal glucose ICD-10: R73.09 ICD-9: 790.29 11/13/2017 Tinea corporis ICD-10: B35.4 ICD-9: 110.5 08/29/2017 Acute recurrent maxillary sinusitis ICD-10: J01.01 ICD-9: 461.0 07/28/2017 Pain in left knee ICD-10: M25.562 ICD-9: 719.46 06/20/2017 Pain in right knee ICD-10: M25.561 ICD-9: 719.46 06/20/2017 Otalgia, bilateral ICD-10: H92.03 ICD-9: 388.70 06/20/2017 Gastro-esophageal reflux disease without esophagitis ICD-10 : K21.9 ICD-9: 530.81 05/26/2017 Encounter for general adult medical examination with abnormal findings ICD-10: Z00.01 ICD-9: V70.0 02/08/2017 Dysuria ICD-10: R30.0 ICD-9: 788.1 08/15/2016 Otalgia, right ear ICD-10: H92.01 ICD-9: 388.70 07/21/2016 Essential (primary) hypertension ICD-10: I10 ICD-9: 401.9 [...] For Visit Effective Dates Notes sinus congestion 02/06/2018 sinus congestion 12/08/2017 hypertension [...] Observation Code Item Item Code Result Date %Hba1C Emn244 % HbA1c 16278-4 6.5 % 12/01/2016 %Hba1C Xnn786 Gluc Ave 140 mg/dL 12/01/2016 Lipid Ord30 [...] 35.4 % 04/12/2016 Cbc With Differential Ord2 [place]% 13.3 % 04/12/2016 Cbc With Differential Ord2 MCH 31.3 pg 04/12/2016 Cbc With Differential Ord2 MCHC 33.5 pg 04/12/2016 Cbc With Differential Ord2 Eos% 1.6 % 04/12/2016 Cbc With Differential Ord2 PLT 209 K/ul 04/12/2016 Cbc With Differential Ord2 Baso% 0.5 % 04/12/2016 Cbc With Differential Ord2 Neut ABS# 3.95 K/ul 04/12/2016 Cbc With Differential Ord2 RDW 13.7 % 04/12/2016 Cbc With Differential Ord2 Lymph ABS# 2.85 K/ul 04/12/2016 Cbc With Differential Ord2 [place] ABS# 1.1 K/ul 04/12/2016 Cbc With Differential Ord2 Eos ABS# 0.1 K/ul 04/12/2016 Cbc With Differential Ord2 Baso ABS# 0.0 K/ul 04/12/2016 Comp Metabolic Bbl022 NA 129 mEq/L 04/12/2016 Comp Metabolic Ozq638 K 4.0 mEq/L 04/12/2016 Comp Metabolic Jsk920 CL 93 mEq/L 04/12/2016 Comp Metabolic Yim983 CO2 29.0 mEq/L 04/12/2016 Comp Metabolic Thw607 ANION GAP 11 04/12/2016 Comp Metabolic Kwu826 GLUCOSE 100 mg/dL 04/12/2016 Comp Metabolic Cgz418 Creat 1.0 mg/dL 04/12/2016 Comp Metabolic Yvf834 eGFR 55 ml/min/1.73m2 04/12/2016 Comp Metabolic Epz853 BUN 19 mg/dL 04/12/2016 Comp Metabolic Qhe840 B/C Ratio 18.8 Ratio 04/12/2016 Comp Metabolic Brp927 CALCIUM 9.3 mg/dL 04/12/2016 Comp Metabolic Iao763 ALK PHOS 38 U/L 04/12/2016 Comp Metabolic Qui744 AST(SGOT) 17 U/L 04/12/2016 Comp Metabolic Lcu494 ALT(SGPT) 11 U/L 04/12/2016 Comp Metabolic Pog955 BILI T 1.0 mg/dL 04/12/2016 Comp Metabolic Lxz227 ALBUMIN 4.2 g/dL 04/12/2016 Comp Metabolic Rkl279 TPRO 6.6 g/dL 04/12/2016 Comp Metabolic Dnr258 GLOB 2.4 g/dL 04/12/2016 Comp Metabolic Vis459 A/G Ratio 1.8 Ratio 04/12/2016 Comp Metabolic Yik617 Osmo 261 mOsmo 04/12/2016 Lipid Ord30 CHOL 265 mg/dL 04/12/2016 Lipid Ord30 HDL 42.0 mg/dl 04/12/2016 Lipid Ord30 TRIG 246 mg/dL 04/12/2016 Lipid Ord30 LDL 174 mg/dL 04/12/2016 Lipid Ord30 C/HDL 6.3 Ratio 04/12/2016 Tsh Ord6 hTSH II 2.49 uIU/mL 04/12/2016 Tsh Ord6 hTSH II 1.83 uIU/mL 06/12/2015 Comp Metabolic Brw286 NA 137 mEq/L 06/12/2015 Comp Metabolic Erj960 K 4.4 mEq/L 06/12/2015 Comp Metabolic Qnj448 CL 103 mEq/L 06/12/2015 Comp Metabolic Irk845 CO2 27.0 mEq/L 06/12/2015 Comp Metabolic Slf989 ANION GAP 11 06/12/2015 Comp Metabolic Cqu596 GLUCOSE 87 mg/dL 06/12/2015 Comp Metabolic Smq558 Creat 1.3 mg/dL 06/12/2015 Comp Metabolic Svm943 eGFR 43 ml/min/1.73m2 06/12/2015 Comp Metabolic Fgg749 BUN 32 mg/dL 06/12/2015 Comp Metabolic Jqk876 B/C Ratio 25.4 Ratio 06/12/2015 Comp Metabolic Pnk490 CALCIUM 9.5 mg/dL 06/12/2015 Comp Metabolic Osv340 ALK PHOS 36 U/L 06/12/2015 Comp Metabolic Xfr763 AST(SGOT) 16 U/L 06/12/2015 Comp Metabolic Bfx957 ALT(SGPT) 17 U/L 06/12/2015 Comp Metabolic Znz933 BILI T 1.0 mg/dL 06/12/2015 Comp Metabolic Zhn528 ALBUMIN 4.1 g/dL 06/12/2015 Comp Metabolic Poy145 TPRO 6.5 g/dL 06/12/2015 Comp Metabolic Bdt595 GLOB 2.5 g/dL 06/12/2015 Comp Metabolic Laq360 A/G Ratio 1.7 Ratio 06/12/2015 Comp Metabolic Vmu265 Osmo 280 mOsmo 06/12/2015 Lipid Ord30 CHOL [...] 30.6 pg 06/12/2015 Cbc With Differential Ord2 [place]% 11.0 % 06/12/2015 Cbc With Differential Ord2 [...] 1.96 K/ul 06/12/2015 Cbc With Differential Ord2 [place] ABS# 0.9 K/ul 06/12/2015 Cbc With Differential [...] 94.5 fl 03/12/2015 Cbc With Differential Ord2 [place]% 10.7 % 03/12/2015 Cbc With Differential Ord2 MCH 30.3 pg 03/12/2015 Cbc With Differential Ord2 Eos% 1.0 % 03/12/2015 Cbc With Differential Ord2 MCHC 32.1 pg 03/12/2015 Cbc With Differential Ord2 PLT 244 K/ul 03/12/2015 Cbc With Differential Ord2 Baso% 0.2 % 03/12/2015 Cbc With Differential Ord2 RDW 14.2 % 03/12/2015 Cbc With Differential Ord2 Neut ABS# 6.04 K/ul 03/12/2015 Cbc With Differential Ord2 Lymph ABS# 2.00 K/ul 03/12/2015 Cbc With Differential Ord2 [place] ABS# 1.0 K/ul 03/12/2015 Cbc With Differential Ord2 Eos ABS# 0.1 K/ul 03/12/2015 Cbc With Differential Ord2 Baso ABS# 0.0 K/ul 03/12/2015 Cbc With Differential Ord2 New Analyzer Notice Please note new ref ranges starting 03-11-2015 due to implemntation of new five part differential hematolgy analyzer. 03/12/2015 Comp Metabolic Vyd605 NA 139 mEq/L 03/12/2015 Comp Metabolic Gsf481 K 4.2 mEq/L 03/12/2015 Comp Metabolic Opl916 CL 101 mEq/L 03/12/2015 Comp Metabolic Udc664 CO2 28.0 mEq/L 03/12/2015 Comp Metabolic Xxv702 ANION GAP 14 03/12/2015 Comp Metabolic Eun849 GLUCOSE 78 mg/dL 03/12/2015 Comp Metabolic Psm104 Creat 1.1 mg/dL 03/12/2015 Comp Metabolic Nov983 eGFR 51 ml/min/1.73m2 03/12/2015 Comp Metabolic Pof290 BUN 17 mg/dL 03/12/2015 Comp Metabolic Pom968 B/C Ratio 15.6 Ratio 03/12/2015 Comp Metabolic Dnr141 CALCIUM 9.4 mg/dL 03/12/2015 Comp Metabolic Pvu485 ALK PHOS 46 U/L 03/12/2015 Comp Metabolic Mjp141 AST(SGOT) 16 U/L 03/12/2015 Comp Metabolic Okv716 ALT(SGPT) 12 U/L 03/12/2015 Comp Metabolic Wns957 BILI T 0.8 mg/dL 03/12/2015 Comp Metabolic Twq541 ALBUMIN 4.1 g/dL 03/12/2015 Comp Metabolic Tbg791 TPRO 6.6 g/dL 03/12/2015 Comp Metabolic Qec568 GLOB 2.6 g/dL 03/12/2015 Comp Metabolic Cer677 A/G Ratio 1.6 Ratio 03/12/2015 Comp Metabolic Qkn920 Osmo 278 mOsmo 03/12/2015 Lipid Ord30 CHOL [...] hTSH II 3.15 uIU/mL 12/01/2014 Comp Metabolic Npf569 NA 132 mEq/L 12/01/2014 Comp Metabolic Cjy492 K 4.4 mEq/L 12/01/2014 Comp Metabolic Mki825 CL 99 mEq/L 12/01/2014 Comp Metabolic Gqv351 CO2 27.0 mEq/L 12/01/2014 Comp Metabolic Njr092 ANION GAP 10 12/01/2014 Comp Metabolic Mhx683 GLUCOSE 86 mg/dL 12/01/2014 Comp Metabolic Apv613 Creat 1.2 mg/dL 12/01/2014 Comp Metabolic Dii407 eGFR 46 ml/min/1.73m2 12/01/2014 Comp Metabolic Fte392 BUN 32 mg/dL 12/01/2014 Comp Metabolic Dto437 B/C Ratio 27.1 Ratio 12/01/2014 Comp Metabolic Bnp228 CALCIUM 9.4 mg/dL 12/01/2014 Comp Metabolic Qpo089 ALK PHOS 35 U/L 12/01/2014 Comp Metabolic Dnc211 AST(SGOT) 14 U/L 12/01/2014 Comp Metabolic Kyu750 ALT(SGPT) 13 U/L 12/01/2014 Comp Metabolic Aji907 BILI T 0.8 mg/dL 12/01/2014 Comp Metabolic Qfq068 ALBUMIN 4.0 g/dL 12/01/2014 Comp Metabolic Yic303 TPRO 6.8 g/dL 12/01/2014 Comp Metabolic Zzp853 GLOB 2.8 g/dL 12/01/2014 Comp Metabolic Jhz271 A/G Ratio 1.4 Ratio 12/01/2014 Comp Metabolic Xfk971 Osmo 271 mOsmo 12/01/2014 Review of Systems System Result Effective Dates Constitutional recent illness 02/06/2018 Constitutional No chills [...] FLU VACC PRSV FREE INC ANTIG CPT-4: 12601 11/13/2017 ADMIN INFLUENZA VIRUS VAC CPT-4: G0008 11/13/2017 TRIAMCINOLONE ACET INJ NOS CPT-4: J3301 07/28/2017 PPPS, SUBSEQ VISIT CPT -4: G0439 02/08/2017 URINALYSIS NONAUTO W/O SCOPE CPT-4: 99423 08/15/2016 PPPS, SUBSEQ VISIT CPT -4: G0439 02/01/2016 TRIAMCINOLONE ACET INJ NOS CPT-4: J3301 12/18/2015 ADMIN INFLUENZA VIRUS VAC CPT-4: G0008 11/26/2015 FLU VACC 4 GISELA 3 YRS PLUS IM Formatting Model/CDA Sections, Assigned to/Malina Mazariegos SNOMED CT: 86764223 CPT-4: 92678Twkjmhy 11/26/2015 URINALYSIS NONAUTO W/O SCOPE CPT-4: 96863 11/20/2015 URINALYSIS NONAUTO W/O SCOPE CPT-4: 73054 11/13/2015 IMMUNIZATION ADMIN CPT -4: 99464 12/01/2014 FLU VACC 4 GISELA 3 YRS PLUS IM Formatting Model/CDA Sections, Assigned to/Malina Mazariegos SNOMED CT: 58856362 CPT-4: 85818Twvvkvk 12/01/2014 Vital Signs Date Vital 02/06/2018 Blood Pressure 1: 142/60 Code : 8480-6 BMI: 25.3 Code : 62590-2 Heart Rate 1 : 68 bpm Height: 5'1" SpO2: 99% Temperature: 37.0 (C) / 98.6 (F) Weight: 134 lbs 12/08/2017 Blood Pressure 1: 140/52 Code : 8480-6 BMI: 25.5 Code : 77228-2 Heart Rate 1 : 77 bpm Height: 5'1" SpO2: 96% Temperature: 36.6 (C) / 97.9 (F) Weight: 135 lbs 11/13/2017 Blood Pressure 1: 134/54 Code : 8480-6 BMI: 24.8 Code : 26995-0 Heart Rate 1 : 73 bpm Height: 5'1" SpO2: 98% Weight: 131 lbs 08/29/2017 Blood Pressure 1: 162/64 Code : 8480-6 BMI: 24.9 Code : 45721-6 Heart Rate 1 : 61 bpm Height: 5'1" SpO2: 96% Weight: 132 lbs 07/28/2017 Blood Pressure 1: 148/62 Code : 8480-6 BMI: 25.1 Code : 88908-4 Heart Rate 1 : 67 bpm Height: 5'1" SpO2: 99% Temperature: 36.4 (C) / 97.5 (F) Weight: 133 lbs 06/20/2017 Blood Pressure 1: 140/52 Code : 8480-6 BMI: 25.3 Code : 59503-6 Heart Rate 1 : 64 bpm Height: 5'1" SpO2: 98% Weight: 134 lbs 05/26/2017 Blood Pressure 1: 140/56 Code : 8480-6 BMI: 25.7 Code : 32621-2 Heart Rate 1 : 74 bpm Height: 5'1" SpO2: 95% Weight: 136 lbs 04/24/2017 Blood Pressure 1: 140/68 Code : 8480-6 BMI: 24.6 Code : 22434-5 Heart Rate 1 : 67 bpm Height: 5'1" SpO2: 97% Weight: 130 lbs 02/08/2017 Blood Pressure 1: 134/76 Code : 8480-6 BMI: 24.9 Code : 20958-3 Heart Rate 1 : 67 bpm Height: 5'1" SpO2: 98% Waist Measure (cm): 77796 cm Weight: 132 lbs 12/22/2016 Blood Pressure 1: 156/80 Code : 8480-6 BMI: 24.2 Code : 60209-1 Heart Rate 1 : 65 bpm Height: 5'1" SpO2: 98% Weight: 128 lbs 12/16/2016 Blood Pressure 1: 138/62 Code : 8480-6 BMI: 23.8 Code : 93033-1 Heart Rate 1 : 63 bpm Height: 5'1" SpO2: 98% Weight: 126 lbs 08/15/2016 Blood Pressure 1: 130/60 Code : 8480-6 BMI: 25.3 Code : 31753-6 Heart Rate 1 : 72 bpm Height: 5'1" SpO2: 95% Weight: 134 lbs 08/02/2016 Blood Pressure 1: 160/62 Code : 8480-6 BMI: 25.3 Code : 86539-0 Heart Rate 1 : 67 bpm Height: 5'1" SpO2: 97% Weight: 134 lbs 07/21/2016 Blood Pressure 1: 148/66 Code : 8480-6 BMI: 25.9 Code : 59299-8 Heart Rate 1 : 71 bpm Height: 5'1" SpO2: 97% Temperature: 36.8 (C) / 98.2 (F) Weight: 137 lbs 07/01/2016 Blood Pressure 1: 142/72 Code : 8480-6 BMI: 26.5 Code : 74085-8 Heart Rate 1 : 68 bpm Height: 5'1" SpO2: 94% Weight: 140 lbs 05/16/2016 Blood Pressure 1: 162/76 Code : 8480-6 Blood Pressure 1: 138/68 Code: 8480-6 BMI: 25.7 Code: 43725-8 Heart Rate 1: 58 bpm Height: 5'1" SpO2: 98% Weight: 136 lbs 04/06/2016 Blood Pressure 1: 162/72 Code : 8480-6 Blood Pressure 1: 138/74 Code: 8480-6 BMI: 25.7 Code: 73312-7 Heart Rate 1: 75 bpm Height: 5'1" SpO2: 97% Weight: 136 lbs 03/30/2016 Blood Pressure 1: 188/80 Code : 8480-6 BMI: 26.3 Code : 24806-4 Heart Rate 1 : 75 bpm Height: 5'1" SpO2: 98% Weight: 139 lbs 02/01/2016 Blood Pressure 1: 140/72 Code : 8480-6 BMI: 25.3 Code : 80117-9 Heart Rate 1 : 65 bpm Height: 5'1" SpO2: 97% Waist Measure (cm): 84 cm Weight: 134 lbs 01/25/2016 Blood Pressure 1: 140/74 Code : 8480-6 BMI: 25.1 Code : 15679-7 Heart Rate 1 : 66 bpm Height: 5'1" SpO2: 98% Weight: 133 lbs 12/24/2015 Blood Pressure 1: 142/66 Code : 8480-6 BMI: 24.9 Code : 11136-2 Heart Rate 1 : 54 bpm Height: 5'1" SpO2: 97% Weight: 132 lbs 12/18/2015 Blood Pressure 1: 152/62 Code : 8480-6 BMI: 25.5 Code : 53856-9 Heart Rate 1 : 66 bpm Height: 5'1" SpO2: 96% Weight: 135 lbs 12/11/2015 Blood Pressure 1: 136/54 Code : 8480-6 Heart Rate 1: 72 bpm SpO2: 98% Weight: 137 lbs 11/26/2015 Blood Pressure 1: 142/70 Code : 8480-6 BMI: 25.3 Code : 95085-0 Heart Rate 1 : 64 bpm Height: 5'1" SpO2: 97% Weight: 134 lbs 11/20/2015 Blood Pressure 1: 154/70 Code : 8480-6 Heart Rate 1: 65 bpm SpO2: 98% 10/23/2015 Blood Pressure 1: 138/62 Code : 8480-6 Heart Rate 1: 55 bpm SpO2: 98% 10/21/2015 Blood Pressure 1: 142/68 Code : 8480-6 BMI: 25.7 Code : 61339-5 Heart Rate 1 : 73 bpm Height: 5'1" SpO2: 98% Weight: 136 lbs 07/15/2015 Blood Pressure 1: 130/60 Code : 8480-6 BMI: 26.6 Code : 42119-0 Heart Rate 1 : 70 bpm Height: 5'1" SpO2: 97% Weight: 141 lbs 06/15/2015 Blood Pressure 1: 118/64 Code : 8480-6 BMI: 24.9 Code : 86721-3 Heart Rate 1 : 66 bpm Height: 5'1" SpO2: 99% Weight: 132 lbs 06/05/2015 Blood Pressure 1: 142/60 Code : 8480-6 Blood Pressure 1: 135/58 Code: 8480-6 Heart Rate 1: 64 bpm SpO2: 99% 05/19/2015 Blood Pressure 1: 146/60 Code : 8480-6 BMI: 27.1 Code : 22105-9 Heart Rate 1 : 66 bpm Height: 5'1" SpO2: 97% Weight: 143 lbs 8 oz 04/24/2015 Blood Pressure 1: 148/58 Code : 8480-6 BMI: 25.9 Code : 37032-0 Heart Rate 1 : 61 bpm Height: 5'1" SpO2: 98% Weight: 137 lbs 03/12/2015 Blood Pressure 1: 140/72 Code : 8480-6 BMI: 25.1 Code : 55889-9 Heart Rate 1 : 68 bpm Height: 5'1" SpO2: 98% Weight: 133 lbs 01/12/2015 Blood Pressure 1: 146/60 Code : 8480-6 BMI: 25.7 Code : 11167-0 Heart Rate 1 : 48 bpm Height: 5'1" SpO2: 97% Weight: 136 lbs 12/11/2014 Blood Pressure 1: 144/56 Code : 8480-6 Blood Pressure 1: 125/65 Code: 8480-6 BMI: 25.1 Code: 96823-0 Heart Rate 1: 56 bpm Height: 5'1" SpO2: 96% Weight: 133 lbs 12/01/2014 Blood Pressure 1: 136/60 Code : 8480-6 Heart Rate 1: 56 bpm SpO2: 96% Weight: 131 lbs 5 oz 08/14/2014 Blood Pressure 1: 132/72 Code : 8480-6 BMI: 25.5 Code : 09266-3 Heart Rate 1 : 73 bpm Height: 5'1" SpO2: 94% Weight: 135 lbs Functional Status No Functional Status data History of Present Illness Symptom Name Status Result Effective Date Notes Location frontal sinuses 02/06/2018 None Quality constant [...] Performer Location Codes Date EST. PATIENT, LEVEL IV Diagnosis: Other acute sinusitis[ICD10: J01.80] Diagnosis: Other allergic rhinitis[ICD10: J30.89] Evelyn Cohen MD, [facility] CPT-4: 86654 02/06/2018 80757 EST. PATIENT, LEVEL III Diagnosis: Other allergic rhinitis[ICD10: J30.89] Diagnosis: Other acute sinusitis[ICD10: J01.80] Evelyn Cohen MD, [facility] CPT-4: 10918 12/08/2017 ([id number]) 72793 EST. PATIENT, LEVEL IV Diagnosis: Essential (primary) hypertension[ICD10: I10] Diagnosis: Chronic maxillary sinusitis[ICD10: J32.0] Diagnosis: Mixed hyperlipidemia[ICD10: E78.2] Diagnosis: Other abnormal glucose[ICD10: R73.09] Berenice Cohen MD, [facility] CPT-4: 23892 11/13/2017 ([id number]) 95547 EST. PATIENT, LEVEL III Diagnosis: Tinea corporis[ICD10: B35.4] Diagnosis: Essential (primary) hypertension[ICD10: I10] Doris Cohen MD, [facility] CPT-4: 03488 08/29/2017 ([id number]) 76402 EST. PATIENT, LEVEL III Diagnosis: Acute recurrent maxillary sinusitis[ICD10: J01.01] Diagnosis: Other allergic rhinitis[ICD10: J30.89] Doris Cohen MD, [facility] CPT-4: 69953 07/28/2017 67595 EST. PATIENT, LEVEL IV Diagnosis: Other acute sinusitis[ICD10: J01.80] Diagnosis: Other allergic rhinitis[ICD10: J30.89] Diagnosis: Otalgia, bilateral[ICD10: H92.03] Diagnosis: Pain in right knee[ICD10: M25.561] Diagnosis: Pain in left knee[ICD10: M25.562] Evelyn Cohen MD, [facility] CPT -4: 30071 06/20/2017 80077 EST. PATIENT, LEVEL IV Diagnosis: Other acute sinusitis[ICD10: J01.80] Diagnosis: Other allergic rhinitis[ICD10: J30.89] Diagnosis: Gastro-esophageal reflux disease without esophagitis[ICD10: K21.9] Evelyn Cohen MD, [facility] CPT-4: 87439 05/26/2017 24761 EST. PATIENT, LEVEL III Diagnosis: Essential (primary) hypertension[ICD10: I10] Evelyn Cohen MD, [facility] CPT-4: 39859 04/24/2017 ([id number]) 58689 EST. PATIENT, LEVEL IV Diagnosis: Essential (primary) hypertension[ICD10: I10] Diagnosis: Other abnormal glucose[ICD10: R73.09] Diagnosis: Mixed hyperlipidemia[ICD10: E78.2] Berenice Cohen MD, [facility] CPT-4: 88282 12/22/2016 22362 EST. PATIENT, LEVEL IV Diagnosis: Other acute sinusitis[ICD10: J01.80] Diagnosis: Other allergic rhinitis[ICD10: J30.89] Evelyn Cohen MD, [facility] CPT-4: 11191 12/16/2016 ([id number]) 44610 EST. PATIENT, LEVEL IV Diagnosis: Essential (primary) hypertension[ICD10: I10] Diagnosis: Mixed hyperlipidemia[ICD10: E78.2] Diagnosis: Dysuria[ICD10: R30.0] Berenice Cohen MD, [facility] CPT-4: 38022 08/15/2016 58761 EST. PATIENT, LEVEL III Diagnosis: Other acute sinusitis[ICD10: J01.80] Diagnosis: Other allergic rhinitis[ICD10: J30.89] Diagnosis: Otalgia, bilateral[ICD10: H92.03] Evelyn Cohen MD, [facility] CPT -4: 78834 08/02/2016 ([id number]) 50870 EST. PATIENT, LEVEL III Diagnosis: Acute recurrent maxillary sinusitis[ICD10: J01.01] Diagnosis: Otalgia, right ear[ICD10: H92.01] Doris Cohen MD, [facility] CPT-4: 87673 07/21/2016 70703 EST. PATIENT, LEVEL III Diagnosis: Dysuria[ICD10: R30.0] Diagnosis: Other allergic rhinitis[ICD10: J30.89] Evelyn Cohen MD, [facility] CPT-4: 94161 07/01/2016 ([id number]) 73521 EST. PATIENT, LEVEL IV Diagnosis: Essential (primary) hypertension[ICD10: I10] Diagnosis: Mixed hyperlipidemia[ICD10: E78.2] Berenice Cohen MD [facility] CPT-4: 03168 05/16/2016 71413 EST. PATIENT, LEVEL III Diagnosis: Mixed hyperlipidemia[ICD10: E78.2] Diagnosis: Essential (primary) hypertension[ICD10: I10] Diagnosis: Laceration without foreign body of left hand, subsequent encounter[ ICD10: S61.412D] Evelyn Cohen MD, [facility] CPT-4: 25881 04/06/2016 ([id number]) 90897 EST. PATIENT, LEVEL III Diagnosis: Essential (primary) hypertension[ICD10: I10] Berenice Cohen MD, [facility] CPT-4: 11277 03/30/2016 ([id number]) 19310 EST. 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 PATIENT, LEVEL III Diagnosis: Essential (primary) hypertension[ICD10: I10] Berenice Cohen MD, [facility] CPT-4: 89644 12/24/2015 89493 EST. PATIENT, LEVEL III Diagnosis: Other acute sinusitis[ICD10: J01.80] Diagnosis: Other allergic rhinitis[ICD10: J30.89] Evelyn Cohen MD, [facility] CPT-4: 97347 12/18/2015 ([id number]) Miscellaneous no charge Diagnosis: Essential (primary) hypertension[ICD10: I10] Evelyn Cohen MD, [facility] CPT-4: 03383 12/11/2015 ([id number]) 35190 EST. PATIENT, LEVEL IV Diagnosis: Essential (primary) hypertension[ICD10: I10] Diagnosis: Other abnormal glucose[ICD10: R73.09] Diagnosis: Encounter for immunization[ICD10: Z23] Berenice Cohen MD, [facility] CPT-4: 65601 11/26/2015 ([id number]) Miscellaneous no charge Diagnosis: Bitten by dog, initial encounter[ICD10: W54.0XXA] Evelyn Cohen MD, [facility] CPT-4: 44528 10/29/2015 ([id number]) Miscellaneous no charge Diagnosis: Essential (primary) hypertension[ICD10: I10] Diagnosis: Bitten by dog, initial encounter[ICD10: W54.0XXA] Evelyn Cohen MD, [facility] CPT-4: 21860 10/23/2015 86616 EST. PATIENT, LEVEL III Diagnosis: Cellulitis of face[ICD10: L03.211] Diagnosis: Bitten by dog, initial encounter[ICD10: W54.0XXA] Evelyn Cohen MD, [facility] CPT-4: 47853 10/21/2015 ([id number]) Miscellaneous no charge Diagnosis: Essential (primary) hypertension[ICD10: I10] Evelyn Cohen MD, [facility] CPT-4: 06061 07/15/2015 ([id number]) 00789 EST. PATIENT, LEVEL IV Diagnosis: Essential (primary) hypertension[ICD10: I10] Diagnosis: Mixed hyperlipidemia[ICD10: E78.2] Diagnosis: Dry mouth, unspecified[ICD10: R68.2] Berenice Cohen MD, [facility] CPT-4: 22973 06/15/2015 ([id number]) Miscellaneous no charge Diagnosis: Essential (primary) hypertension[ICD10: I10] Doris Cohen MD, [facility] CPT-4: 96922 06/05/2015 ([id number]) 62001 EST. PATIENT, LEVEL IV Diagnosis: Mammographic microcalcification found on diagnostic imaging of breast [ICD10: R92.0] Diagnosis: Edema, unspecified[ICD10: R60.9] Diagnosis: Essential (primary) hypertension[ICD10: I10] Berenice Cohen MD, [facility] CPT-4: 59656 05/19/2015 72530 EST. PATIENT, LEVEL IV Diagnosis: Other acute sinusitis[ICD10: J01.80] Diagnosis: Acute nasopharyngitis [common cold][ICD10: J00] Diagnosis: Other allergic rhinitis[ICD10: J30.89] Diagnosis: Localized edema[ICD10: R60.0] Diagnosis: Mixed hyperlipidemia[ICD10: E78.2] Evelyn Cohen MD, [facility] CPT-4: 41346 04/24/2015 ([id number]) 53863 EST. PATIENT, LEVEL IV Diagnosis: Essential (primary) hypertension[ICD10: I10] Diagnosis: Abscess of liver[ICD10: K75.0] Diagnosis: Anemia, unspecified[ICD10: D64.9] Berenice Cohen MD, [facility] CPT-4: 06279 03/12/2015 04448 EST. PATIENT, LEVEL IV Diagnosis: Essential (primary) hypertension[ICD10: I10] Diagnosis: Candidal stomatitis[ICD10: B37.0] Diagnosis: Pain in unspecified knee[ICD10: M25.569] Diagnosis: Edema, unspecified[ICD10: R60.9] Evelyn Cohen MD, [facility] CPT- 4: 79804 01/12/2015 ([id number]) 28202 EST. PATIENT, LEVEL III Diagnosis: Pain in right foot[ICD10: M79.671] Berenice Cohen MD, [facility] CPT-4: 23887 12/11/2014 ([id number]) 27146 EST. PATIENT, LEVEL IV Diagnosis: Abscess of liver[ICD10: K75.0] Diagnosis: Hypo-osmolality and hyponatremia[ICD10: E87.1] Diagnosis: Essential (primary) hypertension[ICD10: I10] Diagnosis: VACCIN FOR INFLUENZA[ICD10: Z23] Berenice Cohen MD, [facility] CPT-4: 21534 12/01/2014 ([id number]) OFFICE VISIT, NEW - LEVEL 4 Diagnosis: ESSENTIAL HYPERTENSION[ICD9: 401.9] Diagnosis: Chronic maxillary sinusitis[ICD9: 473.0] Berenice Cohen MD, [facility] CPT-4: 58897 08/14/2014 Plan of Care Planned Activity Notes Codes Status Date Patient Education: Patient Medication Summary Completed 03/30/2018 Care Plan: Comp Metabolic Pending 03/30/2018 Care Plan: Cbc With Differential Pending 03/30/2018 Care Plan: Tsh Pending 03/30/2018 Care Plan: Lipid Pending 03/30/2018 Appointment: Berenice Cohen WPtel: [facility]5 [facility] (15 min) Moderate 03/28/2018 Appointment: Berenice Cohen WPtel: [phone] [facility] (15 min) Moderate 03/19/2018 Visit [...] allergy spray. 02/06/2018 Appointment: Evelyn West WPtel: [facility]7 [facility] (15 min) Moderate 02/06/2018 Patient Education: Patient Medication Summary Completed 02/06/2018 Patient Education: Patient Medication Summary Completed 12/29/2017 Care Plan: [facility] : 30584-6 Pending 12/11/2017 Visit Plan: Sinusitis - Pt [...] allergy spray. 12/08/2017 Appointment: Evelyn West WPtel: [facility]0 [facility] (15 min) Moderate 12/08/2017 Patient Education: Patient [...] today 11/13/2017 [phone] [place] (15 min) Moderate 11/13/2017 Patient Education: Patient Medication Summary Completed 11/13/2017 Patient Education: Cholesterol Management Completed 11/13/2017 Visit Plan: Tinea-rx sent to patient's pharmacy and instructed on use-keep groin clean/dry -call if symptoms do not resolve or if any worse HTN-elevated today-monitor and home and call if continues to be elevated 08/29/2017 App[facility]ment[phone] (15 min) Moderate 08/29/2017 Patient Education: Patient [...] worse 07/28/2017 Appointment: Doris Sheffield WPtel: [phone] [phone] (30 min) Complex 07/28/2017 Patient Education: [...] not improve. 06/20/2017 Appointment: [phone] (15 min) Moderate 06/20/2017 Patient Education: Patient [...] improving. 05/26/2017 Appointment: Evelyn West WPtel: [phone] [facility] (15 min) Moderate 05/26/2017 Patient Education: [...] concerns. 04/24/2017 Appointment: [phone] (30 min) Complex 04/24/2017 Patient Education: Patient [...] care surrogate. 02/08/2017 Appointment: Evelyn West WPtel: [facility]0 [id number] [place] [address] - Annual Wellness Visit 02/08/2017 Patient Education: [...] vaccine today 12/22/2016 Appointment: Berenice Cohen WPtel: [facility] (15 min) Moderate 12/22/2016 Patient Education: [...] allergy spray. 12/16/2016 Appointment: Evelyn West WPtel: [facility]9 [facility] (30 min) Complex 12/16/2016 Patient Education: Patient Medication Summary Completed 12/16/2016 Appointment: [facility] (15 min) Moderate 11/15/2016 Visit Plan: [...] carbohydrates. 08/15/2016 App[facility]ment: [phone] (15 min) Moderate 08/15/2016 Patient Education: Patient Medication Summary Completed 08/15/2016 Appointment: [phone] (15 min) Moderate 08/05/2016 Visit Plan: Allergies [...] improvement. 08/02/2016 Appointment: Evelyn West WPtel: [phone] [facility] (30 min) Complex 08/02/2016 Patient Education: Patient [...] flushed 07/21/2016 Appointment: Doris Sheffield WPtel: [phone] [phone] (15 min) Moderate 07/21/2016 Patient Education: [...] nightly. 05/16/2016 App[facility]ment: [phone] (15 min) Moderate 05/16/2016 Patient Education: [...] or concerns. 04/06/2016 Appointment: [phone] (10 min) Simple 04/06/2016 Patient Education: Patient [...] twice daily. 03/30/2016 Appointment: Berenice Cohen WPtel: [address] [place], [place] [phone] (15 min) Moderate 03/30/2016 Patient Education: Patient Medication Summary Completed 03/30/2016 Appointment: Berenice Cohen WPtel: [address] [place], [place] [phone] (15 min) Moderate 03/24/2016 Visit Plan: Medicare [...] care surrogate. 02/01/2016 Appointment: Evelyn West WPtel: [facility]3 [facility] [facility] - Annual Wellness Visit 02/01/2016 Patient Education: Patient Medication Summary Completed 02/01/2016 Visit Plan: Apthous ulcer - rx for acyclovir 800mg tid x7 days Sample of Voltaren gel to use on knees tid prn 01/25/2016 Appointment: Berenice Cohen WPtel: [address] [place], [place] [phone] (15 min) Moderate 01/25/2016 Patient Education: Patient [...] home. 12/24/2015 Appointment: Berenice Cohen WPtel: [phone] [facility] (15 min) Moderate 12/24/2015 Patient [...] improvement. 12/18/2015 Appointment: Doris Sheffield WPtel: [phone] [phone] (15 min) Moderate 12/18/2015 Patient Education: [...] meal - 11/26/2015 Appointment: Berenice Cohen WPtel: [phone] [facility] (15 min) Moderate 11/26/2015 Patient [...] pain. 10/21/2015 Appointment: Doris Sheffield WPtel: [phone] [phone] [place] (15 min) Moderate 10/21/2015 Patient [...] mouth spray 06/15/2015 Appointment: Berenice Cohen WPtel: [facility] [place] (15 min) Moderate 06/15/2015 Patient Education: Patient Medication Summary Completed 06/15/2015 Patient Education: Patient Medication Summary Completed 06/12/2015 Appointment: Berenice Cohen WPtel: [facility]5 [facility] [place] (15 min) Moderate 06/11/2015 Appointment: Nurse [...] the day 03/12/2015 Appointment: Berenice Cohen WPtel: [facility]5 [facility] (15 min) Moderate 03/12/2015 Patient Education: Patient [...] appointment with then soon. Pt to try Howe Tekamah rub on the knees to help reduce [...] is sore 12/11/2014 Appointment: Berenice Cohen WPtel: [address] [place], [place] [phone] (15 min) Moderate 12/11/2014 Patient Education: Patient [...] of mouth discomfort not improving. 12/01/2014 Appointment: Vicki Berenice WPtel: [phone] [facility] (15 min) Moderate 12/01/2014 Patient Education: Patient Medication Summary Completed 12/01/2014 Patient Education: Hypertension Completed 12/01/2014 Appointment: Berenice Cohen WPtel: [phone] [facility] (15 min) Moderate 09/15/2014 Visit Plan: [...] not improve. 08/14/2014 Appointment: Berenice Cohen WPtel: [facility]6 [facility] [place] (S) New Patient 08/14/2014 Patient Education: [...] cut back on carbohydrates. prevnar vaccine today increase the amlodipine to 10mg daily [...] foot where it is sore [employer] customer sales advisor will contact you for a colon screen test - it is a colon cancer screening that you will do at home and send in to the customer sales advisor. . No fracture of foot - recommended [...] TWO hours after a meal - try Howe Tekamah on your knee. Decrease Salt in diet. [...] appointment with then soon. Pt to try Howe Tekamah rub on the knees to help reduce [...]
--- OUTSIDE RECORDS SUMMARY | 2018-06-30 14:48 | XMS REPORT | CCD ---
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 Name Role Phone PP Unavailable CCM Unavailable Summary Purpose Interface Exchange Insurance Providers Payer name Policy type / Coverage type Covered democrat ID Effective Begin Date Effective End Date [employer] Commercial Insurance [id number] Unknown Unknown Family history Son Diagnosis Age [...] Unknown Retired 08/14/[address]: 768757146 Never smoker 08/14/[address]: 555522184 Never drinks alcohol 08/14/2014 Allergies, Adverse Reactions, Alerts Substance Reaction Codes Entered Date Inactivated Date Status AUGMENTIN hives, RxNorm: 738636 08/14/2014 No Inactive Date Active [id number] REDUCTASE INHIBITORS myalgias, Unknown 2015 No Inactive Date Active Past Medical History Illness Codes Condition Status Onset Date Resolved Date Other acute sinusitis ICD-9: 461.8 ICD-10: J01.80 Active 12/17/2015 Unknown Other allergic rhinitis ICD-9: 477.8 ICD-10: J30.89 Active 12/17/2015 Unknown Encounter for screening mammogram for malignant neoplasm of breast ICD-9: V76.10 ICD-10: Z12.31 Active 12/29/2017 Unknown Acute recurrent maxillary sinusitis ICD-9: 461.0 ICD-10: J01.01 Active 07/21/2016 Unknown Chronic maxillary sinusitis ICD-9: 473.0 ICD-10: J32.0 Active 11/13/2017 Unknown Essential (primary) hypertension ICD-9: 401.1 ICD-10: [...] Problems Condition Codes Effective Dates Condition Status Other acute sinusitis ICD-9: 461.8 ICD-10: J01.80 12/17/2015 Active Other allergic rhinitis ICD-9: 477.8 ICD-10: J30.89 12/17/2015 Active Encounter for screening mammogram for malignant neoplasm of breast ICD-9: V76.10 ICD-10: Z12.31 12/29/2017 Active Acute recurrent maxillary sinusitis ICD-9: 461.0 ICD-10: J01.01 07/21/2016 Active Chronic maxillary sinusitis ICD-9: 473.0 ICD-10: J32.0 11/13/2017 Active Essential (primary) hypertension ICD-9: 401.1 ICD-10: [...] Instructions Zithromax Z-Dylan 250 mg tablet RxNorm: 023492 1 Tablet(s) PO UD 02/06/2018 No Stop Date Active Zyrtec 10 mg tablet RxNorm: 4746406 1 Tablet(s) PO daily 12/0801/06/2018 Inactive Zithromax Z-Dylan 250 mg tablet RxNorm: 449958 1 Tablet(s) PO UD 12/08/2017 02/05/2018 Inactive Lipitor 10 mg tablet RxNorm: 370027 1 Tablet(s) PO QHS 201706/21/2018 Active Lipitor 10 mg tablet RxNorm: 673107 TAKE 1 TABLET BY MOUTH EVERY DAY AT BEDTIME 11/24/2017 No Stop Date Active lisinopril 10 mg tablet RxNorm: 985844 1 Tablet(s) PO daily 08/17/2018 Active prednisone 20 mg tablet RxNorm: 791286 2 Tablet(s) PO daily 11/17/2017 Inactive Keflex 500 mg capsule RxNorm: 394219 1 Capsule(s) PO TID and take a probiotic BID x7days 11/07/2017 11/13/2017 Inactive take with probiotic BID amlodipine 5 mg tablet RxNorm: 240789 1 Tablet(s) PO daily 10/06/2018 Active cefdinir 300 mg capsule RxNorm: 070011 1 Capsule(s) PO BID 09/23/2017 Inactive cefdinir 300 mg capsule RxNorm: 404267 1 Capsule(s) PO BID started by Dr. Davila 09/14/2017 09/13/2017 Inactive betamethasone dipropionate 0.05 % topical cream RxNorm: 852182 1 Application TOP BID 08/29/2017 10/09/2017 Inactive mix with clotrimazole and apply to affected area clotrimazole 1 % topical cream RxNorm: 520811 1 Application TOP BID 08/29/2017 10/09/2017 Inactive mix with betamethasone and apply to affected area nystatin 100,000 unit/mL oral suspension RxNorm: 038759 5 Milliliter(s) PO QID 08/29/2017 09/17/2017 Inactive lisinopril 10 mg tablet RxNorm: 602518 1 Tablet(s) PO daily 11/14/2017 Inactive Kenalog 40 mg/mL suspension for injection RxNorm: 9458309 1 Milliliter(s) Inj 07/28/2017 07/28/2017 Inactive nystatin 100,000 unit/mL oral suspension RxNorm: 087289 5 Milliliter(s) PO QID 07/28/2017 08/06/2017 Inactive Keflex 500 mg capsule RxNorm: 327777 1 Capsule(s) PO TID 201708/03/2017 Inactive Flonase Allergy Relief 50 mcg/actuation nasal spray, suspension RxNorm: 6909984 USE ONE SPRAY(S) IN EACH NOSTRIL TWICE DAILY 07/25/2017 No Stop Date Active meclizine 25 mg tablet RxNorm: 623006 TAKE ONE TABLET BY MOUTH THREE TIMES DAILY NEEDED 07/25/2017 No Stop Date Active Voltaren 1 % topical gel RxNorm: 680183 1 Application TOP QID as needed 06/20/2017 No Stop Date Active Zithromax Z-Dylan 250 mg tablet RxNorm: 101809 1 Tablet(s) PO UD 06/20/2017 07/27/2017 Inactive z pack as directed Keflex 500 mg capsule RxNorm: 756804 1 Capsule(s) PO TID 201706/01/2017 Inactive Zithromax Z-Dylan 250 mg tablet RxNorm: 317801 1 Tablet(s) PO UD 04/27/2017 06/19/2017 Inactive z pack as directed lisinopril 10 mg tablet RxNorm: 661309 1 Tablet(s) PO daily 07/22/2017 Inactive Lipitor 10 mg tablet RxNorm: 370018 1 Tablet(s) PO QHS 201711/06/2017 Inactive Zithromax Z-Dylan 250 mg tablet RxNorm: 787017 1 Tablet(s) PO UD 02/15/2017 04/26/2017 Inactive z pack as directed meclizine 25 mg tablet RxNorm: 297913 TAKE ONE TABLET BY MOUTH THREE TIMES DAILY NEEDED 01/23/2017 07/24/2017 Inactive Zithromax Z-Dylan 250 mg tablet RxNorm: 082233 1 Tablet(s) PO UD 01/05/2017 02/14/2017 Inactive z pack as directed losartan 50 mg tablet RxNorm: 331473 1 Tablet(s) PO daily 201604/10/2017 Inactive amlodipine 5 mg tablet RxNorm: 238540 1 Tablet(s) PO daily 10/11/2017 Inactive Zithromax Z-Dylan 250 mg tablet RxNorm: 383263 1 Tablet(s) PO UD 12/16/2016 01/04/2017 Inactive z pack as directed Zyrtec 10 mg tablet RxNorm: 8888777 1 Tablet(s) PO daily 12/1601/14/2017 Inactive Lipitor 10 mg tablet RxNorm: 157803 1 Tablet(s) PO QHS 201602/22/2017 Inactive Zithromax Z-Dylan 250 mg tablet RxNorm: 532661 1 Tablet(s) PO UD 09/27/2016 12/15/2016 Inactive z pack as directed Lipitor 10 mg tablet RxNorm: 264260 1 Tablet(s) PO QHS 201610/25/2016 Inactive guaifenesin 400 mg tablet RxNorm: 626682 1 Tablet(s) PO BID as needed 08/04/2016 No Stop Date Active cefdinir 300 mg capsule RxNorm: 552113 1 Capsule(s) PO BID started by Dr. Davila 08/04/2016 08/13/2016 Inactive amlodipine 10 mg tablet RxNorm: 131574 1 Tablet(s) PO daily 07/201612/21/2016 Inactive Keflex 500 mg capsule RxNorm: 190675 1 Capsule(s) PO TID 201607/27/2016 Inactive Xanax 0.25 mg tablet RxNorm: 624011 1 Tablet(s) PO TID as needed anxiety 07/01/2016 08/27/2016 Inactive Zyrtec 10 mg tablet RxNorm: 5482172 1 Tablet(s) PO daily 07/0107/30/2016 Inactive amlodipine 5 mg tablet RxNorm: 022481 1 Tablet(s) PO daily 06/201607/30/2016 Inactive Keflex 500 mg capsule RxNorm: 612051 1 Capsule(s) PO TID 201607/03/2016 Inactive Keflex 500 mg capsule RxNorm: 749524 1 Capsule(s) PO TID 201606/23/2016 Inactive Keflex 500 mg capsule RxNorm: 936449 1 Capsule(s) PO TID 201606/30/2016 Inactive Flonase Allergy Relief 50 mcg/actuation nasal spray, suspension RxNorm: 8262343 USE ONE SPRAY(S) IN EACH NOSTRIL TWICE DAILY 06/20/2016 05/15/2017 Inactive amlodipine 10 mg tablet RxNorm: 859808 1 Tablet(s) PO daily 04/201606/28/2016 Inactive Lipitor 10 mg tablet RxNorm: 602827 1 Tablet(s) PO QHS 201608/14/2016 Inactive Flonase Allergy Relief 50 mcg/actuation nasal spray, suspension RxNorm: 4027945 USE ONE SPRAY(S) IN EACH NOSTRIL TWICE DAILY 04/18/2016 05/17/2016 Inactive cephalexin 500 mg capsule RxNorm: 211565 1 Capsule(s) PO TID 04/05/2016 Inactive take with probiotics BID amlodipine 10 mg tablet RxNorm: 341040 1 Tablet(s) PO daily 02/201605/29/2016 Inactive Bactroban 2 % topical cream RxNorm: 332565 1 Application TOP BID 03/30/2016 04/08/2016 Inactive Zithromax Z-Dylan 250 mg tablet RxNorm: 793183 1 Tablet(s) PO UD 03/10/2016 05/15/2016 Inactive z pack as directed Keflex 500 mg capsule RxNorm: 108557 1 Capsule(s) PO TID 201502/25/2016 Inactive take with probiotics BID acyclovir 800 mg tablet RxNorm: 563898 1 Tablet(s) PO TID 01/2402/21/2016 Inactive Zithromax Z-Dylan 250 mg tablet RxNorm: 991347 1 Tablet(s) PO UD 01/19/2016 01/24/2016 Inactive z pack Flonase Allergy Relief 50 mcg/actuation nasal spray, suspension RxNorm: 8223896 USE ONE SPRAY(S) IN EACH NOSTRIL TWICE DAILY 12/28/2015 02/25/2016 Inactive Kenalog 40 mg/mL suspension for injection RxNorm: 9521044 Milliliter(s) Inj 12/18/2015 12/18/2015 Inactive Keflex 500 mg capsule RxNorm: 832963 1 Capsule(s) PO TID 201512/24/2015 Inactive Zithromax Z-Dylan 250 mg tablet RxNorm: 583062 1 Tablet(s) PO UD 12/09/2015 12/23/2015 Inactive z pack meclizine 25 mg tablet RxNorm: 368643 1 Tablet(s) PO TID as needed 12/09/2015 12/08/2015 Inactive meclizine 25 mg tablet RxNorm: 123854 1 Tablet(s) PO TID as needed 12/09/2015 02/26/2016 Inactive Keflex 500 mg capsule RxNorm: 199411 1 Capsule(s) PO TID 201511/22/2015 Inactive Cipro 500 mg tablet RxNorm: 119253 1 Tablet(s) PO BID 201511/13/2015 Inactive Keflex 500 mg capsule RxNorm: 254095 1 Capsule(s) PO TID 201510/30/2015 Inactive Xanax 0.25 mg tablet RxNorm: 418072 1 Tablet(s) PO TID as needed anxiety 09/18/2015 11/13/2015 Inactive Keflex 500 mg capsule RxNorm: 348816 1 Capsule(s) PO TID 201508/19/2015 Inactive losartan 50 mg tablet RxNorm: 995721 1 Tablet(s) PO daily 201507/07/2015 Inactive Pepcid 20 mg tablet RxNorm: 815831 1 Tablet(s) PO BID 201507/07/2015 Inactive Pepcid 20 mg tablet RxNorm: 317486 1 Tablet(s) PO BID 201501/31/2016 Inactive losartan 50 mg tablet RxNorm: 682335 1 Tablet(s) PO daily 201501/31/2016 Inactive prednisone 20 mg tablet RxNorm: 605916 2 Tablet(s) PO daily 06/22/2015 Inactive prednisone 20 mg tablet RxNorm: 654994 2 Tablet(s) PO daily 12/23/2015 Inactive Diflucan 100 mg tablet RxNorm: 816739 TAKE ONE TABLET BY MOUTH ONCE DAILY 06/12/2015 12/23/2015 Inactive Zithromax Z-Dylan 250 mg tablet RxNorm: 770130 1 Tablet(s) PO UD 06/05/2015 07/06/2015 Inactive z pack amlodipine 5 mg tablet RxNorm: 492327 1 Tablet(s) PO daily 03/29/2016 Inactive Zetia 10 mg tablet RxNorm: 127577 1 Tablet(s) PO daily 201506/14/2015 Inactive valsartan 160 mg tablet RxNorm: 522881 1 Tablet(s) PO daily 07/07/2015 Inactive Lipitor 10 mg tablet RxNorm: 975096 1 Tablet(s) PO QHS 201505/18/2015 Inactive Lipitor 10 mg tablet RxNorm: 282655 1 Tablet(s) PO QHS 201504/27/2015 Inactive Zithromax 250 mg tablet RxNorm: 036895 Tablet(s) PO UD 201504/28/2015 Inactive Keflex 500 mg capsule RxNorm: 111794 1 Capsule(s) PO TID 201503/22/2015 Inactive Keflex 500 mg capsule RxNorm: 251931 1 Capsule(s) PO TID 201504/01/2015 Inactive Xanax 0.25 mg tablet RxNorm: 965987 1 Tablet(s) PO TID as needed anxiety 03/12/2015 07/04/2016 Inactive carvedilol 25 mg tablet RxNorm: 826805 1 Tablet(s) PO BID 03/1201/31/2016 Inactive amlodipine 5 mg tablet RxNorm: 621488 1 Tablet(s) PO BID 201505/18/2015 Inactive Diflucan 100 mg tablet RxNorm: 027397 1 Tablet(s) PO daily 03/21/2015 Inactive Diflucan 100 mg tablet RxNorm: 940314 1 Tablet(s) PO daily 02/14/2015 Inactive Diflucan 100 mg tablet RxNorm: 822114 1 Tablet(s) PO daily 06/201401/05/2015 Inactive Diflucan 100 mg tablet RxNorm: 664490 1 Tablet(s) PO daily 06/201412/31/2014 Inactive nystatin 100,000 unit/mL oral suspension RxNorm: 413975 5 Milliliter(s) PO QID 12/24/2014 06/14/2015 Inactive nystatin 100,000 unit/mL oral suspension RxNorm: 764355 5 Milliliter(s) PO QID 12/24/2014 12/23/2014 Inactive Zithromax 250 mg tablet RxNorm: 775068 1 Tablet(s) PO daily 12/19/2014 Inactive Zithromax 250 mg tablet RxNorm: 983284 1 Tablet(s) PO daily 12/14/2014 Inactive Flonase Allergy Relief 50 mcg/actuation nasal spray, suspension RxNorm: 1 [place] NASAL BID 12/11/2014 12/10/2014 Inactive Flonase Allergy Relief 50 mcg/actuation nasal spray, suspension RxNorm: 2481480 1 [place] NASAL BID 12/11/20142015 Inactive amlodipine 5 mg tablet RxNorm: 551246 2 Tablet(s) PO daily 11/13/2014 Inactive amlodipine 5 mg tablet RxNorm: 646941 2 Tablet(s) PO daily 03/11/2015 Inactive Lotrisone 1 %-0.05 % topical cream RxNorm: 405556 1 TOP BID until healed 10/17/2014 10/30/2014 Inactive Lotrisone 1 %-0.05 % topical cream RxNorm: 747477 1 TOP BID until healed 10/16/2014 10/16/2014 Inactive Lotrisone 1 %-0.05 % topical cream RxNorm: 133672 1 TOP BID until healed 10/06/2014 10/15/2014 Inactive Keflex 500 mg capsule RxNorm: 173558 1 Capsule(s) PO TID 201408/11/2014 Inactive Keflex 500 mg capsule RxNorm: 386608 1 Capsule(s) PO TID 201408/18/2014 Inactive clotrimazole 1 % topical solution RxNorm: 977775 1 Drop(s) TOP BID No Start Date Active Vitamin D3 5,000 unit tablet RxNorm: 318626 1 Tablet(s) PO daily No Start Date Active guaifenesin 400 mg tablet RxNorm: 914117 1 Tablet(s) PO BID as needed No Start Date 08/03/2016 Inactive Lotrisone 1 %-0.05 % topical cream RxNorm: 237327 1 TOP BID until healed No Start Date 10/05/2014 Inactive lisinopril 40 mg tablet RxNorm: 044078 1 Tablet(s) PO daily No Start Date 05/18/2015 Inactive amlodipine 5 mg tablet RxNorm: 731510 1 Tablet(s) PO daily No Start Date 11/13/2014 Inactive indapamide 1.25 mg tablet RxNorm: 995002 1 Tablet(s) PO daily No Start Date 01/31/2016 Inactive aspirin 81 mg tablet RxNorm: 530659 1 Tablet(s) PO daily No Start Date 02/07/2017 Inactive Medication Administered Medication Codes Instructions Start Date Status Kenalog 40 mg/mL suspension for injection RxNorm: 2095973 1Milliliter 07/28/2017 No longer Active Kenalog 40 mg/mL suspension for injection RxNorm: 6809081 Milliliter 12/18/2015 No longer Active Immunizations Vaccine [...] abnormal glucose ICD-10: R73.09 ICD-9: 790.29 11/13/2017 Essential (primary) hypertension ICD-10: I10 ICD-9: 401.1 11/13/2017 Mixed hyperlipidemia ICD-10: E78.2 ICD-9: 272.2 11/13/2017 Tinea corporis ICD-10: B35.4 ICD-9: 110.5 [...] Code Item Item Code Result Date %Hba1C Yno199 % HbA1c 12297-6 6.5 % 12/01/2016 %Hba1C Vrt207 Gluc Ave 140 mg/dL 12/01/2016 Lipid Ord30 [...] 93.3 fl 04/12/2016 Cbc With Differential Ord2 [place]% 13.3 % 04/12/2016 Cbc With Differential Ord2 [...] 2.85 K/ul 04/12/2016 Cbc With Differential Ord2 [place] ABS# 1.1 K/ul 04/12/2016 Cbc With Differential Ord2 Eos ABS# 0.1 K/ul 04/12/2016 Cbc With Differential Ord2 Baso ABS# 0.0 K/ul 04/12/2016 Comp Metabolic Bde945 NA 129 mEq/L 04/12/2016 Comp Metabolic Hsl850 K 4.0 mEq/L 04/12/2016 Comp Metabolic Nze719 CL 93 mEq/L 04/12/2016 Comp Metabolic Emz237 CO2 29.0 mEq/L 04/12/2016 Comp Metabolic Nrx757 ANION GAP 11 04/12/2016 Comp Metabolic Hda859 GLUCOSE 100 mg/dL 04/12/2016 Comp Metabolic Gfx006 Creat 1.0 mg/dL 04/12/2016 Comp Metabolic Rph186 eGFR 55 ml/min/1.73m2 04/12/2016 Comp Metabolic Lth664 BUN 19 mg/dL 04/12/2016 Comp Metabolic Zvf914 B/C Ratio 18.8 Ratio 04/12/2016 Comp Metabolic Ivn717 CALCIUM 9.3 mg/dL 04/12/2016 Comp Metabolic Sem057 ALK PHOS 38 U/L 04/12/2016 Comp Metabolic Mxq360 AST(SGOT) 17 U/L 04/12/2016 Comp Metabolic Htl721 ALT(SGPT) 11 U/L 04/12/2016 Comp Metabolic Gho587 BILI T 1.0 mg/dL 04/12/2016 Comp Metabolic Qat207 ALBUMIN 4.2 g/dL 04/12/2016 Comp Metabolic Fjx106 TPRO 6.6 g/dL 04/12/2016 Comp Metabolic Tfy652 GLOB 2.4 g/dL 04/12/2016 Comp Metabolic Qap154 A/G Ratio 1.8 Ratio 04/12/2016 Comp Metabolic Jfm076 Osmo 261 mOsmo 04/12/2016 Lipid Ord30 CHOL 265 mg/dL 04/12/2016 Lipid Ord30 HDL 42.0 mg/dl 04/12/2016 Lipid Ord30 TRIG 246 mg/dL 04/12/2016 Lipid Ord30 LDL 174 mg/dL 04/12/2016 Lipid Ord30 C/HDL 6.3 Ratio 04/12/2016 Tsh Ord6 hTSH II 2.49 uIU/mL 04/12/2016 Tsh Ord6 hTSH II 1.83 uIU/mL 06/12/2015 Comp Metabolic Ngk190 NA 137 mEq/L 06/12/2015 Comp Metabolic Iaq656 K 4.4 mEq/L 06/12/2015 Comp Metabolic Fgw542 CL 103 mEq/L 06/12/2015 Comp Metabolic Dyw800 CO2 27.0 mEq/L 06/12/2015 Comp Metabolic Ber761 ANION GAP 11 06/12/2015 Comp Metabolic Iey257 GLUCOSE 87 mg/dL 06/12/2015 Comp Metabolic Uxm550 Creat 1.3 mg/dL 06/12/2015 Comp Metabolic Aya585 eGFR 43 ml/min/1.73m2 06/12/2015 Comp Metabolic Bby918 BUN 32 mg/dL 06/12/2015 Comp Metabolic Ifb421 B/C Ratio 25.4 Ratio 06/12/2015 Comp Metabolic Bcn974 CALCIUM 9.5 mg/dL 06/12/2015 Comp Metabolic Nog261 ALK PHOS 36 U/L 06/12/2015 Comp Metabolic Avf743 AST(SGOT) 16 U/L 06/12/2015 Comp Metabolic Hzi909 ALT(SGPT) 17 U/L 06/12/2015 Comp Metabolic Fqk390 BILI T 1.0 mg/dL 06/12/2015 Comp Metabolic Hsd308 ALBUMIN 4.1 g/dL 06/12/2015 Comp Metabolic Syf587 TPRO 6.5 g/dL 06/12/2015 Comp Metabolic Muv872 GLOB 2.5 g/dL 06/12/2015 Comp Metabolic Vli309 A/G Ratio 1.7 Ratio 06/12/2015 Comp Metabolic Ujz516 Osmo 280 mOsmo 06/12/2015 Lipid Ord30 CHOL [...] 30.6 pg 06/12/2015 Cbc With Differential Ord2 [place]% 11.0 % 06/12/2015 Cbc With Differential Ord2 [...] 1.96 K/ul 06/12/2015 Cbc With Differential Ord2 [place] ABS# 0.9 K/ul 06/12/2015 Cbc With Differential [...] 94.5 fl 03/12/2015 Cbc With Differential Ord2 [place]% 10.7 % 03/12/2015 Cbc With Differential Ord2 [...] 2.00 K/ul 03/12/2015 Cbc With Differential Ord2 [place] ABS# 1.0 K/ul 03/12/2015 Cbc With Differential Ord2 Eos ABS# 0.1 K/ul 03/12/2015 Cbc With Differential Ord2 Baso ABS# 0.0 K/ul 03/12/2015 Cbc With Differential Ord2 New Analyzer Notice Please note new ref ranges starting 03-11-2015 due to implemntation of new five part differential hematolgy analyzer. 03/12/2015 Comp Metabolic Mdi857 NA 139 mEq/L 03/12/2015 Comp Metabolic Ths803 K 4.2 mEq/L 03/12/2015 Comp Metabolic Ols452 CL 101 mEq/L 03/12/2015 Comp Metabolic Oot313 CO2 28.0 mEq/L 03/12/2015 Comp Metabolic Kij265 ANION GAP 14 03/12/2015 Comp Metabolic Yoy529 GLUCOSE 78 mg/dL 03/12/2015 Comp Metabolic Svd268 Creat 1.1 mg/dL 03/12/2015 Comp Metabolic Xmb461 eGFR 51 ml/min/1.73m2 03/12/2015 Comp Metabolic Kmc476 BUN 17 mg/dL 03/12/2015 Comp Metabolic Ufw526 B/C Ratio 15.6 Ratio 03/12/2015 Comp Metabolic Wrc155 CALCIUM 9.4 mg/dL 03/12/2015 Comp Metabolic Uub346 ALK PHOS 46 U/L 03/12/2015 Comp Metabolic Htm433 AST(SGOT) 16 U/L 03/12/2015 Comp Metabolic Euu224 ALT(SGPT) 12 U/L 03/12/2015 Comp Metabolic Xpt749 BILI T 0.8 mg/dL 03/12/2015 Comp Metabolic Vvk603 ALBUMIN 4.1 g/dL 03/12/2015 Comp Metabolic Cfc200 TPRO 6.6 g/dL 03/12/2015 Comp Metabolic Wuy093 GLOB 2.6 g/dL 03/12/2015 Comp Metabolic Qpl421 A/G Ratio 1.6 Ratio 03/12/2015 Comp Metabolic Bve474 Osmo 278 mOsmo 03/12/2015 Lipid Ord30 CHOL [...] hTSH II 3.15 uIU/mL 12/01/2014 Comp Metabolic Uol145 NA 132 mEq/L 12/01/2014 Comp Metabolic Igc366 K 4.4 mEq/L 12/01/2014 Comp Metabolic Vvr837 CL 99 mEq/L 12/01/2014 Comp Metabolic Fdb801 CO2 27.0 mEq/L 12/01/2014 Comp Metabolic Mpo695 ANION GAP 10 12/01/2014 Comp Metabolic Mhe635 GLUCOSE 86 mg/dL 12/01/2014 Comp Metabolic Fcg323 Creat 1.2 mg/dL 12/01/2014 Comp Metabolic Gbn649 eGFR 46 ml/min/1.73m2 12/01/2014 Comp Metabolic Pta475 BUN 32 mg/dL 12/01/2014 Comp Metabolic Sjr839 B/C Ratio 27.1 Ratio 12/01/2014 Comp Metabolic Vlg037 CALCIUM 9.4 mg/dL 12/01/2014 Comp Metabolic Qjf042 ALK PHOS 35 U/L 12/01/2014 Comp Metabolic Hin181 AST(SGOT) 14 U/L 12/01/2014 Comp Metabolic Rre264 ALT(SGPT) 13 U/L 12/01/2014 Comp Metabolic Yxn292 BILI T 0.8 mg/dL 12/01/2014 Comp Metabolic Maj579 ALBUMIN 4.0 g/dL 12/01/2014 Comp Metabolic Vgr690 TPRO 6.8 g/dL 12/01/2014 Comp Metabolic Ldf878 GLOB 2.8 g/dL 12/01/2014 Comp Metabolic Qxi018 A/G Ratio 1.4 Ratio 12/01/2014 Comp Metabolic Ggt792 Osmo 271 mOsmo 12/01/2014 Review of Systems [...] FLU VACC PRSV FREE INC ANTIG CPT-4: 41855 11/13/2017 ADMIN INFLUENZA VIRUS VAC CPT-4: G0008 11/13/2017 TRIAMCINOLONE ACET INJ NOS CPT-4: J3301 07/28/2017 PPPS, SUBSEQ VISIT CPT -4: G0439 02/08/2017 URINALYSIS NONAUTO W/O SCOPE CPT-4: 27488 08/15/2016 PPPS, SUBSEQ VISIT CPT -4: G0439 02/01/2016 TRIAMCINOLONE ACET INJ NOS CPT-4: J3301 12/18/2015 ADMIN INFLUENZA VIRUS VAC CPT-4: G0008 11/26/2015 FLU VACC 4 GISELA 3 YRS PLUS IM Formatting Model/CDA Sections, Assigned to/Malina Mazariegos SNOMED CT: 74423515 CPT-4: 11503Zfdkgko 11/26/2015 URINALYSIS NONAUTO W/O SCOPE CPT-4: 85595 11/20/2015 URINALYSIS NONAUTO W/O SCOPE CPT-4: 03430 11/13/2015 IMMUNIZATION ADMIN CPT -4: 38311 12/01/2014 FLU VACC 4 GISELA 3 YRS PLUS IM Formatting Model/CDA Sections, Assigned to/Malina Mazariegos SNOMED CT: 94908901 CPT-4: 59982Ebnhoug 12/01/2014 Vital Signs Date Vital 02/06/2018 Blood Pressure 1: 142/60 Code : 8480-6 BMI: 25.3 Code : 82443-6 Heart Rate 1 : 68 bpm Height: 5'1" SpO2: 99% Temperature: 37.0 (C) / 98.6 (F) Weight: 134 lbs 12/08/2017 Blood Pressure 1: 140/52 Code : 8480-6 BMI: 25.5 Code : 06254-1 Heart Rate 1 : 77 bpm Height: 5'1" SpO2: 96% Temperature: 36.6 (C) / 97.9 (F) Weight: 135 lbs 11/13/2017 Blood Pressure 1: 134/54 Code : 8480-6 BMI: 24.8 Code : 21503-1 Heart Rate 1 : 73 bpm Height: 5'1" SpO2: 98% Weight: 131 lbs 08/29/2017 Blood Pressure 1: 162/64 Code : 8480-6 BMI: 24.9 Code : 46335-9 Heart Rate 1 : 61 bpm Height: 5'1" SpO2: 96% Weight: 132 lbs 07/28/2017 Blood Pressure 1: 148/62 Code : 8480-6 BMI: 25.1 Code : 67469-2 Heart Rate 1 : 67 bpm Height: 5'1" SpO2: 99% Temperature: 36.4 (C) / 97.5 (F) Weight: 133 lbs 06/20/2017 Blood Pressure 1: 140/52 Code : 8480-6 BMI: 25.3 Code : 20235-1 Heart Rate 1 : 64 bpm Height: 5'1" SpO2: 98% Weight: 134 lbs 05/26/2017 Blood Pressure 1: 140/56 Code : 8480-6 BMI: 25.7 Code : 40327-2 Heart Rate 1 : 74 bpm Height: 5'1" SpO2: 95% Weight: 136 lbs 04/24/2017 Blood Pressure 1: 140/68 Code : 8480-6 BMI: 24.6 Code : 49963-0 Heart Rate 1 : 67 bpm Height: 5'1" SpO2: 97% Weight: 130 lbs 02/08/2017 Blood Pressure 1: 134/76 Code : 8480-6 BMI: 24.9 Code : 80676-7 Heart Rate 1 : 67 bpm Height: 5'1" SpO2: 98% Waist Measure (cm): 38704 cm Weight: 132 lbs 12/22/2016 Blood Pressure 1: 156/80 Code : 8480-6 BMI: 24.2 Code : 55728-3 Heart Rate 1 : 65 bpm Height: 5'1" SpO2: 98% Weight: 128 lbs 12/16/2016 Blood Pressure 1: 138/62 Code : 8480-6 BMI: 23.8 Code : 39270-5 Heart Rate 1 : 63 bpm Height: 5'1" SpO2: 98% Weight: 126 lbs 08/15/2016 Blood Pressure 1: 130/60 Code : 8480-6 BMI: 25.3 Code : 11526-5 Heart Rate 1 : 72 bpm Height: 5'1" SpO2: 95% Weight: 134 lbs 08/02/2016 Blood Pressure 1: 160/62 Code : 8480-6 BMI: 25.3 Code : 62662-3 Heart Rate 1 : 67 bpm Height: 5'1" SpO2: 97% Weight: 134 lbs 07/21/2016 Blood Pressure 1: 148/66 Code : 8480-6 BMI: 25.9 Code : 96321-9 Heart Rate 1 : 71 bpm Height: 5'1" SpO2: 97% Temperature: 36.8 (C) / 98.2 (F) Weight: 137 lbs 07/01/2016 Blood Pressure 1: 142/72 Code : 8480-6 BMI: 26.5 Code : 77998-5 Heart Rate 1 : 68 bpm Height: 5'1" SpO2: 94% Weight: 140 lbs 05/16/2016 Blood Pressure 1: 138/68 Code : 8480-6 Blood Pressure 1: 162/76 Code: 8480-6 BMI: 25.7 Code: 74253-8 Heart Rate 1: 58 bpm Height: 5'1" SpO2: 98% Weight: 136 lbs 04/06/2016 Blood Pressure 1: 138/74 Code : 8480-6 Blood Pressure 1: 162/72 Code: 8480-6 BMI: 25.7 Code: 65139-7 Heart Rate 1: 75 bpm Height: 5'1" SpO2: 97% Weight: 136 lbs 03/30/2016 Blood Pressure 1: 188/80 Code : 8480-6 BMI: 26.3 Code : 15184-9 Heart Rate 1 : 75 bpm Height: 5'1" SpO2: 98% Weight: 139 lbs 02/01/2016 Blood Pressure 1: 140/72 Code : 8480-6 BMI: 25.3 Code : 00612-1 Heart Rate 1 : 65 bpm Height: 5'1" SpO2: 97% Waist Measure (cm): 84 cm Weight: 134 lbs 01/25/2016 Blood Pressure 1: 140/74 Code : 8480-6 BMI: 25.1 Code : 06019-2 Heart Rate 1 : 66 bpm Height: 5'1" SpO2: 98% Weight: 133 lbs 12/24/2015 Blood Pressure 1: 142/66 Code : 8480-6 BMI: 24.9 Code : 07671-7 Heart Rate 1 : 54 bpm Height: 5'1" SpO2: 97% Weight: 132 lbs 12/18/2015 Blood Pressure 1: 152/62 Code : 8480-6 BMI: 25.5 Code : 48507-4 Heart Rate 1 : 66 bpm Height: 5'1" SpO2: 96% Weight: 135 lbs 12/11/2015 Blood Pressure 1: 136/54 Code : 8480-6 Heart Rate 1: 72 bpm SpO2: 98% Weight: 137 lbs 11/26/2015 Blood Pressure 1: 142/70 Code : 8480-6 BMI: 25.3 Code : 06382-5 Heart Rate 1 : 64 bpm Height: 5'1" SpO2: 97% Weight: 134 lbs 11/20/2015 Blood Pressure 1: 154/70 Code : 8480-6 Heart Rate 1: 65 bpm SpO2: 98% 10/23/2015 Blood Pressure 1: 138/62 Code : 8480-6 Heart Rate 1: 55 bpm SpO2: 98% 10/21/2015 Blood Pressure 1: 142/68 Code : 8480-6 BMI: 25.7 Code : 93171-9 Heart Rate 1 : 73 bpm Height: 5'1" SpO2: 98% Weight: 136 lbs 07/15/2015 Blood Pressure 1: 130/60 Code : 8480-6 BMI: 26.6 Code : 58192-1 Heart Rate 1 : 70 bpm Height: 5'1" SpO2: 97% Weight: 141 lbs 06/15/2015 Blood Pressure 1: 118/64 Code : 8480-6 BMI: 24.9 Code : 82004-0 Heart Rate 1 : 66 bpm Height: 5'1" SpO2: 99% Weight: 132 lbs 06/05/2015 Blood Pressure 1: 142/60 Code : 8480-6 Blood Pressure 1: 135/58 Code: 8480-6 Heart Rate 1: 64 bpm SpO2: 99% 05/19/2015 Blood Pressure 1: 146/60 Code : 8480-6 BMI: 27.1 Code : 05920-8 Heart Rate 1 : 66 bpm Height: 5'1" SpO2: 97% Weight: 143 lbs 8 oz 04/24/2015 Blood Pressure 1: 148/58 Code : 8480-6 BMI: 25.9 Code : 07640-7 Heart Rate 1 : 61 bpm Height: 5'1" SpO2: 98% Weight: 137 lbs 03/12/2015 Blood Pressure 1: 140/72 Code : 8480-6 BMI: 25.1 Code : 21750-1 Heart Rate 1 : 68 bpm Height: 5'1" SpO2: 98% Weight: 133 lbs 01/12/2015 Blood Pressure 1: 146/60 Code : 8480-6 BMI: 25.7 Code : 80792-0 Heart Rate 1 : 48 bpm Height: 5'1" SpO2: 97% Weight: 136 lbs 12/11/2014 Blood Pressure 1: 125/65 Code : 8480-6 Blood Pressure 1: 144/56 Code: 8480-6 BMI: 25.1 Code: 97446-6 Heart Rate 1: 56 bpm Height: 5'1" SpO2: 96% Weight: 133 lbs 12/01/2014 Blood Pressure 1: 136/60 Code : 8480-6 Heart Rate 1: 56 bpm SpO2: 96% Weight: 131 lbs 5 oz 08/14/2014 Blood Pressure 1: 132/72 Code : 8480-6 BMI: 25.5 Code : 23921-8 Heart Rate 1 : 73 bpm Height: [...] Other allergic rhinitis[ICD10: J30.89] Evelyn Cohen MD, [facility] CPT-4: 17697 02/06/2018 [id number] EST. PATIENT, LEVEL III Diagnosis: Other allergic rhinitis[ICD10: J30.89] Diagnosis: Other acute sinusitis[ICD10: J01.80] Evelyn Cohen MD, [facility] CPT-4: 56742 12/08/2017 ([id number]) 14949 EST. PATIENT, LEVEL IV Diagnosis: Essential (primary) hypertension[ICD10: I10] Diagnosis: Chronic maxillary sinusitis[ICD10: J32.0] Diagnosis: Mixed hyperlipidemia[ICD10: E78.2] Diagnosis: Other abnormal glucose[ICD10: R73.09] Berenice Cohen MD, [facility] CPT-4: 69936 11/13/2017 ([id number]) 30059 EST. PATIENT, LEVEL III Diagnosis: Tinea corporis[ICD10: B35.4] Diagnosis: Essential (primary) hypertension[ICD10: I10] Doris Cohen MD, [facility] CPT-4: 65505 08/29/2017 ([id number]) 89581 EST. PATIENT, LEVEL III Diagnosis: Acute recurrent maxillary sinusitis[ICD10: J01.01] Diagnosis: Other allergic rhinitis[ICD10: J30.89] Doris Cohen MD, [facility] CPT-4: 98986 07/28/2017 98046 EST. PATIENT, LEVEL IV Diagnosis: Other acute sinusitis[ICD10: J01.80] Diagnosis: Other allergic rhinitis[ICD10: J30.89] Diagnosis: Otalgia, bilateral[ICD10: H92.03] Diagnosis: Pain in right knee[ICD10: M25.561] Diagnosis: Pain in left knee[ICD10: M25.562] Evelyn Cohen MD, [facility] CPT -4: 56182 06/20/2017 89225 EST. PATIENT, LEVEL IV Diagnosis: Other acute sinusitis[ICD10: J01.80] Diagnosis: Other allergic rhinitis[ICD10: J30.89] Diagnosis: Gastro-esophageal reflux disease without esophagitis[ICD10: K21.9] Evelyn Cohen MD, [facility] CPT-4: 84697 05/26/2017 [id number] EST. PATIENT, LEVEL III Diagnosis: Essential (primary) hypertension[ICD10: I10] Evelyn Cohen MD, [facility] CPT-4: 66598 04/24/2017 ([id number]) 27720 EST. PATIENT, LEVEL IV Diagnosis: Essential (primary) hypertension[ICD10: I10] Diagnosis: Other abnormal glucose[ICD10: R73.09] Diagnosis: Mixed hyperlipidemia[ICD10: E78.2] Berenice Cohen MD, [facility] CPT-4: 87366 12/22/2016 20782 EST. PATIENT, LEVEL IV Diagnosis: Other acute sinusitis[ICD10: J01.80] Diagnosis: Other allergic rhinitis[ICD10: J30.89] Evelyn Cohen MD, [facility] CPT-4: 77046 12/16/2016 ([id number]) 88957 EST. PATIENT, LEVEL IV Diagnosis: Essential (primary) hypertension[ICD10: I10] Diagnosis: Mixed hyperlipidemia[ICD10: E78.2] Diagnosis: Dysuria[ICD10: R30.0] Berenice Cohen MD, [facility] CPT-4: 26551 08/15/2016 57346 EST. PATIENT, LEVEL III Diagnosis: Other acute sinusitis[ICD10: J01.80] Diagnosis: Other allergic rhinitis[ICD10: J30.89] Diagnosis: Otalgia, bilateral[ICD10: H92.03] Evelyn Cohen MD, [facility] CPT -4: 00399 08/02/2016 ([id number]) 67489 EST. PATIENT, LEVEL III Diagnosis: Acute recurrent maxillary sinusitis[ICD10: J01.01] Diagnosis: Otalgia, right ear[ICD10: H92.01] Doris Cohen MD, [facility] CPT-4: 43542 07/21/2016 83925 EST. PATIENT, LEVEL III Diagnosis: Dysuria[ICD10: R30.0] Diagnosis: Other allergic rhinitis[ICD10: J30.89] Evelyn Cohen MD, [facility] CPT-4: 85843 07/01/2016 ([id number]) 80622 EST. PATIENT, LEVEL IV Diagnosis: Essential (primary) hypertension[ICD10: I10] Diagnosis: Mixed hyperlipidemia[ICD10: E78.2] Berenice Cohen MD [facility] CPT-4: 72495 05/16/2016 63318 EST. PATIENT, LEVEL III Diagnosis: Mixed hyperlipidemia[ICD10: E78.2] Diagnosis: Essential (primary) hypertension[ICD10: I10] Diagnosis: Laceration without foreign body of left hand, subsequent encounter[ ICD10: S61.412D] Evelyn Cohen MD, [facility] CPT-4: 09953 04/06/2016 ([id number]) 69628 EST. PATIENT, LEVEL III Diagnosis: Essential (primary) hypertension[ICD10: I10] Berenice Cohen MD, [facility] CPT-4: 14312 03/30/2016 ([id number]) 95881 EST. 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 PATIENT, LEVEL III Diagnosis: Essential (primary) hypertension[ICD10: I10] Berenice Cohen MD, [facility] CPT-4: 15957 12/24/2015 96157 EST. PATIENT, LEVEL III Diagnosis: Other acute sinusitis[ICD10: J01.80] Diagnosis: Other allergic rhinitis[ICD10: J30.89] Evelyn Cohen MD, [facility] CPT-4: 51059 12/18/2015 ([id number]) Miscellaneous no charge Diagnosis: Essential (primary) hypertension[ICD10: I10] Evelyn Cohen MD, [facility] CPT-4: 46045 12/11/2015 ([id number]) 85460 EST. PATIENT, LEVEL IV Diagnosis: Essential (primary) hypertension[ICD10: I10] Diagnosis: Other abnormal glucose[ICD10: R73.09] Diagnosis: Encounter for immunization[ICD10: Z23] Berenice Cohen MD, [facility] CPT-4: 56970 11/26/2015 ([id number]) Miscellaneous no charge Diagnosis: Bitten by dog, initial encounter[ICD10: W54.0XXA] Evelyn Cohen MD, [facility] CPT-4: 83300 10/29/2015 ([id number]) Miscellaneous no charge Diagnosis: Essential (primary) hypertension[ICD10: I10] Diagnosis: Bitten by dog, initial encounter[ICD10: W54.0XXA] Evelyn Cohen MD, [facility] CPT-4: 88604 10/23/2015 23043 EST. PATIENT, LEVEL III Diagnosis: Cellulitis of face[ICD10: L03.211] Diagnosis: Bitten by dog, initial encounter[ICD10: W54.0XXA] Evelyn Cohen MD, [facility] CPT-4: 92267 10/21/2015 ([id number]) Miscellaneous no charge Diagnosis: Essential (primary) hypertension[ICD10: I10] Evelyn Cohen MD, [facility] CPT-4: 65159 07/15/2015 ([id number]) 83038 EST. PATIENT, LEVEL IV Diagnosis: Essential (primary) hypertension[ICD10: I10] Diagnosis: Mixed hyperlipidemia[ICD10: E78.2] Diagnosis: Dry mouth, unspecified[ICD10: R68.2] Berenice Cohen MD, [facility] CPT-4: 54858 06/15/2015 ([id number]) Miscellaneous no charge Diagnosis: Essential (primary) hypertension[ICD10: I10] Doris Cohen MD, [facility] CPT-4: 64925 06/05/2015 ([id number]) 24705 EST. PATIENT, LEVEL IV Diagnosis: Mammographic microcalcification found on diagnostic imaging of breast [ICD10: R92.0] Diagnosis: Edema, unspecified[ICD10: R60.9] Diagnosis: Essential (primary) hypertension[ICD10: I10] Berenice Cohen MD, [facility] CPT-4: 67214 05/19/2015 52744 EST. PATIENT, LEVEL IV Diagnosis: Other acute sinusitis[ICD10: J01.80] Diagnosis: Acute nasopharyngitis [common cold][ICD10: J00] Diagnosis: Other allergic rhinitis[ICD10: J30.89] Diagnosis: Localized edema[ICD10: R60.0] Diagnosis: Mixed hyperlipidemia[ICD10: E78.2] Evelyn Cohen MD, [facility] CPT-4: 73478 04/24/2015 ([id number]) 22953 EST. PATIENT, LEVEL IV Diagnosis: Essential (primary) hypertension[ICD10: I10] Diagnosis: Abscess of liver[ICD10: K75.0] Diagnosis: Anemia, unspecified[ICD10: D64.9] Berenice Cohen MD, [facility] CPT-4: 25822 03/12/2015 56322 EST. PATIENT, LEVEL IV Diagnosis: Essential (primary) hypertension[ICD10: I10] Diagnosis: Candidal stomatitis[ICD10: B37.0] Diagnosis: Pain in unspecified knee[ICD10: M25.569] Diagnosis: Edema, unspecified[ICD10: R60.9] Evelyn Cohen MD, [facility] CPT- 4: 58854 01/12/2015 ([id number]) 75092 EST. PATIENT, LEVEL III Diagnosis: Pain in right foot[ICD10: M79.671] Berenice Cohen MD, [facility] CPT-4: 70720 12/11/2014 ([id number]) 27730 EST. PATIENT, LEVEL IV Diagnosis: Abscess of liver[ICD10: K75.0] Diagnosis: Hypo-osmolality and hyponatremia[ICD10: E87.1] Diagnosis: Essential (primary) hypertension[ICD10: I10] Diagnosis: VACCIN FOR INFLUENZA[ICD10: Z23] Berenice Cohen MD, [facility] CPT-4: 74306 12/01/2014 ([id number]) OFFICE VISIT, NEW - LEVEL 4 Diagnosis: ESSENTIAL HYPERTENSION[ICD9: 401.9] Diagnosis: Chronic maxillary sinusitis[ICD9: 473.0] Berenice Cohen MD, [facility] CPT-4: 91821 08/14/2014 Plan of Care Planned Activity Notes Codes Status Date Visit Plan: Sinusitis - Pt has acute [...] allergy spray. 02/06/2018 Appointment: Evelyn West WPtel: [address] [place] [address] (15 min) Moderate 02/06/2018 Patient Education: Patient Medication Summary Completed 02/06/2018 Patient Education: Patient Medication Summary Completed 12/29/2017 Care Plan: %Hba1C [facility] : 68386-2 Pending 12/11/2017 Visit Plan: Sinusitis - Pt [...] allergy spray. 12/08/2017 Appointment: Evelyn West WPtel: [facility]0 [facility] (15 min) Moderate 12/08/2017 Patient Education: Patient [...] shot today 11/13/2017 Appointment: Berenice Cohen WPtel: [facility]0 [facility] (15 min) Moderate 11/13/2017 Patient Education: Patient Medication Summary Completed 11/13/2017 Patient Education: Cholesterol Management Completed 11/13/2017 Visit Plan: Tinea-rx sent to patient's pharmacy and instructed on use-keep groin clean/dry -call if symptoms do not resolve or if any worse HTN-elevated today-monitor and home and call if continues to be elevated 08/29/2017 Appointment: Doris Sheffield WPtel: [facility]1 [phone] (15 min) Moderate 08/29/2017 Patient Education: Patient [...] worse 07/28/2017 Appointment: Doris Sheffield WPtel: [phone] [phone] (30 min) Complex [...] not improve. 06/20/2017 Appointment: Evelyn West WPtel: [facility]5 [facility] (15 min) Moderate [...] acute concerns. 04/24/2017 Appointment: Evelyn West WPtel: [phone] [facility] (30 min) Complex [...] surrogate. 02/08/2017 Appointment: [phone] [facility] - Annual Wellness Visit 02/08/2017 [...] vaccine today 12/22/2016 Appointment: Berenice Cohen WPtel: [facility] (15 min) Moderate 12/22/2016 Patient Education: [...] allergy spray. 12/16/2016 Appointment: Evelyn West WPtel: [facility]5 [facility] (30 min) Complex 12/16/2016 Patient Education: Patient Medication Summary Completed 12/16/2016 Appointment: Berenice Cohen WPtel: [address] [place], [place] [id number] (15 min) Moderate 11/15/2016 Visit Plan: Hypertension [...] on carbohydrates. 08/15/2016 Appointment: Berenice Cohen WPtel: [facility]3 [facility] (15 min) Moderate 08/15/2016 Patient Education: Patient Medication Summary Completed 08/15/2016 Appointment: Doris Sheffield WPtel: [phone] (15 min) Moderate [...] show improvement. 08/02/2016 Appointment: Evelyn West WPtel: [facility]3 [facility] (30 min) Complex 08/02/2016 Patient Education: [...] ear flushed 07/21/2016 Appointment: Doris Sheffield WPtel: [phone] [phone] (15 min) Moderate [...] 10mg nightly. 05/16/2016 App[facility]ment: [phone] (15 min) Moderate 05/16/2016 Patient Education: [...] concerns. 04/06/2016 App[facility]ment: [phone] (10 min) Simple 04/06/2016 Patient Education: [...] daily. 03/30/2016 Appointment: [phone] [place] (15 min) Moderate 03/30/2016 Patient Education: Patient Medication Summary Completed 03/30/2016 Appointment: [phone] [facility] (15 min) Moderate 03/24/2016 Visit Plan: [...] care surrogate. 02/01/2016 Appointment: Evelyn West WPtel: [facility]9 [phone] [place] [address] - Annual Wellness Visit 02/01/2016 Patient Education: Patient Medication Summary Completed 02/01/2016 Visit Plan: Apthous ulcer - rx for acyclovir 800mg tid x7 days Sample of Voltaren gel to use on knees tid prn 01/25/2016 Appointment: Berenice Cohen WPtel: [facility] (15 min) Moderate 01/25/2016 Patient Education: [...] at home. 12/24/2015 Appointment: Berenice Cohen WPtel: [facility]3 [facility] (15 min) Moderate 12/24/2015 Patient Education: Patient [...] improvement. 12/18/2015 Appointment: Doris Sheffield WPtel: [phone] [facility] - 11/26/2015 Appointment: Berenice Cohen WPtel: [phone] [facility] (15 min) Moderate 11/26/2015 Patient [...] pain. 10/21/2015 Appointment: Doris Sheffield WPtel: [phone] [phone] [place] (15 min) Moderate 10/21/2015 Patient [...] mouth spray 06/15/2015 Appointment: [phone] (15 min) Moderate 06/15/2015 Patient Education: Patient Medication Summary Completed 06/15/2015 Patient Education: Patient Medication Summary Completed 06/12/2015 Appointment: [phone] [place] (15 min) Moderate 06/11/2015 Appointment: [...] the day 03/12/2015 Appointment: [facility]ren[facility] Cohen [facility]el[facility] (15 min) Moderate 03/12/2015 Patient Education: [...] appointment with then soon. Pt to try [place] rub on the knees to help reduce [...] is sore 12/11/2014 Appointment: Berenice Cohen WPtel: [address] [place] [address] (15 min) Moderate 12/11/2014 Patient Education: Patient [...] not improving. 12/01/2014 Appointment: Berenice Cohen WPtel: [address] [place], [place] [phone] (15 min) Moderate 12/01/2014 Patient Education: Patient Medication Summary Completed 12/01/2014 Patient Education: Hypertension Completed 12/01/2014 Appointment: Berenice Cohen WPtel: [address] [place] [address] (15 min) Moderate 09/15/2014 Visit Plan: Hypertension [...] improve. 08/14/2014 Appointment: [facility]el[phone] [facility] [place] ([place] New Patient 08/14/2014 Patient [...] liver response to medications. . Hypertension - continue with current medications, [...] foot where it is sore [employer] funeral director/embalmer will contact you for a colon screen test - it is a colon cancer screening that you will do at home and send in to the funeral director/embalmer. . No fracture of foot - recommended [...] pain is worsening or does not improve. biotin sweet oil to right ear and [...] do not resolve or if any worse co-enzyme Q10 - Qunol - take daily [...] medications. Restart the lipitor at 10mg nightly. start nexium over the counter for a [...] office if the symptoms are not improving. . Sinusitis - Pt has acute infection [...] if symptoms do not show improvement. . Tinea-rx sent to patient's pharmacy and instructed on use -keep groin clean/dry -call if symptoms do not resolve or if any worse HTN-elevated today-monitor and home and call if continues to be elevated try [place] on your knee. Decrease Salt in diet. [...] appointment with then soon. Pt to try [place] rub on the knees to help reduce [...] change in blood pressure readings at home. centrum silver for women or a One [...] blood cells are fine. BIOTENE mouth spray DECREASE THE AMLODIPINE TO 1 PILL DAILY. [...] to call if symptoms do not improve. we will repeat your blood [...] glucose - cut back on carbohydrates. . Allergies - chronic - recommended pt [...]
--- OUTSIDE RECORDS SUMMARY | 2018-06-30 14:52 | XMS REPORT | CCD ---
Author Author Berenice Cohen Organization Berenice Cohen MD, [facility] Address [address] [place] [address] Phone Care Team Providers Care [employer] Name Role Phone PP Unavailable CCM Unavailable Summary Purpose Interface Exchange Insurance Providers Payer name Policy type / Coverage type Covered alliance party ID Effective Begin Date Effective End Date [employer] Insurance [id number] Unknown Unknown Family history Son Diagnosis Age [...] Unknown Retired 08/14/[address]: 886958056 Never smoker 08/14/[address]: 973135868 Never drinks alcohol 08/14/2014 Allergies, Adverse Reactions, Alerts Substance Reaction Codes Entered Date Inactivated Date Status AUGMENTIN hives, RxNorm: 104248 08/14/2014 No Inactive Date Active [id number] REDUCTASE INHIBITORS myalgias, Unknown 2015 No Inactive [...] Instructions Zithromax Z-Dylan 250 mg tablet RxNorm: 859554 1 Tablet(s) PO UD 02/06/2018 No Stop Date Active Zyrtec 10 mg tablet RxNorm: 0260560 1 Tablet(s) PO daily 12/0801/06/2018 Inactive Zithromax Z-Dylan 250 mg tablet RxNorm: 735190 1 Tablet(s) PO UD 12/08/2017 02/05/2018 Inactive Lipitor 10 mg tablet RxNorm: 735059 1 Tablet(s) PO QHS 201706/21/2018 Active Lipitor 10 mg tablet RxNorm: 807703 TAKE 1 TABLET BY MOUTH EVERY DAY AT BEDTIME 11/24/2017 No Stop Date Active lisinopril 10 mg tablet RxNorm: 117968 1 Tablet(s) PO daily 08/17/2018 Active prednisone 20 mg tablet RxNorm: 145864 2 Tablet(s) PO daily 11/17/2017 Inactive Keflex 500 mg capsule RxNorm: 967188 1 Capsule(s) PO TID and take a probiotic BID x7days 11/07/2017 11/13/2017 Inactive take with probiotic BID amlodipine 5 mg tablet RxNorm: 877093 1 Tablet(s) PO daily 10/06/2018 Active cefdinir 300 mg capsule RxNorm: 593091 1 Capsule(s) PO BID 09/23/2017 Inactive cefdinir 300 mg capsule RxNorm: 888118 1 Capsule(s) PO BID started by Dr. Davila 09/14/2017 09/13/2017 Inactive betamethasone dipropionate 0.05 % topical cream RxNorm: 995210 1 Application TOP BID 08/29/2017 10/09/2017 Inactive mix with clotrimazole and apply to affected area clotrimazole 1 % topical cream RxNorm: 581581 1 Application TOP BID 08/29/2017 10/09/2017 Inactive mix with betamethasone and apply to affected area nystatin 100,000 unit/mL oral suspension RxNorm: 937460 5 Milliliter(s) PO QID 08/29/2017 09/17/2017 Inactive lisinopril 10 mg tablet RxNorm: 255649 1 Tablet(s) PO daily 11/14/2017 Inactive Kenalog 40 mg/mL suspension for injection RxNorm: 7358993 1 Milliliter(s) Inj 07/28/2017 07/28/2017 Inactive nystatin 100,000 unit/mL oral suspension RxNorm: 013516 5 Milliliter(s) PO QID 07/28/2017 08/06/2017 Inactive Keflex 500 mg capsule RxNorm: 197111 1 Capsule(s) PO TID 201708/03/2017 Inactive Flonase Allergy Relief 50 mcg/actuation nasal spray, suspension RxNorm: 9854577 USE ONE SPRAY(S) IN EACH NOSTRIL TWICE DAILY 07/25/2017 No Stop Date Active meclizine 25 mg tablet RxNorm: 028311 TAKE ONE TABLET BY MOUTH THREE TIMES DAILY NEEDED 07/25/2017 No Stop Date Active Voltaren 1 % topical gel RxNorm: 127987 1 Application TOP QID as needed 06/20/2017 No Stop Date Active Zithromax Z-Dylan 250 mg tablet RxNorm: 173648 1 Tablet(s) PO UD 06/20/2017 07/27/2017 Inactive z pack as directed Keflex 500 mg capsule RxNorm: 405358 1 Capsule(s) PO TID 201706/01/2017 Inactive Zithromax Z-Dylan 250 mg tablet RxNorm: 211238 1 Tablet(s) PO UD 04/27/2017 06/19/2017 Inactive z pack as directed lisinopril 10 mg tablet RxNorm: 372815 1 Tablet(s) PO daily 07/22/2017 Inactive Lipitor 10 mg tablet RxNorm: 428351 1 Tablet(s) PO QHS 201711/06/2017 Inactive Zithromax Z-Dylan 250 mg tablet RxNorm: 596255 1 Tablet(s) PO UD 02/15/2017 04/26/2017 Inactive z pack as directed meclizine 25 mg tablet RxNorm: 469353 TAKE ONE TABLET BY MOUTH THREE TIMES DAILY NEEDED 01/23/2017 07/24/2017 Inactive Zithromax Z-Dylan 250 mg tablet RxNorm: 121260 1 Tablet(s) PO UD 01/05/2017 02/14/2017 Inactive z pack as directed losartan 50 mg tablet RxNorm: 503038 1 Tablet(s) PO daily 201604/10/2017 Inactive amlodipine 5 mg tablet RxNorm: 966352 1 Tablet(s) PO daily 10/11/2017 Inactive Zithromax Z-Dylan 250 mg tablet RxNorm: 439176 1 Tablet(s) PO UD 12/16/2016 01/04/2017 Inactive z pack as directed Zyrtec 10 mg tablet RxNorm: 9935341 1 Tablet(s) PO daily 12/1601/14/2017 Inactive Lipitor 10 mg tablet RxNorm: 871754 1 Tablet(s) PO QHS 201602/22/2017 Inactive Zithromax Z-Dlyan 250 mg tablet RxNorm: 674361 1 Tablet(s) PO UD 09/27/2016 12/15/2016 Inactive z pack as directed Lipitor 10 mg tablet RxNorm: 714136 1 Tablet(s) PO QHS 201610/25/2016 Inactive guaifenesin 400 mg tablet RxNorm: 443542 1 Tablet(s) PO BID as needed 08/04/2016 No Stop Date Active cefdinir 300 mg capsule RxNorm: 569003 1 Capsule(s) PO BID started by Dr. Davila 08/04/2016 08/13/2016 Inactive amlodipine 10 mg tablet RxNorm: 526680 1 Tablet(s) PO daily 07/201612/21/2016 Inactive Keflex 500 mg capsule RxNorm: 622806 1 Capsule(s) PO TID 201607/27/2016 Inactive Xanax 0.25 mg tablet RxNorm: 445583 1 Tablet(s) PO TID as needed anxiety 07/01/2016 08/27/2016 Inactive Zyrtec 10 mg tablet RxNorm: 1184330 1 Tablet(s) PO daily 07/0107/30/2016 Inactive amlodipine 5 mg tablet RxNorm: 984529 1 Tablet(s) PO daily 06/201607/30/2016 Inactive Keflex 500 mg capsule RxNorm: 490849 1 Capsule(s) PO TID 201607/03/2016 Inactive Keflex 500 mg capsule RxNorm: 511460 1 Capsule(s) PO TID 201606/23/2016 Inactive Keflex 500 mg capsule RxNorm: 718295 1 Capsule(s) PO TID 201606/30/2016 Inactive Flonase Allergy Relief 50 mcg/actuation nasal spray, suspension RxNorm: 2210315 USE ONE SPRAY(S) IN EACH NOSTRIL TWICE DAILY 06/20/2016 05/15/2017 Inactive amlodipine 10 mg tablet RxNorm: 468771 1 Tablet(s) PO daily 04/201606/28/2016 Inactive Lipitor 10 mg tablet RxNorm: 230997 1 Tablet(s) PO QHS 201608/14/2016 Inactive Flonase Allergy Relief 50 mcg/actuation nasal spray, suspension RxNorm: 0759081 USE ONE SPRAY(S) IN EACH NOSTRIL TWICE DAILY 04/18/2016 05/17/2016 Inactive cephalexin 500 mg capsule RxNorm: 333491 1 Capsule(s) PO TID 04/05/2016 Inactive take with probiotics BID amlodipine 10 mg tablet RxNorm: 254748 1 Tablet(s) PO daily 02/201605/29/2016 Inactive Bactroban 2 % topical cream RxNorm: 170051 1 Application TOP BID 03/30/2016 04/08/2016 Inactive Zithromax Z-Dylan 250 mg tablet RxNorm: 303952 1 Tablet(s) PO UD 03/10/2016 05/15/2016 Inactive z pack as directed Keflex 500 mg capsule RxNorm: 671940 1 Capsule(s) PO TID 201502/25/2016 Inactive take with probiotics BID acyclovir 800 mg tablet RxNorm: 489571 1 Tablet(s) PO TID 01/2402/21/2016 Inactive Zithromax Z-Dylan 250 mg tablet RxNorm: 318550 1 Tablet(s) PO UD 01/19/2016 01/24/2016 Inactive z pack Flonase Allergy Relief 50 mcg/actuation nasal spray, suspension RxNorm: 3626532 USE ONE SPRAY(S) IN EACH NOSTRIL TWICE DAILY 12/28/2015 02/25/2016 Inactive Kenalog 40 mg/mL suspension for injection RxNorm: 7073416 Milliliter(s) Inj 12/18/2015 12/18/2015 Inactive Keflex 500 mg capsule RxNorm: 489861 1 Capsule(s) PO TID 201512/24/2015 Inactive Zithromax Z-Dylan 250 mg tablet RxNorm: 473284 1 Tablet(s) PO UD 12/09/2015 12/23/2015 Inactive z pack meclizine 25 mg tablet RxNorm: 830322 1 Tablet(s) PO TID as needed 12/09/2015 12/08/2015 Inactive meclizine 25 mg tablet RxNorm: 688258 1 Tablet(s) PO TID as needed 12/09/2015 02/26/2016 Inactive Keflex 500 mg capsule RxNorm: 959432 1 Capsule(s) PO TID 201511/22/2015 Inactive Cipro 500 mg tablet RxNorm: 675858 1 Tablet(s) PO BID 201511/13/2015 Inactive Keflex 500 mg capsule RxNorm: 128577 1 Capsule(s) PO TID 201510/30/2015 Inactive Xanax 0.25 mg tablet RxNorm: 661895 1 Tablet(s) PO TID as needed anxiety 09/18/2015 11/13/2015 Inactive Keflex 500 mg capsule RxNorm: 343984 1 Capsule(s) PO TID 201508/19/2015 Inactive losartan 50 mg tablet RxNorm: 298588 1 Tablet(s) PO daily 201507/07/2015 Inactive Pepcid 20 mg tablet RxNorm: 601079 1 Tablet(s) PO BID 201507/07/2015 Inactive Pepcid 20 mg tablet RxNorm: 886237 1 Tablet(s) PO BID 201501/31/2016 Inactive losartan 50 mg tablet RxNorm: 181531 1 Tablet(s) PO daily 201501/31/2016 Inactive prednisone 20 mg tablet RxNorm: 528229 2 Tablet(s) PO daily 06/22/2015 Inactive prednisone 20 mg tablet RxNorm: 162531 2 Tablet(s) PO daily 12/23/2015 Inactive Diflucan 100 mg tablet RxNorm: 383625 TAKE ONE TABLET BY MOUTH ONCE DAILY 06/12/2015 12/23/2015 Inactive Zithromax Z-Dylan 250 mg tablet RxNorm: 920872 1 Tablet(s) PO UD 06/05/2015 07/06/2015 Inactive z pack amlodipine 5 mg tablet RxNorm: 228198 1 Tablet(s) PO daily 03/29/2016 Inactive Zetia 10 mg tablet RxNorm: 840611 1 Tablet(s) PO daily 201506/14/2015 Inactive valsartan 160 mg tablet RxNorm: 995221 1 Tablet(s) PO daily 07/07/2015 Inactive Lipitor 10 mg tablet RxNorm: 076072 1 Tablet(s) PO QHS 201505/18/2015 Inactive Lipitor 10 mg tablet RxNorm: 639662 1 Tablet(s) PO QHS 201504/27/2015 Inactive Zithromax 250 mg tablet RxNorm: 616341 Tablet(s) PO UD 201504/28/2015 Inactive Keflex 500 mg capsule RxNorm: 998413 1 Capsule(s) PO TID 201503/22/2015 Inactive Keflex 500 mg capsule RxNorm: 163002 1 Capsule(s) PO TID 201504/01/2015 Inactive Xanax 0.25 mg tablet RxNorm: 576451 1 Tablet(s) PO TID as needed anxiety 03/12/2015 07/04/2016 Inactive carvedilol 25 mg tablet RxNorm: 506215 1 Tablet(s) PO BID 03/1201/31/2016 Inactive amlodipine 5 mg tablet RxNorm: 185045 1 Tablet(s) PO BID 201505/18/2015 Inactive Diflucan 100 mg tablet RxNorm: 397405 1 Tablet(s) PO daily 03/21/2015 Inactive Diflucan 100 mg tablet RxNorm: 908292 1 Tablet(s) PO daily 02/14/2015 Inactive Diflucan 100 mg tablet RxNorm: 001853 1 Tablet(s) PO daily 06/201401/05/2015 Inactive Diflucan 100 mg tablet RxNorm: 905243 1 Tablet(s) PO daily 06/201412/31/2014 Inactive nystatin 100,000 unit/mL oral suspension RxNorm: 496784 5 Milliliter(s) PO QID 12/24/2014 06/14/2015 Inactive nystatin 100,000 unit/mL oral suspension RxNorm: 712517 5 Milliliter(s) PO QID 12/24/2014 12/23/2014 Inactive Zithromax 250 mg tablet RxNorm: 397049 1 Tablet(s) PO daily 12/19/2014 Inactive Zithromax 250 mg tablet RxNorm: 356950 1 Tablet(s) PO daily 12/14/2014 Inactive Flonase Allergy Relief 50 mcg/actuation nasal spray, suspension RxNorm: 1 [place] NASAL BID 12/11/2014 12/10/2014 Inactive Flonase Allergy Relief 50 mcg/actuation nasal spray, suspension RxNorm: 4727105 1 [place] NASAL BID 12/11/20142015 Inactive amlodipine 5 mg tablet RxNorm: 205093 2 Tablet(s) PO daily 11/13/2014 Inactive amlodipine 5 mg tablet RxNorm: 541837 2 Tablet(s) PO daily 03/11/2015 Inactive Lotrisone 1 %-0.05 % topical cream RxNorm: 141467 1 TOP BID until healed 10/17/2014 10/30/2014 Inactive Lotrisone 1 %-0.05 % topical cream RxNorm: 745009 1 TOP BID until healed 10/16/2014 10/16/2014 Inactive Lotrisone 1 %-0.05 % topical cream RxNorm: 473592 1 TOP BID until healed 10/06/2014 10/15/2014 Inactive Keflex 500 mg capsule RxNorm: 476800 1 Capsule(s) PO TID 201408/11/2014 Inactive Keflex 500 mg capsule RxNorm: 042743 1 Capsule(s) PO TID 201408/18/2014 Inactive clotrimazole 1 % topical solution RxNorm: 425121 1 Drop(s) TOP BID No Start Date Active Vitamin D3 5,000 unit tablet RxNorm: 543130 1 Tablet(s) PO daily No Start Date Active guaifenesin 400 mg tablet RxNorm: 840141 1 Tablet(s) PO BID as needed No Start Date 08/03/2016 Inactive Lotrisone 1 %-0.05 % topical cream RxNorm: 882590 1 TOP BID until healed No Start Date 10/05/2014 Inactive lisinopril 40 mg tablet RxNorm: 496426 1 Tablet(s) PO daily No Start Date 05/18/2015 Inactive amlodipine 5 mg tablet RxNorm: 833096 1 Tablet(s) PO daily No Start Date 11/13/2014 Inactive indapamide 1.25 mg tablet RxNorm: 198248 1 Tablet(s) PO daily No Start Date 01/31/2016 Inactive aspirin 81 mg tablet RxNorm: 803646 1 Tablet(s) PO daily No Start Date 02/07/2017 Inactive Medication Administered Medication Codes Instructions Start Date Status Kenalog 40 mg/mL suspension for injection RxNorm: 3297972 1Milliliter 07/28/2017 No longer Active Kenalog 40 mg/mL suspension for injection RxNorm: 5604776 Milliliter 12/18/2015 No longer Active Immunizations Vaccine [...] Code Item Item Code Result Date %Hba1C Uvi212 % HbA1c 51429-3 6.5 % 12/01/2016 %Hba1C Ylz234 Gluc Ave 140 mg/dL 12/01/2016 Lipid Ord30 [...] 93.3 fl 04/12/2016 Cbc With Differential Ord2 [place]% 13.3 % 04/12/2016 Cbc With Differential Ord2 [...] 2.85 K/ul 04/12/2016 Cbc With Differential Ord2 [place] ABS# 1.1 K/ul 04/12/2016 Cbc With Differential Ord2 Eos ABS# 0.1 K/ul 04/12/2016 Cbc With Differential Ord2 Baso ABS# 0.0 K/ul 04/12/2016 Comp Metabolic Jin329 NA 129 mEq/L 04/12/2016 Comp Metabolic Cbe509 K 4.0 mEq/L 04/12/2016 Comp Metabolic Heq643 CL 93 mEq/L 04/12/2016 Comp Metabolic Nyv598 CO2 29.0 mEq/L 04/12/2016 Comp Metabolic Gba934 ANION GAP 11 04/12/2016 Comp Metabolic Fki423 GLUCOSE 100 mg/dL 04/12/2016 Comp Metabolic Tdl742 Creat 1.0 mg/dL 04/12/2016 Comp Metabolic Cuo310 eGFR 55 ml/min/1.73m2 04/12/2016 Comp Metabolic Hvm327 BUN 19 mg/dL 04/12/2016 Comp Metabolic Dzx968 B/C Ratio 18.8 Ratio 04/12/2016 Comp Metabolic Pqd296 CALCIUM 9.3 mg/dL 04/12/2016 Comp Metabolic Gsw579 ALK PHOS 38 U/L 04/12/2016 Comp Metabolic Gsp779 AST(SGOT) 17 U/L 04/12/2016 Comp Metabolic Aow705 ALT(SGPT) 11 U/L 04/12/2016 Comp Metabolic Mwl511 BILI T 1.0 mg/dL 04/12/2016 Comp Metabolic Tps578 ALBUMIN 4.2 g/dL 04/12/2016 Comp Metabolic Qhb951 TPRO 6.6 g/dL 04/12/2016 Comp Metabolic Ing876 GLOB 2.4 g/dL 04/12/2016 Comp Metabolic Yyq982 A/G Ratio 1.8 Ratio 04/12/2016 Comp Metabolic Wnu834 Osmo 261 mOsmo 04/12/2016 Lipid Ord30 CHOL 265 mg/dL 04/12/2016 Lipid Ord30 HDL 42.0 mg/dl 04/12/2016 Lipid Ord30 TRIG 246 mg/dL 04/12/2016 Lipid Ord30 LDL 174 mg/dL 04/12/2016 Lipid Ord30 C/HDL 6.3 Ratio 04/12/2016 Tsh Ord6 hTSH II 2.49 uIU/mL 04/12/2016 Tsh Ord6 hTSH II 1.83 uIU/mL 06/12/2015 Comp Metabolic Zed375 NA 137 mEq/L 06/12/2015 Comp Metabolic Fhp056 K 4.4 mEq/L 06/12/2015 Comp Metabolic Cju710 CL 103 mEq/L 06/12/2015 Comp Metabolic Uqr396 CO2 27.0 mEq/L 06/12/2015 Comp Metabolic Exo794 ANION GAP 11 06/12/2015 Comp Metabolic Zfk819 GLUCOSE 87 mg/dL 06/12/2015 Comp Metabolic Tuk099 Creat 1.3 mg/dL 06/12/2015 Comp Metabolic Uzi229 eGFR 43 ml/min/1.73m2 06/12/2015 Comp Metabolic Ybm159 BUN 32 mg/dL 06/12/2015 Comp Metabolic Wul053 B/C Ratio 25.4 Ratio 06/12/2015 Comp Metabolic Gfx093 CALCIUM 9.5 mg/dL 06/12/2015 Comp Metabolic Yuz914 ALK PHOS 36 U/L 06/12/2015 Comp Metabolic Acn386 AST(SGOT) 16 U/L 06/12/2015 Comp Metabolic Waa466 ALT(SGPT) 17 U/L 06/12/2015 Comp Metabolic Zji604 BILI T 1.0 mg/dL 06/12/2015 Comp Metabolic Mks051 ALBUMIN 4.1 g/dL 06/12/2015 Comp Metabolic Rpr913 TPRO 6.5 g/dL 06/12/2015 Comp Metabolic Xha374 GLOB 2.5 g/dL 06/12/2015 Comp Metabolic Wtu856 A/G Ratio 1.7 Ratio 06/12/2015 Comp Metabolic Ivd294 Osmo 280 mOsmo 06/12/2015 Lipid Ord30 CHOL [...] 30.6 pg 06/12/2015 Cbc With Differential Ord2 [place]% 11.0 % 06/12/2015 Cbc With Differential Ord2 [...] 1.96 K/ul 06/12/2015 Cbc With Differential Ord2 [place] ABS# 0.9 K/ul 06/12/2015 Cbc With Differential [...] 94.5 fl 03/12/2015 Cbc With Differential Ord2 [place]% 10.7 % 03/12/2015 Cbc With Differential Ord2 [...] 2.00 K/ul 03/12/2015 Cbc With Differential Ord2 [place] ABS# 1.0 K/ul 03/12/2015 Cbc With Differential Ord2 Eos ABS# 0.1 K/ul 03/12/2015 Cbc With Differential Ord2 Baso ABS# 0.0 K/ul 03/12/2015 Cbc With Differential Ord2 New Analyzer Notice Please note new ref ranges starting 03-11-2015 due to implemntation of new five part differential hematolgy analyzer. 03/12/2015 Comp Metabolic Aph474 NA 139 mEq/L 03/12/2015 Comp Metabolic Qri303 K 4.2 mEq/L 03/12/2015 Comp Metabolic Alm097 CL 101 mEq/L 03/12/2015 Comp Metabolic Feu213 CO2 28.0 mEq/L 03/12/2015 Comp Metabolic Vit192 ANION GAP 14 03/12/2015 Comp Metabolic Tnq076 GLUCOSE 78 mg/dL 03/12/2015 Comp Metabolic Pnz436 Creat 1.1 mg/dL 03/12/2015 Comp Metabolic Sdg674 eGFR 51 ml/min/1.73m2 03/12/2015 Comp Metabolic Ttb419 BUN 17 mg/dL 03/12/2015 Comp Metabolic Rqo026 B/C Ratio 15.6 Ratio 03/12/2015 Comp Metabolic Ddm886 CALCIUM 9.4 mg/dL 03/12/2015 Comp Metabolic Srv143 ALK PHOS 46 U/L 03/12/2015 Comp Metabolic Lys374 AST(SGOT) 16 U/L 03/12/2015 Comp Metabolic Ggo694 ALT(SGPT) 12 U/L 03/12/2015 Comp Metabolic Oqg719 BILI T 0.8 mg/dL 03/12/2015 Comp Metabolic Zxm820 ALBUMIN 4.1 g/dL 03/12/2015 Comp Metabolic Yqn382 TPRO 6.6 g/dL 03/12/2015 Comp Metabolic Pja600 GLOB 2.6 g/dL 03/12/2015 Comp Metabolic Dum218 A/G Ratio 1.6 Ratio 03/12/2015 Comp Metabolic Nzg494 Osmo 278 mOsmo 03/12/2015 Lipid Ord30 CHOL [...] hTSH II 3.15 uIU/mL 12/01/2014 Comp Metabolic Amr521 NA 132 mEq/L 12/01/2014 Comp Metabolic Tmx852 K 4.4 mEq/L 12/01/2014 Comp Metabolic Qbf392 CL 99 mEq/L 12/01/2014 Comp Metabolic Wib248 CO2 27.0 mEq/L 12/01/2014 Comp Metabolic Ofx896 ANION GAP 10 12/01/2014 Comp Metabolic Nwx092 GLUCOSE 86 mg/dL 12/01/2014 Comp Metabolic Kri331 Creat 1.2 mg/dL 12/01/2014 Comp Metabolic Vys545 eGFR 46 ml/min/1.73m2 12/01/2014 Comp Metabolic Kcj794 BUN 32 mg/dL 12/01/2014 Comp Metabolic Qup458 B/C Ratio 27.1 Ratio 12/01/2014 Comp Metabolic Exr718 CALCIUM 9.4 mg/dL 12/01/2014 Comp Metabolic Kxk104 ALK PHOS 35 U/L 12/01/2014 Comp Metabolic Hqe205 AST(SGOT) 14 U/L 12/01/2014 Comp Metabolic Bvb152 ALT(SGPT) 13 U/L 12/01/2014 Comp Metabolic Acn632 BILI T 0.8 mg/dL 12/01/2014 Comp Metabolic Eou399 ALBUMIN 4.0 g/dL 12/01/2014 Comp Metabolic Yde566 TPRO 6.8 g/dL 12/01/2014 Comp Metabolic Fwh356 GLOB 2.8 g/dL 12/01/2014 Comp Metabolic Isi028 A/G Ratio 1.4 Ratio 12/01/2014 Comp Metabolic Llf957 Osmo 271 mOsmo 12/01/2014 Review of Systems [...] FLU VACC PRSV FREE INC ANTIG CPT-4: 60993 11/13/2017 ADMIN INFLUENZA VIRUS VAC CPT-4: G0008 11/13/2017 TRIAMCINOLONE ACET INJ NOS CPT-4: J3301 07/28/2017 PPPS, SUBSEQ VISIT CPT -4: G0439 02/08/2017 URINALYSIS NONAUTO W/O SCOPE CPT-4: 83648 08/15/2016 PPPS, SUBSEQ VISIT CPT -4: G0439 02/01/2016 TRIAMCINOLONE ACET INJ NOS CPT-4: J3301 12/18/2015 ADMIN INFLUENZA VIRUS VAC CPT-4: G0008 11/26/2015 FLU VACC 4 GISELA 3 YRS PLUS IM Formatting Model/CDA Sections, Assigned to/Malina Mazariegos SNOMED CT: [id number] CPT-4: 81216Mwavvhd 11/26/2015 URINALYSIS NONAUTO W/O SCOPE CPT-4: 66912 11/20/2015 URINALYSIS NONAUTO W/O SCOPE CPT-4: 99865 11/13/2015 IMMUNIZATION ADMIN CPT -4: 78090 12/01/2014 FLU VACC 4 GISELA 3 YRS PLUS IM Formatting Model/CDA Sections, Assigned to/Malina Mazariegos SNOMED CT: 87649230 CPT-4: 42520Fyuerpd 12/01/2014 Vital Signs Date Vital 02/06/2018 Blood Pressure 1: 142/60 Code : 8480-6 BMI: 25.3 Code : 36684-8 Heart Rate 1 : 68 bpm Height: 5'1" SpO2: 99% Temperature: 37.0 (C) / 98.6 (F) Weight: 134 lbs 12/08/2017 Blood Pressure 1: 140/52 Code : 8480-6 BMI: 25.5 Code : 33626-0 Heart Rate 1 : 77 bpm Height: 5'1" SpO2: 96% Temperature: 36.6 (C) / 97.9 (F) Weight: 135 lbs 11/13/2017 Blood Pressure 1: 134/54 Code : 8480-6 BMI: 24.8 Code : 16878-3 Heart Rate 1 : 73 bpm Height: 5'1" SpO2: 98% Weight: 131 lbs 08/29/2017 Blood Pressure 1: 162/64 Code : 8480-6 BMI: 24.9 Code : 70518-6 Heart Rate 1 : 61 bpm Height: 5'1" SpO2: 96% Weight: 132 lbs 07/28/2017 Blood Pressure 1: 148/62 Code : 8480-6 BMI: 25.1 Code : 36385-9 Heart Rate 1 : 67 bpm Height: 5'1" SpO2: 99% Temperature: 36.4 (C) / 97.5 (F) Weight: 133 lbs 06/20/2017 Blood Pressure 1: 140/52 Code : 8480-6 BMI: 25.3 Code : 93440-3 Heart Rate 1 : 64 bpm Height: 5'1" SpO2: 98% Weight: 134 lbs 05/26/2017 Blood Pressure 1: 140/56 Code : 8480-6 BMI: 25.7 Code : 69494-1 Heart Rate 1 : 74 bpm Height: 5'1" SpO2: 95% Weight: 136 lbs 04/24/2017 Blood Pressure 1: 140/68 Code : 8480-6 BMI: 24.6 Code : 46924-9 Heart Rate 1 : 67 bpm Height: 5'1" SpO2: 97% Weight: 130 lbs 02/08/2017 Blood Pressure 1: 134/76 Code : 8480-6 BMI: 24.9 Code : 78839-0 Heart Rate 1 : 67 bpm Height: 5'1" SpO2: 98% Waist Measure (cm): 43864 cm Weight: 132 lbs 12/22/2016 Blood Pressure 1: 156/80 Code : 8480-6 BMI: 24.2 Code : 74343-6 Heart Rate 1 : 65 bpm Height: 5'1" SpO2: 98% Weight: 128 lbs 12/16/2016 Blood Pressure 1: 138/62 Code : 8480-6 BMI: 23.8 Code : 12995-8 Heart Rate 1 : 63 bpm Height: 5'1" SpO2: 98% Weight: 126 lbs 08/15/2016 Blood Pressure 1: 130/60 Code : 8480-6 BMI: 25.3 Code : 22512-5 Heart Rate 1 : 72 bpm Height: 5'1" SpO2: 95% Weight: 134 lbs 08/02/2016 Blood Pressure 1: 160/62 Code : 8480-6 BMI: 25.3 Code : 80679-2 Heart Rate 1 : 67 bpm Height: 5'1" SpO2: 97% Weight: 134 lbs 07/21/2016 Blood Pressure 1: 148/66 Code : 8480-6 BMI: 25.9 Code : 87355-5 Heart Rate 1 : 71 bpm Height: 5'1" SpO2: 97% Temperature: 36.8 (C) / 98.2 (F) Weight: 137 lbs 07/01/2016 Blood Pressure 1: 142/72 Code : 8480-6 BMI: 26.5 Code : 11349-4 Heart Rate 1 : 68 bpm Height: 5'1" SpO2: 94% Weight: 140 lbs 05/16/2016 Blood Pressure 1: 138/68 Code : 8480-6 Blood Pressure 1: 162/76 Code: 8480-6 BMI: 25.7 Code: 39208-4 Heart Rate 1: 58 bpm Height: 5'1" SpO2: 98% Weight: 136 lbs 04/06/2016 Blood Pressure 1: 138/74 Code : 8480-6 Blood Pressure 1: 162/72 Code: 8480-6 BMI: 25.7 Code: 86998-1 Heart Rate 1: 75 bpm Height: 5'1" SpO2: 97% Weight: 136 lbs 03/30/2016 Blood Pressure 1: 188/80 Code : 8480-6 BMI: 26.3 Code : 76016-7 Heart Rate 1 : 75 bpm Height: 5'1" SpO2: 98% Weight: 139 lbs 02/01/2016 Blood Pressure 1: 140/72 Code : 8480-6 BMI: 25.3 Code : 93825-1 Heart Rate 1 : 65 bpm Height: 5'1" SpO2: 97% Waist Measure (cm): 84 cm Weight: 134 lbs 01/25/2016 Blood Pressure 1: 140/74 Code : 8480-6 BMI: 25.1 Code : 87473-9 Heart Rate 1 : 66 bpm Height: 5'1" SpO2: 98% Weight: 133 lbs 12/24/2015 Blood Pressure 1: 142/66 Code : 8480-6 BMI: 24.9 Code : 31494-0 Heart Rate 1 : 54 bpm Height: 5'1" SpO2: 97% Weight: 132 lbs 12/18/2015 Blood Pressure 1: 152/62 Code : 8480-6 BMI: 25.5 Code : 69270-9 Heart Rate 1 : 66 bpm Height: 5'1" SpO2: 96% Weight: 135 lbs 12/11/2015 Blood Pressure 1: 136/54 Code : 8480-6 Heart Rate 1: 72 bpm SpO2: 98% Weight: 137 lbs 11/26/2015 Blood Pressure 1: 142/70 Code : 8480-6 BMI: 25.3 Code : 86455-8 Heart Rate 1 : 64 bpm Height: 5'1" SpO2: 97% Weight: 134 lbs 11/20/2015 Blood Pressure 1: 154/70 Code : 8480-6 Heart Rate 1: 65 bpm SpO2: 98% 10/23/2015 Blood Pressure 1: 138/62 Code : 8480-6 Heart Rate 1: 55 bpm SpO2: 98% 10/21/2015 Blood Pressure 1: 142/68 Code : 8480-6 BMI: 25.7 Code : 76166-1 Heart Rate 1 : 73 bpm Height: 5'1" SpO2: 98% Weight: 136 lbs 07/15/2015 Blood Pressure 1: 130/60 Code : 8480-6 BMI: 26.6 Code : 10864-6 Heart Rate 1 : 70 bpm Height: 5'1" SpO2: 97% Weight: 141 lbs 06/15/2015 Blood Pressure 1: 118/64 Code : 8480-6 BMI: 24.9 Code : 56754-1 Heart Rate 1 : 66 bpm Height: 5'1" SpO2: 99% Weight: 132 lbs 06/05/2015 Blood Pressure 1: 142/60 Code : 8480-6 Blood Pressure 1: 135/58 Code: 8480-6 Heart Rate 1: 64 bpm SpO2: 99% 05/19/2015 Blood Pressure 1: 146/60 Code : 8480-6 BMI: 27.1 Code : 02652-5 Heart Rate 1 : 66 bpm Height: 5'1" SpO2: 97% Weight: 143 lbs 8 oz 04/24/2015 Blood Pressure 1: 148/58 Code : 8480-6 BMI: 25.9 Code : 36067-4 Heart Rate 1 : 61 bpm Height: 5'1" SpO2: 98% Weight: 137 lbs 03/12/2015 Blood Pressure 1: 140/72 Code : 8480-6 BMI: 25.1 Code : 89640-7 Heart Rate 1 : 68 bpm Height: 5'1" SpO2: 98% Weight: 133 lbs 01/12/2015 Blood Pressure 1: 146/60 Code : 8480-6 BMI: 25.7 Code : 45175-7 Heart Rate 1 : 48 bpm Height: 5'1" SpO2: 97% Weight: 136 lbs 12/11/2014 Blood Pressure 1: 125/65 Code : 8480-6 Blood Pressure 1: 144/56 Code: 8480-6 BMI: 25.1 Code: 25214-6 Heart Rate 1: 56 bpm Height: 5'1" SpO2: 96% Weight: 133 lbs 12/01/2014 Blood Pressure 1: 136/60 Code : 8480-6 Heart Rate 1: 56 bpm SpO2: 96% Weight: 131 lbs 5 oz 08/14/2014 Blood Pressure 1: 132/72 Code : 8480-6 BMI: 25.5 Code : 70888-6 Heart Rate 1 : 73 bpm Height: [...] Other allergic rhinitis[ICD10: J30.89] Evelyn Cohen MD, [facility] CPT-4: 19664 02/06/2018 [id number] EST. PATIENT, LEVEL III Diagnosis: Other allergic rhinitis[ICD10: J30.89] Diagnosis: Other acute sinusitis[ICD10: J01.80] Evelyn Cohen MD, [facility] CPT-4: 37860 12/08/2017 ([id number]) [id number] EST. PATIENT, LEVEL IV Diagnosis: Essential (primary) hypertension[ICD10: I10] Diagnosis: Chronic maxillary sinusitis[ICD10: J32.0] Diagnosis: Mixed hyperlipidemia[ICD10: E78.2] Diagnosis: Other abnormal glucose[ICD10: R73.09] Berenice Cohen MD, [facility] [facility] 07857 11/13/2017 ([id number]) 55722 EST. PATIENT, LEVEL III Diagnosis: Tinea corporis[ICD10: B35.4] Diagnosis: Essential (primary) hypertension[ICD10: I10] Doris Cohen MD, [facility] CPT-4: 10770 08/29/2017 ([id number]) 22948 EST. PATIENT, LEVEL III Diagnosis: Acute recurrent maxillary sinusitis[ICD10: J01.01] Diagnosis: Other allergic rhinitis[ICD10: J30.89] Doris Cohen MD, [facility] CPT-4: 87034 07/28/2017 74727 EST. PATIENT, LEVEL IV Diagnosis: Other acute sinusitis[ICD10: J01.80] Diagnosis: Other allergic rhinitis[ICD10: J30.89] Diagnosis: Otalgia, bilateral[ICD10: H92.03] Diagnosis: Pain in right knee[ICD10: M25.561] Diagnosis: Pain in left knee[ICD10: M25.562] Evelyn Cohen MD, [facility] CPT -4: 13370 06/20/2017 25360 EST. PATIENT, LEVEL IV Diagnosis: Other acute sinusitis[ICD10: J01.80] Diagnosis: Other allergic rhinitis[ICD10: J30.89] Diagnosis: Gastro-esophageal reflux disease without esophagitis[ICD10: K21.9] Evelyn Cohen MD, [facility] CPT-4: 68421 05/26/2017 93970 EST. PATIENT, LEVEL III Diagnosis: Essential (primary) hypertension[ICD10: I10] Evelyn Cohen MD, [facility] CPT-4: 82471 04/24/2017 ([id number]) 01602 EST. PATIENT, LEVEL IV Diagnosis: Essential (primary) hypertension[ICD10: I10] Diagnosis: Other abnormal glucose[ICD10: R73.09] Diagnosis: Mixed hyperlipidemia[ICD10: E78.2] Berenice Cohen MD, [facility] CPT-4: 62192 12/22/2016 21729 EST. PATIENT, LEVEL IV Diagnosis: Other acute sinusitis[ICD10: J01.80] Diagnosis: Other allergic rhinitis[ICD10: J30.89] Evelyn Cohen MD, [facility] CPT-4: 56260 12/16/2016 ([id number]) 25634 EST. PATIENT, LEVEL IV Diagnosis: Essential (primary) hypertension[ICD10: I10] Diagnosis: Mixed hyperlipidemia[ICD10: E78.2] Diagnosis: Dysuria[ICD10: R30.0] Berenice Cohen MD, [facility] CPT-4: 61990 08/15/2016 76418 EST. PATIENT, LEVEL III Diagnosis: Other acute sinusitis[ICD10: J01.80] Diagnosis: Other allergic rhinitis[ICD10: J30.89] Diagnosis: Otalgia, bilateral[ICD10: H92.03] Evelyn Cohen MD, [facility] CPT -4: 86648 08/02/2016 ([id number]) 25205 EST. PATIENT, LEVEL III Diagnosis: Acute recurrent maxillary sinusitis[ICD10: J01.01] Diagnosis: Otalgia, right ear[ICD10: H92.01] Doris Cohen MD, [facility] CPT-4: 16403 07/21/2016 32896 EST. PATIENT, LEVEL III Diagnosis: Dysuria[ICD10: R30.0] Diagnosis: Other allergic rhinitis[ICD10: J30.89] Evelyn Cohen MD, [facility] CPT-4: 46771 07/01/2016 ([id number]) 49752 EST. PATIENT, LEVEL IV Diagnosis: Essential (primary) hypertension[ICD10: I10] Diagnosis: Mixed hyperlipidemia[ICD10: E78.2] Berenice Cohen MD [facility] CPT-4: 31091 05/16/2016 47704 EST. PATIENT, LEVEL III Diagnosis: Mixed hyperlipidemia[ICD10: E78.2] Diagnosis: Essential (primary) hypertension[ICD10: I10] Diagnosis: Laceration without foreign body of left hand, subsequent encounter[ ICD10: S61.412D] Evelyn Cohen MD, [facility] CPT-4: 58640 04/06/2016 ([id number]) 05992 EST. PATIENT, LEVEL III Diagnosis: Essential (primary) hypertension[ICD10: I10] Berenice Cohen MD, [facility] CPT-4: 03169 03/30/2016 ([id number]) 28820 EST. 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 PATIENT, LEVEL III Diagnosis: Essential (primary) hypertension[ICD10: I10] Berenice Cohen MD, [facility] CPT-4: 81990 12/24/2015 81798 EST. PATIENT, LEVEL III Diagnosis: Other acute sinusitis[ICD10: J01.80] Diagnosis: Other allergic rhinitis[ICD10: J30.89] Evelyn Cohen MD, [facility] CPT-4: 96648 12/18/2015 ([id number]) Miscellaneous no charge Diagnosis: Essential (primary) hypertension[ICD10: I10] Evelyn Cohen MD, [facility] CPT-4: 48040 12/11/2015 ([id number]) 44855 EST. PATIENT, LEVEL IV Diagnosis: Essential (primary) hypertension[ICD10: I10] Diagnosis: Other abnormal glucose[ICD10: R73.09] Diagnosis: Encounter for immunization[ICD10: Z23] Berenice Cohen MD, [facility] CPT-4: 02481 11/26/2015 ([id number]) Miscellaneous no charge Diagnosis: Bitten by dog, initial encounter[ICD10: W54.0XXA] Evelyn Cohen MD, [facility] CPT-4: 80245 10/29/2015 ([id number]) Miscellaneous no charge Diagnosis: Essential (primary) hypertension[ICD10: I10] Diagnosis: Bitten by dog, initial encounter[ICD10: W54.0XXA] Evelyn Cohen MD, [facility] CPT-4: 23676 10/23/2015 14131 EST. PATIENT, LEVEL III Diagnosis: Cellulitis of face[ICD10: L03.211] Diagnosis: Bitten by dog, initial encounter[ICD10: W54.0XXA] Evelyn Cohen MD, [facility] CPT-4: 05847 10/21/2015 ([id number]) Miscellaneous no charge Diagnosis: Essential (primary) hypertension[ICD10: I10] Evelyn Cohen MD, [facility] CPT-4: 57525 07/15/2015 ([id number]) 58301 EST. PATIENT, LEVEL IV Diagnosis: Essential (primary) hypertension[ICD10: I10] Diagnosis: Mixed hyperlipidemia[ICD10: E78.2] Diagnosis: Dry mouth, unspecified[ICD10: R68.2] Berenice Cohen MD, [facility] CPT-4: 79171 06/15/2015 ([id number]) Miscellaneous no charge Diagnosis: Essential (primary) hypertension[ICD10: I10] Doris Cohen MD, [facility] CPT-4: 38403 06/05/2015 ([id number]) 83802 EST. PATIENT, LEVEL IV Diagnosis: Mammographic microcalcification found on diagnostic imaging of breast [ICD10: R92.0] Diagnosis: Edema, unspecified[ICD10: R60.9] Diagnosis: Essential (primary) hypertension[ICD10: I10] Berenice Cohen MD, [facility] CPT-4: 08768 05/19/2015 69743 EST. PATIENT, LEVEL IV Diagnosis: Other acute sinusitis[ICD10: J01.80] Diagnosis: Acute nasopharyngitis [common cold][ICD10: J00] Diagnosis: Other allergic rhinitis[ICD10: J30.89] Diagnosis: Localized edema[ICD10: R60.0] Diagnosis: Mixed hyperlipidemia[ICD10: E78.2] Evelyn Cohen MD, [facility] CPT-4: 61637 04/24/2015 ([id number]) 52606 EST. PATIENT, LEVEL IV Diagnosis: Essential (primary) hypertension[ICD10: I10] Diagnosis: Abscess of liver[ICD10: K75.0] Diagnosis: Anemia, unspecified[ICD10: D64.9] Berenice Cohen MD, [facility] CPT-4: 51453 03/12/2015 68634 EST. PATIENT, LEVEL IV Diagnosis: Essential (primary) hypertension[ICD10: I10] Diagnosis: Candidal stomatitis[ICD10: B37.0] Diagnosis: Pain in unspecified knee[ICD10: M25.569] Diagnosis: Edema, unspecified[ICD10: R60.9] Evelyn Cohen MD, [facility] CPT- 4: 95044 01/12/2015 ([id number]) 88137 EST. PATIENT, LEVEL III Diagnosis: Pain in right foot[ICD10: M79.671] Berenice Cohen MD, [facility] CPT-4: 48568 12/11/2014 ([id number]) 25772 EST. PATIENT, LEVEL IV Diagnosis: Abscess of liver[ICD10: K75.0] Diagnosis: Hypo-osmolality and hyponatremia[ICD10: E87.1] Diagnosis: Essential (primary) hypertension[ICD10: I10] Diagnosis: VACCIN FOR INFLUENZA[ICD10: Z23] Berenice Cohen MD, [facility] CPT-4: 80988 12/01/2014 ([id number]) OFFICE VISIT, NEW - LEVEL 4 Diagnosis: ESSENTIAL HYPERTENSION[ICD9: 401.9] Diagnosis: Chronic maxillary sinusitis[ICD9: 473.0] Berenice Cohen MD, [facility] CPT-4: 03090 08/14/2014 Plan of Care Planned Activity Notes [...] allergy spray. 02/06/2018 Appointment: Evelyn West WPtel: [address] [place] [address] (15 min) Moderate 02/06/2018 Patient Education: Patient Medication Summary Completed 02/06/2018 Patient Education: Patient Medication Summary Completed 12/29/2017 Care Plan: %Hba1C [facility] : 50580-8 Pending 12/11/2017 Visit Plan: Sinusitis - Pt [...] Evelyn West WPtel: [facility] (15 min) Moderate 12/08/2017 Patient Education: Patient [...] shot today 11/13/2017 Appointment: Berenice Cohen WPtel: [facility]1 [facility] (15 min) Moderate 11/13/2017 Patient Education: Patient Medication Summary Completed 11/13/2017 Patient Education: Cholesterol Management Completed 11/13/2017 Visit Plan: Tinea-rx sent to patient's pharmacy and instructed on use-keep groin clean/dry -call if symptoms do not resolve or if any worse HTN-elevated today-monitor and home and call if continues to be elevated 08/29/2017 Appointment: Doris Sheffield WPtel: [facility]3 [phone] (15 min) Moderate 08/29/2017 Patient Education: [...] worse 07/28/2017 Appointment: Doris Sheffield WPtel: [phone] [phone] (30 min) Complex 07/28/2017 Patient Education: [...] Evelyn West WPtel: [facility]5 [facility] (15 min) Moderate 06/20/2017 Patient Education: [...] improving. 05/26/2017 Appointment: Evelyn West WPtel: [phone] [facility] (15 min) Moderate 05/26/2017 Patient Education: [...] acute concerns. 04/24/2017 Appointment: Evelyn West WPtel: [phone] [facility] (30 min) Complex 04/24/2017 Patient Education: [...] surrogate. 02/08/2017 App[facility]ment[phone] [facility] - Annual Wellness Visit 02/08/2017 [...] Berenice Cohen WPtel: [facility] (15 min) Moderate 12/22/2016 Patient Education: [...] Evelyn West WPtel: [facility] (30 min) Complex 12/16/2016 Patient Education: Patient Medication Summary Completed 12/16/2016 Appointment: Berenice Cohen WPtel: [address] [place], [place] [id number] (15 min) Moderate 11/15/2016 Visit Plan: [...] on carbohydrates. 08/15/2016 Appointment: Berenice Cohen WPtel: [facility]9 [facility] (15 min) Moderate 08/15/2016 Patient Education: Patient Medication Summary Completed 08/15/2016 Appointment: Doris Sheffield WPtel: [phone] (15 min) Moderate 08/05/2016 Visit Plan: [...] show improvement. 08/02/2016 Appointment: Evelyn West WPtel: [facility] (30 min) Complex 08/02/2016 Patient Education: [...] flushed 07/21/2016 Appointment: Doris Sheffield WPtel: [phone] [phone] (15 min) Moderate 07/21/2016 Patient Education: [...] 10mg nightly. 05/16/2016 App[facility]ment: [phone] (15 min) Moderate [...] concerns. 04/06/2016 Appointment: [phone] (10 min) Simple 04/06/2016 Patient [...] daily. 03/30/2016 Appointment: [phone] [place] (15 min) Moderate 03/30/2016 Patient Education: Patient Medication Summary Completed 03/30/2016 Appointment: [phone] (15 min) Moderate 03/24/2016 Visit Plan: Medicare [...] Evelyn West WPtel: [facility] [place] [address] - Annual Wellness Visit 02/01/2016 Patient Education: Patient Medication Summary Completed 02/01/2016 Visit Plan: Apthous ulcer - rx for acyclovir 800mg tid x7 days Sample of Voltaren gel to use on knees tid prn 01/25/2016 Appointment: Berenice Cohen WPtel: [facility]8 [facility] (15 min) Moderate 01/25/2016 Patient Education: Patient Medication Summary Completed 01/25/2016 Visit Plan: Hypertension - well controlled - continue with current medications, continue with no added salt diet. Pt has been encouraged to exercise daily. The pt has been advised to call the office if there are any acute concerns about change in blood pressure readings at home. 12/24/2015 Appointment: Berenice Cohen WPtel: [facility] (15 min) Moderate 12/24/2015 Patient Education: Patient [...] improvement. 12/18/2015 Appointment: Doris Sheffield WPtel: [phone] [phone] (15 min) Moderate 12/18/2015 Patient Education: [...] - 11/26/2015 Appointment: Berenice Cohen [facility]Ptel: [phone] [facility] [...] pain. 10/21/2015 Appointment: Doris Sheffield WPtel: [phone] [phone] [place] (15 min) Moderate 10/21/2015 Patient [...] spray 06/15/2015 Appointment: [phone] (15 min) Moderate 06/15/2015 Patient Education: Patient Medication Summary Completed 06/15/2015 Patient Education: Patient Medication Summary Completed 06/12/2015 Appointment: [facility] Cohen [facility]el[phone] [place] (15 min) Moderate 06/11/2015 Appointment: Nurse [...] Berenice Cohen WPtel: [facility] (15 min) Moderate 03/12/2015 Patient Education: Patient [...] appointment with then soon. Pt to try Dallas Charlemont rub on the knees to help reduce [...] is sore 12/11/2014 Appointment: Berenice Cohen WPtel: [address] [place] [address] (15 min) Moderate 12/11/2014 Patient Education: Patient [...] not improving. 12/01/2014 Appointment: Berenice Cohen WPtel: [address] [place], [place] [address] (15 min) Moderate 12/01/2014 Patient Education: Patient Medication Summary Completed 12/01/2014 Patient Education: Hypertension Completed 12/01/2014 Appointment: Berenice Cohen WPtel: [address] [place] [address] (15 min) Moderate 09/15/2014 Visit Plan: Hypertension [...] improve. 08/14/2014 Appointment: [facility] Cohen [facility]el: [phone] [place] (S) New Patient 08/14/2014 Patient Education: [...] foot where it is sore [employer] kit calculation reviewer will contact you for a colon screen test - it is a colon cancer screening that you will do at home and send in to the calculation reviewer. . No fracture of foot - recommended [...] TWO hours after a meal - try [place] Charlemont on your knee. Decrease Salt in diet. [...] appointment with then soon. Pt to try [place] Charlemont rub on the knees to help reduce [...]
--- OUTSIDE RECORDS SUMMARY | 2018-06-30 14:57 | XMS REPORT | CCD ---
Author Author Berenice Cohen Organization Berenice Cohen MD, [facility] Address [address] [place] [address] Phone Care Team Providers Care Extract Operator Name Role Phone PP Unavailable CCM Unavailable Summary Purpose Interface Exchange Insurance Providers Payer name Policy type / Coverage type Covered constitution party ID Effective Begin Date Effective End Date [employer] Commercial Insurance [id number] Unknown Unknown Family history Son Diagnosis Age [...] Unknown Retired 08/14/[address]: 960429655 Never smoker 08/14/[address]: 527424727 Never drinks alcohol 08/14/2014 Allergies, Adverse Reactions, Alerts Substance Reaction Codes Entered Date Inactivated Date Status AUGMENTIN hives, RxNorm: 859116 08/14/2014 No Inactive Date Active [id number] REDUCTASE INHIBITORS myalgias, Unknown 2015 No Inactive Date Active Past Medical History Illness Codes Condition Status Onset Date Resolved Date Encounter for screening mammogram for malignant neoplasm of breast ICD-9: V76.10 ICD-10: Z12.31 Active 12/29/2017 Unknown Acute recurrent maxillary sinusitis ICD-9: 461.0 ICD-10: J01.01 Active 07/21/2016 Unknown Other acute sinusitis ICD-9: 461.8 ICD-10: J01.80 Active 12/17/2015 Unknown Other allergic rhinitis ICD-9: 477.8 ICD-10: J30.89 Active 12/17/2015 Unknown Chronic maxillary sinusitis ICD-9: 473.0 ICD-10: [...] Problems Condition Codes Effective Dates Condition Status Encounter for screening mammogram for malignant neoplasm of breast ICD-9: V76.10 ICD-10: Z12.31 12/29/2017 Active Acute recurrent maxillary sinusitis ICD-9: 461.0 ICD-10: J01.01 07/21/2016 Active Other acute sinusitis ICD-9: 461.8 ICD-10: J01.80 12/17/2015 Active Other allergic rhinitis ICD-9: 477.8 ICD-10: J30.89 12/17/2015 Active Chronic maxillary sinusitis ICD-9: 473.0 ICD-10: [...] Start Date Stop Date Status Fill Instructions Zyrtec 10 mg tablet RxNorm: 7914539 1 Tablet(s) PO daily 12/0801/06/2018 Active Zithromax Z-Dylan 250 mg tablet RxNorm: 139917 1 Tablet(s) PO UD 12/08/2017 No Stop Date Active Lipitor 10 mg tablet RxNorm: 602239 1 Tablet(s) PO QHS 201706/21/2018 Active Lipitor 10 mg tablet RxNorm: 877034 TAKE 1 TABLET BY MOUTH EVERY DAY AT BEDTIME 11/24/2017 No Stop Date Active lisinopril 10 mg tablet RxNorm: 411231 1 Tablet(s) PO daily 08/17/2018 Active prednisone 20 mg tablet RxNorm: 997200 2 Tablet(s) PO daily 11/17/2017 Inactive Keflex 500 mg capsule RxNorm: 937650 1 Capsule(s) PO TID and take a probiotic BID x7days 11/07/2017 11/13/2017 Inactive take with probiotic BID amlodipine 5 mg tablet RxNorm: 852933 1 Tablet(s) PO daily 10/06/2018 Active cefdinir 300 mg capsule RxNorm: 875366 1 Capsule(s) PO BID 09/23/2017 Inactive cefdinir 300 mg capsule RxNorm: 210296 1 Capsule(s) PO BID started by Dr. Davila 09/14/2017 09/13/2017 Inactive betamethasone dipropionate 0.05 % topical cream RxNorm: 184768 1 Application TOP BID 08/29/2017 10/09/2017 Inactive mix with clotrimazole and apply to affected area clotrimazole 1 % topical cream RxNorm: 355447 1 Application TOP BID 08/29/2017 10/09/2017 Inactive mix with betamethasone and apply to affected area nystatin 100,000 unit/mL oral suspension RxNorm: 442275 5 Milliliter(s) PO QID 08/29/2017 09/17/2017 Inactive lisinopril 10 mg tablet RxNorm: 352266 1 Tablet(s) PO daily 11/14/2017 Inactive Kenalog 40 mg/mL suspension for injection RxNorm: 6079836 1 Milliliter(s) Inj 07/28/2017 07/28/2017 Inactive nystatin 100,000 unit/mL oral suspension RxNorm: 868358 5 Milliliter(s) PO QID 07/28/2017 08/06/2017 Inactive Keflex 500 mg capsule RxNorm: 411037 1 Capsule(s) PO TID 201708/03/2017 Inactive Flonase Allergy Relief 50 mcg/actuation nasal spray, suspension RxNorm: 2239335 USE ONE SPRAY(S) IN EACH NOSTRIL TWICE DAILY 07/25/2017 No Stop Date Active meclizine 25 mg tablet RxNorm: 529296 TAKE ONE TABLET BY MOUTH THREE TIMES DAILY NEEDED 07/25/2017 No Stop Date Active Voltaren 1 % topical gel RxNorm: 905802 1 Application TOP QID as needed 06/20/2017 No Stop Date Active Zithromax Z-Dylan 250 mg tablet RxNorm: 755474 1 Tablet(s) PO UD 06/20/2017 07/27/2017 Inactive z pack as directed Keflex 500 mg capsule RxNorm: 318545 1 Capsule(s) PO TID 201706/01/2017 Inactive Zithromax Z-Dylan 250 mg tablet RxNorm: 678984 1 Tablet(s) PO UD 04/27/2017 06/19/2017 Inactive z pack as directed lisinopril 10 mg tablet RxNorm: 188708 1 Tablet(s) PO daily 07/22/2017 Inactive Lipitor 10 mg tablet RxNorm: 232512 1 Tablet(s) PO QHS 201711/06/2017 Inactive Zithromax Z-Dylan 250 mg tablet RxNorm: 535747 1 Tablet(s) PO UD 02/15/2017 04/26/2017 Inactive z pack as directed meclizine 25 mg tablet RxNorm: 961218 TAKE ONE TABLET BY MOUTH THREE TIMES DAILY NEEDED 01/23/2017 07/24/2017 Inactive Zithromax Z-Dylan 250 mg tablet RxNorm: 264332 1 Tablet(s) PO UD 01/05/2017 02/14/2017 Inactive z pack as directed losartan 50 mg tablet RxNorm: 869061 1 Tablet(s) PO daily 201604/10/2017 Inactive amlodipine 5 mg tablet RxNorm: 578512 1 Tablet(s) PO daily 10/11/2017 Inactive Zithromax Z-Dylan 250 mg tablet RxNorm: 840739 1 Tablet(s) PO UD 12/16/2016 01/04/2017 Inactive z pack as directed Zyrtec 10 mg tablet RxNorm: 1185864 1 Tablet(s) PO daily 12/1601/14/2017 Inactive Lipitor 10 mg tablet RxNorm: 947081 1 Tablet(s) PO QHS 201602/22/2017 Inactive Zithromax Z-Dylan 250 mg tablet RxNorm: 876692 1 Tablet(s) PO UD 09/27/2016 12/15/2016 Inactive z pack as directed Lipitor 10 mg tablet RxNorm: 267190 1 Tablet(s) PO QHS 201610/25/2016 Inactive guaifenesin 400 mg tablet RxNorm: 785509 1 Tablet(s) PO BID as needed 08/04/2016 No Stop Date Active cefdinir 300 mg capsule RxNorm: 584449 1 Capsule(s) PO BID started by Dr. Davila 08/04/2016 08/13/2016 Inactive amlodipine 10 mg tablet RxNorm: 389293 1 Tablet(s) PO daily 07/201612/21/2016 Inactive Keflex 500 mg capsule RxNorm: 432728 1 Capsule(s) PO TID 201607/27/2016 Inactive Xanax 0.25 mg tablet RxNorm: 014425 1 Tablet(s) PO TID as needed anxiety 07/01/2016 08/27/2016 Inactive Zyrtec 10 mg tablet RxNorm: 7538803 1 Tablet(s) PO daily 07/0107/30/2016 Inactive amlodipine 5 mg tablet RxNorm: 293861 1 Tablet(s) PO daily 06/201607/30/2016 Inactive Keflex 500 mg capsule RxNorm: 975219 1 Capsule(s) PO TID 201607/03/2016 Inactive Keflex 500 mg capsule RxNorm: 514800 1 Capsule(s) PO TID 201606/23/2016 Inactive Keflex 500 mg capsule RxNorm: 699326 1 Capsule(s) PO TID 201606/30/2016 Inactive Flonase Allergy Relief 50 mcg/actuation nasal spray, suspension RxNorm: 5861902 USE ONE SPRAY(S) IN EACH NOSTRIL TWICE DAILY 06/20/2016 05/15/2017 Inactive amlodipine 10 mg tablet RxNorm: 677248 1 Tablet(s) PO daily 04/201606/28/2016 Inactive Lipitor 10 mg tablet RxNorm: 528396 1 Tablet(s) PO QHS 201608/14/2016 Inactive Flonase Allergy Relief 50 mcg/actuation nasal spray, suspension RxNorm: 4759285 USE ONE SPRAY(S) IN EACH NOSTRIL TWICE DAILY 04/18/2016 05/17/2016 Inactive cephalexin 500 mg capsule RxNorm: 310912 1 Capsule(s) PO TID 04/05/2016 Inactive take with probiotics BID amlodipine 10 mg tablet RxNorm: 455706 1 Tablet(s) PO daily 02/201605/29/2016 Inactive Bactroban 2 % topical cream RxNorm: 102584 1 Application TOP BID 03/30/2016 04/08/2016 Inactive Zithromax Z-Dylan 250 mg tablet RxNorm: 985877 1 Tablet(s) PO UD 03/10/2016 05/15/2016 Inactive z pack as directed Keflex 500 mg capsule RxNorm: 510982 1 Capsule(s) PO TID 201502/25/2016 Inactive take with probiotics BID acyclovir 800 mg tablet RxNorm: 817085 1 Tablet(s) PO TID 01/2402/21/2016 Inactive Zithromax Z-Dylan 250 mg tablet RxNorm: 539052 1 Tablet(s) PO UD 01/19/2016 01/24/2016 Inactive z pack Flonase Allergy Relief 50 mcg/actuation nasal spray, suspension RxNorm: 7907482 USE ONE SPRAY(S) IN EACH NOSTRIL TWICE DAILY 12/28/2015 02/25/2016 Inactive Kenalog 40 mg/mL suspension for injection RxNorm: 2506523 Milliliter(s) Inj 12/18/2015 12/18/2015 Inactive Keflex 500 mg capsule RxNorm: 552649 1 Capsule(s) PO TID 201512/24/2015 Inactive Zithromax Z-Dylan 250 mg tablet RxNorm: 929929 1 Tablet(s) PO UD 12/09/2015 12/23/2015 Inactive z pack meclizine 25 mg tablet RxNorm: 790267 1 Tablet(s) PO TID as needed 12/09/2015 12/08/2015 Inactive meclizine 25 mg tablet RxNorm: 978605 1 Tablet(s) PO TID as needed 12/09/2015 02/26/2016 Inactive Keflex 500 mg capsule RxNorm: 695168 1 Capsule(s) PO TID 201511/22/2015 Inactive Cipro 500 mg tablet RxNorm: 733367 1 Tablet(s) PO BID 201511/13/2015 Inactive Keflex 500 mg capsule RxNorm: 012578 1 Capsule(s) PO TID 201510/30/2015 Inactive Xanax 0.25 mg tablet RxNorm: 347153 1 Tablet(s) PO TID as needed anxiety 09/18/2015 11/13/2015 Inactive Keflex 500 mg capsule RxNorm: 091100 1 Capsule(s) PO TID 201508/19/2015 Inactive losartan 50 mg tablet RxNorm: 959294 1 Tablet(s) PO daily 201507/07/2015 Inactive Pepcid 20 mg tablet RxNorm: 896004 1 Tablet(s) PO BID 201507/07/2015 Inactive Pepcid 20 mg tablet RxNorm: 187801 1 Tablet(s) PO BID 201501/31/2016 Inactive losartan 50 mg tablet RxNorm: 568675 1 Tablet(s) PO daily 201501/31/2016 Inactive prednisone 20 mg tablet RxNorm: 248498 2 Tablet(s) PO daily 06/22/2015 Inactive prednisone 20 mg tablet RxNorm: 824524 2 Tablet(s) PO daily 12/23/2015 Inactive Diflucan 100 mg tablet RxNorm: 304369 TAKE ONE TABLET BY MOUTH ONCE DAILY 06/12/2015 12/23/2015 Inactive Zithromax Z-Dylan 250 mg tablet RxNorm: 244229 1 Tablet(s) PO UD 06/05/2015 07/06/2015 Inactive z pack amlodipine 5 mg tablet RxNorm: 433043 1 Tablet(s) PO daily 03/29/2016 Inactive Zetia 10 mg tablet RxNorm: 170417 1 Tablet(s) PO daily 201506/14/2015 Inactive valsartan 160 mg tablet RxNorm: 894798 1 Tablet(s) PO daily 07/07/2015 Inactive Lipitor 10 mg tablet RxNorm: 093108 1 Tablet(s) PO QHS 201505/18/2015 Inactive Lipitor 10 mg tablet RxNorm: 760442 1 Tablet(s) PO QHS 201504/27/2015 Inactive Zithromax 250 mg tablet RxNorm: 808285 Tablet(s) PO UD 201504/28/2015 Inactive Keflex 500 mg capsule RxNorm: 852578 1 Capsule(s) PO TID 201503/22/2015 Inactive Keflex 500 mg capsule RxNorm: 538798 1 Capsule(s) PO TID 201504/01/2015 Inactive Xanax 0.25 mg tablet RxNorm: 552539 1 Tablet(s) PO TID as needed anxiety 03/12/2015 07/04/2016 Inactive carvedilol 25 mg tablet RxNorm: 645272 1 Tablet(s) PO BID 03/1201/31/2016 Inactive amlodipine 5 mg tablet RxNorm: 381485 1 Tablet(s) PO BID 201505/18/2015 Inactive Diflucan 100 mg tablet RxNorm: 761423 1 Tablet(s) PO daily 03/21/2015 Inactive Diflucan 100 mg tablet RxNorm: 312207 1 Tablet(s) PO daily 02/14/2015 Inactive Diflucan 100 mg tablet RxNorm: 325972 1 Tablet(s) PO daily 06/201401/05/2015 Inactive Diflucan 100 mg tablet RxNorm: 646893 1 Tablet(s) PO daily 06/201412/31/2014 Inactive nystatin 100,000 unit/mL oral suspension RxNorm: 452633 5 Milliliter(s) PO QID 12/24/2014 06/14/2015 Inactive nystatin 100,000 unit/mL oral suspension RxNorm: 880624 5 Milliliter(s) PO QID 12/24/2014 12/23/2014 Inactive Zithromax 250 mg tablet RxNorm: 894407 1 Tablet(s) PO daily 12/19/2014 Inactive Zithromax 250 mg tablet RxNorm: 394039 1 Tablet(s) PO daily 12/14/2014 Inactive Flonase Allergy Relief 50 mcg/actuation nasal spray, suspension RxNorm: 1 [place] NASAL BID 12/11/2014 12/10/2014 Inactive Flonase Allergy Relief 50 mcg/actuation nasal spray, suspension RxNorm: 5683586 1 [place] NASAL BID 12/11/20142015 Inactive amlodipine 5 mg tablet RxNorm: 379789 2 Tablet(s) PO daily 11/13/2014 Inactive amlodipine 5 mg tablet RxNorm: 921018 2 Tablet(s) PO daily 03/11/2015 Inactive Lotrisone 1 %-0.05 % topical cream RxNorm: 704166 1 TOP BID until healed 10/17/2014 10/30/2014 Inactive Lotrisone 1 %-0.05 % topical cream RxNorm: 711378 1 TOP BID until healed 10/16/2014 10/16/2014 Inactive Lotrisone 1 %-0.05 % topical cream RxNorm: 747910 1 TOP BID until healed 10/06/2014 10/15/2014 Inactive Keflex 500 mg capsule RxNorm: 698540 1 Capsule(s) PO TID 201408/11/2014 Inactive Keflex 500 mg capsule RxNorm: 862080 1 Capsule(s) PO TID 201408/18/2014 Inactive clotrimazole 1 % topical solution RxNorm: 232533 1 Drop(s) TOP BID No Start Date Active Vitamin D3 5,000 unit tablet RxNorm: 442474 1 Tablet(s) PO daily No Start Date Active guaifenesin 400 mg tablet RxNorm: 482863 1 Tablet(s) PO BID as needed No Start Date 08/03/2016 Inactive Lotrisone 1 %-0.05 % topical cream RxNorm: 504173 1 TOP BID until healed No Start Date 10/05/2014 Inactive lisinopril 40 mg tablet RxNorm: 313280 1 Tablet(s) PO daily No Start Date 05/18/2015 Inactive amlodipine 5 mg tablet RxNorm: 703040 1 Tablet(s) PO daily No Start Date 11/13/2014 Inactive indapamide 1.25 mg tablet RxNorm: 764167 1 Tablet(s) PO daily No Start Date 01/31/2016 Inactive aspirin 81 mg tablet RxNorm: 256250 1 Tablet(s) PO daily No Start Date 02/07/2017 Inactive Medication Administered Medication Codes Instructions Start Date Status Kenalog 40 mg/mL suspension for injection RxNorm: 7594660 1Milliliter 07/28/2017 No longer Active Kenalog 40 mg/mL suspension for injection RxNorm: 8351934 Milliliter 12/18/2015 No longer Active Immunizations Vaccine Codes Date Status Influenza CVX: 141 11/13/2017 completed Influenza CVX: 141 12/05/2016 completed Influenza CVX: 141 11/26/2015 completed PPD Unknown 06/05/2015 completed Influenza CVX: 141 12/01/2014 completed Influenza CVX: 141 11/27/2012 completed Pneumococcal CVX: 33 11/28/2011 completed Assessments Condition Codes Effective Dates Encounter for screening mammogram for malignant neoplasm of breast ICD-10: Z12.31 ICD-9: V76.10 12/29/2017 Other allergic rhinitis ICD-10: J30.89 ICD-9: 477.8 12/08/2017 Other acute sinusitis ICD-10: J01.80 ICD-9: 461.8 12/08/2017 VACCIN FOR INFLUENZA ICD-10: Z23 ICD-9: V04.81 [...] For Visit Effective Dates Notes sinus congestion 12/08/2017 hypertension 11/13/2017 rash 08/29/2017 [...] Observation Code Item Item Code Result Date Lipid Ord30 CHOL 166 mg/dL 12/01/2016 Lipid Ord30 HDL 39.0 mg/dl 12/01/2016 Lipid Ord30 TRIG 169 mg/dL 12/01/2016 Lipid Ord30 LDL 93 mg/dL 12/01/2016 Lipid Ord30 C/HDL 4.3 Ratio 12/01/2016 %Hba1C Wpv538 % HbA1c 90150-4 6.5 % 12/01/2016 %Hba1C Zap713 Gluc Ave 140 mg/dL 12/01/2016 Urine Culture Ucult Complete >100,000 col/ml [...] U-VOL VOLUME SUFFICIENT (10mL) 06/24/2016 Urinalysis Ord28 U-Yeast NEGATIVE 06/24/2016 Urinalysis Ord28 U-Com Culture to follow 06/24/2016 Tsh Ord6 hTSH II 2.49 uIU/mL 04/12/2016 Comp Metabolic Dhc410 NA 129 mEq/L 04/12/2016 Comp Metabolic Rbo003 K 4.0 mEq/L 04/12/2016 Comp Metabolic Xlh552 CL 93 mEq/L 04/12/2016 Comp Metabolic Eru414 CO2 29.0 mEq/L 04/12/2016 Comp Metabolic Bbn764 ANION GAP 11 04/12/2016 Comp Metabolic Zkj199 GLUCOSE 100 mg/dL 04/12/2016 Comp Metabolic Vjs922 Creat 1.0 mg/dL 04/12/2016 Comp Metabolic Mvm624 eGFR 55 ml/min/1.73m2 04/12/2016 Comp Metabolic Skz645 BUN 19 mg/dL 04/12/2016 Comp Metabolic Jeo574 B/C Ratio 18.8 Ratio 04/12/2016 Comp Metabolic Gqu985 CALCIUM 9.3 mg/dL 04/12/2016 Comp Metabolic Tgm992 ALK PHOS 38 U/L 04/12/2016 Comp Metabolic Cvo865 AST(SGOT) 17 U/L 04/12/2016 Comp Metabolic Zpk390 ALT(SGPT) 11 U/L 04/12/2016 Comp Metabolic Aqa083 BILI T 1.0 mg/dL 04/12/2016 Comp Metabolic Apo533 ALBUMIN 4.2 g/dL 04/12/2016 Comp Metabolic Ksq652 TPRO 6.6 g/dL 04/12/2016 Comp Metabolic Oew845 GLOB 2.4 g/dL 04/12/2016 Comp Metabolic Zas271 A/G Ratio 1.8 Ratio 04/12/2016 Comp Metabolic Tcf618 Osmo 261 mOsmo 04/12/2016 Lipid Ord30 CHOL [...] 93.3 fl 04/12/2016 Cbc With Differential Ord2 MCH 31.3 pg 04/12/2016 Cbc With Differential Ord2 [place]% 13.3 % 04/12/2016 Cbc With Differential Ord2 Eos% 1.6 % 04/12/2016 Cbc With Differential Ord2 MCHC 33.5 pg 04/12/2016 Cbc With Differential Ord2 PLT 209 K/ul 04/12/2016 Cbc With Differential Ord2 Baso% 0.5 % 04/12/2016 Cbc With Differential Ord2 RDW 13.7 % 04/12/2016 Cbc With Differential Ord2 Neut ABS# 3.95 K/ul 04/12/2016 Cbc With Differential Ord2 Lymph ABS# 2.85 K/ul 04/12/2016 Cbc With Differential Ord2 [place] ABS# 1.1 K/ul 04/12/2016 Cbc With Differential Ord2 Eos ABS# 0.1 K/ul 04/12/2016 Cbc With Differential Ord2 Baso ABS# 0.0 K/ul 04/12/2016 Lipid Ord30 CHOL 250 mg/dL 06/12/2015 Lipid Ord30 HDL 56.0 mg/dl 06/12/2015 Lipid Ord30 TRIG 144 mg/dL 06/12/2015 Lipid Ord30 LDL 165 mg/dL 06/12/2015 Lipid Ord30 C/HDL 4.5 Ratio 06/12/2015 Comp Metabolic Scx373 NA 137 mEq/L 06/12/2015 Comp Metabolic Uhb233 K 4.4 mEq/L 06/12/2015 Comp Metabolic Swr549 CL 103 mEq/L 06/12/2015 Comp Metabolic Xfg468 CO2 27.0 mEq/L 06/12/2015 Comp Metabolic Dyz149 ANION GAP 11 06/12/2015 Comp Metabolic Xit774 GLUCOSE 87 mg/dL 06/12/2015 Comp Metabolic Alb812 Creat 1.3 mg/dL 06/12/2015 Comp Metabolic Abl501 eGFR 43 ml/min/1.73m2 06/12/2015 Comp Metabolic Tdo720 BUN 32 mg/dL 06/12/2015 Comp Metabolic Qjs329 B/C Ratio 25.4 Ratio 06/12/2015 Comp Metabolic Ptf708 CALCIUM 9.5 mg/dL 06/12/2015 Comp Metabolic Ylq513 ALK PHOS 36 U/L 06/12/2015 Comp Metabolic Mzv544 AST(SGOT) 16 U/L 06/12/2015 Comp Metabolic Yet311 ALT(SGPT) 17 U/L 06/12/2015 Comp Metabolic Tsu822 BILI T 1.0 mg/dL 06/12/2015 Comp Metabolic Que729 ALBUMIN 4.1 g/dL 06/12/2015 Comp Metabolic Qzk496 TPRO 6.5 g/dL 06/12/2015 Comp Metabolic Xvu637 GLOB 2.5 g/dL 06/12/2015 Comp Metabolic Amc538 A/G Ratio 1.7 Ratio 06/12/2015 Comp Metabolic Vou492 Osmo 280 mOsmo 06/12/2015 Tsh Ord6 hTSH II 1.83 uIU/mL 06/12/2015 Cbc With Differential Ord2 WBC 8.01 [...] 30.6 pg 06/12/2015 Cbc With Differential Ord2 [place]% 11.0 % 06/12/2015 Cbc With Differential Ord2 [...] 1.96 K/ul 06/12/2015 Cbc With Differential Ord2 [place] ABS# 0.9 K/ul 06/12/2015 Cbc With Differential Ord2 Eos ABS# 0.2 K/ul 06/12/2015 Cbc With Differential Ord2 Baso ABS# 0.0 K/ul 06/12/2015 Cbc With Differential Ord2 New Analyzer Notice Please note new ref ranges starting 03-11-2015 due to implemntation of new five part differential hematolgy analyzer. 06/12/2015 Comp Metabolic Rkn468 NA 139 mEq/L 03/12/2015 Comp Metabolic Txr739 K 4.2 mEq/L 03/12/2015 Comp Metabolic Lwh365 CL 101 mEq/L 03/12/2015 Comp Metabolic Rjs155 CO2 28.0 mEq/L 03/12/2015 Comp Metabolic Mrk786 ANION GAP 14 03/12/2015 Comp Metabolic Xio756 GLUCOSE 78 mg/dL 03/12/2015 Comp Metabolic Ien464 Creat 1.1 mg/dL 03/12/2015 Comp Metabolic Xnn460 eGFR 51 ml/min/1.73m2 03/12/2015 Comp Metabolic Cyi580 BUN 17 mg/dL 03/12/2015 Comp Metabolic Oza863 B/C Ratio 15.6 Ratio 03/12/2015 Comp Metabolic Eye471 CALCIUM 9.4 mg/dL 03/12/2015 Comp Metabolic Gfc033 ALK PHOS 46 U/L 03/12/2015 Comp Metabolic Jvt013 AST(SGOT) 16 U/L 03/12/2015 Comp Metabolic Qnj653 ALT(SGPT) 12 U/L 03/12/2015 Comp Metabolic Ubi163 BILI T 0.8 mg/dL 03/12/2015 Comp Metabolic Elq194 ALBUMIN 4.1 g/dL 03/12/2015 Comp Metabolic Kzg611 TPRO 6.6 g/dL 03/12/2015 Comp Metabolic Lyp862 GLOB 2.6 g/dL 03/12/2015 Comp Metabolic Qgf874 A/G Ratio 1.6 Ratio 03/12/2015 Comp Metabolic Tjs440 Osmo 278 mOsmo 03/12/2015 Cbc With Differential [...] 21.9 % 03/12/2015 Cbc With Differential Ord2 [place]% 10.7 % 03/12/2015 Cbc With Differential Ord2 MCH 30.3 pg 03/12/2015 Cbc With Differential Ord2 Eos% 1.0 % 03/12/2015 Cbc With Differential Ord2 MCHC 32.1 pg 03/12/2015 Cbc With Differential Ord2 Baso% 0.2 % 03/12/2015 Cbc With Differential Ord2 PLT 244 K/ul 03/12/2015 Cbc With Differential Ord2 Neut ABS# 6.04 K/ul 03/12/2015 Cbc With Differential Ord2 RDW 14.2 % 03/12/2015 Cbc With Differential Ord2 Lymph ABS# 2.00 K/ul 03/12/2015 Cbc With Differential Ord2 [place] ABS# 1.0 K/ul 03/12/2015 Cbc With Differential [...] hTSH II 3.15 uIU/mL 12/01/2014 Comp Metabolic Fgn425 NA 132 mEq/L 12/01/2014 Comp Metabolic Yaq402 K 4.4 mEq/L 12/01/2014 Comp Metabolic Muu304 CL 99 mEq/L 12/01/2014 Comp Metabolic Vhl540 CO2 27.0 mEq/L 12/01/2014 Comp Metabolic Azr015 ANION GAP 10 12/01/2014 Comp Metabolic Vtu619 GLUCOSE 86 mg/dL 12/01/2014 Comp Metabolic Sue553 Creat 1.2 mg/dL 12/01/2014 Comp Metabolic Yss222 eGFR 46 ml/min/1.73m2 12/01/2014 Comp Metabolic Ved307 BUN 32 mg/dL 12/01/2014 Comp Metabolic Bub825 B/C Ratio 27.1 Ratio 12/01/2014 Comp Metabolic Rob637 CALCIUM 9.4 mg/dL 12/01/2014 Comp Metabolic Uzv459 ALK PHOS 35 U/L 12/01/2014 Comp Metabolic Ktf421 AST(SGOT) 14 U/L 12/01/2014 Comp Metabolic Ema065 ALT(SGPT) 13 U/L 12/01/2014 Comp Metabolic Mcq572 BILI T 0.8 mg/dL 12/01/2014 Comp Metabolic Hnu197 ALBUMIN 4.0 g/dL 12/01/2014 Comp Metabolic Ptz773 TPRO 6.8 g/dL 12/01/2014 Comp Metabolic Zun651 GLOB 2.8 g/dL 12/01/2014 Comp Metabolic Pme633 A/G Ratio 1.4 Ratio 12/01/2014 Comp Metabolic Jhl233 Osmo 271 mOsmo 12/01/2014 Review of Systems System Result Effective Dates Eyes No eye erythema 12/08/2017 Ears/Nose/Throat/Neck nasal [...] FLU VACC PRSV FREE INC ANTIG CPT-4: 65508 11/13/2017 ADMIN INFLUENZA VIRUS VAC CPT-4: G0008 11/13/2017 TRIAMCINOLONE ACET INJ NOS CPT-4: J3301 07/28/2017 PPPS, SUBSEQ VISIT CPT -4: G0439 02/08/2017 URINALYSIS NONAUTO W/O SCOPE CPT-4: 21275 08/15/2016 PPPS, SUBSEQ VISIT CPT -4: G0439 02/01/2016 TRIAMCINOLONE ACET INJ NOS CPT-4: J3301 12/18/2015 ADMIN INFLUENZA VIRUS VAC CPT-4: G0008 11/26/2015 FLU VACC 4 GISELA 3 YRS PLUS IM Formatting Model/CDA Sections, Assigned to/Malina Mazariegos SNOMED CT: 87952621 CPT-4: 55203Wurbmao 11/26/2015 URINALYSIS NONAUTO W/O SCOPE CPT-4: 31929 11/20/2015 URINALYSIS NONAUTO W/O SCOPE CPT-4: 78214 11/13/2015 IMMUNIZATION ADMIN CPT -4: 67594 12/01/2014 FLU VACC 4 GISELA 3 YRS PLUS IM Formatting Model/CDA Sections, Assigned to/Malina Mazariegos SNOMED CT: 28793217 CPT-4: 57575Hjmddgv 12/01/2014 Vital Signs Date Vital 12/08/2017 Blood Pressure 1: 140/52 Code : 8480-6 BMI: 25.5 Code : 58797-6 Heart Rate 1 : 77 bpm Height: 5'1" SpO2: 96% Temperature: 36.6 (C) / 97.9 (F) Weight: 135 lbs 11/13/2017 Blood Pressure 1: 134/54 Code : 8480-6 BMI: 24.8 Code : 86930-8 Heart Rate 1 : 73 bpm Height: 5'1" SpO2: 98% Weight: 131 lbs 08/29/2017 Blood Pressure 1: 162/64 Code : 8480-6 BMI: 24.9 Code : 59102-7 Heart Rate 1 : 61 bpm Height: 5'1" SpO2: 96% Weight: 132 lbs 07/28/2017 Blood Pressure 1: 148/62 Code : 8480-6 BMI: 25.1 Code : 03291-9 Heart Rate 1 : 67 bpm Height: 5'1" SpO2: 99% Temperature: 36.4 (C) / 97.5 (F) Weight: 133 lbs 06/20/2017 Blood Pressure 1: 140/52 Code : 8480-6 BMI: 25.3 Code : 87815-8 Heart Rate 1 : 64 bpm Height: 5'1" SpO2: 98% Weight: 134 lbs 05/26/2017 Blood Pressure 1: 140/56 Code : 8480-6 BMI: 25.7 Code : 51598-2 Heart Rate 1 : 74 bpm Height: 5'1" SpO2: 95% Weight: 136 lbs 04/24/2017 Blood Pressure 1: 140/68 Code : 8480-6 BMI: 24.6 Code : 70658-3 Heart Rate 1 : 67 bpm Height: 5'1" SpO2: 97% Weight: 130 lbs 02/08/2017 Blood Pressure 1: 134/76 Code : 8480-6 BMI: 24.9 Code : 90348-8 Heart Rate 1 : 67 bpm Height: 5'1" SpO2: 98% Waist Measure (cm): 29135 cm Weight: 132 lbs 12/22/2016 Blood Pressure 1: 156/80 Code : 8480-6 BMI: 24.2 Code : 45871-9 Heart Rate 1 : 65 bpm Height: 5'1" SpO2: 98% Weight: 128 lbs 12/16/2016 Blood Pressure 1: 138/62 Code : 8480-6 BMI: 23.8 Code : 15426-1 Heart Rate 1 : 63 bpm Height: 5'1" SpO2: 98% Weight: 126 lbs 08/15/2016 Blood Pressure 1: 130/60 Code : 8480-6 BMI: 25.3 Code : 20549-5 Heart Rate 1 : 72 bpm Height: 5'1" SpO2: 95% Weight: 134 lbs 08/02/2016 Blood Pressure 1: 160/62 Code : 8480-6 BMI: 25.3 Code : 67967-5 Heart Rate 1 : 67 bpm Height: 5'1" SpO2: 97% Weight: 134 lbs 07/21/2016 Blood Pressure 1: 148/66 Code : 8480-6 BMI: 25.9 Code : 58195-4 Heart Rate 1 : 71 bpm Height: 5'1" SpO2: 97% Temperature: 36.8 (C) / 98.2 (F) Weight: 137 lbs 07/01/2016 Blood Pressure 1: 142/72 Code : 8480-6 BMI: 26.5 Code : 72000-3 Heart Rate 1 : 68 bpm Height: 5'1" SpO2: 94% Weight: 140 lbs 05/16/2016 Blood Pressure 1: 162/76 Code : 8480-6 Blood Pressure 1: 138/68 Code: 8480-6 BMI: 25.7 Code: 31595-8 Heart Rate 1: 58 bpm Height: 5'1" SpO2: 98% Weight: 136 lbs 04/06/2016 Blood Pressure 1: 162/72 Code : 8480-6 Blood Pressure 1: 138/74 Code: 8480-6 BMI: 25.7 Code: 96548-6 Heart Rate 1: 75 bpm Height: 5'1" SpO2: 97% Weight: 136 lbs 03/30/2016 Blood Pressure 1: 188/80 Code : 8480-6 BMI: 26.3 Code : 81986-8 Heart Rate 1 : 75 bpm Height: 5'1" SpO2: 98% Weight: 139 lbs 02/01/2016 Blood Pressure 1: 140/72 Code : 8480-6 BMI: 25.3 Code : 01147-5 Heart Rate 1 : 65 bpm Height: 5'1" SpO2: 97% Waist Measure (cm): 84 cm Weight: 134 lbs 01/25/2016 Blood Pressure 1: 140/74 Code : 8480-6 BMI: 25.1 Code : 51257-8 Heart Rate 1 : 66 bpm Height: 5'1" SpO2: 98% Weight: 133 lbs 12/24/2015 Blood Pressure 1: 142/66 Code : 8480-6 BMI: 24.9 Code : 98977-2 Heart Rate 1 : 54 bpm Height: 5'1" SpO2: 97% Weight: 132 lbs 12/18/2015 Blood Pressure 1: 152/62 Code : 8480-6 BMI: 25.5 Code : 63171-3 Heart Rate 1 : 66 bpm Height: 5'1" SpO2: 96% Weight: 135 lbs 12/11/2015 Blood Pressure 1: 136/54 Code : 8480-6 Heart Rate 1: 72 bpm SpO2: 98% Weight: 137 lbs 11/26/2015 Blood Pressure 1: 142/70 Code : 8480-6 BMI: 25.3 Code : 78887-9 Heart Rate 1 : 64 bpm Height: 5'1" SpO2: 97% Weight: 134 lbs 11/20/2015 Blood Pressure 1: 154/70 Code : 8480-6 Heart Rate 1: 65 bpm SpO2: 98% 10/23/2015 Blood Pressure 1: 138/62 Code : 8480-6 Heart Rate 1: 55 bpm SpO2: 98% 10/21/2015 Blood Pressure 1: 142/68 Code : 8480-6 BMI: 25.7 Code : 66178-6 Heart Rate 1 : 73 bpm Height: 5'1" SpO2: 98% Weight: 136 lbs 07/15/2015 Blood Pressure 1: 130/60 Code : 8480-6 BMI: 26.6 Code : 02546-8 Heart Rate 1 : 70 bpm Height: 5'1" SpO2: 97% Weight: 141 lbs 06/15/2015 Blood Pressure 1: 118/64 Code : 8480-6 BMI: 24.9 Code : 78990-4 Heart Rate 1 : 66 bpm Height: 5'1" SpO2: 99% Weight: 132 lbs 06/05/2015 Blood Pressure 1: 135/58 Code : 8480-6 Blood Pressure 1: 142/60 Code: 8480-6 Heart Rate 1: 64 bpm SpO2: 99% 05/19/2015 Blood Pressure 1: 146/60 Code : 8480-6 BMI: 27.1 Code : 38412-0 Heart Rate 1 : 66 bpm Height: 5'1" SpO2: 97% Weight: 143 lbs 8 oz 04/24/2015 Blood Pressure 1: 148/58 Code : 8480-6 BMI: 25.9 Code : 22034-6 Heart Rate 1 : 61 bpm Height: 5'1" SpO2: 98% Weight: 137 lbs 03/12/2015 Blood Pressure 1: 140/72 Code : 8480-6 BMI: 25.1 Code : 51524-9 Heart Rate 1 : 68 bpm Height: 5'1" SpO2: 98% Weight: 133 lbs 01/12/2015 Blood Pressure 1: 146/60 Code : 8480-6 BMI: 25.7 Code : 19018-5 Heart Rate 1 : 48 bpm Height: 5'1" SpO2: 97% Weight: 136 lbs 12/11/2014 Blood Pressure 1: 144/56 Code : 8480-6 Blood Pressure 1: 125/65 Code: 8480-6 BMI: 25.1 Code: 78296-8 Heart Rate 1: 56 bpm Height: 5'1" SpO2: 96% Weight: 133 lbs 12/01/2014 Blood Pressure 1: 136/60 Code : 8480-6 Heart Rate 1: 56 bpm SpO2: 96% Weight: 131 lbs 5 oz 08/14/2014 Blood Pressure 1: 132/72 Code : 8480-6 BMI: 25.5 Code : 08599-0 Heart Rate 1 : 73 bpm Height: 5'1" SpO2: 94% Weight: 135 lbs Functional Status No Functional Status data History of Present Illness Symptom Name Status Result Effective Date Notes sinus congestion Location frontal sinuses 12/08/2017 None [...] Codes Date EST. PATIENT, LEVEL III Diagnosis: Other allergic rhinitis[ICD10: J30.89] Diagnosis: Other acute sinusitis[ICD10: J01.80] Evelyn Cohen MD, [facility] CPT-4: 77596 12/08/2017 ([id number]) 78282 EST. PATIENT, LEVEL IV Diagnosis: Essential (primary) hypertension[ICD10: I10] Diagnosis: Chronic maxillary sinusitis[ICD10: J32.0] Diagnosis: Mixed hyperlipidemia[ICD10: E78.2] Diagnosis: Other abnormal glucose[ICD10: R73.09] Berenice Cohen MD, [facility] CPT-4: 17295 11/13/2017 ([id number]) 40888 EST. PATIENT, LEVEL III Diagnosis: Tinea corporis[ICD10: B35.4] Diagnosis: Essential (primary) hypertension[ICD10: I10] Doris Cohen MD, [facility] CPT-4: 11605 08/29/2017 ([id number]) 38582 EST. PATIENT, LEVEL III Diagnosis: Acute recurrent maxillary sinusitis[ICD10: J01.01] Diagnosis: Other allergic rhinitis[ICD10: J30.89] Doris Cohen MD, [facility] CPT-4: 47548 07/28/2017 [id number] EST. PATIENT, LEVEL IV Diagnosis: Other acute sinusitis[ICD10: J01.80] Diagnosis: Other allergic rhinitis[ICD10: J30.89] Diagnosis: Otalgia, bilateral[ICD10: H92.03] Diagnosis: Pain in right knee[ICD10: M25.561] Diagnosis: Pain in left knee[ICD10: M25.562] Evelyn Cohen MD, [facility] CPT -4: 21796 06/20/2017 04506 EST. PATIENT, LEVEL IV Diagnosis: Other acute sinusitis[ICD10: J01.80] Diagnosis: Other allergic rhinitis[ICD10: J30.89] Diagnosis: Gastro-esophageal reflux disease without esophagitis[ICD10: K21.9] Evelyn Cohen MD, [facility] CPT-4: 56525 05/26/2017 [id number] EST. PATIENT, LEVEL III Diagnosis: Essential (primary) hypertension[ICD10: I10] Evelyn Cohen MD, [facility] CPT-4: 22714 04/24/2017 ([id number]) 54704 EST. PATIENT, LEVEL IV Diagnosis: Essential (primary) hypertension[ICD10: I10] Diagnosis: Other abnormal glucose[ICD10: R73.09] Diagnosis: Mixed hyperlipidemia[ICD10: E78.2] Berenice Cohen MD, [facility] CPT-4: 89032 12/22/2016 73631 EST. PATIENT, LEVEL IV Diagnosis: Other acute sinusitis[ICD10: J01.80] Diagnosis: Other allergic rhinitis[ICD10: J30.89] Evelyn Cohen MD, [facility] CPT-4: 02492 12/16/2016 ([id number]) 33580 EST. PATIENT, LEVEL IV Diagnosis: Essential (primary) hypertension[ICD10: I10] Diagnosis: Mixed hyperlipidemia[ICD10: E78.2] Diagnosis: Dysuria[ICD10: R30.0] Berenice Cohen MD, [facility] CPT-4: 45967 08/15/2016 20912 EST. PATIENT, LEVEL III Diagnosis: Other acute sinusitis[ICD10: J01.80] Diagnosis: Other allergic rhinitis[ICD10: J30.89] Diagnosis: Otalgia, bilateral[ICD10: H92.03] Evelyn Cohen MD, [facility] CPT -4: 55021 08/02/2016 ([id number]) 64368 EST. PATIENT, LEVEL III Diagnosis: Acute recurrent maxillary sinusitis[ICD10: J01.01] Diagnosis: Otalgia, right ear[ICD10: H92.01] Doris Cohen MD, [facility] CPT-4: 08846 07/21/2016 32537 EST. PATIENT, LEVEL III Diagnosis: Dysuria[ICD10: R30.0] Diagnosis: Other allergic rhinitis[ICD10: J30.89] Evelyn Cohen MD, [facility] CPT-4: 46193 07/01/2016 ([id number]) 55499 EST. PATIENT, LEVEL IV Diagnosis: Essential (primary) hypertension[ICD10: I10] Diagnosis: Mixed hyperlipidemia[ICD10: E78.2] Berenice Cohen MD, [facility] CPT-4: 88675 05/16/2016 95674 EST. PATIENT, LEVEL III Diagnosis: Mixed hyperlipidemia[ICD10: E78.2] Diagnosis: Essential (primary) hypertension[ICD10: I10] Diagnosis: Laceration without foreign body of left hand, subsequent encounter[ ICD10: S61.412D] Evelyn Cohen MD, [facility] CPT-4: 33344 04/06/2016 ([id number]) 77767 EST. PATIENT, LEVEL III Diagnosis: Essential (primary) hypertension[ICD10: I10] Berenice Cohen MD [facility] CPT-4: 59818 03/30/2016 ([id number]) 88623 EST. 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 PATIENT, LEVEL III Diagnosis: Essential (primary) hypertension[ICD10: I10] Berenice Cohen MD, [facility] CPT-4: 42266 12/24/2015 83916 EST. PATIENT, LEVEL III Diagnosis: Other acute sinusitis[ICD10: J01.80] Diagnosis: Other allergic rhinitis[ICD10: J30.89] Evelyn Cohen MD, [facility] CPT-4: 23029 12/18/2015 ([id number]) Miscellaneous no charge Diagnosis: Essential (primary) hypertension[ICD10: I10] Evelyn Cohen MD, [facility] CPT-4: 31083 12/11/2015 ([id number]) 74274 EST. PATIENT, LEVEL IV Diagnosis: Essential (primary) hypertension[ICD10: I10] Diagnosis: Other abnormal glucose[ICD10: R73.09] Diagnosis: Encounter for immunization[ICD10: Z23] Berenice Cohen MD, [facility] CPT-4: 74177 11/26/2015 ([id number]) Miscellaneous no charge Diagnosis: Bitten by dog, initial encounter[ICD10: W54.0XXA] Evelyn Cohen MD, [facility] CPT-4: 47796 10/29/2015 ([id number]) Miscellaneous no charge Diagnosis: Essential (primary) hypertension[ICD10: I10] Diagnosis: Bitten by dog, initial encounter[ICD10: W54.0XXA] Evelyn Cohen MD, [facility] CPT-4: 99162 10/23/2015 66903 EST. PATIENT, LEVEL III Diagnosis: Cellulitis of face[ICD10: L03.211] Diagnosis: Bitten by dog, initial encounter[ICD10: W54.0XXA] Evelyn Cohen MD, [facility] CPT-4: 84730 10/21/2015 ([id number]) Miscellaneous no charge Diagnosis: Essential (primary) hypertension[ICD10: I10] Evelyn Cohen MD, [facility] CPT-4: 40057 07/15/2015 ([id number]) 00831 EST. PATIENT, LEVEL IV Diagnosis: Essential (primary) hypertension[ICD10: I10] Diagnosis: Mixed hyperlipidemia[ICD10: E78.2] Diagnosis: Dry mouth, unspecified[ICD10: R68.2] Berenice Cohen MD, [facility] CPT-4: 87549 06/15/2015 ([id number]) Miscellaneous no charge Diagnosis: Essential (primary) hypertension[ICD10: I10] Doris Cohen MD, [facility] CPT-4: 00687 06/05/2015 ([id number]) 13483 EST. PATIENT, LEVEL IV Diagnosis: Mammographic microcalcification found on diagnostic imaging of breast [ICD10: R92.0] Diagnosis: Edema, unspecified[ICD10: R60.9] Diagnosis: Essential (primary) hypertension[ICD10: I10] Berenice Cohen MD, [facility] CPT-4: 97715 05/19/2015 05556 EST. PATIENT, LEVEL IV Diagnosis: Other acute sinusitis[ICD10: J01.80] Diagnosis: Acute nasopharyngitis [common cold][ICD10: J00] Diagnosis: Other allergic rhinitis[ICD10: J30.89] Diagnosis: Localized edema[ICD10: R60.0] Diagnosis: Mixed hyperlipidemia[ICD10: E78.2] Evelyn Cohen MD, [facility] CPT-4: 53902 04/24/2015 ([id number]) 65439 EST. PATIENT, LEVEL IV Diagnosis: Essential (primary) hypertension[ICD10: I10] Diagnosis: Abscess of liver[ICD10: K75.0] Diagnosis: Anemia, unspecified[ICD10: D64.9] Berenice Cohen MD, [facility] CPT-4: 14929 03/12/2015 64660 EST. PATIENT, LEVEL IV Diagnosis: Essential (primary) hypertension[ICD10: I10] Diagnosis: Candidal stomatitis[ICD10: B37.0] Diagnosis: Pain in unspecified knee[ICD10: M25.569] Diagnosis: Edema, unspecified[ICD10: R60.9] Evelyn Cohen MD, [facility] CPT- 4: 36574 01/12/2015 ([id number]) 93174 EST. PATIENT, LEVEL III Diagnosis: Pain in right foot[ICD10: M79.671] Berenice Cohen MD, [facility] CPT-4: 04815 12/11/2014 ([id number]) 99708 EST. PATIENT, LEVEL IV Diagnosis: Abscess of liver[ICD10: K75.0] Diagnosis: Hypo-osmolality and hyponatremia[ICD10: E87.1] Diagnosis: Essential (primary) hypertension[ICD10: I10] Diagnosis: VACCIN FOR INFLUENZA[ICD10: Z23] Berenice Cohen MD, [facility] CPT-4: 82024 12/01/2014 ([id number]) OFFICE VISIT, NEW - LEVEL 4 Diagnosis: ESSENTIAL HYPERTENSION[ICD9: 401.9] Diagnosis: Chronic maxillary sinusitis[ICD9: 473.0] Berenice Cohen MD, [facility] CPT-4: 72911 08/14/2014 Plan of Care Planned Activity Notes Codes Status Date Patient Education: Patient Medication Summary Completed 12/29/2017 Care Plan: SCREENINGMAMMOGRAPHYDIGITAL LOINC : 58219-1 Pending 12/29/2017 Care Plan: %Hba1C LOINC : 57351-5 Pending 12/11/2017 Visit Plan: Sinusitis - Pt [...] spray. 12/08/2017 [phone] (15 min) Moderate 12/08/2017 Patient Education: [...] shot today 11/13/2017 [facility]ment[phone] (15 min) Moderate 11/13/2017 Patient Education: Patient Medication Summary Completed 11/13/2017 Patient Education: Cholesterol Management Completed 11/13/2017 Visit Plan: Tinea-rx sent to patient's pharmacy and instructed on use-keep groin clean/dry -call if symptoms do not resolve or if any worse HTN-elevated today-monitor and home and call if continues to be elevated 08/29/2017 Appointment: Doris Sheffield WPtel: [facility] [place]4 [address] (15 min) Moderate 08/29/2017 Patient Education: [...] [facility]2 [phone] (30 min) Complex 07/28/2017 Patient Education: Patient [...] improve. 06/20/2017 Appointment: Evelyn West WPtel: [phone] [place] [phone] (15 min) Moderate 06/20/2017 Patient Education: Patient [...] improving. 05/26/2017 Appointment: Evelyn West WPtel: [phone] [facility] (15 min) Moderate 05/26/2017 Patient [...] concerns. 04/24/2017 Appointment: Evelyn West WPtel: [phone] [facility] (30 min) Complex 04/24/2017 Patient Education: Patient [...] care surrogate. 02/08/2017 Appointment: Evelyn West WPtel: [phone] [facility] [facility] - Annual Wellness Visit 02/08/2017 [...] vaccine today 12/22/2016 Appointment: Berenice Cohen WPtel: [phone] [facility] (15 min) Moderate 12/22/2016 Patient Education: Patient [...] allergy spray. 12/16/2016 Appointment: [phone] (30 min) Complex 12/16/2016 Patient Education: Patient Medication Summary Completed 12/16/2016 Appointment: Berenice Cohen WPtel: [phone] [facility] (15 min) Moderate 11/15/2016 Visit Plan: Hypertension [...] on carbohydrates. 08/15/2016 Appointment: [phone] [facility] [place] (15 min) Moderate 08/15/2016 Patient Education: Patient Medication Summary Completed 08/15/2016 Appointment: Doris Sheffield WPtel: [facility] [facility]8 [phone] (15 min) Moderate 08/05/2016 Visit Plan: Allergies [...] show improvement. 08/02/2016 Appointment: Evelyn West WPtel: [facility] [facility]0 [facility] (30 min) Complex 08/02/2016 Patient Education: Patient [...] ear flushed 07/21/2016 Appointment: Doris Sheffield WPtel: [facility]5 [phone] (15 min) Moderate 07/21/2016 Patient Education: Patient [...] nightly. 05/16/2016 Appointment: [phone] [facility] (15 min) Moderate 05/16/2016 Patient [...] concerns. 04/06/2016 Appointment: [phone] (10 min) Simple 04/06/2016 Patient Education: [...] daily. 03/30/2016 Appointment: Berenice Cohen WPtel: [phone] [facility] (15 min) Moderate 03/30/2016 Patient Education: Patient Medication Summary Completed 03/30/2016 Appointment: Berenice Cohen WPtel: [facility] [facility]4 [phone] (15 min) Moderate 03/24/2016 Visit Plan: Medicare [...] surrogate. 02/01/2016 Appointment: Evelyn West WPtel: [phone] [facility] [facility] - Annual Wellness Visit 02/01/2016 Patient Education: Patient Medication Summary Completed 02/01/2016 Visit Plan: Apthous ulcer - rx for acyclovir 800mg tid x7 days Sample of Voltaren gel to use on knees tid prn 01/25/2016 Appointment: Vicki Berenice WPtel: [facility]3 [facility] (15 min) Moderate 01/25/2016 Patient Education: Patient Medication Summary Completed 01/25/2016 Visit Plan: Hypertension - well controlled - continue with current medications, continue with no added salt diet. Pt has been encouraged to exercise daily. The pt has been advised to call the office if there are any acute concerns about change in blood pressure readings at home. 12/24/2015 Appointment: Red BudCarmeloy WPtel: [phone] [phone] (15 min) Moderate 12/24/2015 Patient Education: Patient [...] show improvement. 12/18/2015 Appointment: Doris Sheffield WPtel: [facility]6 [phone] (15 min) Moderate 12/18/2015 Patient Education: Patient [...] meal - 11/26/2015 Appointment: Berenice Cohen WPtel: [phone] [phone] (15 min) Moderate 11/26/2015 Patient Education: Patient [...] in pain. 10/21/2015 Appointment: Doris Sheffield WPtel: [phone] [phone] [place] (15 min) Moderate 10/21/2015 Patient Education: [...] spray 06/15/2015 Appointment: Berenice Cohen WPtel: [phone] [facility] [place] (15 min) Moderate 06/15/2015 Patient Education: Patient Medication Summary Completed 06/15/2015 Patient Education: Patient Medication Summary Completed 06/12/2015 Appointment: [facility]el[phone] [facility] [place] (15 min) Moderate 06/11/2015 Appointment: Nurse [...] the day 03/12/2015 Appointment: Berenice Cohen WPtel: [facility] (15 min) Moderate 03/12/2015 Patient Education: Patient [...] appointment with then soon. Pt to try [place] rub on the knees to help reduce [...] is sore 12/11/2014 Appointment: Berenice Cohen WPtel: [facility] [facility]3 [phone] (15 min) Moderate 12/11/2014 Patient Education: Patient [...] not improving. 12/01/2014 Appointment: Berenice Cohen WPtel: [facility]8 [facility] (15 min) Moderate 12/01/2014 Patient Education: Patient Medication Summary Completed 12/01/2014 Patient Education: Hypertension Completed 12/01/2014 Appointment: Berenice Cohen WPtel: [facility]7 [phone] (15 min) Moderate 09/15/2014 Visit Plan: Hypertension [...] not improve. 08/14/2014 Appointment: Berenice Cohen WPtel: [facility] [place] ([place]) New Patient 08/14/2014 Patient Education: Patient Medication Summary Completed 08/14/2014 Patient Education: Hypertension Completed 08/14/2014 Instructions Comment . Medicare Exam - today we discussed [...] foot where it is sore [employer] globe tester will contact you for a colon screen test - it is a colon cancer screening that you will do at home and send in to the globe tester. . No fracture of foot - recommended [...] Bilateral knee pain - defer to Dr. Dvaila - will send RX - the patient was instructed in appropriate posture. The pt is to use prn antiinflammatories to manage acute pain. The patient is to call the office if the pain is worsening or does not improve. . Apthous ulcer - rx for acyclovir [...] bactroban cream on the skin twice daily. change the amlodipine to 5mg at night [...] TWO hours after a meal - try [place] on your knee. Decrease Salt in diet. [...] appointment with then soon. Pt to try [place] rub on the knees to help reduce [...] Call if symptoms do not show improvement. start nexium over the counter for a [...] size of the lesion, increase in pain. Start srinivasa daily increase fluids, vitamin C [...]
--- OUTSIDE RECORDS SUMMARY | 2018-06-30 15:01 | XMS REPORT | CCD ---
Author Author Berenice Cohen Organization Berenice Cohen MD, [facility] Address [address] [place] [address] Phone Care Team Providers Care Metal Cleaner Name Role Phone PP Unavailable CCM Unavailable Summary Purpose Interface Exchange Insurance Providers Payer name Policy type / Coverage type Covered alliance party ID Effective Begin Date Effective End Date [employer] Commercial Insurance [id number] Unknown Unknown Family history Son Diagnosis Age [...] Unknown Retired 08/14/[address]: 126994542 Never smoker 08/14/[address]: 975642485 Never drinks alcohol 08/14/2014 Allergies, Adverse Reactions, Alerts Substance Reaction Codes Entered Date Inactivated Date Status AUGMENTIN hives, RxNorm: 320741 08/14/2014 No Inactive Date Active [id number] REDUCTASE INHIBITORS myalgias, Unknown 2015 No Inactive Date Active Past Medical History Illness Codes Condition Status Onset Date Resolved Date Essential (primary) hypertension ICD-9: 401.1 ICD-10: I10 Active 12/23/2015 Unknown Tinea corporis ICD-9: 110.5 ICD-10: B35.4 Active 08/29/2017 Unknown Acute recurrent maxillary sinusitis ICD-9: 461.0 ICD-10: J01.01 Active 07/21/2016 Unknown Other allergic rhinitis ICD-9: 477.8 ICD-10: J30.89 Active 12/17/2015 Unknown Otalgia, bilateral ICD -9: 388.70 ICD-10: H92.03 Active 08/02/2016 Unknown Other acute sinusitis ICD-9: 461.8 ICD-10: J01.80 Active 12/17/2015 Unknown Pain in left knee ICD- 9: 719.46 ICD-10: M25.562 Active 06/20/2017 Unknown Pain in right knee ICD -9: 719.46 ICD-10: M25.561 Active 06/20/2017 Unknown Gastro-esophageal reflux disease without esophagitis ICD-9: 530.81 ICD-10: K21.9 Active 05/26/2017 Unknown Mixed hyperlipidemia ICD-9: 272.2 ICD-10: E78.2 Active 06/14/2015 Unknown Other abnormal glucose ICD-9: 790.29 ICD-10: R73.09 Active 11/25/2015 Unknown Encounter for general adult medical examination [...] ICD-9: V04.81 ICD-10: Z23 Active 11/25/2015 Unknown Bitten by dog, initial [...] hypertension ICD-9: 401.1 ICD-10: I10 12/23/2015 Active Tinea corporis ICD-9: 110.5 ICD-10: B35.4 08/29/2017 Active Acute recurrent maxillary sinusitis ICD-9: 461.0 ICD-10: J01.01 07/21/2016 Active Other allergic rhinitis ICD-9: 477.8 ICD-10: J30.89 12/17/2015 Active Otalgia, bilateral ICD -9: 388.70 ICD-10: H92.03 08/02/2016 Active Other acute sinusitis ICD-9: 461.8 ICD-10: J01.80 12/17/2015 Active Pain in left knee ICD- 9: 719.46 ICD-10: M25.562 06/20/2017 Active Pain in right knee ICD -9: 719.46 ICD-10: M25.561 06/20/2017 Active Gastro-esophageal reflux disease without esophagitis ICD-9: 530.81 ICD-10: K21.9 05/26/2017 Active Mixed hyperlipidemia ICD-9: 272.2 ICD-10: E78.2 06/14/2015 Active Other abnormal glucose ICD-9: 790.29 ICD-10: R73.09 11/25/2015 Active Encounter for general adult medical examination [...] immunization ICD-9: V04.81 ICD-10: Z23 11/25/2015 Active Bitten by dog, initial encounter [...] Date Stop Date Status Fill Instructions amlodipine 5 mg tablet RxNorm: 443864 1 Tablet(s) PO daily 10/06/2018 Active cefdinir 300 mg capsule RxNorm: 733801 1 Capsule(s) PO BID 09/23/2017 Inactive cefdinir 300 mg capsule RxNorm: 544671 1 Capsule(s) PO BID started by Dr. Davila 09/14/2017 09/13/2017 Inactive betamethasone dipropionate 0.05 % topical cream RxNorm: 982197 1 Application TOP BID 08/29/2017 10/09/2017 Inactive mix with clotrimazole and apply to affected area clotrimazole 1 % topical cream RxNorm: 572499 1 Application TOP BID 08/29/2017 10/09/2017 Inactive mix with betamethasone and apply to affected area nystatin 100,000 unit/mL oral suspension RxNorm: 404991 5 Milliliter(s) PO QID 08/29/2017 09/17/2017 Inactive lisinopril 10 mg tablet RxNorm: 279550 1 Tablet(s) PO daily 11/14/2017 Active Kenalog 40 mg/mL suspension for injection RxNorm: 1821065 1 Milliliter(s) Inj 07/28/2017 07/28/2017 Inactive nystatin 100,000 unit/mL oral suspension RxNorm: 023026 5 Milliliter(s) PO QID 07/28/2017 08/06/2017 Inactive Keflex 500 mg capsule RxNorm: 816045 1 Capsule(s) PO TID 201708/03/2017 Inactive Flonase Allergy Relief 50 mcg/actuation nasal spray, suspension RxNorm: 3083927 USE ONE SPRAY(S) IN EACH NOSTRIL TWICE DAILY 07/25/2017 No Stop Date Active meclizine 25 mg tablet RxNorm: 103578 TAKE ONE TABLET BY MOUTH THREE TIMES DAILY NEEDED 07/25/2017 No Stop Date Active Voltaren 1 % topical gel RxNorm: 512781 1 Application TOP QID as needed 06/20/2017 No Stop Date Active Zithromax Z-Dylan 250 mg tablet RxNorm: 577347 1 Tablet(s) PO UD 06/20/2017 07/27/2017 Inactive z pack as directed Keflex 500 mg capsule RxNorm: 284075 1 Capsule(s) PO TID 201706/01/2017 Inactive Zithromax Z-Dylan 250 mg tablet RxNorm: 858394 1 Tablet(s) PO UD 04/27/2017 06/19/2017 Inactive z pack as directed lisinopril 10 mg tablet RxNorm: 498334 1 Tablet(s) PO daily 07/22/2017 Inactive Lipitor 10 mg tablet RxNorm: 369879 1 Tablet(s) PO QHS 201711/06/2017 Active Zithromax Z-Dylan 250 mg tablet RxNorm: 832650 1 Tablet(s) PO UD 02/15/2017 04/26/2017 Inactive z pack as directed meclizine 25 mg tablet RxNorm: 927709 TAKE ONE TABLET BY MOUTH THREE TIMES DAILY NEEDED 01/23/2017 07/24/2017 Inactive Zithromax Z-Dylan 250 mg tablet RxNorm: 041130 1 Tablet(s) PO UD 01/05/2017 02/14/2017 Inactive z pack as directed losartan 50 mg tablet RxNorm: 285299 1 Tablet(s) PO daily 201604/10/2017 Inactive amlodipine 5 mg tablet RxNorm: 899287 1 Tablet(s) PO daily 10/11/2017 Inactive Zithromax Z-Dylan 250 mg tablet RxNorm: 207142 1 Tablet(s) PO UD 12/16/2016 01/04/2017 Inactive z pack as directed Zyrtec 10 mg tablet RxNorm: 1244333 1 Tablet(s) PO daily 12/1601/14/2017 Inactive Lipitor 10 mg tablet RxNorm: 269126 1 Tablet(s) PO QHS 201602/22/2017 Inactive Zithromax Z-Dylan 250 mg tablet RxNorm: 648139 1 Tablet(s) PO UD 09/27/2016 12/15/2016 Inactive z pack as directed Lipitor 10 mg tablet RxNorm: 055610 1 Tablet(s) PO QHS 201610/25/2016 Inactive guaifenesin 400 mg tablet RxNorm: 982142 1 Tablet(s) PO BID as needed 08/04/2016 No Stop Date Active cefdinir 300 mg capsule RxNorm: 418158 1 Capsule(s) PO BID started by Dr. Davila 08/04/2016 08/13/2016 Inactive amlodipine 10 mg tablet RxNorm: 772323 1 Tablet(s) PO daily 07/201612/21/2016 Inactive Keflex 500 mg capsule RxNorm: 775168 1 Capsule(s) PO TID 201607/27/2016 Inactive Xanax 0.25 mg tablet RxNorm: 520122 1 Tablet(s) PO TID as needed anxiety 07/01/2016 08/27/2016 Inactive Zyrtec 10 mg tablet RxNorm: 7972312 1 Tablet(s) PO daily 07/0107/30/2016 Inactive amlodipine 5 mg tablet RxNorm: 554138 1 Tablet(s) PO daily 06/201607/30/2016 Inactive Keflex 500 mg capsule RxNorm: 297654 1 Capsule(s) PO TID 201607/03/2016 Inactive Keflex 500 mg capsule RxNorm: 079508 1 Capsule(s) PO TID 201606/23/2016 Inactive Keflex 500 mg capsule RxNorm: 087183 1 Capsule(s) PO TID 201606/30/2016 Inactive Flonase Allergy Relief 50 mcg/actuation nasal spray, suspension RxNorm: 4532192 USE ONE SPRAY(S) IN EACH NOSTRIL TWICE DAILY 06/20/2016 05/15/2017 Inactive amlodipine 10 mg tablet RxNorm: 835592 1 Tablet(s) PO daily 04/201606/28/2016 Inactive Lipitor 10 mg tablet RxNorm: 541814 1 Tablet(s) PO QHS 201608/14/2016 Inactive Flonase Allergy Relief 50 mcg/actuation nasal spray, suspension RxNorm: 9941702 USE ONE SPRAY(S) IN EACH NOSTRIL TWICE DAILY 04/18/2016 05/17/2016 Inactive cephalexin 500 mg capsule RxNorm: 681170 1 Capsule(s) PO TID 04/05/2016 Inactive take with probiotics BID amlodipine 10 mg tablet RxNorm: 858426 1 Tablet(s) PO daily 02/201605/29/2016 Inactive Bactroban 2 % topical cream RxNorm: 028944 1 Application TOP BID 03/30/2016 04/08/2016 Inactive Zithromax Z-Dylan 250 mg tablet RxNorm: 035887 1 Tablet(s) PO UD 03/10/2016 05/15/2016 Inactive z pack as directed Keflex 500 mg capsule RxNorm: 287573 1 Capsule(s) PO TID 201502/25/2016 Inactive take with probiotics BID acyclovir 800 mg tablet RxNorm: 056777 1 Tablet(s) PO TID 01/2402/21/2016 Inactive Zithromax Z-Dylan 250 mg tablet RxNorm: 843924 1 Tablet(s) PO UD 01/19/2016 01/24/2016 Inactive z pack Flonase Allergy Relief 50 mcg/actuation nasal spray, suspension RxNorm: 5192856 USE ONE SPRAY(S) IN EACH NOSTRIL TWICE DAILY 12/28/2015 02/25/2016 Inactive Kenalog 40 mg/mL suspension for injection RxNorm: 3277809 Milliliter(s) Inj 12/18/2015 12/18/2015 Inactive Keflex 500 mg capsule RxNorm: 411610 1 Capsule(s) PO TID 201512/24/2015 Inactive Zithromax Z-Dylan 250 mg tablet RxNorm: 183427 1 Tablet(s) PO UD 12/09/2015 12/23/2015 Inactive z pack meclizine 25 mg tablet RxNorm: 924427 1 Tablet(s) PO TID as needed 12/09/2015 12/08/2015 Inactive meclizine 25 mg tablet RxNorm: 219753 1 Tablet(s) PO TID as needed 12/09/2015 02/26/2016 Inactive Keflex 500 mg capsule RxNorm: 354773 1 Capsule(s) PO TID 201511/22/2015 Inactive Cipro 500 mg tablet RxNorm: 784387 1 Tablet(s) PO BID 201511/13/2015 Inactive Keflex 500 mg capsule RxNorm: 454171 1 Capsule(s) PO TID 201510/30/2015 Inactive Xanax 0.25 mg tablet RxNorm: 116940 1 Tablet(s) PO TID as needed anxiety 09/18/2015 11/13/2015 Inactive Keflex 500 mg capsule RxNorm: 124927 1 Capsule(s) PO TID 201508/19/2015 Inactive losartan 50 mg tablet RxNorm: 506557 1 Tablet(s) PO daily 201507/07/2015 Inactive Pepcid 20 mg tablet RxNorm: 965841 1 Tablet(s) PO BID 201507/07/2015 Inactive Pepcid 20 mg tablet RxNorm: 743923 1 Tablet(s) PO BID 201501/31/2016 Inactive losartan 50 mg tablet RxNorm: 967567 1 Tablet(s) PO daily 201501/31/2016 Inactive prednisone 20 mg tablet RxNorm: 117378 2 Tablet(s) PO daily 06/22/2015 Inactive prednisone 20 mg tablet RxNorm: 544466 2 Tablet(s) PO daily 12/23/2015 Inactive Diflucan 100 mg tablet RxNorm: 580047 TAKE ONE TABLET BY MOUTH ONCE DAILY 06/12/2015 12/23/2015 Inactive Zithromax Z-Dylan 250 mg tablet RxNorm: 737610 1 Tablet(s) PO UD 06/05/2015 07/06/2015 Inactive z pack amlodipine 5 mg tablet RxNorm: 202330 1 Tablet(s) PO daily 03/29/2016 Inactive Zetia 10 mg tablet RxNorm: 801061 1 Tablet(s) PO daily 201506/14/2015 Inactive valsartan 160 mg tablet RxNorm: 302801 1 Tablet(s) PO daily 07/07/2015 Inactive Lipitor 10 mg tablet RxNorm: 938673 1 Tablet(s) PO QHS 201505/18/2015 Inactive Lipitor 10 mg tablet RxNorm: 706482 1 Tablet(s) PO QHS 201504/27/2015 Inactive Zithromax 250 mg tablet RxNorm: 814870 Tablet(s) PO UD 201504/28/2015 Inactive Keflex 500 mg capsule RxNorm: 410606 1 Capsule(s) PO TID 201503/22/2015 Inactive Keflex 500 mg capsule RxNorm: 133174 1 Capsule(s) PO TID 201504/01/2015 Inactive Xanax 0.25 mg tablet RxNorm: 105174 1 Tablet(s) PO TID as needed anxiety 03/12/2015 07/04/2016 Inactive carvedilol 25 mg tablet RxNorm: 322396 1 Tablet(s) PO BID 03/1201/31/2016 Inactive amlodipine 5 mg tablet RxNorm: 194363 1 Tablet(s) PO BID 201505/18/2015 Inactive Diflucan 100 mg tablet RxNorm: 757609 1 Tablet(s) PO daily 03/21/2015 Inactive Diflucan 100 mg tablet RxNorm: 012532 1 Tablet(s) PO daily 02/14/2015 Inactive Diflucan 100 mg tablet RxNorm: 555238 1 Tablet(s) PO daily 06/201401/05/2015 Inactive Diflucan 100 mg tablet RxNorm: 367611 1 Tablet(s) PO daily 06/201412/31/2014 Inactive nystatin 100,000 unit/mL oral suspension RxNorm: 503456 5 Milliliter(s) PO QID 12/24/2014 06/14/2015 Inactive nystatin 100,000 unit/mL oral suspension RxNorm: 370318 5 Milliliter(s) PO QID 12/24/2014 12/23/2014 Inactive Zithromax 250 mg tablet RxNorm: 624123 1 Tablet(s) PO daily 12/19/2014 Inactive Zithromax 250 mg tablet RxNorm: 658432 1 Tablet(s) PO daily 12/14/2014 Inactive Flonase Allergy Relief 50 mcg/actuation nasal spray, suspension RxNorm: 1 [place] NASAL BID 12/11/2014 12/10/2014 Inactive Flonase Allergy Relief 50 mcg/actuation nasal spray, suspension RxNorm: 1324583 1 [place] NASAL BID 12/11/20142015 Inactive amlodipine 5 mg tablet RxNorm: 967508 2 Tablet(s) PO daily 11/13/2014 Inactive amlodipine 5 mg tablet RxNorm: 765779 2 Tablet(s) PO daily 03/11/2015 Inactive Lotrisone 1 %-0.05 % topical cream RxNorm: 776773 1 TOP BID until healed 10/17/2014 10/30/2014 Inactive Lotrisone 1 %-0.05 % topical cream RxNorm: 996729 1 TOP BID until healed 10/16/2014 10/16/2014 Inactive Lotrisone 1 %-0.05 % topical cream RxNorm: 863096 1 TOP BID until healed 10/06/2014 10/15/2014 Inactive Keflex 500 mg capsule RxNorm: 616872 1 Capsule(s) PO TID 201408/11/2014 Inactive Keflex 500 mg capsule RxNorm: 961753 1 Capsule(s) PO TID 201408/18/2014 Inactive clotrimazole 1 % topical solution RxNorm: 066380 1 Drop(s) TOP BID No Start Date Active Vitamin D3 5,000 unit tablet RxNorm: 596798 1 Tablet(s) PO daily No Start Date Active guaifenesin 400 mg tablet RxNorm: 819540 1 Tablet(s) PO BID as needed No Start Date 08/03/2016 Inactive Lotrisone 1 %-0.05 % topical cream RxNorm: 477810 1 TOP BID until healed No Start Date 10/05/2014 Inactive lisinopril 40 mg tablet RxNorm: 972259 1 Tablet(s) PO daily No Start Date 05/18/2015 Inactive amlodipine 5 mg tablet RxNorm: 909462 1 Tablet(s) PO daily No Start Date 11/13/2014 Inactive indapamide 1.25 mg tablet RxNorm: 559832 1 Tablet(s) PO daily No Start Date 01/31/2016 Inactive aspirin 81 mg tablet RxNorm: 800818 1 Tablet(s) PO daily No Start Date 02/07/2017 Inactive Medication Administered Medication Codes Instructions Start Date Status Kenalog 40 mg/mL suspension for injection RxNorm: 5272992 1Milliliter 07/28/2017 No longer Active Kenalog 40 mg/mL suspension for injection RxNorm: 7959765 Milliliter 12/18/2015 No longer Active Immunizations Vaccine Codes Date Status Influenza CVX: 141 12/05/2016 completed Influenza CVX: 141 11/26/2015 completed PPD Unknown 06/05/2015 completed Influenza CVX: 141 12/01/2014 completed Influenza CVX: 141 11/27/2012 completed Pneumococcal CVX: 33 11/28/2011 completed Assessments Condition Codes Effective Dates Tinea corporis ICD-10: B35.4 ICD-9: 110.5 08/29/2017 Essential (primary) hypertension ICD-10: I10 ICD-9: 401.1 08/29/2017 Acute recurrent maxillary sinusitis ICD-10: J01.01 ICD-9: 461.0 07/28/2017 Other allergic rhinitis ICD-10: J30.89 ICD-9: 477.8 07/28/2017 Other acute sinusitis ICD-10: J01.80 ICD-9: 461.8 06/20/2017 Otalgia, bilateral ICD-10: H92.03 ICD-9: 388.70 06/20/2017 Pain in left knee ICD-10: M25.562 ICD-9: 719.46 06/20/2017 Pain in right knee ICD-10: M25.561 ICD-9: 719.46 06/20/2017 Gastro-esophageal reflux disease without esophagitis ICD-10 : K21.9 ICD-9: 530.81 05/26/2017 Encounter for general adult medical examination with abnormal findings ICD-10: Z00.01 ICD-9: V70.0 02/08/2017 Other abnormal glucose ICD-10: R73.09 ICD-9: 790.29 12/22/2016 Mixed hyperlipidemia ICD-10: E78.2 ICD-9: 272.2 12/22/2016 Dysuria ICD-10: R30.0 ICD-9: 788.1 08/15/2016 Otalgia, right ear ICD-10: H92.01 ICD-9: 388.70 07/21/2016 Essential (primary) hypertension ICD-10: I10 ICD-9: 401.9 04/06/2016 Laceration without foreign body of left hand, subsequent encounter ICD-10: S61.412D ICD-9: V58.89 04/06/2016 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 01/25/2016 Encounter for immunization ICD-10: Z23 ICD-9: V04.81 11/26/2015 Bitten by dog, initial encounter ICD-10: [...] Visit Reason For Visit Effective Dates Notes rash 08/29/2017 sinus pain 07/28/2017 sinus pain [...] Code Item Item Code Result Date %Hba1C Scw742 % HbA1c 11000-6 6.5 % 12/01/2016 %Hba1C Gbj344 Gluc Ave 140 mg/dL 12/01/2016 Lipid Ord30 [...] Urinalysis Ord28 U-Com Culture to follow 06/24/2016 Cbc With Differential Ord2 WBC 8.04 [...] 31.3 pg 04/12/2016 Cbc With Differential Ord2 [place]% 13.3 % 04/12/2016 Cbc With Differential Ord2 MCHC 33.5 pg 04/12/2016 Cbc With Differential Ord2 Eos% 1.6 % 04/12/2016 Cbc With Differential Ord2 Baso% 0.5 % 04/12/2016 Cbc With Differential Ord2 PLT 209 K/ul 04/12/2016 Cbc With Differential Ord2 RDW 13.7 % 04/12/2016 Cbc With Differential Ord2 Neut ABS# 3.95 K/ul 04/12/2016 Cbc With Differential Ord2 Lymph ABS# 2.85 K/ul 04/12/2016 Cbc With Differential Ord2 [place] ABS# 1.1 K/ul 04/12/2016 Cbc With Differential Ord2 Eos ABS# 0.1 K/ul 04/12/2016 Cbc With Differential Ord2 Baso ABS# 0.0 K/ul 04/12/2016 Comp Metabolic Tzw837 NA 129 mEq/L 04/12/2016 Comp Metabolic Qgj196 K 4.0 mEq/L 04/12/2016 Comp Metabolic Llf353 CL 93 mEq/L 04/12/2016 Comp Metabolic Oln623 CO2 29.0 mEq/L 04/12/2016 Comp Metabolic Yyr565 ANION GAP 11 04/12/2016 Comp Metabolic Ici015 GLUCOSE 100 mg/dL 04/12/2016 Comp Metabolic Qam560 Creat 1.0 mg/dL 04/12/2016 Comp Metabolic Gco828 eGFR 55 ml/min/1.73m2 04/12/2016 Comp Metabolic Vyl745 BUN 19 mg/dL 04/12/2016 Comp Metabolic Dab096 B/C Ratio 18.8 Ratio 04/12/2016 Comp Metabolic Lbl113 CALCIUM 9.3 mg/dL 04/12/2016 Comp Metabolic Nme707 ALK PHOS 38 U/L 04/12/2016 Comp Metabolic Vzm863 AST(SGOT) 17 U/L 04/12/2016 Comp Metabolic Uxx167 ALT(SGPT) 11 U/L 04/12/2016 Comp Metabolic Byu203 BILI T 1.0 mg/dL 04/12/2016 Comp Metabolic Vzc756 ALBUMIN 4.2 g/dL 04/12/2016 Comp Metabolic Tsd033 TPRO 6.6 g/dL 04/12/2016 Comp Metabolic Bks180 GLOB 2.4 g/dL 04/12/2016 Comp Metabolic Ach917 A/G Ratio 1.8 Ratio 04/12/2016 Comp Metabolic Yba919 Osmo 261 mOsmo 04/12/2016 Lipid Ord30 CHOL 265 mg/dL 04/12/2016 Lipid Ord30 HDL 42.0 mg/dl 04/12/2016 Lipid Ord30 TRIG 246 mg/dL 04/12/2016 Lipid Ord30 LDL 174 mg/dL 04/12/2016 Lipid Ord30 C/HDL 6.3 Ratio 04/12/2016 Tsh Ord6 hTSH II 2.49 uIU/mL 04/12/2016 Tsh Ord6 hTSH II 1.83 uIU/mL 06/12/2015 Comp Metabolic Wow143 NA 137 mEq/L 06/12/2015 Comp Metabolic Bdr793 K 4.4 mEq/L 06/12/2015 Comp Metabolic Bsm181 CL 103 mEq/L 06/12/2015 Comp Metabolic Jiq797 CO2 27.0 mEq/L 06/12/2015 Comp Metabolic Ldz768 ANION GAP 11 06/12/2015 Comp Metabolic Ygp860 GLUCOSE 87 mg/dL 06/12/2015 Comp Metabolic Ete991 Creat 1.3 mg/dL 06/12/2015 Comp Metabolic Nlr609 eGFR 43 ml/min/1.73m2 06/12/2015 Comp Metabolic Trl313 BUN 32 mg/dL 06/12/2015 Comp Metabolic Dzo526 B/C Ratio 25.4 Ratio 06/12/2015 Comp Metabolic Mgp235 CALCIUM 9.5 mg/dL 06/12/2015 Comp Metabolic Vqp868 ALK PHOS 36 U/L 06/12/2015 Comp Metabolic Umm272 AST(SGOT) 16 U/L 06/12/2015 Comp Metabolic Vdx668 ALT(SGPT) 17 U/L 06/12/2015 Comp Metabolic Urv786 BILI T 1.0 mg/dL 06/12/2015 Comp Metabolic Ffx045 ALBUMIN 4.1 g/dL 06/12/2015 Comp Metabolic Ekh540 TPRO 6.5 g/dL 06/12/2015 Comp Metabolic Qtr576 GLOB 2.5 g/dL 06/12/2015 Comp Metabolic Wqg238 A/G Ratio 1.7 Ratio 06/12/2015 Comp Metabolic Ogx589 Osmo 280 mOsmo 06/12/2015 Lipid Ord30 CHOL [...] 36.6 % 06/12/2015 Cbc With Differential Ord2 MCV 92.4 fl 06/12/2015 Cbc With Differential Ord2 Lymph% 24.5 % 06/12/2015 Cbc With Differential Ord2 MCH 30.6 pg 06/12/2015 Cbc With Differential Ord2 [place]% 11.0 % 06/12/2015 Cbc With Differential Ord2 Eos% 2.1 % 06/12/2015 Cbc With Differential Ord2 MCHC 33.1 pg 06/12/2015 Cbc With Differential Ord2 PLT 191 K/ul 06/12/2015 Cbc With Differential Ord2 Baso% 0.5 % 06/12/2015 Cbc With Differential Ord2 RDW 13.7 % 06/12/2015 Cbc With Differential Ord2 Neut ABS# 4.96 K/ul 06/12/2015 Cbc With Differential Ord2 Lymph ABS# 1.96 K/ul 06/12/2015 Cbc With Differential Ord2 [place] ABS# 0.9 K/ul 06/12/2015 Cbc With Differential [...] 66.2 % 03/12/2015 Cbc With Differential Ord2 Lymph% 21.9 % 03/12/2015 Cbc With Differential Ord2 MCV 94.5 fl 03/12/2015 Cbc With Differential Ord2 [place]% 10.7 % 03/12/2015 Cbc With Differential Ord2 MCH 30.3 pg 03/12/2015 Cbc With Differential Ord2 MCHC 32.1 pg 03/12/2015 Cbc With Differential Ord2 Eos% 1.0 % 03/12/2015 Cbc With Differential Ord2 Baso% 0.2 % 03/12/2015 Cbc With Differential Ord2 PLT 244 K/ul 03/12/2015 Cbc With Differential Ord2 Neut ABS# 6.04 K/ul 03/12/2015 Cbc With Differential Ord2 RDW 14.2 % 03/12/2015 Cbc With Differential Ord2 Lymph ABS# 2.00 K/ul 03/12/2015 Cbc With Differential Ord2 [place] ABS# 1.0 K/ul 03/12/2015 Cbc With Differential Ord2 Eos ABS# 0.1 K/ul 03/12/2015 Cbc With Differential Ord2 Baso ABS# 0.0 K/ul 03/12/2015 Cbc With Differential Ord2 New Analyzer Notice Please note new ref ranges starting 03-11-2015 due to implemntation of new five part differential hematolgy analyzer. 03/12/2015 Comp Metabolic Wuy009 NA 139 mEq/L 03/12/2015 Comp Metabolic Ufa392 K 4.2 mEq/L 03/12/2015 Comp Metabolic Juy489 CL 101 mEq/L 03/12/2015 Comp Metabolic Vxc305 CO2 28.0 mEq/L 03/12/2015 Comp Metabolic Yxx995 ANION GAP 14 03/12/2015 Comp Metabolic Gil929 GLUCOSE 78 mg/dL 03/12/2015 Comp Metabolic Gif594 Creat 1.1 mg/dL 03/12/2015 Comp Metabolic Csa060 eGFR 51 ml/min/1.73m2 03/12/2015 Comp Metabolic Skg367 BUN 17 mg/dL 03/12/2015 Comp Metabolic Riz011 B/C Ratio 15.6 Ratio 03/12/2015 Comp Metabolic Kps171 CALCIUM 9.4 mg/dL 03/12/2015 Comp Metabolic Vhg120 ALK PHOS 46 U/L 03/12/2015 Comp Metabolic Oqq497 AST(SGOT) 16 U/L 03/12/2015 Comp Metabolic Jlp861 ALT(SGPT) 12 U/L 03/12/2015 Comp Metabolic Bse339 BILI T 0.8 mg/dL 03/12/2015 Comp Metabolic Vnm502 ALBUMIN 4.1 g/dL 03/12/2015 Comp Metabolic Qgg015 TPRO 6.6 g/dL 03/12/2015 Comp Metabolic Gql968 GLOB 2.6 g/dL 03/12/2015 Comp Metabolic Aqu280 A/G Ratio 1.6 Ratio 03/12/2015 Comp Metabolic Xjb042 Osmo 278 mOsmo 03/12/2015 Lipid Ord30 CHOL [...] hTSH II 3.15 uIU/mL 12/01/2014 Comp Metabolic Vdi577 NA 132 mEq/L 12/01/2014 Comp Metabolic Tfb109 K 4.4 mEq/L 12/01/2014 Comp Metabolic Bia459 CL 99 mEq/L 12/01/2014 Comp Metabolic Ddh930 CO2 27.0 mEq/L 12/01/2014 Comp Metabolic Tae240 ANION GAP 10 12/01/2014 Comp Metabolic Eer768 GLUCOSE 86 mg/dL 12/01/2014 Comp Metabolic Zfa162 Creat 1.2 mg/dL 12/01/2014 Comp Metabolic Cub102 eGFR 46 ml/min/1.73m2 12/01/2014 Comp Metabolic Mkr523 BUN 32 mg/dL 12/01/2014 Comp Metabolic Kkf451 B/C Ratio 27.1 Ratio 12/01/2014 Comp Metabolic Lju424 CALCIUM 9.4 mg/dL 12/01/2014 Comp Metabolic Pzf333 ALK PHOS 35 U/L 12/01/2014 Comp Metabolic Kug018 AST(SGOT) 14 U/L 12/01/2014 Comp Metabolic Buc887 ALT(SGPT) 13 U/L 12/01/2014 Comp Metabolic Sgh255 BILI T 0.8 mg/dL 12/01/2014 Comp Metabolic Ynn230 ALBUMIN 4.0 g/dL 12/01/2014 Comp Metabolic Hbr496 TPRO 6.8 g/dL 12/01/2014 Comp Metabolic Phx113 GLOB 2.8 g/dL 12/01/2014 Comp Metabolic Smw063 A/G Ratio 1.4 Ratio 12/01/2014 Comp Metabolic Zwa412 Osmo 271 mOsmo 12/01/2014 Review of Systems System Result Effective Dates Constitutional No recent illness 2017 Constitutional No [...] Effective Dates Notes Full Exam - General 1995 Constitutional general appearance Overall: well developed 08/29/2017 [...] left lower jaw Procedures Procedure Codes Date TRIAMCINOLONE ACET INJ NOS CPT-4: J3301 07/28/2017 PPPS, SUBSEQ VISIT CPT -4: G0439 02/08/2017 URINALYSIS NONAUTO W/O SCOPE CPT-4: 33760 08/15/2016 PPPS, SUBSEQ VISIT CPT -4: G0439 02/01/2016 TRIAMCINOLONE ACET INJ NOS CPT-4: J3301 12/18/2015 ADMIN INFLUENZA VIRUS VAC CPT-4: G0008 11/26/2015 FLU VACC 4 GISELA 3 YRS PLUS IM Formatting Model/CDA Sections, Assigned to/Malina Mazariegos SNOMED CT: 19568011 CPT-4: 60079Nxkvydw 11/26/2015 URINALYSIS NONAUTO W/O SCOPE CPT-4: 08146 11/20/2015 URINALYSIS NONAUTO W/O SCOPE CPT-4: 49809 11/13/2015 IMMUNIZATION ADMIN CPT -4: 01782 12/01/2014 FLU VACC 4 GISELA 3 YRS PLUS IM Formatting Model/CDA Sections, Assigned to/Malina Mazariegos SNOMED CT: 85929618 CPT-4: 41599Koctsra 12/01/2014 Vital Signs Date Vital 08/29/2017 Blood Pressure 1: 162/64 Code : 8480-6 BMI: 24.9 Code : 92130-8 Heart Rate 1 : 61 bpm Height: 5'1" SpO2: 96% Weight: 132 lbs 07/28/2017 Blood Pressure 1: 148/62 Code : 8480-6 BMI: 25.1 Code : 16687-2 Heart Rate 1 : 67 bpm Height: 5'1" SpO2: 99% Temperature: 36.4 (C) / 97.5 (F) Weight: 133 lbs 06/20/2017 Blood Pressure 1: 140/52 Code : 8480-6 BMI: 25.3 Code : 57832-6 Heart Rate 1 : 64 bpm Height: 5'1" SpO2: 98% Weight: 134 lbs 05/26/2017 Blood Pressure 1: 140/56 Code : 8480-6 BMI: 25.7 Code : 28735-2 Heart Rate 1 : 74 bpm Height: 5'1" SpO2: 95% Weight: 136 lbs 04/24/2017 Blood Pressure 1: 140/68 Code : 8480-6 BMI: 24.6 Code : 25223-6 Heart Rate 1 : 67 bpm Height: 5'1" SpO2: 97% Weight: 130 lbs 02/08/2017 Blood Pressure 1: 134/76 Code : 8480-6 BMI: 24.9 Code : 88512-6 Heart Rate 1 : 67 bpm Height: 5'1" SpO2: 98% Waist Measure (cm): 79916 cm Weight: 132 lbs 12/22/2016 Blood Pressure 1: 156/80 Code : 8480-6 BMI: 24.2 Code : 36720-3 Heart Rate 1 : 65 bpm Height: 5'1" SpO2: 98% Weight: 128 lbs 12/16/2016 Blood Pressure 1: 138/62 Code : 8480-6 BMI: 23.8 Code : 22703-9 Heart Rate 1 : 63 bpm Height: 5'1" SpO2: 98% Weight: 126 lbs 08/15/2016 Blood Pressure 1: 130/60 Code : 8480-6 BMI: 25.3 Code : 02237-9 Heart Rate 1 : 72 bpm Height: 5'1" SpO2: 95% Weight: 134 lbs 08/02/2016 Blood Pressure 1: 160/62 Code : 8480-6 BMI: 25.3 Code : 14422-6 Heart Rate 1 : 67 bpm Height: 5'1" SpO2: 97% Weight: 134 lbs 07/21/2016 Blood Pressure 1: 148/66 Code : 8480-6 BMI: 25.9 Code : 61644-7 Heart Rate 1 : 71 bpm Height: 5'1" SpO2: 97% Temperature: 36.8 (C) / 98.2 (F) Weight: 137 lbs 07/01/2016 Blood Pressure 1: 142/72 Code : 8480-6 BMI: 26.5 Code : 88874-9 Heart Rate 1 : 68 bpm Height: 5'1" SpO2: 94% Weight: 140 lbs 05/16/2016 Blood Pressure 1: 138/68 Code : 8480-6 Blood Pressure 1: 162/76 Code: 8480-6 BMI: 25.7 Code: 32778-3 Heart Rate 1: 58 bpm Height: 5'1" SpO2: 98% Weight: 136 lbs 04/06/2016 Blood Pressure 1: 138/74 Code : 8480-6 Blood Pressure 1: 162/72 Code: 8480-6 BMI: 25.7 Code: 06685-6 Heart Rate 1: 75 bpm Height: 5'1" SpO2: 97% Weight: 136 lbs 03/30/2016 Blood Pressure 1: 188/80 Code : 8480-6 BMI: 26.3 Code : 93047-8 Heart Rate 1 : 75 bpm Height: 5'1" SpO2: 98% Weight: 139 lbs 02/01/2016 Blood Pressure 1: 140/72 Code : 8480-6 BMI: 25.3 Code : 97542-3 Heart Rate 1 : 65 bpm Height: 5'1" SpO2: 97% Waist Measure (cm): 84 cm Weight: 134 lbs 01/25/2016 Blood Pressure 1: 140/74 Code : 8480-6 BMI: 25.1 Code : 93804-2 Heart Rate 1 : 66 bpm Height: 5'1" SpO2: 98% Weight: 133 lbs 12/24/2015 Blood Pressure 1: 142/66 Code : 8480-6 BMI: 24.9 Code : 81233-8 Heart Rate 1 : 54 bpm Height: 5'1" SpO2: 97% Weight: 132 lbs 12/18/2015 Blood Pressure 1: 152/62 Code : 8480-6 BMI: 25.5 Code : 28550-7 Heart Rate 1 : 66 bpm Height: 5'1" SpO2: 96% Weight: 135 lbs 12/11/2015 Blood Pressure 1: 136/54 Code : 8480-6 Heart Rate 1: 72 bpm SpO2: 98% Weight: 137 lbs 11/26/2015 Blood Pressure 1: 142/70 Code : 8480-6 BMI: 25.3 Code : 15367-2 Heart Rate 1 : 64 bpm Height: 5'1" SpO2: 97% Weight: 134 lbs 11/20/2015 Blood Pressure 1: 154/70 Code : 8480-6 Heart Rate 1: 65 bpm SpO2: 98% 10/23/2015 Blood Pressure 1: 138/62 Code : 8480-6 Heart Rate 1: 55 bpm SpO2: 98% 10/21/2015 Blood Pressure 1: 142/68 Code : 8480-6 BMI: 25.7 Code : 76968-0 Heart Rate 1 : 73 bpm Height: 5'1" SpO2: 98% Weight: 136 lbs 07/15/2015 Blood Pressure 1: 130/60 Code : 8480-6 BMI: 26.6 Code : 74068-0 Heart Rate 1 : 70 bpm Height: 5'1" SpO2: 97% Weight: 141 lbs 06/15/2015 Blood Pressure 1: 118/64 Code : 8480-6 BMI: 24.9 Code : 99241-8 Heart Rate 1 : 66 bpm Height: 5'1" SpO2: 99% Weight: 132 lbs 06/05/2015 Blood Pressure 1: 135/58 Code : 8480-6 Blood Pressure 1: 142/60 Code: 8480-6 Heart Rate 1: 64 bpm SpO2: 99% 05/19/2015 Blood Pressure 1: 146/60 Code : 8480-6 BMI: 27.1 Code : 47790-9 Heart Rate 1 : 66 bpm Height: 5'1" SpO2: 97% Weight: 143 lbs 8 oz 04/24/2015 Blood Pressure 1: 148/58 Code : 8480-6 BMI: 25.9 Code : 79086-6 Heart Rate 1 : 61 bpm Height: 5'1" SpO2: 98% Weight: 137 lbs 03/12/2015 Blood Pressure 1: 140/72 Code : 8480-6 BMI: 25.1 Code : 80806-7 Heart Rate 1 : 68 bpm Height: 5'1" SpO2: 98% Weight: 133 lbs 01/12/2015 Blood Pressure 1: 146/60 Code : 8480-6 BMI: 25.7 Code : 49988-0 Heart Rate 1 : 48 bpm Height: 5'1" SpO2: 97% Weight: 136 lbs 12/11/2014 Blood Pressure 1: 125/65 Code : 8480-6 Blood Pressure 1: 144/56 Code: 8480-6 BMI: 25.1 Code: 68135-3 Heart Rate 1: 56 bpm Height: 5'1" SpO2: 96% Weight: 133 lbs 12/01/2014 Blood Pressure 1: 136/60 Code : 8480-6 Heart Rate 1: 56 bpm SpO2: 96% Weight: 131 lbs 5 oz 08/14/2014 Blood Pressure 1: 132/72 Code : 8480-6 BMI: 25.5 Code : 95627-4 Heart Rate 1 : 73 bpm Height: 5'1" SpO2: 94% Weight: 135 lbs Functional Status No Functional Status data History of Present Illness Symptom Name Status Result Effective Date Notes rash Location-Major in the groin area 08/29/2017 [...] data Encounters Encounter Performer Location Codes Date 21618 EST. PATIENT, LEVEL III Diagnosis: Tinea corporis[ICD10: B35.4] Diagnosis: Essential (primary) hypertension[ICD10: I10] Doris Cohen MD, [facility] CPT-4: 23913 08/29/2017 ([id number]) 11947 EST. PATIENT, LEVEL III Diagnosis: Acute recurrent maxillary sinusitis[ICD10: J01.01] Diagnosis: Other allergic rhinitis[ICD10: J30.89] Doris Cohen MD, [facility] CPT-4: 96081 07/28/2017 18396 EST. PATIENT, LEVEL IV Diagnosis: Other acute sinusitis[ICD10: J01.80] Diagnosis: Other allergic rhinitis[ICD10: J30.89] Diagnosis: Otalgia, bilateral[ICD10: H92.03] Diagnosis: Pain in right knee[ICD10: M25.561] Diagnosis: Pain in left knee[ICD10: M25.562] Evelyn Cohen MD, [facility] CPT -4: 47749 06/20/2017 98216 EST. PATIENT, LEVEL IV Diagnosis: Other acute sinusitis[ICD10: J01.80] Diagnosis: Other allergic rhinitis[ICD10: J30.89] Diagnosis: Gastro-esophageal reflux disease without esophagitis[ICD10: K21.9] Evelyn Cohen MD, [facility] CPT-4: 18824 05/26/2017 96745 EST. PATIENT, LEVEL III Diagnosis: Essential (primary) hypertension[ICD10: I10] Evelyn Cohen MD, [facility] CPT-4: 03225 04/24/2017 ([id number]) 78047 EST. PATIENT, LEVEL IV Diagnosis: Essential (primary) hypertension[ICD10: I10] Diagnosis: Other abnormal glucose[ICD10: R73.09] Diagnosis: Mixed hyperlipidemia[ICD10: E78.2] Berenice Cohen MD, [facility] CPT-4: 38486 12/22/2016 47884 EST. PATIENT, LEVEL IV Diagnosis: Other acute sinusitis[ICD10: J01.80] Diagnosis: Other allergic rhinitis[ICD10: J30.89] Evelyn Cohen MD, [facility] CPT-4: 11234 12/16/2016 ([id number]) 56253 EST. PATIENT, LEVEL IV Diagnosis: Essential (primary) hypertension[ICD10: I10] Diagnosis: Mixed hyperlipidemia[ICD10: E78.2] Diagnosis: Dysuria[ICD10: R30.0] Berenice Cohen MD, [facility] CPT-4: 34219 08/15/2016 00413 EST. PATIENT, LEVEL III Diagnosis: Other acute sinusitis[ICD10: J01.80] Diagnosis: Other allergic rhinitis[ICD10: J30.89] Diagnosis: Otalgia, bilateral[ICD10: H92.03] Evelyn Cohen MD, [facility] CPT -4: 06338 08/02/2016 ([id number]) 99145 EST. PATIENT, LEVEL III Diagnosis: Acute recurrent maxillary sinusitis[ICD10: J01.01] Diagnosis: Otalgia, right ear[ICD10: H92.01] Doris oChen MD, [facility] CPT-4: 98451 07/21/2016 86063 EST. PATIENT, LEVEL III Diagnosis: Dysuria[ICD10: R30.0] Diagnosis: Other allergic rhinitis[ICD10: J30.89] Evelyn Cohen MD, [facility] CPT-4: 59043 07/01/2016 ([id number]) 09269 EST. PATIENT, LEVEL IV Diagnosis: Essential (primary) hypertension[ICD10: I10] Diagnosis: Mixed hyperlipidemia[ICD10: E78.2] Berenice Cohen MD, [facility] CPT-4: 80341 05/16/2016 21824 EST. PATIENT, LEVEL III Diagnosis: Mixed hyperlipidemia[ICD10: E78.2] Diagnosis: Essential (primary) hypertension[ICD10: I10] Diagnosis: Laceration without foreign body of left hand, subsequent encounter[ ICD10: S61.412D] Evelyn Cohen MD, [facility] CPT-4: 44576 04/06/2016 ([id number]) 42568 EST. PATIENT, LEVEL III Diagnosis: Essential (primary) hypertension[ICD10: I10] Berenice Cohen MD, [facility] CPT-4: 86873 03/30/2016 ([id number]) 41893 EST. 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 PATIENT, LEVEL III Diagnosis: Essential (primary) hypertension[ICD10: I10] [facility] CPT-4: 57623 12/24/2015 01095 EST. PATIENT, LEVEL III Diagnosis: Other acute sinusitis[ICD10: J01.80] Diagnosis: Other allergic rhinitis[ICD10: J30.89] Evelyn Cohen MD, [facility] CPT-4: 63420 12/18/2015 ([id number]) Miscellaneous no charge Diagnosis: Essential (primary) hypertension[ICD10: I10] [facility] CPT-4: 25140 12/11/2015 ([id number]) 68331 EST. PATIENT, LEVEL IV Diagnosis: Essential (primary) hypertension[ICD10: I10] Diagnosis: Other abnormal glucose[ICD10: R73.09] Diagnosis: Encounter for immunization[ICD10: Z23] [facility] CPT-4: 49264 11/26/2015 ([id number]) Miscellaneous no charge Diagnosis: Bitten by dog, initial encounter[ICD10: W54.0XXA] Evelyn Cohen MD, [facility] CPT-4: 16957 10/29/2015 ([id number]) Miscellaneous no charge Diagnosis: Essential (primary) hypertension[ICD10: I10] Diagnosis: Bitten by dog, initial encounter[ICD10: W54.0XXA] [facility] CPT-4: 50416 10/23/2015 75231 EST. PATIENT, LEVEL III Diagnosis: Cellulitis of face[ICD10: L03.211] Diagnosis: Bitten by dog, initial encounter[ICD10: W54.0XXA] [facility] CPT-4: 29896 10/21/2015 ([id number]) Miscellaneous no charge Diagnosis: Essential (primary) hypertension[ICD10: I10] [facility] CPT-4: 63812 07/15/2015 ([id number]) 37548 EST. PATIENT, LEVEL IV Diagnosis: Essential (primary) hypertension[ICD10: I10] Diagnosis: Mixed hyperlipidemia[ICD10: E78.2] Diagnosis: Dry mouth, unspecified[ICD10: R68.2] Berenice Cohen MD, [facility] CPT-4: 79804 06/15/2015 ([id number]) Miscellaneous no charge Diagnosis: Essential (primary) hypertension[ICD10: I10] Doris Cohen MD, [facility] CPT-4: 87444 06/05/2015 ([id number]) 56168 EST. PATIENT, LEVEL IV Diagnosis: Mammographic microcalcification found on diagnostic imaging of breast [ICD10: R92.0] Diagnosis: Edema, unspecified[ICD10: R60.9] Diagnosis: Essential (primary) hypertension[ICD10: I10] Berenice Cohen MD, [facility] CPT-4: 47423 05/19/2015 62063 EST. PATIENT, LEVEL IV Diagnosis: Other acute sinusitis[ICD10: J01.80] Diagnosis: Acute nasopharyngitis [common cold][ICD10: J00] Diagnosis: Other allergic rhinitis[ICD10: J30.89] Diagnosis: Localized edema[ICD10: R60.0] Diagnosis: Mixed hyperlipidemia[ICD10: E78.2] Evelyn Cohen MD, [facility] CPT-4: 12680 04/24/2015 ([id number]) 96556 EST. PATIENT, LEVEL IV Diagnosis: Essential (primary) hypertension[ICD10: I10] Diagnosis: Abscess of liver[ICD10: K75.0] Diagnosis: Anemia, unspecified[ICD10: D64.9] Berenice Cohen MD, [facility] CPT-4: 74943 03/12/2015 92029 EST. PATIENT, LEVEL IV Diagnosis: Essential (primary) hypertension[ICD10: I10] Diagnosis: Candidal stomatitis[ICD10: B37.0] Diagnosis: Pain in unspecified knee[ICD10: M25.569] Diagnosis: Edema, unspecified[ICD10: R60.9] Evelyn Cohen MD, [facility] CPT- 4: 59106 01/12/2015 ([id number]) 69213 EST. PATIENT, LEVEL III Diagnosis: Pain in right foot[ICD10: M79.671] [facility] CPT-4: 88844 12/11/2014 ([id number]) 61961 EST. PATIENT, LEVEL IV Diagnosis: Abscess of liver[ICD10: K75.0] Diagnosis: Hypo-osmolality and hyponatremia[ICD10: E87.1] Diagnosis: Essential (primary) hypertension[ICD10: I10] Diagnosis: VACCIN FOR INFLUENZA[ICD10: Z23] [facility] CPT-4: 63283 12/01/2014 ([id number]) OFFICE VISIT, NEW - LEVEL 4 Diagnosis: ESSENTIAL HYPERTENSION[ICD9: 401.9] Diagnosis: Chronic maxillary sinusitis[ICD9: 473.0] [facility] CPT-4: 40669 08/14/2014 Plan of Care Planned Activity Notes Codes Status Date Visit Plan: Tinea-rx sent to patient's pharmacy and instructed on use-keep groin clean/dry -call if symptoms do not resolve or if any worse HTN-elevated today-monitor and home and call if continues to be elevated 08/29/2017 Appointment: Doris Sheffield WPtel: [address] [place] [phone] (15 min) Moderate 08/29/2017 Patient Education: Patient [...] any worse 07/28/2017 Appointment: Doris Sheffield WPtel: [address] [place], [place] [phone] (30 min) Complex 07/28/2017 Patient Education: Patient [...] not improve. 06/20/2017 Appointment: Evelyn West WPtel: [address] [place] [phone] (15 min) Moderate 06/20/2017 Patient Education: Patient [...] not improving. 05/26/2017 Appointment: Evelyn West WPtel: [facility] (15 min) Moderate 05/26/2017 Patient Education: [...] concerns. 04/24/2017 Appointment: [phone] (30 min) Complex 04/24/2017 Patient Education: Patient [...] surrogate. 02/08/2017 Appointment: [phone] [facility] - Annual Wellness Visit 02/08/2017 Patient [...] vaccine today 12/22/2016 Appointment: Berenice Cohen WPtel: [phone] [facility] (15 min) Moderate 12/22/2016 Patient Education: Patient [...] spray. 12/16/2016 Appointment: Evelyn West WPtel: [phone] [facility] (30 min) Complex 12/16/2016 Patient Education: Patient Medication Summary Completed 12/16/2016 Appointment: Berenice Cohen WPtel: [phone] [facility] (15 min) Moderate 11/15/2016 Visit Plan: Hypertension [...] carbohydrates. 08/15/2016 Appointment: Berenice Cohen WPtel: [phone] [facility] (15 min) Moderate 08/15/2016 Patient Education: Patient Medication Summary Completed 08/15/2016 Appointment: Doris Sheffield WPtel: [phone] [phone] [place] (15 min) Moderate 08/05/2016 Visit Plan: [...] show improvement. 08/02/2016 Appointment: [phone] (30 min) Complex 08/02/2016 Patient Education: Patient [...] ear flushed 07/21/2016 Appointment: Doris Sheffield [phone] (15 min) Moderate 07/21/2016 Patient Education: Patient [...] 10mg nightly. 05/16/2016 [facility]ment: [phone] (15 min) Moderate 05/16/2016 Patient Education: [...] or concerns. 04/06/2016 Appointment: Evelyn West WPtel: [facility] (10 min) Simple 04/06/2016 Patient Education: [...] twice daily. 03/30/2016 Appointment: Berenice Cohen WPtel: [facility] [place] (15 min) Moderate 03/30/2016 Patient Education: Patient Medication Summary Completed 03/30/2016 Appointment: Berenice Cohen WPtel: [facility]6 [facility] (15 min) Moderate 03/24/2016 Visit Plan: Medicare [...] care surrogate. 02/01/2016 Appointment: Evelyn West WPtel: [facility]3 [facility] [place] [address] - Annual Wellness Visit 02/01/2016 Patient Education: Patient Medication Summary Completed 02/01/2016 Visit Plan: Apthous ulcer - rx for acyclovir 800mg tid x7 days Sample of Voltaren gel to use on knees tid prn 01/25/2016 Appointment: Berenice Cohen WPtel: [address] [place], [place] [phone] (15 min) Moderate 01/25/2016 Patient Education: Patient Medication Summary Completed 01/25/2016 Visit Plan: Hypertension - well controlled - continue with current medications, continue with no added salt diet. Pt has been encouraged to exercise daily. The pt has been advised to call the office if there are any acute concerns about change in blood pressure readings at home. 12/24/2015 Appointment: Berenice Cohen WPtel: [facility] (15 min) Moderate 12/24/2015 Patient Education: Patient [...] show improvement. 12/18/2015 Appointment: Doris Sheffield WPtel: [phone] [phone] (15 min) Moderate 12/18/2015 Patient Education: [...] - 11/26/2015 Appointment: Berenice Cohen WPtel: [phone] [facility] (15 min) Moderate 11/26/2015 Patient Education: Patient [...] in pain. 10/21/2015 Appointment: Doris Sheffield WPtel: [address] [phone] (15 min) Moderate 10/21/2015 Patient Education: [...] spray 06/15/2015 Appointment: Berenice Cohen WPtel: [phone] [facility] (15 min) Moderate 06/15/2015 Patient Education: Patient Medication Summary Completed 06/15/2015 Patient Education: Patient Medication Summary Completed 06/12/2015 Appointment: Berenice Cohen WPtel: [phone] [facility] (15 min) Moderate 06/11/2015 Appointment: Nurse Visit [...] the day 03/12/2015 Appointment: Berenice Cohen WPtel: [address] [place], [place] [address] (15 min) Moderate 03/12/2015 Patient Education: Patient [...] appointment with then soon. Pt to try Hachita [place] rub on the knees to help reduce [...] is sore 12/11/2014 Appointment: Berenice Cohen WPtel: [address] [place], [place] [phone] (15 min) Moderate 12/11/2014 Patient Education: [...] not improving. 12/01/2014 Appointment: Berenice Cohen WPtel: [facility]9 [facility] (15 min) Moderate 12/01/2014 Patient Education: Patient Medication Summary Completed 12/01/2014 Patient Education: Hypertension Completed 12/01/2014 Appointment: Berenice Cohen WPtel: [facility]5 [facility] (15 min) Moderate 09/15/2014 Visit Plan: Hypertension [...] not improve. 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 . No fracture of foot - recommended [...] TWO hours after a meal - try Hachita [place] on your knee. Decrease Salt in diet. [...] appointment with then soon. Pt to try Hachita [place] rub on the knees to help reduce [...]
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
--- OUTSIDE RECORDS SUMMARY | 2018-06-30 15:04 | XMS REPORT | CCD ---
Author Author Berenice Cohen Organization Berenice Cohen MD, [facility] Address [address] [place] [address] Phone Care Team Providers Care Engineering Mgr Name Role Phone PP Unavailable CCM Unavailable Summary Purpose Interface Exchange Insurance Providers Payer name Policy type / Coverage type Covered green party ID Effective Begin Date Effective End Date Take the Interview Commercial Insurance [id number] Unknown Unknown Family history Son Diagnosis Age [...] Unknown Retired 08/14/[address]: 138333141 Never smoker 08/14/[address]: 596484390 Never drinks alcohol 08/14/2014 Allergies, Adverse Reactions, Alerts Substance Reaction Codes Entered Date Inactivated Date Status AUGMENTIN hives RxNorm: 887141 08/14/2014 No Inactive Date Active [id number]-YBY-JPF REDUCTASE INHIBITORS myalgias Unknown 2015 No Inactive Date Active Past Medical History Illness Codes Condition Status Onset Date Resolved Date Encounter for general adult medical examination with abnormal findings ICD-9: V70.0 ICD-10: Z00.01 Active 01/31/2016 Unknown Essential (primary) hypertension ICD-9: 401.1 ICD-10: I10 Active 12/23/2015 Unknown Mixed hyperlipidemia ICD-9: 272.2 ICD-10: E78.2 Active 06/14/2015 Unknown Other abnormal glucose ICD-9: 790.29 ICD-10: R73.09 Active 11/25/2015 Unknown Other acute sinusitis ICD-9: 461.8 ICD-10: J01.80 Active 12/17/2015 Unknown Other allergic rhinitis ICD-9: 477.8 ICD-10: J30.89 Active 12/17/2015 Unknown Dysuria ICD-9: 788.1 ICD-10: R30.0 Active 11/19/2015 Unknown Otalgia, bilateral ICD -9: 388.70 ICD-10: H92.03 Active 08/02/2016 Unknown Acute recurrent maxillary sinusitis ICD-9: 461.0 [...] Codes Effective Dates Condition Status Encounter for general adult medical examination with abnormal findings ICD-9: V70.0 ICD-10: Z00.01 01/31/2016 Active Essential (primary) hypertension ICD-9: 401.1 ICD-10: I10 12/23/2015 Active Mixed hyperlipidemia ICD-9: 272.2 ICD-10: E78.2 06/14/2015 Active Other abnormal glucose ICD-9: 790.29 ICD-10: R73.09 11/25/2015 Active Other acute sinusitis ICD-9: 461.8 ICD-10: J01.80 12/17/2015 Active Other allergic rhinitis ICD-9: 477.8 ICD-10: J30.89 12/17/2015 Active Dysuria ICD-9: 788.1 ICD-10: R30.0 11/19/2015 Active Otalgia, bilateral ICD -9: 388.70 ICD-10: H92.03 08/02/2016 Active Acute recurrent maxillary sinusitis ICD-9: 461.0 [...] Start Date Stop Date Status Fill Instructions Lipitor 10 mg tablet RxNorm: 839640 1 Tablet(s) PO QHS 201711/06/2017 Active Zithromax Z-Dylan 250 mg tablet RxNorm: 977593 1 Tablet(s) PO UD 02/15/2017 No Stop Date Active z pack as directed meclizine 25 mg tablet RxNorm: 428586 TAKE ONE TABLET BY MOUTH THREE TIMES DAILY NEEDED 01/23/2017 No Stop Date Active Zithromax Z-Dylan 250 mg tablet RxNorm: 372108 1 Tablet(s) PO UD 01/05/2017 02/14/2017 Inactive z pack as directed losartan 50 mg tablet RxNorm: 250027 1 Tablet(s) PO daily 201607/19/2017 Active amlodipine 5 mg tablet RxNorm: 608865 1 Tablet(s) PO daily 12/16/2017 Active Zithromax Z-Dylan 250 mg tablet RxNorm: 569648 1 Tablet(s) PO UD 12/16/2016 01/04/2017 Inactive z pack as directed Zyrtec 10 mg tablet RxNorm: 9969403 1 Tablet(s) PO daily 12/1601/14/2017 Inactive Lipitor 10 mg tablet RxNorm: 475396 1 Tablet(s) PO QHS 201602/22/2017 Inactive Zithromax Z-Dylan 250 mg tablet RxNorm: 576882 1 Tablet(s) PO UD 09/27/2016 12/15/2016 Inactive z pack as directed Lipitor 10 mg tablet RxNorm: 227241 1 Tablet(s) PO QHS 201610/25/2016 Inactive guaifenesin 400 mg tablet RxNorm: 370109 1 Tablet(s) PO BID as needed 08/04/2016 No Stop Date Active cefdinir 300 mg capsule RxNorm: 471989 1 Capsule(s) PO BID started by Dr. Davila 08/04/2016 08/13/2016 Inactive amlodipine 10 mg tablet RxNorm: 358766 1 Tablet(s) PO daily 07/201612/21/2016 Inactive Keflex 500 mg capsule RxNorm: 238149 1 Capsule(s) PO TID 201607/27/2016 Inactive Xanax 0.25 mg tablet RxNorm: 091768 1 Tablet(s) PO TID as needed anxiety 07/01/2016 08/27/2016 Inactive Zyrtec 10 mg tablet RxNorm: 8772606 1 Tablet(s) PO daily 07/0107/30/2016 Inactive amlodipine 5 mg tablet RxNorm: 432182 1 Tablet(s) PO daily 06/201607/30/2016 Inactive Keflex 500 mg capsule RxNorm: 721234 1 Capsule(s) PO TID 201607/03/2016 Inactive Keflex 500 mg capsule RxNorm: 553035 1 Capsule(s) PO TID 201606/23/2016 Inactive Keflex 500 mg capsule RxNorm: 472310 1 Capsule(s) PO TID 201606/30/2016 Inactive Flonase Allergy Relief 50 mcg/actuation nasal spray, suspension RxNorm: 5265117 USE ONE SPRAY(S) IN EACH NOSTRIL TWICE DAILY 06/20/2016 05/15/2017 Active amlodipine 10 mg tablet RxNorm: 187715 1 Tablet(s) PO daily 04/201606/28/2016 Inactive Lipitor 10 mg tablet RxNorm: 389379 1 Tablet(s) PO QHS 201608/14/2016 Inactive Flonase Allergy Relief 50 mcg/actuation nasal spray, suspension RxNorm: 8140961 USE ONE SPRAY(S) IN EACH NOSTRIL TWICE DAILY 04/18/2016 05/17/2016 Inactive cephalexin 500 mg capsule RxNorm: 561998 1 Capsule(s) PO TID 04/05/2016 Inactive take with probiotics BID amlodipine 10 mg tablet RxNorm: 955353 1 Tablet(s) PO daily 02/201605/29/2016 Inactive Bactroban 2 % topical cream RxNorm: 152730 1 Application TOP BID 03/30/2016 04/08/2016 Inactive Zithromax Z-Dylan 250 mg tablet RxNorm: 900852 1 Tablet(s) PO UD 03/10/2016 05/15/2016 Inactive z pack as directed Keflex 500 mg capsule RxNorm: 684001 1 Capsule(s) PO TID 201502/25/2016 Inactive take with probiotics BID acyclovir 800 mg tablet RxNorm: 363214 1 Tablet(s) PO TID 01/2402/21/2016 Inactive Zithromax Z-Dylan 250 mg tablet RxNorm: 482089 1 Tablet(s) PO UD 01/19/2016 01/24/2016 Inactive z pack Flonase Allergy Relief 50 mcg/actuation nasal spray, suspension RxNorm: 8030061 USE ONE SPRAY(S) IN EACH NOSTRIL TWICE DAILY 12/28/2015 02/25/2016 Inactive Kenalog 40 mg/mL suspension for injection RxNorm: 9353829 Milliliter(s) Inj 12/18/2015 12/18/2015 Inactive Keflex 500 mg capsule RxNorm: 775456 1 Capsule(s) PO TID 201512/24/2015 Inactive Zithromax Z-Dylan 250 mg tablet RxNorm: 038830 1 Tablet(s) PO UD 12/09/2015 12/23/2015 Inactive z pack meclizine 25 mg tablet RxNorm: 819518 1 Tablet(s) PO TID as needed 12/09/2015 12/08/2015 Inactive meclizine 25 mg tablet RxNorm: 995333 1 Tablet(s) PO TID as needed 12/09/2015 02/26/2016 Inactive Keflex 500 mg capsule RxNorm: 922171 1 Capsule(s) PO TID 201511/22/2015 Inactive Cipro 500 mg tablet RxNorm: 677803 1 Tablet(s) PO BID 201511/13/2015 Inactive Keflex 500 mg capsule RxNorm: 755771 1 Capsule(s) PO TID 201510/30/2015 Inactive Xanax 0.25 mg tablet RxNorm: 662884 1 Tablet(s) PO TID as needed anxiety 09/18/2015 11/13/2015 Inactive Keflex 500 mg capsule RxNorm: 945346 1 Capsule(s) PO TID 201508/19/2015 Inactive losartan 50 mg tablet RxNorm: 284049 1 Tablet(s) PO daily 201507/07/2015 Inactive Pepcid 20 mg tablet RxNorm: 978838 1 Tablet(s) PO BID 201507/07/2015 Inactive Pepcid 20 mg tablet RxNorm: 856910 1 Tablet(s) PO BID 201501/31/2016 Inactive losartan 50 mg tablet RxNorm: 532268 1 Tablet(s) PO daily 201501/31/2016 Inactive prednisone 20 mg tablet RxNorm: 373137 2 Tablet(s) PO daily 06/22/2015 Inactive prednisone 20 mg tablet RxNorm: 868904 2 Tablet(s) PO daily 12/23/2015 Inactive Diflucan 100 mg tablet RxNorm: 279136 TAKE ONE TABLET BY MOUTH ONCE DAILY 06/12/2015 12/23/2015 Inactive Zithromax Z-Dylan 250 mg tablet RxNorm: 500855 1 Tablet(s) PO UD 06/05/2015 07/06/2015 Inactive z pack amlodipine 5 mg tablet RxNorm: 900982 1 Tablet(s) PO daily 03/29/2016 Inactive Zetia 10 mg tablet RxNorm: 125988 1 Tablet(s) PO daily 201506/14/2015 Inactive valsartan 160 mg tablet RxNorm: 929629 1 Tablet(s) PO daily 07/07/2015 Inactive Lipitor 10 mg tablet RxNorm: 813542 1 Tablet(s) PO QHS 201505/18/2015 Inactive Lipitor 10 mg tablet RxNorm: 509511 1 Tablet(s) PO QHS 201504/27/2015 Inactive Zithromax 250 mg tablet RxNorm: 559314 Tablet(s) PO UD 201504/28/2015 Inactive Keflex 500 mg capsule RxNorm: 312387 1 Capsule(s) PO TID 201503/22/2015 Inactive Keflex 500 mg capsule RxNorm: 138322 1 Capsule(s) PO TID 201504/01/2015 Inactive Xanax 0.25 mg tablet RxNorm: 071488 1 Tablet(s) PO TID as needed anxiety 03/12/2015 07/04/2016 Inactive carvedilol 25 mg tablet RxNorm: 152638 1 Tablet(s) PO BID 03/1201/31/2016 Inactive amlodipine 5 mg tablet RxNorm: 678446 1 Tablet(s) PO BID 201505/18/2015 Inactive Diflucan 100 mg tablet RxNorm: 684615 1 Tablet(s) PO daily 03/21/2015 Inactive Diflucan 100 mg tablet RxNorm: 694950 1 Tablet(s) PO daily 02/14/2015 Inactive Diflucan 100 mg tablet RxNorm: 290458 1 Tablet(s) PO daily 06/201401/05/2015 Inactive Diflucan 100 mg tablet RxNorm: 517508 1 Tablet(s) PO daily 06/201412/31/2014 Inactive nystatin 100,000 unit/mL oral suspension RxNorm: 491910 5 Milliliter(s) PO QID 12/24/2014 06/14/2015 Inactive nystatin 100,000 unit/mL oral suspension RxNorm: 184186 5 Milliliter(s) PO QID 12/24/2014 12/23/2014 Inactive Zithromax 250 mg tablet RxNorm: 740711 1 Tablet(s) PO daily 12/19/2014 Inactive Zithromax 250 mg tablet RxNorm: 241977 1 Tablet(s) PO daily 12/14/2014 Inactive Flonase Allergy Relief 50 mcg/actuation nasal spray, suspension RxNorm: 1 [place] NASAL BID 12/11/2014 12/10/2014 Inactive Flonase Allergy Relief 50 mcg/actuation nasal spray, suspension RxNorm: 1827800 1 [place] NASAL BID 12/11/20142015 Inactive amlodipine 5 mg tablet RxNorm: 565902 2 Tablet(s) PO daily 11/13/2014 Inactive amlodipine 5 mg tablet RxNorm: 043702 2 Tablet(s) PO daily 03/11/2015 Inactive Lotrisone 1 %-0.05 % topical cream RxNorm: 563206 1 TOP BID until healed 10/17/2014 10/30/2014 Inactive Lotrisone 1 %-0.05 % topical cream RxNorm: 450905 1 TOP BID until healed 10/16/2014 10/16/2014 Inactive Lotrisone 1 %-0.05 % topical cream RxNorm: 840532 1 TOP BID until healed 10/06/2014 10/15/2014 Inactive Keflex 500 mg capsule RxNorm: 488139 1 Capsule(s) PO TID 201408/11/2014 Inactive Keflex 500 mg capsule RxNorm: 012351 1 Capsule(s) PO TID 201408/18/2014 Inactive clotrimazole 1 % topical solution RxNorm: 524484 1 Drop(s) TOP BID No Start Date Active Vitamin D3 5,000 unit tablet RxNorm: 622348 1 Tablet(s) PO daily No Start Date Active guaifenesin 400 mg tablet RxNorm: 647371 1 Tablet(s) PO BID as needed No Start Date 08/03/2016 Inactive Lotrisone 1 %-0.05 % topical cream RxNorm: 408289 1 TOP BID until healed No Start Date 10/05/2014 Inactive lisinopril 40 mg tablet RxNorm: 238645 1 Tablet(s) PO daily No Start Date 05/18/2015 Inactive amlodipine 5 mg tablet RxNorm: 184062 1 Tablet(s) PO daily No Start Date 11/13/2014 Inactive indapamide 1.25 mg tablet RxNorm: 565383 1 Tablet(s) PO daily No Start Date 01/31/2016 Inactive aspirin 81 mg tablet RxNorm: 913316 1 Tablet(s) PO daily No Start Date 02/07/2017 Inactive Medication Administered Medication Codes Instructions Start Date Status Kenalog 40 mg/mL suspension for injection RxNorm: 6718161 Milliliter 12/18/2015 No longer Active Immunizations Vaccine Codes Date Status Influenza CVX: 141 12/05/2016 completed Influenza CVX: 141 11/26/2015 completed PPD Unknown 06/05/2015 completed Influenza CVX: 141 12/01/2014 completed Influenza CVX: 141 11/27/2012 completed Pneumococcal CVX: 33 11/28/2011 completed Assessments Condition Codes Effective Dates Encounter for general adult medical examination with abnormal findings ICD-10: Z00.01 ICD-9: V70.0 02/08/2017 Essential (primary) hypertension ICD-10: I10 ICD-9: 401.1 12/22/2016 Other abnormal glucose ICD-10: R73.09 ICD-9: 790.29 12/22/2016 Mixed hyperlipidemia ICD-10: E78.2 ICD-9: 272.2 12/22/2016 Other acute sinusitis ICD-10: J01.80 ICD-9: 461.8 12/16/2016 Other allergic rhinitis ICD-10: J30.89 ICD-9: 477.8 12/16/2016 Dysuria ICD-10: R30.0 ICD-9: 788.1 08/15/2016 Otalgia, bilateral ICD-10: H92.03 ICD-9: 388.70 08/02/2016 Otalgia, right ear ICD-10: H92.01 ICD-9: 388.70 07/21/2016 Acute recurrent maxillary sinusitis ICD-10: J01.01 ICD-9: 461.0 07/21/2016 Essential (primary) hypertension ICD-10: I10 ICD-9: [...] and hyponatremia ICD-10: E87.1 ICD-9: 276.1 12/01/2014 Chronic maxillary sinusitis ICD-9: 473.0 08/14/2014 ESSENTIAL HYPERTENSION ICD-9: 401.9 08/14 Reason For Visit Reason For Visit Effective Dates Notes Annual Medicare Wellness Exam 02/08/2017 hypertension 12/22/2016 [...] Lipid Ord30 C/HDL 4.3 Ratio 12/01/2016 %Hba1C Abg584 % HbA1c 01794-7 6.5 % 12/01/2016 %Hba1C Lus841 Gluc Ave 140 mg/dL 12/01/2016 Urine Culture [...] Urinalysis Ord28 U-Com Culture to follow 06/24/2016 Lipid Ord30 CHOL 265 mg/dL 04/12/2016 Lipid Ord30 HDL 42.0 mg/dl 04/12/2016 Lipid Ord30 TRIG 246 mg/dL 04/12/2016 Lipid Ord30 LDL 174 mg/dL 04/12/2016 Lipid Ord30 C/HDL 6.3 Ratio 04/12/2016 Tsh Ord6 hTSH II 2.49 uIU/mL 04/12/2016 Comp Metabolic Lia000 NA 129 mEq/L 04/12/2016 Comp Metabolic Ywz296 K 4.0 mEq/L 04/12/2016 Comp Metabolic Qlv465 CL 93 mEq/L 04/12/2016 Comp Metabolic Hjj638 CO2 29.0 mEq/L 04/12/2016 Comp Metabolic Sxf928 ANION GAP 11 04/12/2016 Comp Metabolic Mjm296 GLUCOSE 100 mg/dL 04/12/2016 Comp Metabolic Ljj121 Creat 1.0 mg/dL 04/12/2016 Comp Metabolic Hhv603 eGFR 55 ml/min/1.73m2 04/12/2016 Comp Metabolic Qxl769 BUN 19 mg/dL 04/12/2016 Comp Metabolic Xws507 B/C Ratio 18.8 Ratio 04/12/2016 Comp Metabolic Ywe092 CALCIUM 9.3 mg/dL 04/12/2016 Comp Metabolic Ezk138 ALK PHOS 38 U/L 04/12/2016 Comp Metabolic Jem477 AST(SGOT) 17 U/L 04/12/2016 Comp Metabolic Nmx901 ALT(SGPT) 11 U/L 04/12/2016 Comp Metabolic Zkw629 BILI T 1.0 mg/dL 04/12/2016 Comp Metabolic Cpe896 ALBUMIN 4.2 g/dL 04/12/2016 Comp Metabolic Uyp015 TPRO 6.6 g/dL 04/12/2016 Comp Metabolic Tkm394 GLOB 2.4 g/dL 04/12/2016 Comp Metabolic Kfn600 A/G Ratio 1.8 Ratio 04/12/2016 Comp Metabolic Gbx336 Osmo 261 mOsmo 04/12/2016 Cbc With Differential Ord2 WBC 8.04 [...] 31.3 pg 04/12/2016 Cbc With Differential Ord2 [place]% 13.3 % 04/12/2016 Cbc With Differential Ord2 [...] 2.85 K/ul 04/12/2016 Cbc With Differential Ord2 [place] ABS# 1.1 K/ul 04/12/2016 Cbc With Differential Ord2 Eos ABS# 0.1 K/ul 04/12/2016 Cbc With Differential Ord2 Baso ABS# 0.0 K/ul 04/12/2016 Tsh Ord6 hTSH II 1.83 uIU/mL 06/12/2015 Comp Metabolic Dlq447 NA 137 mEq/L 06/12/2015 Comp Metabolic Zjz764 K 4.4 mEq/L 06/12/2015 Comp Metabolic Ewn052 CL 103 mEq/L 06/12/2015 Comp Metabolic Fth954 CO2 27.0 mEq/L 06/12/2015 Comp Metabolic Btg688 ANION GAP 11 06/12/2015 Comp Metabolic Zwn334 GLUCOSE 87 mg/dL 06/12/2015 Comp Metabolic Cfc072 Creat 1.3 mg/dL 06/12/2015 Comp Metabolic Xro929 eGFR 43 ml/min/1.73m2 06/12/2015 Comp Metabolic Ioz532 BUN 32 mg/dL 06/12/2015 Comp Metabolic Vxe077 B/C Ratio 25.4 Ratio 06/12/2015 Comp Metabolic Zmr018 CALCIUM 9.5 mg/dL 06/12/2015 Comp Metabolic Psg962 ALK PHOS 36 U/L 06/12/2015 Comp Metabolic Unk413 AST(SGOT) 16 U/L 06/12/2015 Comp Metabolic Mxt090 ALT(SGPT) 17 U/L 06/12/2015 Comp Metabolic Hni018 BILI T 1.0 mg/dL 06/12/2015 Comp Metabolic Zzy361 ALBUMIN 4.1 g/dL 06/12/2015 Comp Metabolic Fdb992 TPRO 6.5 g/dL 06/12/2015 Comp Metabolic Gtg550 GLOB 2.5 g/dL 06/12/2015 Comp Metabolic Fvi235 A/G Ratio 1.7 Ratio 06/12/2015 Comp Metabolic Amg978 Osmo 280 mOsmo 06/12/2015 Cbc With Differential Ord2 WBC 8.01 K/ul 06/12/2015 Cbc With Differential Ord2 RBC 3.96 M/ul 06/12/2015 Cbc With Differential Ord2 HGB 12.1 g/dl 06/12/2015 Cbc With Differential Ord2 Neut% 61.9 % 06/12/2015 Cbc With Differential Ord2 HCT 36.6 % 06/12/2015 Cbc With Differential Ord2 Lymph% 24.5 % 06/12/2015 Cbc With Differential Ord2 MCV 92.4 fl 06/12/2015 Cbc With Differential Ord2 [place]% 11.0 % 06/12/2015 Cbc With Differential Ord2 MCH 30.6 pg 06/12/2015 Cbc With Differential Ord2 Eos% 2.1 % 06/12/2015 Cbc With Differential Ord2 MCHC 33.1 pg 06/12/2015 Cbc With Differential Ord2 PLT 191 K/ul 06/12/2015 Cbc With Differential Ord2 Baso% 0.5 % 06/12/2015 Cbc With Differential Ord2 Neut ABS# 4.96 K/ul 06/12/2015 Cbc With Differential Ord2 RDW 13.7 % 06/12/2015 Cbc With Differential Ord2 Lymph ABS# 1.96 K/ul 06/12/2015 Cbc With Differential Ord2 [place] ABS# 0.9 K/ul 06/12/2015 Cbc With Differential Ord2 Eos ABS# 0.2 K/ul 06/12/2015 Cbc With Differential Ord2 Baso ABS# 0.0 K/ul 06/12/2015 Cbc With Differential Ord2 New Analyzer Notice Please note new ref ranges starting 03-11-2015 due to implemntation of new five part differential hematolgy analyzer. 06/12/2015 Lipid Ord30 CHOL 250 mg/dL 06/12/2015 Lipid Ord30 HDL 56.0 mg/dl 06/12/2015 Lipid Ord30 TRIG 144 mg/dL 06/12/2015 Lipid Ord30 LDL 165 mg/dL 06/12/2015 Lipid Ord30 C/HDL 4.5 Ratio 06/12/2015 Lipid Ord30 CHOL 289 mg/dL 03/12/2015 Lipid Ord30 HDL 52.0 mg/dl 03/12/2015 Lipid Ord30 TRIG 154 mg/dL 03/12/2015 Lipid Ord30 LDL 206 mg/dL 03/12/2015 Lipid Ord30 C/HDL 5.6 Ratio 03/12/2015 Comp Metabolic Urb664 NA 139 mEq/L 03/12/2015 Comp Metabolic Fln011 K 4.2 mEq/L 03/12/2015 Comp Metabolic Dyc713 CL 101 mEq/L 03/12/2015 Comp Metabolic Zpl785 CO2 28.0 mEq/L 03/12/2015 Comp Metabolic Zqm995 ANION GAP 14 03/12/2015 Comp Metabolic Cra591 GLUCOSE 78 mg/dL 03/12/2015 Comp Metabolic Opj812 Creat 1.1 mg/dL 03/12/2015 Comp Metabolic Bic897 eGFR 51 ml/min/1.73m2 03/12/2015 Comp Metabolic Tls788 BUN 17 mg/dL 03/12/2015 Comp Metabolic Uts175 B/C Ratio 15.6 Ratio 03/12/2015 Comp Metabolic Ogv078 CALCIUM 9.4 mg/dL 03/12/2015 Comp Metabolic Mia249 ALK PHOS 46 U/L 03/12/2015 Comp Metabolic Vbs031 AST(SGOT) 16 U/L 03/12/2015 Comp Metabolic Nyh356 ALT(SGPT) 12 U/L 03/12/2015 Comp Metabolic Eft173 BILI T 0.8 mg/dL 03/12/2015 Comp Metabolic Fvr390 ALBUMIN 4.1 g/dL 03/12/2015 Comp Metabolic Gkk067 TPRO 6.6 g/dL 03/12/2015 Comp Metabolic Crl570 GLOB 2.6 g/dL 03/12/2015 Comp Metabolic Pxv015 A/G Ratio 1.6 Ratio 03/12/2015 Comp Metabolic Uel879 Osmo 278 mOsmo 03/12/2015 Cbc With Differential [...] 94.5 fl 03/12/2015 Cbc With Differential Ord2 [place]% 10.7 % 03/12/2015 Cbc With Differential Ord2 [...] 2.00 K/ul 03/12/2015 Cbc With Differential Ord2 [place] ABS# 1.0 K/ul 03/12/2015 Cbc With Differential Ord2 Eos ABS# 0.1 K/ul 03/12/2015 Cbc With Differential Ord2 Baso ABS# 0.0 K/ul 03/12/2015 Cbc With Differential Ord2 New Analyzer Notice Please note new ref ranges starting 03-11-2015 due to implemntation of new five part differential hematolgy analyzer. 03/12/2015 Cbc With Differential Ord2 WBC 6.7 [...] With Differential Ord2 RDW 14.2 % 01/12/2015 Tsh Ord6 hTSH II 3.15 uIU/mL 12/01/2014 Comp Metabolic Kbq246 NA 132 mEq/L 12/01/2014 Comp Metabolic Dfz657 K 4.4 mEq/L 12/01/2014 Comp Metabolic Ryw407 CL 99 mEq/L 12/01/2014 Comp Metabolic Bfo168 CO2 27.0 mEq/L 12/01/2014 Comp Metabolic Jtb297 ANION GAP 10 12/01/2014 Comp Metabolic Npp793 GLUCOSE 86 mg/dL 12/01/2014 Comp Metabolic Pgd812 Creat 1.2 mg/dL 12/01/2014 Comp Metabolic Xbz265 eGFR 46 ml/min/1.73m2 12/01/2014 Comp Metabolic Hro888 BUN 32 mg/dL 12/01/2014 Comp Metabolic Bbb113 B/C Ratio 27.1 Ratio 12/01/2014 Comp Metabolic Qvz537 CALCIUM 9.4 mg/dL 12/01/2014 Comp Metabolic Vet412 ALK PHOS 35 U/L 12/01/2014 Comp Metabolic Owb498 AST(SGOT) 14 U/L 12/01/2014 Comp Metabolic Cbh816 ALT(SGPT) 13 U/L 12/01/2014 Comp Metabolic Gvq903 BILI T 0.8 mg/dL 12/01/2014 Comp Metabolic Sxb552 ALBUMIN 4.0 g/dL 12/01/2014 Comp Metabolic Wwg973 TPRO 6.8 g/dL 12/01/2014 Comp Metabolic Zai409 GLOB 2.8 g/dL 12/01/2014 Comp Metabolic Jtx360 A/G Ratio 1.4 Ratio 12/01/2014 Comp Metabolic Kbx859 Osmo 271 mOsmo 12/01/2014 Cbc With Differential Ord2 WBC 11.8 [...] Result Effective Dates Constitutional No recent illness 2016 Constitutional No [...] Procedures Procedure Codes Date PPPS, SUBSEQ VISIT CPT -4: G0439 02/08/2017 URINALYSIS NONAUTO W/O SCOPE CPT-4: 93178 08/15/2016 PPPS, SUBSEQ VISIT CPT -4: G0439 02/01/2016 TRIAMCINOLONE ACET INJ NOS CPT-4: J3301 12/18/2015 ADMIN INFLUENZA VIRUS VAC CPT-4: G0008 11/26/2015 FLU VACC 4 GISELA 3 YRS PLUS IM Formatting Model/CDA Sections, Assigned to/Malina Mazariegos SNOMED CT: 27226490 CPT-4: 24479Naatcak 11/26/2015 URINALYSIS NONAUTO W/O SCOPE CPT-4: 25100 11/20/2015 URINALYSIS NONAUTO W/O SCOPE CPT-4: 04370 11/13/2015 IMMUNIZATION ADMIN CPT -4: 95136 12/01/2014 FLU VACC 4 GISELA 3 YRS PLUS IM Formatting Model/CDA Sections, Assigned to/Malina Mazariegos SNOMED CT: 49469289 CPT-4: 04498Psipqjl 12/01/2014 Vital Signs Date Vital 02/08/2017 Blood Pressure 1: 134/76 Code : 8480-6 BMI: 24.9 Code : 59055-8 Heart Rate 1 : 67 bpm Height: 5'1" SpO2: 98% Waist Measure (cm): 84681 cm Weight: 132 lbs 12/22/2016 Blood Pressure 1: 156/80 Code : 8480-6 BMI: 24.2 Code : 48120-4 Heart Rate 1 : 65 bpm Height: 5'1" SpO2: 98% Weight: 128 lbs 12/16/2016 Blood Pressure 1: 138/62 Code : 8480-6 BMI: 23.8 Code : 97165-7 Heart Rate 1 : 63 bpm Height: 5'1" SpO2: 98% Weight: 126 lbs 08/15/2016 Blood Pressure 1: 130/60 Code : 8480-6 BMI: 25.3 Code : 70163-8 Heart Rate 1 : 72 bpm Height: 5'1" SpO2: 95% Weight: 134 lbs 08/02/2016 Blood Pressure 1: 160/62 Code : 8480-6 BMI: 25.3 Code : 15521-9 Heart Rate 1 : 67 bpm Height: 5'1" SpO2: 97% Weight: 134 lbs 07/21/2016 Blood Pressure 1: 148/66 Code : 8480-6 BMI: 25.9 Code : 08596-8 Heart Rate 1 : 71 bpm Height: 5'1" SpO2: 97% Temperature: 36.8 (C) / 98.2 (F) Weight: 137 lbs 07/01/2016 Blood Pressure 1: 142/72 Code : 8480-6 BMI: 26.5 Code : 07370-7 Heart Rate 1 : 68 bpm Height: 5'1" SpO2: 94% Weight: 140 lbs 05/16/2016 Blood Pressure 1: 162/76 Code : 8480-6 Blood Pressure 1: 138/68 Code: 8480-6 BMI: 25.7 Code: 43746-6 Heart Rate 1: 58 bpm Height: 5'1" SpO2: 98% Weight: 136 lbs 04/06/2016 Blood Pressure 1: 162/72 Code : 8480-6 Blood Pressure 1: 138/74 Code: 8480-6 BMI: 25.7 Code: 77490-1 Heart Rate 1: 75 bpm Height: 5'1" SpO2: 97% Weight: 136 lbs 03/30/2016 Blood Pressure 1: 188/80 Code : 8480-6 BMI: 26.3 Code : 16239-0 Heart Rate 1 : 75 bpm Height: 5'1" SpO2: 98% Weight: 139 lbs 02/01/2016 Blood Pressure 1: 140/72 Code : 8480-6 BMI: 25.3 Code : 86442-3 Heart Rate 1 : 65 bpm Height: 5'1" SpO2: 97% Waist Measure (cm): 84 cm Weight: 134 lbs 01/25/2016 Blood Pressure 1: 140/74 Code : 8480-6 BMI: 25.1 Code : 51499-4 Heart Rate 1 : 66 bpm Height: 5'1" SpO2: 98% Weight: 133 lbs 12/24/2015 Blood Pressure 1: 142/66 Code : 8480-6 BMI: 24.9 Code : 37951-6 Heart Rate 1 : 54 bpm Height: 5'1" SpO2: 97% Weight: 132 lbs 12/18/2015 Blood Pressure 1: 152/62 Code : 8480-6 BMI: 25.5 Code : 80351-5 Heart Rate 1 : 66 bpm Height: 5'1" SpO2: 96% Weight: 135 lbs 12/11/2015 Blood Pressure 1: 136/54 Code : 8480-6 Heart Rate 1: 72 bpm SpO2: 98% Weight: 137 lbs 11/26/2015 Blood Pressure 1: 142/70 Code : 8480-6 BMI: 25.3 Code : 96651-1 Heart Rate 1 : 64 bpm Height: 5'1" SpO2: 97% Weight: 134 lbs 11/20/2015 Blood Pressure 1: 154/70 Code : 8480-6 Heart Rate 1: 65 bpm SpO2: 98% 10/23/2015 Blood Pressure 1: 138/62 Code : 8480-6 Heart Rate 1: 55 bpm SpO2: 98% 10/21/2015 Blood Pressure 1: 142/68 Code : 8480-6 BMI: 25.7 Code : 97200-2 Heart Rate 1 : 73 bpm Height: 5'1" SpO2: 98% Weight: 136 lbs 07/15/2015 Blood Pressure 1: 130/60 Code : 8480-6 BMI: 26.6 Code : 62304-4 Heart Rate 1 : 70 bpm Height: 5'1" SpO2: 97% Weight: 141 lbs 06/15/2015 Blood Pressure 1: 118/64 Code : 8480-6 BMI: 24.9 Code : 87427-2 Heart Rate 1 : 66 bpm Height: 5'1" SpO2: 99% Weight: 132 lbs 06/05/2015 Blood Pressure 1: 135/58 Code : 8480-6 Blood Pressure 1: 142/60 Code: 8480-6 Heart Rate 1: 64 bpm SpO2: 99% 05/19/2015 Blood Pressure 1: 146/60 Code : 8480-6 BMI: 27.1 Code : 53132-1 Heart Rate 1 : 66 bpm Height: 5'1" SpO2: 97% Weight: 143 lbs 8 oz 04/24/2015 Blood Pressure 1: 148/58 Code : 8480-6 BMI: 25.9 Code : 65267-5 Heart Rate 1 : 61 bpm Height: 5'1" SpO2: 98% Weight: 137 lbs 03/12/2015 Blood Pressure 1: 140/72 Code : 8480-6 BMI: 25.1 Code : 31953-8 Heart Rate 1 : 68 bpm Height: 5'1" SpO2: 98% Weight: 133 lbs 01/12/2015 Blood Pressure 1: 146/60 Code : 8480-6 BMI: 25.7 Code : 55418-0 Heart Rate 1 : 48 bpm Height: 5'1" SpO2: 97% Weight: 136 lbs 12/11/2014 Blood Pressure 1: 125/65 Code : 8480-6 Blood Pressure 1: 144/56 Code: 8480-6 BMI: 25.1 Code: 80904-1 Heart Rate 1: 56 bpm Height: 5'1" SpO2: 96% Weight: 133 lbs 12/01/2014 Blood Pressure 1: 136/60 Code : 8480-6 Heart Rate 1: 56 bpm SpO2: 96% Weight: 131 lbs 5 oz 08/14/2014 Blood Pressure 1: 132/72 Code : 8480-6 BMI: 25.5 Code : 17021-9 Heart Rate 1 : 73 bpm Height: 5'1" SpO2: 94% Weight: 135 lbs Functional Status No Functional Status data History of Present Illness Symptom Name Status Result Effective Date Notes Annual Medicare Wellness Exam Alcohol Use does [...] data Encounters Encounter Performer Location Codes Date (99204 EST. PATIENT, LEVEL IV Diagnosis: Essential (primary) hypertension[ICD10: I10] Diagnosis: Other abnormal glucose[ICD10: R73.09] Diagnosis: Mixed hyperlipidemia[ICD10: E78.2] Berenice Cohen MD, [facility] CPT-4: 44749 12/22/2016 81777 EST. PATIENT, LEVEL IV Diagnosis: Other acute sinusitis[ICD10: J01.80] Diagnosis: Other allergic rhinitis[ICD10: J30.89] Evelyn Cohen MD, [facility] CPT-4: 92794 12/16/2016 ([id number]) 71304 EST. PATIENT, LEVEL IV Diagnosis: Essential (primary) hypertension[ICD10: I10] Diagnosis: Mixed hyperlipidemia[ICD10: E78.2] Diagnosis: Dysuria[ICD10: R30.0] Berenice Cohen MD, [facility] CPT-4: 89270 08/15/2016 47917 EST. PATIENT, LEVEL III Diagnosis: Other acute sinusitis[ICD10: J01.80] Diagnosis: Other allergic rhinitis[ICD10: J30.89] Diagnosis: Otalgia, bilateral[ICD10: H92.03] Evelyn Cohen MD, [facility] CPT -4: 70492 08/02/2016 ([id number]) 69432 EST. PATIENT, LEVEL III Diagnosis: Acute recurrent maxillary sinusitis[ICD10: J01.01] Diagnosis: Otalgia, right ear[ICD10: H92.01] Doris Cohen MD, [facility] CPT-4: 24927 07/21/2016 36912 EST. PATIENT, LEVEL III Diagnosis: Dysuria[ICD10: R30.0] Diagnosis: Other allergic rhinitis[ICD10: J30.89] Evelyn Cohen MD, [facility] CPT-4: 30474 07/01/2016 ([id number]) 14510 EST. PATIENT, LEVEL IV Diagnosis: Essential (primary) hypertension[ICD10: I10] Diagnosis: Mixed hyperlipidemia[ICD10: E78.2] Berenice Cohen MD, [facility] CPT-4: 97537 05/16/2016 77293 EST. PATIENT, LEVEL III Diagnosis: Mixed hyperlipidemia[ICD10: E78.2] Diagnosis: Essential (primary) hypertension[ICD10: I10] Diagnosis: Laceration without foreign body of left hand, subsequent encounter[ ICD10: S61.412D] Evelyn Cohen MD, [facility] CPT-4: 85380 04/06/2016 ([id number]) 60352 EST. PATIENT, LEVEL III Diagnosis: Essential (primary) hypertension[ICD10: I10] Berenice Cohen MD [facility] CPT-4: 87124 03/30/2016 ([id number]) 57508 EST. PATIENT, LEVEL III Diagnosis: Recurrent oral aphthae[ICD10: K12.0] Berenice Cohen MD [facility] CPT-4: 99824 01/25/2016 ([id number]) 76134 EST. PATIENT, LEVEL III Diagnosis: Essential (primary) hypertension[ICD10: I10] Berenice Cohen MD [facility] CPT-4: 41358 12/24/2015 89541 EST. PATIENT, LEVEL III Diagnosis: Other acute sinusitis[ICD10: J01.80] Diagnosis: Other allergic rhinitis[ICD10: J30.89] Evelyn Cohen MD, [facility] CPT-4: 28984 12/18/2015 ([id number]) Miscellaneous no charge Diagnosis: Essential (primary) hypertension[ICD10: I10] Evelyn Cohen MD, [facility] CPT-4: 29917 12/11/2015 ([id number]) 81933 EST. PATIENT, LEVEL IV Diagnosis: Essential (primary) hypertension[ICD10: I10] Diagnosis: Other abnormal glucose[ICD10: R73.09] Diagnosis: Encounter for immunization[ICD10: Z23] Berenice Cohen MD, [facility] CPT-4: 04273 11/26/2015 ([id number]) Miscellaneous no charge Diagnosis: Bitten by dog, initial encounter[ICD10: W54.0XXA] Evelyn Cohen MD, [facility] CPT-4: 31515 10/29/2015 ([id number]) Miscellaneous no charge Diagnosis: Essential (primary) hypertension[ICD10: I10] Diagnosis: Bitten by dog, initial encounter[ICD10: W54.0XXA] Evelyn Cohen MD, [facility] CPT-4: 82652 10/23/2015 85593 EST. PATIENT, LEVEL III Diagnosis: Cellulitis of face[ICD10: L03.211] Diagnosis: Bitten by dog, initial encounter[ICD10: W54.0XXA] Evelyn Cohen MD, [facility] CPT-4: 27406 10/21/2015 ([id number]) Miscellaneous no charge Diagnosis: Essential (primary) hypertension[ICD10: I10] Evelyn Cohen MD, [facility] CPT-4: 41378 07/15/2015 ([id number]) 22854 EST. PATIENT, LEVEL IV Diagnosis: Essential (primary) hypertension[ICD10: I10] Diagnosis: Mixed hyperlipidemia[ICD10: E78.2] Diagnosis: Dry mouth, unspecified[ICD10: R68.2] Berenice Cohen MD, [facility] CPT-4: 99190 06/15/2015 ([id number]) Miscellaneous no charge Diagnosis: Essential (primary) hypertension[ICD10: I10] Doris Cohen MD, [facility] CPT-4: 81220 06/05/2015 ([id number]) 32653 EST. PATIENT, LEVEL IV Diagnosis: Mammographic microcalcification found on diagnostic imaging of breast [ICD10: R92.0] Diagnosis: Edema, unspecified[ICD10: R60.9] Diagnosis: Essential (primary) hypertension[ICD10: I10] Berenice Cohen MD, [facility] CPT-4: 61113 05/19/2015 77897 EST. PATIENT, LEVEL IV Diagnosis: Other acute sinusitis[ICD10: J01.80] Diagnosis: Acute nasopharyngitis [common cold][ICD10: J00] Diagnosis: Other allergic rhinitis[ICD10: J30.89] Diagnosis: Localized edema[ICD10: R60.0] Diagnosis: Mixed hyperlipidemia[ICD10: E78.2] Evelyn Cohen MD, [facility] CPT-4: 94528 04/24/2015 ([id number]) 28901 EST. PATIENT, LEVEL IV Diagnosis: Essential (primary) hypertension[ICD10: I10] Diagnosis: Abscess of liver[ICD10: K75.0] Diagnosis: Anemia, unspecified[ICD10: D64.9] Berenice Cohen MD, [facility] CPT-4: 49911 03/12/2015 80890 EST. PATIENT, LEVEL IV Diagnosis: Essential (primary) hypertension[ICD10: I10] Diagnosis: Candidal stomatitis[ICD10: B37.0] Diagnosis: Pain in unspecified knee[ICD10: M25.569] Diagnosis: Edema, unspecified[ICD10: R60.9] Evelyn Cohen MD, [facility] CPT- 4: 42795 01/12/2015 ([id number]) 34341 EST. PATIENT, LEVEL III Diagnosis: Pain in right foot[ICD10: M79.671] Berenice Cohen MD, [facility] CPT-4: 30003 12/11/2014 ([id number]) 60884 EST. PATIENT, LEVEL IV Diagnosis: Abscess of liver[ICD10: K75.0] Diagnosis: Hypo-osmolality and hyponatremia[ICD10: E87.1] Diagnosis: Essential (primary) hypertension[ICD10: I10] Diagnosis: VACCIN FOR INFLUENZA[ICD10: Z23] Berenice Cohen MD, [facility] CPT-4: 92990 12/01/2014 ([id number]) OFFICE VISIT, NEW - LEVEL 4 Diagnosis: ESSENTIAL HYPERTENSION[ICD9: 401.9] Diagnosis: Chronic maxillary sinusitis[ICD9: 473.0] Berenice Cohen MD, [facility] CPT-4: 34232 08/14/2014 Plan of Care Planned Activity Notes Codes Status Date Visit Plan: Medicare Exam - today we [...] [facility] [facility] - Annual Wellness Visit 02/08/2017 [...] today 12/22/2016 Appointment: Berenice Cohen WPtel: [phone] [facility] (15 min) Moderate 12/22/2016 Patient Education: [...] spray. 12/16/2016 Appointment: Evelyn West WPtel: [phone] [facility] (30 min) Complex 12/16/2016 Patient Education: Patient Medication Summary Completed 12/16/2016 Appointment: Berenice Cohen WPtel: [phone] [facility] (15 min) Moderate 11/15/2016 Visit Plan: [...] on carbohydrates. 08/15/2016 [facility]ment[phone] [place] (15 min) Moderate 08/15/2016 Patient Education: Patient Medication Summary Completed 08/15/2016 Appointment: Doris Sheffield WPtel: [phone] [phone] [place] (15 min) Moderate 08/05/2016 Visit Plan: [...] WPtel: [phone] [facility] [...] ear flushed 07/21/2016 Appointment: Doris Sheffield WPtel: [phone] [phone] (15 min) Moderate 07/21/2016 Patient Education: Patient [...] 10mg nightly. 05/16/2016 [facility]ment: [phone] (15 min) Moderate 05/16/2016 Patient Education: [...] or concerns. 04/06/2016 [facility]ment[phone] (10 min) Simple 04/06/2016 Patient Education: Patient [...] twice daily. 03/30/2016 Appointment: Berenice Cohen WPtel: [facility] (15 min) Moderate 03/30/2016 Patient Education: Patient Medication Summary Completed 03/30/2016 Appointment: Berenice Cohen WPtel: [facility] (15 min) Moderate 03/24/2016 Visit Plan: [...] care surrogate. 02/01/2016 Appointment: Evelyn West WPtel: [facility] [facility] - Annual Wellness Visit 02/01/2016 Patient Education: Patient Medication Summary Completed 02/01/2016 Visit Plan: Apthous ulcer - rx for acyclovir 800mg tid x7 days Sample of Voltaren gel to use on knees tid prn 01/25/2016 Appointment: Berenice Cohen WPtel: [facility] (15 min) Moderate 01/25/2016 Patient Education: [...] at home. 12/24/2015 Appointment: Berenice Cohen WPtel: [phone] [facility] (15 min) Moderate 12/24/2015 Patient [...] show improvement. 12/18/2015 Appointment: Doris Sheffield WPtel: [phone] [phone] [...] meal - 11/26/2015 Appointment: Berenice Cohen WPtel: [facility] (15 min) Moderate 11/26/2015 Patient [...] pain. 10/21/2015 Appointment: Doris Sheffield WPtel: [phone] [phone] [place] (15 min) Moderate 10/21/2015 Patient Education: [...] spray 06/15/2015 Appointment: Berenice Cohen WPtel: [phone] [facility] [place] (15 min) Moderate 06/15/2015 Patient Education: Patient Medication Summary Completed 06/15/2015 Patient Education: Patient Medication Summary Completed 06/12/2015 Appointment: Berenice Cohen WPtel: [phone] [facility] [place] (15 min) Moderate 06/11/2015 Appointment: Nurse [...] the day 03/12/2015 Appointment: Berenice Cohen WPtel: [facility] (15 min) Moderate 03/12/2015 Patient Education: Patient [...] appointment with then soon. Pt to try [place] rub on the knees to help reduce [...] is sore 12/11/2014 Appointment: [facility] (15 min) Moderate 12/11/2014 Patient Education: Patient [...] not improving. 12/01/2014 Appointment: Berenice Cohen WPtel: [phone] [facility] (15 min) Moderate 12/01/2014 Patient Education: Patient Medication Summary Completed 12/01/2014 Patient Education: Hypertension Completed 12/01/2014 Appointment: Berenice Cohen WPtel: [facility] (15 min) Moderate 09/15/2014 Visit [...] not improve. 08/14/2014 Appointment: [facility] [place] ([place] New Patient 08/14/2014 Patient Education: Patient Medication Summary Completed 08/14/2014 Patient Education: Hypertension Completed 08/14/2014 Instructions Comment No fracture of foot - recommended pt to use aspercreme to the foot where it is sore [employer] voice over artist will contact you for a colon screen test - it is a colon cancer screening that you will do at home and send in to the voice over artist. . No fracture of foot - recommended pt to use aspercreme to the foot where it is sore co-enzyme Q10 - Qunol - take daily [...] Restart the lipitor at 10mg nightly. . Medicare Exam - today we discussed [...] if symptoms of mouth discomfort not improving. RETURN IN 1 WEEK FOR EAR FLUSHING . Sinusitis - Pt has acute infection - pain in face, maxillary region, Pt informed to use decongestant, RX given to patient, sinus rinses also recommended. Call if symptoms do not show improvement. Earache-finish ear drops-start abx for sinus infection-return in 1 week for follow up and to have ear flushed . Hypertension - well controlled - continue [...] Call if symptoms do not show improvement. try [place] on your knee. Decrease Salt in diet. [...] appointment with then soon. Pt to try [place] rub on the knees to help reduce [...] in blood pressure readings at home. . Allergies - chronic - recommended pt [...] Call if symptoms do not show improvement. DECREASE THE AMLODIPINE TO 1 PILL DAILY. [...] Elevated glucose - cut back on carbohydrates. change the amlodipine to one pill twice [...] mouth spray prn during the day . Apthous ulcer - rx for acyclovir [...] cut back on carbohydrates. prevnar vaccine today centrum silver for women or a One [...] DOPA paperwork for health care surrogate. . Cellulitis - The patient was instructed [...]
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
--- OUTSIDE RECORDS SUMMARY | 2018-06-30 15:07 | XMS REPORT | Continuity of Care Document ---
Author Organization Unknown Address Unknown Allergies Active Description Code Type Severity Reaction Onset Reported/Identified Relationship to Patient Clinical Status Yes nitrofurantoin [id number] Drug Allergy Unknown N/A 10/28/2013 Medications There is no data. Problems Date Dx Coded Attending Type Code Diagnosis Diagnosed By 10/28/2013 YASMEEN TAYLOR APRN Ot 459.89 CIRCULATORY DISEASE NEC 10/28/2013 YASMEEN TAYLOR APRN Ot 729.5 PAIN IN LIMB 08/16/2014 LAKESHA CARLOS MD Ot 288.60 LEUKOCYTOSIS, UNSPECIFIED 08/16/2014 LAKESHA CARLOS MD Ot 780.60 FEVER, UNSPECIFIED 08/16/2014 LAKESHA CARLOS MD Ot 784.0 HEADACHE 08/18/2014 MICHELE NIEVES, NELY Alves Ot 401.9 08/18/2014 MICHELE NIEVES, NELY Alves Ot 572.0 08/18/2014 MICHELE NIEVES, NELY A Ot V10.83 08/18/2014 MICHELE NIEVES, NELY A Ot V13.02 08/18/2014 MICHELE NIEVES, NELY A Ot 401.9 08/18/2014 MICHELE NIEVES, NELY A Ot 572.0 08/18/2014 MICHELE NIEVES, NELY A Ot V10.83 08/18/2014 MICHELE NIEVES, NELY A Ot V13.02 08/21/2014 MICHELE NIEVES, NELY A Ot 401.9 08/21/2014 MICHELE NIEVES, NELY A Ot 572.0 08/21/2014 MICHELE NIEVES, NELY A Ot V10.83 08/21/2014 MICHELE NIEVES, NELY A Ot V13.02 08/22/2014 MICHELE NIEVES, NELY [...] Ot 276.8 HYPOPOTASSEMIA 09/01/2014 MICHELE NIEVES, NELY Alves Ot 285.9 ANEMIA NOS 09/01/2014 MICHELE NIEVES, [...] DAVID T Ot 401.9 HYPERTENSION NOS 09/05/2014 JUAN DAVID FAIRBANKS MD T Ot 572.0 ABSCESS OF LIVER 09/05/2014 JUAN DAVID FAIRBANKS MD T Ot 780.60 FEVER, UNSPECIFIED 09/05/2014 JUAN DAVID FAIRBANKS MD T Ot 784.0 HEADACHE 09/05/2014 JUAN DAVID FAIRBANKS MD T Ot 995.91 SEPSIS 09/05/2014 TIKI NIEVES, JUAN DAVID Morales Ot V58.69 OT MED,LT,CURRENT USE 09/18/2014 MICHELE NIEVES, NELY Alves Ot 285.9 ANEMIA NOS 09/18/2014 NELY BAUTISTA MD Ot 572.0 ABSCESS OF LIVER 10/14/2014 KIRK BROWN MD Ot 572.0 10/15/2014 KIRK BROWN MD Ot 572.0 10/16/2014 DONTRELL ACOSTA MD Ot 572.0 10/16/2014 DONTRELL ACOSTA MD Ot V58.62 10/24/2014 DONTRELL ACOSTA MD Ot 572.0 10/24/2014 DONTRELL ACOSTA MD A Ot V58.62 10/28/2014 NELY BAUTISTA MD Ot 285.9 10/28/2014 NELY BAUTISTA MD Ot 572.0 10/30/2014 KIRK BROWN MD Ot 285.9 10/30/2014 KIRK BROWN MD Ot 572.0 11/10/2014 KIRK BROWN MD Ot 572.0 11/11/2014 DONTRELL ACOSTA MD Ot 572.0 11/13/2014 DONTRELL ACOSTA MD A Ot 572.0 11/13/2014 DONTRELL ACOSTA MD A Ot V58.62 01/01/2015 NELY BAUTISTA MD [...] 05/07/2015 Ot V10.02 05/07/2015 Ot V76.12 05/07/2015 MICHAEL ECHEVERRIA MD Ot 733.00 05/07/2015 JACKI NIVEES, MICHAEL Mcconnell Ot V76.12 05/07/2015 JACKI NIEVES, MICHAEL Mcconnell Ot 786.05 05/07/2015 JACKI NIEVES, MICHAEL Mcconnell Ot V76.12 05/07/2015 STEPHANIE NIEVES, KIRK J [...] MD Ot M85.80 06/02/2015 NELY BAUTISTA MD Ot R92.8 06/02/2015 NELY BAUTISTA MD Ot Z12.31 06/09/2015 ANGELA BENDER Ot R92.8 08/28/2015 LAKESHA CARLOS MD Ot 288.60 LEUKOCYTOSIS, UNSPECIFIED 08/28/2015 LAKESHA CARLOS MD Ot 780.60 FEVER, UNSPECIFIED 08/28/2015 LAKESHA CARLOS MD Ot 784.0 HEADACHE 09/28/2015 KIRK BROWN MD Ot 285.9 ANEMIA NOS 09/28/2015 KIRK BROWN MD Ot 572.0 ABSCESS OF LIVER 11/12/2015 NELY BAUITSTA MD A Ot R92.2 INCONCLUSIVE MAMMOGRAM 11/13/2015 [...] 285.9 ANEMIA NOS 05/30/2016 KIRK BROWN MD Ot 572.0 ABSCESS OF LIVER 05/30/2016 NELY [...] R92.1 MAMMOGRAPHIC CALCIFCN FOUND ON DIAGNOSTI 07/01/2016 ANTHONY OROZCO TAILERCPA Ot R92.1 MAMMOGRAPHIC CALCIFCN FOUND ON DIAGNOSTI 12/19/2016 Ot V10.02 HX-ORAL/ PHARYNX MALG NEC 12/19/2016 Ot V76.12 OTH SCREEN MAMMO-MALIGN NEOPLASM OF RAJANI 12/19/2016 MICHAEL ECHEVERRIA MD Ot 733.00 OSTEOPOROSIS NOS 12/19/2016 MICHAEL ECHEVERRIA MD Ot V76.12 OTH SCREEN MAMMO-MALIGN NEOPLASM OF RAJANI 12/19/2016 MICHAEL ECHEVERRIA MD Ot 786.05 SHORTNESS OF [...] MD Ot I51.7 CARDIOMEGALY 12/19/2016 NELY BAUTISTA MD, Ot M85.80 OTH DISRD OF BONE DENSITY AND STRUCTURE, 12/19/2016 NELY BAUTISTA MD Ot R92.8 OTH ABN AND INCONCLUSIVE FINDINGS ON DX 12/19/2016 NELY BAUTISTA MD Ot Z12.31 ENCNTR SCREEN MAMMOGRAM FOR MALIGNANT NE 12/19/2016 ANGELA BENDER OPHTHALMIC TECHNICIAN APPRENTICE Ot R92.8 OTH ABN AND INCONCLUSIVE FINDINGS ON DX 12/19/2016 NELY BAUTISTA MD Ot R92.2 INCONCLUSIVE MAMMOGRAM 12/19/2016 ANTHONY OROZCO TAILERCPA Ot R92.1 MAMMOGRAPHIC CALCIFCN FOUND ON DIAGNOSTI 12/19/2016 NELY BAUTISTA MD Ot R92.8 OTH ABN AND INCONCLUSIVE FINDINGS ON DX 01/10/2017 NELY BAUTISTA MD Ot R92.8 OTH ABN AND INCONCLUSIVE FINDINGS ON DX 02/19/2017 JUAN DAVID FAIRBANKS MD Ot I10 ESSENTIAL (PRIMARY) HYPERTENSION 02/19/2017 JUAN DAVID FAIRBANKS MD, Ot S61.210A LACERATION W/O FB OF R IDX FNGR W/O CHRISTIAN 02/19/2017 JUAN DAVID FAIBRANKS MD, Ot W29.8XXA CNTCT WITH OTHER POWERED HAND TOOLS AND 02/19/2017 JUAN DAVID FAIRBANKS MD, Ot Z23 ENCOUNTER FOR IMMUNIZATION 02/19/2017 JUAN DAVID FAIRBANKS MD, Ot Z82.49 FAMILY HX OF ISCHEM HEART DIS AND OTH DI 02/19/2017 JUAN DAVID FAIRBANKS MD, Ot Z85.820 PERSONAL HISTORY OF MALIGNANT MELANOMA O 02/19/2017 JUAN DAVID FAIRBANKS MD, Ot Z87.440 PERSONAL HISTORY OF URINARY (TRACT) INFE 02/19/2017 JUAN DAVID FAIRBANKS MD Ot Z87.59 PERSONAL HISTORY OF COMP OF PREG, CHLDBR 02/19/2017 JUAN DAVID FAIRBANKS MD, Ot Z90.710 ACQUIRED ABSENCE OF BOTH CERVIX AND UTER 02/19/2017 JUAN DAVID FAIRBANKS MD Ot Z90.89 ACQUIRED ABSENCE OF OTHER ORGANS 02/22/2017 JUAN DAVID FAIRBANKS MD, Ot I10 ESSENTIAL (PRIMARY) HYPERTENSION 02/22/2017 JUAN DAVID FAIRBANKS MD, Ot S61.210A LACERATION W/O FB OF R IDX FNGR W/O CHRISTIAN 02/22/2017 JUAN DAVID FAIRBANKS MD, Ot W29.8XXA CNTCT WITH OTHER POWERED HAND TOOLS AND 02/22/2017 JUAN DAVID FAIRBANKS MD, Ot Z23 ENCOUNTER FOR IMMUNIZATION 02/22/2017 JUAN DAVID FAIRBANKS MD, Ot Z82.49 FAMILY HX OF ISCHEM HEART DIS AND OTH DI 02/22/2017 JUAN DAVID FAIRBANKS MD, Ot Z85.820 PERSONAL HISTORY OF MALIGNANT MELANOMA O 02/22/2017 JUAN DAVID FAIRBANKS MD, Ot Z87.440 PERSONAL HISTORY OF URINARY (TRACT) INFE 02/22/2017 JUAN DAVID FAIRBANKS MD, Ot Z87.59 PERSONAL HISTORY OF COMP OF PREG, CHLDBR 02/22/2017 JUAN DAVID FAIRBANKS MD, Ot Z90.710 ACQUIRED ABSENCE OF BOTH CERVIX AND UTER 02/22/2017 JUAN DAVID FAIRBANKS MD, Ot Z90.89 ACQUIRED ABSENCE OF OTHER ORGANS 11/26/2017 ALBERT WASHINGTON MD Ot E11.65 TYPE 2 DIABETES MELLITUS WITH HYPERGLYCE 11/26/2017 ALBERT WASHINGTON MD, Ot E66.9 OBESITY, UNSPECIFIED 11/26/2017 ALBERT WASHINGTON MD, Ot I10 ESSENTIAL (PRIMARY) HYPERTENSION 11/29/2017 ALBERT WASHINGTON MD, Ot E11.65 TYPE 2 DIABETES MELLITUS WITH HYPERGLYCE 11/29/2017 ALBERT WASHINGTON MD, Ot E66.9 OBESITY, UNSPECIFIED 11/29/2017 ALBERT WASHINGTON MD, Ot I10 ESSENTIAL (PRIMARY) HYPERTENSION 12/15/2017 ADITYA MARTINEZ APRN Ot M17.0 BILATERAL PRIMARY OSTEOARTHRITIS OF KNEE 12/15/2017 ADITYA MARTINEZ APRN Ot R29.898 OT SYMPTOMS AND SIGNS INVOLVING THE MUS 12/22/2017 ANTHONY OROZCO APRN Ot Z12.31 ENCNTR SCREEN MAMMOGRAM FOR MALIGNANT NE 12/29/2017 ANTHONY OROZCO APRN Ot Z12.31 ENCNTR SCREEN MAMMOGRAM FOR MALIGNANT NE 01/12/2018 ADITYA MARTINEZ E TAILERCPA Ot M17.0 BILATERAL PRIMARY OSTEOARTHRITIS OF KNEE 01/12/2018 MICHELLE ADITYA E TAILERCPA Ot R29.898 OTH SYMPTOMS AND SIGNS INVOLVING THE MUS 01/22/2018 MICHELLE ADITYA E TAILERCPA Ot M17.0 BILATERAL PRIMARY OSTEOARTHRITIS OF KNEE 01/22/2018 MICHELLE ADITYA E TAILERCPA Ot R29.898 OTH SYMPTOMS AND SIGNS INVOLVING THE MUS 01/22/2018 ANTHONY OROZCO TAILERCPA Ot Z12.31 ENCNTR SCREEN MAMMOGRAM FOR MALIGNANT NE 03/13/2018 MICHELLE ADITYA E TAILERCPA Ot M17.0 BILATERAL PRIMARY OSTEOARTHRITIS OF KNEE 03/13/2018 MICHELLE ADITYA Dawn TAILERCPA Ot R29.898 OTH SYMPTOMS AND SIGNS INVOLVING THE MUS 03/15/2018 MICHELLE ADITYA E TAILERCPA Ot M17.0 BILATERAL PRIMARY OSTEOARTHRITIS OF KNEE 03/15/2018 MICHELLE ADITYA E TAILERCPA Ot R29.898 OTH SYMPTOMS AND SIGNS INVOLVING THE MUS 03/15/2018 MICHELLE ADITYA E TAILERCPA Ot M17.0 BILATERAL PRIMARY OSTEOARTHRITIS OF KNEE 03/15/2018 MICHELLE ADITYA E TAILERCPA Ot R29.898 OTH SYMPTOMS AND SIGNS INVOLVING THE MUS 06/01/2018 ANIRUDH NAQVI MD Ot E78.2 MIXED HYPERLIPIDEMIA 06/01/2018 ANIRUDH NAQVI MD Ot I10 ESSENTIAL (PRIMARY) HYPERTENSION 06/01/2018 ANIRUDH NAQVI MD Ot I35.0 NONRHEUMATIC AORTIC (VALVE) STENOSIS 06/01/2018 ANIRUDH NAQVI MD, Ot Z82.49 FAMILY HX OF ISCHEM HEART DIS AND OTH DI 06/01/2018 ANIRUDH NAQVI MD, Ot Z83.3 FAMILY HISTORY OF DIABETES MELLITUS Procedures Code Description Performed By Performed On 50.91 PERCUTAN LIVER ASPIRAT 08/18/2014 54.91 PERCUTANEOUS ABDOMINAL DRAINAGE 08/26/2014 Results There is no data. Encounters ACCT No. Visit Date/Time Discharge Status Pt. Type Provider Facility Loc./Unit Complaint [id number] 05/31/2018 13:27:00 05/31/2018 23:59:59 CLS Outpatient ANIRUDH NAQVI MD [facility] CARD HTN [id number] 03/14/2018 00:08:00 03/14/2018 23:59:59 CLS Preadmit ADITYA MARTINEZ TAILERCPA Via [facility] REHAB B LE WEAKNESS PRIMARY OA B KNEES [id number] 02/01/2018 11:15:00 03/13/2018 00:01:00 DIS Outpatient ADITYA MARTINEZ TAILERCPA Via [facility] REHAB B LE WEAKNESS PRIMARY OA B KNEES [id number] 12/28/2017 11:01:00 12/28/2017 23:59:59 CLS Outpatient ANTHONY OROZCO APRN Via [facility] RAD SCREENING [id number] 11/27/2017 10:00:00 11/27/2017 23:59:59 CLS Preadmit ALBERT WASHINGTON MD Via [facility] TYPE 2 DIABETES [id number] 11/02/2017 10:03:00 11/26/2017 00:01:00 DIS Outpatient ALBERT WASHINGTON MD [facility] TYPE 2 DIABETES [id number] 03/01/2017 17:00:00 03/01/2017 17:36:00 DIS Emergency JUAN DAVID FAIRBANKS MD Via [facility] ER STITCH REMOVAL [id number] 02/19/2017 16:32:00 02/19/2017 19:25:00 DIS Emergency JUAN DAVID FAIRBANKS MD Via [facility] ER R HAND FINGERS LAC [id number] 12/19/2016 12:36:00 12/19/2016 23:59:59 CLS Outpatient NELY BAUTISTA MD [facility] RAD 6 MO FOLLOW UP-ABN MAMMOGRAM [id number] 05/30/2016 11:58:00 05/30/2016 23:59:59 CLS Outpatient ANTHONY OROZCO APRN Via [facility] RAD 6 MO FOLLOW UP [id number] 11/12/2015 08:35:00 11/12/2015 23:59:59 CLS Outpatient NELY BAUTISTA MD [facility] RAD FOLLOW UP ABNORMAL MAMMO [id number] 05/19/2015 08:12:00 05/19/2015 23:59:59 CLS Outpatient ANGELA BENDER [facility] RAD ABNORMAL MAMMO [id number] 05/07/2015 10:11:00 05/07/2015 23:59:59 CLS Outpatient NELY BAUTISTA MD [facility] RAD SCREENING, OSTEOPENIA , [id number] 03/20/2015 12:56:00 03/20/2015 23:59:59 CLS Outpatient ALBERT HUDDLESTON MD Via [facility] REHAB SPRAIN OF LIGAMENT OF RIGHT ANKLE [id number] 12/10/2014 18:58:00 12/10/2014 23:59:59 CLS Outpatient NELY BAUTISTA MD Via [facility] RAD FOOT PAIN [id number] 10/23/2014 16:10:00 10/23/2014 23:59:59 CLS Outpatient DONTRELL ACOSTA MD Via [facility] LIVER ABSCESS, ANTIBIOTIC TX,KIDNEY AND LYTES EVIN [id number] 10/20/2014 14:53:00 10/20/2014 23:59:59 CLS Outpatient DONTRELL ACOSTA MD [facility] LIVER ABSCESS [id number] 10/13/2014 13:05:00 10/13/2014 23:59:59 CLS Outpatient KIRK BROWN MD [facility] LIVER ABSCESS [id number] 10/06/2014 13:40:00 10/06/2014 23:59:59 CLS Outpatient KIRK BROWN MD [facility] LIVER ABSCESS [id number] 10/06/2014 13:40:00 10/06/2014 23:59:59 CLS Outpatient NELY BAUTISTA MD Via [facility] ANEMIA [id number] 09/29/2014 13:40:00 09/29/2014 23:59:59 CLS Outpatient DONTRELL ACOSTA MD [facility] LIVER ABSCESS, IV ABX [id number] 09/25/2014 17:00:00 09/25/2014 23:59:59 CLS Outpatient DONTRELL ACOSTA MD [facility] LIVER ABSCESS [id number] 09/23/2014 13:07:00 09/23/2014 23:59:59 CLS Outpatient KIRK BROWN MD [facility] LIVER ABSCESS [id number] 09/17/2014 17:07:00 09/18/2014 15:00:00 DIS Outpatient NELY BAUTISTA MD [facility] SDC ANEMIA [id number] 09/15/2014 13:00:00 09/15/2014 23:59:59 CLS Outpatient KIRK BROWN MD [facility] HH LIVER ABSCESS [id number] 09/04/2014 21:00:00 09/05/2014 03:07:00 DIS Emergency TIKI NIEVES, JUAN DAVID Morales [facility] ER WEAKNESS,FEVER, VOMITING [id number] 08/22/2014 09:37:00 09/01/2014 10:58:00 DIS Inpatient NELY BAUTISTA MD Via [facility] SURGICAL SWB HEPATIC ABSCESS [id number] 08/17/2014 19:14:00 08/22/2014 09:33:00 DIS Inpatient NELY BAUTISTA MD Via [facility] SURGICAL LIVER ABCESS/ LEUKOCYTOSIS [id number] 08/16/2014 15:07:00 08/16/2014 19:12:00 DIS Emergency TERRANCE NIEVES, LAKESHA Ewing [facility] ER FEVER,HEADACHE [id number] 10/28/2013 16:32:00 10/28/2013 18:51:00 DIS Emergency YASMEEN TAYLOR TAILERCPA Via [facility] ER R KNEE BRUISING [id number] 09/24/2013 10:20:00 09/24/2013 23:59:59 CLS Outpatient MICHAEL ECHEVERRIA MD Via [facility] RAD SCREENING,SOB [id number] 08/10/2012 09:37:00 08/10/2012 23:59:59 CLS Outpatient MICHAEL ECHEVERRIA MD Via [facility] RAD SCREENING, OSTEOPOROSIS [id number] 07/18/2011 11:18:00 Document Registration [id number] 12/30/2016 09:30:46 12/30/2016 23:59:59 CLS Outpatient
--- NOTE | 2018-06-30 15:26 | NUR ---
PT VERBALIZED FEELING EXCESSIVELY NERVOUS. PT VERBALIZED A HX OF HIGH ANXIETY, ASKED IF SHE COULD HAVE A MEDICATION FOR HER NERVES. PROVIDER NOTIFIED.
[2018-06-30 15:33] LABS: BILIRUBIN,URINE NEGATIVE (NEGATIVE); CLARITY,URINE CLEAR; COLOR,URINE YELLOW; GLUCOSE, URINE (UA) NEGATIVE (NEGATIVE); KETONES,URINE NEGATIVE (NEGATIVE); LEUKOCYTE ESTERASE ,URINE NEGATIVE (NEGATIVE); NITRITE,URINE NEGATIVE (NEGATIVE); PH,URINE 7 (5-9); PROTEIN,URINE 2+ (NEGATIVE); UROBILINOGEN,URINE NORMAL (NORMAL)
[2018-06-30 15:40] LABS: BACTERIA,URINE NEGATIVE /HPF
[2018-06-30] MEDS ORDERED: LORazepam INJ 2 MG/ML (ATIVAN) VIAL IVP ONE (16:00)
[2018-06-30 16:40] VITALS: BP 154/55
== END 2018-06-30 16:47 | disposition short-term general hospital (02) ==
LOC: EDUNIT# 13:37 → ER 13:38
DX: S12.101A Unspecified nondisplaced fracture of second cervical vertebra, initial encounter for closed fracture (principal); R42 Dizziness and giddiness; I10 Essential (primary) hypertension; R40.2142 Coma scale, eyes open, spontaneous, at arrival to emergency department; R40.2252 Coma scale, best verbal response, oriented, at arrival to emergency department; R40.2362 Coma scale, best motor response, obeys commands, at arrival to emergency department; Z87.440 Personal history of urinary (tract) infections; Z82.49 Family history of ischemic heart disease and other diseases of the circulatory system; Z85.820 Personal history of malignant melanoma of skin; Z90.89 Acquired absence of other organs; Z98.890 Other specified postprocedural states; Z90.710 Acquired absence of both cervix and uterus; Z88.8 Allergy status to other drugs, medicaments and biological substances; V49.50XA Passenger injured in collision with unspecified motor vehicles in traffic accident, initial encounter
CPT/HCPCS: 36415; 51702; 70450; 71045; 72125; 80053; 81000; 83690; 84484; 85025; 93005

== ENCOUNTER → 2019-03-13 | Outpatient (CLI) | payer MEDICARE, OTHER ==
--- NOTE | 2019-03-14 09:54 | Diagnostic Imaging Report ---
INDICATION: Routine screening. Comparison is made with prior mammogram 12/28/2017 and 12/19/2016. 2-D and 3-D bilateral screening mammography was performed with CAD. Scattered fibroglandular densities are identified bilaterally. The overall parenchymal pattern is stable. Benign calcifications bilaterally appear stable. No spiculated mass or malignant-appearing microcalcifications are seen. Axillae are unremarkable. IMPRESSION: BI-RADS Category 2 No mammographic features suspicious for malignancy are identified. ACR BI-RADS Category 2: Benign findings. Result letter will be mailed to the patient. Note: At least 10% of breast cancer is not imaged by mammography. Dictated by: Dictated on workstation # [id number]
== END ==
LOC: RAD 15:37
PROVIDERS: ATTEND Nurse Practitioner Family
DX: Z12.31 Encounter for screening mammogram for malignant neoplasm of breast (principal)
CPT/HCPCS: 77067

== ENCOUNTER → 2020-10-30 | Outpatient (CLI) | payer MEDICARE, OTHER ==
--- NOTE | 2020-10-30 13:18 | Diagnostic Imaging Report ---
INDICATION: Routine screening. Comparison is made with prior mammograms from 03/13/2019 and 12/28/2017. 2-D and 3-D bilateral screening mammography was performed with CAD. Scattered fibroglandular densities are identified bilaterally. There are coarse benign calcifications in both breasts. No mass or malignant appearing microcalcifications are seen. Axillae are unremarkable. IMPRESSION: BI-RADS Category 2 No mammographic features suspicious for malignancy are identified. ACR BI-RADS Category 2: Benign findings. Result letter will be mailed to the patient. Note: At least 10% of breast cancer is not imaged by mammography. Dictated by: Dictated on workstation # [id number]
== END ==
LOC: RAD 11:19
PROVIDERS: ATTEND Nurse Practitioner Family
DX: Z12.31 Encounter for screening mammogram for malignant neoplasm of breast (principal)
CPT/HCPCS: 77063; 77067